=== PATIENT | male | born 1965 | race Caucasian/White ===

== ENCOUNTER 2022-11-23 07:44 | Inpatient (IN) | payer MEDICARE, MEDICAID, SELFPAY ==
[2022-11-23] VITALS (7 sets, daily range): BP systolic 151–161; BP diastolic 80–91; PULSE 60–61; RESP 18–20; TEMP 36.4–36.8; O2SAT 91–99; BMI 40.9
--- NOTE | ~2022-11-23 | US_ITS ---
EXAMINATION: US venous doppler [facility] DATE: 11/24/2022 13:48 INDICATION: Left lower limb edema. TECHNIQUE: Grayscale ultrasound images without and with compression and Doppler ultrasound images of the left lower extremity veins were obtained. COMPARISON: None. FINDINGS: The visualized portions of left common femoral vein, profunda (deep) femoral vein, femoral vein, popl iteal vein, peroneal veins, posterior tibial veins, and greater saphenous vein outflow are patent. Zepeda bcutaneous edema is noted. IMPRESSION: 1. No deep venous thrombosis. Reviewed, dictated and finalized at location A.
--- NOTE | ~2022-11-23 | CT_ITS ---
EXAMINATION: CT brain wo con DATE: 11/23/2022 18:40 INDICATION: confusion . TECHNIQUE: Computed tomography (CT) of the head was performed without intravenous contrast. The mA wa s adjusted according to patient size. Iterative reconstruction technique was employed. The dose-lengt h product was 681.00 mGy-cm. COMPARISON: None. FINDINGS: No acute intracranial hemorrhage or extra-axial fluid collection. No hydrocephalus, mass, or herniation. No acute ischemic infarct. Unremarkable dural venous sinus attenuation. No acute osseous abnormality. The aerated spaces are clear. Mild atrophy and chronic white matter change. Mild atherosclerotic intracranial calcification. IMPRESSION: No acute intracranial process. Reviewed, dictated and finalized at location K.
--- NOTE | ~2022-11-23 | US_ITS ---
EXAMINATION: US arterial ankle brachial ind DATE: 11/24/2022 13:48 INDICATION: Left calf ulcer. TECHNIQUE: Segmental pressures and plethysmographic and Doppler waveforms of the brachial and lower e xtremity arteries were obtained. COMPARISON: None. FINDINGS: Right and left brachial artery pressures of 136 mm Hg and 126 mm Hg, respectively, are concordant (no rmal difference <= 30 mmHg). There is a right below-knee amputation. The left ankle-brachial index (PAUL) could not be measured due to inability to cuff occlude the arteri es. (normal >= 0.9-1.0). The left great toe-brachial index (TBI) is 0.86 (normal >= 0.65). Arterial D oppler waveforms are biphasic at the ankle. IMPRESSION: 1. Normal left TBI and nondiagnostic left PAUL. No significant arterial occlusive disease. 2. Right below-knee amputation. Reviewed, dictated and finalized at location A. IMPRESSION: 1. Normal left TBI and nondiagnostic left PAUL. No significant arterial occlusiv e disease. 2. Right below-knee amputation.
--- NOTE | 2022-11-23 08:01 | ED.WOUNDLAC ---
HPI - Wound/Laceration General Chief Complaint: Wound/Laceration Stated Complaint: heel wound Time Seen by Provider: 11/23/22 07:48 History of Present Illness HPI narrative: Pt presents with a wound to his left leg and surrounding redness and bleeding from wound. Pt says the wounds have been present for two days and he has been on oral antibiotics but it is getting worse. Pt is coming [place]. Pt has history of DM and cellulitis. Pt has right BKA. Related Data Home Medications Medication Instructions Recorded Confirmed Lactobacillus acidophilus 2,000 mmu cells PO BID 11/22/22 (Acidophilus capsule) Saccharomyces boulardii 250 mg 250 mg PO DAILY 11/22/22 capsule (Florastor) amitriptyline 50 mg tablet 50 mg PO QHS 11/22/22 apixaban 5 mg tablet (Eliquis) 5 mg PO BID 11/22/22 aspirin 81 mg tablet,delayed 81 mg PO DAILY 11/22/22 release (Adult Low Dose Aspirin) atorvastatin 40 mg tablet (Lipitor) 40 mg PO QHS 11/22/22 benzonatate 100 mg capsule 100 mg PO TID PRN 11/22/22 buspirone 15 mg tablet 15 mg PO TID 11/22/22 clopidogrel 75 mg tablet (Plavix) 75 mg PO DAILY 11/22/22 doxycycline hyclate 100 mg capsule 100 mg PO BID 11/22/22 doxycycline hyclate 100 mg capsule 100 mg PO BID 11/22/22 dulaglutide 0.75 mg/0.5 mL 0.75 mg subcut WEEKLY 11/22/22 subcutaneous pen injector (Trulicity) famotidine 20 mg tablet 20 mg PO Q12H 11/22/22 ferrous sulfate 325 mg (65 mg 325 mg PO BID 11/22/22 iron) tablet,delayed release fluticasone propionate 110 1 puff inhalation Q12H 11/22/22 mcg/actuation HFA aerosol inhaler furosemide 40 mg tablet 40 mg PO QAM 11/22/22 gabapentin 100 mg capsule 100 mg PO Q8H 11/22/22 guaifenesin 100 mg/5 mL oral liquid 200 mg PO Q6H PRN 11/22/22 hydralazine 25 mg tablet 25 mg PO Q8H 11/22/22 insulin glargine 100 unit/mL (3 23 unit subcut QPM 11/22/22 mL) subcutaneous pen insulin lispro 100 unit/mL 10 unit subcut .before meals 11/22/22 subcutaneous solution (Admelog U-100 Insulin lispro) ipratropium 0.5 mg-albuterol 3 mg 3 ml inhalation Q6H PRN 11/22/22 (2.5 mg base)/3 mL nebulization soln isosorbide dinitrate 30 mg tablet 30 mg PO .am 11/22/22 levothyroxine 75 mcg capsule 75 mcg PO DAILY 11/22/22 losartan 50 mg tablet 50 mg PO DAILY 11/22/22 metoclopramide HCl 5 mg tablet 5 mg PO DAILY 11/22/22 metolazone 5 mg tablet 5 mg PO DAILY 11/22/22 metoprolol tartrate 50 mg tablet 50 mg PO BID 11/22/22 pyridoxine (vitamin B6) 50 mg 25 mg PO DAILY 11/22/22 tablet sennosides 8.6 mg-docusate sodium 1 tab-cap PO BID PRN 11/22/22 50 mg capsule (Senna Plus) tiotropium bromide 18 mcg capsule 1 cap inhalation DAILY 11/22/22 with inhalation device (Spiriva with HandiHaler) tramadol 50 mg tablet 50 mg PO Q6H PRN 11/22/22 trazodone 100 mg tablet 100 mg PO QHS PRN 11/22/22 umeclidinium 62.5 mcg-vilanterol 1 inh inhalation DAILY 11/22/22 25 mcg/actuation powdr for inhalation (Anoro Ellipta) Allergies Allergy/AdvReac Type Severity Reaction Status Date / Time No Known Allergies Allergy Unverified 11/22/22 13:49 Review of Systems Review of Systems: All systems reviewed & are unremarkable except as noted in HPI and below PMFSH Past Medical History Medical History (Updated 11/23/22 @ 09:05 by Leonel Obregon III, DO) Anxiety CAD (coronary artery disease) COPD (chronic obstructive pulmonary disease) CVA (cerebral vascular accident) Depression Diabetes Diastolic heart failure GERD (gastroesophageal reflux disease) Hyperlipidemia Hypertension Hypothyroidism PAF (paroxysmal atrial fibrillation) Peripheral neuropathy PVD (peripheral vascular disease) Spinal stenosis Surgical History Surgical History (Updated 11/22/22 @ 14:08 by Kelin Caldwell MD) History of hernia repair Hx of CABG Hx of right BKA Family History Family History Mother Diabetes mellitus Hypertension Heart
[2022-11-23 08:36] LABS: Basophils Percent Auto 0.7 % (0.2-1.2); Eosinophils Absolute Auto 0.1 K/mm3 (0-0.3); Hematocrit 26.8 % (42.0-52.0); Immature Granulocyte Absolute 0.01 K/mm3 (0.00-0.031); Immature Granulocyte Percent A 0.3 % (0-0.5); Lymphocytes Absolute Auto 0.29 K/mm3 (0.9-3.2); Lymphocytes Percent Auto 9.7 % (18.3-44.2); Mean Corpuscular HGB Conc 29.9 g/dl (32-36); Mean Corpuscular Hemoglobin 25.4 pg (26-34); Mean Corpuscular Volume 85.1 fl (80-100); Mean Platelet Volume 11.6 fl (7.4-10.4); Monocytes Absolute Auto 0.3 K/mm3 (0.1-0.6); Neutrophils Absolute Auto 2.3 K/mm3 (1.3-6.7); Neutrophils Percent Auto 76.3 % (45.5-73.1); Platelet Count Result 181 k/mm3 (150-375); Red Blood Count 3.15 M/mm3 (4.6-6.20); Red Cell Distribution Width 18.1 % (11.5-14.5)
[2022-11-23 08:47] LABS: INR 1.7; Lactic Acid Reflex 0.7 mmol/L (0.7-2.0); Prothrombin Time 19.4 Seconds (11.1-14.7)
[2022-11-23 08:48] LABS: Partial Thromboplastin Time 41.1 SECONDS (22.3-36.8)
[2022-11-23 08:51] LABS: Alanine Aminotransferase 22 U/L (6-50); Albumin Level 3.9 g/dL (3.5-5.1); Alkaline Phosphatase 250 U/L (38-126); Anion Gap 6 mmol/L (8-16); Aspartate Amino Transferase 41 U/L (17-59); Blood Urea Nitrogen 77 mg/dL (9-20); CRP 3.7 mg/dL (<1.0); Carbon Dioxide 25 mmol/L (22-30); Chloride 106 mmol/L (98-107); Estimated CRCL calculation 40 ml/min; Estimated Glomerular Filt Rate 27; Glucose 138 mg/dL (65-110); Potassium 5.8 mmol/L (3.4-5.0); Sodium 137 mmol/L (137-145)
[2022-11-23] MEDS: CEFEPIME 2 GM/NS 50 ML 2 GM/50 ML BAG IVPB (08:52)
[2022-11-23 08:59] LABS: Hypochromasia 1+ (NORMAL); Platelet Estimate Adequate (Adequate)
[2022-11-23 09:00] LABS: Ovalocytes 1+ (NORMAL); Schistocytes None Seen (NORMAL)
[2022-11-23 09:33] LABS: Erythrocyte Sedimentation Rate 79 mm/hr (0-20)
--- NOTE | 2022-11-23 11:30 | ADMGEN ---
This patient, Wilfredo Bose, was admitted to Medical Room 254-01. Patient/family oriented to hospital policies and general routines including ID bracelet, bed and alarms, visiting hours, pain management, procedures, bathroom and other care routines, personal items, smoking policy, room service/diet, and visiting hours. Information on how to activate the Rapid Response Team has been discussed. Patient/Family are encouraged to report perceived risks to care and to ask questions if they do not understand what they are told or what they should do.
[2022-11-23 12:05] LABS: Glucose Point of Care 149 mg/dl (65-105)
--- NOTE | 2022-11-23 12:35 | PM.IMHP ---
H&P: HPI History of Present Illness Date/Time: 11/23/22 12:35 Chief Complaint: Left leg wound. Narrative: This is a 57-year-old male with insulin-dependent diabetes, coronary artery disease, paroxysmal atrial fibrillation, chronic kidney disease, hypertension, COPD, and other comorbidities who presented to the emergency department via EMS from [facility] for evaluation of the left leg wound. Patient provides the following history. He endorses marked swelling in the left leg and reports having blisters which popped and left ulcerated areas. A couple of days ago he was started on 2 different antibiotics, he does not know which medications he was started on, and is my understanding that the redness has gotten worse and today staff noticed some bleeding from 1 of the sites and he was brought in for evaluation. Also of note the staff members at the alf that the patient seemed to be a bit confused today. He was afebrile on arrival but endorses subjective fever and chills which is unusual for him. He is otherwise feeling okay but does complain of tight discomfort in the left leg due to the swelling. The ulcerated areas are not particularly painful as he has peripheral neuropathy. Regarding the confusion, he does feel perhaps a bit disoriented, for instance he thought he was in a Chapel at the time that we were talking when in fact we were in his room in the hospital. He is otherwise alert to name, age, date of , time, president, etc.. He denies cold and flu symptoms, chest pain, shortness a breath, cough, nausea, vomiting, diarrhea, and dysuria. No vertigo, acute auditory or visual changes, facial droop, difficulties with speaking and swallowing, and focal weakness. Review of Systems Review of Systems: Twelve systems were reviewed and are negative except for as per HPI. [facility] Past Medical History Medical History Anxiety Cerebrovascular accident Chronic anemia Chronic anticoagulation Chronic kidney disease, stage IV (severe) Chronic obstructive pulmonary disease Chronic respiratory failure with hypoxia, on home oxygen therapy Coronary artery disease Depression Diastolic heart failure Gastroesophageal reflux disease Hyperlipidemia Hypertension Hypothyroidism Insulin dependent type 2 diabetes mellitus Paroxysmal atrial fibrillation Peripheral neuropathy Peripheral vascular disease Spinal stenosis Surgical History Surgical History (Updated 11/23/22 @ 13:41 by Lindsay Orlando PA-C) History of cardiac catheterization History of four vessel coronary artery bypass graft History of hernia repair History of right below knee amputation Family History Family History Mother Diabetes mellitus Hypertension Heart disease Father Crohn disease Cancer Social History Social History (Updated 11/23/22 @ 13:40 by Lindsay Orlando PA-C) Social History: Surrogate medical decision maker: Wilfredo Bose Sr. (father). Code status: Do not resuscitate. Smoking packs per day: 1 Smoking cigarettes per day: 20.0 Years smoked: 4 Smoking pack-years: 4.00 Smoking status: Former smoker Tobacco type: cigarettes Smoking end date: 08/21/83 Alcohol intake: never Substance use: current Substance use type: marijuana Last use: 09/25/2022 Lack of Transportation: No Lack of Food: Never True Current Housing: I Have Housing Concerned About Future Housing: No Difficulty Paying Gas/Electric Bills: No Difficulty Paying for Meds: No Currently Unemployed: No Education: High School Diploma/GED Difficulty w/ Childcare or Family Care: No Living arrangements: assisted living Additional living arrangements comments: [facility]. Spiritual care concerns: No Meds Home Medications and Allergies Home Medications Medication Instructions Recorded Confirm
[2022-11-23] MEDS: metroNIDAZOLE 500 MG/ISO 100ML 500 MG/100 ML BAG 100 MG IVPB (16:07)
[2022-11-23] MEDS: BETAMETHASONE/CLOTRIMAZOLE CR 15 GM TUBE 1 APPLIC TOPICAL (16:08)
[2022-11-23 16:48] LABS: Alveolar/Arterial O2 Gradient 54.9 mmHg; Base Excess ABG -0.8 mEq/l (+/-2.0); Carboxyhemoglobin 0.1 % THb (0-2.0); Fractional Inspired Oxygen 21 %; HCO3 ABG 24.4 mEq/l (22.0-26.0); Methemoglobin ABG 0.4 %THb (0-1.5); Oxygen Content ABG 9.4 %vol (16.0-22.0); PCO2 ABG 42.6 mmHg (35.0-45.0); PO2 FiO2 Ratio Arterial Blood 2.09 %; Reduced Hemoglobin 23.3 %THb (0-5.0); Total Hemoglobin 8.7 g/dL (12.0-18.0); pH ABG 7.375 (7.350-7.450)
[2022-11-23 16:50] LABS: Oxyhemoglobin 76.2 % THb (90.0-100.0)
[2022-11-23 16:52] LABS: Oxygen Saturation ABG 78.5 % (95.0-100.0); PO2 ABG 43.8 mmHg (80.0-100.0); Site Drawn RIGHT RADIAL
[2022-11-23 16:53] LABS: Device ROOM AIR; Modified Allen's Test Pass
[2022-11-23 17:06] LABS: Glucose Point of Care 188 mg/dl (65-105)
[2022-11-23 17:22] LABS: Immature Reticulocyte Fraction 19.3 % (3.0-15.9); Reticulocyte Hemoglobin Conten 22.4 pg (28.2-35.7); Reticulocyte Percent 1.64 % (0.7-4.3); Reticulocytes Absolute 0.05 B/L (32.2-175.7)
[2022-11-23 17:29] LABS: Ammonia 15 umol/L (9-30)
[2022-11-23 17:30] LABS: Anion Gap 5 mmol/L (8-16); Blood Urea Nitrogen 71 mg/dL (9-20); Calcium 8.7 mg/dL (8.4-10.2); Carbon Dioxide 27 mmol/L (22-30); Chloride 106 mmol/L (98-107); Estimated CRCL calculation 42 ml/min; Estimated Glomerular Filt Rate 28; Glucose 162 mg/dL (65-110); Magnesium 2.7 mg/dL (1.6-2.3); Potassium 5.2 mmol/L (3.4-5.0); Sodium 138 mmol/L (137-145)
[2022-11-23 18:26] LABS: Iron 22 ug/dL (49-181)
[2022-11-23 18:35] LABS: Percent Iron Saturation 8 % (20-50)
[2022-11-23 18:38] LABS: Folic Acid 8.5 ng/mL (2.76->20)
[2022-11-23 20:35] LABS: Glucose Point of Care 193 mg/dl (65-105)
[2022-11-23] MEDS: FLUTICASONE PROP 110 MCG INHALER 12 GM (*SP) 1 PUFF INHALATION (21:30)
[2022-11-23] MEDS: traZODone HCL 50 MG TABLET 100 MG PO (22:01)
[2022-11-23] MEDS: traMADol HCL (*CRX) 50 MG TABLET PO (22:01)
[2022-11-23] MEDS: FAMOTIDINE 20 MG TABLET PO (22:01)
[2022-11-23] MEDS: AMITRIPTYLINE HCL 25 MG TABLET 50 MG PO (22:01)
[2022-11-23] MEDS: ATORVASTATIN 40 MG TABLET PO (22:01)
[2022-11-23] MEDS: hydrALAZINE HCL 25 MG TABLET 75 MG PO (22:01)
[2022-11-23] MEDS: GABAPENTIN 100 MG CAPSULE PO (22:01)
[2022-11-24] VITALS (8 sets, daily range): BP systolic 126–151; BP diastolic 65–68; PULSE 58–80; RESP 18–20; TEMP 36.4–36.7; O2SAT 92–97
--- NOTE | 2022-11-24 00:10 | PC.NURSE ---
Unable to obtain IV access, multiple attempts by this nurse, charge nurse, ICU charge nurse, and bathhouse attendant were unsuccessful. Dr Downs notified and order received for placement of PICC/Midline in the morning.
[2022-11-24 05:26] LABS: Hematocrit 25.5 % (42.0-52.0); Hemoglobin 7.5 g/dL (14.0-18.0); Mean Corpuscular HGB Conc 29.4 g/dl (32-36); Mean Corpuscular Hemoglobin 25.3 pg (26-34); Mean Corpuscular Volume 85.9 fl (80-100); Mean Platelet Volume 9.7 fl (7.4-10.4); Platelet Count Result 157 k/mm3 (150-375); Red Blood Count 2.97 M/mm3 (4.6-6.20); White Blood Count 3.3 K/mm3 (4.5-10.0)
[2022-11-24 05:41] LABS: Anion Gap 3 mmol/L (8-16); Blood Urea Nitrogen 68 mg/dL (9-20); Calcium 8.8 mg/dL (8.4-10.2); Carbon Dioxide 27 mmol/L (22-30); Chloride 107 mmol/L (98-107); Estimated CRCL calculation 48 ml/min; Estimated Glomerular Filt Rate 33; Glucose 139 mg/dL (65-110); Magnesium 2.6 mg/dL (1.6-2.3); Potassium 5.1 mmol/L (3.4-5.0); Sodium 137 mmol/L (137-145)
[2022-11-24] MEDS: GABAPENTIN 100 MG CAPSULE PO ×3 (06:14→21:02)
[2022-11-24] MEDS: LEVOTHYROXINE SODIUM 75 MCG TABLET PO (06:14)
[2022-11-24] MEDS: hydrALAZINE HCL 25 MG TABLET 75 MG PO ×3 (06:14→21:02)
[2022-11-24] MEDS: METOCLOPRAMIDE HCL 5 MG TABLET PO ×3 (06:14→16:55)
[2022-11-24 06:16] LABS: Hemoglobin A1C 6.9 % (<5.7)
[2022-11-24] MEDS: metroNIDAZOLE 500 MG/ISO 100ML 500 MG/100 ML BAG 100 MG IVPB ×3 (06:52→21:46)
[2022-11-24 08:31] LABS: Glucose Point of Care 148 mg/dl (65-105)
[2022-11-24 08:38] LABS: Free T4 Free Thyroxine Reflex 1.22 ng/dL (0.78-2.19)
[2022-11-24] MEDS: INSULIN ASPART (*BKC) 100 UNITS/ML 10 UNITS SUB-Q ×2 (08:55→17:33)
[2022-11-24] MEDS: PYRIDOXINE HCL 50 MG TABLET PO (09:01)
[2022-11-24] MEDS: ACIDOPHILUS/BULGARICUS CHEWABLE TABLET 2 TABLET PO ×2 (09:02→16:55)
[2022-11-24] MEDS: APIXABAN 5 MG TABLET PO ×2 (09:02→20:59)
[2022-11-24] MEDS: busPIRone HCL 5 MG TABLET 15 MG PO ×3 (09:02→16:56)
[2022-11-24] MEDS: ISOSORBIDE MONONITRATE 30 MG TAB.ER.24H PO (09:03)
[2022-11-24] MEDS: LOSARTAN POTASSIUM 50 MG TABLET PO (09:04)
[2022-11-24] MEDS: METOPROLOL TARTRATE 50 MG TAB PO ×2 (09:04→20:59)
[2022-11-24] MEDS: ASPIRIN 81 MG ENTERIC TABLET PO (09:05)
[2022-11-24] MEDS: FUROSEMIDE 40 MG TABLET PO (09:05)
[2022-11-24] MEDS: FERROUS SULFATE 324 MG TABLET PO (09:05)
[2022-11-24] MEDS: SENNA/DOCUSATE SODIUM TABLET 1 TAB PO ×2 (09:05→16:55)
[2022-11-24] MEDS: FAMOTIDINE 20 MG TABLET PO ×2 (09:05→21:00)
[2022-11-24] MEDS: metOLazone 5 MG TABLET PO (09:06)
[2022-11-24] MEDS: SACCHAROMYCES BOULARDII 250 MG CAPSULE PO (09:06)
[2022-11-24] MEDS: CLOPIDOGREL BISULFATE 75 MG TABLET PO (09:06)
[2022-11-24] MEDS: BETAMETHASONE/CLOTRIMAZOLE CR 15 GM TUBE 1 APPLIC TOPICAL (09:08)
[2022-11-24] MEDS: traMADol HCL (*CRX) 50 MG TABLET PO ×3 (09:20→23:23)
[2022-11-24] MEDS: FLUTICASONE PROP 110 MCG INHALER 12 GM (*SP) 1 PUFF INHALATION ×2 (09:25→19:58)
[2022-11-24] MEDS: UMECLIDINIUM/VILANTEROL 62.5-25 MCG ELLIPTA 1 PUFF INHALATION (09:26)
[2022-11-24 10:00] LABS: Total Triiodothyronine (T3) 0.64 NG/ML (0.97-1.69)
--- NOTE | 2022-11-24 11:23 | PM.IMPN ---
Progress Note: A&P Assessment and Plan (1) Left leg cellulitis: Code(s): L03.116 - Cellulitis of left lower limb Status: Acute Assessment and Plan: Evidence of yeast on admission exam. He was started on doxycycline on 11/22/22 for cellulitis per nursing facility notes. Continue broad-spectrum IV antibiotics, cefepime, metronidazole, vancomycin. De-escalate when appropriate. ESR elevated 79. WBC 3.3. Check CRP and procalcitonin. Wound RN consulted and appreciate recommendations. Continue local wound care for ulcerations. Elevated LLE on 2 pillows for edema. Check PAUL and venous doppler LLE No drainage available for culture at this time. Blood cultures pending. Keep blood glucose levels under control, <200 mg/dL. A1c 6.9% (2) Hyperkalemia: Code(s): E87.5 - Hyperkalemia Status: Acute Assessment and Plan: K 5.8 on admission. Repeat potassium level improved. Patient does have CKD and is on losartan. Trend potassium level. Monitor potassium. K 5.1 today 11/24/22 Continue losartan for now and hold/treat if significantly elevated. (3) Diastolic heart failure: Qualifiers: Heart failure chronicity: chronic Qualified Code(s): I50.32 - Chronic diastolic (congestive) heart failure Code(s): I50.30 - Unspecified diastolic (congestive) heart failure Status: Chronic Assessment and Plan: Chronic. Does not appear in acute exacerbation. +edema LLE but may be secondary to cellulitis versus CHF. Continue furosemide and metolazone. Elevate LLE. Right BKA (4) Insulin dependent type 2 diabetes mellitus: Code(s): E11.9 - Type 2 diabetes mellitus without complications; Z79.4 - USP (current) use of insulin Status: Chronic Assessment and Plan: Continue basal-bolus insulin at home dose. Lantus 23 units daily. Aspart 10 units with meals plus sliding scale insulin Accu-Cheks, and hypoglycemic protocol. hemoglobin A1c 6.9% (5) Chronic kidney disease, stage IV (severe): Code(s): N18.4 - Chronic kidney disease, stage 4 (severe) Status: Chronic Assessment and Plan: Sees Dr. Caldwell outpatient; recent labs note a creatinine of 2.0 for on 11/08/2022 and 2.52 on 11/15/2022. BUN 68, creatinine 2.1 today 11/24/22 appears baseline. Monitor I/Os and renal function on antibiotic therapy. (6) Chronic anemia: Code(s): D64.9 - Anemia, unspecified Status: Chronic Assessment and Plan: Unsure of baseline; he has not been at this facility before. Obtain prior records from [facility]. Continue ferrous sulfate 325 mg PO daily and add vitamin C 500 mg daily. Serum iron and saturation low, ferritin within normal limits. May also be secondary to CKD. Patient appears to be taking aspirin 81 mg daily, plavix 75 mg daily and Eliquis. Hold Plavix. Clarify medications and check FOBT. (7) Paroxysmal atrial fibrillation: Code(s): I48.0 - Paroxysmal atrial fibrillation Status: Chronic Assessment and Plan: Currently sounds to be in a sinus rhythm. Continue metoprolol and Eliquis. (8) Chronic anticoagulation: Code(s): Z79.01 - termite renewal inspector (current) use of anticoagulants Status: Chronic Assessment and Plan: Continue Eliquis for stroke prophylaxis. (9) Hypertension: Code(s): I10 - Essential (primary) hypertension Status: Chronic Assessment and Plan: Blood pressures were reviewed. Continue metoprolol, losartan, furosemide, and isosorbide at home doses (10) Peripheral vascular disease: Code(s): I73.9 - Peripheral vascular disease, unspecified Status: Chronic Assessment and Plan: No evidence of acute limb ischemia or c/o claudication. PAUL LLE pending. Continue aspirin and Eliquis. Hold plavix due to anemia until baseline levels can be established. (11) Chronic obstructive pulmonary disease: Code(s): J44.9 - Chronic obstructive pulmonary d
[2022-11-24 12:12] LABS: Glucose Point of Care 98 mg/dl (65-105)
--- NOTE | 2022-11-24 13:23 | PC.NURSE ---
On 11/24/22, the student, [Tana Mtz], provided care and completed [facility] documentation on this patient. I have reviewed the student's documentation and agree with the findings.
[2022-11-24 16:43] LABS: Procalcitonin 0.1 ng/mL
[2022-11-24 17:14] LABS: Glucose Point of Care 138 mg/dl (65-105)
[2022-11-24] MEDS: INSULIN GLARGINE (*BKC) 100 UNITS/ML 23 UNITS SUB-Q (17:33)
[2022-11-24 20:18] LABS: Glucose Point of Care 97 mg/dl (65-105)
[2022-11-24] MEDS: ATORVASTATIN 40 MG TABLET PO (20:58)
[2022-11-24] MEDS: FLUTICASONE PROPIONATE 0.05% NA SPR 16 GM BTL (*BKC) 1 SPRAY NASAL (20:58)
[2022-11-24] MEDS: traZODone HCL 50 MG TABLET 100 MG PO (20:59)
[2022-11-24] MEDS: AMITRIPTYLINE HCL 25 MG TABLET 50 MG PO (20:59)
[2022-11-25] VITALS (8 sets, daily range): BP systolic 128–143; BP diastolic 60–71; PULSE 58–68; RESP 18–20; TEMP 36.3–36.5; O2SAT 94–98
[2022-11-25 06:00] LABS: Basophils Percent Auto 0.7 % (0.2-1.2); Eosinophils Absolute Auto 0.1 K/mm3 (0-0.3); Eosinophils Percent Auto 2.8 % (0-4.4); Hematocrit 24.9 % (42.0-52.0); Hemoglobin 7.3 g/dL (14.0-18.0); Immature Granulocyte Absolute 0.01 K/mm3 (0.00-0.031); Immature Granulocyte Percent A 0.4 % (0-0.5); Lymphocytes Absolute Auto 0.39 K/mm3 (0.9-3.2); Lymphocytes Percent Auto 13.7 % (18.3-44.2); Mean Corpuscular HGB Conc 29.3 g/dl (32-36); Mean Corpuscular Hemoglobin 24.9 pg (26-34); Mean Platelet Volume 10.2 fl (7.4-10.4); Monocytes Absolute Auto 0.3 K/mm3 (0.1-0.6); Monocytes Percent Auto 10.9 % (2.6-8.5); Neutrophils Percent Auto 71.5 % (45.5-73.1); Platelet Count Result 169 k/mm3 (150-375); Red Blood Count 2.93 M/mm3 (4.6-6.20); White Blood Count 2.8 K/mm3 (4.5-10.0)
[2022-11-25] MEDS: GABAPENTIN 100 MG CAPSULE PO ×3 (06:05→22:57)
[2022-11-25] MEDS: metroNIDAZOLE 500 MG/ISO 100ML 500 MG/100 ML BAG 100 MG IVPB (06:05)
[2022-11-25] MEDS: LEVOTHYROXINE SODIUM 100 MCG TABLET PO (06:05)
[2022-11-25] MEDS: METOCLOPRAMIDE HCL 5 MG TABLET PO ×3 (06:05→16:22)
[2022-11-25] MEDS: hydrALAZINE HCL 25 MG TABLET 75 MG PO ×3 (06:07→22:57)
[2022-11-25 06:10] LABS: Alanine Aminotransferase 17 U/L (6-50); Albumin Level 3.4 g/dL (3.5-5.1); Alkaline Phosphatase 221 U/L (38-126); Anion Gap 6 mmol/L (8-16); Aspartate Amino Transferase 17 U/L (17-59); Bilirubin,Total 0.7 mg/dL (0.2-1.3); Blood Urea Nitrogen 58 mg/dL (9-20); CRP 2.2 mg/dL (<1.0); Calcium 8.5 mg/dL (8.4-10.2); Carbon Dioxide 27 mmol/L (22-30); Chloride 104 mmol/L (98-107); Estimated CRCL calculation 46 ml/min; Estimated Glomerular Filt Rate 31; Glucose 70 mg/dL (65-110); Potassium 4.9 mmol/L (3.4-5.0); Sodium 137 mmol/L (137-145)
[2022-11-25] MEDS: traMADol HCL (*CRX) 50 MG TABLET PO (06:12)
[2022-11-25 06:27] LABS: Anisocytosis 2+ (NORMAL); Hypochromasia 2+ (NORMAL); Ovalocytes 1+ (NORMAL); Platelet Estimate Adequate (Adequate); Schistocytes Rare (NORMAL)
[2022-11-25] MEDS: FLUTICASONE PROP 110 MCG INHALER 12 GM (*SP) 1 PUFF INHALATION (08:26)
[2022-11-25] MEDS: UMECLIDINIUM/VILANTEROL 62.5-25 MCG ELLIPTA 1 PUFF INHALATION (08:26)
[2022-11-25 08:34] LABS: Glucose Point of Care 68 mg/dl (65-105)
[2022-11-25] MEDS: BETAMETHASONE/CLOTRIMAZOLE CR 15 GM TUBE 1 APPLIC TOPICAL (08:46)
[2022-11-25] MEDS: FERROUS SULFATE 324 MG TABLET PO (08:46)
[2022-11-25] MEDS: busPIRone HCL 5 MG TABLET 15 MG PO ×3 (09:14→16:20)
[2022-11-25] MEDS: FLUTICASONE PROPIONATE 0.05% NA SPR 16 GM BTL (*BKC) 1 SPRAY NASAL ×2 (09:15→22:53)
[2022-11-25] MEDS: SENNA/DOCUSATE SODIUM TABLET 1 TAB PO ×2 (09:17→16:20)
[2022-11-25] MEDS: FAMOTIDINE 20 MG TABLET PO ×2 (09:17→22:55)
[2022-11-25] MEDS: PYRIDOXINE HCL 50 MG TABLET PO (09:18)
[2022-11-25] MEDS: APIXABAN 5 MG TABLET PO ×2 (09:18→22:52)
[2022-11-25] MEDS: ACIDOPHILUS/BULGARICUS CHEWABLE TABLET 2 TABLET PO ×2 (09:18→16:20)
[2022-11-25] MEDS: ISOSORBIDE MONONITRATE 30 MG TAB.ER.24H PO (09:18)
[2022-11-25] MEDS: ASCORBIC ACID 500 MG TABLET PO (09:18)
[2022-11-25] MEDS: ASPIRIN 81 MG ENTERIC TABLET PO (09:18)
[2022-11-25] MEDS: METOPROLOL TARTRATE 50 MG TAB PO ×2 (09:19→22:56)
[2022-11-25] MEDS: metOLazone 5 MG TABLET PO (09:21)
[2022-11-25] MEDS: SACCHAROMYCES BOULARDII 250 MG CAPSULE PO (09:21)
[2022-11-25] MEDS: LOSARTAN POTASSIUM 50 MG TABLET PO (09:21)
[2022-11-25] MEDS: FUROSEMIDE 40 MG TABLET PO (10:23)
[2022-11-25 12:08] LABS: Glucose Point of Care 106 mg/dl (65-105)
--- NOTE | 2022-11-25 14:51 | PM.IMPN ---
Progress Note: A&P Assessment and Plan (1) Left leg cellulitis: Code(s): L03.116 - Cellulitis of left lower limb Status: Acute Assessment and Plan: Evidence of yeast on exam. Appears he was started on doxycycline a few days prior to admission, but appearance worsened per patient. Continue IV cefepime, metronidazole, vancomycin, started 11/23. No available wound culture. 11/23 blood cultures negative to date Venous doppler LLE and PAUL negative (2) Hyperkalemia: Code(s): E87.5 - Hyperkalemia Status: Resolved Assessment and Plan: Repeat potassium level has improved. Continue losartan for now and monitor. Improved. (3) Diastolic heart failure: Qualifiers: Heart failure chronicity: chronic Qualified Code(s): I50.32 - Chronic diastolic (congestive) heart failure Code(s): I50.30 - Unspecified diastolic (congestive) heart failure Status: Chronic Assessment and Plan: Chronic, does not appear to be in acute exacerbation. Improving left leg edema with antibiotics. Continue furosemide and metolazone. elevate LLE on pillows. (4) Insulin dependent type 2 diabetes mellitus: Code(s): E11.9 - Type 2 diabetes mellitus without complications; Z79.4 - terminal carman (current) use of insulin Status: Chronic Assessment and Plan: Continue basal insulin. Initiate sliding scale insulin, Accu-Cheks, and hypoglycemic protocol. hemoglobin A1c 6.9%. Glucose 68 this morning 11/25. He reports feeling shaky. Decrease lantus to 20 units daily. Trulicity unavailable on formulary and cannot be brought from home. Resume at discharge. (5) Chronic kidney disease, stage IV (severe): Code(s): N18.4 - Chronic kidney disease, stage 4 (severe) Status: Chronic Assessment and Plan: Sees Dr. Caldwell; recent labs note a creatinine of 2.0 for on 11/08/2022 and 2.52 on 11/15/2022. Stable. Monitor renal function on current therapy. (6) Chronic anemia: Code(s): D64.9 - Anemia, unspecified Status: Chronic Assessment and Plan: Medical records from [facility] show Hgb 7-8.4 since April 2022. Continue iron supplement and vitamin C. B12 and folic acid within normal limits. Hemoccult stool x1. Patient appears to have been taking Eliquis, aspirin and plavix concurrently since at least April. Last cardiac cath 05/2022 without intervention and notable patent grafts. Will stop plavix and continue Eliquis and aspirin 81 mg. Monitor for acute bleeding. (7) Paroxysmal atrial fibrillation: Code(s): I48.0 - Paroxysmal atrial fibrillation Status: Chronic Assessment and Plan: HR regular and appears to be in a sinus rhythm. Continue metoprolol and Eliquis. (8) Chronic anticoagulation: Code(s): Z79.01 - halfway (current) use of anticoagulants Status: Chronic Assessment and Plan: Continue apixaban for stroke prophylaxis for afib. (9) Hypertension: Qualifiers: Hypertension type: primary hypertension Qualified Code(s): I10 - Essential (primary) hypertension Code(s): I10 - Essential (primary) hypertension Status: Chronic Assessment and Plan: Blood pressures stable. Continue furosemide, hydralazine, isosorbide dinitrate, losartan and metoprolol at home doses as BP allows. (10) Peripheral vascular disease: Code(s): I73.9 - Peripheral vascular disease, unspecified Status: Chronic Assessment and Plan: No evidence of acute limb ischemia. Continue aspirin. Patient is on Eliquis for paroxysmal afib (11) Chronic obstructive pulmonary disease: Code(s): J44.9 - Chronic obstructive pulmonary disease, unspecified Status: Chronic Assessment and Plan: Not in acute exacerbation. Continue Anoro and flovent Plan CODE STATUS: DNR Discharge disposition: Return to SNF Antibiotic: day 3 Time Spent With Patient Time with
[2022-11-25 17:17] LABS: Glucose Point of Care 138 mg/dl (65-105)
[2022-11-25] MEDS: INSULIN ASPART (*BKC) 100 UNITS/ML 10 UNITS SUB-Q (17:20)
[2022-11-25] MEDS: INSULIN GLARGINE (*BKC) 100 UNITS/ML 20 UNITS SUB-Q (17:21)
[2022-11-25 19:52] LABS: Glucose Point of Care 77 mg/dl (65-105)
[2022-11-25] MEDS: AMITRIPTYLINE HCL 25 MG TABLET 50 MG PO (22:52)
[2022-11-25] MEDS: ATORVASTATIN 40 MG TABLET PO (22:54)
[2022-11-25] MEDS: traZODone HCL 50 MG TABLET 100 MG PO (22:56)
[2022-11-26] VITALS (7 sets, daily range): BP systolic 130–173; BP diastolic 64–68; PULSE 58–68; RESP 16–20; TEMP 36.6–36.8; O2SAT 94–96
[2022-11-26] MEDS: traMADol HCL (*CRX) 50 MG TABLET PO ×4 (00:56→21:32)
[2022-11-26] MEDS: hydrALAZINE HCL 25 MG TABLET 75 MG PO ×3 (05:22→20:44)
[2022-11-26] MEDS: METOCLOPRAMIDE HCL 5 MG TABLET PO ×3 (05:22→18:03)
[2022-11-26] MEDS: LEVOTHYROXINE SODIUM 100 MCG TABLET PO (05:22)
[2022-11-26] MEDS: GABAPENTIN 100 MG CAPSULE PO ×3 (05:23→20:45)
[2022-11-26 06:02] LABS: Basophils Percent Auto 0.7 % (0.2-1.2); Eosinophils Absolute Auto 0.1 K/mm3 (0-0.3); Eosinophils Percent Auto 4.2 % (0-4.4); Hematocrit 25.5 % (42.0-52.0); Hemoglobin 7.3 g/dL (14.0-18.0); Immature Granulocyte Absolute 0.01 K/mm3 (0.00-0.031); Immature Granulocyte Percent A 0.3 % (0-0.5); Lymphocytes Absolute Auto 0.36 K/mm3 (0.9-3.2); Lymphocytes Percent Auto 12.5 % (18.3-44.2); Mean Corpuscular HGB Conc 28.6 g/dl (32-36); Mean Corpuscular Hemoglobin 24.3 pg (26-34); Mean Platelet Volume 9.8 fl (7.4-10.4); Monocytes Absolute Auto 0.3 K/mm3 (0.1-0.6); Monocytes Percent Auto 9.4 % (2.6-8.5); Neutrophils Absolute Auto 2.1 K/mm3 (1.3-6.7); Neutrophils Percent Auto 72.9 % (45.5-73.1); Platelet Count Result 170 k/mm3 (150-375); Red Cell Distribution Width 17.9 % (11.5-14.5); White Blood Count 2.9 K/mm3 (4.5-10.0)
[2022-11-26 06:19] LABS: Alanine Aminotransferase 16 U/L (6-50); Albumin Level 3.6 g/dL (3.5-5.1); Alkaline Phosphatase 220 U/L (38-126); Anion Gap 6 mmol/L (8-16); Aspartate Amino Transferase 19 U/L (17-59); Bilirubin,Total 0.7 mg/dL (0.2-1.3); Blood Urea Nitrogen 57 mg/dL (9-20); Calcium 8.9 mg/dL (8.4-10.2); Carbon Dioxide 29 mmol/L (22-30); Chloride 104 mmol/L (98-107); Estimated CRCL calculation 48 ml/min; Estimated Glomerular Filt Rate 33; Glucose 82 mg/dL (65-110); Potassium 4.8 mmol/L (3.4-5.0); Sodium 139 mmol/L (137-145)
[2022-11-26 06:32] LABS: Hypochromasia 2+ (NORMAL); Platelet Estimate Adequate (Adequate)
[2022-11-26 06:33] LABS: Anisocytosis 1+ (NORMAL); Ovalocytes 1+ (NORMAL); Schistocytes None Seen (NORMAL)
[2022-11-26 08:32] LABS: Glucose Point of Care 78 mg/dl (65-105)
[2022-11-26] MEDS: UMECLIDINIUM/VILANTEROL 62.5-25 MCG ELLIPTA 1 PUFF INHALATION (08:54)
[2022-11-26] MEDS: FLUTICASONE PROP 110 MCG INHALER 12 GM (*SP) 1 PUFF INHALATION ×2 (08:56→20:17)
[2022-11-26] MEDS: FERROUS SULFATE 324 MG TABLET PO (09:50)
[2022-11-26] MEDS: ASCORBIC ACID 500 MG TABLET PO (09:51)
[2022-11-26] MEDS: APIXABAN 5 MG TABLET PO ×2 (09:51→20:43)
[2022-11-26] MEDS: BETAMETHASONE/CLOTRIMAZOLE CR 15 GM TUBE 1 APPLIC TOPICAL (09:51)
[2022-11-26] MEDS: ACIDOPHILUS/BULGARICUS CHEWABLE TABLET 2 TABLET PO ×2 (09:51→18:03)
[2022-11-26] MEDS: ASPIRIN 81 MG ENTERIC TABLET PO (09:51)
[2022-11-26] MEDS: busPIRone HCL 5 MG TABLET 15 MG PO ×3 (09:51→18:03)
[2022-11-26] MEDS: FLUTICASONE PROPIONATE 0.05% NA SPR 16 GM BTL (*BKC) 1 SPRAY NASAL ×2 (09:52→20:47)
[2022-11-26] MEDS: SACCHAROMYCES BOULARDII 250 MG CAPSULE PO (09:52)
[2022-11-26] MEDS: SENNA/DOCUSATE SODIUM TABLET 1 TAB PO ×2 (09:52→18:03)
[2022-11-26] MEDS: metOLazone 5 MG TABLET PO (09:52)
[2022-11-26] MEDS: PYRIDOXINE HCL 50 MG TABLET PO (09:52)
[2022-11-26] MEDS: LOSARTAN POTASSIUM 50 MG TABLET PO (09:52)
[2022-11-26] MEDS: ISOSORBIDE MONONITRATE 30 MG TAB.ER.24H PO (09:52)
[2022-11-26] MEDS: FUROSEMIDE 40 MG TABLET PO (09:52)
[2022-11-26] MEDS: FAMOTIDINE 20 MG TABLET PO ×2 (09:52→20:45)
[2022-11-26] MEDS: METOPROLOL TARTRATE 50 MG TAB PO ×2 (10:00→20:43)
[2022-11-26 12:00] LABS: Glucose Point of Care 100 mg/dl (65-105)
--- NOTE | 2022-11-26 12:31 | PM.IMPN ---
Progress Note: A&P Assessment and Plan (1) Left leg cellulitis: Code(s): L03.116 - Cellulitis of left lower limb Status: Acute Assessment and Plan: Evidence of yeast on exam. Appears he was started on doxycycline a few days prior to admission, but appearance worsened per patient. Treated with IV cefepime, metronidazole, vancomycin, started 11/23- 11/26. Transition to oral Doxycycline 100 mg PO BID for MRSA coverage (patient has CKD4 and unable to take Bactrim DS, Linezolid contraindicated due to TCA use, and would avoid clindamycin given risk for Cdiff) and add amoxicillin 500 mg PO Q8 hours x 7 days (total 10-day course). Add osvaldo wraps/kaity hose for edema control. No available wound culture. continue wound care. 11/23 blood cultures negative to date Venous doppler LLE and PAUL negative (2) Hyperkalemia: Code(s): E87.5 - Hyperkalemia Status: Resolved Assessment and Plan: Repeat potassium level has improved. Continue losartan for now and monitor. Improved. (3) Diastolic heart failure: Qualifiers: Heart failure chronicity: chronic Qualified Code(s): I50.32 - Chronic diastolic (congestive) heart failure Code(s): I50.30 - Unspecified diastolic (congestive) heart failure Status: Chronic Assessment and Plan: Chronic, does not appear to be in acute exacerbation. Improving left leg edema with antibiotics. Continue furosemide and metolazone. elevate LLE on pillows. (4) Insulin dependent type 2 diabetes mellitus: Code(s): E11.9 - Type 2 diabetes mellitus without complications; Z79.4 - penciller (current) use of insulin Status: Chronic Assessment and Plan: Continue basal insulin. Initiate sliding scale insulin, Accu-Cheks, and hypoglycemic protocol. hemoglobin A1c 6.9%. Glucose 68 this morning 11/25. He reports feeling shaky. Decrease lantus to 20 units daily. Trulicity unavailable on formulary and cannot be brought from home. Resume at discharge. Glucose 78-133. Stop aspart 10 units with meals and cover with sliding scale while inpatient. (5) Chronic kidney disease, stage IV (severe): Code(s): N18.4 - Chronic kidney disease, stage 4 (severe) Status: Chronic Assessment and Plan: Sees Dr. Caldwell; recent labs note a creatinine of 2.0 for on 11/08/2022 and 2.52 on 11/15/2022. Stable. Monitor renal function on current therapy. (6) Chronic anemia: Code(s): D64.9 - Anemia, unspecified Status: Chronic Assessment and Plan: Medical records from [facility] show Hgb 7-8.4 since April 2022. Continue iron supplement and vitamin C. B12 and folic acid within normal limits. Hemoccult stool x1, which is pending Patient appears to have been taking Eliquis, aspirin and plavix concurrently since at least April. Last cardiac cath 05/2022 without intervention and notable patent grafts. Stopped plavix. continued Eliquis and aspirin 81 mg. Monitor for acute bleeding. (7) Paroxysmal atrial fibrillation: Code(s): I48.0 - Paroxysmal atrial fibrillation Status: Chronic Assessment and Plan: HR regular and appears to be in a sinus rhythm. Continue metoprolol and Eliquis. (8) Chronic anticoagulation: Code(s): Z79.01 - penciller (current) use of anticoagulants Status: Chronic Assessment and Plan: Continue apixaban for stroke prophylaxis for afib. (9) Hypertension: Qualifiers: Hypertension type: primary hypertension Qualified Code(s): I10 - Essential (primary) hypertension Code(s): I10 - Essential (primary) hypertension Status: Chronic Assessment and Plan: Blood pressures stable. Continue furosemide, hydralazine, isosorbide dinitrate, losartan and metoprolol at home doses as BP allows. (10) Peripheral vascular disease: Code(s): I73.9 - Peripheral vascular disease, unspecified Status: Chronic Assessment and Plan
[2022-11-26] MEDS: AMOXICILLIN 500 MG CAPSULE PO ×2 (13:09→20:43)
[2022-11-26 17:11] LABS: Glucose Point of Care 111 mg/dl (65-105)
[2022-11-26] MEDS: INSULIN GLARGINE (*BKC) 100 UNITS/ML 10 UNITS SUB-Q (18:50)
[2022-11-26] MEDS: DOXYCYCLINE HYCLATE 100 MG TABLET PO (20:43)
[2022-11-26] MEDS: AMITRIPTYLINE HCL 25 MG TABLET 50 MG PO (20:47)
[2022-11-26] MEDS: traZODone HCL 50 MG TABLET 100 MG PO (20:48)
[2022-11-26] MEDS: ATORVASTATIN 40 MG TABLET PO (20:49)
[2022-11-26] MEDS: BENZONATATE 100 MG CAPSULE PO (21:33)
[2022-11-26 22:01] LABS: Glucose Point of Care 128 mg/dl (65-105)
[2022-11-27] VITALS (10 sets, daily range): BP systolic 124–166; BP diastolic 57–76; PULSE 58–68; RESP 18–20; TEMP 36.2–36.5; O2SAT 93–100
[2022-11-27] MEDS: hydrALAZINE HCL 25 MG TABLET 75 MG PO ×3 (05:41→22:08)
[2022-11-27] MEDS: LEVOTHYROXINE SODIUM 100 MCG TABLET PO (05:41)
[2022-11-27] MEDS: GABAPENTIN 100 MG CAPSULE PO ×3 (05:41→22:09)
[2022-11-27] MEDS: METOCLOPRAMIDE HCL 5 MG TABLET PO ×2 (05:41→17:13)
[2022-11-27] MEDS: SALINE 0.65% NAS SOLN 44 ML BTL 1 SPRAY NASAL (05:42)
[2022-11-27] MEDS: traMADol HCL (*CRX) 50 MG TABLET PO ×2 (05:47→18:04)
[2022-11-27] MEDS: AMOXICILLIN 500 MG CAPSULE PO ×3 (06:13→22:08)
[2022-11-27 06:41] LABS: Basophils Percent Auto 0.9 % (0.2-1.2); Eosinophils Absolute Auto 0.1 K/mm3 (0-0.3); Eosinophils Percent Auto 3.5 % (0-4.4); Hematocrit 26.2 % (42.0-52.0); Hemoglobin 7.6 g/dL (14.0-18.0); Lymphocytes Absolute Auto 0.38 K/mm3 (0.9-3.2); Lymphocytes Percent Auto 11.9 % (18.3-44.2); Mean Corpuscular Hemoglobin 24.6 pg (26-34); Mean Corpuscular Volume 84.8 fl (80-100); Mean Platelet Volume 9.9 fl (7.4-10.4); Monocytes Absolute Auto 0.3 K/mm3 (0.1-0.6); Monocytes Percent Auto 9.1 % (2.6-8.5); Neutrophils Absolute Auto 2.4 K/mm3 (1.3-6.7); Neutrophils Percent Auto 74.6 % (45.5-73.1); Platelet Count Result 186 k/mm3 (150-375); Red Blood Count 3.09 M/mm3 (4.6-6.20); Red Cell Distribution Width 17.8 % (11.5-14.5); White Blood Count 3.2 K/mm3 (4.5-10.0)
[2022-11-27 06:50] LABS: Albumin Level 3.5 g/dL (3.5-5.1); Anion Gap 6 mmol/L (8-16); Blood Urea Nitrogen 54 mg/dL (9-20); CRP 1.9 mg/dL (<1.0); Calcium 8.9 mg/dL (8.4-10.2); Carbon Dioxide 30 mmol/L (22-30); Chloride 102 mmol/L (98-107); Estimated CRCL calculation 48 ml/min; Estimated Glomerular Filt Rate 33; Glucose 107 mg/dL (65-110); Magnesium 2.1 mg/dL (1.6-2.3); Phosphorus 4.2 mg/dL (2.5-4.5); Potassium 4.5 mmol/L (3.4-5.0); Sodium 138 mmol/L (137-145)
[2022-11-27 07:33] LABS: Acanthocytes 1+ (NORMAL); Hypochromasia 1+ (NORMAL); Ovalocytes 1+ (NORMAL); Platelet Estimate Adequate (Adequate); Schistocytes None Seen (NORMAL)
[2022-11-27 08:09] LABS: Glucose Point of Care 106 mg/dl (65-105)
[2022-11-27] MEDS: UMECLIDINIUM/VILANTEROL 62.5-25 MCG ELLIPTA 1 PUFF INHALATION (08:31)
[2022-11-27] MEDS: FLUTICASONE PROP 110 MCG INHALER 12 GM (*SP) 1 PUFF INHALATION ×2 (08:32→20:26)
[2022-11-27] MEDS: FERROUS SULFATE 324 MG TABLET PO (10:22)
[2022-11-27] MEDS: ASPIRIN 81 MG ENTERIC TABLET PO (10:22)
[2022-11-27] MEDS: busPIRone HCL 5 MG TABLET 15 MG PO ×3 (10:22→17:13)
[2022-11-27] MEDS: FLUTICASONE PROPIONATE 0.05% NA SPR 16 GM BTL (*BKC) 1 SPRAY NASAL ×2 (10:22→20:47)
[2022-11-27] MEDS: APIXABAN 5 MG TABLET PO ×2 (10:22→20:46)
[2022-11-27] MEDS: ACIDOPHILUS/BULGARICUS CHEWABLE TABLET 2 TABLET PO ×2 (10:22→17:13)
[2022-11-27] MEDS: FUROSEMIDE 40 MG TABLET PO (10:22)
[2022-11-27] MEDS: ASCORBIC ACID 500 MG TABLET PO (10:22)
[2022-11-27] MEDS: SENNA/DOCUSATE SODIUM TABLET 1 TAB PO ×2 (10:22→17:13)
[2022-11-27] MEDS: ISOSORBIDE MONONITRATE 30 MG TAB.ER.24H PO (10:23)
[2022-11-27] MEDS: DOXYCYCLINE HYCLATE 100 MG TABLET PO ×2 (10:23→20:46)
[2022-11-27] MEDS: METOPROLOL TARTRATE 50 MG TAB PO ×2 (10:23→20:46)
[2022-11-27] MEDS: SACCHAROMYCES BOULARDII 250 MG CAPSULE PO (10:23)
[2022-11-27] MEDS: BETAMETHASONE/CLOTRIMAZOLE CR 15 GM TUBE 1 APPLIC TOPICAL (10:23)
[2022-11-27] MEDS: metOLazone 5 MG TABLET PO (10:23)
[2022-11-27] MEDS: LOSARTAN POTASSIUM 50 MG TABLET PO (10:23)
[2022-11-27] MEDS: PYRIDOXINE HCL 50 MG TABLET PO (10:23)
[2022-11-27] MEDS: FAMOTIDINE 20 MG TABLET PO ×2 (10:24→20:46)
[2022-11-27 11:49] LABS: Glucose Point of Care 128 mg/dl (65-105)
[2022-11-27 14:49] LABS: IFOB Positive Control Positive; Immunochemical Fecal Occult Bl Positive (N)
--- NOTE | 2022-11-27 14:58 | PM.IMPN ---
Progress Note: A&P Assessment and Plan (1) Left leg cellulitis: Code(s): L03.116 - Cellulitis of left lower limb Status: Acute Assessment and Plan: Evidence of yeast on exam. Appears he was started on doxycycline a few days prior to admission, but appearance worsened per patient. Treated with IV cefepime, metronidazole, vancomycin, started 11/23- 11/26. Transition to oral Doxycycline 100 mg PO BID for MRSA coverage (patient has CKD4 and unable to take Bactrim DS, Linezolid contraindicated due to TCA use, and would avoid clindamycin given risk for Cdiff) and add amoxicillin 500 mg PO Q8 hours x 7 days (day 2 of 7). Add osvaldo wraps/kaity hose for edema control. No available wound culture. continue wound care. 11/23 blood cultures negative to date Venous doppler LLE and PAUL negative (2) Hyperkalemia: Code(s): E87.5 - Hyperkalemia Status: Resolved Assessment and Plan: Repeat potassium level has improved. Continue losartan for now and monitor. Improved. (3) Diastolic heart failure: Qualifiers: Heart failure chronicity: chronic Qualified Code(s): I50.32 - Chronic diastolic (congestive) heart failure Code(s): I50.30 - Unspecified diastolic (congestive) heart failure Status: Chronic Assessment and Plan: Chronic, does not appear to be in acute exacerbation. Improving left leg edema with antibiotics. Continue furosemide and metolazone. elevate LLE on pillows. (4) Insulin dependent type 2 diabetes mellitus: Code(s): E11.9 - Type 2 diabetes mellitus without complications; Z79.4 - intermodal truck driver (current) use of insulin Status: Chronic Assessment and Plan: Continue basal insulin. Initiate sliding scale insulin, Accu-Cheks, and hypoglycemic protocol. hemoglobin A1c 6.9%. Glucose 68 this morning 11/25. He reports feeling shaky. Decrease lantus to 20 units daily. Trulicity unavailable on formulary and cannot be brought from home. Resume at discharge. Glucose 78-133. Stopped aspart 10 units with meals and cover with sliding scale while inpatient. (5) Chronic kidney disease, stage IV (severe): Code(s): N18.4 - Chronic kidney disease, stage 4 (severe) Status: Chronic Assessment and Plan: Sees Dr. Caldwell; recent labs note a creatinine of 2.0 for on 11/08/2022 and 2.52 on 11/15/2022. Stable. Renal function at baseline (6) Chronic anemia: Code(s): D64.9 - Anemia, unspecified Status: Chronic Assessment and Plan: Medical records from [facility] show Hgb 7-8.4 since April 2022. Continue iron supplement and vitamin C. B12 and folic acid within normal limits. Hemoccult stool positive, however, patient reports constipation, straining and recent enema. Repeat FOBT x1. Hgb stable 7.6 Patient appears to have been taking Eliquis, aspirin and plavix concurrently since at least April. Last cardiac cath 05/2022 without intervention and notable patent grafts. Stopped plavix. continued Eliquis and aspirin 81 mg. Monitor for acute bleeding. (7) Paroxysmal atrial fibrillation: Code(s): I48.0 - Paroxysmal atrial fibrillation Status: Chronic Assessment and Plan: HR regular and appears to be in a sinus rhythm. Continue metoprolol and Eliquis. (8) Chronic anticoagulation: Code(s): Z79.01 - intermodal truck driver (current) use of anticoagulants Status: Chronic Assessment and Plan: Continue apixaban for stroke prophylaxis for afib. (9) Hypertension: Qualifiers: Hypertension type: primary hypertension Qualified Code(s): I10 - Essential (primary) hypertension Code(s): I10 - Essential (primary) hypertension Status: Chronic Assessment and Plan: Blood pressures stable. Continue furosemide, hydralazine, isosorbide dinitrate, losartan and metoprolol at home doses as BP allows. (10) Peripheral vascular disease: Code(s): I73.9 - Peripheral vascular d
[2022-11-27 16:44] LABS: Glucose Point of Care 133 mg/dl (65-105)
[2022-11-27] MEDS: INSULIN GLARGINE (*BKC) 100 UNITS/ML 10 UNITS SUB-Q (17:13)
[2022-11-27] MEDS: ATORVASTATIN 40 MG TABLET PO (20:46)
[2022-11-27] MEDS: AMITRIPTYLINE HCL 25 MG TABLET 50 MG PO (20:46)
[2022-11-27] MEDS: traZODone HCL 50 MG TABLET 100 MG PO (20:46)
[2022-11-27 21:19] LABS: Glucose Point of Care 139 mg/dl (65-105)
[2022-11-28] VITALS (7 sets, daily range): BP systolic 131–148; BP diastolic 67–75; PULSE 58–85; RESP 14–18; TEMP 36.3–36.6; O2SAT 95–97
[2022-11-28] MEDS: traMADol HCL (*CRX) 50 MG TABLET PO ×3 (01:34→21:09)
[2022-11-28] MEDS: AMOXICILLIN 500 MG CAPSULE PO ×3 (06:20→20:59)
[2022-11-28] MEDS: LEVOTHYROXINE SODIUM 100 MCG TABLET PO (06:20)
[2022-11-28] MEDS: METOCLOPRAMIDE HCL 5 MG TABLET PO ×3 (06:20→16:55)
[2022-11-28] MEDS: hydrALAZINE HCL 25 MG TABLET 75 MG PO ×3 (06:20→20:59)
[2022-11-28] MEDS: GABAPENTIN 100 MG CAPSULE PO ×3 (06:20→20:59)
[2022-11-28 06:54] LABS: Hematocrit 25.5 % (42.0-52.0); Hemoglobin 7.6 g/dL (14.0-18.0); Mean Corpuscular HGB Conc 29.8 g/dl (32-36); Mean Corpuscular Hemoglobin 25.3 pg (26-34); Mean Platelet Volume 9.9 fl (7.4-10.4); Platelet Count Result 188 k/mm3 (150-375); Red Cell Distribution Width 17.8 % (11.5-14.5); White Blood Count 3.1 K/mm3 (4.5-10.0)
[2022-11-28] MEDS: FERROUS SULFATE 324 MG TABLET PO (08:24)
[2022-11-28] MEDS: APIXABAN 5 MG TABLET PO ×2 (08:25→20:59)
[2022-11-28] MEDS: busPIRone HCL 5 MG TABLET 15 MG PO ×3 (08:25→16:56)
[2022-11-28] MEDS: ASPIRIN 81 MG ENTERIC TABLET PO (08:25)
[2022-11-28] MEDS: ASCORBIC ACID 500 MG TABLET PO (08:25)
[2022-11-28] MEDS: ACIDOPHILUS/BULGARICUS CHEWABLE TABLET 2 TABLET PO ×2 (08:25→16:56)
[2022-11-28] MEDS: ISOSORBIDE MONONITRATE 30 MG TAB.ER.24H PO (08:26)
[2022-11-28] MEDS: FUROSEMIDE 40 MG TABLET PO (08:26)
[2022-11-28] MEDS: SENNA/DOCUSATE SODIUM TABLET 1 TAB PO ×2 (08:26→16:56)
[2022-11-28] MEDS: DOXYCYCLINE HYCLATE 100 MG TABLET PO ×2 (08:26→21:00)
[2022-11-28] MEDS: LOSARTAN POTASSIUM 50 MG TABLET PO (08:26)
[2022-11-28] MEDS: FAMOTIDINE 20 MG TABLET PO ×2 (08:26→20:59)
[2022-11-28] MEDS: PYRIDOXINE HCL 50 MG TABLET PO (08:27)
[2022-11-28] MEDS: METOPROLOL TARTRATE 50 MG TAB PO ×2 (08:27→20:59)
[2022-11-28] MEDS: metOLazone 5 MG TABLET PO (08:27)
[2022-11-28] MEDS: SACCHAROMYCES BOULARDII 250 MG CAPSULE PO (08:28)
[2022-11-28 08:32] LABS: Glucose Point of Care 111 mg/dl (65-105)
[2022-11-28] MEDS: UMECLIDINIUM/VILANTEROL 62.5-25 MCG ELLIPTA 1 PUFF INHALATION (08:57)
[2022-11-28] MEDS: FLUTICASONE PROP 110 MCG INHALER 12 GM (*SP) 1 PUFF INHALATION ×2 (09:42→21:27)
[2022-11-28] MEDS: BETAMETHASONE/CLOTRIMAZOLE CR 15 GM TUBE 1 APPLIC TOPICAL (11:37)
[2022-11-28 11:40] LABS: Glucose Point of Care 141 mg/dl (65-105)
--- NOTE | 2022-11-28 12:35 | P.PNIM_ITS ---
Progress Note: A&P Assessment and Plan (1) Left leg cellulitis: Code(s): L03.116 - Cellulitis of left lower limb Status: Acute Assessment and Plan: Evidence of yeast on exam. Appears he was started on doxycycline a few days prior to admission, but appearance worsened per patient. * Treated with IV cefepime, metronidazole, vancomycin, started 11/23- 11/26. * Transition to oral Doxycycline 100 mg PO BID for MRSA coverage (patient has CKD4 and unable to take Bactrim DS, Linezolid contraindicated due to TCA use, and would avoid clindamycin given risk for C. diff) and add amoxicillin 500 mg PO Q8 hours x 7 days (day 2 of 7). * Add osvaldo wraps/kaity hose for edema control. * No available wound culture. * continue wound care. * 11/23 blood cultures negative to date * Venous doppler LLE and PAUL negative (2) Hyperkalemia: Code(s): E87.5 - Hyperkalemia Status: Resolved Assessment and Plan: Repeat potassium level has improved. Continue losartan for now and monitor. Improved. (3) Diastolic heart failure: Qualifiers: Heart failure chronicity: chronic Qualified Code(s): I50.32 - Chronic diastolic (congestive) heart failure Code(s): I50.30 - Unspecified diastolic (congestive) heart failure Status: Chronic Assessment and Plan: Chronic, does not appear to be in acute exacerbation. * Improving left leg edema with antibiotics. * Continue furosemide and metolazone. * Elevate LLE on pillows. (4) Insulin dependent type 2 diabetes mellitus: Code(s): E11.9 - Type 2 diabetes mellitus without complications; Z79.4 - superintendent terminal (current) use of insulin Status: Chronic Assessment and Plan: Continue basal insulin. Initiate sliding scale insulin, Accu-Cheks, and hypoglycemic protocol. * Hemoglobin A1c 6.9%. * Glucose 68 this morning 11/25. He reports feeling shaky. Decrease lantus to 20 units daily. * Trulicity unavailable on formulary and cannot be brought from home. Resume at discharge. * Glucose 78-133. Stopped aspart 10 units with meals and cover with sliding scale while inpatient. (5) Chronic kidney disease, stage IV (severe): Code(s): N18.4 - Chronic kidney disease, stage 4 (severe) Status: Chronic Assessment and Plan: Sees Dr. Caldwell; recent labs note a creatinine of 2.0 for on 11/08/2022 and 2.52 on 11/15/2022. Stable. Renal function at baseline (6) Chronic anemia: Code(s): D64.9 - Anemia, unspecified Status: Chronic Assessment and Plan: Medical records from [facility] show Hgb 7-8.4 since April 2022. * Continue iron supplement and vitamin C. * B12 and folic acid within normal limits. * Hemoccult stool positive, however, patient reports constipation, straining and recent enema. * Repeat FOBT x1. Hgb stable 7.6 * Patient appears to have been taking Eliquis, aspirin and plavix concurrently since at least April. Last cardiac cath 05/2022 without intervention and notable patent grafts. Stopped plavix. continued Eliquis and aspirin 81 mg. Monitor for acute bleeding. (7) Paroxysmal atrial fibrillation: Code(s): I48.0 - Paroxysmal atrial fibrillation Status: Chronic Assessment and Plan: HR regular and appears to be in a sinus rhythm. Continue metoprolol and Eliquis. (8) Chronic anticoagulation: Code(s): Z79.01 - superintendent terminal (
--- NOTE | 2022-11-28 12:35 | PM.IMPN ---
Progress Note: A&P Assessment and Plan (1) Left leg cellulitis: Code(s): L03.116 - Cellulitis of left lower limb Status: Acute Assessment and Plan: Evidence of yeast on exam. Appears he was started on doxycycline a few days prior to admission, but appearance worsened per patient. Treated with IV cefepime, metronidazole, vancomycin, started 11/23- 11/26. Transition to oral Doxycycline 100 mg PO BID for MRSA coverage (patient has CKD4 and unable to take Bactrim DS, Linezolid contraindicated due to TCA use, and would avoid clindamycin given risk for C. diff) and add amoxicillin 500 mg PO Q8 hours x 7 days (day 2 of 7). Add osvaldo wraps/kaity hose for edema control. No available wound culture. continue wound care. 11/23 blood cultures negative to date Venous doppler LLE and PAUL negative (2) Hyperkalemia: Code(s): E87.5 - Hyperkalemia Status: Resolved Assessment and Plan: Repeat potassium level has improved. Continue losartan for now and monitor. Improved. (3) Diastolic heart failure: Qualifiers: Heart failure chronicity: chronic Qualified Code(s): I50.32 - Chronic diastolic (congestive) heart failure Code(s): I50.30 - Unspecified diastolic (congestive) heart failure Status: Chronic Assessment and Plan: Chronic, does not appear to be in acute exacerbation. Improving left leg edema with antibiotics. Continue furosemide and metolazone. Elevate LLE on pillows. (4) Insulin dependent type 2 diabetes mellitus: Code(s): E11.9 - Type 2 diabetes mellitus without complications; Z79.4 - nursing home (current) use of insulin Status: Chronic Assessment and Plan: Continue basal insulin. Initiate sliding scale insulin, Accu-Cheks, and hypoglycemic protocol. Hemoglobin A1c 6.9%. Glucose 68 this morning 11/25. He reports feeling shaky. Decrease lantus to 20 units daily. Trulicity unavailable on formulary and cannot be brought from home. Resume at discharge. Glucose 78-133. Stopped aspart 10 units with meals and cover with sliding scale while inpatient. (5) Chronic kidney disease, stage IV (severe): Code(s): N18.4 - Chronic kidney disease, stage 4 (severe) Status: Chronic Assessment and Plan: Sees Dr. Caldwell; recent labs note a creatinine of 2.0 for on 11/08/2022 and 2.52 on 11/15/2022. Stable. Renal function at baseline (6) Chronic anemia: Code(s): D64.9 - Anemia, unspecified Status: Chronic Assessment and Plan: Medical records from [facility] show Hgb 7-8.4 since April 2022. Continue iron supplement and vitamin C. B12 and folic acid within normal limits. Hemoccult stool positive, however, patient reports constipation, straining and recent enema. Repeat FOBT x1. Hgb stable 7.6 Patient appears to have been taking Eliquis, aspirin and plavix concurrently since at least April. Last cardiac cath 05/2022 without intervention and notable patent grafts. Stopped plavix. continued Eliquis and aspirin 81 mg. Monitor for acute bleeding. (7) Paroxysmal atrial fibrillation: Code(s): I48.0 - Paroxysmal atrial fibrillation Status: Chronic Assessment and Plan: HR regular and appears to be in a sinus rhythm. Continue metoprolol and Eliquis. 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 (9) Hypertension: Qualifiers: Hypertension type: primary hypertension Qualified Code(s): I10 - Essential (primary) hypertension Code(s): I10 - Essential (primary) hypertension Status: Chronic Assessment and Plan: Blood pressures stable. Continue furosemide, hydralazine, isosorbide dinitrate, losartan and metoprolol at home doses as BP al
--- NOTE | 2022-11-28 16:45 | PC.NURSE ---
Pt c/o swelling to penis and testicles stating he cannot use the urinal because it does not fit . RN assessed pt, noted significant swelling to genital area. Pt reports this happens each time he takes Lasix, pt [facility] him it is because the fluid runs down and collects there. Pt is still urinating as normal. Called [facility] and received orders to hold Lasix and elevate scrotum.
[2022-11-28 17:04] LABS: Glucose Point of Care 137 mg/dl (65-105)
[2022-11-28 20:43] LABS: Glucose Point of Care 174 mg/dl (65-105)
[2022-11-28] MEDS: traZODone HCL 50 MG TABLET 100 MG PO (20:58)
[2022-11-28] MEDS: AMITRIPTYLINE HCL 25 MG TABLET 50 MG PO (20:59)
[2022-11-28] MEDS: ATORVASTATIN 40 MG TABLET PO (20:59)
[2022-11-28] MEDS: INSULIN GLARGINE (*BKC) 100 UNITS/ML 10 UNITS SUB-Q (21:10)
[2022-11-29] MEDS: AMOXICILLIN 500 MG CAPSULE PO ×2 (04:55→13:14)
[2022-11-29] MEDS: GABAPENTIN 100 MG CAPSULE PO ×2 (04:55→13:14)
[2022-11-29 04:56] VITALS: BP 143/76; PULSE 55; RESP 16; TEMP 36.6; O2SAT 96
[2022-11-29] MEDS: hydrALAZINE HCL 25 MG TABLET 75 MG PO ×2 (04:56→13:14)
[2022-11-29] MEDS: LEVOTHYROXINE SODIUM 100 MCG TABLET PO (04:56)
[2022-11-29] MEDS: METOCLOPRAMIDE HCL 5 MG TABLET PO ×3 (04:56→16:47)
[2022-11-29 06:02] LABS: Eosinophils Absolute Auto 0.1 K/mm3 (0-0.3); Hemoglobin 7.1 g/dL (14.0-18.0); Immature Granulocyte Absolute 0.01 K/mm3 (0.00-0.031); Immature Granulocyte Percent A 0.3 % (0-0.5); Lymphocytes Absolute Auto 0.33 K/mm3 (0.9-3.2); Lymphocytes Percent Auto 10.9 % (18.3-44.2); Mean Corpuscular HGB Conc 29.6 g/dl (32-36); Mean Corpuscular Hemoglobin 24.6 pg (26-34); Mean Platelet Volume 9.6 fl (7.4-10.4); Monocytes Absolute Auto 0.4 K/mm3 (0.1-0.6); Monocytes Percent Auto 11.5 % (2.6-8.5); Neutrophils Absolute Auto 2.2 K/mm3 (1.3-6.7); Neutrophils Percent Auto 73.3 % (45.5-73.1); Platelet Count Result 163 k/mm3 (150-375); Red Blood Count 2.89 M/mm3 (4.6-6.20); Red Cell Distribution Width 17.5 % (11.5-14.5)
[2022-11-29 06:14] LABS: Alanine Aminotransferase 15 U/L (6-50); Albumin Level 3.3 g/dL (3.5-5.1); Alkaline Phosphatase 178 U/L (38-126); Anion Gap 3 mmol/L (8-16); Aspartate Amino Transferase 22 U/L (17-59); Bilirubin,Total 0.7 mg/dL (0.2-1.3); Blood Urea Nitrogen 47 mg/dL (9-20); Calcium 8.6 mg/dL (8.4-10.2); Carbon Dioxide 33 mmol/L (22-30); Chloride 102 mmol/L (98-107); Estimated CRCL calculation 46 ml/min; Estimated Glomerular Filt Rate 33; Glucose 132 mg/dL (65-110); Potassium 4.3 mmol/L (3.4-5.0); Sodium 138 mmol/L (137-145)
[2022-11-29 06:34] LABS: Helmet Cells 1+ (NORMAL); Hypochromasia 2+ (NORMAL); Ovalocytes 2+ (NORMAL); Platelet Estimate Adequate (Adequate); Poikilocytosis 1+ (NORMAL); Tear Drop Cells 1+ (NORMAL)
[2022-11-29 06:35] LABS: Acanthocytes 1+ (NORMAL); Schistocytes None Seen (NORMAL)
--- NOTE | 2022-11-29 07:39 | P.CDI_ITS ---
CDI Query Clarification Request Cellulitis is not related to diabetes <Shivani Pham, CASE ADVOCATE - Last Filed: 12/03/22 18:55> Clarified Diagnosis Clarified Diagnosis: Please clarify if there is a cause and effect relationship between cellulitis and Diabetes Mellitus. * Cellulitis is related to Diabetes Mellitus. * Cellulitis is not related to Diabetes Mellitus * Unknown if cellulitis is related to Diabetes Mellitus. <Sarah Eastman RN - Last Filed: 11/29/22 07:43>
--- NOTE | 2022-11-29 07:39 | WPDCDIQUERY2 ---
CDI Query Clarification Request Cellulitis is not related to diabetes <Shivani Pham, SECRETARY BOOK KEEPER - Last Filed: 12/03/22 18:55> Clarified Diagnosis Clarified Diagnosis: Please clarify if there is a cause and effect relationship between cellulitis and Diabetes Mellitus. Cellulitis is related to Diabetes Mellitus. Cellulitis is not related to Diabetes Mellitus Unknown if cellulitis is related to Diabetes Mellitus. <Sarah Eastman RN - Last Filed: 11/29/22 07:43>
[2022-11-29] MEDS: FLUTICASONE PROP 110 MCG INHALER 12 GM (*SP) 1 PUFF INHALATION (08:14)
[2022-11-29] MEDS: UMECLIDINIUM/VILANTEROL 62.5-25 MCG ELLIPTA 1 PUFF INHALATION (08:14)
[2022-11-29 08:16] VITALS: O2SAT 93
[2022-11-29 08:20] LABS: Glucose Point of Care 134 mg/dl (65-105)
[2022-11-29] MEDS: ACIDOPHILUS/BULGARICUS CHEWABLE TABLET 2 TABLET PO ×2 (08:59→16:46)
[2022-11-29] MEDS: FERROUS SULFATE 324 MG TABLET PO (08:59)
[2022-11-29] MEDS: APIXABAN 5 MG TABLET PO (09:00)
[2022-11-29] MEDS: ASCORBIC ACID 500 MG TABLET PO (09:00)
[2022-11-29] MEDS: ASPIRIN 81 MG ENTERIC TABLET PO (09:00)
[2022-11-29] MEDS: busPIRone HCL 5 MG TABLET 15 MG PO ×3 (09:01→16:46)
[2022-11-29] MEDS: SENNA/DOCUSATE SODIUM TABLET 1 TAB PO ×2 (09:02→16:47)
[2022-11-29] MEDS: ISOSORBIDE MONONITRATE 30 MG TAB.ER.24H PO (09:03)
[2022-11-29] MEDS: DOXYCYCLINE HYCLATE 100 MG TABLET PO (09:03)
[2022-11-29] MEDS: FAMOTIDINE 20 MG TABLET PO (09:03)
[2022-11-29] MEDS: FLUTICASONE PROPIONATE 0.05% NA SPR 16 GM BTL (*BKC) 1 SPRAY NASAL (09:04)
[2022-11-29] MEDS: LOSARTAN POTASSIUM 50 MG TABLET PO (09:04)
[2022-11-29] MEDS: metOLazone 5 MG TABLET PO (09:05)
[2022-11-29] MEDS: PYRIDOXINE HCL 50 MG TABLET PO (09:06)
[2022-11-29] MEDS: traMADol HCL (*CRX) 50 MG TABLET PO ×2 (09:06→16:45)
[2022-11-29] MEDS: SACCHAROMYCES BOULARDII 250 MG CAPSULE PO (09:06)
[2022-11-29 09:08] VITALS: PULSE 66
[2022-11-29] MEDS: METOPROLOL TARTRATE 50 MG TAB PO (09:08)
[2022-11-29 11:52] LABS: Glucose Point of Care 158 mg/dl (65-105)
[2022-11-29] MEDS: BETAMETHASONE/CLOTRIMAZOLE CR 15 GM TUBE 1 APPLIC TOPICAL (12:08)
--- NOTE | 2022-11-29 12:12 | PM.DS ---
DS: Admitting Diagnosis Discharge Date 11/29/2022 Admitting Diagnosis Cellulitis of left lower limb Hyperkalemia Chronic, combined systolic and diastolic CHF not in acute exacerbation Insulin dependent type 2 diabetes mellitus Chronic kidney disease, stage IV (severe) Chronic anemia Paroxysmal atrial fibrillation on chronic anticoagulation? Essential (primary) hypertension Peripheral vascular disease Chronic obstructive pulmonary disease, not in acute exacerbation DS: Discharge Diagnosis Discharge Diagnosis (1) Left leg cellulitis: Code(s): L03.116 - Cellulitis of left lower limb Status: Acute Assessment and Plan: Evidence of yeast on exam. Appears he was started on doxycycline a few days prior to admission, but appearance worsened per patient. Treated with IV cefepime, metronidazole, vancomycin, started 11/23- 11/26. 11/27 Transitioned to oral Doxycycline 100 mg PO BID for MRSA coverage (patient has CKD4 and unable to take Bactrim DS, Linezolid contraindicated due to TCA use, and would avoid clindamycin given risk for C. diff) and add amoxicillin 500 mg PO Q8 hours x 7 days. Apply osvaldo wraps/kaity hose for edema control. No available wound culture. continue wound care. 11/23 blood cultures negative to date Venous doppler LLE and PAUL negative (2) Hyperkalemia: Code(s): E87.5 - Hyperkalemia Status: Resolved Assessment and Plan: K 5.8 on admission. H/O CKD stage 4 on losartan. Repeat potassium level has improved. Continue losartan for now and monitor. K 4.3 at discharge. (3) Insulin dependent type 2 diabetes mellitus: Code(s): E11.9 - Type 2 diabetes mellitus without complications; Z79.4 - nursing home (current) use of insulin Status: Chronic Assessment and Plan: Continue basal insulin. Initiate sliding scale insulin, Accu-Cheks, and hypoglycemic protocol. Hemoglobin A1c 6.9%. Glucose 68 morning of 11/25. He reports feeling shaky. Glucose remained low to mid 100s. Decreased lantus 10 units daily. Trulicity unavailable on formulary and cannot be brought from home. Resume at discharge. Glucose 78-133. Stopped aspart 10 units with meals and covered with sliding scale. PCP to continue adjusting based on diet changes and glucose levels upon discharge. (4) Chronic kidney disease, stage IV (severe): Code(s): N18.4 - Chronic kidney disease, stage 4 (severe) Status: Chronic Assessment and Plan: Sees Dr. Caldwell; recent labs note a creatinine of 2.0 for on 11/08/2022 and 2.52 on 11/15/2022. Stable. Renal function at baseline (5) Chronic anemia: Code(s): D64.9 - Anemia, unspecified Status: Chronic Assessment and Plan: Medical records from [facility] show Hgb 7-8.4 since April 2022. Continue iron supplement and vitamin C. B12 and folic acid within normal limits. Hemoccult stool positive, however, patient reports constipation, straining and recent enema. Hgb stable 7.6 Patient appears to have been taking Eliquis, aspirin and plavix concurrently since at least April. Last cardiac cath 05/2022 without intervention and notable patent grafts. Stopped plavix. continued Eliquis and aspirin 81 mg. Monitor for acute bleeding. (6) Paroxysmal atrial fibrillation: Code(s): I48.0 - Paroxysmal atrial fibrillation Status: Chronic Assessment and Plan: HR regular and appears to be in a sinus rhythm. Continue metoprolol and Eliquis. (7) Chronic anticoagulation: Code(s): Z79.01 - nursing home (current) use of anticoagulants Status: Chronic Assessment and Plan: Continue apixaban for stroke prophylaxis for afib. (8) Hypertension: Qualifiers: Hypertension type: primary hypertension Qualified Code(s): I10 - Essential (primary) hypertension Code(s): I10 - Essential (primary) hypertension Status: Chronic Assessment and Plan: Blood pressures stable.
[2022-11-29 14:00] VITALS: BP 147/73; PULSE 55; RESP 16; TEMP 36.5; O2SAT 97
[2022-11-29 14:51] LABS: EDCOVIDSCREEN Negative (Negative)
[2022-11-29 16:50] LABS: Glucose Point of Care 145 mg/dl (65-105)
[2022-11-29] MEDS: INSULIN GLARGINE (*BKC) 100 UNITS/ML 10 UNITS SUB-Q (18:19)
--- NOTE | 2022-11-29 18:42 | PC.NURSE ---
On 11/29/22, the License pending RN Teresa, provided care and completed [employer] documentation on this patient. I have reviewed Teresa's laboratory coordinator and agree with the findings.
== END 2022-11-29 19:45 | DRG 603 ==
LOC: ANHED 09:05 → ANH2MED 09:37
PROVIDERS: Internal Medicine Critical Care Medicine; Physician Assistant; Admitting Provider Chiropractor; Emergency Provider Emergency Medicine; PCP Internal Medicine; Visit Provider Nurse Practitioner Family
DX: L03.116 Cellulitis of left lower limb (principal); I13.0 Hypertensive heart and chronic kidney disease with heart failure and stage 1 through stage 4 chronic kidney disease, or unspecified chronic kidney disease; I50.42 Chronic combined systolic (congestive) and diastolic (congestive) heart failure; N18.4 Chronic kidney disease, stage 4 (severe); J96.10 Chronic respiratory failure, unspecified whether with hypoxia or hypercapnia; L97.828 Non-pressure chronic ulcer of other part of left lower leg with other specified severity; I48.0 Paroxysmal atrial fibrillation; I25.10 Atherosclerotic heart disease of native coronary artery without angina pectoris; J44.9 Chronic obstructive pulmonary disease, unspecified; E87.5 Hyperkalemia; E11.22 Type 2 diabetes mellitus with diabetic chronic kidney disease; E11.42 Type 2 diabetes mellitus with diabetic polyneuropathy; E11.51 Type 2 diabetes mellitus with diabetic peripheral angiopathy without gangrene; E03.9 Hypothyroidism, unspecified; E78.5 Hyperlipidemia, unspecified; D64.9 Anemia, unspecified; M48.00 Spinal stenosis, site unspecified; K21.9 Gastro-esophageal reflux disease without esophagitis; K59.00 Constipation, unspecified; B37.2 Candidiasis of skin and nail; F41.9 Anxiety disorder, unspecified; F32.A Depression, unspecified; Z20.822 Contact with and (suspected) exposure to COVID-19; Z66 Do not resuscitate; Z95.1 Presence of aortocoronary bypass graft; Z79.4 Long term (current) use of insulin; Z79.82 Long term (current) use of aspirin; Z79.01 Long term (current) use of anticoagulants; Z89.511 Acquired absence of right leg below knee; Z86.73 Personal history of transient ischemic attack (TIA), and cerebral infarction without residual deficits; Z87.891 Personal history of nicotine dependence; Z99.81 Dependence on supplemental oxygen
CPT/HCPCS: 36415; 36600; 70450; 80048; 80053; 80069; 82140; 82274; 82375; 82607; 82728; 82746; 82805; 82948; 83036; 83050; 83540; 83550; 83605; 83735; 84145; 84439; 84443; 84480; 85025; 85027; 85046; 85610; 85652; 85730; 86140; 87040; 87426; 93922; 93971; 94640; 96365; 96366; 96367; 97110; 97161; 97165; 97530; 99285; A9270; C9803; G0378; J0692; J1815; J3370

== ENCOUNTER 2022-12-15 04:52 | Inpatient (IN) | payer MEDICARE, MEDICAID, SELFPAY ==
[2022-12-15] VITALS (17 sets, daily range): BP systolic 146–185; BP diastolic 65–98; PULSE 59–86; RESP 16–27; TEMP 36.3–37.1; O2SAT 91–100; BMI 38.8
--- NOTE | 2022-12-15 | ECHO_ITS ---
Patient Info Name: Wilfredo Bose Age: 57 years : 1965 Gender: Male Ht: 70 in Wt: 300 lbs BSA: 2.66 m2 HR: 67 bpm BP: 152 / 98 mmHg Technical Quality: Good Exam Date: 12/15/2022 2:24 PM Exam Location: [facility] Patient Status: Inpatient Admit Date: 12/15/2022 Staff Ordering Physician: Leonora Robin MD Head Esthetician: Maria R Zuniga RDCS Attending Provider: Levy Downs MD Exam Type: CA echo dop color flow w con Study Info Indications - pulmonary edema Complete two-dimensional, color flow and Doppler transthoracic echocardiogram is performed with contrast to opacify the left ventricle and to improve the deliniation of the left ventricle endocardial borders. Contrast/Agitated Saline Contrast/Ag. Saline: Definity Amount: 2.00 ml Administered By: Maria R Zuniga RDCS Existing IV Access: Yes IV Access Condition: patent with no signs of infiltration Summary 1. Left ventricular chamber dimension is normal. 2. Left ventricular systolic function is normal, estimated at 50-55%. 3. There is mildly increased left ventricular wall thickness. 4. Right ventricular chamber dimension is mildly enlarged. 5. Right ventricular systolic function is reduced. 6. Left atrial chamber dimension is mildly enlarged. 7. Right atrial chamber dimension is mildly enlarged. 8. There is mild tricuspid valve regurgitation. 9. Dilated inferior vena cava with <50% collapse upon inspiration consistent with elevated right atrial pressure, 15 mmHg. Left Ventricle Left ventricular chamber dimension is normal. Left ventricular systolic function is normal, estimated at 50-55%. There is mildly increased left ventricular wall thickness. Right Ventricle Right ventricular chamber dimension is mildly enlarged. Right ventricular systolic function is reduced. Left Atria Left atrial chamber dimension is mildly enlarged. Right Atria Right atrial chamber dimension is mildly enlarged. Atrial Septum Intact interatrial septum visualized by color flow imaging. Aortic Valve The aortic valve is probable trileaflet. There is no aortic valve stenosis. There is no aortic valve regurgitation. Pulmonic Valve The pulmonic valve is not well visualized. Mitral Valve There is trace mitral valve regurgitation. Tricuspid Valve There is mild tricuspid valve regurgitation. Pericardium/Pleural There is no pericardial effusion. Inferior Vena Cava Dilated inferior vena cava with <50% collapse upon inspiration consistent with elevated right atrial pressure, 15 mmHg. Aorta The aortic root size at the sinus of Valsalva is normal. Left Ventricular Outflow Tract Name Value Normal LVOT 2D LVOT Diameter 2.00 cm LVOT Doppler LVOT Peak Gradient 6 mmHg LVOT Mean Gradient 2 mmHg LVOT VTI 22.24 cm LVOT VTI/AV VTI Ratio 0.87 LVOT Stroke Volume 69.86 ml LVOT CO 4.57 l/min LVOT CI 1.72 L/min/m2 Pulmonic Valve Name
--- NOTE | ~2022-12-15 | XR_ITS ---
EXAMINATION: XR_[id number]_CR DATE: 01/05/2023 15:47 INDICATION: Right pleural effusion status post thoracentesis. TECHNIQUE: A single frontal view of the chest was obtained on 2 radiographs. COMPARISON: Chest single view 01/04/2023, chest CT 12/19/2022 FINDINGS: There is a small loculated right pleural effusion. There are airspace opacities in right mi d and lower lung zones. No pneumothorax. Cardiomegaly is noted. Median sternotomy wires and mediastin al surgical clips are seen, likely from prior coronary artery bypass grafting. A right internal jugul ar central venous catheter is seen with tip in the right atrium. There is electronic implant in left anterior chest wall. IMPRESSION: 1. Small loculated right pleural effusion with improvement status post thoracentesis. 2. Airspace opacities in right mid and lower lung zones, consistent with atelectasis versus pneumonia . 3. Cardiomegaly. Reviewed, dictated and finalized at location A. IMPRESSION: 1. Small loculated right pleural effusion with improvement status post thoracen tesis. 2. Airspace opacities in right mid and lower lung zones, consistent with atelec tasis versus pneumonia. 3. Cardiomegaly.
--- NOTE | ~2022-12-15 | XR_ITS ---
EXAMINATION: XR chest 1V portable DATE: 01/16/2023 13:20 INDICATION: Right pleural effusion. Hypoxia. TECHNIQUE: A single frontal view of the chest was obtained. COMPARISON: Chest single view 01/13/2023, CT abdomen and pelvis 01/13/2023 FINDINGS: Patient is rotated to his left. There are airspace opacities in all right lung zones with a perihilar and basilar predominance. There is a diffuse interstitial pattern in left lung. There is a moderate-sized right pleural effusion. No pneumothorax. Cardiomegaly is noted. A right internal jugu lar central venous catheter is seen with tip in the superior vena cava. Median sternotomy wires are n oted. There is an electronic implant in left anterior chest wall. IMPRESSION: 1. Moderate-sized right pleural effusion with improvement from 01/13/2023. 2. Diffuse lung disease, consistent with pulmonary edema and right-sided atelectasis versus pneumonia . 3. Cardiomegaly. Reviewed, dictated and finalized at location A. IMPRESSION: 1. Moderate-sized right pleural effusion with improvement from 01/13/2023. 2. Diffuse lung disease, consistent with pulmonary edema and right-sided atelec tasis versus pneumonia. 3. Cardiomegaly.
--- NOTE | ~2022-12-15 | XR_ITS ---
EXAM: XR foot LT min 3V DATE: 01/11/2023 18:39 HISTORY: injury UNSPECIFIED . COMPARISON: None available. FINDINGS: Normal mineralization. No fracture or dislocation. No lytic or blastic lesion. Mild degene rative changes at the first MTP joint, tibiotalar joint, and midfoot. Diffuse vascular calcification. Plantar enthesopathy. No erosion or periosteal change. Soft tissues within normal limits. IMPRESSION: No acute osseous finding in the left foot. Reviewed, dictated and finalized at location K.
--- NOTE | ~2022-12-15 | XR_ITS ---
Portable chest x-ray Comparison: 01/03/2023 Clinical History: Shortness of breath Findings: Right-sided central venous line is unchanged. Small to moderate right pleural effusion is present. There is mild pulmonary edema pattern, right lung worse than left. Cardiomediastinal silhou ette is stable, with monitoring device. Bones and soft tissues are unremarkable. Impression: [id number] right pleural effusion with mild pulmonary edema pattern, especially worse in the r ight lung. Stable cardiac monitoring device and support line. Reviewed, dictated and finalized at location . Impression: Bhjaq-ld-tzibezms right pleural effusion with mild pulmonary edema pattern, barbi ecially worse in the right lung. Stable cardiac monitoring device and support line.
--- NOTE | ~2022-12-15 | XR_ITS ---
EXAMINATION: XR chest 1V portable INDICATION: Shortness of breath TECHNIQUE: Portable AP chest at 0824 hours COMPARISON: 01/05/2023 FINDINGS: A large bore right internal jugular catheter ends with its tip in the right atrium. There a re increasing opacities of the right lung base. Cardiomegaly is noted. There is a small right pleural effusion. No pneumothorax is identified. Median sternotomy wires are consistent with prior cardiac s urgery. IMPRESSION: 1. Increasing opacities of the right lung base, consistent with atelectasis and/or pneumonia and/or p leural effusion. 2. Cardiomegaly. Reviewed, dictated and finalized at location A. IMPRESSION: 1. Increasing opacities of the right lung base, consistent with atelectasis and /or pneumonia and/or pleural effusion. 2. Cardiomegaly.
--- NOTE | ~2022-12-15 | XR_ITS ---
EXAMINATION: XR chest port-a-cath/central DATE: 12/30/2022 16:18 INDICATION: Dialysis catheter placement. TECHNIQUE: A single frontal view of the chest was obtained. COMPARISON: Chest single view at 6:42 AM, chest CT 12/19/2022 FINDINGS: There are airspace opacities in the right lung with a mid and lower lung zone predominance. There are mild airspace opacities in left mid and lower lung zones. There is a small right pleural e ffusion. No pneumothorax. Cardiomegaly is noted. Median sternotomy wires are noted. A right internal jugular central venous catheter is seen with tip at the inferior cavoatrial junction. An electronic i mplant overlies left chest wall. IMPRESSION: 1. Central line tip at inferior cavoatrial junction. 2. Worsened diffuse lung disease, right worse than left, consistent with pneumonia versus pulmonary e aria. 3. Stable small right pleural effusion. 4. Cardiomegaly. Reviewed, dictated and finalized at location E. IMPRESSION: 1. Central line tip at inferior cavoatrial junction. 2. Worsened diffuse lung disease, right worse than left, consistent with pneumo ariela versus pulmonary edema. 3. Stable small right pleural effusion. 4. Cardiomegaly.
--- NOTE | ~2022-12-15 | XR_ITS ---
EXAMINATION: XR chest 1V portable INDICATION: Possible pleural effusion TECHNIQUE: Portable AP chest at 0534 hours COMPARISON: 01/08/2023 FINDINGS: There has been interval development of a moderate-sized right pleural effusion. Associated airspace opacities of the right lung likely reflect passive atelectasis. Cardiomegaly is noted. There is no pneumothorax. Median sternotomy wires are consistent with prior cardiac surgery. IMPRESSION: 1. Moderate size right pleural effusion. Reviewed, dictated and finalized at location A.
--- NOTE | ~2022-12-15 | US_ITS ---
EXAMINATION: US retroperitoneal comp DATE: 12/15/2022 09:57 INDICATION: Acute kidney injury TECHNIQUE: Multiple grayscale and Doppler ultrasound images of the kidneys were obtained. COMPARISON: None. FINDINGS: The right kidney measures 12.3 x 5.4 x 5.5 cm. The left kidney measures 11.4 x 6.2 x 4.6 cm . The kidneys demonstrate normal parenchymal echogenicity. There is a small volume of ascites. There is no hydronephrosis. The bladder is decompressed by Limon catheter. IMPRESSION: 1. Normal kidneys without hydronephrosis. 2. Small volume of ascites noted. Reviewed, dictated and finalized at location L.
--- NOTE | ~2022-12-15 | XR_ITS ---
XR chest port-a-cath/central 01/13/2023 11:45 Indication: Internal jugular dialysis catheter placement Procedure: AP portable chest Comparison: Comparison to multiple prior studies sequentially, with oldest reviewed study dated 01/03. Findings: Status post median sternotomy for CABG. Right IJ central venous catheter tip in the SVC. Di ffuse bilateral airspace disease which may represent pneumonia or edema. Large right pleural effusion . No pneumothorax. Impression: 1: Extensive bilateral airspace disease which may represent pneumonia or edema. 2: Large right pleural effusion. Reviewed, dictated and finalized at location B. Impression: 1: Extensive bilateral airspace disease which may represent pneumonia or edema. 2: Large right pleural effusion.
--- NOTE | ~2022-12-15 | XR_ITS ---
EXAMINATION: XR abdomen/kub 1V DATE: 01/13/2023 18:55 INDICATION: Acute kidney injury. TECHNIQUE: A supine view of the abdomen on 2 radiographs was obtained. COMPARISON: CT abdomen and pelvis 01/13/2023 FINDINGS: There are no dilated loops of bowel. There is a large volume of stool in the colon. There i s no urolithiasis. There is a moderate-sized right pleural effusion. An electronic device overlies le ft chest. Median sternotomy wires are noted. IMPRESSION: 1. No urolithiasis. 2. Moderate-sized right pleural effusion. Reviewed, dictated and finalized at location E.
--- NOTE | ~2022-12-15 | XR_ITS ---
Portable chest x-ray Comparison: 12/28/2022 Clinical History: Hypoxia, CHF Findings: Moderate CHF pattern is unchanged. Small right pleural effusion present. Stable cardiac de vice. Cardiomediastinal silhouette is stable. Bones and soft tissues are unremarkable. Impression: Moderate presumed CHF with probable small right pleural effusion. Reviewed, dictated and finalized at [facility]. Impression: Moderate presumed CHF with probable small right pleural effusion.
--- NOTE | ~2022-12-15 | XR_ITS ---
EXAMINATION: XR fl guide central line place DATE: 12/30/2022 15:50 INDICATION: Dialysis catheter placement. TECHNIQUE: 4 intraoperative spot fluoroscopic views of the chest were obtained. I was not present. Fl uoroscopy exposure time was 10 seconds. COMPARISON: None. FINDINGS: There is a right internal jugular central venous catheter with tip not well visualized. Reynaldo rnotomy wires are noted. IMPRESSION: 1. Right internal jugular central venous catheter with tip not well visualized. Reviewed, dictated and finalized at location E.
--- NOTE | ~2022-12-15 | XR_ITS ---
EXAMINATION: XR_CXR1VTHORA_CR DATE: 12/21/2022 11:51 INDICATION: Right pleural effusion status post thoracentesis. TECHNIQUE: A single frontal view of the chest was obtained. COMPARISON: Chest CT 12/19/2022, chest single view 12/18/2022 FINDINGS: There is a small right pleural effusion. There are airspace opacities in right mid and lowe r lung zones. There is a diffuse interstitial pattern, consistent with pulmonary edema. No pneumothor ax. Cardiomegaly is noted. Median sternotomy wires and mediastinal surgical clips are seen, likely fr om prior coronary artery bypass grafting. There is an electronic implant in left anterior chest wall. IMPRESSION: 1. Mild pulmonary edema. 2. Small right pleural effusion with interval improvement. 3. Persistent airspace opacities in right mid and lower lung zones, consistent with atelectasis or le ss likely pneumonia. 4. Cardiomegaly. Reviewed, dictated and finalized at location A. IMPRESSION: 1. Mild pulmonary edema. 2. Small right pleural effusion with interval improvement. 3. Persistent airspace opacities in right mid and lower lung zones, consistent with atelectasis or less likely pneumonia. 4. Cardiomegaly.
--- NOTE | ~2022-12-15 | XR_ITS ---
Portable chest x-ray Comparison: None Clinical History: CHF Findings: Ygdig-qr-oiaszvnp right pleural effusion present. There is mild to moderate pulmonary demario a pattern. Cardiomediastinal silhouette is prominent, with cardiac monitoring device. Bones and soft tissues are unremarkable. Impression: Ykit-je-wewrhxyy pulmonary edema pattern with small to moderate right pleural effusion. Cardiomegaly, with cardiac monitoring device. Reviewed, dictated and finalized at location M. Impression: Nqpn-yi-crskfiwe pulmonary edema pattern with small to moderate right pleural e ffusion. Cardiomegaly, with cardiac monitoring device.
--- NOTE | ~2022-12-15 | XR_ITS ---
Portable chest x-ray Comparison: 12/27/2022 Clinical History: Pulmonary edema Findings: Moderate bibasilar pulmonary edema pattern is unchanged. Cardiomediastinal silhouette is stable, with monitoring device. Bones and soft tissues are unremarkable. Impression: Stable pulmonary edema pattern. Stable cardiac monitoring device. Reviewed, dictated and finalized at [facility]. Impression: Stable pulmonary edema pattern. Stable cardiac monitoring device.
--- NOTE | ~2022-12-15 | XR_ITS ---
Portable chest x-ray Comparison: 12/26/2022 Clinical History: Tachycardia, dyspnea Findings: Moderate pulmonary edema pattern is present. Questionable small right pleural effusion. C ardiomediastinal silhouette is stable, with cardiac monitoring device. Bones and soft tissues are unr emarkable. Impression: Moderate pulmonary edema pattern with possible small right pleural effusion. Stable cardiomegaly with cardiac monitoring device. Reviewed, dictated and finalized at location . Impression: Moderate pulmonary edema pattern with possible small right pleural effusion. Stable cardiomegaly with cardiac monitoring device.
--- NOTE | ~2022-12-15 | XR_ITS ---
EXAMINATION: XR chest 1V portable DATE: 12/24/2022 11:56 INDICATION: Shortness of breath. TECHNIQUE: A single frontal view of the chest was obtained. COMPARISON: Chest single view 12/23/2022, chest CT 12/19/2022 FINDINGS: There is a small right pleural effusion. There are interstitial and airspace opacities in t he mid and lower lung zones. No pneumothorax. Cardiomegaly is noted. Median sternotomy wires and medi astinal surgical clips are seen, likely from prior coronary artery bypass grafting. There is an elect ronic implant in left anterior chest wall. IMPRESSION: 1. Airspace and interstitial opacities in the mid and lower lung zones consistent with pulmonary demario a or less likely pneumonia. 2. Small right pleural effusion. 3. Cardiomegaly. Reviewed, dictated and finalized at location A. IMPRESSION: 1. Airspace and interstitial opacities in the mid and lower lung zones consiste nt with pulmonary edema or less likely pneumonia. 2. Small right pleural effusion. 3. Cardiomegaly.
--- NOTE | ~2022-12-15 | CT_ITS ---
EXAMINATION:CT chest high resolution wo mt DATE: 12/19/2022 12:05 INDICATION: Hypoxia. Congestive heart failure. TECHNIQUE: Computed tomography (CT) of the chest was performed without intravenous contrast. Automate d exposure control and iterative reconstruction technique were employed. The dose-length product (DLP ) was 1088.41 mGy-cm. COMPARISON: Chest single view 12/18/2022 FINDINGS: There are moderate-sized right and small left pleural effusions. Calcified left hilar and m ediastinal lymph nodes are consistent with old granulomatous disease. There is septal thickening in t he lungs, consistent with pulmonary edema. There are airspace opacities in the lungs with a right pos terior predominance, likely atelectasis. Cardiomegaly is noted. There are coronary artery calcificati ons. There are changes of coronary artery bypass grafting. No pericardial effusion. Calcifications in the spleen are consistent with old granulomatous disease. There is a subcutaneous electronic implant in left anterior chest wall. There is mild bilateral gynecomastia. There is mild mediastinal lymphad enopathy, likely reactive. There is severe cervical spondylosis and mild thoracic spondylosis. There is mild chronic anterior wedging of multiple vertebral bodies. IMPRESSION: 1. Mild pulmonary edema. 2. Moderate-sized right and small left pleural effusions. 3. Cardiomegaly. Reviewed, dictated and finalized at location A.
--- NOTE | ~2022-12-15 | XR_ITS ---
EXAMINATION: XR chest 1V portable DATE: 12/26/2022 05:59 INDICATION: Shortness of breath. TECHNIQUE: A single frontal view of the chest was obtained. COMPARISON: Chest single view 12/24/2022 FINDINGS: There is a small right pleural effusion. There are airspace opacities in the mid and lower lung zones. No pneumothorax. Cardiomegaly is noted. Median sternotomy wires are noted. There is an el ectronic implant in left anterior chest wall. IMPRESSION: 1. Small right pleural effusion. 2. Airspace opacities in the mid and lower lung zones with improvement on the left, consistent with p ulmonary edema and atelectasis. Pneumonia cannot be excluded. 3. Cardiomegaly. Reviewed, dictated and finalized at location A. IMPRESSION: 1. Small right pleural effusion. 2. Airspace opacities in the mid and lower lung zones with improvement on the l eft, consistent with pulmonary edema and atelectasis. Pneumonia cannot be exclu ded. 3. Cardiomegaly.
--- NOTE | ~2022-12-15 | XR_ITS ---
XR chest 1V portable 01/03/2023 08:03 Indication: Shortness of breath and hypoxia. Procedure: AP portable chest Comparison: Comparison to multiple prior studies sequentially, with oldest reviewed study dated 04/2023. Findings: Status post median sternotomy for CABG. Mild cardiomegaly. There is diffuse bilateral airsp osvaldo disease unchanged. Small right pleural effusion. No pneumothorax. Right IJ central venous cathete r tip in the right atrium. Impression: 1: Persistent diffuse bilateral airspace disease which may represent edema or pneumonia. 2: Small right pleural effusion. Reviewed, dictated and finalized at location L. Impression: 1: Persistent diffuse bilateral airspace disease which may represent edema or p neumonia. 2: Small right pleural effusion.
--- NOTE | ~2022-12-15 | XR_ITS ---
EXAMINATION: XR chest 1V portable INDICATION: Hypoxia TECHNIQUE: Portable AP chest at 1132 hours COMPARISON: 12/15/2022 FINDINGS: Cardiomegaly is noted. There is a mild diffuse interstitial pattern with slight improvement . A small right pleural effusion is present which is decreased in size. Median sternotomy wires and m ediastinal surgical clips are seen, likely from prior coronary artery bypass grafting. IMPRESSION: 1. Cardiomegaly with improving pulmonary edema. 2. Small right pleural effusion with decrease in size. Reviewed, dictated and finalized at location F.
--- NOTE | ~2022-12-15 | US_ITS ---
EXAMINATION: US thoracentesis DATE: 01/05/2023 15:55 INDICATION: pleural effusion TECHNIQUE: The procedure and its risks, benefits, and alternatives were discussed with the patient an d his father. Potential risks discussed included bleeding, infection, and pneumothorax. The patient a nd his father understood the risks and agreed to proceed. The skin was prepped and draped in sterile fashion. 1% lidocaine was used for local anesthesia. Under ultrasound guidance, a 5 Fr catheter with trochar was advanced into the right pleural effusion. Fluid was aspirated. The catheter was removed, and a dressing was applied. There were no immediate complications. FINDINGS: Ultrasound images demonstrate a right pleural effusion and the catheter within the fluid. IMPRESSION: 1. Successful ultrasound-guided thoracentesis yielding 1000 mL of red, opaque fluid. Reviewed, dictated and finalized at location A.
--- NOTE | ~2022-12-15 | XR_ITS ---
EXAMINATION: XR chest 1V portable DATE: 12/23/2022 13:57 INDICATION: Shortness of breath TECHNIQUE: frontal view of the chest was obtained. COMPARISON: Chest radiograph dated 12/22/2022 FINDINGS: Interval improvement in bilateral airspace opacities, now predominantly perihilar. Likely small right pleural effusion. No pneumothorax or left-sided pleural effusion. Cardiomegaly. Median sternotomy wi res and mediastinal surgical clips are seen, likely from prior coronary artery bypass grafting. Left pectoral implantable property assessment monitor. IMPRESSION: 1. Decrease in now perihilar predominant bilateral airspace opacities consistent with improving pulmo nary edema versus less likely pneumonia. 2. Likely small right pleural effusion. 3. Cardiomegaly. Reviewed, dictated and finalized at location B. IMPRESSION: 1. Decrease in now perihilar predominant bilateral airspace opacities consisten t with improving pulmonary edema versus less likely pneumonia. 2. Likely small right pleural effusion. 3. Cardiomegaly.
--- NOTE | ~2022-12-15 | US_ITS ---
EXAMINATION: US thoracentesis DATE: 12/21/2022 12:01 INDICATION: pleural effusion TECHNIQUE: The procedure and its risks, benefits, and alternatives were discussed with the patient's father. Potential risks discussed included bleeding, infection, and pneumothorax. The patient's fathe r understood the risks and agreed to proceed. The skin was prepped and draped in sterile fashion. 1% lidocaine was used for local anesthesia. Under ultrasound guidance, a 5 Fr catheter with trochar was advanced into the right pleural effusion. Fluid was aspirated. The catheter was removed, and a dressi ng was applied. There were no immediate complications. FINDINGS: Ultrasound images demonstrate a right pleural effusion and the catheter within the fluid. IMPRESSION: 1. Successful ultrasound-guided thoracentesis yielding 1000 mL of clear, yellow fluid. Reviewed, dictated and finalized at location A. IMPRESSION: 1. Successful ultrasound-guided thoracentesis yielding 1000 mL of clear, yello w fluid.
--- NOTE | ~2022-12-15 | CT_ITS ---
EXAMINATION: CT abdomen pelvis wo con DATE: 01/13/2023 18:50 INDICATION: Acute kidney injury. TECHNIQUE: Computed tomography (CT) of the abdomen and pelvis was performed without intravenous contr ast. Automated exposure control and iterative reconstruction technique were employed. The dose-length product was 1373.31 mGy-cm. COMPARISON: Chest CT 12/19/2022 FINDINGS: The visualized portions of the lung bases demonstrate moderate-sized right and trace left p leural effusions. There is atelectasis bilaterally with a dependent predominance. A calcified paraeso phageal lymph node is consistent with old granulomatous disease. Cardiomegaly is noted. No pericardia l effusion. Median sternotomy wires are noted. The liver is normal. The gallbladder is absent. Calcif ications in the spleen are consistent with old granulomatous disease. The pancreas, adrenal glands, a nd kidneys are normal. There is no urolithiasis. Widespread arterial calcifications are noted. The bl adder is decompressed by a Lim[place] catheter. There is prominent fat in right inguinal canal that may be a hernia. There is a left inguinal hernia containing fat and ascites. There is diverticulosis of the colon without evidence of diverticulitis. There is a large volume of stool in the colon. There are n o dilated loops of bowel. The appendix is normal. There is a small volume of perihepatic ascites. The re are no pathologically enlarged lymph nodes. There are old healed anterior right rib fractures. The re is mild thoracic spondylosis and moderate lumbar spondylosis. There is mild chronic anterior wedgi ng of T11 vertebral body. IMPRESSION: 1. Moderate-sized right pleural effusion. 2. Small volume of ascites. 3. Normal kidney sizes. No hydronephrosis. Reviewed, dictated and finalized at location E.
--- NOTE | ~2022-12-15 | XR_ITS ---
Portable chest x-ray Comparison: 12/21/2022 Clinical History: Right effusion Findings: Small right pleural effusion is present. Moderate pulmonary edema pattern present. Cardio mediastinal silhouette is stable, with wireless monitoring device. Bones and soft tissues are unremar kable. Impression: Moderate pulmonary edema pattern and small right pleural effusion. Stable cardiac device. Reviewed, dictated and finalized at [facility]. Impression: Moderate pulmonary edema pattern and small right pleural effusion. Stable cardiac device.
--- NOTE | 2022-12-15 05:14 | ECG_ITS ---
Measurements Intervals [place] Rate: 66 P: 15 SD: 167 QRS: -9 QRSD: 92 T: -7 QT: 418 QTc: 440 Interpretive Statements SINUS RHYTHM LOW QRS VOLTAGE IN EXTREMITY LEADS [QRS DEFLECTION < 0.5 mV IN LIMB LEADS] NONSPECIFIC ST AND T-WAVE ABNORMALITY ABNORMAL ECG NO PREVIOUS ECG AVAILABLE FOR COMPARISON Electronically Signed On 12-15-2022 8:59:35 CDT by Dandy Zimmer M.D.
[2022-12-15 05:27] LABS: Basophils Absolute Auto 0.1 K/mm3 (0.0-0.1); Eosinophils Absolute Auto 0.1 K/mm3 (0-0.3); Eosinophils Percent Auto 1.4 % (0-4.4); Hematocrit 28.5 % (42.0-52.0); Hemoglobin 8.3 g/dL (14.0-18.0); Immature Granulocyte Absolute 0.02 K/mm3 (0.00-0.031); Immature Granulocyte Percent A 0.4 % (0-0.5); Lymphocytes Absolute Auto 0.34 K/mm3 (0.9-3.2); Lymphocytes Percent Auto 6.7 % (18.3-44.2); Mean Corpuscular HGB Conc 29.1 g/dl (32-36); Mean Corpuscular Hemoglobin 24.6 pg (26-34); Mean Corpuscular Volume 84.6 fl (80-100); Mean Platelet Volume 10.4 fl (7.4-10.4); Monocytes Absolute Auto 0.4 K/mm3 (0.1-0.6); Monocytes Percent Auto 8.5 % (2.6-8.5); Neutrophils Absolute Auto 4.2 K/mm3 (1.3-6.7); Platelet Count Result 172 k/mm3 (150-375); Red Blood Count 3.37 M/mm3 (4.6-6.20); Red Cell Distribution Width 18.2 % (11.5-14.5); White Blood Count 5.1 K/mm3 (4.5-10.0)
--- NOTE | 2022-12-15 05:31 | ED.GENADULT ---
HPI - General Adult General Chief complaint: Urogenital-Male Stated complaint: SWOLLEN GENITALIA Time Seen by Provider: 12/15/22 04:55 History of Present Illness HPI narrative: This is a 57-year-old male with a history of CHF presenting ED with swollen genitalia. Patient notes that over the last 3 months he is becoming more and more edematous. Now he has noticed that he has had swelling of his testicles and foreskin. It is painful. He also notes that he has 3-4 word dyspnea. patient denies fever, chills, chest pain, abdominal pain. He does not have urinary symptoms. Related Data Home Medications Medication Instructions Recorded Confirmed Lactobacillus acidophilus 2,000 mmu cells PO BID 11/22/22 11/23/22 (Acidophilus capsule) Saccharomyces boulardii 250 mg 250 mg PO DAILY 11/22/22 11/23/22 capsule (Florastor) amitriptyline 50 mg tablet 50 mg PO QHS 11/22/22 11/23/22 apixaban 5 mg tablet (Eliquis) 5 mg PO BID 11/22/22 11/23/22 aspirin 81 mg tablet,delayed 81 mg PO DAILY 11/22/22 11/23/22 release (Adult Low Dose Aspirin) atorvastatin 40 mg tablet (Lipitor) 40 mg PO QHS 11/22/22 11/23/22 benzonatate 100 mg capsule 100 mg PO TID PRN Cough 11/22/22 11/23/22 buspirone 15 mg tablet 15 mg PO TID 11/22/22 11/23/22 famotidine 20 mg tablet 20 mg PO Q12H 11/22/22 11/23/22 ferrous sulfate 325 mg (65 mg 325 mg PO BID 11/22/22 11/23/22 iron) tablet,delayed release fluticasone propionate 110 1 puff inhalation Q12H 11/22/22 11/23/22 mcg/actuation HFA aerosol inhaler furosemide 40 mg tablet 40 mg PO QAM 11/22/22 11/23/22 gabapentin 100 mg capsule 100 mg PO Q8H 11/22/22 11/23/22 guaifenesin 100 mg/5 mL oral liquid 200 mg PO Q6H PRN Cough 11/22/22 11/23/22 hydralazine 25 mg tablet 75 mg PO Q8H 11/22/22 11/23/22 ipratropium 0.5 mg-albuterol 3 mg 3 ml inhalation Q6H PRN Shortness 11/22/22 11/23/22 (2.5 mg base)/3 mL nebulization Of Breath soln isosorbide dinitrate 30 mg tablet 30 mg PO DAILY 11/22/22 11/23/22 losartan 50 mg tablet 50 mg PO DAILY 11/22/22 11/23/22 metoclopramide HCl 5 mg tablet 5 mg PO AC 11/22/22 11/23/22 metolazone 5 mg tablet 5 mg PO DAILY 11/22/22 11/23/22 metoprolol tartrate 50 mg tablet 50 mg PO BID 11/22/22 11/23/22 pyridoxine (vitamin B6) 50 mg 50 mg PO DAILY 11/22/22 11/23/22 tablet sennosides 8.6 mg-docusate sodium 1 tab-cap PO BID 11/22/22 11/23/22 50 mg capsule (Senna Plus) tiotropium bromide 18 mcg capsule 1 cap inhalation DAILY 11/22/22 11/23/22 with inhalation device (Spiriva with HandiHaler) trazodone 100 mg tablet 100 mg PO QHS 11/22/22 11/23/22 umeclidinium 62.5 mcg-vilanterol 1 inh inhalation DAILY 11/22/22 11/23/22 25 mcg/actuation powdr for inhalation (Anoro Ellipta) dulaglutide 0.75 mg/0.5 mL 0.75 mg subcut WEEKLY 11/23/22 11/23/22 subcutaneous pen injector (Trulicity) Allergies Allergy/AdvReac Type Severity Reaction Status Date / Time No Known Allergies Allergy Unverified 11/22/22 13:49 [facility] Past Medical History Medical History Anxiety Cerebrovascular accident Chronic anemia Chronic anticoagulation Chronic kidney disease, stage IV (severe) Chronic obstructive pulmonary disease Chronic respiratory failure with hypoxia, on home oxygen therapy Combined systolic and diastolic congestive heart failure Coronary artery disease Depression Gastroesophageal reflux disease Hyperlipidemia Hypertension Hypothyroidism Insulin dependent type 2 diabetes mellitus Paroxysmal atrial fibrillation Peripheral neuropathy Peripheral vascular disease Spinal stenosis Surgical History Surgical History History of cardiac catheterization History of four vessel coronary artery bypass graft History of hernia repair History of right below knee amputation Family History Family History Mother Diabetes mellitus Hyperte
[2022-12-15 05:35] LABS: INR 1.8; Prothrombin Time 19.8 Seconds (11.1-14.7)
[2022-12-15] MEDS: FUROSEMIDE INJ 100 MG/10 ML VIAL 80 MG IV PUSH (05:35)
[2022-12-15 05:37] LABS: Alanine Aminotransferase 23 U/L (6-50); Alkaline Phosphatase 289 U/L (38-126); Anion Gap 7 mmol/L (8-16); Aspartate Amino Transferase 25 U/L (17-59); Bilirubin,Total 0.9 mg/dL (0.2-1.3); Blood Urea Nitrogen 88 mg/dL (9-20); Calcium 8.9 mg/dL (8.4-10.2); Carbon Dioxide 27 mmol/L (22-30); Chloride 109 mmol/L (98-107); Estimated CRCL calculation 40 ml/min; Estimated Glomerular Filt Rate 26; Glucose 128 mg/dL (65-110); Lipase 34 U/L (23-300); Partial Thromboplastin Time 39.1 SECONDS (22.3-36.8); Potassium 5.1 mmol/L (3.4-5.0); Sodium 143 mmol/L (137-145)
[2022-12-15 05:54] LABS: NT Pro B Type Natriuretic Pept 12900 pg/mL (19.9-100); Troponin I 0.036 ng/mL (0.000-0.034)
[2022-12-15 05:57] LABS: Anisocytosis 1+ (NORMAL); Ovalocytes 1+ (NORMAL); Platelet Estimate Adequate (Adequate); Schistocytes Rare (NORMAL)
--- NOTE | 2022-12-15 06:01 | PC.NURSE ---
Scrotum elevated using washcloths and pillow case
[2022-12-15 06:15] LABS: Appearance Urine Clear (Clear); Bacteria Urine None Seen /hpf; Bilirubin Urine Negative (Negative); Blood Urine Negative (Negative); Color Urine Yellow (Yellow); Glucose Urine UA Negative (Negative); Ketones Urine Negative (Negative); Leukocyte Esterase Ur Negative LEU/UL (Negative); Nitrate Urine Negative (Negative); Non Pathogenic Casts 0-2; Protein Urine 2+ mg/dL (Negative); RBC Urine 0-2 /hpf (0-2); Specific Grav Ur 1.014 (1.001-1.035); Squamous Epithelial Cell Urine None seen /hpf (Few); Urobilinogen Urine 0.2 mg/dL (<2.0); WBC Urine 0-5 /hpf
[2022-12-15 06:23] LABS: Add Urine Microscopic? YES
[2022-12-15] MEDS: INSULIN HUMAN REGULAR (*BKC) 100 UNITS/ML 10 UNITS IV PUSH (06:25)
--- NOTE | 2022-12-15 06:26 | PC.NURSE ---
glucose was 128 at 0625
[2022-12-15 06:27] LABS: Glucose Point of Care 128 mg/dl (65-105)
[2022-12-15] MEDS: SODIUM ZIRCONIUM CYCLOSILICATE 10 GM POWD.PACK PO (06:27)
[2022-12-15] MEDS: DEXTROSE 50% 25 GM/50 ML SYRINGE IV PUSH (06:27)
[2022-12-15] MEDS: HYDROcodone/acetaminophen (*CRX) 5-325 MG TABLET 1 TAB PO (06:40)
--- NOTE | 2022-12-15 07:01 | PC.NURSE ---
Attempted to call report to IMU. Receiving RN unable to take report at this time.
--- NOTE | 2022-12-15 08:10 | ADMGEN ---
This patient, Wilfredo Bose, was admitted to IMU Room 210-01. Patient/family oriented to hospital policies and general routines including ID bracelet, bed and alarms, visiting hours, pain management, procedures, bathroom and other care routines, personal items, smoking policy, room service/diet, and visiting hours. Information on how to activate the Rapid Response Team has been discussed. Patient/Family are encouraged to report perceived risks to care and to ask questions if they do not understand what they are told or what they should do.
[2022-12-15 08:28] LABS: Glucose Point of Care 99 mg/dl (65-105)
[2022-12-15] MEDS: FUROSEMIDE INJ 40 MG/4 ML VIAL IV PUSH ×2 (08:50→17:53)
[2022-12-15 09:00] LABS: Troponin I 0.042 ng/mL (0.000-0.034)
--- NOTE | 2022-12-15 10:45 | PM.CNCAR ---
Assessment and Plan Assessment and plan (1) CHF (congestive heart failure): Code(s): I50.9 - Heart failure, unspecified Status: Acute Assessment and Plan: Combined acute on chronic systolic and diastolic heart failure. 2D echocardiogram Doppler is ordered Continue IV furosemide 40 mg IV q.12 hours. I's and O's, daily weights. Low-salt diet. Consider transition to Entresto if cost effective. In the meantime continue metoprolol, losartan, isosorbide, hydralazine (2) Acute renal failure superimposed on chronic kidney disease: Code(s): N17.9 - Acute kidney failure, unspecified; N18.9 - Chronic kidney disease, unspecified Status: Acute Assessment and Plan: Will follow renal function (3) Hypertension associated with diabetes: Code(s): E11.59 - Type 2 diabetes mellitus with other circulatory complications; I15.2 - Hypertension secondary to endocrine disorders Status: Acute Assessment and Plan: Above goal (4) Paroxysmal atrial fibrillation: Code(s): I48.0 - Paroxysmal atrial fibrillation Status: Chronic Assessment and Plan: On anticoagulation (5) Chronic anticoagulation: Code(s): Z79.01 - MCFP (current) use of anticoagulants Status: Chronic Assessment and Plan: Continue Eliquis (6) Combined systolic and diastolic congestive heart failure: Code(s): I50.40 - Unspecified combined systolic (congestive) and diastolic (congestive) heart failure Status: Chronic Assessment and Plan: As detailed above (7) Coronary artery disease: Code(s): I25.10 - Atherosclerotic heart disease of [place] coronary artery without angina pectoris Status: Acute Assessment and Plan: Elevated troponins are noted these are not related to acute plaque rupture. History of Present Illness History of Present Illness Consult date/time: 12/15/22 10:45 Requesting physician: Leonora Robin MD Consult reason: congestive heart failure Reason For Visit: CHF Narrative: Reason for consultation: CHF Requesting provider: Dr. Robin Date of service 12/15/2022 History patient is a 57-year-old male who has a history of coronary disease. Details are not known. He follows with [facility]. He has had progressive lower extremity and scrotal edema as well as worsening shortness of breath over the past several months. Symptoms worsened to the point that his testicles and foreskin were swollen and painful and decided to come to the hospital for further evaluation. He was started on IV diuretics and was found to be in volume overload and is already feeling a little bit better with less swelling and less shortness of breath. He does describe some orthopnea. No chest pain. No syncope, presyncope, paroxysmal nocturnal dyspnea. Does have occasional palpitations. He was recently admitted to this hospital for treatment of cellulitis Review of Systems Review of Systems: All systems reviewed & are unremarkable except as noted in HPI and below Constitutional: Constitutional: Denies body ache(s) Eyes: Eyes: Denies blurry vision ENT: Reports Normal hearing present Cardiovascular: Cardiovascular: Denies chest pain, Denies diaphoresis and Reports leg edema Respiratory: Respiratory: Reports dyspnea Gastrointestinal: Gastrointestinal: Denies abdominal pain Genitourinary: Genitourinary: Denies hematuria and Denies dysuria Musculoskeletal: Musculoskeletal: Denies back pain and Denies myalgias Integumentary/Breasts: Skin/Breast: Denies dry skin Neurologic: Denies Abnormal speech present Psychiatric: Psychiatric: Denies behavioral changes Endocrine: Endocrine: Denies excessive sweating Hematologic/Lymphatic: Hematologic/Lymphatic: Denies easy bleeding Allergic/Immunologic: Allergic/Immunologic: Denies GI upset with certain foods PMFSH Past Medical History Medical History (Updated 12/15/22 @ 10:50 by Andreia Peralta
--- NOTE | 2022-12-15 11:21 | PM.IMHP ---
H&P: HPI History of Present Illness Date/Time: 12/15/22 11:21 Chief Complaint: SOB Worsening Scrotal Swelling Narrative: ?57-year-old male with insulin-dependent diabetes, coronary artery disease, paroxysmal atrial fibrillation, chronic kidney disease, hypertension, COPD, recently discharged after being treated for left leg cellulitis presented with worsening SOB/leg swelling and scrotal swelling. His scrotal swelling has been to a point where he has pain in scrotal area. He denies medication non compliance. He follows up with [facility]. No records available yet.Shahbaz fever, chills, chest pain. Has elevated troponin but no chest pain. Was mildly hyperkalemic in ER. Review of Systems Review of Systems: All systems reviewed & are unremarkable except as noted in HPI and below PMFSH Past Medical History Medical History Acute renal failure superimposed on chronic kidney disease Anxiety Cerebrovascular accident Chronic anemia Chronic anticoagulation Chronic kidney disease, stage IV (severe) Chronic obstructive pulmonary disease Chronic respiratory failure with hypoxia, on home oxygen therapy Combined systolic and diastolic congestive heart failure Coronary artery disease Depression Gastroesophageal reflux disease Hyperlipidemia Hypertension Hypothyroidism Insulin dependent type 2 diabetes mellitus Paroxysmal atrial fibrillation Peripheral neuropathy Peripheral vascular disease Spinal stenosis Surgical History Surgical History History of cardiac catheterization History of four vessel coronary artery bypass graft History of hernia repair History of right below knee amputation Family History Family History Mother Diabetes mellitus Hypertension Heart disease Father Crohn disease Cancer Social History Social History Social History: Surrogate medical decision maker: Wilfredo Bose Sr. (father). Code status: Do not resuscitate. Smoking packs per day: 1 Smoking cigarettes per day: 20.0 Years smoked: 4 Smoking pack-years: 4.00 Smoking status: Former smoker Alcohol intake: never Substance use: current Substance use type: marijuana Last use: 09/25/2022 Lack of Transportation: No Lack of Food: Never True Current Housing: I Have Housing Concerned About Future Housing: No Difficulty Paying Gas/Electric Bills: No Difficulty Paying for Meds: No Currently Unemployed: No Education: High School Diploma/GED Difficulty w/ Childcare or Family Care: No Living arrangements: assisted living Additional living arrangements comments: [facility]. Spiritual care concerns: No Meds Home Medications and Allergies Home Medications Medication Instructions Recorded Confirmed Type Saccharomyces boulardii 250 mg 250 mg PO DAILY 11/22/22 12/15/22 History capsule (Florastor) amitriptyline 50 mg tablet 50 mg PO QHS 11/22/22 12/15/22 History apixaban 5 mg tablet (Eliquis) 5 mg PO BID 11/22/22 12/15/22 History aspirin 81 mg tablet,delayed 81 mg PO DAILY 11/22/22 12/15/22 History release (Adult Low Dose Aspirin) atorvastatin 40 mg tablet (Lipitor) 40 mg PO QHS 11/22/22 12/15/22 History benzonatate 100 mg capsule 100 mg PO TID PRN Cough 11/22/22 12/15/22 History buspirone 15 mg tablet 15 mg PO TID 11/22/22 12/15/22 History famotidine 20 mg tablet 20 mg PO Q12H 11/22/22 12/15/22 History ferrous sulfate 325 mg (65 mg 325 mg PO BID 11/22/22 12/15/22 History iron) tablet,delayed release fluticasone propionate 110 1 puff inhalation Q12H 11/22/22 12/15/22 History mcg/actuation HFA aerosol inhaler furosemide 40 mg tablet 40 mg PO QAM 11/22/22 12/15/22 History gabapentin 100 mg capsule 100 mg PO Q8H 11/22/22 12/15/22 History guaifenesin 100 mg/5 mL oral l
[2022-12-15 12:14] LABS: Glucose Point of Care 169 mg/dl (65-105)
[2022-12-15] MEDS: METOCLOPRAMIDE HCL 5 MG TABLET PO ×2 (13:15→17:55)
[2022-12-15] MEDS: GABAPENTIN 100 MG CAPSULE PO ×2 (13:15→21:05)
[2022-12-15] MEDS: busPIRone HCL 10 MG TABLET PO ×2 (13:16→17:54)
[2022-12-15] MEDS: hydrALAZINE HCL 25 MG TABLET 75 MG PO ×2 (13:16→21:04)
[2022-12-15] MEDS: traMADol HCL (*CRX) 50 MG TABLET PO (13:17)
[2022-12-15] MEDS: FERROUS SULFATE 324 MG TABLET PO ×2 (13:18→17:54)
[2022-12-15] MEDS: busPIRone HCL 5 MG TABLET PO ×2 (13:18→17:54)
[2022-12-15] MEDS: BENZONATATE 100 MG CAPSULE PO (13:21)
[2022-12-15] MEDS: ALBUTEROL SULFATE NEB 2.5 MG/3 ML INH INHALATION (13:35)
[2022-12-15] MEDS: TOLNAFTATE 1% POWDER 45 GM BTL 1 APPLIC TOPICAL ×2 (14:06→21:10)
[2022-12-15] MEDS: PERFLUTREN LIPID MICROSPHERES 1.5 ML VIAL DILUTED TO 10 ML TOTAL VOLUME IV PUSH (14:48)
[2022-12-15 16:07] LABS: Anion Gap 8 mmol/L (8-16); Blood Urea Nitrogen 86 mg/dL (9-20); Calcium 9.1 mg/dL (8.4-10.2); Carbon Dioxide 28 mmol/L (22-30); Chloride 106 mmol/L (98-107); Estimated CRCL calculation 39 ml/min; Estimated Glomerular Filt Rate 27; Glucose 165 mg/dL (65-110); Potassium 4.7 mmol/L (3.4-5.0); Sodium 142 mmol/L (137-145)
[2022-12-15 16:48] LABS: Glucose Point of Care 167 mg/dl (65-105)
[2022-12-15] MEDS: FLUTICASONE PROP 110 MCG INHALER 12 GM (*SP) 1 PUFF INHALATION (20:28)
[2022-12-15 20:54] LABS: Glucose Point of Care 212 mg/dl (65-105)
[2022-12-15] MEDS: traZODone HCL 50 MG TABLET 100 MG PO (21:05)
[2022-12-15] MEDS: AMITRIPTYLINE HCL 25 MG TABLET 50 MG PO (21:06)
[2022-12-15] MEDS: ATORVASTATIN 40 MG TABLET PO (21:07)
[2022-12-15] MEDS: FAMOTIDINE 20 MG TABLET PO (21:07)
[2022-12-15] MEDS: APIXABAN 5 MG TABLET PO (21:07)
[2022-12-15] MEDS: INSULIN GLARGINE (*BKC) 100 UNITS/ML 10 UNITS SUB-Q (21:08)
[2022-12-15] MEDS: FLUTICASONE PROPIONATE 0.05% NA SPR 16 GM BTL (*BKC) 1 SPRAY NASAL (21:08)
[2022-12-16] VITALS (16 sets, daily range): BP systolic 140–195; BP diastolic 65–88; PULSE 64–86; RESP 16–24; TEMP 36.2–36.7; O2SAT 90–100
--- NOTE | 2022-12-16 03:13 | PC.NURSE ---
patient is confused and orient x1. patient is stripping naked and keeps repeatedly removing his tele and telling me that he is going to walk out. [facility] living.
[2022-12-16 04:58] LABS: Basophils Absolute Auto 0.1 K/mm3 (0.0-0.1); Basophils Percent Auto 0.9 % (0.2-1.2); Eosinophils Absolute Auto 0.1 K/mm3 (0-0.3); Eosinophils Percent Auto 1.3 % (0-4.4); Hematocrit 26.2 % (42.0-52.0); Hemoglobin 7.6 g/dL (14.0-18.0); Immature Granulocyte Absolute 0.01 K/mm3 (0.00-0.031); Immature Granulocyte Percent A 0.2 % (0-0.5); Lymphocytes Absolute Auto 0.39 K/mm3 (0.9-3.2); Mean Corpuscular Hemoglobin 24.4 pg (26-34); Mean Corpuscular Volume 84.2 fl (80-100); Mean Platelet Volume 10.4 fl (7.4-10.4); Monocytes Absolute Auto 0.5 K/mm3 (0.1-0.6); Monocytes Percent Auto 9.4 % (2.6-8.5); Neutrophils Absolute Auto 4.5 K/mm3 (1.3-6.7); Neutrophils Percent Auto 81.2 % (45.5-73.1); Platelet Count Result 173 k/mm3 (150-375); Red Blood Count 3.11 M/mm3 (4.6-6.20); Red Cell Distribution Width 18.1 % (11.5-14.5); White Blood Count 5.5 K/mm3 (4.5-10.0)
[2022-12-16 05:19] LABS: Anion Gap 6 mmol/L (8-16); Blood Urea Nitrogen 81 mg/dL (9-20); Calcium 8.9 mg/dL (8.4-10.2); Carbon Dioxide 31 mmol/L (22-30); Chloride 105 mmol/L (98-107); Estimated CRCL calculation 42 ml/min; Estimated Glomerular Filt Rate 29; Glucose 126 mg/dL (65-110); Magnesium 2.6 mg/dL (1.6-2.3); Potassium 4.2 mmol/L (3.4-5.0); Sodium 142 mmol/L (137-145)
[2022-12-16] MEDS: LEVOTHYROXINE SODIUM 100 MCG TABLET PO (05:39)
[2022-12-16] MEDS: GABAPENTIN 100 MG CAPSULE PO ×3 (05:39→20:59)
[2022-12-16] MEDS: METOCLOPRAMIDE HCL 5 MG TABLET PO ×3 (05:39→16:23)
[2022-12-16] MEDS: hydrALAZINE HCL 25 MG TABLET 75 MG PO ×3 (05:39→20:59)
[2022-12-16 06:11] LABS: Anisocytosis 1+ (NORMAL); Hypochromasia 1+ (NORMAL); Platelet Estimate Adequate (Adequate)
[2022-12-16 06:12] LABS: Ovalocytes 1+ (NORMAL); Schistocytes None Seen (NORMAL)
[2022-12-16 07:52] LABS: Glucose Point of Care 139 mg/dl (65-105)
[2022-12-16] MEDS: FLUTICASONE PROP 110 MCG INHALER 12 GM (*SP) 1 PUFF INHALATION ×2 (08:43→21:49)
[2022-12-16] MEDS: UMECLIDINIUM/VILANTEROL 62.5-25 MCG ELLIPTA 1 PUFF INHALATION (08:43)
[2022-12-16] MEDS: busPIRone HCL 10 MG TABLET PO ×3 (09:16→16:24)
[2022-12-16] MEDS: FLUTICASONE PROPIONATE 0.05% NA SPR 16 GM BTL (*BKC) 1 SPRAY NASAL ×2 (09:16→20:59)
[2022-12-16] MEDS: ISOSORBIDE MONONITRATE 30 MG TAB.ER.24H PO (09:17)
[2022-12-16] MEDS: CLOPIDOGREL BISULFATE 75 MG TABLET PO (09:17)
[2022-12-16] MEDS: FAMOTIDINE 20 MG TABLET PO ×2 (09:17→20:59)
[2022-12-16] MEDS: busPIRone HCL 5 MG TABLET PO ×3 (09:17→16:22)
[2022-12-16] MEDS: FUROSEMIDE INJ 40 MG/4 ML VIAL IV PUSH ×2 (09:18→16:22)
[2022-12-16] MEDS: APIXABAN 5 MG TABLET PO ×2 (09:18→20:59)
[2022-12-16] MEDS: PYRIDOXINE HCL 50 MG TABLET PO (09:18)
[2022-12-16] MEDS: ASCORBIC ACID 500 MG TABLET PO (09:18)
[2022-12-16] MEDS: ASPIRIN 81 MG ENTERIC TABLET PO (09:19)
[2022-12-16] MEDS: TOLNAFTATE 1% POWDER 45 GM BTL 1 APPLIC TOPICAL ×2 (09:19→20:58)
[2022-12-16] MEDS: FERROUS SULFATE 324 MG TABLET PO ×2 (11:14→16:24)
--- NOTE | 2022-12-16 11:23 | PM.CNPUL ---
Assessment and Plan Assessment and plan (1) CHF (congestive heart failure): Code(s): I50.9 - Heart failure, unspecified Status: Acute (2) Pleural effusion: Code(s): J90 - Pleural effusion, not elsewhere classified Status: Acute (3) Chronic anemia: Code(s): D64.9 - Anemia, unspecified Status: Chronic (4) Chronic respiratory failure with hypoxia, on home oxygen therapy: Code(s): J96.11 - Chronic respiratory failure with hypoxia; Z99.81 - Dependence on supplemental oxygen Status: Acute Assessment and Plan: This 57-year-old man has had history of respiratory failure supplemental oxygen at home, on treatment for possible COPD, is currently hospitalized with scrotal edema left lower extremity edema, small ascites on abdominal ultrasound, left pleural effusion and pulmonary congestion likely related to congestive heart failure. Patient has symptoms of daytime somnolence which are probably related to sleep disordered breathing. In fact his RN noticed oxyhemoglobin desaturation with some respiratory pauses while the patient was receiving supplemental oxygen. Plan: agree with treatment for congestive heart failure. His right pleural effusion is most likely related to congestive heart failures as he has no other symptoms to suggest lower respiratory tract infection. He has been on chronic anticoagulation which makes pulmonary embolism unlikely. will continue with supplemental oxygen and also genetic BiPAP support using 12/6 cm water pressure at night and prn, with close monitoring of oxyhemoglobin saturation. Will repeat blood gases today and consider ApneaLink prior to DC home. (5) Chronic kidney disease, stage IV (severe): Code(s): N18.4 - Chronic kidney disease, stage 4 (severe) Status: Chronic (6) Paroxysmal atrial fibrillation: Code(s): I48.0 - Paroxysmal atrial fibrillation Status: Chronic (7) Chronic obstructive pulmonary disease: Code(s): J44.9 - Chronic obstructive pulmonary disease, unspecified Status: Chronic (8) Coronary artery disease: Code(s): I25.10 - Atherosclerotic heart disease of [place] coronary artery without angina pectoris Status: Acute (9) Diabetes mellitus with chronic kidney disease: Code(s): E11.22 - Type 2 diabetes mellitus with diabetic chronic kidney disease Status: Acute History of Present Illness History of Present Illness Consult date: 12/16/22 Chief complaint: CHF Narrative: This 57-year-old man presented with scrotal edema and also leg edema. The patient has multiple medical problems including coronary artery disease status post coronary artery bypass grafting, insulin-dependent diabetes mellitus, paroxysmal atrial fibrillation, chronic kidney disease, anemia, hypertension, COPD. I was asked to see the patient for possible sleep disordered breathing. The patient was hospitalized 3 weeks ago with left leg edema/cellulitis. He presented with increasing shortness of breath scrotal edema and hypoxemia. Patient underwent workup with chest x-ray and was evaluated by Cardiology Services. Chest x-ray showed pulmonary congestion and pleural effusion on left. No previous x-rays available for comparison purposes. Echocardiogram showed diastolic and systolic left ventricular dysfunction and has been on diuretic. Upon questioning the patient admitted having chronic shortness of breath with activities. patient resides at a local [place] [facility]. He has got history of COPD although he smoked for only 4 years. He has been on maintenance bronchodilators as well as short-acting bronchodilators. Regarding possible sleep disordered breathing the patient stated that he sleeps poorly at night. When he wakes up in the morning he feels tired and, usually takes naps during the day. According to his nurse he desaturated while on supplemental oxygen and also had some respiratory pauses while asleep. Patient ne
--- NOTE | 2022-12-16 11:28 | PM.PNCARD ---
Progress Note: A&P Assessment and Plan (1) CHF (congestive heart failure): Code(s): I50.9 - Heart failure, unspecified Status: Acute Assessment and Plan: Presents with dyspnea on exertion, abdominal distention and scrotal edema. He has RV dysfunction and diastolic heart failure. Echo obtained yesterday showing normal LVSF, EF 50-55%, mild TR, no other significant valve pathology. Continue IV furosemide 40 mg IV q.12 hours. Accurate intake and output Daily weights Low Na diet CHF counseling - tar pot man c/s placed Consider transition to Entresto if cost effective. In the meantime continue metoprolol, losartan, isosorbide, hydralazine. (2) Acute renal failure superimposed on chronic kidney disease: Code(s): N17.9 - Acute kidney failure, unspecified; N18.9 - Chronic kidney disease, unspecified Status: Acute Assessment and Plan: Will follow renal function (3) Hypertension associated with diabetes: Code(s): E11.59 - Type 2 diabetes mellitus with other circulatory complications; I15.2 - Hypertension secondary to endocrine disorders Status: Acute Assessment and Plan: Above goal (4) Paroxysmal atrial fibrillation: Code(s): I48.0 - Paroxysmal atrial fibrillation Status: Chronic Assessment and Plan: On anticoagulation (5) Chronic anticoagulation: Code(s): Z79.01 - manager terminal (current) use of anticoagulants Status: Chronic Assessment and Plan: Continue Eliquis (6) Combined systolic and diastolic congestive heart failure: Code(s): I50.40 - Unspecified combined systolic (congestive) and diastolic (congestive) heart failure Status: Chronic Assessment and Plan: As detailed above (7) Coronary artery disease: Code(s): I25.10 - Atherosclerotic heart disease of [place] coronary artery without angina pectoris Status: Acute Assessment and Plan: Elevated troponins are noted these are not related to acute plaque rupture. Subjective Date/time seen: 12/16/22 11:28 Cardiology follow up for CHF Interval history: Continues to complain of shortness of breath today. Does not think his breathing has improved any since yesterday. Has shortness of breath with minimal exertion. No chest pain, palpitations. Review of Systems Review of Systems: All systems reviewed & are unremarkable except as noted in HPI and below Constitutional: Constitutional: Denies body ache(s) and Denies excessive sweating Eyes: Eyes: Denies blurry vision ENT: Reports Normal hearing present Cardiovascular: Cardiovascular: Denies chest pain, Denies diaphoresis, Reports leg edema and Reports dyspnea Respiratory: Respiratory: Reports dyspnea Gastrointestinal: Gastrointestinal: Denies abdominal pain Genitourinary: Genitourinary: Denies hematuria and Denies dysuria Musculoskeletal: Musculoskeletal: Denies back pain and Denies myalgias Integumentary/Breasts: Skin/Breast: Denies dry skin Neurologic: Reports Normal hearing present, Denies Abnormal speech present and Denies behavioral changes Psychiatric: Psychiatric: Denies behavioral changes Endocrine: Endocrine: Denies excessive sweating Hematologic/Lymphatic: Hematologic/Lymphatic: Denies easy bleeding Allergic/Immunologic: Allergic/Immunologic: Denies GI upset with certain foods Exam Narrative: Awake alert oriented appears stated age Const: General: comfortable and no acute distress HENMT: Face/Nose/Sinus: Normal nares present Mouth: Yes moist mucous membranes Eyes: Sclera: sclerae normal EOM: EOMs intact bilaterally Neck: Neck: supple Carotids: no bruits Chest: Other: No reproducible chest wall pain to palpation Resp: Effort & Inspection: normal respiratory effort Auscultation: not clear to auscultation bilaterally and rales Cardio: Rate: regular rate Rhythm: regular rhythm Heart sounds: Murmur heart sound present GI: Inspection: non-di
[2022-12-16 11:43] LABS: Alveolar/Arterial O2 Gradient 47.7 mmHg; Base Excess ABG 3.9 mEq/l (+/-2.0); Fractional Inspired Oxygen 21 %; HCO3 ABG 28.7 mEq/l (22.0-26.0); Oxygen Content ABG 10.5 %vol (16.0-22.0); PCO2 ABG 44.3 mmHg (35.0-45.0); PO2 FiO2 Ratio Arterial Blood 2.33 %; pH ABG 7.429 (7.350-7.450)
[2022-12-16 11:46] LABS: Device ROOM AIR; Modified Allen's Test Pass; Oxygen Saturation ABG 85.5 % (95.0-100.0); Oxyhemoglobin 82.8 % THb (90.0-100.0); Site Drawn RIGHT RADIAL
[2022-12-16 12:27] LABS: Glucose Point of Care 192 mg/dl (65-105)
--- NOTE | 2022-12-16 12:45 | PM.IMPN ---
Progress Note: A&P Assessment and Plan (1) Acute renal failure superimposed on chronic kidney disease: Code(s): N17.9 - Acute kidney failure, unspecified; N18.9 - Chronic kidney disease, unspecified Status: Acute (2) HTN (hypertension): Code(s): I10 - Essential (primary) hypertension Status: Acute (3) CHF (congestive heart failure): Code(s): I50.9 - Heart failure, unspecified Status: Acute (4) Chronic anticoagulation: Code(s): Z79.01 - termite renewal inspector (current) use of anticoagulants Status: Chronic Plan 57-year-old male with insulin-dependent diabetes, coronary artery disease, paroxysmal atrial fibrillation, chronic kidney disease, hypertension, COPD presented with worsening scrotal swelling along with Worsening SOB. 1)Acute on Chronic Combined Systolic/Diastolic HF+Paroxysmal Afibb: Admit to tele O2 support Elevated troponin but plateaued, amandaley with HF Start on BID IV lasix Strict I/O Has rios Daily weight if possible Appreciate Cardiology help Obtain echo likely plan to transition to Entresto if cost effective as per cardiology will continue metoprolol, isosorbide, hydralazine Will hold losartan for now c/w ASA, statin On eliquis for Afibb 2)JOSE M on CKD+Hyperkalemia: Recieved insulin and kayexalate in ER Repeat BMP in afternoon c/w lasix Renal USG unremarkable Avoid neprotoxins Holding metalazone for now 3)Diabetes Mellitus: BG check TID AC and HS c/w lantus+low dose SS Adjust insulin as needed Hold trulicity 4)DVT ppx: On Eliquis 5)Code:DNR 6)Dispo:Admit to IMU 10/18/2022 Patient is feeling slightly better today. Plan is to continue current treatment and monitor labs closely. Subjective Date/time seen: 12/16/22 12:45 Patient was seen during the rounds today. Mild sob, no chest pain. No abdominal pain, no nausea or vomiting Mood stable. Review of Systems Review of Systems: All systems reviewed & are unremarkable except as noted in HPI and below Exam Const: General: no acute distress Other: on NC HENMT: Mouth: Yes moist mucous membranes Eyes: Sclera: sclerae normal Neck: Neck: supple Resp: Other: B/L diffuse coarse breath sounds with crackles Cardio: Rate: regular rate Rhythm: regular rhythm GI: Inspection: distended Auscultation: normal bowel sounds Other: non tender Urinary Catheter: Urinary Catheter: patent and draining Neuro: Speech: normal speech Extrem: Other: B/L leg swelling/edema Scrotal edema+ Psych: Mental Status: mental status grossly normal Objective Data Vital Signs Vital Signs: Vital Signs - 24 hr 12/15/22 13:37 12/15/22 13:37 12/15/22 13:49 Temperature Pulse Rate 68 86 69 Respiratory Rate 21 H 21 H 20 Blood Pressure Pulse Oximetry 93 Oxygen Delivery Nasal Cannula Oxygen Flow Rate 2 Fraction of Inspired Oxygen 12/15/22 14:00 12/15/22 16:00 12/15/22 16:00 Temperature 36.7 C Pulse Rate 72 66 71 Respiratory Rate 24 H Blood Pressure 157/76 H Pulse Oximetry 95 Oxygen Delivery Oxygen Flow Rate Fraction of Inspired Oxygen 12/15/22 16:00 12/15/22 18:00 12/15/22 20:00 Temperature 36.7 C Pulse Rate 66 70 72 Respiratory Rate 20 20 Blood Pressure 174/81 H Pulse Oximetry 95 99 Oxygen Delivery Nasal Cannula Oxygen Flow Rate 2 Fraction of Inspired Oxygen 12/15/22 20:00 12/15/22 20:00 12/15/22 22:00 Temperature Pulse Rate 71 71 68 Respiratory Rate 20 Blood Pressure Pulse Oximetry 99 Oxygen Delivery Room Air Oxygen Flow Rate Fraction of Inspired Oxygen 12/15/22 23:22 12/16/22 00:00 12/16/22 00:00 Temperature 37.1 C Pulse Rate 67 72 72 Respiratory Rate 16 16 Blood Pressure 146/65 H Pulse Oximetry 100 100 Oxygen Delivery Room Air Oxygen Flow Rate Fraction of Inspired Oxygen 12/16/22 02:00 12/16/22 04:00 12/16/22 04:00 Temperature 36.2 C L Pulse Rate 6
--- NOTE | 2022-12-16 13:47 | PCRCNOTE ---
BIPAP placed in pt's room per MD's order. Settings of 12/8, R 12 and 36% Fi02 entered and unit placed in standby for use [facility].
[2022-12-16] MEDS: INSULIN ASPART (*BKC) 100 UNITS/ML SUB-Q (16:18)
[2022-12-16 16:19] LABS: Glucose Point of Care 203 mg/dl (65-105)
[2022-12-16] MEDS: traMADol HCL (*CRX) 50 MG TABLET PO (17:21)
[2022-12-16 20:16] LABS: Glucose Point of Care 163 mg/dl (65-105)
[2022-12-16] MEDS: AMITRIPTYLINE HCL 25 MG TABLET 50 MG PO (20:58)
[2022-12-16] MEDS: INSULIN GLARGINE (*BKC) 100 UNITS/ML 10 UNITS SUB-Q (20:58)
[2022-12-16] MEDS: ATORVASTATIN 40 MG TABLET PO (20:59)
[2022-12-16] MEDS: traZODone HCL 50 MG TABLET 100 MG PO (20:59)
[2022-12-17] VITALS (24 sets, daily range): BP systolic 152–186; BP diastolic 71–92; PULSE 66–130; RESP 16–29; TEMP 36–37.3; O2SAT 92–100
[2022-12-17] MEDS: METOCLOPRAMIDE HCL 5 MG TABLET PO ×3 (06:08→17:04)
[2022-12-17] MEDS: hydrALAZINE HCL 25 MG TABLET 75 MG PO (06:08)
[2022-12-17] MEDS: LEVOTHYROXINE SODIUM 100 MCG TABLET PO (06:08)
[2022-12-17] MEDS: GABAPENTIN 100 MG CAPSULE PO ×3 (06:08→21:02)
[2022-12-17] MEDS: traMADol HCL (*CRX) 50 MG TABLET PO ×3 (06:17→22:40)
[2022-12-17 07:55] LABS: Glucose Point of Care 135 mg/dl (65-105)
[2022-12-17] MEDS: FLUTICASONE PROP 110 MCG INHALER 12 GM (*SP) 1 PUFF INHALATION ×2 (09:04→20:15)
[2022-12-17] MEDS: UMECLIDINIUM/VILANTEROL 62.5-25 MCG ELLIPTA 1 PUFF INHALATION (09:04)
--- NOTE | 2022-12-17 09:45 | PM.PNPUL ---
Progress Note: A&P Assessment and Plan (1) Chronic respiratory failure with hypoxia, on home oxygen therapy: Code(s): J96.11 - Chronic respiratory failure with hypoxia; Z99.81 - Dependence on supplemental oxygen Status: Acute Assessment and Plan: This 57-year-old man has had history of respiratory failure supplemental oxygen at home,? on treatment for possible COPD,? is currently hospitalized with? scrotal edema left lower extremity edema,? small ascites on abdominal ultrasound, left pleural effusion and pulmonary congestion likely related to congestive heart failure. Patient? has symptoms of daytime somnolence which are probably related to sleep disordered breathing.? In fact his? RN noticed oxyhemoglobin desaturation with some respiratory pauses while the patient was receiving supplemental oxygen. patient slept well last night while on generic BIPAP 12/8. has no new respiratory symptoms this a.m. and physical exam is unchanged. Plan: will continue with supplemental oxygen and also BiPAP support using 12/8? cm water pressure at night and prn, with close monitoring of? oxyhemoglobin saturation.? Will consider ApneaLink prior to DC home (2) Combined systolic and diastolic congestive heart failure: Code(s): I50.40 - Unspecified combined systolic (congestive) and diastolic (congestive) heart failure Status: Chronic (3) Pleural effusion: Code(s): J90 - Pleural effusion, not elsewhere classified Status: Acute (4) Chronic obstructive pulmonary disease: Code(s): J44.9 - Chronic obstructive pulmonary disease, unspecified Status: Chronic (5) Chronic kidney disease, stage IV (severe): Code(s): N18.4 - Chronic kidney disease, stage 4 (severe) Status: Chronic (6) CHF (congestive heart failure): Code(s): I50.9 - Heart failure, unspecified Status: Acute Subjective Date/time seen: 12/17/22 09:45 slept well on generic BiPAP 12/8, 35 % for obstructive sleep apnea/ pulmonary edema. Looks more awake this a.m. has no new respiratory symptoms currently on just oxygen via nasal cannula Review of Systems Review of Systems: All systems reviewed & are unremarkable except as noted in HPI and below ( HPI and below) Exam Narrative: GENERAL APPEARANCE: Well developed, well nourished, alert and cooperative, and appears to be in mild respiratory distress while on supplemental oxygen via nasal cannula SKIN: Inspection of the skin reveals superficial ulceration in right lateral neck. HEENT: Sclerae anicteric and conjunctivae pink and moist. Extraocular movements were intact and pupils were equal. Dry oral mucosa NECK: Supple. There was no thyroid enlargement, and no tenderness, or masses were felt. CHEST: Normal AP diameter and normal contour without any kyphoscoliosis. LUNGS: Auscultation of the lungs revealed decreased breath sounds at right base posteriorly and crackles at bases bilaterally, no wheezing CARDIAC: There was a regular rate and rhythm without any murmurs, gallops, rubs. ABDOMEN: Soft and nontender with normal bowel sounds. There was no organomegaly. LYMPH NODES: No lymphadenopathy was appreciated in the neck. EXTREMITIES: No cyanosis, clubbing; BKA on the right, trace pedal edema left lower extremity NEUROLOGIC: Alert and oriented x 3. Normal affect. Objective Data Vital Signs Vital Signs: Vital Signs - 24 hr 12/16/22 10:00 12/16/22 12:00 12/16/22 12:00 Temperature 36.2 C L Pulse Rate 70 75 76 Respiratory Rate 20 Blood Pressure 163/88 H Pulse Oximetry 97 Oxygen Delivery Oxygen Flow Rate Fraction of Inspired Oxygen 12/16/22 12:00 12/16/22 13:48 12/16/22 13:50 Temperature Pulse Rate Respiratory Rate Blood Pressure Pulse Oximetry 92 98 Oxygen Delivery Nasal Cannula BiPAP Nasal Cannula Oxygen Flow Rate 4 4 Fraction of Inspired Oxygen 12/16/22 14:00 12/16/22 16:00 12/16/22 16:00 Temperature 36.3 C L
[2022-12-17] MEDS: ISOSORBIDE MONONITRATE 30 MG TAB.ER.24H PO (09:56)
[2022-12-17] MEDS: busPIRone HCL 5 MG TABLET PO ×3 (09:57→17:05)
[2022-12-17] MEDS: FAMOTIDINE 20 MG TABLET PO ×2 (09:57→21:02)
[2022-12-17] MEDS: busPIRone HCL 10 MG TABLET PO ×3 (09:57→17:04)
[2022-12-17] MEDS: CLOPIDOGREL BISULFATE 75 MG TABLET PO (09:57)
[2022-12-17] MEDS: PYRIDOXINE HCL 50 MG TABLET PO (09:57)
[2022-12-17] MEDS: FLUTICASONE PROPIONATE 0.05% NA SPR 16 GM BTL (*BKC) 1 SPRAY NASAL ×2 (09:57→21:03)
[2022-12-17] MEDS: APIXABAN 5 MG TABLET PO ×2 (09:57→21:03)
[2022-12-17] MEDS: ASCORBIC ACID 500 MG TABLET PO (09:57)
[2022-12-17] MEDS: FUROSEMIDE INJ 40 MG/4 ML VIAL IV PUSH ×2 (09:57→17:05)
[2022-12-17] MEDS: TOLNAFTATE 1% POWDER 45 GM BTL 1 APPLIC TOPICAL (09:58)
--- NOTE | 2022-12-17 10:42 | PM.PNCARD ---
Progress Note: A&P Assessment and Plan (1) CHF (congestive heart failure): Code(s): I50.9 - Heart failure, unspecified Status: Acute Assessment and Plan: Presents with dyspnea on exertion, abdominal distention and scrotal edema. He has RV dysfunction and diastolic heart failure. Echo with normal LVSF, EF 50-55%, mild TR, no other significant valve pathology. Continue IV furosemide 40 mg IV q.12 hours. Diuresing well on diuretic regimen. Accurate intake and output Daily weights Low Na diet CHF counseling - pallet assembler c/s placed Consider transition to Entresto if cost effective. In the meantime continue metoprolol, losartan, isosorbide, hydralazine. Check renal function panel today. (2) Acute renal failure superimposed on chronic kidney disease: Code(s): N17.9 - Acute kidney failure, unspecified; N18.9 - Chronic kidney disease, unspecified Status: Acute Assessment and Plan: Will follow renal function (3) Hypertension associated with diabetes: Code(s): E11.59 - Type 2 diabetes mellitus with other circulatory complications; I15.2 - Hypertension secondary to endocrine disorders Status: Acute Assessment and Plan: Above goal. Increase dose of Hydralazine given uncontrolled blood pressure readings. (4) Paroxysmal atrial fibrillation: Code(s): I48.0 - Paroxysmal atrial fibrillation Status: Chronic Assessment and Plan: On anticoagulation (5) Chronic anticoagulation: Code(s): Z79.01 - correction (current) use of anticoagulants Status: Chronic Assessment and Plan: Continue Eliquis (6) Combined systolic and diastolic congestive heart failure: Code(s): I50.40 - Unspecified combined systolic (congestive) and diastolic (congestive) heart failure Status: Chronic Assessment and Plan: As detailed above (7) Coronary artery disease: Code(s): I25.10 - Atherosclerotic heart disease of [place] coronary artery without angina pectoris Status: Acute Assessment and Plan: Elevated troponins are noted these are not related to acute plaque rupture. Subjective Date/time seen: 12/17/22 10:42 Interval history: Reason for visit: Decompensated heart failure Feeling better. No new complaints this morning. Review of Systems Review of Systems: 8 point ROS obtained. Negative, unless stated in HPI. Exam Narrative: Awake alert oriented appears stated age Const: General: comfortable and no acute distress HENMT: Face/Nose/Sinus: Normal nares present Mouth: Yes moist mucous membranes Eyes: General: appearance normal, both eyes and all related structures Sclera: sclerae normal Neck: Neck: supple Carotids: bruit Chest: Other: No reproducible chest wall pain to palpation Resp: Effort & Inspection: normal respiratory effort Auscultation: diminished lung sounds Cardio: Rate: regular rate Rhythm: regular rhythm Heart sounds: Murmur heart sound present GI: Inspection: non-distended Urinary Catheter: Urinary Catheter: patent and draining and urine clear Skin: General skin exam: normal color Neuro: Cranial nerves: Yes Normal hearing present Speech: normal speech Extrem: Other: Right AKA Psych: Mental Status: mental status grossly normal Affect: normal affect Objective Data Vital Signs Vital Signs: Vital Signs - 24 hr 12/16/22 12:00 12/16/22 12:00 12/16/22 12:00 Temperature 36.2 C L Pulse Rate 75 76 Respiratory Rate 20 Blood Pressure 163/88 H Pulse Oximetry 97 92 Oxygen Delivery Nasal Cannula Oxygen Flow Rate 4 Fraction of Inspired Oxygen 12/16/22 13:48 12/16/22 13:50 12/16/22 14:00 Temperature Pulse Rate 79 Respiratory Rate Blood Pressure Pulse Oximetry 98 Oxygen Delivery BiPAP Nasal Cannula Oxygen Flow Rate 4 Fraction of Inspired Oxygen 12/16/22 16:00 12/16/22 16:00 12/16/22 16:00 Temperature 36.3 C L
--- NOTE | 2022-12-17 11:01 | PM.IMPN ---
Progress Note: A&P Assessment and Plan (1) CHF (congestive heart failure): Code(s): I50.9 - Heart failure, unspecified Status: Acute Assessment and Plan: Continue diuresis (2) Acute renal failure superimposed on chronic kidney disease: Code(s): N17.9 - Acute kidney failure, unspecified; N18.9 - Chronic kidney disease, unspecified Status: Acute Assessment and Plan: Creatinine improving (3) HTN (hypertension): Code(s): I10 - Essential (primary) hypertension Status: Acute Assessment and Plan: Blood pressures reviewed and control adequate (4) Chronic anticoagulation: Code(s): Z79.01 - senior care (current) use of anticoagulants Status: Chronic Assessment and Plan: Continue (5) Anemia, chronic disease: Code(s): D63.8 - Anemia in other chronic diseases classified elsewhere Status: Acute Assessment and Plan: Stable, follow-up (6) Diabetes: Code(s): E11.9 - Type 2 diabetes mellitus without complications Status: Acute Assessment and Plan: Blood sugars reviewed and adequately (7) Paroxysmal atrial fibrillation: Code(s): I48.0 - Paroxysmal atrial fibrillation Status: Chronic Assessment and Plan: Sinus rhythm and anticoagulated 12/17 transferred to medical floor (8) Coronary artery disease: Code(s): I25.10 - Atherosclerotic heart disease of [place] coronary artery without angina pectoris Status: Acute Subjective Date/time seen: 12/17/22 11:01 Interval history: Slept well last night. Doing well with his CPAP at 12/8 with 35% FiO2. Tolerating diet. Denied chest pain. Denied shortness of breath at rest. No swelling. No GI or complaints. No abnormal bleeding. Review of Systems Review of Systems: All systems reviewed & are unremarkable except as noted in HPI and below Exam Narrative: General alert and in no acute distress Neck without JVD Chest with coarse breath sounds Heart rate regular with no audible murmur Extremities no left foot edema, right with BKA and nonpitting edema of stump Abdomen protuberant but soft nontender with good bowel sounds no palpable masses Musculoskeletal right BKA as noted Neurologic cranial nerves symmetric to visual inspection Objective Data Vital Signs Vital Signs: Vital Signs - 24 hr 12/16/22 12:00 12/16/22 12:00 12/16/22 12:00 Temperature 97.1 F L Pulse Rate 75 76 Respiratory Rate 20 Blood Pressure 163/88 H Pulse Oximetry 97 92 Oxygen Delivery Nasal Cannula Oxygen Flow Rate 4 Fraction of Inspired Oxygen 12/16/22 13:48 12/16/22 13:50 12/16/22 14:00 Temperature Pulse Rate 79 Respiratory Rate Blood Pressure Pulse Oximetry 98 Oxygen Delivery BiPAP Nasal Cannula Oxygen Flow Rate 4 Fraction of Inspired Oxygen 12/16/22 16:00 12/16/22 16:00 12/16/22 16:00 Temperature 97.3 F L Pulse Rate 70 73 Respiratory Rate 24 H Blood Pressure 175/76 H Pulse Oximetry 90 97 Oxygen Delivery Nasal Cannula Oxygen Flow Rate 4 Fraction of Inspired Oxygen 12/16/22 18:00 12/16/22 20:00 12/16/22 20:00 Temperature 98.1 F Pulse Rate 73 82 Respiratory Rate 18 Blood Pressure 195/77 H Pulse Oximetry 98 98 Oxygen Delivery Nasal Cannula Oxygen Flow Rate 4 Fraction of Inspired Oxygen 12/16/22 21:45 12/16/22 21:55 12/16/22 20:00 Temperature Pulse Rate 86 76 Respiratory Rate 22 H Blood Pressure Pulse Oximetry 98 99 Oxygen Delivery Nasal Cannula BiPAP Oxygen Flow Rate 4 Fraction of Inspired Oxygen 12/16/22 22:00 12/17/22 00:00 12/17/22 00:00 Temperature 97.5 F L Pulse Rate 79 71 Respiratory Rate 18 Blood Pressure 166/89 H Pulse Oximetry 100 100 Oxygen Delivery BiPAP Oxygen Flow Rate Fraction of Inspired Oxygen 35 12/17/22 00:00 12/17/22 01:57 12/17/22 03:00 Temperature Pulse Rate 72 66 75 Respiratory Rate
[2022-12-17] MEDS: ASPIRIN 81 MG ENTERIC TABLET PO (11:23)
[2022-12-17 11:24] LABS: Glucose Point of Care 197 mg/dl (65-105)
[2022-12-17] MEDS: FERROUS SULFATE 324 MG TABLET PO ×2 (11:24→17:04)
[2022-12-17] MEDS: hydrALAZINE HCL 50 MG TABLET 100 MG PO ×2 (14:13→21:02)
[2022-12-17 16:27] LABS: Glucose Point of Care 194 mg/dl (65-105)
[2022-12-17 19:12] LABS: Hematocrit 26.6 % (42.0-52.0); Hemoglobin 7.9 g/dL (14.0-18.0); Mean Corpuscular HGB Conc 29.7 g/dl (32-36); Mean Corpuscular Hemoglobin 24.6 pg (26-34); Mean Corpuscular Volume 82.9 fl (80-100); Mean Platelet Volume 10.1 fl (7.4-10.4); Platelet Count Result 176 k/mm3 (150-375); Red Blood Count 3.21 M/mm3 (4.6-6.20); Red Cell Distribution Width 17.8 % (11.5-14.5); White Blood Count 7.7 K/mm3 (4.5-10.0)
[2022-12-17 19:34] LABS: Alanine Aminotransferase 17 U/L (6-50); Albumin Level 3.5 g/dL (3.5-5.1); Alkaline Phosphatase 201 U/L (38-126); Anion Gap 4 mmol/L (8-16); Aspartate Amino Transferase 20 U/L (17-59); Bilirubin,Total 1.2 mg/dL (0.2-1.3); Blood Urea Nitrogen 62 mg/dL (9-20); Carbon Dioxide 35 mmol/L (22-30); Carbon Dioxide 36 mmol/L (22-30); Chloride 100 mmol/L (98-107); Chloride 99 mmol/L (98-107); Estimated CRCL calculation 49 ml/min; Estimated Glomerular Filt Rate 37; Glucose 176 mg/dL (65-110); Glucose 177 mg/dL (65-110); Phosphorus 4.2 mg/dL (2.5-4.5); Potassium 4.2 mmol/L (3.4-5.0); Sodium 138 mmol/L (137-145); Sodium 140 mmol/L (137-145)
--- NOTE | 2022-12-17 19:35 | ECG_ITS ---
Measurements Intervals [place] Rate: 130 P: FL: 0 QRS: 18 QRSD: 101 T: 262 QT: 315 QTc: 464 Interpretive Statements ATRIAL FLUTTER/TACHYCARDIA WITH RAPID VENTRICULAR RESPONSE INDETERMINATE AXIS PATTERN CONSISTENT WITH PULMONARY DISEASE NONSPECIFIC ST AND T WAVE ABNORMALITY COMPARED TO ECG 12/15/2022 05:27:28 ATRIAL FLUTTER NOW PRESENT Electronically Signed On 12-18-2022 13:40:29 CDT by Gilberto Urena M.D.
[2022-12-17 20:28] LABS: Glucose Point of Care 195 mg/dl (65-105)
[2022-12-17] MEDS: INSULIN GLARGINE (*BKC) 100 UNITS/ML 10 UNITS SUB-Q (21:00)
[2022-12-17] MEDS: METOPROLOL TARTRATE 50 MG TAB PO (21:01)
[2022-12-17] MEDS: AMITRIPTYLINE HCL 25 MG TABLET 50 MG PO (21:02)
[2022-12-17] MEDS: traZODone HCL 50 MG TABLET 100 MG PO (21:02)
[2022-12-17] MEDS: ATORVASTATIN 40 MG TABLET PO (21:02)
[2022-12-17] MEDS: METOPROLOL TARTRATE INJ 5 MG/5 ML VIAL IV PUSH ×2 (21:03→22:40)
[2022-12-18] VITALS (24 sets, daily range): BP systolic 131–169; BP diastolic 72–99; PULSE 80–123; RESP 20–28; TEMP 36.4–37; O2SAT 93–100
[2022-12-18] MEDS: GABAPENTIN 100 MG CAPSULE PO ×3 (06:13→22:47)
[2022-12-18] MEDS: METOCLOPRAMIDE HCL 5 MG TABLET PO ×3 (06:13→16:14)
[2022-12-18] MEDS: LEVOTHYROXINE SODIUM 100 MCG TABLET PO (06:13)
[2022-12-18] MEDS: hydrALAZINE HCL 50 MG TABLET 100 MG PO ×3 (06:13→22:47)
[2022-12-18] MEDS: traMADol HCL (*CRX) 50 MG TABLET PO ×3 (06:40→20:36)
[2022-12-18 07:54] LABS: Hematocrit 26.3 % (42.0-52.0); Hemoglobin 7.7 g/dL (14.0-18.0); Mean Corpuscular HGB Conc 29.3 g/dl (32-36); Mean Corpuscular Hemoglobin 24.7 pg (26-34); Mean Corpuscular Volume 84.3 fl (80-100); Mean Platelet Volume 10.5 fl (7.4-10.4); Platelet Count Result 164 k/mm3 (150-375); Red Blood Count 3.12 M/mm3 (4.6-6.20); Red Cell Distribution Width 17.7 % (11.5-14.5); White Blood Count 7.7 K/mm3 (4.5-10.0)
[2022-12-18 07:59] LABS: Glucose Point of Care 115 mg/dl (65-105)
[2022-12-18 08:10] LABS: Albumin Level 3.4 g/dL (3.5-5.1); Anion Gap 5 mmol/L (8-16); Blood Urea Nitrogen 60 mg/dL (9-20); Calcium 8.6 mg/dL (8.4-10.2); Carbon Dioxide 34 mmol/L (22-30); Chloride 100 mmol/L (98-107); Estimated CRCL calculation 47 ml/min; Estimated Glomerular Filt Rate 35; Glucose 101 mg/dL (65-110); Phosphorus 4.3 mg/dL (2.5-4.5); Potassium 4.1 mmol/L (3.4-5.0); Sodium 139 mmol/L (137-145)
[2022-12-18] MEDS: UMECLIDINIUM/VILANTEROL 62.5-25 MCG ELLIPTA 1 PUFF INHALATION (08:14)
[2022-12-18] MEDS: FLUTICASONE PROP 110 MCG INHALER 12 GM (*SP) 1 PUFF INHALATION (08:14)
[2022-12-18] MEDS: METOPROLOL TARTRATE 50 MG TAB PO ×2 (10:05→20:35)
[2022-12-18] MEDS: busPIRone HCL 10 MG TABLET PO ×3 (10:05→16:14)
[2022-12-18] MEDS: CLOPIDOGREL BISULFATE 75 MG TABLET PO (10:05)
[2022-12-18] MEDS: ASCORBIC ACID 500 MG TABLET PO (10:05)
[2022-12-18] MEDS: FLUTICASONE PROPIONATE 0.05% NA SPR 16 GM BTL (*BKC) 1 SPRAY NASAL ×2 (10:05→20:36)
[2022-12-18] MEDS: ISOSORBIDE MONONITRATE 30 MG TAB.ER.24H PO (10:06)
[2022-12-18] MEDS: FAMOTIDINE 20 MG TABLET PO ×2 (10:07→20:35)
[2022-12-18] MEDS: PYRIDOXINE HCL 50 MG TABLET PO (10:08)
[2022-12-18] MEDS: APIXABAN 5 MG TABLET PO ×2 (10:08→20:36)
[2022-12-18] MEDS: busPIRone HCL 5 MG TABLET PO ×3 (10:09→16:13)
[2022-12-18] MEDS: FUROSEMIDE INJ 40 MG/4 ML VIAL IV PUSH (10:09)
[2022-12-18] MEDS: TOLNAFTATE 1% POWDER 45 GM BTL 1 APPLIC TOPICAL ×2 (10:09→20:36)
[2022-12-18] MEDS: ASPIRIN 81 MG ENTERIC TABLET PO (10:10)
--- NOTE | 2022-12-18 10:39 | PM.PNPUL ---
Progress Note: A&P Assessment and Plan (1) Chronic respiratory failure with hypoxia, on home oxygen therapy: Code(s): J96.11 - Chronic respiratory failure with hypoxia; Z99.81 - Dependence on supplemental oxygen Status: Acute Assessment and Plan: This 57-year-old man has had history of respiratory failure supplemental oxygen at home,? on treatment for possible COPD,? is currently hospitalized with? scrotal edema left lower extremity edema,? small ascites on abdominal ultrasound, left pleural effusion and pulmonary congestion likely related to congestive heart failure. Patient? has symptoms of daytime somnolence which are probably related to sleep disordered breathing.? In fact his? RN noticed oxyhemoglobin desaturation with some respiratory pauses while the patient was receiving supplemental oxygen. patient slept well last night while on generic BIPAP 12/8. has no new respiratory symptoms this a.m. and physical exam is unchanged. Plan: will continue with supplemental oxygen and also BiPAP support using 12/8? cm water pressure at night and prn, with close monitoring of? oxyhemoglobin saturation.? Will consider [facility] prior to DC home and also chest x-ray regarding right pleural effusion. Have ordered MRSA screening. (2) Combined systolic and diastolic congestive heart failure: Code(s): I50.40 - Unspecified combined systolic (congestive) and diastolic (congestive) heart failure Status: Chronic (3) Pleural effusion: Code(s): J90 - Pleural effusion, not elsewhere classified Status: Acute (4) Chronic obstructive pulmonary disease: Code(s): J44.9 - Chronic obstructive pulmonary disease, unspecified Status: Chronic (5) Chronic kidney disease, stage IV (severe): Code(s): N18.4 - Chronic kidney disease, stage 4 (severe) Status: Chronic (6) CHF (congestive heart failure): Code(s): I50.9 - Heart failure, unspecified Status: Acute Subjective Date/time seen: 12/18/22 10:39 patient has no new respiratory symptoms. Slept well on BiPAP last night. Remaining on supplemental oxygen via nasal cannula. Diuresing well on IV Lasix. Has not been out of bed yet. Review of Systems Review of Systems: All systems reviewed & are unremarkable except as noted in HPI and below ( HPI and below) Exam Narrative: GENERAL APPEARANCE: Well developed, well nourished, alert and cooperative, and appears to be in mild respiratory distress while on supplemental oxygen via nasal cannula SKIN: Inspection of the skin reveals superficial ulceration in right lateral neck. HEENT: Sclerae anicteric and conjunctivae pink and moist. Extraocular movements were intact and pupils were equal. Dry oral mucosa NECK: Supple. There was no thyroid enlargement, and no tenderness, or masses were felt. CHEST: Normal AP diameter and normal contour without any kyphoscoliosis. LUNGS: Auscultation of the lungs revealed decreased breath sounds at right base posteriorly and crackles at bases bilaterally, no wheezing CARDIAC: There was a regular rate and rhythm without any murmurs, gallops, rubs. ABDOMEN: Soft and nontender with normal bowel sounds. There was no organomegaly. LYMPH NODES: No lymphadenopathy was appreciated in the neck. EXTREMITIES: No cyanosis, clubbing; BKA on the right, trace pedal edema left lower extremity NEUROLOGIC: Alert and oriented x 3. Normal affect. Objective Data Vital Signs Vital Signs: Vital Signs - 24 hr 12/17/22 12:00 12/17/22 12:00 12/17/22 12:52 Temperature 36.6 C Pulse Rate 86 89 Respiratory Rate 21 H Blood Pressure 179/71 H Pulse Oximetry 96 92 Oxygen Delivery Nasal Cannula Oxygen Flow Rate 4 Fraction of Inspired Oxygen 12/17/22 14:00 12/17/22 16:00 12/17/22 16:38 Temperature 36.7 C Pulse Rate 81 126 H Respiratory Rate 22 H Blood Pressure 173/87 H Pulse Oximetry 97 94 Oxygen Delivery Nasal Cannula Oxygen Flow Rate 4
--- NOTE | 2022-12-18 11:16 | PM.PNCARD ---
Progress Note: A&P Assessment and Plan (1) CHF (congestive heart failure): Code(s): I50.9 - Heart failure, unspecified Status: Acute Assessment and Plan: Presented with dyspnea on exertion, abdominal distention and scrotal edema. He has RV dysfunction and diastolic heart failure. Echo with normal LVSF, EF 50-55%, mild TR, no other significant valve pathology. Diuresis started with Lasix 40mg IV BID. Accurate intake and output Daily weights Low Na diet CHF counseling - bar assistant c/s placed Consider transition to Entresto if cost effective. In the meantime continue metoprolol, losartan, isosorbide, hydralazine. 12/18: Has been diuresing 5-6 liters daily on Lasix 40mg IV BID. SCr increased from 1.9 to 2.0. To avoid overdiuresis, will back down on the lasix to 40mg IV QD. Unable to wean patient off of oxygen (not on home oxygen). Obtain CXR today. (2) Acute renal failure superimposed on chronic kidney disease: Code(s): N17.9 - Acute kidney failure, unspecified; N18.9 - Chronic kidney disease, unspecified Status: Acute Assessment and Plan: Will follow renal function (3) Hypertension associated with diabetes: Code(s): E11.59 - Type 2 diabetes mellitus with other circulatory complications; I15.2 - Hypertension secondary to endocrine disorders Status: Acute Assessment and Plan: Above goal. Increased dose of Hydralazine given uncontrolled blood pressure readings. Now better. (4) Paroxysmal atrial fibrillation: Code(s): I48.0 - Paroxysmal atrial fibrillation Status: Chronic Assessment and Plan: On anticoagulation. Continue beta alexandra for rate control. (5) Chronic anticoagulation: Code(s): Z79.01 - terminal clerk (current) use of anticoagulants Status: Chronic Assessment and Plan: Continue Eliquis (6) Combined systolic and diastolic congestive heart failure: Code(s): I50.40 - Unspecified combined systolic (congestive) and diastolic (congestive) heart failure Status: Chronic Assessment and Plan: As detailed above (7) Coronary artery disease: Code(s): I25.10 - Atherosclerotic heart disease of [place] coronary artery without angina pectoris Status: Acute Assessment and Plan: Elevated troponins are noted these are not related to acute plaque rupture. Subjective Date/time seen: 12/18/22 11:16 Interval history: Reason for visit: Decompensated heart failure HPI: Patient is a 57-year-old male who has a history of coronary disease.? Details are not known.? He follows with [facility].? He has had progressive lower extremity and scrotal edema as well as worsening shortness of breath over the past several months.? Symptoms worsened to the point that his testicles and foreskin were swollen and painful and decided to come to the hospital for further evaluation.? He was started on IV diuretics and was found to be in volume overload and is already feeling a little bit better with less swelling and less shortness of breath.? He does describe some orthopnea.? No chest pain.? No syncope, presyncope, paroxysmal nocturnal dyspnea.? Does have occasional palpitations.? He was recently admitted to this hospital for treatment of cellulitis. Date of service 12/16: Continues to complain of shortness of breath today.? Does not think his breathing has improved any since yesterday.? Has shortness of breath with minimal exertion.? No chest pain, palpitations. Date of service 12/17: Feeling better. No new complaints this morning. Date of service 12/18: Diuresing well. No shortness of breath. Lower extremity edema significantly improved. Per discussion with RN, cannot wean off oxygen. Patient was not on home oxygen. Desats quickly without supplemental oxygen. Review of Systems Review of Systems: 8 point ROS obtained. Negative, unless stated in HPI. Exam Narrative: Awake alert oriented appears stated age Const: G
[2022-12-18 11:50] LABS: Glucose Point of Care 199 mg/dl (65-105)
[2022-12-18] MEDS: polyethylene glycoL 3350 17 GM POWD.PACK PO (12:47)
[2022-12-18] MEDS: FERROUS SULFATE 324 MG TABLET PO ×2 (12:47→16:14)
--- NOTE | 2022-12-18 14:26 | PM.IMPN ---
Progress Note: A&P Assessment and Plan (1) CHF (congestive heart failure): Code(s): I50.9 - Heart failure, unspecified Status: Acute Assessment and Plan: Continue diuresis (2) Acute renal failure superimposed on chronic kidney disease: Code(s): N17.9 - Acute kidney failure, unspecified; N18.9 - Chronic kidney disease, unspecified Status: Acute Assessment and Plan: Creatinine 12/18 2.0, 12/17 1.9 (3) HTN (hypertension): Code(s): I10 - Essential (primary) hypertension Status: Acute Assessment and Plan: Blood pressures improving with diuresis (4) Chronic anticoagulation: Code(s): Z79.01 - termite renewal inspector (current) use of anticoagulants Status: Chronic Assessment and Plan: Continue (5) Anemia, chronic disease: Code(s): D63.8 - Anemia in other chronic diseases classified elsewhere Status: Acute Assessment and Plan: Stable, follow-up (6) Diabetes: Code(s): E11.9 - Type 2 diabetes mellitus without complications Status: Acute Assessment and Plan: Blood sugars reviewed and adequately controlled (7) Paroxysmal atrial fibrillation: Code(s): I48.0 - Paroxysmal atrial fibrillation Status: Chronic Assessment and Plan: Sinus rhythm and anticoagulated 12/17 transferred to medical floor (8) Coronary artery disease: Code(s): I25.10 - Atherosclerotic heart disease of [place] coronary artery without angina pectoris Status: Acute (9) Conjunctivitis unspecified: Code(s): H10.9 - Unspecified conjunctivitis Status: Acute Assessment and Plan: [place] ophthalmic Subjective Date/time seen: 12/18/22 14:26 Interval history: Mild drainage both eyes, thick and green. Mild irritation. Floater. No other visual change. Doing well with his CPAP at 12/8 with 35% FiO2. Tolerating diet. Denied chest pain. Denied shortness of breath at rest. No swelling. No GI or complaints. No abnormal bleeding. Review of Systems Review of Systems: All systems reviewed & are unremarkable except as noted in HPI and below Exam Narrative: General alert and in no acute distress ENT: moderate amount of puruent discharge OS, mild OD, mild palpebral erythema Neck without JVD Chest with coarse breath sounds Heart rate regular with no audible murmur Extremities no left foot edema, right with BKA and nonpitting edema of stump Abdomen protuberant but soft nontender with good bowel sounds no palpable masses Musculoskeletal right BKA as noted Neurologic cranial nerves symmetric to visual inspection Objective Data Vital Signs Vital Signs: Vital Signs - 24 hr 12/17/22 16:00 12/17/22 16:38 12/17/22 16:00 Temperature 98.0 F Pulse Rate 126 H 127 H Respiratory Rate 22 H Blood Pressure 173/87 H Pulse Oximetry 97 94 Oxygen Delivery Nasal Cannula Oxygen Flow Rate 4 Fraction of Inspired Oxygen 12/17/22 18:00 12/17/22 18:53 12/17/22 20:00 Temperature 98.2 F Pulse Rate 128 H 129 H Respiratory Rate 20 Blood Pressure 152/88 H 177/92 H Pulse Oximetry 95 Oxygen Delivery Oxygen Flow Rate Fraction of Inspired Oxygen 12/17/22 21:01 12/17/22 21:03 12/17/22 22:40 Temperature Pulse Rate 130 H 130 H 117 H Respiratory Rate Blood Pressure Pulse Oximetry Oxygen Delivery Oxygen Flow Rate Fraction of Inspired Oxygen 12/17/22 23:04 12/17/22 20:00 12/18/22 00:00 Temperature 99.1 F Pulse Rate 113 H Respiratory Rate 27 H Blood Pressure 158/89 H Pulse Oximetry 97 97 99 Oxygen Delivery Nasal Cannula BiPAP Oxygen Flow Rate 4 Fraction of Inspired Oxygen 35 12/17/22 20:15 12/18/22 03:57 12/17/22 20:00 Temperature 98.3 F Pulse Rate 78 91 129 H Respiratory Rate 16 24 H Blood Pressure 139/73 Pulse Oximetry 98 Oxygen Delivery Oxygen Flow Rate Fraction of Inspired Oxygen 12/17/22 22:00 12/18/22 0
[2022-12-18] MEDS: POLYMYXIN/TRIMETHOPRIM OPHTH 10 ML DROPS 1 DROP EACH EYE ×2 (16:12→20:36)
[2022-12-18 16:48] LABS: Glucose Point of Care 164 mg/dl (65-105)
[2022-12-18 20:19] LABS: Glucose Point of Care 222 mg/dl (65-105)
[2022-12-18] MEDS: traZODone HCL 50 MG TABLET 100 MG PO (20:35)
[2022-12-18] MEDS: ATORVASTATIN 40 MG TABLET PO (20:36)
[2022-12-18] MEDS: AMITRIPTYLINE HCL 25 MG TABLET 50 MG PO (20:36)
[2022-12-18] MEDS: INSULIN GLARGINE (*BKC) 100 UNITS/ML 10 UNITS SUB-Q (20:36)
[2022-12-19] VITALS (22 sets, daily range): BP systolic 130–144; BP diastolic 64–89; PULSE 83–110; RESP 20–28; TEMP 36.3–37; O2SAT 92–99
[2022-12-19] MEDS: hydrALAZINE HCL 50 MG TABLET 100 MG PO ×3 (06:43→21:09)
[2022-12-19] MEDS: LEVOTHYROXINE SODIUM 100 MCG TABLET PO (06:43)
[2022-12-19] MEDS: GABAPENTIN 100 MG CAPSULE PO ×3 (06:43→21:09)
[2022-12-19] MEDS: traMADol HCL (*CRX) 50 MG TABLET PO ×3 (06:44→20:52)
[2022-12-19] MEDS: METOCLOPRAMIDE HCL 5 MG TABLET PO ×3 (06:45→17:02)
[2022-12-19 07:02] LABS: Hematocrit 26.2 % (42.0-52.0); Hemoglobin 7.5 g/dL (14.0-18.0); Mean Corpuscular HGB Conc 28.6 g/dl (32-36); Mean Corpuscular Hemoglobin 24.3 pg (26-34); Mean Corpuscular Volume 84.8 fl (80-100); Mean Platelet Volume 10.7 fl (7.4-10.4); Platelet Count Result 147 k/mm3 (150-375); Red Blood Count 3.09 M/mm3 (4.6-6.20); Red Cell Distribution Width 17.5 % (11.5-14.5); White Blood Count 8.4 K/mm3 (4.5-10.0)
[2022-12-19 07:11] LABS: Albumin Level 3.5 g/dL (3.5-5.1); Anion Gap 5 mmol/L (8-16); Blood Urea Nitrogen 65 mg/dL (9-20); Calcium 8.6 mg/dL (8.4-10.2); Carbon Dioxide 36 mmol/L (22-30); Chloride 98 mmol/L (98-107); Estimated CRCL calculation 39 ml/min; Estimated Glomerular Filt Rate 28; Glucose 134 mg/dL (65-110); Phosphorus 4.2 mg/dL (2.5-4.5); Potassium 4.3 mmol/L (3.4-5.0); Sodium 139 mmol/L (137-145)
[2022-12-19] MEDS: FLUTICASONE PROP 110 MCG INHALER 12 GM (*SP) 1 PUFF INHALATION (07:30)
[2022-12-19] MEDS: UMECLIDINIUM/VILANTEROL 62.5-25 MCG ELLIPTA 1 PUFF INHALATION (07:30)
[2022-12-19 08:14] LABS: Glucose Point of Care 160 mg/dl (65-105)
[2022-12-19 08:29] LABS: NT Pro B Type Natriuretic Pept 20400 pg/mL (19.9-100)
--- NOTE | 2022-12-19 09:05 | PM.PNCARD ---
Progress Note: A&P Assessment and Plan (1) CHF (congestive heart failure): Code(s): I50.9 - Heart failure, unspecified <JACQUES Arcos - Last Filed: 12/19/22 10:34> Status: Acute <JACQUES Arcos - Last Filed: 12/19/22 10:34> Assessment and Plan: Presented with dyspnea on exertion, abdominal distention and scrotal edema. He has RV dysfunction and diastolic heart failure. Echo with normal LVSF, EF 50-55%, mild TR, no other significant valve pathology. Diuresis started with Lasix 40mg IV BID. Accurate intake and output Daily weights Low Na diet CHF counseling - lemon picker c/s placed Consider transition to Entresto if cost effective. In the meantime continue metoprolol, losartan, isosorbide, hydralazine. SCr 2.4 today (2.0). Will shift furosemide to p.o. today to avoid worsening renal function. Continue daily BMP PT/OT <JACQUES Arcos - Last Filed: 12/19/22 10:34> (2) Acute renal failure superimposed on chronic kidney disease: Code(s): N17.9 - Acute kidney failure, unspecified; N18.9 - Chronic kidney disease, unspecified <JACQUES Arcos - Last Filed: 12/19/22 10:34> Status: Acute <JACQUES Arcos - Last Filed: 12/19/22 10:34> Assessment and Plan: Will follow renal function <JACQUES Arcos - Last Filed: 12/19/22 10:34> (3) Hypertension associated with diabetes: Code(s): E11.59 - Type 2 diabetes mellitus with other circulatory complications; I15.2 - Hypertension secondary to endocrine disorders <JACQUES Arcos - Last Filed: 12/19/22 10:34> Status: Acute <JACQUES Arcos - Last Filed: 12/19/22 10:34> Assessment and Plan: Above goal. Increased dose of Hydralazine given uncontrolled blood pressure readings. Now better. <JACQUES Arcos - Last Filed: 12/19/22 10:34> (4) Paroxysmal atrial fibrillation: Code(s): I48.0 - Paroxysmal atrial fibrillation <JACQUES Arcos - Last Filed: 12/19/22 10:34> Status: Chronic <JACQUES Arcos - Last Filed: 12/19/22 10:34> Assessment and Plan: On anticoagulation. Continue beta alexandra for rate control. <JACQUES Arcos - Last Filed: 12/19/22 10:34> (5) Chronic anticoagulation: Code(s): Z79.01 - assisted (current) use of anticoagulants <JACQUES Arcos - Last Filed: 12/19/22 10:34> Status: Chronic <JACQUES Arcos - Last Filed: 12/19/22 10:34> Assessment and Plan: Continue Eliquis <JACQUES Arcos - Last Filed: 12/19/22 10:34> (6) Combined systolic and diastolic congestive heart failure: Code(s): I50.40 - Unspecified combined systolic (congestive) and diastolic (congestive) heart failure <JACQUES Arcos - Last Filed: 12/19/22 10:34> Status: Chronic <JACQUES Arcos - Last Filed: 12/19/22 10:34> Assessment and Plan: As detailed above <JACQUES Arcos - Last Filed: 12/19/22 10:34> (7) Coronary artery disease: Code(s): I25.10 - Atherosclerotic heart disease of [place] coronary artery without angina pectoris <JACQUES Arcos - Last Filed: 12/19/22 10:34> Status: Acute <JACQUES Arcos - Last Filed: 12/19/22 10:34> Assessment and Plan: Elevated troponins are noted these are not related to acute plaque rupture. <JACQUES Arcos - Last Filed: 12/19/22 10:34> Assessment and Plan: Attending addendum: I agree with the above documentation and plan of care as outlined. <Jeff Davis MD - Last Filed: 12/19/22 15:15> Subjective Date/time seen: 12/19/22 09:05 <JACQUES Arcos - Last Filed: 12/19/22 10:34> Interval history: Reason for visit: Decompensated heart failure HPI: Patient is a 57-year-old male who has a history of coronary disease.? Details are not known.? He follows with [facility].? He has had progressive lower e
[2022-12-19] MEDS: polyethylene glycoL 3350 17 GM POWD.PACK PO (09:24)
[2022-12-19] MEDS: busPIRone HCL 5 MG TABLET PO ×3 (09:24→17:02)
[2022-12-19] MEDS: METOPROLOL TARTRATE 50 MG TAB PO ×2 (09:25→20:45)
[2022-12-19] MEDS: ASCORBIC ACID 500 MG TABLET PO (09:25)
[2022-12-19] MEDS: busPIRone HCL 10 MG TABLET PO ×3 (09:25→17:02)
[2022-12-19] MEDS: FAMOTIDINE 20 MG TABLET PO ×2 (09:25→20:45)
[2022-12-19] MEDS: CLOPIDOGREL BISULFATE 75 MG TABLET PO (09:26)
[2022-12-19] MEDS: PYRIDOXINE HCL 50 MG TABLET PO (09:26)
[2022-12-19] MEDS: APIXABAN 5 MG TABLET PO (09:26)
[2022-12-19] MEDS: ISOSORBIDE MONONITRATE 30 MG TAB.ER.24H PO (09:26)
[2022-12-19] MEDS: POLYMYXIN/TRIMETHOPRIM OPHTH 10 ML DROPS 1 DROP EACH EYE ×4 (09:26→20:45)
[2022-12-19] MEDS: FLUTICASONE PROPIONATE 0.05% NA SPR 16 GM BTL (*BKC) 1 SPRAY NASAL ×2 (09:27→20:45)
[2022-12-19] MEDS: TOLNAFTATE 1% POWDER 45 GM BTL 1 APPLIC TOPICAL ×2 (09:28→20:46)
[2022-12-19] MEDS: ASPIRIN 81 MG ENTERIC TABLET PO (09:56)
--- NOTE | 2022-12-19 10:04 | PM.PNPUL ---
Progress Note: A&P Assessment and Plan (1) CHF (congestive heart failure): Code(s): I50.9 - Heart failure, unspecified Status: Acute Assessment and Plan: Patient with history of CAD s/p CABG, Afib on eliquis, is currently hospitalized with? scrotal edema left lower extremity edema,? small ascites on abdominal ultrasound, left pleural effusion and pulmonary congestion likely related to congestive heart failure.? Echocardiogram 427 with normal LV systolic function, EF 50-55%, no significant valvular abnormality, mildly enlarged right ventricle with decreased systolic function, mildly enlarged left atrium and right atrium, RVSP 42. Patient has been aggressively diuresed per Cardiology and hospitalist team. Scrotal edema has improved. Pedal edema has improved. BNP is elevated and his creatinine today is 2.4 on Lasix 40 IV q.day, Plavix 75 a day, apixaban 5 q.12, statin, Imdur 30 q.day, hydralazine 100 Q 8 metoprolol 50 q.12 per Cardiology. Fluid overload is contributing to hypoxemia and hypoxemia appears to improve be improving now that he has been aggressively diuresed. (2) Chronic obstructive pulmonary disease: Code(s): J44.9 - Chronic obstructive pulmonary disease, unspecified Status: Chronic Assessment and Plan: Patient carries a diagnosis of COPD. He has minimal tobacco use and told me he never smokes although smoking for 4 years is documented in the chart. he was exposed to secondhand smoke from both of his parents and from living partners until 5 years ago. He also has a history of smoking 1 marijuana cigarette a day from age [age] and smoking cocaine daily from age [age]. I have no PFTs. Patient presented with a white blood cell count of 5.1 with 1.4% eosinophils=71/uL. 12/19/22: the patient may have COPD and will need outpatient PFTs to help confirm this diagnosis. Plan:I will order CT of the chest without contrast to assess for bullous emphysema and or substance abuse related interstitial lung disease. The patient has been maintained at home on Anoro Ellipta and is currently on Anoro Ellipta and Flovent 110 1 puff b.i.d.. I will discontinue the Flovent today. (3) Respiratory failure with hypoxia: Code(s): J96.91 - Respiratory failure, unspecified with hypoxia Status: Acute Assessment and Plan: The patient tells me he has not been on oxygen at home although the chart indicates otherwise. Patient?presented with fluid overload and also has symptoms of daytime somnolence which are probably related to sleep disordered breathing.? In fact his?RN noticed oxyhemoglobin desaturation with some respiratory pauses while the patient was receiving supplemental oxygen. The patient has no evidence of hypercarbic respiratory failure with a blood gas on 12/16/2022 of 7.43/44/49 on room air and previous blood gas on 11/23/2022 of 7.38/43/44 on room air. 12/19 Etiology of hypoxic respiratory failure includes fluid overload, possible COPD, possible interstitial lung disease from prior substance use, obesity with atelectasis, and sleep-related breathing disorder. When I entered the room today the patient was on 4 L nasal cannula saturation 95%. I decreased him to 2 L nasal cannula saturations were 91%. Plan: Agree with aggressive diuresis as tolerated by his cardiac and renal systems per [facility] [employer] and hospitalist teams. Patient has no wheezing and I do not feel COPD exacerbation or pneumonia are contributing to hypoxemic respiratory failure. given the high likelihood of a sleep-related breathing disorder patient was empirically started on BiPAP rate of 12 and pressures 12/8 while he was in the hospital. As mentioned above CT scan of the chest today. Patient will need an outpatient sleep study prior to initiation of outpatient CPAP or BiPAP. Will obtain an overnight oximetry on 4 L nasal cannula to assess his oxygen needs on discharge without positive airway pressure. Will follow with [facility]
--- NOTE | 2022-12-19 11:51 | PM.IMPN ---
Progress Note: A&P Assessment and Plan (1) CHF (congestive heart failure): Code(s): I50.9 - Heart failure, unspecified Status: Acute Assessment and Plan: Continue diuresis. Creatinine worsening so Lasix was to p.o. by Cardiology. Monitor BMP (2) Respiratory failure with hypoxia: Code(s): J96.91 - Respiratory failure, unspecified with hypoxia Status: Acute Assessment and Plan: Appreciate pulmonary input. CT chest without contrast ordered to assess for bullous emphysema and or substance abuse related interstitial lung disease. Patient will likely need outpatient sleep study as well as pulmonary function tests (3) Acute renal failure superimposed on chronic kidney disease: Code(s): N17.9 - Acute kidney failure, unspecified; N18.9 - Chronic kidney disease, unspecified Status: Acute Assessment and Plan: Creatinine worsening. Lasix switched to p.o.. Monitor BMP (4) HTN (hypertension): Code(s): I10 - Essential (primary) hypertension Status: Acute Assessment and Plan: Blood pressures improving with diuresis (5) Chronic anticoagulation: Code(s): Z79.01 - [employer] (current) use of anticoagulants Status: Chronic Assessment and Plan: Continue (6) Anemia, chronic disease: Code(s): D63.8 - Anemia in other chronic diseases classified elsewhere Status: Acute Assessment and Plan: Stable, follow-up (7) Diabetes: Code(s): E11.9 - Type 2 diabetes mellitus without complications Status: Acute Assessment and Plan: Blood sugars reviewed and adequately controlled (8) Paroxysmal atrial fibrillation: Code(s): I48.0 - Paroxysmal atrial fibrillation Status: Chronic Assessment and Plan: Sinus rhythm and anticoagulated 12/17 transferred to medical floor (9) Coronary artery disease: Code(s): I25.10 - Atherosclerotic heart disease of [place] coronary artery without angina pectoris Status: Acute Subjective Date/time seen: 12/19/22 11:51 Interval history: Breathing better Review of Systems Review of Systems: All systems reviewed & are unremarkable except as noted in HPI and below Exam Narrative: General alert and in no acute distress ENT: moderate amount of puruent discharge OS, mild OD, mild palpebral erythema Neck without JVD Chest with coarse breath sounds Heart rate regular with no audible murmur Extremities no left foot edema, right with BKA and nonpitting edema of stump Abdomen protuberant but soft nontender with good bowel sounds no palpable masses Musculoskeletal right BKA as noted Neurologic cranial nerves symmetric to visual inspection Objective Data Vital Signs Vital Signs: Vital Signs - 24 hr 12/18/22 12:00 12/18/22 12:17 12/18/22 17:01 Temperature 97.5 F L 98.1 F Pulse Rate 85 100 Respiratory Rate 24 H 24 H Blood Pressure 141/90 H 148/99 H Pulse Oximetry 96 100 93 Oxygen Delivery Nasal Cannula Oxygen Flow Rate 4 Fraction of Inspired Oxygen 12/18/22 12:00 12/18/22 14:00 12/18/22 16:00 Temperature Pulse Rate 90 93 95 Respiratory Rate Blood Pressure Pulse Oximetry Oxygen Delivery Oxygen Flow Rate Fraction of Inspired Oxygen 12/18/22 16:00 12/18/22 20:35 12/18/22 20:00 Temperature 98.6 F Pulse Rate 110 H 104 H Respiratory Rate 24 H Blood Pressure 169/82 H Pulse Oximetry 96 96 Oxygen Delivery Nasal Cannula Oxygen Flow Rate 4 Fraction of Inspired Oxygen 12/18/22 21:07 12/18/22 21:08 12/18/22 22:37 Temperature Pulse Rate 99 99 98 Respiratory Rate 21 H 21 H 20 Blood Pressure Pulse Oximetry 97 97 99 Oxygen Delivery BiPAP BiPAP BiPAP Oxygen Flow Rate Fraction of Inspired Oxygen 35 12/18/22 23:01 12/18/22 20:00 12/18/22 20:00 Temperature 97.9 F Pulse Rate 102 H 103 H Respiratory Rate 20 Blood Pressure 155/84 H Pulse Oximetry 100 95 Oxygen De
[2022-12-19 13:26] LABS: Glucose Point of Care 150 mg/dl (65-105)
[2022-12-19] MEDS: FERROUS SULFATE 324 MG TABLET PO ×2 (13:42→17:03)
[2022-12-19] MEDS: FUROSEMIDE 40 MG TABLET PO (17:02)
[2022-12-19 17:35] LABS: Glucose Point of Care 158 mg/dl (65-105)
[2022-12-19 20:06] LABS: Glucose Point of Care 145 mg/dl (65-105)
[2022-12-19] MEDS: ATORVASTATIN 40 MG TABLET PO (20:44)
[2022-12-19] MEDS: AMITRIPTYLINE HCL 25 MG TABLET 50 MG PO (20:44)
[2022-12-19] MEDS: traZODone HCL 50 MG TABLET 100 MG PO (20:45)
[2022-12-19] MEDS: INSULIN GLARGINE (*BKC) 100 UNITS/ML 10 UNITS SUB-Q (20:51)
[2022-12-20] VITALS (22 sets, daily range): BP systolic 124–146; BP diastolic 61–90; PULSE 78–115; RESP 18–25; TEMP 36.4–37.1; O2SAT 90–100
[2022-12-20 05:10] LABS: Anion Gap 7 mmol/L (8-16); Blood Urea Nitrogen 75 mg/dL (9-20); Calcium 8.4 mg/dL (8.4-10.2); Carbon Dioxide 32 mmol/L (22-30); Chloride 98 mmol/L (98-107); Estimated CRCL calculation 38 ml/min; Estimated Glomerular Filt Rate 27; Glucose 118 mg/dL (65-110); INR 1.5; Lactate Dehydrogenase 196 U/L (120-246); Partial Thromboplastin Time 36.3 SECONDS (22.3-36.8); Potassium 4.4 mmol/L (3.4-5.0); Prothrombin Time 19.5 Seconds (11.1-14.7); Sodium 137 mmol/L (137-145)
[2022-12-20] MEDS: METOCLOPRAMIDE HCL 5 MG TABLET PO ×3 (06:35→17:42)
[2022-12-20] MEDS: hydrALAZINE HCL 50 MG TABLET 100 MG PO ×3 (06:35→21:20)
[2022-12-20] MEDS: GABAPENTIN 100 MG CAPSULE PO ×3 (06:35→21:22)
[2022-12-20] MEDS: LEVOTHYROXINE SODIUM 100 MCG TABLET PO (06:35)
[2022-12-20 07:39] LABS: Glucose Point of Care 129 mg/dl (65-105)
[2022-12-20] MEDS: UMECLIDINIUM/VILANTEROL 62.5-25 MCG ELLIPTA 1 PUFF INHALATION (08:45)
[2022-12-20] MEDS: busPIRone HCL 5 MG TABLET PO ×3 (08:48→17:42)
[2022-12-20] MEDS: FAMOTIDINE 20 MG TABLET PO ×2 (08:48→21:22)
[2022-12-20] MEDS: busPIRone HCL 10 MG TABLET PO ×3 (08:48→17:42)
[2022-12-20] MEDS: FLUTICASONE PROPIONATE 0.05% NA SPR 16 GM BTL (*BKC) 1 SPRAY NASAL ×2 (08:49→21:24)
[2022-12-20] MEDS: POLYMYXIN/TRIMETHOPRIM OPHTH 10 ML DROPS 1 DROP EACH EYE ×4 (08:49→21:19)
[2022-12-20] MEDS: TOLNAFTATE 1% POWDER 45 GM BTL 1 APPLIC TOPICAL ×2 (08:49→21:19)
[2022-12-20] MEDS: FUROSEMIDE 40 MG TABLET PO (08:50)
[2022-12-20] MEDS: polyethylene glycoL 3350 17 GM POWD.PACK PO (08:50)
[2022-12-20] MEDS: ISOSORBIDE MONONITRATE 30 MG TAB.ER.24H PO (08:51)
[2022-12-20] MEDS: ASCORBIC ACID 500 MG TABLET PO (08:51)
[2022-12-20] MEDS: PYRIDOXINE HCL 50 MG TABLET PO (08:53)
--- NOTE | 2022-12-20 09:02 | PM.PNPUL ---
Progress Note: A&P Assessment and Plan (1) CHF (congestive heart failure): Code(s): I50.9 - Heart failure, unspecified Status: Acute Assessment and Plan: Patient with history of CAD s/p CABG, Afib on eliquis, is currently hospitalized with? scrotal edema left lower extremity edema,? small ascites on abdominal ultrasound, left pleural effusion and pulmonary congestion likely related to congestive heart failure.? Echocardiogram 427 with normal LV systolic function, EF 50-55%, no significant valvular abnormality, mildly enlarged right ventricle with decreased systolic function, mildly enlarged left atrium and right atrium, RVSP 42. 5/ Patient has been aggressively diuresed per Cardiology and hospitalist team. Scrotal edema has improved. Pedal edema has improved. BNP is elevated and his creatinine today is 2.4 on Lasix 40 IV q.day, Plavix 75 a day, apixaban 5 q.12, statin, Imdur 30 q.day, hydralazine 100 Q 8 metoprolol 50 q.12 per Cardiology. Fluid overload is contributing to hypoxemia and hypoxemia appears to improve be improving now that he has been aggressively diuresed. CT of the chest yesterday with mild pulmonary edema, moderate right and small left pleural effusion. Thoracentesis of the right has been ordered. I have held Eliquis and Plavix so that this procedure can be performed. 12/20 The patient tells me he wore his machine last night and is breathing better than when he arrived but still has some shortness of breath. He has not been out of bed. creatinine 2.5 on Lasix 40 p.o. b.i.d.. Patient being diuresed per Cardiology and hospitalist teams. CT of the chest yesterday with mild pulmonary edema, moderate right and small left pleural effusion. Thoracentesis of the right has been ordered. I have held Eliquis and Plavix so that this procedure can be performed, will need cardiology input regarding bridging if needed. (2) Chronic obstructive pulmonary disease: Code(s): J44.9 - Chronic obstructive pulmonary disease, unspecified Status: Chronic Assessment and Plan: Patient carries a diagnosis of COPD. He has minimal tobacco use and told me he never smokes although smoking for 4 years is documented in the chart. he was exposed to secondhand smoke from both of his parents and from living partners until 5 years ago. He also has a history of smoking 1 marijuana cigarette a day from age [age] and smoking cocaine daily from age [age]. I have no PFTs. Patient presented with a white blood cell count of 5.1 with 1.4% eosinophils=71/uL. 12/19/22: the patient may have COPD and will need outpatient PFTs to help confirm this diagnosis. Plan:I will order CT of the chest without contrast to assess for bullous emphysema and or substance abuse related interstitial lung disease. The patient has been maintained at home on Anoro Ellipta and is currently on Anoro Ellipta and Flovent 110 1 puff b.i.d.. I will discontinue the Flovent today. 12/20 patient has no wheezing on Anoro Ellipta 62.5-25 at 1 puff q.day. Will continue. (3) Respiratory failure with hypoxia: Code(s): J96.91 - Respiratory failure, unspecified with hypoxia Status: Acute Assessment and Plan: The patient tells me he has not been on oxygen at home although the chart indicates otherwise. Patient?presented with fluid overload and also has symptoms of daytime somnolence which are probably related to sleep disordered breathing.? In fact his?RN noticed oxyhemoglobin desaturation with some respiratory pauses while the patient was receiving supplemental oxygen. The patient has no evidence of hypercarbic respiratory failure with a blood gas on 12/16/2022 of 7.43/44/49 on room air and previous blood gas on 11/23/2022 of 7.38/43/44 on room air. 12/19 Etiology of hypoxic respiratory failure includes fluid overload, possible COPD, possible interstitial lung disease from prior substance use, obesity with atelectasis, and sleep-relate
--- NOTE | 2022-12-20 11:19 | PM.IMPN ---
Progress Note: A&P Assessment and Plan (1) CHF (congestive heart failure): Code(s): I50.9 - Heart failure, unspecified Status: Acute Assessment and Plan: Continue diuresis. Creatinine worsening so Lasix was to p.o. by Cardiology. Monitor BMP (2) Respiratory failure with hypoxia: Code(s): J96.91 - Respiratory failure, unspecified with hypoxia Status: Acute Assessment and Plan: Appreciate pulmonary input. CT chest without contrast shows bilateral pleural effusion. Thoracentesis ordered per Pulmonary. Hold Eliquis and Plavix for thoracentesis Patient will likely need outpatient sleep study as well as pulmonary function tests (3) Acute renal failure superimposed on chronic kidney disease: Code(s): N17.9 - Acute kidney failure, unspecified; N18.9 - Chronic kidney disease, unspecified Status: Acute Assessment and Plan: Creatinine worsening. Lasix switched to p.o.. Monitor BMP (4) HTN (hypertension): Code(s): I10 - Essential (primary) hypertension Status: Acute Assessment and Plan: Blood pressures improving with diuresis (5) Chronic anticoagulation: Code(s): Z79.01 - care home (current) use of anticoagulants Status: Chronic Assessment and Plan: Continue (6) Anemia, chronic disease: Code(s): D63.8 - Anemia in other chronic diseases classified elsewhere Status: Acute Assessment and Plan: Stable, follow-up (7) Diabetes: Code(s): E11.9 - Type 2 diabetes mellitus without complications Status: Acute Assessment and Plan: Blood sugars reviewed and adequately controlled (8) Paroxysmal atrial fibrillation: Code(s): I48.0 - Paroxysmal atrial fibrillation Status: Chronic Assessment and Plan: Sinus rhythm and anticoagulated 12/17 transferred to medical floor (9) Coronary artery disease: Code(s): I25.10 - Atherosclerotic heart disease of [place] coronary artery without angina pectoris Status: Acute Subjective Date/time seen: 12/20/22 11:19 Interval history: Stable. Review of Systems Review of Systems: All systems reviewed & are unremarkable except as noted in HPI and below Exam Narrative: General alert and in no acute distress ENT: moderate amount of puruent discharge OS, mild OD, mild palpebral erythema Neck without JVD Chest with coarse breath sounds Heart rate regular with no audible murmur Extremities no left foot edema, right with BKA and nonpitting edema of stump Abdomen protuberant but soft nontender with good bowel sounds no palpable masses Musculoskeletal right BKA as noted Neurologic cranial nerves symmetric to visual inspection Objective Data Vital Signs Vital Signs: Vital Signs - 24 hr 12/19/22 12:00 12/19/22 12:39 12/19/22 13:46 Temperature 97.6 F Pulse Rate 96 96 Respiratory Rate 28 H Blood Pressure 133/78 Pulse Oximetry 94 Oxygen Delivery Nasal Cannula Oxygen Flow Rate 2 Fraction of Inspired Oxygen 12/19/22 16:39 12/19/22 12:00 12/19/22 16:00 Temperature 98.6 F Pulse Rate 95 Respiratory Rate 20 Blood Pressure 144/81 H Pulse Oximetry 95 94 95 Oxygen Delivery Nasal Cannula Nasal Cannula Oxygen Flow Rate 2 2 Fraction of Inspired Oxygen 12/19/22 14:00 12/19/22 16:00 12/19/22 18:00 Temperature Pulse Rate 95 87 96 Respiratory Rate Blood Pressure Pulse Oximetry Oxygen Delivery Oxygen Flow Rate Fraction of Inspired Oxygen 12/19/22 20:00 12/19/22 20:45 12/19/22 21:30 Temperature 97.3 F L Pulse Rate 96 96 95 Respiratory Rate 24 H 28 H Blood Pressure 142/68 H Pulse Oximetry 94 97 Oxygen Delivery BiPAP Oxygen Flow Rate Fraction of Inspired Oxygen 12/19/22 21:20 12/19/22 23:14 12/19/22 20:00 Temperature 97.7 F Pulse Rate 83 Respiratory Rate 24 H Blood Pressure 137/89 Pulse Oximetry 96 99 94 Oxygen Delivery Nasal Cannula
[2022-12-20] MEDS: FERROUS SULFATE 324 MG TABLET PO ×2 (12:19→17:43)
[2022-12-20 12:35] LABS: Glucose Point of Care 112 mg/dl (65-105)
[2022-12-20] MEDS: METOPROLOL TARTRATE 50 MG TAB PO ×2 (13:24→21:23)
--- NOTE | 2022-12-20 13:37 | PM.PNCARD ---
Progress Note: A&P Assessment and Plan (1) CHF (congestive heart failure): Code(s): I50.9 - Heart failure, unspecified Status: Acute Assessment and Plan: Presented with dyspnea on exertion, abdominal distention and scrotal edema. He has RV dysfunction and diastolic heart failure. Echo with normal LVSF, EF 50-55%, mild TR, no other significant valve pathology. Diuresis started with Lasix 40mg IV BID. Accurate intake and output Daily weights Low Na diet CHF counseling - spindle sander c/s placed Consider transition to Entresto if cost effective. In the meantime continue metoprolol, losartan, isosorbide, hydralazine. BUN/SCr 75/2.5 today (65/2.4). He was switched to p.o. furosemide yesterday. Hold lasix. C/s nephrology. PT/OT (2) Acute renal failure superimposed on chronic kidney disease: Code(s): N17.9 - Acute kidney failure, unspecified; N18.9 - Chronic kidney disease, unspecified Status: Acute Assessment and Plan: Worsening renal function, likely from diuresis. Will c/s nephrology. (3) Hypertension associated with diabetes: Code(s): E11.59 - Type 2 diabetes mellitus with other circulatory complications; I15.2 - Hypertension secondary to endocrine disorders Status: Acute Assessment and Plan: Above goal. Increased dose of Hydralazine given uncontrolled blood pressure readings. Now better. (4) Paroxysmal atrial fibrillation: Code(s): I48.0 - Paroxysmal atrial fibrillation Status: Chronic Assessment and Plan: On anticoagulation. Continue beta alexandra for rate control. (5) Chronic anticoagulation: Code(s): Z79.01 - skilled nursing (current) use of anticoagulants Status: Chronic Assessment and Plan: Continue Eliquis (6) Combined systolic and diastolic congestive heart failure: Code(s): I50.40 - Unspecified combined systolic (congestive) and diastolic (congestive) heart failure Status: Chronic Assessment and Plan: As detailed above (7) Coronary artery disease: Code(s): I25.10 - Atherosclerotic heart disease of [place] coronary artery without angina pectoris Status: Acute Assessment and Plan: Elevated troponins are noted these are not related to acute plaque rupture. Subjective Date/time seen: 12/20/22 13:37 Cardiology follow up for CHF Interval history: Reason for visit: Decompensated heart failure HPI: Patient is a 57-year-old male who has a history of coronary disease.? Details are not known.? He follows with [facility]? He has had progressive lower extremity and scrotal edema as well as worsening shortness of breath over the past several months.? Symptoms worsened to the point that his testicles and foreskin were swollen and painful and decided to come to the hospital for further evaluation.? He was started on IV diuretics and was found to be in volume overload and is already feeling a little bit better with less swelling and less shortness of breath.? He does describe some orthopnea.? No chest pain.? No syncope, presyncope, paroxysmal nocturnal dyspnea.? Does have occasional palpitations.? He was recently admitted to this hospital for treatment of cellulitis. Date of service 12/16: Continues to complain of shortness of breath today.? Does not think his breathing has improved any since yesterday.? Has shortness of breath with minimal exertion.? No chest pain, palpitations. Date of service 12/17: Feeling better. No new complaints this morning. Date of service 12/18: Diuresing well. No shortness of breath. Lower extremity edema significantly improved. Per discussion with RN, cannot wean off oxygen. Patient was not on home oxygen. Desats quickly without supplemental oxygen. Date of service 12/19/2022: Complaining of pain in his neck, back, and buttocks from lying in bed for several days. He continues to become short of breath with minimal activity such as moving around in bed. Unable to wean O2.
--- NOTE | 2022-12-20 14:47 | PM.CNNEP ---
Assessment and Plan Assessment and plan (1) Chronic kidney disease, stage IV (severe): Code(s): N18.4 - Chronic kidney disease, stage 4 (severe) Status: Chronic Assessment and Plan: creatinine has been fluctuating ~ 2.0 - 2.5mg/dl since earlier this year seen by myself as a new patient in early November 2022 suspected etiology of CKD due to hypertension, diabetes, and vascular disease however, his CHF and need for diuresis as well as suspected TIERRA likely playing a role renal ultrasound noted proceed to serological/urine testing (that was ordered on office visit) for further evaluation follow repeat labs and UOP (2) CHF (congestive heart failure): Qualifiers: Heart failure chronicity: acute Heart failure type: diastolic Qualified Code(s): I50.31 - Acute diastolic (congestive) heart failure Code(s): I50.9 - Heart failure, unspecified Status: Acute Assessment and Plan: acute exacerbation appears to be right sided heart failure + diastolic dysfunction Echo results noted -- normal LVSF, EF 50-55%, mild TR, no other significant valve pathology presented with dyspnea on exertion, abdominal distention and scrotal edema reasonable diuresis since admission but limited now by renal dysfunction follow I/Os, daily weights, and respiratory status noted plans for right thoracentesis Cardiology following (3) Respiratory failure with hypoxia: Code(s): J96.91 - Respiratory failure, unspecified with hypoxia Status: Acute Assessment and Plan: multifactorial: possible COPD suspected TIERRA/OHS fluid/volume overload CHF anemia Pulmonary following with recommendations noted follow respiratory status (4) Hypertension: Qualifiers: Hypertension type: primary hypertension Qualified Code(s): I10 - Essential (primary) hypertension Code(s): I10 - Essential (primary) hypertension Status: Chronic Assessment and Plan: reasonable control at this time follow trend of hemodynamics (5) Anemia: Code(s): D64.9 - Anemia, unspecified Status: Chronic Assessment and Plan: partly due to CKD but worsened by acute illness consider empiric EDUARDO during this hospitalization follow trend of H/H (6) Diabetes mellitus with chronic kidney disease: Code(s): E11.22 - Type 2 diabetes mellitus with diabetic chronic kidney disease Status: Chronic Assessment and Plan: follow accuchecks glycemic control per hospitalists I will continue to follow the patient with you while he remains hospitalized and make further recommendations during his hospital course. Thank you for allowing me to participate in the care of this patient. History of Present Illness Reason for Consult Consult date: 12/20/22 Reason for consult: chronic renal failure Chief Complaint Chief complaint: CHF History of Present Illness Narrative: The patient is a 57-year-old male with a past medical history as outlined below who presented to [facility] Emergency room for complaints of worsening shortness of breath in association with swelling/edema in his genital area. The patient was just recently hospitalized here at [facility] earlier in November of 2022 with left lower extremity cellulitis. He did have significant lower extremity edema particularly as left lower extremity but this was felt to be more related to the infection rather than fluid overload. He was continued on his home diuretics with relative stability in his overall volume status. He was eventually discharged home on oral antibiotic therapy. For last 3 or 4 days if not longer, he has noted increasing shortness of breath to the point where it is difficult for him to talk or even complete sentences in association with worsening edema in his scrotal area, specifically, his testicles and eventually his foreskin. As eventually this shortness of breath as
--- NOTE | 2022-12-20 14:47 | P.CONNP_ITS ---
Assessment and Plan Assessment and plan (1) Chronic kidney disease, stage IV (severe): Code(s): N18.4 - Chronic kidney disease, stage 4 (severe) Status: Chronic Assessment and Plan: * creatinine has been fluctuating ~ 2.0 - 2.5mg/dl since earlier this year * seen by myself as a new patient in early November 2022 * suspected etiology of CKD due to hypertension, diabetes, and vascular disease * however, his CHF and need for diuresis as well as suspected TIERRA likely playing a role * renal ultrasound noted * proceed to serological/urine testing (that was ordered on office visit) for further evaluation * follow repeat labs and UOP (2) CHF (congestive heart failure): Qualifiers: Heart failure chronicity: acute Heart failure type: diastolic Qualified Code(s): I50.31 - Acute diastolic (congestive) heart failure Code(s): I50.9 - Heart failure, unspecified Status: Acute Assessment and Plan: * acute exacerbation * appears to be right sided heart failure + diastolic dysfunction * Echo results noted -- normal LVSF, EF 50-55%, mild TR, no other significant valve pathology * presented with dyspnea on exertion, abdominal distention and scrotal edema * reasonable diuresis since admission but limited now by renal dysfunction * follow I/Os, daily weights, and respiratory status * noted plans for right thoracentesis * Cardiology following (3) Respiratory failure with hypoxia: Code(s): J96.91 - Respiratory failure, unspecified with hypoxia Status: Acute Assessment and Plan: * multifactorial: * possible COPD * suspected TIERRA/OHS * fluid/volume overload * CHF * anemia * Pulmonary following with recommendations noted * follow respiratory status (4) Hypertension: Qualifiers: Hypertension type: primary hypertension Qualified Code(s): I10 - Essential (primary) hypertension Code(s): I10 - Essential (primary) hypertension Status: Chronic Assessment and Plan: * reasonable control at this time * follow trend of hemodynamics (5) Anemia: Code(s): D64.9 - Anemia, unspecified Status: Chronic Assessment and Plan: * partly due to CKD but worsened by acute illness * consider empiric EDUARDO during this hospitalization * follow trend of H/H (6) Diabetes mellitus with chronic kidney disease: Code(s): E11.22 - Type 2 diabetes mellitus with diabetic chronic kidney disease Status: Chronic Assessment and Plan: * follow accuchecks * glycemic control per hospitalists I will continue to follow the patient with you while he remains hospitalized and make further recommendations during his hospital course. Thank you for allowing me to participate in the care of this patient. History of Present Illness Reason for Consult Consult date: 12/20/22 Reason for consult: chronic renal failure Chief Complaint Chief complaint: CHF History of Present Illness Narrative: The patient is a 57-year-old male with a past medical history as outlined below who presented to [facility] Emergency room for complaints of worsening shortness of breath in association with swelling/edema in his genital area. The patient was just recently hospitalized here at [facility] earlier in November of 2022 with left lower extremity cellulitis. He did have significant lower extremity edema particularly as left lower extremity but this was felt to be more related to the infection rather than fluid overload. He was continued o n h
[2022-12-20 16:45] LABS: Glucose Point of Care 167 mg/dl (65-105)
[2022-12-20] MEDS: SODIUM CHLORIDE 0.9% IV 500 ML 50 ML IV CONT (17:41)
--- NOTE | 2022-12-20 18:31 | PC.NURSE ---
Dr Zabala made aware of increased confusion today pt has been hallucinating today, pt has been axox1-2 gave order to start fluids NS 500 cc at 50 ml/hr and repeat BMP on 12/21, and to hold dose of Lasix in am due BUN 75, creat 2.5 Nephrology saw pt this evening.
[2022-12-20 19:57] LABS: Glucose Point of Care 139 mg/dl (65-105)
[2022-12-20] MEDS: traMADol HCL (*CRX) 50 MG TABLET PO (21:20)
[2022-12-20] MEDS: ATORVASTATIN 40 MG TABLET PO (21:21)
[2022-12-20] MEDS: AMITRIPTYLINE HCL 25 MG TABLET 50 MG PO (21:21)
[2022-12-20] MEDS: traZODone HCL 50 MG TABLET 100 MG PO (21:22)
[2022-12-20] MEDS: INSULIN GLARGINE (*BKC) 100 UNITS/ML 10 UNITS SUB-Q (21:24)
[2022-12-20] MEDS: QUEtiapine FUMARATE 12.5 MG TABLET PO (21:24)
[2022-12-21] VITALS (18 sets, daily range): BP systolic 129–166; BP diastolic 34–84; PULSE 80–110; RESP 18–32; TEMP 36.5–37.3; O2SAT 8–99
[2022-12-21 04:23] LABS: Creatinine Urine 102.5 mg/dL; Total Protein Urine Random 119 mg/dL; Ur Ttl Prot Creatinine Ratio 1.16 mg/mg (0-0.20); Urea Random Urine 604 MG/DL
[2022-12-21 04:25] LABS: Sodium Urine Random 15 meq/L
[2022-12-21 05:14] LABS: Eosinophil Urine None Seen % (None Seen); Urine Eos QC 2nd Tech Confirmed
[2022-12-21 05:22] LABS: Anion Gap 5 mmol/L (8-16); Blood Urea Nitrogen 78 mg/dL (9-20); Calcium 8.5 mg/dL (8.4-10.2); Carbon Dioxide 33 mmol/L (22-30); Chloride 100 mmol/L (98-107); Creatine Kinase 99 U/L (55-170); Estimated CRCL calculation 32 ml/min; Estimated Glomerular Filt Rate 23; Glucose 85 mg/dL (65-110); Potassium 3.9 mmol/L (3.4-5.0); Sodium 138 mmol/L (137-145)
[2022-12-21] MEDS: GABAPENTIN 100 MG CAPSULE PO ×3 (05:38→21:31)
[2022-12-21] MEDS: hydrALAZINE HCL 50 MG TABLET 100 MG PO ×3 (05:38→21:30)
[2022-12-21] MEDS: LEVOTHYROXINE SODIUM 100 MCG TABLET PO (05:39)
[2022-12-21 06:00] LABS: Complement C3 113 mg/dL (88-165)
[2022-12-21] MEDS: UMECLIDINIUM/VILANTEROL 62.5-25 MCG ELLIPTA 1 PUFF INHALATION (07:20)
[2022-12-21 08:03] LABS: Glucose Point of Care 84 mg/dl (65-105)
--- NOTE | 2022-12-21 08:06 | PM.PNPUL ---
Progress Note: A&P Assessment and Plan (1) CHF (congestive heart failure): Code(s): I50.9 - Heart failure, unspecified Status: Acute Assessment and Plan: Patient with history of CAD s/p CABG, Afib on eliquis, is currently hospitalized with? scrotal edema left lower extremity edema,? small ascites on abdominal ultrasound, left pleural effusion and pulmonary congestion likely related to congestive heart failure.? Echocardiogram 427 with normal LV systolic function, EF 50-55%, no significant valvular abnormality, mildly enlarged right ventricle with decreased systolic function, mildly enlarged left atrium and right atrium, RVSP 42. 5 Patient has been aggressively diuresed per Cardiology and hospitalist team. Scrotal edema has improved. Pedal edema has improved. BNP is elevated and his creatinine today is 2.4 on Lasix 40 IV q.day, Plavix 75 a day, apixaban 5 q.12, statin, Imdur 30 q.day, hydralazine 100 Q 8 metoprolol 50 q.12 per Cardiology. Fluid overload is contributing to hypoxemia and hypoxemia appears to improve be improving now that he has been aggressively diuresed. CT of the chest yesterday with mild pulmonary edema, moderate right and small left pleural effusion. Thoracentesis of the right has been ordered. I have held Eliquis and Plavix so that this procedure can be performed. 12/20 The patient tells me he wore his machine last night and is breathing better than when he arrived but still has some shortness of breath. He has not been out of bed. creatinine 2.5 on Lasix 40 p.o. b.i.d.. Patient being diuresed per Cardiology and hospitalist teams. CT of the chest yesterday with mild pulmonary edema, moderate right and small left pleural effusion. Thoracentesis of the right has been ordered. I have held Eliquis and Plavix so that this procedure can be performed, will need cardiology input regarding bridging if needed. Unable to perform right thoracentesis as POA could not be reached for consent. 12/21 patient states he is breathing normally. BUN 78, creatinine 2.9. weight is 112.8 kg ) admission weight 122.8. Cumulative diuresis since admission is 14.6 L. Lasix on hold. Nephrology consulted. (2) Chronic obstructive pulmonary disease: Code(s): J44.9 - Chronic obstructive pulmonary disease, unspecified Status: Chronic Assessment and Plan: Patient carries a diagnosis of COPD. He has minimal tobacco use and told me he never smokes although smoking for 4 years is documented in the chart. he was exposed to secondhand smoke from both of his parents and from living partners until 5 years ago. He also has a history of smoking 1 marijuana cigarette a day from age [age] and smoking cocaine daily from age [age]. I have no PFTs. Patient presented with a white blood cell count of 5.1 with 1.4% eosinophils=71/uL. 12/19/22: the patient may have COPD and will need outpatient PFTs to help confirm this diagnosis. Plan:I will order CT of the chest without contrast to assess for bullous emphysema and or substance abuse related interstitial lung disease. The patient has been maintained at home on Anoro Ellipta and is currently on Anoro Ellipta and Flovent 110 1 puff b.i.d.. I will discontinue the Flovent today. 12/20 patient has no wheezing on Anoro Ellipta 62.5-25 at 1 puff q.day. Will continue. 12/21 No wheezes on Anoro, continue (3) Respiratory failure with hypoxia: Code(s): J96.91 - Respiratory failure, unspecified with hypoxia Status: Acute Assessment and Plan: The patient tells me he has not been on oxygen at home although the chart indicates otherwise. Patient?presented with fluid overload and also has symptoms of daytime somnolence which are probably related to sleep disordered breathing.? In fact his?RN noticed oxyhemoglobin desaturation with some respiratory pauses while the patient was receiving supplemental oxygen. The patient has no evidence of hypercarbic respirat
[2022-12-21] MEDS: TOLNAFTATE 1% POWDER 45 GM BTL 1 APPLIC TOPICAL ×2 (10:07→21:33)
[2022-12-21] MEDS: PYRIDOXINE HCL 50 MG TABLET PO (10:08)
[2022-12-21] MEDS: METOPROLOL TARTRATE 50 MG TAB PO ×2 (10:08→21:31)
[2022-12-21] MEDS: POLYMYXIN/TRIMETHOPRIM OPHTH 10 ML DROPS 1 DROP EACH EYE ×4 (10:09→21:32)
[2022-12-21] MEDS: FAMOTIDINE 20 MG TABLET PO ×2 (10:09→21:31)
[2022-12-21] MEDS: ASCORBIC ACID 500 MG TABLET PO (10:09)
[2022-12-21] MEDS: busPIRone HCL 5 MG TABLET PO ×3 (10:11→17:17)
[2022-12-21] MEDS: busPIRone HCL 10 MG TABLET PO ×3 (10:11→17:17)
[2022-12-21] MEDS: ISOSORBIDE MONONITRATE 30 MG TAB.ER.24H PO (10:11)
[2022-12-21] MEDS: ASPIRIN 81 MG ENTERIC TABLET PO (10:20)
--- NOTE | 2022-12-21 11:49 | ECG_ITS ---
Measurements Intervals [place] Rate: 94 P: AK: 0 QRS: 24 QRSD: 105 T: 0 QT: 376 QTc: 472 Interpretive Statements ATRIAL FLUTTER WITH NORMAL VENTRICULAR RESPONSE DELAYED PRECORDIAL R/S TRANSITION BORDERLINE ST-T WAVE ABNORMALITY- HIGH LATERAL LEADS ABNORMAL ECG COMPARED TO ECG 12/17/2022 20:30:57 NO SIGNIFICANT CHANGES Electronically Signed On 12-21-2022 13:40:42 CDT by Asif Prabhakar D.O.
[2022-12-21 12:04] LABS: Glucose Point of Care 68 mg/dl (65-105)
[2022-12-21 12:13] LABS: pH Pleural Fluid > 7.500 (7.210-7.500)
--- NOTE | 2022-12-21 12:33 | P.PNNP_ITS ---
Progress Note: A&P Assessment and Plan (1) Chronic kidney disease, stage IV (severe): Code(s): N18.4 - Chronic kidney disease, stage 4 (severe) Status: Chronic Assessment and Plan: * creatinine has been fluctuating ~ 2.0 - 2.5mg/dl since earlier this year * seen by me as a new patient in early November 2022 * suspected etiology of CKD due to hypertension, diabetes, and vascular disease * however, his CHF and need for diuresis as well as suspected TIERRA likely playing a role * evaluation noted: * renal ultrasound normal * urine electrolytes look prerena (inspite of clear evidence of volume overload) * urine eosinophils negative * serological testing pending * follow repeat labs and UOP (2) CHF (congestive heart failure): Qualifiers: Heart failure chronicity: acute Heart failure type: diastolic Qualified Code(s): I50.31 - Acute diastolic (congestive) heart failure Code(s): I50.9 - Heart failure, unspecified Status: Acute Assessment and Plan: * acute exacerbation * appears to be right sided heart failure + diastolic dysfunction * Echo results noted -- normal LVSF, EF 50-55%, mild TR, no other significant valve pathology * presented with dyspnea on exertion, abdominal distention and scrotal edema * reasonable diuresis since admission but limited now by renal dysfunction (diuretics on hold) * follow I/Os, daily weights, and respiratory status * s/p right thoracentesis (on 12/21/22) * suspect will eventually to restart diuretics * Cardiology following (3) Respiratory failure with hypoxia: Code(s): J96.91 - Respiratory failure, unspecified with hypoxia Status: Acute Assessment and Plan: * multifactorial: * possible COPD * suspected TIERRA/OHS * fluid/volume overload * CHF * anemia * Pulmonary following with recommendations noted * follow respiratory status (4) Hypertension: Qualifiers: Hypertension type: primary hypertension Qualified Code(s): I10 - Essential (primary) hypertension Code(s): I10 - Essential (primary) hypertension Status: Chronic Assessment and Plan: * reasonable control at this time * follow trend of hemodynamics (5) Anemia: Code(s): D64.9 - Anemia, unspecified Status: Chronic Assessment and Plan: * partly due to CKD but worsened by acute illness * consider empiric EDUARDO during this hospitalization * on oral iron * follow trend of H/H (6) Diabetes mellitus with chronic kidney disease: Code(s): E11.22 - Type 2 diabetes mellitus with diabetic chronic kidney disease Status: Chronic Assessment and Plan: * follow accuchecks * glycemic control per hospitalists Will continue to follow. Subjective Date/time seen: 12/21/22 12:33 Interval history: Follow-up for chronic kidney disease and fluctuating creatinine. Breathing seems to be doing a bit better at the time of my visit; unfortunately, renal function/creatinine is worse prompting decision to hold diuretics at this time; patient reports scrotal/penile edema is better but still present; s/p tho racentesis earlier today and tolerated this intervention well; no other acute issues/events overnight or earlier this morning. Exam Narrative: General: middle aged male in NAD Heart: normal S1 and S2; no rub Lungs: coarse with bibasilar crackles Abdomen: soft, nontender, nondistended, positive bowel sounds Extremities: no cyanosis or clubbing; s
--- NOTE | 2022-12-21 12:33 | PM.PNNEP ---
Progress Note: A&P Assessment and Plan (1) Chronic kidney disease, stage IV (severe): Code(s): N18.4 - Chronic kidney disease, stage 4 (severe) Status: Chronic Assessment and Plan: creatinine has been fluctuating ~ 2.0 - 2.5mg/dl since earlier this year seen by me as a new patient in early November 2022 suspected etiology of CKD due to hypertension, diabetes, and vascular disease however, his CHF and need for diuresis as well as suspected TIERRA likely playing a role evaluation noted: renal ultrasound normal urine electrolytes look prerena (inspite of clear evidence of volume overload) urine eosinophils negative serological testing pending follow repeat labs and UOP (2) CHF (congestive heart failure): Qualifiers: Heart failure chronicity: acute Heart failure type: diastolic Qualified Code(s): I50.31 - Acute diastolic (congestive) heart failure Code(s): I50.9 - Heart failure, unspecified Status: Acute Assessment and Plan: acute exacerbation appears to be right sided heart failure + diastolic dysfunction Echo results noted -- normal LVSF, EF 50-55%, mild TR, no other significant valve pathology presented with dyspnea on exertion, abdominal distention and scrotal edema reasonable diuresis since admission but limited now by renal dysfunction (diuretics on hold) follow I/Os, daily weights, and respiratory status s/p right thoracentesis (on 12/21/22) suspect will eventually to restart diuretics Cardiology following (3) Respiratory failure with hypoxia: Code(s): J96.91 - Respiratory failure, unspecified with hypoxia Status: Acute Assessment and Plan: multifactorial: possible COPD suspected TIERRA/OHS fluid/volume overload CHF anemia Pulmonary following with recommendations noted follow respiratory status (4) Hypertension: Qualifiers: Hypertension type: primary hypertension Qualified Code(s): I10 - Essential (primary) hypertension Code(s): I10 - Essential (primary) hypertension Status: Chronic Assessment and Plan: reasonable control at this time follow trend of hemodynamics (5) Anemia: Code(s): D64.9 - Anemia, unspecified Status: Chronic Assessment and Plan: partly due to CKD but worsened by acute illness consider empiric EDUARDO during this hospitalization on oral iron follow trend of H/H (6) Diabetes mellitus with chronic kidney disease: Code(s): E11.22 - Type 2 diabetes mellitus with diabetic chronic kidney disease Status: Chronic Assessment and Plan: follow accuchecks glycemic control per hospitalists Will continue to follow. Subjective Date/time seen: 12/21/22 12:33 Interval history: Follow-up for chronic kidney disease and fluctuating creatinine. Breathing seems to be doing a bit better at the time of my visit; unfortunately, renal function/creatinine is worse prompting decision to hold diuretics at this time; patient reports scrotal/penile edema is better but still present; s/p thoracentesis earlier today and tolerated this intervention well; no other acute issues/events overnight or earlier this morning. Exam Narrative: General: middle aged male in NAD Heart: normal S1 and S2; no rub Lungs: coarse with bibasilar crackles Abdomen: soft, nontender, nondistended, positive bowel sounds Extremities: no cyanosis or clubbing; s/p right BKA Skin: warm and dry Objective Data Vital Signs Vital Signs: Vital Signs Temp Pulse Resp BP Pulse Ox O2 Del Method O2 Flow Rate 12/21/22 12:00 99.2 F 90 24 H 138/68 93 12/21/22 11:59 166/34 H 98 12/21/22 11:59 97 8 L 12/21/22 11:59 96 129/84 96 12/21/22 10:00 84 12/21/22 08:00 108 H 12/21/22 10:08 99 12/21/22 08:00 98.7 F 110 H 32 H 143/79 H 86 L 12/21/22 07:20 97 18 12/21/22 07:20 97 18
[2022-12-21 13:45] LABS: Appearance Pleural Fluid Hazy (Clear); Color Pleural Fluid Yellow (Colorless); Pleural fluid source Pleural fluid
[2022-12-21 13:46] LABS: Lymphocytes Pleural Fluid 9 %; Macrophages Pleural Fluid 7 %; Monocytes Pleural Fluid 18 %; Neutrophils Pleural Fluid 53 % (0-25)
[2022-12-21 13:47] LABS: Mesothelial Cells Pleural Flui 13 %
[2022-12-21] MEDS: FERROUS SULFATE 324 MG TABLET PO ×2 (13:59→17:16)
[2022-12-21 15:09] LABS: Glucose Point of Care 128 mg/dl (65-105)
--- NOTE | 2022-12-21 15:18 | PM.IMPN ---
Progress Note: A&P Assessment and Plan (1) CHF (congestive heart failure): Code(s): I50.9 - Heart failure, unspecified Status: Acute Assessment and Plan: Continue diuresis. Creatinine worsening so Lasix was to p.o. by Cardiology. Monitor BMP (2) Respiratory failure with hypoxia: Code(s): J96.91 - Respiratory failure, unspecified with hypoxia Status: Acute Assessment and Plan: Appreciate pulmonary input. CT chest without contrast shows bilateral pleural effusion. Thoracentesis ordered per Pulmonary. Hold Eliquis and Plavix for thoracentesis today Patient will likely need outpatient sleep study as well as pulmonary function tests pt is on oxygen and BIPAP at night (3) Acute renal failure superimposed on chronic kidney disease: Code(s): N17.9 - Acute kidney failure, unspecified; N18.9 - Chronic kidney disease, unspecified Status: Acute Assessment and Plan: Creatinine worsening. Lasix switched to p.o.. Monitor BMP (4) HTN (hypertension): Code(s): I10 - Essential (primary) hypertension Status: Acute Assessment and Plan: Blood pressures improving with diuresis (5) Chronic anticoagulation: Code(s): Z79.01 - intermediate (current) use of anticoagulants Status: Chronic Assessment and Plan: Continue (6) Anemia, chronic disease: Code(s): D63.8 - Anemia in other chronic diseases classified elsewhere Status: Acute Assessment and Plan: Stable, follow-up (7) Diabetes: Code(s): E11.9 - Type 2 diabetes mellitus without complications Status: Acute Assessment and Plan: Blood sugars reviewed and adequately controlled (8) Paroxysmal atrial fibrillation: Code(s): I48.0 - Paroxysmal atrial fibrillation Status: Chronic Assessment and Plan: Sinus rhythm and anticoagulated 12/17 transferred to medical floor (9) Coronary artery disease: Code(s): I25.10 - Atherosclerotic heart disease of [place] coronary artery without angina pectoris Status: Acute Subjective Date/time seen: 12/21/22 15:18 Interval history: 57-year-old male with insulin-dependent diabetes, coronary artery disease, paroxysmal atrial fibrillation, chronic kidney disease, hypertension, COPD, recently discharged after being treated for left leg cellulitis presented with worsening SOB/leg swelling and scrotal swelling. His scrotal swelling has been to a point where he has pain in scrotal area. He denies medication non compliance. He follows up with [facility]. Pt admitted for acute respiratory failure secondary to chf excerbation ct chest showed CT of the chest yesterday with mild pulmonary edema, moderate right and small left pleural effusion.?pt would benefit from thoracentesis completed today Review of Systems Review of Systems: Ongoing sob needing oxygen and bipap Exam Narrative: General alert tired on oxygen Chest with coarse breath sounds H/O of CABG Heart rate regular with no audible murmur Extremities no left foot edema, right with BKA and nonpitting edema of stump Abdomen protuberant but soft nontender with good bowel sounds no palpable masses Musculoskeletal right BKA as noted Objective Data Vital Signs Vital Signs: Vital Signs - 24 hr 12/20/22 16:00 12/20/22 16:00 12/20/22 16:00 Temperature 37.0 C Pulse Rate 99 97 Respiratory Rate 18 Blood Pressure 146/61 H Pulse Oximetry 95 97 Oxygen Delivery Nasal Cannula Oxygen Flow Rate 3 Fraction of Inspired Oxygen 12/20/22 18:00 12/20/22 19:59 12/20/22 21:23 Temperature 36.7 C Pulse Rate 104 H 101 H 98 Respiratory Rate 20 Blood Pressure 127/71 Pulse Oximetry 96 Oxygen Delivery Oxygen Flow Rate Fraction of Inspired Oxygen 12/20/22 20:00 12/20/22 20:00 12/20/22 22:00 Temperature Pulse Rate 98 98 89 Respiratory Rate 20 Blood Pressure Pulse Oximetry 9
--- NOTE | 2022-12-21 15:26 | PM.PNCARD ---
Progress Note: A&P Assessment and Plan (1) CHF (congestive heart failure): Qualifiers: Heart failure type: diastolic Heart failure chronicity: acute Qualified Code(s): I50.31 - Acute diastolic (congestive) heart failure Code(s): I50.9 - Heart failure, unspecified Status: Acute Assessment and Plan: Acute heart failure with preserved ejection fraction and right-sided heart failure. Presented with dyspnea on exertion, abdominal distention and scrotal edema. He has RV dysfunction and diastolic heart failure. Echo with normal LVSF, EF 50-55%, mild TR, no other significant valve pathology. Diuresed very well with IV Lasix now on hold due to JOSE M. Accurate intake and output Daily weights Low Na diet CHF counseling - manager media relations c/s placed Renal function worsening. Lasix on hold. Nearly 15.4 L negative to date. Status post left thoracentesis 1 L fluid removal. (2) Acute renal failure superimposed on chronic kidney disease: Code(s): N17.9 - Acute kidney failure, unspecified; N18.9 - Chronic kidney disease, unspecified Status: Acute Assessment and Plan: Worsening renal function, likely from diuresis. Creatinine 2.9 today appreciate neurology consultation new recommendations. Avoid nephrotoxic agents at this time. (3) Hypertension associated with diabetes: Code(s): E11.59 - Type 2 diabetes mellitus with other circulatory complications; I15.2 - Hypertension secondary to endocrine disorders Status: Acute Assessment and Plan: BP remains elevated at times stable otherwise. Continue hydralazine 100 mg q.8 hours, metoprolol tartrate 50 mg twice daily (4) Paroxysmal atrial fibrillation: Code(s): I48.0 - Paroxysmal atrial fibrillation Status: Chronic Assessment and Plan: Patient currently in atrial flutter with variable AV block. Continue stroke risk reduction with eliquis 5 mg twice daily. Monitor for bleeding. Follow H&H. Metoprolol tartrate 50 mg twice daily for heart rate control. (5) Chronic anticoagulation: Code(s): Z79.01 - senior living (current) use of anticoagulants Status: Chronic Assessment and Plan: Continue Eliquis 5 mg twice daily. (6) Coronary artery disease: Code(s): I25.10 - Atherosclerotic heart disease of [place] coronary artery without angina pectoris Status: Acute Assessment and Plan: Elevated troponins are noted these are not related to acute plaque rupture infarction in setting of acute on chronic kidney failure and CHF. Subjective Date/time seen: Date of service: 12/21/22 15:26 Interval history: Reason for visit: Decompensated heart failure, atrial flutter HPI: Patient is a 57-year-old male who has a history of coronary disease.? Details are not known.? He follows with [facility].? He has had progressive lower extremity and scrotal edema as well as worsening shortness of breath over the past several months.? Symptoms worsened to the point that his testicles and foreskin were swollen and painful and decided to come to the hospital for further evaluation.? He was started on IV diuretics and was found to be in volume overload and is already feeling a little bit better with less swelling and less shortness of breath.? He does describe some orthopnea.? No chest pain.? No syncope, presyncope, paroxysmal nocturnal dyspnea.? Does have occasional palpitations.? He was recently admitted to this hospital for treatment of cellulitis. Date of service 12/16: Continues to complain of shortness of breath today.? Does not think his breathing has improved any since yesterday.? Has shortness of breath with minimal exertion.? No chest pain, palpitations. Date of service 12/17: Feeling better. No new complaints this morning. Date of service 12/18: Diuresing well. No shortness of breath. Lower extremity edema significantly improved. Per discussion with RN, cannot wean off oxygen. Patient was not on home oxygen. D
[2022-12-21 16:51] LABS: Glucose Point of Care 172 mg/dl (65-105)
[2022-12-21] MEDS: traMADol HCL (*CRX) 50 MG TABLET PO (17:29)
[2022-12-21 19:51] LABS: Glucose Point of Care 129 mg/dl (65-105)
[2022-12-21] MEDS: traZODone HCL 50 MG TABLET 100 MG PO (21:30)
[2022-12-21] MEDS: AMITRIPTYLINE HCL 25 MG TABLET 50 MG PO (21:31)
[2022-12-21] MEDS: ATORVASTATIN 40 MG TABLET PO (21:32)
[2022-12-21] MEDS: FLUTICASONE PROPIONATE 0.05% NA SPR 16 GM BTL (*BKC) 1 SPRAY NASAL (21:32)
[2022-12-21] MEDS: QUEtiapine FUMARATE 12.5 MG TABLET PO (21:32)
[2022-12-21] MEDS: INSULIN GLARGINE (*BKC) 100 UNITS/ML 10 UNITS SUB-Q (21:33)
[2022-12-22] VITALS (20 sets, daily range): BP systolic 119–148; BP diastolic 64–90; PULSE 42–111; RESP 20–28; TEMP 36.4–37; O2SAT 90–100
[2022-12-22] MEDS: GABAPENTIN 100 MG CAPSULE PO ×3 (06:17→21:13)
[2022-12-22] MEDS: LEVOTHYROXINE SODIUM 100 MCG TABLET PO (06:17)
[2022-12-22] MEDS: hydrALAZINE HCL 50 MG TABLET 100 MG PO ×3 (06:17→21:13)
[2022-12-22] MEDS: POLYMYXIN/TRIMETHOPRIM OPHTH 10 ML DROPS 1 DROP EACH EYE ×5 (06:17→21:12)
[2022-12-22 08:05] LABS: Glucose Point of Care 95 mg/dl (65-105)
[2022-12-22] MEDS: UMECLIDINIUM/VILANTEROL 62.5-25 MCG ELLIPTA 1 PUFF INHALATION (08:22)
--- NOTE | 2022-12-22 08:53 | PM.PNPUL ---
Progress Note: A&P Assessment and Plan (1) CHF (congestive heart failure): Qualifiers: Heart failure chronicity: acute Heart failure type: diastolic Qualified Code(s): I50.31 - Acute diastolic (congestive) heart failure Code(s): I50.9 - Heart failure, unspecified Status: Acute Assessment and Plan: Patient with history of CAD s/p CABG, Afib on eliquis, is currently hospitalized with? scrotal edema left lower extremity edema,? small ascites on abdominal ultrasound, left pleural effusion and pulmonary congestion likely related to congestive heart failure.? Echocardiogram 427 with normal LV systolic function, EF 50-55%, no significant valvular abnormality, mildly enlarged right ventricle with decreased systolic function, mildly enlarged left atrium and right atrium, RVSP 42. 5 Patient has been aggressively diuresed per Cardiology and hospitalist team. Scrotal edema has improved. Pedal edema has improved. BNP is elevated and his creatinine today is 2.4 on Lasix 40 IV q.day, Plavix 75 a day, apixaban 5 q.12, statin, Imdur 30 q.day, hydralazine 100 Q 8 metoprolol 50 q.12 per Cardiology. Fluid overload is contributing to hypoxemia and hypoxemia appears to improve be improving now that he has been aggressively diuresed. CT of the chest yesterday with mild pulmonary edema, moderate right and small left pleural effusion. Thoracentesis of the right has been ordered. I have held Eliquis and Plavix so that this procedure can be performed. 12/20 The patient tells me he wore his machine last night and is breathing better than when he arrived but still has some shortness of breath. He has not been out of bed. creatinine 2.5 on Lasix 40 p.o. b.i.d.. Patient being diuresed per Cardiology and hospitalist teams. CT of the chest yesterday with mild pulmonary edema, moderate right and small left pleural effusion. Thoracentesis of the right has been ordered. I have held Eliquis and Plavix so that this procedure can be performed, will need cardiology input regarding bridging if needed. Unable to perform right thoracentesis as POA could not be reached for consent. 12/21 patient states he is breathing normally. BUN 78, creatinine 2.9. weight is 112.8 kg ) admission weight 122.8. Cumulative diuresis since admission is 14.6 L. Lasix on hold. Nephrology consulted. 12/22 Lasix on hold, weight 112.2 kilos, cumulative diuresis since admission -16 L (2) Chronic obstructive pulmonary disease: Code(s): J44.9 - Chronic obstructive pulmonary disease, unspecified Status: Chronic Assessment and Plan: Patient carries a diagnosis of COPD. He has minimal tobacco use and told me he never smokes although smoking for 4 years is documented in the chart. he was exposed to secondhand smoke from both of his parents and from living partners until 5 years ago. He also has a history of smoking 1 marijuana cigarette a day from age [age] and smoking cocaine daily from age [age]. I have no PFTs. Patient presented with a white blood cell count of 5.1 with 1.4% eosinophils=71/uL. 12/19/22: the patient may have COPD and will need outpatient PFTs to help confirm this diagnosis. Plan:I will order CT of the chest without contrast to assess for bullous emphysema and or substance abuse related interstitial lung disease. The patient has been maintained at home on Anoro Ellipta and is currently on Anoro Ellipta and Flovent 110 1 puff b.i.d.. I will discontinue the Flovent today. 12/20 patient has no wheezing on Anoro Ellipta 62.5-25 at 1 puff q.day. Will continue. 12/21 No wheezes on Anoro, continue 12/22 No wheezes, continue anoro (3) Respiratory failure with hypoxia: Code(s): J96.91 - Respiratory failure, unspecified with hypoxia Status: Acute Assessment and Plan: The patient tells me he has not been on oxygen at home although the chart indicates otherwise. Patient?presented with fluid overload and also rouse
[2022-12-22] MEDS: traMADol HCL (*CRX) 50 MG TABLET PO ×2 (09:11→18:15)
[2022-12-22] MEDS: TOLNAFTATE 1% POWDER 45 GM BTL 1 APPLIC TOPICAL ×2 (09:12→21:14)
[2022-12-22] MEDS: ASCORBIC ACID 500 MG TABLET PO (09:12)
[2022-12-22] MEDS: ISOSORBIDE MONONITRATE 30 MG TAB.ER.24H PO (09:12)
[2022-12-22] MEDS: busPIRone HCL 10 MG TABLET PO ×3 (09:13→18:18)
[2022-12-22] MEDS: busPIRone HCL 5 MG TABLET PO ×3 (09:13→18:17)
[2022-12-22] MEDS: METOPROLOL TARTRATE 50 MG TAB PO ×2 (09:14→21:12)
[2022-12-22] MEDS: FLUTICASONE PROPIONATE 0.05% NA SPR 16 GM BTL (*BKC) 1 SPRAY NASAL ×2 (09:14→21:12)
[2022-12-22] MEDS: polyethylene glycoL 3350 17 GM POWD.PACK PO (09:14)
[2022-12-22] MEDS: APIXABAN 5 MG TABLET PO ×2 (09:15→21:13)
[2022-12-22] MEDS: PYRIDOXINE HCL 50 MG TABLET PO (09:15)
[2022-12-22] MEDS: ASPIRIN 81 MG ENTERIC TABLET PO (09:21)
[2022-12-22 11:53] LABS: Glucose Point of Care 175 mg/dl (65-105)
--- NOTE | 2022-12-22 11:56 | PM.PNCARD ---
Progress Note: A&P Assessment and Plan (1) CHF (congestive heart failure): Qualifiers: Heart failure chronicity: acute Heart failure type: diastolic Qualified Code(s): I50.31 - Acute diastolic (congestive) heart failure Code(s): I50.9 - Heart failure, unspecified Status: Acute Assessment and Plan: Acute heart failure with preserved ejection fraction and right-sided heart failure. Presented with dyspnea on exertion, abdominal distention and scrotal edema. He has RV dysfunction and diastolic heart failure. Echo with normal LVSF, EF 50-55%, mild TR, no other significant valve pathology. Diuresed very well with IV Lasix but diuretics remain on hold due to JOSE M. Accurate intake and output, daily weights Low Na diet Renal function worsening. Lasix on hold. Nearly 15.8 L negative to date. Status post right thoracentesis 1 L fluid removal 12/21/22. PT OT While patient is improving he still appears mildly volume overloaded. Wean O2 as tolerated. (2) Acute renal failure superimposed on chronic kidney disease: Code(s): N17.9 - Acute kidney failure, unspecified; N18.9 - Chronic kidney disease, unspecified Status: Acute Assessment and Plan: Worsening renal function, from diuresis. BMP pending. Monitor renal function daily for now until trend established. Avoid nephrotoxic agents at this time. Diuresis remains on hold. A monitor volume status. (3) Hypertension associated with diabetes: Code(s): E11.59 - Type 2 diabetes mellitus with other circulatory complications; I15.2 - Hypertension secondary to endocrine disorders Status: Acute Assessment and Plan: BP reasonably controlled. Continue hydralazine 100 mg q.8 hours, metoprolol tartrate 50 mg twice daily (4) Paroxysmal atrial fibrillation: Code(s): I48.0 - Paroxysmal atrial fibrillation Status: Chronic Assessment and Plan: Patient currently in atrial flutter with variable AV block. Continue stroke risk reduction with eliquis 5 mg twice daily. Monitor for bleeding. Follow H&H. Metoprolol tartrate 50 mg twice daily for heart rate control. -continue telemetry. (5) Chronic anticoagulation: Code(s): Z79.01 - half-way (current) use of anticoagulants Status: Chronic Assessment and Plan: Continue Eliquis 5 mg twice daily. (6) Coronary artery disease: Code(s): I25.10 - Atherosclerotic heart disease of [place] coronary artery without angina pectoris Status: Acute Assessment and Plan: Elevated troponins are not related to acute plaque rupture infarction in setting of acute on chronic kidney failure and CHF, consistent with a type 2 infarction. Continue aspirin, atorvastatin 40 bedtime, metoprolol. Subjective Date/time seen: Date of service: 12/22/22 11:56 Interval history: Reason for visit: Decompensated heart failure, atrial flutter HPI: Patient is a 57-year-old male who has a history of coronary disease.? Details are not known.? He follows with [facility].? He has had progressive lower extremity and scrotal edema as well as worsening shortness of breath over the past several months.? Symptoms worsened to the point that his testicles and foreskin were swollen and painful and decided to come to the hospital for further evaluation.? He was started on IV diuretics and was found to be in volume overload and is already feeling a little bit better with less swelling and less shortness of breath.? He does describe some orthopnea.? No chest pain.? No syncope, presyncope, paroxysmal nocturnal dyspnea.? Does have occasional palpitations.? He was recently admitted to this hospital for treatment of cellulitis. 12/16: Continues to complain of shortness of breath today.? Does not think his breathing has improved any since yesterday.? Has shortness of breath with minimal exertion.? No chest pain, palpitations. 12/17: Feeling better. No new complaints this morning. e
[2022-12-22 12:23] LABS: Basophils Percent Auto 0.4 % (0.2-1.2); Eosinophils Absolute Auto 0.1 K/mm3 (0-0.3); Hemoglobin 7.2 g/dL (14.0-18.0); Immature Granulocyte Absolute 0.02 K/mm3 (0.00-0.031); Immature Granulocyte Percent A 0.3 % (0-0.5); Lymphocytes Absolute Auto 0.32 K/mm3 (0.9-3.2); Lymphocytes Percent Auto 4.5 % (18.3-44.2); Mean Corpuscular Hemoglobin 24.7 pg (26-34); Mean Corpuscular Volume 82.2 fl (80-100); Mean Platelet Volume 10.1 fl (7.4-10.4); Monocytes Absolute Auto 0.5 K/mm3 (0.1-0.6); Neutrophils Absolute Auto 6.2 K/mm3 (1.3-6.7); Neutrophils Percent Auto 86.8 % (45.5-73.1); Platelet Count Result 172 k/mm3 (150-375); Red Blood Count 2.92 M/mm3 (4.6-6.20); Red Cell Distribution Width 17.4 % (11.5-14.5); White Blood Count 7.2 K/mm3 (4.5-10.0)
[2022-12-22 12:36] LABS: Alanine Aminotransferase 15 U/L (6-50); Albumin Level 3.4 g/dL (3.5-5.1); Alkaline Phosphatase 212 U/L (38-126); Anion Gap 4 mmol/L (8-16); Aspartate Amino Transferase 23 U/L (17-59); Bilirubin,Total 0.8 mg/dL (0.2-1.3); Blood Urea Nitrogen 80 mg/dL (9-20); Calcium 8.3 mg/dL (8.4-10.2); Carbon Dioxide 35 mmol/L (22-30); Chloride 98 mmol/L (98-107); Estimated CRCL calculation 35 ml/min; Estimated Glomerular Filt Rate 24; Glucose 159 mg/dL (65-110); Magnesium 2.4 mg/dL (1.6-2.3); Potassium 4.1 mmol/L (3.4-5.0); Sodium 137 mmol/L (137-145)
--- NOTE | 2022-12-22 13:15 | P.PNNP_ITS ---
Progress Note: A&P Assessment and Plan (1) Chronic kidney disease, stage IV (severe): Code(s): N18.4 - Chronic kidney disease, stage 4 (severe) Status: Chronic Assessment and Plan: * creatinine has been fluctuating ~ 2.0 - 2.5mg/dl since earlier this year * seen by me as a new patient in early November 2022 * suspected etiology of CKD due to hypertension, diabetes, and vascular disease * however, his CHF and need for diuresis as well as suspected TIERRA likely playing a role * evaluation noted: * renal ultrasound normal * urine electrolytes look prerena (inspite of clear evidence of volume overload) * urine eosinophils negative * serological testing pending * follow repeat labs and UOP (2) CHF (congestive heart failure): Qualifiers: Heart failure chronicity: acute Heart failure type: diastolic Qualified Code(s): I50.31 - Acute diastolic (congestive) heart failure Code(s): I50.9 - Heart failure, unspecified Status: Acute Assessment and Plan: * acute exacerbation * appears to be right sided heart failure + diastolic dysfunction * Echo results noted -- normal LVSF, EF 50-55%, mild TR, no other significant valve pathology * presented with dyspnea on exertion, abdominal distention and scrotal edema * reasonable diuresis since admission but limited now by renal dysfunction (diuretics on hold) * follow I/Os, daily weights, and respiratory status * s/p right thoracentesis (on 12/21/22) * suspect will eventually to restart diuretics * Cardiology following (3) Respiratory failure with hypoxia: Code(s): J96.91 - Respiratory failure, unspecified with hypoxia Status: Acute Assessment and Plan: * multifactorial: * possible COPD * suspected TIERRA/OHS * fluid/volume overload * CHF * anemia * Pulmonary following with recommendations noted * follow respiratory status (4) Hypertension: Qualifiers: Hypertension type: primary hypertension Qualified Code(s): I10 - Essential (primary) hypertension Code(s): I10 - Essential (primary) hypertension Status: Chronic Assessment and Plan: * reasonable control at this time * follow trend of hemodynamics (5) Anemia: Code(s): D64.9 - Anemia, unspecified Status: Chronic Assessment and Plan: * partly due to CKD but worsened by acute illness * consider empiric EDUARDO during this hospitalization * on oral iron * follow trend of H/H (6) Diabetes mellitus with chronic kidney disease: Code(s): E11.22 - Type 2 diabetes mellitus with diabetic chronic kidney disease Status: Chronic Assessment and Plan: * follow accuchecks * glycemic control per hospitalists Will continue to follow. Subjective Date/time seen: 12/22/22 13:15 Interval history: Follow-up for chronic kidney disease and fluctuating creatinine. Respiratory status seems relatively stable at this time; remains off diuretics with improvement in renal function; swelling/edema appears better as well; no issues/events overnight. Exam Narrative: General: middle aged male in NAD Heart: normal S1 and S2; no rub Lungs: coarse with a few bibasilar crackles Abdomen: soft, nontender, nondistended, positive bowel sounds Extremities: no cyanosis or clubbing; s/p right BKA Skin: warm and intact Objective Data Vital Signs Vital Signs:
--- NOTE | 2022-12-22 13:15 | PM.PNNEP ---
Progress Note: A&P Assessment and Plan (1) Chronic kidney disease, stage IV (severe): Code(s): N18.4 - Chronic kidney disease, stage 4 (severe) Status: Chronic Assessment and Plan: creatinine has been fluctuating ~ 2.0 - 2.5mg/dl since earlier this year seen by me as a new patient in early November 2022 suspected etiology of CKD due to hypertension, diabetes, and vascular disease however, his CHF and need for diuresis as well as suspected TIERRA likely playing a role evaluation noted: renal ultrasound normal urine electrolytes look prerena (inspite of clear evidence of volume overload) urine eosinophils negative serological testing pending follow repeat labs and UOP (2) CHF (congestive heart failure): Qualifiers: Heart failure chronicity: acute Heart failure type: diastolic Qualified Code(s): I50.31 - Acute diastolic (congestive) heart failure Code(s): I50.9 - Heart failure, unspecified Status: Acute Assessment and Plan: acute exacerbation appears to be right sided heart failure + diastolic dysfunction Echo results noted -- normal LVSF, EF 50-55%, mild TR, no other significant valve pathology presented with dyspnea on exertion, abdominal distention and scrotal edema reasonable diuresis since admission but limited now by renal dysfunction (diuretics on hold) follow I/Os, daily weights, and respiratory status s/p right thoracentesis (on 12/21/22) suspect will eventually to restart diuretics Cardiology following (3) Respiratory failure with hypoxia: Code(s): J96.91 - Respiratory failure, unspecified with hypoxia Status: Acute Assessment and Plan: multifactorial: possible COPD suspected TIERRA/OHS fluid/volume overload CHF anemia Pulmonary following with recommendations noted follow respiratory status (4) Hypertension: Qualifiers: Hypertension type: primary hypertension Qualified Code(s): I10 - Essential (primary) hypertension Code(s): I10 - Essential (primary) hypertension Status: Chronic Assessment and Plan: reasonable control at this time follow trend of hemodynamics (5) Anemia: Code(s): D64.9 - Anemia, unspecified Status: Chronic Assessment and Plan: partly due to CKD but worsened by acute illness consider empiric EDUARDO during this hospitalization on oral iron follow trend of H/H (6) Diabetes mellitus with chronic kidney disease: Code(s): E11.22 - Type 2 diabetes mellitus with diabetic chronic kidney disease Status: Chronic Assessment and Plan: follow accuchecks glycemic control per hospitalists Will continue to follow. Subjective Date/time seen: 12/22/22 13:15 Interval history: Follow-up for chronic kidney disease and fluctuating creatinine. Respiratory status seems relatively stable at this time; remains off diuretics with improvement in renal function; swelling/edema appears better as well; no issues/events overnight. Exam Narrative: General: middle aged male in NAD Heart: normal S1 and S2; no rub Lungs: coarse with a few bibasilar crackles Abdomen: soft, nontender, nondistended, positive bowel sounds Extremities: no cyanosis or clubbing; s/p right BKA Skin: warm and intact Objective Data Vital Signs Vital Signs: Vital Signs Temp Pulse Resp BP Pulse Ox O2 Del Method O2 Flow Rate 12/22/22 11:54 98.0 F 80 20 120/90 93 12/22/22 09:14 95 12/22/22 08:00 97.7 F 42 L 24 H 123/70 93 12/22/22 08:20 94 96 Nasal Cannula 2 12/22/22 06:00 89 12/22/22 05:10 94 Nasal Cannula 2 12/22/22 04:00 95 20 100 Nasal Cannula 2 12/22/22 04:00 95 12/22/22 04:00 97.8 F 111 H 20 122/72 100 12/22/22 02:00 94 12/22/22 00:00 91 20 97 Nasal Cannula 2 12/22/22 00:00 96 12/22/22 00:00 98.0 F 91 20 119/64 95 12/21/22
[2022-12-22] MEDS: FERROUS SULFATE 324 MG TABLET PO ×2 (13:20→18:17)
[2022-12-22] MEDS: FAMOTIDINE 20 MG TABLET PO ×2 (13:21→21:13)
--- NOTE | 2022-12-22 13:35 | PCNWS ---
Weekly nutritional screen. Patient is tolerating current diet with adequate intake. No weight loss reported. No nutritional needs at this time.
[2022-12-22 14:40] LABS: Hypochromasia 1+ (NORMAL); Ovalocytes 1+ (NORMAL); Platelet Estimate Adequate (Adequate)
[2022-12-22 14:41] LABS: Anisocytosis 1+ (NORMAL); Schistocytes 1+ (NORMAL)
--- NOTE | 2022-12-22 15:33 | PM.IMPN ---
Progress Note: A&P Assessment and Plan (1) CHF (congestive heart failure): Qualifiers: Heart failure chronicity: acute Heart failure type: diastolic Qualified Code(s): I50.31 - Acute diastolic (congestive) heart failure Code(s): I50.9 - Heart failure, unspecified Status: Acute Assessment and Plan: Continue diuresis. Creatinine worsening but now stable continue gentle diuresis. So Lasix was to p.o. by Cardiology. Monitor BMP (2) Respiratory failure with hypoxia: Code(s): J96.91 - Respiratory failure, unspecified with hypoxia Status: Acute Assessment and Plan: Appreciate pulmonary input. CT chest without contrast shows bilateral pleural effusion. Thoracentesis ordered per Pulmonary. Hold Eliquis and Plavix for thoracentesis Patient will likely need outpatient sleep study as well as pulmonary function tests pt is on oxygen and BIPAP at night (3) Acute renal failure superimposed on chronic kidney disease: Code(s): N17.9 - Acute kidney failure, unspecified; N18.9 - Chronic kidney disease, unspecified Status: Acute Assessment and Plan: Creatinine worsening. Lasix switched to p.o.. Monitor BMP (4) HTN (hypertension): Code(s): I10 - Essential (primary) hypertension Status: Acute Assessment and Plan: Blood pressures improving with diuresis (5) Chronic anticoagulation: Code(s): Z79.01 - FPC (current) use of anticoagulants Status: Chronic Assessment and Plan: Continue (6) Anemia, chronic disease: Code(s): D63.8 - Anemia in other chronic diseases classified elsewhere Status: Acute Assessment and Plan: Stable, follow-up (7) Diabetes: Code(s): E11.9 - Type 2 diabetes mellitus without complications Status: Acute Assessment and Plan: Blood sugars reviewed and adequately controlled (8) Paroxysmal atrial fibrillation: Code(s): I48.0 - Paroxysmal atrial fibrillation Status: Chronic Assessment and Plan: Sinus rhythm and anticoagulated 12/17 transferred to medical floor (9) Coronary artery disease: Code(s): I25.10 - Atherosclerotic heart disease of [place] coronary artery without angina pectoris Status: Acute Subjective Date/time seen: 12/22/22 15:33 Interval history: 57-year-old male with insulin-dependent diabetes, coronary artery disease, chronic kidney disease, hypertension, COPD, recently discharged after being treated for left leg cellulitis presented with worsening SOB/leg swelling and scrotal swelling. His scrotal swelling has been to a point where he has pain in scrotal area. He denies medication non compliance. He follows up with Ent Surgeon at [facility]. Pt admitted for acute respiratory failure secondary to chf excerbation ct chest showed CT of the chest yesterday with mild pulmonary edema, moderate right and small left pleural effusion. Status post thoracentesis 12/21/2022 12/22/2022: Feeling better today. Swelling has improved. Breathing is improved. Discussed with newspaper clipper. Review of Systems Review of Systems: All systems reviewed & are unremarkable except as noted in HPI and below Exam Narrative: General alert tired on oxygen Chest with coarse breath sounds H/O of CABG Heart rate regular with no audible murmur Extremities no left foot edema, right with BKA and nonpitting edema of stump Abdomen protuberant but soft nontender with good bowel sounds no palpable masses Musculoskeletal right BKA as noted Objective Data Vital Signs Vital Signs: Vital Signs - 24 hr 12/21/22 16:00 12/21/22 16:00 12/21/22 16:00 Temperature 98.9 F Pulse Rate 94 96 Respiratory Rate 24 H Blood Pressure 134/77 Pulse Oximetry 93 93 Oxygen Delivery Nasal Cannula Oxygen Flow Rate 2 Fraction of Inspired Oxygen 12/21/22 18:00 12/21/22 19:52 12/21/22 21:31 Temperature 98.1 F Pulse Rate 100 100 9
[2022-12-22 16:38] LABS: Glucose Point of Care 175 mg/dl (65-105)
[2022-12-22 19:58] LABS: Glucose Point of Care 188 mg/dl (65-105)
[2022-12-22] MEDS: AMITRIPTYLINE HCL 25 MG TABLET 50 MG PO (21:12)
[2022-12-22] MEDS: QUEtiapine FUMARATE 12.5 MG TABLET PO (21:13)
[2022-12-22] MEDS: ATORVASTATIN 40 MG TABLET PO (21:13)
[2022-12-22] MEDS: traZODone HCL 50 MG TABLET 100 MG PO (21:13)
[2022-12-22] MEDS: INSULIN GLARGINE (*BKC) 100 UNITS/ML 10 UNITS SUB-Q (21:14)
[2022-12-23] VITALS (10 sets, daily range): BP systolic 130–158; BP diastolic 72–98; PULSE 83–124; RESP 18–22; TEMP 35.8–36.6; O2SAT 90–99
[2022-12-23] MEDS: LEVOTHYROXINE SODIUM 100 MCG TABLET PO (05:51)
[2022-12-23] MEDS: hydrALAZINE HCL 50 MG TABLET 100 MG PO ×3 (05:51→21:33)
[2022-12-23] MEDS: GABAPENTIN 100 MG CAPSULE PO ×3 (05:51→21:33)
[2022-12-23] MEDS: POLYMYXIN/TRIMETHOPRIM OPHTH 10 ML DROPS 1 DROP EACH EYE ×4 (05:52→21:33)
[2022-12-23] MEDS: traMADol HCL (*CRX) 50 MG TABLET PO ×2 (05:52→14:09)
--- NOTE | 2022-12-23 06:00 | PCRCNOTE ---
Apnea Link. I entered the pt room at 0530 to remove his apnea link and the apnea had been removed by the pt at 0430 per his nurse.
[2022-12-23 06:52] LABS: Basophils Percent Auto 0.5 % (0.2-1.2); Eosinophils Absolute Auto 0.1 K/mm3 (0-0.3); Eosinophils Percent Auto 0.8 % (0-4.4); Hematocrit 26.1 % (42.0-52.0); Hemoglobin 7.2 g/dL (14.0-18.0); Immature Granulocyte Absolute 0.03 K/mm3 (0.00-0.031); Immature Granulocyte Percent A 0.4 % (0-0.5); Lymphocytes Absolute Auto 0.27 K/mm3 (0.9-3.2); Lymphocytes Percent Auto 3.4 % (18.3-44.2); Mean Corpuscular HGB Conc 27.6 g/dl (32-36); Mean Corpuscular Hemoglobin 24.6 pg (26-34); Mean Corpuscular Volume 89.1 fl (80-100); Mean Platelet Volume 10.8 fl (7.4-10.4); Monocytes Absolute Auto 0.6 K/mm3 (0.1-0.6); Monocytes Percent Auto 7.7 % (2.6-8.5); Neutrophils Percent Auto 87.2 % (45.5-73.1); Platelet Count Result 173 k/mm3 (150-375); Red Blood Count 2.93 M/mm3 (4.6-6.20); Red Cell Distribution Width 17.7 % (11.5-14.5)
[2022-12-23 07:31] LABS: Alanine Aminotransferase 15 U/L (6-50); Albumin Level 3.4 g/dL (3.5-5.1); Alkaline Phosphatase 218 U/L (38-126); Anion Gap 9 mmol/L (8-16); Aspartate Amino Transferase 25 U/L (17-59); Bilirubin,Total 0.8 mg/dL (0.2-1.3); Blood Urea Nitrogen 79 mg/dL (9-20); Calcium 8.2 mg/dL (8.4-10.2); Carbon Dioxide 29 mmol/L (22-30); Chloride 99 mmol/L (98-107); Estimated CRCL calculation 36 ml/min; Estimated Glomerular Filt Rate 26; Glucose 119 mg/dL (65-110); Magnesium 2.5 mg/dL (1.6-2.3); Potassium 4.3 mmol/L (3.4-5.0); Sodium 137 mmol/L (137-145)
[2022-12-23 08:12] LABS: Anisocytosis 1+ (NORMAL); Hypochromasia 1+ (NORMAL); Ovalocytes 2+ (NORMAL); Platelet Estimate Adequate (Adequate); Schistocytes None Seen (NORMAL)
[2022-12-23 08:35] LABS: Glucose Point of Care 130 mg/dl (65-105)
[2022-12-23] MEDS: APIXABAN 5 MG TABLET PO ×2 (09:02→21:35)
[2022-12-23] MEDS: ASCORBIC ACID 500 MG TABLET PO (09:02)
[2022-12-23] MEDS: PYRIDOXINE HCL 50 MG TABLET PO (09:03)
[2022-12-23] MEDS: ISOSORBIDE MONONITRATE 30 MG TAB.ER.24H PO (09:03)
[2022-12-23] MEDS: busPIRone HCL 10 MG TABLET PO ×3 (09:03→17:17)
[2022-12-23] MEDS: polyethylene glycoL 3350 17 GM POWD.PACK PO (09:04)
[2022-12-23] MEDS: FLUTICASONE PROPIONATE 0.05% NA SPR 16 GM BTL (*BKC) 1 SPRAY NASAL (09:05)
[2022-12-23] MEDS: FAMOTIDINE 20 MG TABLET PO ×2 (09:06→21:34)
[2022-12-23] MEDS: METOPROLOL TARTRATE 50 MG TAB PO ×2 (09:06→21:34)
[2022-12-23] MEDS: TOLNAFTATE 1% POWDER 45 GM BTL 1 APPLIC TOPICAL ×2 (09:07→21:34)
[2022-12-23] MEDS: busPIRone HCL 5 MG TABLET PO ×3 (09:08→17:17)
[2022-12-23] MEDS: ASPIRIN 81 MG ENTERIC TABLET PO (09:08)
[2022-12-23] MEDS: UMECLIDINIUM/VILANTEROL 62.5-25 MCG ELLIPTA 1 PUFF INHALATION (09:28)
--- NOTE | 2022-12-23 09:54 | PM.PNPUL ---
Progress Note: A&P Assessment and Plan (1) Respiratory failure with hypoxia: Code(s): J96.91 - Respiratory failure, unspecified with hypoxia Status: Acute Assessment and Plan: The patient tells me he has not been on oxygen at home although the chart indicates otherwise. Patient?presented with fluid overload and also has symptoms of daytime somnolence which are probably related to sleep disordered breathing.? In fact his?RN noticed oxyhemoglobin desaturation with some respiratory pauses while the patient was receiving supplemental oxygen. The patient has no evidence of hypercarbic respiratory failure with a blood gas on 12/16/2022 of 7.43/44/49 on room air and previous blood gas on 11/23/2022 of 7.38/43/44 on room air. 12/19 Etiology of hypoxic respiratory failure includes fluid overload, possible COPD, possible interstitial lung disease from prior substance use, obesity with atelectasis, and sleep-related breathing disorder. When I entered the room today the patient was on 4 L nasal cannula saturation 95%. I decreased him to 2 L nasal cannula saturations were 91%. Plan: Agree with aggressive diuresis as tolerated by his cardiac and renal systems per card scraper and hospitalist teams. Patient has no wheezing and I do not feel COPD exacerbation or pneumonia are contributing to hypoxemic respiratory failure. given the high likelihood of a sleep-related breathing disorder patient was empirically started on BiPAP rate of 12 and pressures 12/8 while he was in the hospital. As mentioned above, CT scan of the chest today. Patient will need an outpatient sleep study prior to initiation of outpatient CPAP or BiPAP. Will obtain an overnight oximetry on 4 L nasal cannula to assess his oxygen needs on discharge without positive airway pressure. High-resolution CT scan of the chest demonstrated mild pulmonary edema, moderate sized right and small left pleural effusions, cardiomegaly, there was no bullous emphysema or evidence of interstitial lung disease. Eliquis and Plavix were held for eventual thoracentesis. 12/20 moderate sized right pleural effusion with compressive atelectasis likely contributing to his hypoxemia. Unable to perform right thoracentesis as POA could not be reached for consent. 12/21 patient wore BiPAP 12/8 last night without issues. When I walked into the room the patient's oxygen was on his forehead and his saturations were 85-90. Patient placed on 2 L. awaiting thoracentesis. Patient wore 2 L nasal cannula overnight and said he slept well. States his breathing is good. Currently saturations on 2 L are 97%. Patient had overnight oximetry on 2 L nasal cannula. Average saturation 94%. Low saturation 80%. Time with saturation less than or equal to 88% was 27 minutes or 8% of the monitored time. Oxygen desaturation index is 73.1. Patient had a chest x-ray that demonstrates a small right pleural effusion with congestion. Right thoracentesis performed with 100 mL of clear yellow fluid removed. PH 7.50, g stain few white blood cells no organism seen. Cell differential neutrophils 53, lymphocytes 9, monocytes 18, macrophages 8, mesothelial cells 13, Cytology negative. 12/22 Patient wore 2 L nasal cannula overnight and said he slept well. States his breathing is good. Currently saturations on 2 L are 97%. Patient had overnight oximetry on 2 L nasal cannula. Average saturation 94%. Low saturation 80%. Time with saturation less than or equal to 88% was 27 minutes or 8% of the monitored time. Oxygen desaturation index is 73.1. Patient had a chest x-ray that demonstrates a small right pleural effusion with congestion. Lasix on hold, weight 112.2 kilos, cumulative diuresis since admission -16 L. Plan: I will repeat overnight oximetry on 4 L. I suspect patient has sleep-related breathing disorder and will need an outpatient sleep study. Regarding his fluid overload and pulmonary edema his acute kidney injury is limiting
[2022-12-23 11:44] LABS: Glucose Point of Care 187 mg/dl (65-105)
--- NOTE | 2022-12-23 12:51 | P.PNNP_ITS ---
Progress Note: A&P Assessment and Plan (1) Chronic kidney disease, stage IV (severe): Code(s): N18.4 - Chronic kidney disease, stage 4 (severe) Status: Chronic Assessment and Plan: * creatinine has been fluctuating ~ 2.0 - 2.5mg/dl since earlier this year * seen by me as a new patient in early November 2022 * suspected etiology of CKD due to hypertension, diabetes, and vascular disease * however, his CHF and need for diuresis as well as suspected TIERRA likely playing a role * evaluation noted: * renal ultrasound normal * urine electrolytes look prerena (inspite of clear evidence of volume overload) * urine eosinophils negative * serological testing pending * may have to accept a higher creatinine due to necessity of diuretics to maintain his volume status * follow repeat labs and UOP (2) CHF (congestive heart failure): Qualifiers: Heart failure chronicity: acute Heart failure type: diastolic Qualified Code(s): I50.31 - Acute diastolic (congestive) heart failure Code(s): I50.9 - Heart failure, unspecified Status: Acute Assessment and Plan: * acute exacerbation * appears to be right sided heart failure + diastolic dysfunction * Echo results noted -- normal LVSF, EF 50-55%, mild TR, no other significant valve pathology * presented with dyspnea on exertion, abdominal distention and scrotal edema * reasonable diuresis since admission but limited now by renal dysfunction (diuretics on hold) * follow I/Os, daily weights, and respiratory status * s/p right thoracentesis (on 12/21/22) * suspect will eventually to restart diuretics * Cardiology following (3) Respiratory failure with hypoxia: Code(s): J96.91 - Respiratory failure, unspecified with hypoxia Status: Acute Assessment and Plan: * multifactorial: * possible COPD * suspected TIERAR/OHS * fluid/volume overload * CHF * anemia * Pulmonary following with recommendations noted * follow respiratory status (4) Hypertension: Qualifiers: Hypertension type: primary hypertension Qualified Code(s): I10 - Essential (primary) hypertension Code(s): I10 - Essential (primary) hypertension Status: Chronic Assessment and Plan: * reasonable control at this time * follow trend of hemodynamics (5) Anemia: Code(s): D64.9 - Anemia, unspecified Status: Chronic Assessment and Plan: * partly due to CKD but worsened by acute illness * consider empiric EDUARDO during this hospitalization * on oral iron * follow trend of H/H (6) Diabetes mellitus with chronic kidney disease: Code(s): E11.22 - Type 2 diabetes mellitus with diabetic chronic kidney disease Status: Chronic Assessment and Plan: * follow accuchecks * glycemic control per hospitalists Will continue to follow. Subjective Date/time seen: 12/23/22 12:51 Interval history: Follow-up for chronic kidney disease and fluctuating creatinine. Renal function continues to improve likely due to holding diuretic therapy; swelling/edema stable and better in comparison to admission; states breathing is okay but seems a little short of breath. Exam Narrative: General: middle aged male in NAD Heart: normal S1 and S2; no rub Lungs: coarse with a few bibasilar crackles Abdomen: soft, nontender, nondistended, positive bowel sounds Extremities: no cyanosis or clubbing; s/p right BKA Skin: no rash
--- NOTE | 2022-12-23 12:51 | PM.PNNEP ---
Progress Note: A&P Assessment and Plan (1) Chronic kidney disease, stage IV (severe): Code(s): N18.4 - Chronic kidney disease, stage 4 (severe) Status: Chronic Assessment and Plan: creatinine has been fluctuating ~ 2.0 - 2.5mg/dl since earlier this year seen by me as a new patient in early November 2022 suspected etiology of CKD due to hypertension, diabetes, and vascular disease however, his CHF and need for diuresis as well as suspected TIERRA likely playing a role evaluation noted: renal ultrasound normal urine electrolytes look prerena (inspite of clear evidence of volume overload) urine eosinophils negative serological testing pending may have to accept a higher creatinine due to necessity of diuretics to maintain his volume status follow repeat labs and UOP (2) CHF (congestive heart failure): Qualifiers: Heart failure chronicity: acute Heart failure type: diastolic Qualified Code(s): I50.31 - Acute diastolic (congestive) heart failure Code(s): I50.9 - Heart failure, unspecified Status: Acute Assessment and Plan: acute exacerbation appears to be right sided heart failure + diastolic dysfunction Echo results noted -- normal LVSF, EF 50-55%, mild TR, no other significant valve pathology presented with dyspnea on exertion, abdominal distention and scrotal edema reasonable diuresis since admission but limited now by renal dysfunction (diuretics on hold) follow I/Os, daily weights, and respiratory status s/p right thoracentesis (on 12/21/22) suspect will eventually to restart diuretics Cardiology following (3) Respiratory failure with hypoxia: Code(s): J96.91 - Respiratory failure, unspecified with hypoxia Status: Acute Assessment and Plan: multifactorial: possible COPD suspected TIERRA/OHS fluid/volume overload CHF anemia Pulmonary following with recommendations noted follow respiratory status (4) Hypertension: Qualifiers: Hypertension type: primary hypertension Qualified Code(s): I10 - Essential (primary) hypertension Code(s): I10 - Essential (primary) hypertension Status: Chronic Assessment and Plan: reasonable control at this time follow trend of hemodynamics (5) Anemia: Code(s): D64.9 - Anemia, unspecified Status: Chronic Assessment and Plan: partly due to CKD but worsened by acute illness consider empiric EDUARDO during this hospitalization on oral iron follow trend of H/H (6) Diabetes mellitus with chronic kidney disease: Code(s): E11.22 - Type 2 diabetes mellitus with diabetic chronic kidney disease Status: Chronic Assessment and Plan: follow accuchecks glycemic control per hospitalists Will continue to follow. Subjective Date/time seen: 12/23/22 12:51 Interval history: Follow-up for chronic kidney disease and fluctuating creatinine. Renal function continues to improve likely due to holding diuretic therapy; swelling/edema stable and better in comparison to admission; states breathing is okay but seems a little short of breath. Exam Narrative: General: middle aged male in NAD Heart: normal S1 and S2; no rub Lungs: coarse with a few bibasilar crackles Abdomen: soft, nontender, nondistended, positive bowel sounds Extremities: no cyanosis or clubbing; s/p right BKA Skin: no rash Objective Data Vital Signs Vital Signs: Vital Signs Temp Pulse Resp BP Pulse Ox O2 Del Method O2 Flow Rate 12/23/22 11:00 98 Nasal Cannula 2 12/23/22 10:34 96.4 F L 87 18 132/98 H 98 12/23/22 09:29 95 Nasal Cannula 2 12/23/22 08:00 97.8 F 124 H 18 145/87 H 98 12/23/22 04:00 100 12/23/22 04:00 97.6 F 93 22 H 139/81 98 12/23/22 01:36 95 Nasal Cannula 4 12/22/22 23:52 94 20 100 Nasal Cannula 4 12/22/22 23:51 94 12/22/22 23:26 98.6 F 102
--- NOTE | 2022-12-23 13:38 | PM.IMPN ---
Progress Note: A&P Assessment and Plan (1) CHF (congestive heart failure): Qualifiers: Heart failure chronicity: acute Heart failure type: diastolic Qualified Code(s): I50.31 - Acute diastolic (congestive) heart failure Code(s): I50.9 - Heart failure, unspecified Status: Acute Assessment and Plan: Continue diuresis. Creatinine worsening but now stable continue gentle diuresis. So Lasix was to p.o. by Cardiology. Monitor BMP Lasix currently on hold due to worsening renal function. Potentially restart today if okay with Nephrology recheck chest x-ray today renal function stable (2) Respiratory failure with hypoxia: Code(s): J96.91 - Respiratory failure, unspecified with hypoxia Status: Acute Assessment and Plan: Appreciate pulmonary input. CT chest without contrast shows bilateral pleural effusion. Thoracentesis ordered per Pulmonary. Hold Eliquis and Plavix for thoracentesis Patient will likely need outpatient sleep study as well as pulmonary function tests pt is on oxygen and BIPAP at night currently Discussed with Pulmonary he will need sleep study as an outpatient prior to evaluation for (3) Acute renal failure superimposed on chronic kidney disease: Code(s): N17.9 - Acute kidney failure, unspecified; N18.9 - Chronic kidney disease, unspecified Status: Acute Assessment and Plan: Creatinine worsening. Lasix switched to p.o. which is currently on hold. Monitor BMP (4) HTN (hypertension): Code(s): I10 - Essential (primary) hypertension Status: Acute Assessment and Plan: Blood pressures improving with diuresis (5) Chronic anticoagulation: Code(s): Z79.01 - long term care phlebotomist (current) use of anticoagulants Status: Chronic Assessment and Plan: Continue (6) Anemia, chronic disease: Code(s): D63.8 - Anemia in other chronic diseases classified elsewhere Status: Acute Assessment and Plan: Stable, follow-up (7) Diabetes: Code(s): E11.9 - Type 2 diabetes mellitus without complications Status: Acute Assessment and Plan: Blood sugars reviewed and adequately controlled (8) Paroxysmal atrial fibrillation: Code(s): I48.0 - Paroxysmal atrial fibrillation Status: Chronic Assessment and Plan: Sinus rhythm and anticoagulated 12/17 transferred to medical floor (9) Coronary artery disease: Code(s): I25.10 - Atherosclerotic heart disease of [place] coronary artery without angina pectoris Status: Acute Subjective Date/time seen: 12/23/22 13:38 Interval history: 57-year-old male with insulin-dependent diabetes, coronary artery disease, chronic kidney disease, hypertension, COPD, recently discharged after being treated for left leg cellulitis presented with worsening SOB/leg swelling and scrotal swelling. His scrotal swelling has been to a point where he has pain in scrotal area. He denies medication non compliance. He follows up with [facility] at [facility]. Pt admitted for acute respiratory failure secondary to chf excerbation ct chest showed CT of the chest yesterday with mild pulmonary edema, moderate right and small left pleural effusion. Status post thoracentesis 12/21/2022 12/22/2022: Feeling better today. Swelling has improved. Breathing is improved. Discussed with builder's labourer. 12/23/2022 no overnight events. Still feels short of breath on exertion. Oxygen requirement has lowered. No leg swelling. Discussed with Pulmonary. Review of Systems Review of Systems: All systems reviewed & are unremarkable except as noted in HPI and below Exam Narrative: General alert tired on oxygen Chest with coarse breath sounds H/O of CABG Heart rate regular with no audible murmur Extremities no left foot edema, right with BKA and nonpitting edema of stump Abdomen protuberant but soft nontender with good bowel sounds no palpable masses Musculoskelet
[2022-12-23] MEDS: FERROUS SULFATE 324 MG TABLET PO ×2 (14:09→17:17)
[2022-12-23] MEDS: EPOETIN ALFA-EPBX 20,000 UNITS/ML VIAL 20000 UNITS SUB-Q (15:26)
[2022-12-23 17:06] LABS: Glucose Point of Care 226 mg/dl (65-105)
[2022-12-23] MEDS: INSULIN ASPART (*BKC) 100 UNITS/ML SUB-Q (17:16)
[2022-12-23 21:30] LABS: Glucose Point of Care 140 mg/dl (65-105)
[2022-12-23] MEDS: traZODone HCL 50 MG TABLET 100 MG PO (21:33)
[2022-12-23] MEDS: QUEtiapine FUMARATE 12.5 MG TABLET PO (21:33)
[2022-12-23] MEDS: ATORVASTATIN 40 MG TABLET PO (21:34)
[2022-12-23] MEDS: INSULIN GLARGINE (*BKC) 100 UNITS/ML 10 UNITS SUB-Q (21:35)
[2022-12-23] MEDS: AMITRIPTYLINE HCL 25 MG TABLET 50 MG PO (21:35)
[2022-12-24] VITALS (14 sets, daily range): BP systolic 116–150; BP diastolic 77–106; PULSE 81–124; RESP 18–23; TEMP 36.2–37.6; O2SAT 98–100
--- NOTE | 2022-12-24 00:01 | PC.NURSE ---
send communication order to pharmacy for flonase, not on floor, med missing
[2022-12-24] MEDS: POLYMYXIN/TRIMETHOPRIM OPHTH 10 ML DROPS 1 DROP EACH EYE ×5 (04:42→20:02)
[2022-12-24] MEDS: hydrALAZINE HCL 50 MG TABLET 100 MG PO ×3 (05:27→22:08)
[2022-12-24] MEDS: LEVOTHYROXINE SODIUM 100 MCG TABLET PO (05:27)
[2022-12-24] MEDS: GABAPENTIN 100 MG CAPSULE PO ×3 (05:27→22:08)
[2022-12-24 06:34] LABS: Basophils Percent Auto 0.3 % (0.2-1.2); Eosinophils Absolute Auto 0.1 K/mm3 (0-0.3); Eosinophils Percent Auto 0.6 % (0-4.4); Hematocrit 24.3 % (42.0-52.0); Immature Granulocyte Absolute 0.05 K/mm3 (0.00-0.031); Immature Granulocyte Percent A 0.6 % (0-0.5); Lymphocytes Absolute Auto 0.33 K/mm3 (0.9-3.2); Lymphocytes Percent Auto 3.7 % (18.3-44.2); Mean Corpuscular HGB Conc 28.8 g/dl (32-36); Mean Corpuscular Hemoglobin 23.7 pg (26-34); Mean Corpuscular Volume 82.4 fl (80-100); Mean Platelet Volume 10.6 fl (7.4-10.4); Monocytes Absolute Auto 0.6 K/mm3 (0.1-0.6); Monocytes Percent Auto 6.7 % (2.6-8.5); Neutrophils Absolute Auto 7.8 K/mm3 (1.3-6.7); Neutrophils Percent Auto 88.1 % (45.5-73.1); Platelet Count Result 206 k/mm3 (150-375); Red Blood Count 2.95 M/mm3 (4.6-6.20); Red Cell Distribution Width 17.2 % (11.5-14.5); White Blood Count 8.9 K/mm3 (4.5-10.0)
[2022-12-24 06:39] LABS: Alanine Aminotransferase 15 U/L (6-50); Albumin Level 3.5 g/dL (3.5-5.1); Alkaline Phosphatase 211 U/L (38-126); Anion Gap 7 mmol/L (8-16); Aspartate Amino Transferase 21 U/L (17-59); Bilirubin,Total 0.8 mg/dL (0.2-1.3); Blood Urea Nitrogen 76 mg/dL (9-20); Calcium 8.2 mg/dL (8.4-10.2); Carbon Dioxide 33 mmol/L (22-30); Chloride 98 mmol/L (98-107); Estimated CRCL calculation 36 ml/min; Estimated Glomerular Filt Rate 26; Glucose 122 mg/dL (65-110); Magnesium 2.5 mg/dL (1.6-2.3); Potassium 3.9 mmol/L (3.4-5.0); Sodium 138 mmol/L (137-145)
[2022-12-24 07:30] LABS: Anisocytosis 1+ (NORMAL); Ovalocytes 1+ (NORMAL); Platelet Estimate Adequate (Adequate); Schistocytes None Seen (NORMAL)
[2022-12-24 07:31] LABS: Hypochromasia 2+ (NORMAL)
[2022-12-24 07:47] LABS: Glucose Point of Care 120 mg/dl (65-105)
[2022-12-24] MEDS: polyethylene glycoL 3350 17 GM POWD.PACK PO (08:44)
[2022-12-24] MEDS: PYRIDOXINE HCL 50 MG TABLET PO (08:44)
[2022-12-24] MEDS: FAMOTIDINE 20 MG TABLET PO ×2 (08:44→20:02)
[2022-12-24] MEDS: ASCORBIC ACID 500 MG TABLET PO (08:44)
[2022-12-24] MEDS: METOPROLOL TARTRATE 50 MG TAB PO ×2 (08:45→20:02)
[2022-12-24] MEDS: busPIRone HCL 10 MG TABLET PO ×3 (08:45→16:54)
[2022-12-24] MEDS: ISOSORBIDE MONONITRATE 30 MG TAB.ER.24H PO (08:45)
[2022-12-24] MEDS: busPIRone HCL 5 MG TABLET PO ×3 (08:45→16:54)
[2022-12-24] MEDS: ASPIRIN 81 MG ENTERIC TABLET PO (08:45)
[2022-12-24] MEDS: TOLNAFTATE 1% POWDER 45 GM BTL 1 APPLIC TOPICAL ×2 (08:46→20:03)
[2022-12-24] MEDS: FLUTICASONE PROPIONATE 0.05% NA SPR 16 GM BTL (*BKC) 1 SPRAY NASAL ×2 (08:48→20:03)
[2022-12-24] MEDS: EPOETIN ALFA-EPBX 10,000 UNITS/ML VIAL 10000 UNITS SUB-Q (08:48)
--- NOTE | 2022-12-24 10:51 | PCPTNOTE ---
Attempted physical therapy treatment this date; pt refused at this time. Pt is difficult to understand, however pt did indicate he was in pain, and RN was notified.
[2022-12-24 11:45] LABS: Glucose Point of Care 120 mg/dl (65-105)
[2022-12-24] MEDS: FERROUS SULFATE 324 MG TABLET PO ×2 (11:53→16:54)
[2022-12-24] MEDS: FUROSEMIDE INJ 40 MG/4 ML VIAL IV PUSH ×2 (11:54→16:54)
[2022-12-24 12:06] LABS: Alveolar/Arterial O2 Gradient 53.3 mmHg; Base Excess ABG 6.3 mEq/l (+/-2.0); Fractional Inspired Oxygen 28 %; HCO3 ABG 31.3 mEq/l (22.0-26.0); Oxygen Content ABG 10.9 %vol (16.0-22.0); Oxyhemoglobin 95.4 % THb (90.0-100.0); PCO2 ABG 48.1 mmHg (35.0-45.0); PO2 ABG 89.6 mmHg (80.0-100.0); pH ABG 7.431 (7.350-7.450)
[2022-12-24 12:11] LABS: Device NASAL CANNULA; Modified Allen's Test Pass; Site Drawn LEFT RADIAL
--- NOTE | 2022-12-24 12:54 | PM.PNNEP ---
Progress Note: A&P Assessment and Plan (1) Chronic kidney disease, stage IV (severe): Code(s): N18.4 - Chronic kidney disease, stage 4 (severe) Status: Chronic Assessment and Plan: creatinine has been fluctuating ~ 2.0 - 2.5mg/dl since earlier this year seen by me as a new patient in early November 2022 suspected etiology of CKD due to hypertension, diabetes, and vascular disease however, his CHF and need for diuresis as well as suspected TIERRA likely playing a role evaluation noted: renal ultrasound normal urine electrolytes look prerena (inspite of clear evidence of volume overload) urine eosinophils negative serological testing pending may have to accept a higher creatinine due to necessity of diuretics to maintain his volume status follow repeat labs and UOP (2) CHF (congestive heart failure): Qualifiers: Heart failure chronicity: acute Heart failure type: diastolic Qualified Code(s): I50.31 - Acute diastolic (congestive) heart failure Code(s): I50.9 - Heart failure, unspecified Status: Acute Assessment and Plan: acute exacerbation appears to be right sided heart failure + diastolic dysfunction Echo results noted -- normal LVSF, EF 50-55%, mild TR, no other significant valve pathology presented with dyspnea on exertion, abdominal distention and scrotal edema reasonable diuresis since admission but limited now by renal dysfunction (diuretics on hold) follow I/Os, daily weights, and respiratory status s/p right thoracentesis (on 12/21/22) suspect will need to restart diuretics Cardiology following (3) Respiratory failure with hypoxia: Code(s): J96.91 - Respiratory failure, unspecified with hypoxia Status: Acute Assessment and Plan: multifactorial: possible COPD suspected TIERRA/OHS fluid/volume overload CHF anemia Pulmonary following with recommendations noted follow respiratory status (4) Hypertension: Qualifiers: Hypertension type: primary hypertension Qualified Code(s): I10 - Essential (primary) hypertension Code(s): I10 - Essential (primary) hypertension Status: Chronic Assessment and Plan: reasonable control at this time follow trend of hemodynamics (5) Anemia: Code(s): D64.9 - Anemia, unspecified Status: Chronic Assessment and Plan: partly due to CKD but worsened by acute illness on oral iron on Epogen follow trend of H/H (6) Diabetes mellitus with chronic kidney disease: Code(s): E11.22 - Type 2 diabetes mellitus with diabetic chronic kidney disease Status: Chronic Assessment and Plan: follow accuchecks glycemic control per hospitalists Will continue to follow. Subjective Date/time seen: 12/24/22 12:54 Interval history: Follow-up for chronic kidney disease and fluctuating creatinine. Although denies any complaints, he seems a bit more short of breath at the time of my visit; appears to have some element of conversational dyspnea; renal function better with holding diuretics; no acute distress noted. Exam Narrative: General: middle aged male in NAD Heart: normal S1 and S2; no rub Lungs: coarse with a few bibasilar crackles Abdomen: soft, nontender, nondistended, positive bowel sounds Extremities: no cyanosis or clubbing; s/p right BKA Skin: no nodules Objective Data Vital Signs Vital Signs: Vital Signs 12/23/22 08:00 12/23/22 09:29 12/23/22 10:34 Temperature 97.8 F 96.4 F L Pulse Rate 124 H 87 Respiratory Rate 18 18 Blood Pressure 145/87 H 132/98 H Pulse Oximetry 98 95 98 Oxygen Delivery Nasal Cannula Oxygen Flow Rate 2 Fraction of Inspired Oxygen 12/23/22 11:00 12/23/22 12:00 12/23/22 16:00 Temperature Pulse Rate 88 91 Respiratory Rate Blood Pressure Pulse Oximetry 98 Oxygen Delivery Nasal Cannula Oxygen Flow Rate 2 Fraction of Inspir
--- NOTE | 2022-12-24 12:54 | P.PNNP_ITS ---
Progress Note: A&P Assessment and Plan (1) Chronic kidney disease, stage IV (severe): Code(s): N18.4 - Chronic kidney disease, stage 4 (severe) Status: Chronic Assessment and Plan: * creatinine has been fluctuating ~ 2.0 - 2.5mg/dl since earlier this year * seen by me as a new patient in early November 2022 * suspected etiology of CKD due to hypertension, diabetes, and vascular disease * however, his CHF and need for diuresis as well as suspected TIERRA likely playing a role * evaluation noted: * renal ultrasound normal * urine electrolytes look prerena (inspite of clear evidence of volume overload) * urine eosinophils negative * serological testing pending * may have to accept a higher creatinine due to necessity of diuretics to maintain his volume status * follow repeat labs and UOP (2) CHF (congestive heart failure): Qualifiers: Heart failure chronicity: acute Heart failure type: diastolic Qualified Code(s): I50.31 - Acute diastolic (congestive) heart failure Code(s): I50.9 - Heart failure, unspecified Status: Acute Assessment and Plan: * acute exacerbation * appears to be right sided heart failure + diastolic dysfunction * Echo results noted -- normal LVSF, EF 50-55%, mild TR, no other significant valve pathology * presented with dyspnea on exertion, abdominal distention and scrotal edema * reasonable diuresis since admission but limited now by renal dysfunction (diuretics on hold) * follow I/Os, daily weights, and respiratory status * s/p right thoracentesis (on 12/21/22) * suspect will need to restart diuretics * Cardiology following (3) Respiratory failure with hypoxia: Code(s): J96.91 - Respiratory failure, unspecified with hypoxia Status: Acute Assessment and Plan: * multifactorial: * possible COPD * suspected TIERRA/OHS * fluid/volume overload * CHF * anemia * Pulmonary following with recommendations noted * follow respiratory status (4) Hypertension: Qualifiers: Hypertension type: primary hypertension Qualified Code(s): I10 - Essential (primary) hypertension Code(s): I10 - Essential (primary) hypertension Status: Chronic Assessment and Plan: * reasonable control at this time * follow trend of hemodynamics (5) Anemia: Code(s): D64.9 - Anemia, unspecified Status: Chronic Assessment and Plan: * partly due to CKD but worsened by acute illness * on oral iron * on Epogen * follow trend of H/H (6) Diabetes mellitus with chronic kidney disease: Code(s): E11.22 - Type 2 diabetes mellitus with diabetic chronic kidney disease Status: Chronic Assessment and Plan: * follow accuchecks * glycemic control per hospitalists Will continue to follow. Subjective Date/time seen: 12/24/22 12:54 Interval history: Follow-up for chronic kidney disease and fluctuating creatinine. Although denies any complaints, he seems a bit more short of breath at the time of my visit; appears to have some element of conversational dyspnea; renal function better with holding diuretics; no acute distress noted. Exam Narrative: General: middle aged male in NAD Heart: normal S1 and S2; no rub Lungs: coarse with a few bibasilar crackles Abdomen: soft, nontender, nondistended, positive bowel sounds Extremities: no cyanosis or clubbing; s/p right BKA Skin: no nodules Objective Da
--- NOTE | 2022-12-24 14:00 | PM.IMPN ---
Progress Note: A&P Assessment and Plan (1) CHF (congestive heart failure): Qualifiers: Heart failure chronicity: acute Heart failure type: diastolic Qualified Code(s): I50.31 - Acute diastolic (congestive) heart failure Code(s): I50.9 - Heart failure, unspecified Status: Acute Assessment and Plan: Continue diuresis. Creatinine worsening but now stable continue gentle diuresis. So Lasix was to p.o. by Cardiology. Monitor BMP Lasix currently on hold due to worsening renal function. Recheck chest x-ray with congestive changes renal function stable ABG today Will give IV Lasix x1 and start 40 mg IV b.i.d. (2) Respiratory failure with hypoxia: Code(s): J96.91 - Respiratory failure, unspecified with hypoxia Status: Acute Assessment and Plan: Appreciate pulmonary input. CT chest without contrast shows bilateral pleural effusion. Thoracentesis ordered per Pulmonary. Hold Eliquis and Plavix for thoracentesis Patient will likely need outpatient sleep study as well as pulmonary function tests pt is on oxygen and BIPAP at night currently Discussed with Pulmonary he will need sleep study as an outpatient prior to evaluation for (3) Acute renal failure superimposed on chronic kidney disease: Code(s): N17.9 - Acute kidney failure, unspecified; N18.9 - Chronic kidney disease, unspecified Status: Acute Assessment and Plan: Creatinine worsening. Lasix switched to p.o. which is currently on hold. Monitor BMP restart Lasix (4) HTN (hypertension): Code(s): I10 - Essential (primary) hypertension Status: Acute Assessment and Plan: Blood pressures improving with diuresis (5) Chronic anticoagulation: Code(s): Z79.01 - [facility] (current) use of anticoagulants Status: Chronic Assessment and Plan: Continue (6) Anemia, chronic disease: Code(s): D63.8 - Anemia in other chronic diseases classified elsewhere Status: Acute Assessment and Plan: Stable, follow-up Mild hematuria reported likely traumatic H&H 7.0 will repeat again in the evening if he needs any transfusion however could be dilutional with fluid overload (7) Diabetes: Code(s): E11.9 - Type 2 diabetes mellitus without complications Status: Acute Assessment and Plan: Blood sugars reviewed and adequately controlled (8) Paroxysmal atrial fibrillation: Code(s): I48.0 - Paroxysmal atrial fibrillation Status: Chronic Assessment and Plan: Sinus rhythm and anticoagulated 12/17 transferred to medical floor (9) Coronary artery disease: Code(s): I25.10 - Atherosclerotic heart disease of [place] coronary artery without angina pectoris Status: Acute Subjective Date/time seen: 12/24/22 14:00 Interval history: 57-year-old male with insulin-dependent diabetes, coronary artery disease, chronic kidney disease, hypertension, COPD, recently discharged after being treated for left leg cellulitis presented with worsening SOB/leg swelling and scrotal swelling. His scrotal swelling has been to a point where he has pain in scrotal area. He denies medication non compliance. He follows up with [facility] at [facility]. Pt admitted for acute respiratory failure secondary to chf excerbation ct chest showed CT of the chest yesterday with mild pulmonary edema, moderate right and small left pleural effusion. Status post thoracentesis 12/21/2022 12/22/2022: Feeling better today. Swelling has improved. Breathing is improved. Discussed with back office medical assistant. 12/23/2022 no overnight events. Still feels short of breath on exertion. Oxygen requirement has lowered. No leg swelling. Discussed with Pulmonary. 12/24/2022: Reports some headache. States he is feeling okay. He is visibly short of breath. Denies any chest pain. Discussed with Nephrology. He has not been using his BiPAP at night Review of Systems Review of Systems
[2022-12-24 15:42] LABS: Hematocrit 25.6 % (42.0-52.0); Hemoglobin 7.6 g/dL (14.0-18.0)
[2022-12-24 16:49] LABS: Glucose Point of Care 115 mg/dl (65-105)
[2022-12-24 19:16] LABS: Glucose Pleural Fluid 91 mg/dL; LDH Pleural Fluid 83 U/L; Total Protein Pleural Fluid <3.0 g/dL
[2022-12-24] MEDS: ATORVASTATIN 40 MG TABLET PO (20:01)
[2022-12-24] MEDS: traMADol HCL (*CRX) 50 MG TABLET PO (20:01)
[2022-12-24] MEDS: traZODone HCL 50 MG TABLET 100 MG PO (20:02)
[2022-12-24] MEDS: APIXABAN 5 MG TABLET PO (20:02)
[2022-12-24] MEDS: QUEtiapine FUMARATE 12.5 MG TABLET PO (20:02)
[2022-12-24] MEDS: AMITRIPTYLINE HCL 25 MG TABLET 50 MG PO (20:03)
[2022-12-24] MEDS: INSULIN GLARGINE (*BKC) 100 UNITS/ML 10 UNITS SUB-Q (20:03)
[2022-12-24 20:12] LABS: Glucose Point of Care 147 mg/dl (65-105)
--- NOTE | 2022-12-24 20:36 | PC.NURSE ---
pt broke other rios tubing replaced with new rios catheter
[2022-12-25] VITALS (18 sets, daily range): BP systolic 134–151; BP diastolic 53–85; PULSE 62–122; RESP 14–27; TEMP 36.5–37.2; O2SAT 92–96
[2022-12-25] MEDS: LEVOTHYROXINE SODIUM 100 MCG TABLET PO (05:02)
[2022-12-25] MEDS: POLYMYXIN/TRIMETHOPRIM OPHTH 10 ML DROPS 1 DROP EACH EYE ×5 (05:02→20:09)
[2022-12-25] MEDS: hydrALAZINE HCL 50 MG TABLET 100 MG PO ×3 (05:02→20:05)
[2022-12-25] MEDS: traMADol HCL (*CRX) 50 MG TABLET PO ×2 (05:02→20:03)
[2022-12-25] MEDS: GABAPENTIN 100 MG CAPSULE PO ×3 (05:02→20:07)
[2022-12-25 06:30] LABS: Basophils Absolute Auto 0.1 K/mm3 (0.0-0.1); Basophils Percent Auto 0.6 % (0.2-1.2); Eosinophils Absolute Auto 0.1 K/mm3 (0-0.3); Eosinophils Percent Auto 1.3 % (0-4.4); Hematocrit 24.3 % (42.0-52.0); Hemoglobin 7.1 g/dL (14.0-18.0); Immature Granulocyte Absolute 0.07 K/mm3 (0.00-0.031); Immature Granulocyte Percent A 0.9 % (0-0.5); Lymphocytes Absolute Auto 0.43 K/mm3 (0.9-3.2); Lymphocytes Percent Auto 5.4 % (18.3-44.2); Mean Corpuscular HGB Conc 29.2 g/dl (32-36); Mean Corpuscular Volume 82.1 fl (80-100); Mean Platelet Volume 10.1 fl (7.4-10.4); Monocytes Absolute Auto 0.6 K/mm3 (0.1-0.6); Neutrophils Absolute Auto 6.7 K/mm3 (1.3-6.7); Neutrophils Percent Auto 83.8 % (45.5-73.1); Platelet Count Result 210 k/mm3 (150-375); Red Blood Count 2.96 M/mm3 (4.6-6.20); Red Cell Distribution Width 17.2 % (11.5-14.5)
[2022-12-25 06:50] LABS: Alanine Aminotransferase 15 U/L (6-50); Albumin Level 3.3 g/dL (3.5-5.1); Alkaline Phosphatase 211 U/L (38-126); Anion Gap 7 mmol/L (8-16); Aspartate Amino Transferase 20 U/L (17-59); Bilirubin,Total 0.8 mg/dL (0.2-1.3); Blood Urea Nitrogen 74 mg/dL (9-20); Calcium 8.1 mg/dL (8.4-10.2); Carbon Dioxide 31 mmol/L (22-30); Chloride 100 mmol/L (98-107); Estimated CRCL calculation 36 ml/min; Estimated Glomerular Filt Rate 26; Glucose 117 mg/dL (65-110); Magnesium 2.6 mg/dL (1.6-2.3); Potassium 3.7 mmol/L (3.4-5.0); Sodium 138 mmol/L (137-145)
[2022-12-25 06:56] LABS: Platelet Estimate Adequate (Adequate)
[2022-12-25 06:57] LABS: Anisocytosis 1+ (NORMAL); Hypochromasia 3+ (NORMAL); Ovalocytes 1+ (NORMAL); Schistocytes None Seen (NORMAL)
[2022-12-25 07:41] LABS: Glucose Point of Care 125 mg/dl (65-105)
[2022-12-25] MEDS: polyethylene glycoL 3350 17 GM POWD.PACK PO (08:42)
[2022-12-25] MEDS: ISOSORBIDE MONONITRATE 30 MG TAB.ER.24H PO (08:42)
[2022-12-25] MEDS: APIXABAN 5 MG TABLET PO ×2 (08:43→20:05)
[2022-12-25] MEDS: FAMOTIDINE 20 MG TABLET PO ×2 (08:43→20:04)
[2022-12-25] MEDS: busPIRone HCL 5 MG TABLET PO ×3 (08:43→16:48)
[2022-12-25] MEDS: ASCORBIC ACID 500 MG TABLET PO (08:43)
[2022-12-25] MEDS: METOPROLOL TARTRATE 50 MG TAB PO ×2 (08:43→20:04)
[2022-12-25] MEDS: PYRIDOXINE HCL 50 MG TABLET PO (08:43)
[2022-12-25] MEDS: FUROSEMIDE INJ 40 MG/4 ML VIAL IV PUSH ×2 (08:43→16:48)
[2022-12-25] MEDS: busPIRone HCL 10 MG TABLET PO ×3 (08:44→16:48)
[2022-12-25] MEDS: FLUTICASONE PROPIONATE 0.05% NA SPR 16 GM BTL (*BKC) 1 SPRAY NASAL ×2 (08:44→20:09)
[2022-12-25] MEDS: ASPIRIN 81 MG ENTERIC TABLET PO (08:46)
[2022-12-25] MEDS: TOLNAFTATE 1% POWDER 45 GM BTL 1 APPLIC TOPICAL ×2 (08:47→20:09)
[2022-12-25] MEDS: UMECLIDINIUM/VILANTEROL 62.5-25 MCG ELLIPTA 1 PUFF INHALATION (10:09)
--- NOTE | 2022-12-25 10:10 | PCRCNOTE ---
pt found with NC out of nose, satting 84%. RT placed 2L NC back into nose and pt recovered to 92% after 1 minute.
[2022-12-25] MEDS: ALBUTEROL SULFATE NEB 2.5 MG/3 ML INH INHALATION (11:27)
[2022-12-25 11:45] LABS: Glucose Point of Care 145 mg/dl (65-105)
[2022-12-25] MEDS: FERROUS SULFATE 324 MG TABLET PO ×2 (12:29→16:48)
[2022-12-25 13:18] LABS: Albumin Pleural Fluid 1.5 g/dL; Amylase, Pleural Fluid 12 U/L
--- NOTE | 2022-12-25 13:33 | P.PNNP_ITS ---
Progress Note: A&P Assessment and Plan (1) Chronic kidney disease, stage IV (severe): Code(s): N18.4 - Chronic kidney disease, stage 4 (severe) Status: Chronic Assessment and Plan: * creatinine has been fluctuating ~ 2.0 - 2.5mg/dl since earlier this year * suspected etiology of CKD due to hypertension, diabetes, and vascular disease * however, his CHF and need for diuresis as well as suspected TIERRA likely rachel bert a role * evaluation noted: * renal ultrasound normal * urine electrolytes look prerena (inspite of clear evidence of volume overload) * urine eosinophils negative * serological testing pending * may have to accept a higher creatinine due to necessity of diuretics to maintain his volume status * follow repeat labs and UOP (2) CHF (congestive heart failure): Qualifiers: Heart failure chronicity: acute Heart failure type: diastolic Qualified Code(s): I50.31 - Acute diastolic (congestive) heart failure Code(s): I50.9 - Heart failure, unspecified Status: Acute Assessment and Plan: * acute exacerbation * appears to be right sided heart failure + diastolic dysfunction * Echo results noted -- normal LVSF, EF 50-55%, mild TR, no other significant valve pathology * presented with dyspnea on exertion, abdominal distention and scrotal edema * reasonable diuresis since admission but limited now by renal dysfunction (diuretics on hold) * follow I/Os, daily weights, and respiratory status * s/p right thoracentesis (on 12/21/22) * back on IV diuretics * Cardiology following (3) Respiratory failure with hypoxia: Code(s): J96.91 - Respiratory failure, unspecified with hypoxia Status: Acute Assessment and Plan: * multifactorial: * possible COPD * suspected TIERRA/OHS * fluid/volume overload * CHF * anemia * Pulmonary following with recommendations noted * follow respiratory status (4) Hypertension: Qualifiers: Hypertension type: primary hypertension Qualified Code(s): I10 - Essential (primary) hypertension Code(s): I10 - Essential (primary) hypertension Status: Chronic Assessment and Plan: * reasonable control at this time * follow trend of hemodynamics (5) Anemia: Code(s): D64.9 - Anemia, unspecified Status: Chronic Assessment and Plan: * partly due to CKD but worsened by acute illness * on oral iron - check iron studies * on Epogen * follow trend of H/H (6) Diabetes mellitus with chronic kidney disease: Code(s): E11.22 - Type 2 diabetes mellitus with diabetic chronic kidney disease Status: Chronic Assessment and Plan: * follow accuchecks * glycemic control per hospitalists Will continue to follow. Subjective Date/time seen: 12/25/22 13:33 Interval history: Follow-up for chronic kidney disease and fluctuating creatinine. Restarted on IV diuretic therapy due to his shortness of breath; he reports improvement in his breathing/respiratory status at the time of my visit; swelling/edema stable if not better as well; no other acute issues/events overnight. Exam Narrative: General: middle aged male in NAD Heart: normal S1 and S2; no rub Lungs: coarse with a few bibasilar crackles Abdomen: soft, nontender, nondistended, positive bowel sounds Extremities: no cyanosis or clubbing; s/p right BKA Skin: warm and dry Objective Data Vital Signs Vital Sign
--- NOTE | 2022-12-25 13:33 | PM.PNNEP ---
Progress Note: A&P Assessment and Plan (1) Chronic kidney disease, stage IV (severe): Code(s): N18.4 - Chronic kidney disease, stage 4 (severe) Status: Chronic Assessment and Plan: creatinine has been fluctuating ~ 2.0 - 2.5mg/dl since earlier this year suspected etiology of CKD due to hypertension, diabetes, and vascular disease however, his CHF and need for diuresis as well as suspected TIERRA likely playing a role evaluation noted: renal ultrasound normal urine electrolytes look prerena (inspite of clear evidence of volume overload) urine eosinophils negative serological testing pending may have to accept a higher creatinine due to necessity of diuretics to maintain his volume status follow repeat labs and UOP (2) CHF (congestive heart failure): Qualifiers: Heart failure chronicity: acute Heart failure type: diastolic Qualified Code(s): I50.31 - Acute diastolic (congestive) heart failure Code(s): I50.9 - Heart failure, unspecified Status: Acute Assessment and Plan: acute exacerbation appears to be right sided heart failure + diastolic dysfunction Echo results noted -- normal LVSF, EF 50-55%, mild TR, no other significant valve pathology presented with dyspnea on exertion, abdominal distention and scrotal edema reasonable diuresis since admission but limited now by renal dysfunction (diuretics on hold) follow I/Os, daily weights, and respiratory status s/p right thoracentesis (on 12/21/22) back on IV diuretics Cardiology following (3) Respiratory failure with hypoxia: Code(s): J96.91 - Respiratory failure, unspecified with hypoxia Status: Acute Assessment and Plan: multifactorial: possible COPD suspected TIERRA/OHS fluid/volume overload CHF anemia Pulmonary following with recommendations noted follow respiratory status (4) Hypertension: Qualifiers: Hypertension type: primary hypertension Qualified Code(s): I10 - Essential (primary) hypertension Code(s): I10 - Essential (primary) hypertension Status: Chronic Assessment and Plan: reasonable control at this time follow trend of hemodynamics (5) Anemia: Code(s): D64.9 - Anemia, unspecified Status: Chronic Assessment and Plan: partly due to CKD but worsened by acute illness on oral iron - check iron studies on Epogen follow trend of H/H (6) Diabetes mellitus with chronic kidney disease: Code(s): E11.22 - Type 2 diabetes mellitus with diabetic chronic kidney disease Status: Chronic Assessment and Plan: follow accuchecks glycemic control per hospitalists Will continue to follow. Subjective Date/time seen: 12/25/22 13:33 Interval history: Follow-up for chronic kidney disease and fluctuating creatinine. Restarted on IV diuretic therapy due to his shortness of breath; he reports improvement in his breathing/respiratory status at the time of my visit; swelling/edema stable if not better as well; no other acute issues/events overnight. Exam Narrative: General: middle aged male in NAD Heart: normal S1 and S2; no rub Lungs: coarse with a few bibasilar crackles Abdomen: soft, nontender, nondistended, positive bowel sounds Extremities: no cyanosis or clubbing; s/p right BKA Skin: warm and dry Objective Data Vital Signs Vital Signs: Vital Signs Temp Pulse Resp BP Pulse Ox O2 Del Method O2 Flow Rate 12/25/22 12:00 110 H 12/25/22 08:00 111 H 12/25/22 14:00 97.7 F 116 H 22 H 134/53 L 95 12/25/22 11:42 121 H 20 12/25/22 11:33 114 H 22 H 12/25/22 09:00 92 Nasal Cannula 2 12/25/22 10:09 92 Nasal Cannula 2 12/25/22 08:43 120 H 12/25/22 05:47 97.7 F 62 14 140/85 95 12/25/22 04:00 89 12/25/22 01:45 96 20 96 BiPAP 12/25/22 00:00 91 12/24/22 20:00 124 H
--- NOTE | 2022-12-25 13:55 | PCPTNOTE ---
Attempted to see pt for Physical Therapy treatment, pt refused by shaking his head no when asked to participate.
--- NOTE | 2022-12-25 14:09 | PM.IMPN ---
Progress Note: A&P Assessment and Plan (1) CHF (congestive heart failure): Qualifiers: Heart failure chronicity: acute Heart failure type: diastolic Qualified Code(s): I50.31 - Acute diastolic (congestive) heart failure Code(s): I50.9 - Heart failure, unspecified Status: Acute Assessment and Plan: Continue diuresis. Creatinine worsening but now stable continue gentle diuresis. So Lasix was to p.o. by Cardiology. Monitor BMP Lasix currently on hold due to worsening renal function. Recheck chest x-ray with congestive changes renal function stable ABG with mild hypercapnia well compensated Started on diuresis with Lasix 40 mg IV b.i.d.. Recheck chest x-ray in a.m. (2) Respiratory failure with hypoxia: Code(s): J96.91 - Respiratory failure, unspecified with hypoxia Status: Acute Assessment and Plan: Appreciate pulmonary input. CT chest without contrast shows bilateral pleural effusion. Thoracentesis ordered per Pulmonary. Hold Eliquis and Plavix for thoracentesis Patient will likely need outpatient sleep study as well as pulmonary function tests pt is on oxygen and BIPAP at night currently Discussed with Pulmonary he will need sleep study as an outpatient prior to evaluation for (3) Acute renal failure superimposed on chronic kidney disease: Code(s): N17.9 - Acute kidney failure, unspecified; N18.9 - Chronic kidney disease, unspecified Status: Acute Assessment and Plan: Creatinine worsening. Lasix switched to p.o. which is currently on hold. Monitor BMP restart Lasix (4) HTN (hypertension): Code(s): I10 - Essential (primary) hypertension Status: Acute Assessment and Plan: Blood pressures improving with diuresis (5) Chronic anticoagulation: Code(s): Z79.01 - [facility] (current) use of anticoagulants Status: Chronic Assessment and Plan: Continue (6) Anemia, chronic disease: Code(s): D63.8 - Anemia in other chronic diseases classified elsewhere Status: Acute Assessment and Plan: Stable, follow-up Mild hematuria reported likely traumatic H&H 7.0 repeat at 7.6 no overt signs of bleeding. Continue to monitor (7) Diabetes: Code(s): E11.9 - Type 2 diabetes mellitus without complications Status: Acute Assessment and Plan: Blood sugars reviewed and adequately controlled (8) Paroxysmal atrial fibrillation: Code(s): I48.0 - Paroxysmal atrial fibrillation Status: Chronic Assessment and Plan: Sinus rhythm and anticoagulated 12/17 transferred to medical floor (9) Coronary artery disease: Code(s): I25.10 - Atherosclerotic heart disease of [place] coronary artery without angina pectoris Status: Acute Subjective Date/time seen: 12/25/22 14:09 Interval history: 57-year-old male with insulin-dependent diabetes, coronary artery disease, chronic kidney disease, hypertension, COPD, recently discharged after being treated for left leg cellulitis presented with worsening SOB/leg swelling and scrotal swelling. His scrotal swelling has been to a point where he has pain in scrotal area. He denies medication non compliance. He follows up with [facility]celain Finisher at [facility]. Pt admitted for acute respiratory failure secondary to chf excerbation ct chest showed CT of the chest yesterday with mild pulmonary edema, moderate right and small left pleural effusion. Status post thoracentesis 12/21/2022 12/22/2022: Feeling better today. Swelling has improved. Breathing is improved. Discussed with parachute line tier. 12/23/2022 no overnight events. Still feels short of breath on exertion. Oxygen requirement has lowered. No leg swelling. Discussed with Pulmonary. 12/24/2022: Reports some headache. States he is feeling okay. He is visibly short of breath. Denies any chest pain. Discussed with Nephrology. He has not been using his BiPAP at night 12/25/2022: Feels
[2022-12-25 14:22] LABS: Kappa\\Lambda Light Chains 2.45 (0.26-1.65); Lambda Light Chain 34.3 mg/L (5.7-26.3)
[2022-12-25 16:36] LABS: Albumin 3.1 g/dL (3.8-4.8); Alpha 1 Globulin 0.6 g/dL (0.2-0.3); Alpha 2 Globulin 0.8 g/dL (0.5-0.9); Beta 1 Globulin 0.5 g/dL (0.4-0.6); Protein, Total 6.3 g/dL (6.1-8.1)
[2022-12-25 16:56] LABS: Glucose Point of Care 175 mg/dl (65-105)
[2022-12-25] MEDS: ATORVASTATIN 40 MG TABLET PO (20:03)
[2022-12-25] MEDS: traZODone HCL 50 MG TABLET 100 MG PO (20:04)
[2022-12-25] MEDS: AMITRIPTYLINE HCL 25 MG TABLET 50 MG PO (20:04)
[2022-12-25] MEDS: QUEtiapine FUMARATE 12.5 MG TABLET PO (20:05)
[2022-12-25] MEDS: INSULIN GLARGINE (*BKC) 100 UNITS/ML 10 UNITS SUB-Q (20:07)
[2022-12-25 20:25] LABS: Anti Glomerular Basement Memb <1.0 AI (<1.0)
[2022-12-25 20:43] LABS: Glucose Point of Care 195 mg/dl (65-105)
[2022-12-26] VITALS (12 sets, daily range): BP systolic 114–143; BP diastolic 80–86; PULSE 90–122; RESP 16–35; TEMP 36.1–36.6; O2SAT 85–100
[2022-12-26] MEDS: GABAPENTIN 100 MG CAPSULE PO ×3 (05:58→21:17)
[2022-12-26] MEDS: hydrALAZINE HCL 50 MG TABLET 100 MG PO ×3 (05:58→21:17)
[2022-12-26] MEDS: POLYMYXIN/TRIMETHOPRIM OPHTH 10 ML DROPS 1 DROP EACH EYE ×3 (05:59→13:27)
[2022-12-26 06:29] LABS: Basophils Percent Auto 0.5 % (0.2-1.2); Eosinophils Absolute Auto 0.1 K/mm3 (0-0.3); Eosinophils Percent Auto 1.1 % (0-4.4); Hematocrit 23.4 % (42.0-52.0); Immature Granulocyte Absolute 0.08 K/mm3 (0.00-0.031); Immature Granulocyte Percent A 1.1 % (0-0.5); Lymphocytes Absolute Auto 0.42 K/mm3 (0.9-3.2); Lymphocytes Percent Auto 5.8 % (18.3-44.2); Mean Corpuscular HGB Conc 29.9 g/dl (32-36); Mean Corpuscular Hemoglobin 24.7 pg (26-34); Mean Corpuscular Volume 82.7 fl (80-100); Mean Platelet Volume 10.3 fl (7.4-10.4); Monocytes Absolute Auto 0.6 K/mm3 (0.1-0.6); Monocytes Percent Auto 8.2 % (2.6-8.5); Neutrophils Absolute Auto 6.1 K/mm3 (1.3-6.7); Neutrophils Percent Auto 83.3 % (45.5-73.1); Platelet Count Result 220 k/mm3 (150-375); Red Blood Count 2.83 M/mm3 (4.6-6.20); Red Cell Distribution Width 17.3 % (11.5-14.5); White Blood Count 7.3 K/mm3 (4.5-10.0)
[2022-12-26 06:32] LABS: Iron 13 ug/dL (49-181)
[2022-12-26 06:35] LABS: Alanine Aminotransferase 15 U/L (6-50); Albumin Level 3.2 g/dL (3.5-5.1); Alkaline Phosphatase 193 U/L (38-126); Anion Gap 6 mmol/L (8-16); Aspartate Amino Transferase 21 U/L (17-59); Bilirubin,Total 0.8 mg/dL (0.2-1.3); Blood Urea Nitrogen 71 mg/dL (9-20); Calcium 8.1 mg/dL (8.4-10.2); Carbon Dioxide 33 mmol/L (22-30); Chloride 100 mmol/L (98-107); Estimated CRCL calculation 34 ml/min; Estimated Glomerular Filt Rate 24; Glucose 153 mg/dL (65-110); Magnesium 2.5 mg/dL (1.6-2.3); Potassium 3.6 mmol/L (3.4-5.0); Sodium 139 mmol/L (137-145)
[2022-12-26 06:41] LABS: Percent Iron Saturation 6 % (20-50)
[2022-12-26 07:04] LABS: Anisocytosis 1+ (NORMAL); Hypochromasia 2+ (NORMAL); Ovalocytes 1+ (NORMAL); Platelet Estimate Adequate (Adequate); Schistocytes None Seen (NORMAL)
[2022-12-26 08:16] LABS: Glucose Point of Care 168 mg/dl (65-105)
[2022-12-26] MEDS: UMECLIDINIUM/VILANTEROL 62.5-25 MCG ELLIPTA 1 PUFF INHALATION (09:04)
[2022-12-26] MEDS: ASCORBIC ACID 500 MG TABLET PO (09:56)
[2022-12-26] MEDS: PYRIDOXINE HCL 50 MG TABLET PO (09:56)
[2022-12-26] MEDS: ISOSORBIDE MONONITRATE 30 MG TAB.ER.24H PO (09:56)
[2022-12-26] MEDS: polyethylene glycoL 3350 17 GM POWD.PACK PO (09:56)
[2022-12-26] MEDS: FUROSEMIDE INJ 40 MG/4 ML VIAL IV PUSH ×2 (09:56→17:31)
[2022-12-26] MEDS: FAMOTIDINE 20 MG TABLET PO ×2 (09:57→21:17)
[2022-12-26] MEDS: ASPIRIN 81 MG ENTERIC TABLET PO (09:57)
[2022-12-26] MEDS: APIXABAN 5 MG TABLET PO ×2 (09:57→21:17)
[2022-12-26] MEDS: busPIRone HCL 10 MG TABLET PO ×3 (09:57→17:32)
[2022-12-26] MEDS: FLUTICASONE PROPIONATE 0.05% NA SPR 16 GM BTL (*BKC) 1 SPRAY NASAL (09:58)
[2022-12-26] MEDS: busPIRone HCL 5 MG TABLET PO ×3 (09:58→17:32)
[2022-12-26] MEDS: METOPROLOL TARTRATE 50 MG TAB PO ×2 (09:58→21:17)
[2022-12-26] MEDS: TOLNAFTATE 1% POWDER 45 GM BTL 1 APPLIC TOPICAL ×2 (09:58→21:18)
--- NOTE | 2022-12-26 11:31 | P.PNNP_ITS ---
Progress Note: A&P Assessment and Plan (1) Chronic kidney disease, stage IV (severe): Code(s): N18.4 - Chronic kidney disease, stage 4 (severe) Status: Chronic Assessment and Plan: * creatinine has been fluctuating ~ 2.0 - 2.5mg/dl since earlier this year * suspected etiology of CKD due to hypertension, diabetes, and vascular disease * however, his CHF and need for diuresis as well as suspected TIERRA likely rachel bert a role * evaluation noted: * renal ultrasound normal * urine electrolytes look prerena (inspite of clear evidence of volume overload) * urine eosinophils negative * serological testing pending * may have to accept a higher creatinine due to necessity of diuretics to maintain his volume status * follow repeat labs and UOP (2) CHF (congestive heart failure): Qualifiers: Heart failure chronicity: acute Heart failure type: diastolic Qualified Code(s): I50.31 - Acute diastolic (congestive) heart failure Code(s): I50.9 - Heart failure, unspecified Status: Acute Assessment and Plan: * acute exacerbation * appears to be right sided heart failure + diastolic dysfunction * Echo results noted -- normal LVSF, EF 50-55%, mild TR, no other significant valve pathology * presented with dyspnea on exertion, abdominal distention and scrotal edema * reasonable diuresis since admission but limited now by renal dysfunction (diuretics on hold) * follow I/Os, daily weights, and respiratory status * s/p right thoracentesis (on 12/21/22) * back on IV diuretics * Cardiology following (3) Respiratory failure with hypoxia: Code(s): J96.91 - Respiratory failure, unspecified with hypoxia Status: Acute Assessment and Plan: * multifactorial: * possible COPD * suspected TIERRA/OHS * fluid/volume overload * CHF * anemia * Pulmonary following with recommendations noted * follow respiratory status (4) Hypertension: Qualifiers: Hypertension type: primary hypertension Qualified Code(s): I10 - Essential (primary) hypertension Code(s): I10 - Essential (primary) hypertension Status: Chronic Assessment and Plan: * reasonable control at this time * follow trend of hemodynamics (5) Anemia: Code(s): D64.9 - Anemia, unspecified Status: Chronic Assessment and Plan: * partly due to CKD but worsened by acute illness * on oral iron - check iron studies * on Epogen * follow trend of H/H (6) Diabetes mellitus with chronic kidney disease: Code(s): E11.22 - Type 2 diabetes mellitus with diabetic chronic kidney disease Status: Chronic Assessment and Plan: * follow accuchecks * glycemic control per hospitalists Will continue to follow. Subjective Date/time seen: 12/26/22 11:31 Interval history: Follow-up for chronic kidney disease and fluctuating creatinine. No real significant change -- breathing/respiratory status seems about the same; resumed back on IV diuretic therapy; swelling/edema is still present but better; no other acute issues/events overnight. Exam Narrative: General: middle aged male in NAD Heart: normal S1 and S2; no rub Lungs: coarse and decreased at bases Abdomen: soft, nontender, nondistended, positive bowel sounds Extremities: no cyanosis or clubbing; s/p right BKA Skin: warm and dry Objective Data Vital Signs Vital Signs:
--- NOTE | 2022-12-26 11:31 | PM.PNNEP ---
Progress Note: A&P Assessment and Plan (1) Chronic kidney disease, stage IV (severe): Code(s): N18.4 - Chronic kidney disease, stage 4 (severe) Status: Chronic Assessment and Plan: creatinine has been fluctuating ~ 2.0 - 2.5mg/dl since earlier this year suspected etiology of CKD due to hypertension, diabetes, and vascular disease however, his CHF and need for diuresis as well as suspected TIERRA likely playing a role evaluation noted: renal ultrasound normal urine electrolytes look prerena (inspite of clear evidence of volume overload) urine eosinophils negative serological testing pending may have to accept a higher creatinine due to necessity of diuretics to maintain his volume status follow repeat labs and UOP (2) CHF (congestive heart failure): Qualifiers: Heart failure chronicity: acute Heart failure type: diastolic Qualified Code(s): I50.31 - Acute diastolic (congestive) heart failure Code(s): I50.9 - Heart failure, unspecified Status: Acute Assessment and Plan: acute exacerbation appears to be right sided heart failure + diastolic dysfunction Echo results noted -- normal LVSF, EF 50-55%, mild TR, no other significant valve pathology presented with dyspnea on exertion, abdominal distention and scrotal edema reasonable diuresis since admission but limited now by renal dysfunction (diuretics on hold) follow I/Os, daily weights, and respiratory status s/p right thoracentesis (on 12/21/22) back on IV diuretics Cardiology following (3) Respiratory failure with hypoxia: Code(s): J96.91 - Respiratory failure, unspecified with hypoxia Status: Acute Assessment and Plan: multifactorial: possible COPD suspected TIERRA/OHS fluid/volume overload CHF anemia Pulmonary following with recommendations noted follow respiratory status (4) Hypertension: Qualifiers: Hypertension type: primary hypertension Qualified Code(s): I10 - Essential (primary) hypertension Code(s): I10 - Essential (primary) hypertension Status: Chronic Assessment and Plan: reasonable control at this time follow trend of hemodynamics (5) Anemia: Code(s): D64.9 - Anemia, unspecified Status: Chronic Assessment and Plan: partly due to CKD but worsened by acute illness on oral iron - check iron studies on Epogen follow trend of H/H (6) Diabetes mellitus with chronic kidney disease: Code(s): E11.22 - Type 2 diabetes mellitus with diabetic chronic kidney disease Status: Chronic Assessment and Plan: follow accuchecks glycemic control per hospitalists Will continue to follow. Subjective Date/time seen: 12/26/22 11:31 Interval history: Follow-up for chronic kidney disease and fluctuating creatinine. No real significant change -- breathing/respiratory status seems about the same; resumed back on IV diuretic therapy; swelling/edema is still present but better; no other acute issues/events overnight. Exam Narrative: General: middle aged male in NAD Heart: normal S1 and S2; no rub Lungs: coarse and decreased at bases Abdomen: soft, nontender, nondistended, positive bowel sounds Extremities: no cyanosis or clubbing; s/p right BKA Skin: warm and dry Objective Data Vital Signs Vital Signs: Vital Signs Temp Pulse Resp BP Pulse Ox O2 Del Method O2 Flow Rate 12/26/22 09:09 93 Nasal Cannula 2 12/26/22 08:55 85 L Room Air 12/26/22 04:00 90 12/26/22 05:30 96.9 F L 120 H 18 114/85 100 12/26/22 02:44 24 H 96 BiPAP 12/26/22 00:00 101 H 12/25/22 20:00 112 H 12/25/22 21:33 96 Nasal Cannula 2 12/25/22 21:31 93 27 H 95 BiPAP 12/25/22 21:25 99.0 F 122 H 20 151/85 H 96 12/25/22 20:04 104 H 12/25/22 16:00 104 H 12/25/22 14:00 97.7 F 116 H 22 H 134/53 L 95
[2022-12-26 12:05] LABS: Glucose Point of Care 203 mg/dl (65-105)
[2022-12-26] MEDS: FERROUS SULFATE 324 MG TABLET PO ×2 (13:25→17:31)
[2022-12-26] MEDS: traMADol HCL (*CRX) 50 MG TABLET PO ×2 (15:04→21:29)
--- NOTE | 2022-12-26 15:24 | PM.IMPN ---
Progress Note: A&P Assessment and Plan (1) CHF (congestive heart failure): Qualifiers: Heart failure chronicity: acute Heart failure type: diastolic Qualified Code(s): I50.31 - Acute diastolic (congestive) heart failure Code(s): I50.9 - Heart failure, unspecified Status: Acute Assessment and Plan: Continue diuresis. Creatinine worsening but now stable continue gentle diuresis. So Lasix was to p.o. by Cardiology. Monitor BMP Lasix currently on hold due to worsening renal function. Recheck chest x-ray with congestive changes renal function stable ABG with mild hypercapnia well compensated Started on diuresis with Lasix 40 mg IV b.i.d.. Recheck chest x-ray with continued pulmonary edema (2) Respiratory failure with hypoxia: Code(s): J96.91 - Respiratory failure, unspecified with hypoxia Status: Acute Assessment and Plan: Appreciate pulmonary input. CT chest without contrast shows bilateral pleural effusion. Thoracentesis ordered per Pulmonary. Hold Eliquis and Plavix for thoracentesis Patient will likely need outpatient sleep study as well as pulmonary function tests pt is on oxygen and BIPAP at night currently Discussed with Pulmonary he will need sleep study as an outpatient prior to evaluation for (3) Acute renal failure superimposed on chronic kidney disease: Code(s): N17.9 - Acute kidney failure, unspecified; N18.9 - Chronic kidney disease, unspecified Status: Acute Assessment and Plan: Creatinine worsening. Lasix switched to p.o. which is currently on hold. Monitor BMP restart Lasix (4) HTN (hypertension): Code(s): I10 - Essential (primary) hypertension Status: Acute Assessment and Plan: Blood pressures improving with diuresis (5) Chronic anticoagulation: Code(s): Z79.01 - [facility] (current) use of anticoagulants Status: Chronic Assessment and Plan: Continue (6) Anemia, chronic disease: Code(s): D63.8 - Anemia in other chronic diseases classified elsewhere Status: Acute Assessment and Plan: Stable, follow-up Mild hematuria reported likely traumatic H&H 7.0 repeat at 7.6 no overt signs of bleeding. Continue to monitor (7) Diabetes: Code(s): E11.9 - Type 2 diabetes mellitus without complications Status: Acute Assessment and Plan: Blood sugars reviewed and adequately controlled (8) Paroxysmal atrial fibrillation: Code(s): I48.0 - Paroxysmal atrial fibrillation Status: Chronic Assessment and Plan: Sinus rhythm and anticoagulated 12/17 transferred to medical floor (9) Coronary artery disease: Code(s): I25.10 - Atherosclerotic heart disease of [place] coronary artery without angina pectoris Status: Acute Subjective Date/time seen: 12/26/22 15:24 Interval history: 57-year-old male with insulin-dependent diabetes, coronary artery disease, chronic kidney disease, hypertension, COPD, recently discharged after being treated for left leg cellulitis presented with worsening SOB/leg swelling and scrotal swelling. His scrotal swelling has been to a point where he has pain in scrotal area. He denies medication non compliance. He follows up with Prison Guard Supervisor at [facility]. Pt admitted for acute respiratory failure secondary to chf excerbation ct chest showed CT of the chest yesterday with mild pulmonary edema, moderate right and small left pleural effusion. Status post thoracentesis 12/21/2022 12/22/2022: Feeling better today. Swelling has improved. Breathing is improved. Discussed with textile conversion manager. 12/23/2022 no overnight events. Still feels short of breath on exertion. Oxygen requirement has lowered. No leg swelling. Discussed with Pulmonary. 12/24/2022: Reports some headache. States he is feeling okay. He is visibly short of breath. Denies any chest pain. Discussed with Nephrology. He has not been using his BiPAP at night
[2022-12-26 17:12] LABS: Glucose Point of Care 215 mg/dl (65-105)
[2022-12-26] MEDS: INSULIN ASPART (*BKC) 100 UNITS/ML SUB-Q (17:31)
[2022-12-26 20:29] LABS: Glucose Point of Care 256 mg/dl (65-105)
[2022-12-26] MEDS: QUEtiapine FUMARATE 12.5 MG TABLET PO (21:17)
[2022-12-26] MEDS: ATORVASTATIN 40 MG TABLET PO (21:17)
[2022-12-26] MEDS: AMITRIPTYLINE HCL 25 MG TABLET 50 MG PO (21:17)
[2022-12-26] MEDS: traZODone HCL 50 MG TABLET 100 MG PO (21:17)
[2022-12-26] MEDS: INSULIN GLARGINE (*BKC) 100 UNITS/ML 10 UNITS SUB-Q (21:18)
[2022-12-27] VITALS (22 sets, daily range): BP systolic 106–142; BP diastolic 68–95; PULSE 80–125; RESP 14–38; TEMP 36.3–36.8; O2SAT 91–98
--- NOTE | 2022-12-27 | ECG_ITS ---
Measurements Intervals [place] Rate: 124 P: IN: 0 QRS: 30 QRSD: 103 T: 117 QT: 331 QTc: 476 Interpretive Statements ATRIAL FLUTTER/TACHYCARDIA WITH RAPID VENTRICULAR RESPONSE BORDERLINE ST-T WAVE ABNORMALITY- DIFFUSE LEADS BASELINE WANDER- V4-V5 ABNORMAL ECG COMPARED TO ECG 12/21/2022 13:37:44 HEART RATE HAS INCREASED Electronically Signed On 12-28-2022 7:52:51 CDT by Asif Prabhakar D.O.
[2022-12-27] MEDS: GABAPENTIN 100 MG CAPSULE PO ×3 (05:01→21:00)
[2022-12-27] MEDS: LEVOTHYROXINE SODIUM 100 MCG TABLET PO (05:01)
[2022-12-27] MEDS: hydrALAZINE HCL 50 MG TABLET 100 MG PO ×3 (05:01→21:00)
[2022-12-27 07:01] LABS: Basophils Percent Auto 0.4 % (0.2-1.2); Eosinophils Absolute Auto 0.1 K/mm3 (0-0.3); Eosinophils Percent Auto 1.4 % (0-4.4); Hematocrit 23.1 % (42.0-52.0); Immature Granulocyte Absolute 0.08 K/mm3 (0.00-0.031); Lymphocytes Absolute Auto 0.38 K/mm3 (0.9-3.2); Mean Corpuscular HGB Conc 28.6 g/dl (32-36); Mean Corpuscular Hemoglobin 24.2 pg (26-34); Mean Corpuscular Volume 84.6 fl (80-100); Mean Platelet Volume 11.2 fl (7.4-10.4); Monocytes Absolute Auto 0.6 K/mm3 (0.1-0.6); Monocytes Percent Auto 8.2 % (2.6-8.5); Neutrophils Absolute Auto 6.4 K/mm3 (1.3-6.7); Nucleated Red Blood Cells Perc 0.3 % (0.0-0.2); Platelet Count Result 230 k/mm3 (150-375); Red Blood Count 2.73 M/mm3 (4.6-6.20); White Blood Count 7.7 K/mm3 (4.5-10.0)
[2022-12-27 07:13] LABS: Alanine Aminotransferase 13 U/L (6-50); Albumin Level 3.3 g/dL (3.5-5.1); Alkaline Phosphatase 175 U/L (38-126); Anion Gap 6 mmol/L (8-16); Aspartate Amino Transferase 21 U/L (17-59); Bilirubin,Total 0.7 mg/dL (0.2-1.3); Blood Urea Nitrogen 76 mg/dL (9-20); Calcium 8.1 mg/dL (8.4-10.2); Carbon Dioxide 31 mmol/L (22-30); Chloride 99 mmol/L (98-107); Estimated CRCL calculation 36 ml/min; Estimated Glomerular Filt Rate 26; Glucose 170 mg/dL (65-110); Magnesium 2.5 mg/dL (1.6-2.3); Potassium 3.6 mmol/L (3.4-5.0); Sodium 136 mmol/L (137-145)
[2022-12-27 07:29] LABS: Hemoglobin 6.6 g/dL (14.0-18.0); Platelet Estimate Adequate (Adequate)
[2022-12-27 07:30] LABS: Acanthocytes 1+ (NORMAL); Anisocytosis 1+ (NORMAL); Burr Cells 1+ (NORMAL); Microcytosis 1+ (NORMAL); Ovalocytes 2+ (NORMAL)
[2022-12-27 07:31] LABS: Schistocytes None Seen (NORMAL)
[2022-12-27 07:43] LABS: Glucose Point of Care 171 mg/dl (65-105)
[2022-12-27] MEDS: UMECLIDINIUM/VILANTEROL 62.5-25 MCG ELLIPTA 1 PUFF INHALATION (09:20)
[2022-12-27] MEDS: PYRIDOXINE HCL 50 MG TABLET PO (10:00)
[2022-12-27] MEDS: busPIRone HCL 5 MG TABLET PO ×3 (10:00→16:53)
[2022-12-27] MEDS: METOPROLOL TARTRATE 50 MG TAB PO (10:00)
[2022-12-27] MEDS: APIXABAN 5 MG TABLET PO (10:00)
[2022-12-27] MEDS: FAMOTIDINE 20 MG TABLET PO ×2 (10:00→20:29)
[2022-12-27] MEDS: busPIRone HCL 10 MG TABLET PO ×3 (10:00→16:54)
[2022-12-27] MEDS: ASCORBIC ACID 500 MG TABLET PO (10:00)
[2022-12-27] MEDS: ISOSORBIDE MONONITRATE 30 MG TAB.ER.24H PO (10:00)
[2022-12-27] MEDS: FUROSEMIDE INJ 40 MG/4 ML VIAL IV PUSH (10:01)
[2022-12-27] MEDS: polyethylene glycoL 3350 17 GM POWD.PACK PO (10:01)
[2022-12-27] MEDS: ASPIRIN 81 MG ENTERIC TABLET PO (10:01)
[2022-12-27] MEDS: EPOETIN ALFA-EPBX 10,000 UNITS/ML VIAL 10000 UNITS SUB-Q (10:01)
[2022-12-27] MEDS: POLYMYXIN/TRIMETHOPRIM OPHTH 10 ML DROPS 1 DROP EACH EYE ×4 (10:02→20:30)
[2022-12-27] MEDS: TOLNAFTATE 1% POWDER 45 GM BTL 1 APPLIC TOPICAL ×2 (10:02→20:31)
[2022-12-27] MEDS: FLUTICASONE PROPIONATE 0.05% NA SPR 16 GM BTL (*BKC) 1 SPRAY NASAL ×2 (10:02→20:30)
--- NOTE | 2022-12-27 10:38 | PM.IMPN ---
Progress Note: A&P Assessment and Plan (1) CHF (congestive heart failure): Qualifiers: Heart failure chronicity: acute Heart failure type: diastolic Qualified Code(s): I50.31 - Acute diastolic (congestive) heart failure Code(s): I50.9 - Heart failure, unspecified Status: Acute Assessment and Plan: Continue diuresis. Creatinine worsening but now stable continue gentle diuresis. So Lasix was to p.o. by Cardiology. Monitor BMP Lasix currently on hold due to worsening renal function. Recheck chest x-ray with congestive changes renal function stable ABG with mild hypercapnia well compensated Started on diuresis with Lasix 40 mg IV b.i.d.. Recheck chest x-ray with continued pulmonary edema but with improveent. (2) Respiratory failure with hypoxia: Code(s): J96.91 - Respiratory failure, unspecified with hypoxia Status: Acute Assessment and Plan: Appreciate pulmonary input. CT chest without contrast shows bilateral pleural effusion. Thoracentesis ordered per Pulmonary. Hold Eliquis and Plavix for thoracentesis Patient will likely need outpatient sleep study as well as pulmonary function tests pt is on oxygen and BIPAP at night currently Discussed with Pulmonary he will need sleep study as an outpatient prior to evaluation for (3) Acute renal failure superimposed on chronic kidney disease: Code(s): N17.9 - Acute kidney failure, unspecified; N18.9 - Chronic kidney disease, unspecified Status: Acute Assessment and Plan: Creatinine stable. Lasix switched to p.o. which is currently on hold. Monitor BMP restart Lasix with iv for contiued diuresis (4) HTN (hypertension): Code(s): I10 - Essential (primary) hypertension Status: Acute Assessment and Plan: Blood pressures improving with diuresis (5) Chronic anticoagulation: Code(s): Z79.01 - ferry terminal supervisor (current) use of anticoagulants Status: Chronic Assessment and Plan: Continue (6) Anemia, chronic disease: Code(s): D63.8 - Anemia in other chronic diseases classified elsewhere Status: Acute Assessment and Plan: Stable, follow-up Mild hematuria reported likely traumatic H&H 7.0 repeat at 7.6 no overt signs of bleeding. Continue to monitor h ad h janak to 6.6. will tansfuse one unit prbc with lasix after that exra dose. increase lasix to 60 mg iv bid (7) Diabetes: Code(s): E11.9 - Type 2 diabetes mellitus without complications Status: Acute Assessment and Plan: Blood sugars reviewed and adequately controlled (8) Paroxysmal atrial fibrillation: Code(s): I48.0 - Paroxysmal atrial fibrillation Status: Chronic Assessment and Plan: Sinus rhythm and anticoagulated 12/17 transferred to medical floor (9) Coronary artery disease: Code(s): I25.10 - Atherosclerotic heart disease of [place] coronary artery without angina pectoris Status: Acute Subjective Date/time seen: 12/27/22 10:38 Interval history: 57-year-old male with insulin-dependent diabetes, coronary artery disease, chronic kidney disease, hypertension, COPD, recently discharged after being treated for left leg cellulitis presented with worsening SOB/leg swelling and scrotal swelling. His scrotal swelling has been to a point where he has pain in scrotal area. He denies medication non compliance. He follows up with [facility] Strategy [facility] at [facility]. Pt admitted for acute respiratory failure secondary to chf excerbation ct chest showed CT of the chest yesterday with mild pulmonary edema, moderate right and small left pleural effusion. Status post thoracentesis 12/21/2022 12/22/2022: Feeling better today. Swelling has improved. Breathing is improved. Discussed with gm. 12/23/2022 no overnight events. Still feels short of breath on exertion. Oxygen requirement has lowered. No leg swelling. Discussed with Pulmonary. 12/24/2022: Reports some he
[2022-12-27 11:19] LABS: Glucose Point of Care 217 mg/dl (65-105)
[2022-12-27] MEDS: FERROUS SULFATE 324 MG TABLET PO ×2 (12:15→16:54)
[2022-12-27] MEDS: INSULIN ASPART (*BKC) 100 UNITS/ML SUB-Q ×2 (12:15→16:59)
--- NOTE | 2022-12-27 12:17 | PM.PNNEP ---
Progress Note: A&P Assessment and Plan (1) Chronic kidney disease, stage IV (severe): Code(s): N18.4 - Chronic kidney disease, stage 4 (severe) Status: Chronic Assessment and Plan: creatinine has been fluctuating ~ 2.0 - 2.5mg/dl since earlier this year suspected etiology of CKD due to hypertension, diabetes, and vascular disease however, his CHF and need for diuresis as well as suspected TIERRA likely playing a role evaluation noted: renal ultrasound normal urine electrolytes look prerena (inspite of clear evidence of volume overload) urine eosinophils negative serological testing pending may have to accept a higher creatinine due to necessity of diuretics to maintain his volume status follow repeat labs and UOP (2) CHF (congestive heart failure): Qualifiers: Heart failure chronicity: acute Heart failure type: diastolic Qualified Code(s): I50.31 - Acute diastolic (congestive) heart failure Code(s): I50.9 - Heart failure, unspecified Status: Acute Assessment and Plan: acute exacerbation appears to be right sided heart failure + diastolic dysfunction Echo results noted -- normal LVSF, EF 50-55%, mild TR, no other significant valve pathology presented with dyspnea on exertion, abdominal distention and scrotal edema reasonable diuresis since admission diuretic held for a time due to rising creatinine follow I/Os, daily weights, and respiratory status s/p right thoracentesis (on 12/21/22) back on IV diuretics concerning that diuretic therapy alone may not optimize volume status -- may need more invasive (i.e. dialysis/ultrafiltration) interventions Cardiology following (3) Respiratory failure with hypoxia: Code(s): J96.91 - Respiratory failure, unspecified with hypoxia Status: Acute Assessment and Plan: multifactorial: possible COPD suspected TIERRA/OHS fluid/volume overload CHF anemia Pulmonary following with recommendations noted follow respiratory status (4) Hypertension: Qualifiers: Hypertension type: primary hypertension Qualified Code(s): I10 - Essential (primary) hypertension Code(s): I10 - Essential (primary) hypertension Status: Chronic Assessment and Plan: reasonable control at this time follow trend of hemodynamics (5) Anemia: Code(s): D64.9 - Anemia, unspecified Status: Chronic Assessment and Plan: partly due to CKD but worsened by acute illness on Epogen PRBC transfusion per protocol follow trend of H/H (6) Diabetes mellitus with chronic kidney disease: Code(s): E11.22 - Type 2 diabetes mellitus with diabetic chronic kidney disease Status: Chronic Assessment and Plan: follow accuchecks glycemic control per hospitalists Will continue to follow. Subjective Date/time seen: 12/27/22 12:17 Interval history: Follow-up for chronic kidney disease and fluctuating creatinine. In spite of ongoing IV diuretic therapy, he still remains short of breath and states his breathing is rough ; renal function creeping up with IV diuretic therapy; H/H low by AM labs and PRBC transfusion today. Exam Narrative: General: middle aged male in NAD Heart: normal S1 and S2; no rub Lungs: coarse and decreased at bases Abdomen: soft, nontender, nondistended, positive bowel sounds Extremities: no cyanosis or clubbing; 1+ edema s/p right BKA Skin: no rash Objective Data Vital Signs Vital Signs: Vital Signs Temp Pulse Resp BP Pulse Ox O2 Del Method O2 Flow Rate 12/27/22 12:38 97.7 F 119 H 20 128/74 92 12/27/22 10:00 95 Nasal Cannula 2 12/27/22 10:00 86 12/27/22 09:21 95 Nasal Cannula 2 12/27/22 04:22 97.3 F L 86 14 106/68 93 12/27/22 04:00 80 12/27/22 00:00 122 H 12/26/22 20:00 90 12/26/22 23:15 94 35 H 95 BiPAP 12/27/22 02:22 90
--- NOTE | 2022-12-27 12:17 | P.PNNP_ITS ---
Progress Note: A&P Assessment and Plan (1) Chronic kidney disease, stage IV (severe): Code(s): N18.4 - Chronic kidney disease, stage 4 (severe) Status: Chronic Assessment and Plan: * creatinine has been fluctuating ~ 2.0 - 2.5mg/dl since earlier this year * suspected etiology of CKD due to hypertension, diabetes, and vascular disease * however, his CHF and need for diuresis as well as suspected TIERRA likely rachel bert a role * evaluation noted: * renal ultrasound normal * urine electrolytes look prerena (inspite of clear evidence of volume overload) * urine eosinophils negative * serological testing pending * may have to accept a higher creatinine due to necessity of diuretics to maintain his volume status * follow repeat labs and UOP (2) CHF (congestive heart failure): Qualifiers: Heart failure chronicity: acute Heart failure type: diastolic Qualified Code(s): I50.31 - Acute diastolic (congestive) heart failure Code(s): I50.9 - Heart failure, unspecified Status: Acute Assessment and Plan: * acute exacerbation * appears to be right sided heart failure + diastolic dysfunction * Echo results noted -- normal LVSF, EF 50-55%, mild TR, no other significant valve pathology * presented with dyspnea on exertion, abdominal distention and scrotal edema * reasonable diuresis since admission * diuretic held for a time due to rising creatinine * follow I/Os, daily weights, and respiratory status * s/p right thoracentesis (on 12/21/22) * back on IV diuretics * concerning that diuretic therapy alone may not optimize volume status -- may need more invasive (i.e. dialysis/ultrafiltration) interventions * Cardiology following (3) Respiratory failure with hypoxia: Code(s): J96.91 - Respiratory failure, unspecified with hypoxia Status: Acute Assessment and Plan: * multifactorial: * possible COPD * suspected TIERRA/OHS * fluid/volume overload * CHF * anemia * Pulmonary following with recommendations noted * follow respiratory status (4) Hypertension: Qualifiers: Hypertension type: primary hypertension Qualified Code(s): I10 - Essential (primary) hypertension Code(s): I10 - Essential (primary) hypertension Status: Chronic Assessment and Plan: * reasonable control at this time * follow trend of hemodynamics (5) Anemia: Code(s): D64.9 - Anemia, unspecified Status: Chronic Assessment and Plan: * partly due to CKD but worsened by acute illness * on Epogen * PRBC transfusion per protocol * follow trend of H/H (6) Diabetes mellitus with chronic kidney disease: Code(s): E11.22 - Type 2 diabetes mellitus with diabetic chronic kidney disease Status: Chronic Assessment and Plan: * follow accuchecks * glycemic control per hospitalists Will continue to follow. Subjective Date/time seen: 12/27/22 12:17 Interval history: Follow-up for chronic kidney disease and fluctuating creatinine. In spite of ongoing IV diuretic therapy, he still remains short of breath and states his breathing is rough ; renal function creeping up with IV diuretic therapy; H/H low by AM labs and PRBC transfusion today. Exam Narrative: General: middle aged male in NAD Heart: normal S1 and S2; no rub Lungs: coarse and decreased at bases Abdomen: soft, nontender, nondistended, positive bowel sounds Extremities: no cyanosis or clubbing; 1+
--- NOTE | 2022-12-27 12:57 | PM.PNCARD ---
Progress Note: A&P Assessment and Plan (1) CHF (congestive heart failure): Qualifiers: Heart failure chronicity: acute Heart failure type: diastolic Qualified Code(s): I50.31 - Acute diastolic (congestive) heart failure Code(s): I50.9 - Heart failure, unspecified Status: Acute Assessment and Plan: Acute heart failure with preserved ejection fraction and right-sided heart failure. Presented with dyspnea on exertion, abdominal distention and scrotal edema. He has RV dysfunction and diastolic heart failure. Echo with normal LVSF, EF 50-55%, mild TR, no other significant valve pathology. Diuresed very well with IV Lasix but diuretics have jessie placed on hold because of worsening JOSE M Accurate intake and output, daily weights Low Na diet Rec'd blood transfusion today, orders placed for patient to receive lasix post transfusion but this has not yet been given. Give now. May require an additional dose depending on response. PT OT (2) Acute renal failure superimposed on chronic kidney disease: Code(s): N17.9 - Acute kidney failure, unspecified; N18.9 - Chronic kidney disease, unspecified Status: Acute Assessment and Plan: Worsening renal function, from diuresis. BMP pending. Monitor renal function daily for now until trend established. Avoid nephrotoxic agents at this time. Diuresis remains on hold. A monitor volume status. (3) Hypertension associated with diabetes: Code(s): E11.59 - Type 2 diabetes mellitus with other circulatory complications; I15.2 - Hypertension secondary to endocrine disorders Status: Acute Assessment and Plan: BP reasonably controlled. Continue hydralazine 100 mg q.8 hours, metoprolol tartrate 50 mg twice daily (4) Paroxysmal atrial fibrillation: Code(s): I48.0 - Paroxysmal atrial fibrillation Status: Chronic Assessment and Plan: Patient currently in atrial flutter with variable AV block. (5) Chronic anticoagulation: Code(s): Z79.01 - moth exterminator (current) use of anticoagulants Status: Chronic Assessment and Plan: Continue Eliquis 5 mg twice daily. (6) Coronary artery disease: Code(s): I25.10 - Atherosclerotic heart disease of [place] coronary artery without angina pectoris Status: Acute Assessment and Plan: Elevated troponins are not related to acute plaque rupture infarction in setting of acute on chronic kidney failure and CHF, consistent with a type 2 infarction. Continue aspirin, atorvastatin 40 bedtime, metoprolol. Subjective Date/time seen: 12/27/22 12:57 Cardiology follow up for CHF Interval history: Reason for visit: Decompensated heart failure, atrial flutter HPI: Patient is a 57-year-old male who has a history of coronary disease.? Details are not known.? He follows with [facility].? He has had progressive lower extremity and scrotal edema as well as worsening shortness of breath over the past several months.? Symptoms worsened to the point that his testicles and foreskin were swollen and painful and decided to come to the hospital for further evaluation.? He was started on IV diuretics and was found to be in volume overload and is already feeling a little bit better with less swelling and less shortness of breath.? He does describe some orthopnea.? No chest pain.? No syncope, presyncope, paroxysmal nocturnal dyspnea.? Does have occasional palpitations.? He was recently admitted to this hospital for treatment of cellulitis. 12/16: Continues to complain of shortness of breath today.? Does not think his breathing has improved any since yesterday.? Has shortness of breath with minimal exertion.? No chest pain, palpitations. 12/17: Feeling better. No new complaints this morning. e 12/18: Diuresing well. No shortness of breath. Lower extremity edema significantly improved. Per discussion with RN, cannot wean off oxygen. Patient was not on home oxygen. Desats quickly without s
[2022-12-27] MEDS: SODIUM CHLORIDE 0.9% IV 250 ML 30 ML IV CONT (13:48)
[2022-12-27 14:01] LABS: ANCA Screen Negative (Negative)
[2022-12-27 14:31] LABS: Chloride Rand Ur <20 mmol/L (32-290); Creatinine Random Urine 99 mg/dL (20-320)
[2022-12-27] MEDS: traMADol HCL (*CRX) 50 MG TABLET PO (15:19)
[2022-12-27 16:18] LABS: Glucose Point of Care 229 mg/dl (65-105)
[2022-12-27] MEDS: FUROSEMIDE INJ 40 MG/4 ML VIAL 60 MG IV PUSH (16:51)
[2022-12-27] MEDS: ALBUTEROL SULFATE NEB 2.5 MG/3 ML INH INHALATION ×2 (17:16→22:15)
[2022-12-27 19:02] LABS: Hematocrit 25.7 % (42.0-52.0); Hemoglobin 7.8 g/dL (14.0-18.0)
[2022-12-27] MEDS: traZODone HCL 50 MG TABLET 100 MG PO (20:29)
[2022-12-27] MEDS: AMITRIPTYLINE HCL 25 MG TABLET 50 MG PO (20:29)
[2022-12-27] MEDS: QUEtiapine FUMARATE 12.5 MG TABLET PO (20:29)
[2022-12-27] MEDS: PANTOPRAZOLE SODIUM IV 40 MG VIAL IV PUSH (20:30)
[2022-12-27] MEDS: ATORVASTATIN 40 MG TABLET PO (20:30)
[2022-12-27] MEDS: BACITRACIN OINTMENT 15 GM TUBE 1 APPLIC TOPICAL (20:31)
[2022-12-27] MEDS: INSULIN GLARGINE (*BKC) 100 UNITS/ML 10 UNITS SUB-Q (20:48)
[2022-12-27] MEDS: METOPROLOL TARTRATE 25 MG TABLET 75 MG PO (21:00)
[2022-12-27] MEDS: MORPHINE SULFATE (*CRX) 2 MG/ML INJ (22:08)
[2022-12-27] MEDS: IPRATROPIUM BR 0.02% INH SOLN 0.5 MG/2.5 ML VIAL 1 MG (22:15)
[2022-12-28] VITALS (21 sets, daily range): BP systolic 97–132; BP diastolic 61–86; PULSE 68–119; RESP 20–32; TEMP 36.3–36.4; O2SAT 93–98
[2022-12-28] MEDS: dilTIAZem 100 MG/100 ML 100 MG/100 ML BAG 10 MG IV CONT (00:35)
[2022-12-28 04:11] LABS: Glucose Point of Care 251 mg/dl (65-105)
[2022-12-28 05:25] LABS: Creatinine, Random Urine 97 mg/dL (20-320); Total Protein/Creatinine Ratio 1052 mg/g creat (25-148)
--- NOTE | 2022-12-28 06:35 | PC.NURSE ---
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
--- NOTE | 2022-12-28 06:36 | PC.NURSE ---
2200 College Dean Kelly received ordered from MD Downs, IV push metoprolol, lasix, and morphine, plus labs and EKG
--- NOTE | 2022-12-28 06:36 | PC.NURSE ---
2230 EKG reported to MD Downs, a flutter RVR, order to transfer to IMU for Aicha gorman
--- NOTE | 2022-12-28 06:37 | PC.NURSE ---
report called to IMU nurse
--- NOTE | 2022-12-28 06:43 | PC.NURSE ---
This patient, Wilfredo Bose, was received from [ room 332] on 12/27/22 at 2305. Patient/family oriented to unit policies and routines
[2022-12-28] MEDS: FUROSEMIDE INJ 40 MG/4 ML VIAL (06:44)
[2022-12-28] MEDS: METOPROLOL TARTRATE INJ 5 MG/5 ML VIAL (06:44)
[2022-12-28] MEDS: GABAPENTIN 100 MG CAPSULE PO ×3 (06:47→20:45)
[2022-12-28] MEDS: POLYMYXIN/TRIMETHOPRIM OPHTH 10 ML DROPS 1 DROP EACH EYE (06:47)
[2022-12-28] MEDS: LEVOTHYROXINE SODIUM 100 MCG TABLET PO (06:48)
--- NOTE | 2022-12-28 06:50 | PC.NURSE ---
Paper documentation exists on this patient due to [facility] downtime on 12/27/22 from 2100 to 12/28/22 0620 .
[2022-12-28 07:19] LABS: Anion Gap 8 mmol/L (8-16); Blood Urea Nitrogen 73 mg/dL (9-20); Calcium 8.2 mg/dL (8.4-10.2); Carbon Dioxide 31 mmol/L (22-30); Chloride 96 mmol/L (98-107); Estimated CRCL calculation 34 ml/min; Estimated Glomerular Filt Rate 24; Glucose 159 mg/dL (65-110); Lactic Acid 0.7 mmol/L (0.7-2.0); Magnesium 2.6 mg/dL (1.6-2.3); NT Pro B Type Natriuretic Pept 21400 pg/mL (19.9-100); Phosphorus 3.7 mg/dL (2.5-4.5); Potassium 4.1 mmol/L (3.4-5.0); Sodium 135 mmol/L (137-145); Troponin I 0.019 ng/mL (0.000-0.034)
[2022-12-28 07:31] LABS: Basophils Percent Auto 0.5 % (0.2-1.2); Eosinophils Absolute Auto 0.1 K/mm3 (0-0.3); Eosinophils Percent Auto 0.6 % (0-4.4); Hematocrit 25.5 % (42.0-52.0); Hemoglobin 7.6 g/dL (14.0-18.0); Immature Granulocyte Absolute 0.06 K/mm3 (0.00-0.031); Immature Granulocyte Percent A 0.7 % (0-0.5); Lymphocytes Absolute Auto 0.29 K/mm3 (0.9-3.2); Lymphocytes Percent Auto 3.4 % (18.3-44.2); Mean Corpuscular HGB Conc 29.8 g/dl (32-36); Mean Corpuscular Hemoglobin 25.1 pg (26-34); Mean Corpuscular Volume 84.2 fl (80-100); Mean Platelet Volume 10.7 fl (7.4-10.4); Monocytes Absolute Auto 0.5 K/mm3 (0.1-0.6); Monocytes Percent Auto 6.3 % (2.6-8.5); Neutrophils Absolute Auto 7.5 K/mm3 (1.3-6.7); Neutrophils Percent Auto 88.5 % (45.5-73.1); Platelet Count Result 249 k/mm3 (150-375); Red Blood Count 3.03 M/mm3 (4.6-6.20); Red Cell Distribution Width 17.7 % (11.5-14.5); White Blood Count 8.5 K/mm3 (4.5-10.0)
[2022-12-28 07:32] LABS: Alveolar/Arterial O2 Gradient 82.8 mmHg; Base Excess ABG 4.5 mEq/l (+/-2.0); Carboxyhemoglobin 0.2 % THb (0-2.0); HCO3 ABG 29.7 mEq/l (22.0-26.0); Methemoglobin ABG 0.3 %THb (0-1.5); Oxygen Content ABG 11.9 %vol (16.0-22.0); Oxygen Saturation ABG 98.1 % (95.0-100.0); Oxyhemoglobin 96.7 % THb (90.0-100.0); PO2 FiO2 Ratio Arterial Blood 3.17 %; Reduced Hemoglobin 2.8 %THb (0-5.0); Total Hemoglobin 8.6 g/dL (12.0-18.0)
[2022-12-28 07:33] LABS: Device NON-INVASIVE VENT; Fractional Inspired Oxygen 35 %; Modified Allen's Test Pass; Non-Invasive Expiratory Pressure 8 CMH2O; Non-Invasive Inspiratory Pressure 14 CMH2O; Non-Invasive Vent Rate 12 /MIN; Site Drawn RIGHT RADIAL
[2022-12-28 07:46] LABS: Alanine Aminotransferase 14 U/L (6-50); Albumin Level 3.3 g/dL (3.5-5.1); Alkaline Phosphatase 187 U/L (38-126); Anion Gap 6 mmol/L (8-16); Aspartate Amino Transferase 22 U/L (17-59); Blood Urea Nitrogen 71 mg/dL (9-20); Calcium 7.9 mg/dL (8.4-10.2); Carbon Dioxide 32 mmol/L (22-30); Chloride 97 mmol/L (98-107); Estimated CRCL calculation 32 ml/min; Estimated Glomerular Filt Rate 23; Glucose 137 mg/dL (65-110); Magnesium 2.4 mg/dL (1.6-2.3); Potassium 3.8 mmol/L (3.4-5.0); Sodium 135 mmol/L (137-145)
[2022-12-28] MEDS: UMECLIDINIUM/VILANTEROL 62.5-25 MCG ELLIPTA 1 PUFF INHALATION (08:30)
[2022-12-28 08:41] LABS: Glucose Point of Care 159 mg/dl (65-105)
[2022-12-28 09:15] LABS: NT Pro B Type Natriuretic Pept 24600 pg/mL (19.9-100); Troponin I 0.021 ng/mL (0.000-0.034)
[2022-12-28 09:26] LABS: Anisocytosis 1+ (NORMAL); Hypochromasia 1+ (NORMAL); Ovalocytes 2+ (NORMAL); Platelet Estimate Adequate (Adequate); Poikilocytosis 1+ (NORMAL); Schistocytes Rare (NORMAL)
--- NOTE | 2022-12-28 09:54 | PM.PNCARD ---
Progress Note: A&P Assessment and Plan (1) CHF (congestive heart failure): Qualifiers: Heart failure chronicity: acute Heart failure type: diastolic Qualified Code(s): I50.31 - Acute diastolic (congestive) heart failure Code(s): I50.9 - Heart failure, unspecified Status: Acute Assessment and Plan: Acute heart failure with preserved ejection fraction and right-sided heart failure. Presented with dyspnea on exertion, abdominal distention and scrotal edema. He has RV dysfunction and diastolic heart failure. Echo with normal LVSF, EF 50-55%, mild TR, no other significant valve pathology. Diuresed very well with IV Lasix. Nearly 16 liters negative to date. Continue with intermittent IV diuresis. Currently getting IV Lasix 60mg IV BID. Accurate intake and output, daily weights Low Na diet Status post right thoracentesis 1 L fluid removal 12/21/22. PT OT Wean O2 as tolerated. (2) Acute renal failure superimposed on chronic kidney disease: Code(s): N17.9 - Acute kidney failure, unspecified; N18.9 - Chronic kidney disease, unspecified Status: Acute Assessment and Plan: Worsening renal function. Nephrology following along. (3) Hypertension associated with diabetes: Code(s): E11.59 - Type 2 diabetes mellitus with other circulatory complications; I15.2 - Hypertension secondary to endocrine disorders Status: Acute Assessment and Plan: BP reasonably controlled. Continue hydralazine and Metoprolol (4) Paroxysmal atrial fibrillation: Code(s): I48.0 - Paroxysmal atrial fibrillation Status: Chronic Assessment and Plan: Patient currently in atrial flutter with variable AV block. Continue stroke risk reduction with Eliquis 5 mg twice daily. Monitor for bleeding. Follow H&H. Went into RVR overnight on 12/27-12/28. Started on Diltiazem drip. Metoprolol increased to 75mg BID. Will wean Dilt drip off and increase beta alexandra as tolerated. 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 (6) Coronary artery disease: Code(s): I25.10 - Atherosclerotic heart disease of [place] coronary artery without angina pectoris Status: Acute Assessment and Plan: Elevated troponins are not related to acute plaque rupture infarction in setting of acute on chronic kidney failure and CHF, consistent with a type 2 infarction. Continue aspirin, atorvastatin 40 bedtime, metoprolol. Subjective Date/time seen: 12/28/22 09:54 Interval history: Reason for visit: Decompensated heart failure, atrial flutter HPI: Patient is a 57-year-old male who has a history of coronary disease.? Details are not known.? He follows with [facility].? He has had progressive lower extremity and scrotal edema as well as worsening shortness of breath over the past several months.? Symptoms worsened to the point that his testicles and foreskin were swollen and painful and decided to come to the hospital for further evaluation.? He was started on IV diuretics and was found to be in volume overload and is already feeling a little bit better with less swelling and less shortness of breath.? He does describe some orthopnea.? No chest pain.? No syncope, presyncope, paroxysmal nocturnal dyspnea.? Does have occasional palpitations.? He was recently admitted to this hospital for treatment of cellulitis. 12/16: Continues to complain of shortness of breath today.? Does not think his breathing has improved any since yesterday.? Has shortness of breath with minimal exertion.? No chest pain, palpitations. 12/17: Feeling better. No new complaints this morning. 12/18: Diuresing well. No shortness of breath. Lower extremity edema significantly improved. Per discussion with RN, cannot wean off oxygen. Patient was not on home oxygen. Desats quickly without supplemental oxygen.
[2022-12-28] MEDS: METOPROLOL TARTRATE 25 MG TABLET 75 MG PO (10:03)
[2022-12-28] MEDS: ASPIRIN 81 MG ENTERIC TABLET PO (10:04)
[2022-12-28] MEDS: ISOSORBIDE MONONITRATE 30 MG TAB.ER.24H PO (10:04)
[2022-12-28] MEDS: PYRIDOXINE HCL 50 MG TABLET PO (10:04)
[2022-12-28] MEDS: busPIRone HCL 10 MG TABLET PO ×3 (10:05→16:29)
[2022-12-28] MEDS: FAMOTIDINE 20 MG TABLET PO (10:05)
[2022-12-28] MEDS: busPIRone HCL 5 MG TABLET PO ×3 (10:05→16:29)
[2022-12-28] MEDS: ASCORBIC ACID 500 MG TABLET PO (10:05)
[2022-12-28] MEDS: FUROSEMIDE INJ 40 MG/4 ML VIAL 60 MG IV PUSH (10:16)
[2022-12-28] MEDS: FLUTICASONE PROPIONATE 0.05% NA SPR 16 GM BTL (*BKC) 1 SPRAY NASAL (10:16)
[2022-12-28] MEDS: BACITRACIN OINTMENT 15 GM TUBE 1 APPLIC TOPICAL ×2 (10:17→20:48)
[2022-12-28] MEDS: PANTOPRAZOLE SODIUM IV 40 MG VIAL IV PUSH ×2 (10:17→20:44)
[2022-12-28] MEDS: TOLNAFTATE 1% POWDER 45 GM BTL 1 APPLIC TOPICAL ×2 (10:18→20:48)
[2022-12-28] MEDS: polyethylene glycoL 3350 17 GM POWD.PACK PO (10:20)
[2022-12-28] MEDS: traMADol HCL (*CRX) 50 MG TABLET PO (10:42)
[2022-12-28 12:07] LABS: Glucose Point of Care 157 mg/dl (65-105)
[2022-12-28] MEDS: FERROUS SULFATE 324 MG TABLET PO ×2 (12:39→16:29)
--- NOTE | 2022-12-28 12:54 | PM.IMPN ---
Progress Note: A&P Assessment and Plan (1) CHF (congestive heart failure): Qualifiers: Heart failure chronicity: acute Heart failure type: diastolic Qualified Code(s): I50.31 - Acute diastolic (congestive) heart failure Code(s): I50.9 - Heart failure, unspecified Status: Acute Assessment and Plan: Creatinine worsening. May need to hold Lasix. Will defer to Nephrology & Cardiology (2) Respiratory failure with hypoxia: Code(s): J96.91 - Respiratory failure, unspecified with hypoxia Status: Acute Assessment and Plan: Appreciate pulmonary input. pt is on oxygen and BIPAP at night currently Discussed with Pulmonary he will need sleep study as an outpatient prior to evaluation for (3) Acute renal failure superimposed on chronic kidney disease: Code(s): N17.9 - Acute kidney failure, unspecified; N18.9 - Chronic kidney disease, unspecified Status: Acute Assessment and Plan: Creatinine worsening. Monitor BMP. 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 Status: Chronic Assessment and Plan: Continue (6) Anemia, chronic disease: Code(s): D63.8 - Anemia in other chronic diseases classified elsewhere Status: Acute Assessment and Plan: Stable, follow-up (7) Diabetes: Code(s): E11.9 - Type 2 diabetes mellitus without complications Status: Acute Assessment and Plan: Blood sugars reviewed and adequately controlled (8) Paroxysmal atrial fibrillation: Code(s): I48.0 - Paroxysmal atrial fibrillation Status: Chronic Assessment and Plan: Sinus rhythm and anticoagulated Subjective Date/time seen: 12/28/22 12:54 Interval history: Patient states he is not doing okay. Feels short of breath Review of Systems Review of Systems: All systems reviewed & are unremarkable except as noted in HPI and below Exam Narrative: General alert mildly dyspneic not in acute distress Chest with coarse breath sounds mildy tachypneic, conversational dyspnea Heart rate regular with no audible murmur Extremities no left foot edema, right with BKA and nonpitting edema of stump Abdomen protuberant but soft nontender with good bowel sounds no palpable masses Musculoskeletal right BKA as noted Objective Data Vital Signs Vital Signs: Vital Signs - 24 hr 12/27/22 12:56 12/27/22 13:40 12/27/22 17:18 Temperature 98.3 F 97.8 F Pulse Rate 120 H 121 H 100 Respiratory Rate 22 H 22 H 24 H Blood Pressure 125/76 131/94 H Pulse Oximetry 91 95 Oxygen Delivery Oxygen Flow Rate 12/27/22 13:56 12/27/22 14:56 12/27/22 15:56 Temperature 97.7 F 97.8 F 98.1 F Pulse Rate 121 H 119 H 120 H Respiratory Rate 20 20 20 Blood Pressure 136/80 140/81 134/92 H Pulse Oximetry 96 97 94 Oxygen Delivery Oxygen Flow Rate 12/27/22 16:56 12/27/22 16:00 12/27/22 20:54 Temperature 98.0 F Pulse Rate 121 H 113 H 124 H Respiratory Rate 20 32 H Blood Pressure 127/85 Pulse Oximetry 96 98 Oxygen Delivery BiPAP Oxygen Flow Rate 12/28/22 02:30 12/27/22 20:00 12/27/22 21:00 Temperature Pulse Rate 80 120 H 123 H Respiratory Rate 22 H 24 H 22 H Blood Pressure Pulse Oximetry 97 95 95 Oxygen Delivery BiPAP Nasal Cannula BiPAP Oxygen Flow Rate 2 12/27/22 21:00 12/27/22 20:00 12/27/22 20:32 Temperature 97.5 F L Pulse Rate 120 H 124 H 123 H Respiratory Rate 38 H Blood Pressure 142/95 H Pulse Oximetry 95 Oxygen Delivery Oxygen Flow Rate 12/27/22 21:15 12/28/22 08:30 12/28/22 08:30 Temperature Pulse Rate 125 H 82 82 Respiratory Rate 25 H 24 H 24 H Blood Pressure Pulse Oximetry 94 93 Oxygen Delivery BiPA
--- NOTE | 2022-12-28 13:19 | P.PNNP_ITS ---
Progress Note: A&P Assessment and Plan (1) Chronic kidney disease, stage IV (severe): Code(s): N18.4 - Chronic kidney disease, stage 4 (severe) Status: Chronic Assessment and Plan: * creatinine has been fluctuating ~ 2.0 - 2.5mg/dl since earlier this year * suspected etiology of CKD due to hypertension, diabetes, and vascular disease * however, his CHF and need for diuresis as well as suspected TIERRA likely rachel bert a role * evaluation noted: * renal ultrasound normal * urine electrolytes look prerena (inspite of clear evidence of volume overload) * urine eosinophils negative * serological testing pending * may have to accept a higher creatinine due to necessity of diuretics to maintain his volume status * follow repeat labs and UOP (2) CHF (congestive heart failure): Qualifiers: Heart failure chronicity: acute Heart failure type: diastolic Qualified Code(s): I50.31 - Acute diastolic (congestive) heart failure Code(s): I50.9 - Heart failure, unspecified Status: Acute Assessment and Plan: * acute exacerbation * appears to be right sided heart failure + diastolic dysfunction * Echo results noted -- normal LVSF, EF 50-55%, mild TR, no other significant valve pathology * presented with dyspnea on exertion, abdominal distention and scrotal edema * reasonable diuresis since admission * diuretic held for a time due to rising creatinine * follow I/Os, daily weights, and respiratory status * s/p right thoracentesis (on 12/21/22) * back on IV diuretics * concerning that diuretic therapy alone may not optimize volume status -- may need more invasive (i.e. dialysis/ultrafiltration) interventions * Cardiology following (3) Respiratory failure with hypoxia: Code(s): J96.91 - Respiratory failure, unspecified with hypoxia Status: Acute Assessment and Plan: * multifactorial: * possible COPD * suspected TIERRA/OHS * fluid/volume overload * CHF * anemia * Pulmonary following with recommendations noted * follow respiratory status (4) Hypertension: Qualifiers: Hypertension type: primary hypertension Qualified Code(s): I10 - Essential (primary) hypertension Code(s): I10 - Essential (primary) hypertension Status: Chronic Assessment and Plan: * reasonable control at this time * follow trend of hemodynamics (5) Anemia: Code(s): D64.9 - Anemia, unspecified Status: Chronic Assessment and Plan: * partly due to CKD but worsened by acute illness * on Epogen * PRBC transfusion per protocol * follow trend of H/H (6) Diabetes mellitus with chronic kidney disease: Code(s): E11.22 - Type 2 diabetes mellitus with diabetic chronic kidney disease Status: Chronic Assessment and Plan: * follow accuchecks * glycemic control per hospitalists I had a long and extensive discussion ( greater than 25 minutes) with the patient as well as his father at bedside regarding his ongoing shortness of breath, worsening renal dysfunction, fluid overload, and events overnight. I voiced my concerns to them that conservative therapy to try and optimize his fluid status has not been as successful as it was when he was 1st admitted. I brought up the possibility of renal replacement therapy/dialysis has a temporary measure the possibly get more fluid off than what diuretics were achieving although I did voiced my concern that dialysis may do a better job than medications and make him more dependent on this intervention. He appeared
--- NOTE | 2022-12-28 13:19 | PM.PNNEP ---
Progress Note: A&P Assessment and Plan (1) Chronic kidney disease, stage IV (severe): Code(s): N18.4 - Chronic kidney disease, stage 4 (severe) Status: Chronic Assessment and Plan: creatinine has been fluctuating ~ 2.0 - 2.5mg/dl since earlier this year suspected etiology of CKD due to hypertension, diabetes, and vascular disease however, his CHF and need for diuresis as well as suspected TIERRA likely playing a role evaluation noted: renal ultrasound normal urine electrolytes look prerena (inspite of clear evidence of volume overload) urine eosinophils negative serological testing pending may have to accept a higher creatinine due to necessity of diuretics to maintain his volume status follow repeat labs and UOP (2) CHF (congestive heart failure): Qualifiers: Heart failure chronicity: acute Heart failure type: diastolic Qualified Code(s): I50.31 - Acute diastolic (congestive) heart failure Code(s): I50.9 - Heart failure, unspecified Status: Acute Assessment and Plan: acute exacerbation appears to be right sided heart failure + diastolic dysfunction Echo results noted -- normal LVSF, EF 50-55%, mild TR, no other significant valve pathology presented with dyspnea on exertion, abdominal distention and scrotal edema reasonable diuresis since admission diuretic held for a time due to rising creatinine follow I/Os, daily weights, and respiratory status s/p right thoracentesis (on 12/21/22) back on IV diuretics concerning that diuretic therapy alone may not optimize volume status -- may need more invasive (i.e. dialysis/ultrafiltration) interventions Cardiology following (3) Respiratory failure with hypoxia: Code(s): J96.91 - Respiratory failure, unspecified with hypoxia Status: Acute Assessment and Plan: multifactorial: possible COPD suspected TIERRA/OHS fluid/volume overload CHF anemia Pulmonary following with recommendations noted follow respiratory status (4) Hypertension: Qualifiers: Hypertension type: primary hypertension Qualified Code(s): I10 - Essential (primary) hypertension Code(s): I10 - Essential (primary) hypertension Status: Chronic Assessment and Plan: reasonable control at this time follow trend of hemodynamics (5) Anemia: Code(s): D64.9 - Anemia, unspecified Status: Chronic Assessment and Plan: partly due to CKD but worsened by acute illness on Epogen PRBC transfusion per protocol follow trend of H/H (6) Diabetes mellitus with chronic kidney disease: Code(s): E11.22 - Type 2 diabetes mellitus with diabetic chronic kidney disease Status: Chronic Assessment and Plan: follow accuchecks glycemic control per hospitalists I had a long and extensive discussion ( greater than 25 minutes) with the patient as well as his father at bedside regarding his ongoing shortness of breath, worsening renal dysfunction, fluid overload, and events overnight. I voiced my concerns to them that conservative therapy to try and optimize his fluid status has not been as successful as it was when he was 1st admitted. I brought up the possibility of renal replacement therapy/dialysis has a temporary measure the possibly get more fluid off than what diuretics were achieving although I did voiced my concern that dialysis may do a better job than medications and make him more dependent on this intervention. He appeared to voice understanding. Will tentatively plan for more aggressive diuretic therapy and reassess the next 24 hours if further intervention is needed. Case discussed with Dr. Urena as well as Dr. Zabala. Will continue to follow. Subjective Date/time seen: 12/28/22 13:19 Interval history: Follow-up for chronic kidney disease and fluctuating creatinine. Moved back to IMU as issues with Afib overnight requiring diltiazem gtt for
--- NOTE | 2022-12-28 13:21 | PCNWS ---
Weekly nutritional screen. Patient is tolerating current diet with adequate intake. Intakes 50-85%. On continuous bipap for shortness of breath today. No weight loss reported. No nutritional needs at this time. Continue to follow
[2022-12-28] MEDS: hydrALAZINE HCL 50 MG TABLET 100 MG PO ×2 (14:52→20:44)
[2022-12-28] MEDS: metOLazone 5 MG TABLET 10 MG PO (16:29)
[2022-12-28] MEDS: BUMETANIDE INJ 2.5 MG/10 ML VIAL 2 MG IV PUSH (16:30)
[2022-12-28 16:54] LABS: Glucose Point of Care 170 mg/dl (65-105)
[2022-12-28] MEDS: METOPROLOL TARTRATE INJ 5 MG/5 ML VIAL IV PUSH (18:46)
[2022-12-28 19:32] LABS: Glucose Point of Care 170 mg/dl (65-105)
[2022-12-28] MEDS: traZODone HCL 50 MG TABLET 100 MG PO (20:44)
[2022-12-28] MEDS: QUEtiapine FUMARATE 12.5 MG TABLET PO (20:44)
[2022-12-28] MEDS: AMITRIPTYLINE HCL 25 MG TABLET 50 MG PO (20:44)
[2022-12-28] MEDS: ATORVASTATIN 40 MG TABLET PO (20:44)
[2022-12-28] MEDS: METOPROLOL TARTRATE 50 MG TAB 100 MG PO (20:47)
[2022-12-28] MEDS: INSULIN GLARGINE (*BKC) 100 UNITS/ML 10 UNITS SUB-Q (22:22)
[2022-12-29] VITALS (24 sets, daily range): BP systolic 108–138; BP diastolic 66–86; PULSE 60–119; RESP 22–38; TEMP 35.6–37; O2SAT 95–100
[2022-12-29] MEDS: ALBUTEROL SULFATE NEB 2.5 MG/3 ML INH INHALATION ×3 (03:11→16:53)
[2022-12-29] MEDS: BUMETANIDE INJ 2.5 MG/10 ML VIAL 2 MG IV PUSH ×3 (03:14→17:18)
[2022-12-29] MEDS: traMADol HCL (*CRX) 50 MG TABLET PO ×2 (05:42→17:24)
[2022-12-29] MEDS: GABAPENTIN 100 MG CAPSULE PO ×3 (05:46→21:15)
[2022-12-29] MEDS: hydrALAZINE HCL 50 MG TABLET 100 MG PO ×3 (05:47→20:57)
[2022-12-29] MEDS: LEVOTHYROXINE SODIUM 100 MCG TABLET PO (05:47)
[2022-12-29 07:58] LABS: Glucose Point of Care 146 mg/dl (65-105)
[2022-12-29] MEDS: UMECLIDINIUM/VILANTEROL 62.5-25 MCG ELLIPTA 1 PUFF INHALATION (08:52)
[2022-12-29 09:24] LABS: Basophils Percent Auto 0.2 % (0.2-1.2); Eosinophils Absolute Auto 0.1 K/mm3 (0-0.3); Eosinophils Percent Auto 0.7 % (0-4.4); Hematocrit 25.8 % (42.0-52.0); Hemoglobin 7.6 g/dL (14.0-18.0); Immature Granulocyte Absolute 0.06 K/mm3 (0.00-0.031); Immature Granulocyte Percent A 0.7 % (0-0.5); Lymphocytes Absolute Auto 0.29 K/mm3 (0.9-3.2); Lymphocytes Percent Auto 3.5 % (18.3-44.2); Mean Corpuscular HGB Conc 29.5 g/dl (32-36); Mean Corpuscular Hemoglobin 24.6 pg (26-34); Mean Corpuscular Volume 83.5 fl (80-100); Mean Platelet Volume 10.7 fl (7.4-10.4); Monocytes Absolute Auto 0.5 K/mm3 (0.1-0.6); Monocytes Percent Auto 6.3 % (2.6-8.5); Neutrophils Absolute Auto 7.4 K/mm3 (1.3-6.7); Neutrophils Percent Auto 88.6 % (45.5-73.1); Platelet Count Result 250 k/mm3 (150-375); Red Blood Count 3.09 M/mm3 (4.6-6.20); Red Cell Distribution Width 18.2 % (11.5-14.5); White Blood Count 8.4 K/mm3 (4.5-10.0)
[2022-12-29] MEDS: metOLazone 5 MG TABLET 10 MG PO ×2 (09:31→17:18)
[2022-12-29] MEDS: busPIRone HCL 10 MG TABLET PO ×3 (09:31→17:19)
[2022-12-29] MEDS: ASCORBIC ACID 500 MG TABLET PO (09:31)
[2022-12-29] MEDS: FAMOTIDINE 20 MG TABLET PO ×2 (09:31→20:59)
[2022-12-29] MEDS: PANTOPRAZOLE SODIUM IV 40 MG VIAL IV PUSH ×2 (09:32→20:57)
[2022-12-29] MEDS: busPIRone HCL 5 MG TABLET PO ×3 (09:32→17:19)
[2022-12-29] MEDS: ISOSORBIDE MONONITRATE 30 MG TAB.ER.24H PO (09:32)
[2022-12-29] MEDS: FLUTICASONE PROPIONATE 0.05% NA SPR 16 GM BTL (*BKC) 1 SPRAY NASAL ×2 (09:33→20:59)
[2022-12-29] MEDS: METOPROLOL TARTRATE 50 MG TAB 100 MG PO ×2 (09:33→20:58)
[2022-12-29] MEDS: PYRIDOXINE HCL 50 MG TABLET PO (09:33)
[2022-12-29] MEDS: BACITRACIN OINTMENT 15 GM TUBE 1 APPLIC TOPICAL ×2 (09:34→20:59)
[2022-12-29] MEDS: TOLNAFTATE 1% POWDER 45 GM BTL 1 APPLIC TOPICAL ×2 (09:37→21:02)
[2022-12-29] MEDS: EPOETIN ALFA-EPBX 10,000 UNITS/ML VIAL 10000 UNITS SUB-Q (09:37)
[2022-12-29] MEDS: polyethylene glycoL 3350 17 GM POWD.PACK PO (09:37)
[2022-12-29] MEDS: ASPIRIN 81 MG ENTERIC TABLET PO (09:37)
[2022-12-29 09:38] LABS: Albumin Level 3.3 g/dL (3.5-5.1); Anion Gap 9 mmol/L (8-16); Blood Urea Nitrogen 81 mg/dL (9-20); Carbon Dioxide 31 mmol/L (22-30); Chloride 97 mmol/L (98-107); Estimated CRCL calculation 28 ml/min; Estimated Glomerular Filt Rate 19; Glucose 142 mg/dL (65-110); Phosphorus 4.1 mg/dL (2.5-4.5); Sodium 137 mmol/L (137-145)
--- NOTE | 2022-12-29 09:44 | PM.PNCARD ---
Progress Note: A&P Assessment and Plan (1) CHF (congestive heart failure): Qualifiers: Heart failure chronicity: acute Heart failure type: diastolic Qualified Code(s): I50.31 - Acute diastolic (congestive) heart failure Code(s): I50.9 - Heart failure, unspecified Status: Acute Assessment and Plan: Acute heart failure with preserved ejection fraction and right-sided heart failure. Presented with dyspnea on exertion, abdominal distention and scrotal edema. He has RV dysfunction and diastolic heart failure. Echo with normal LVSF, EF 50-55%, mild TR, no other significant valve pathology. Status post right thoracentesis 1 L fluid removal 12/21/22. At beginning of hospitalization, patient was diuresing well with intermittent IV Lasix. About net negative 16 liters thus far. However, has had poor response to diuretics. 12/28, Lasix changed to Bumex and Metolazone was added, however only had 500 ccs of urine on 12/28, 675ccs thus far for 12/29. Discussed with Dr. Caldwell - if patient is not responding to diuretic therapy, he may need temporary dialysis. (2) Acute renal failure superimposed on chronic kidney disease: Code(s): N17.9 - Acute kidney failure, unspecified; N18.9 - Chronic kidney disease, unspecified Status: Acute Assessment and Plan: Worsening renal function. Nephrology following along. (3) Hypertension associated with diabetes: Code(s): E11.59 - Type 2 diabetes mellitus with other circulatory complications; I15.2 - Hypertension secondary to endocrine disorders Status: Acute Assessment and Plan: BP reasonably controlled. Continue hydralazine and Metoprolol (4) Paroxysmal atrial fibrillation: Code(s): I48.0 - Paroxysmal atrial fibrillation Status: Chronic Assessment and Plan: Patient currently in atrial flutter with variable AV block. Continue stroke risk reduction with Eliquis 5 mg twice daily. In RVR - Metoprolol increased to 100mg BID. Will give Amiodarone bolus this morning. (5) Chronic anticoagulation: Code(s): Z79.01 - assisted (current) use of anticoagulants Status: Chronic Assessment and Plan: Continue Eliquis 5 mg twice daily. (6) Coronary artery disease: Code(s): I25.10 - Atherosclerotic heart disease of [place] coronary artery without angina pectoris Status: Acute Assessment and Plan: Elevated troponins are not related to acute plaque rupture infarction in setting of acute on chronic kidney failure and CHF, consistent with a type 2 infarction. Continue aspirin, atorvastatin 40 bedtime, metoprolol. Subjective Date/time seen: 12/29/22 09:44 Interval history: Reason for visit: Decompensated heart failure, atrial flutter HPI: Patient is a 57-year-old male who has a history of coronary disease.? Details are not known.? He follows with [facility].? He has had progressive lower extremity and scrotal edema as well as worsening shortness of breath over the past several months.? Symptoms worsened to the point that his testicles and foreskin were swollen and painful and decided to come to the hospital for further evaluation.? He was started on IV diuretics and was found to be in volume overload and is already feeling a little bit better with less swelling and less shortness of breath.? He does describe some orthopnea.? No chest pain.? No syncope, presyncope, paroxysmal nocturnal dyspnea.? Does have occasional palpitations.? He was recently admitted to this hospital for treatment of cellulitis. 12/16: Continues to complain of shortness of breath today.? Does not think his breathing has improved any since yesterday.? Has shortness of breath with minimal exertion.? No chest pain, palpitations. 12/17: Feeling better. No new complaints this morning. 12/18: Diuresing well. No shortness of breath. Lower extremity edema significantly improved. Per discussion with RN, cannot wean off oxygen. Patient was not on
[2022-12-29] MEDS: AMIODARONE 150 MG/D5W 100 ML 150 MG/100 ML BAG 600 MG IV CONT (10:39)
[2022-12-29 11:18] LABS: Hypochromasia 1+ (NORMAL); Platelet Estimate Adequate (Adequate)
[2022-12-29 11:19] LABS: Anisocytosis 1+ (NORMAL); Ovalocytes 2+ (NORMAL)
[2022-12-29 11:20] LABS: Schistocytes None Seen (NORMAL)
[2022-12-29 11:23] LABS: Glucose Point of Care 186 mg/dl (65-105)
--- NOTE | 2022-12-29 11:25 | PM.IMPN ---
Progress Note: A&P Assessment and Plan (1) CHF (congestive heart failure): Qualifiers: Heart failure chronicity: acute Heart failure type: diastolic Qualified Code(s): I50.31 - Acute diastolic (congestive) heart failure Code(s): I50.9 - Heart failure, unspecified Status: Acute Assessment and Plan: Continue beta-alexandra. Patient switched to Bumex and metolazone. If it does not respond to diuresis he may need dialysis (2) Respiratory failure with hypoxia: Code(s): J96.91 - Respiratory failure, unspecified with hypoxia Status: Acute Assessment and Plan: Appreciate pulmonary input. pt is on oxygen and BIPAP at night currently Discussed with Pulmonary he will need sleep study as an outpatient (3) Acute renal failure superimposed on chronic kidney disease: Code(s): N17.9 - Acute kidney failure, unspecified; N18.9 - Chronic kidney disease, unspecified Status: Acute Assessment and Plan: Creatinine slightly better this morning. Patient switched to Bumex and metolazone combination. If he does not respond to diuretics he may need dialysis (4) HTN (hypertension): Code(s): I10 - Essential (primary) hypertension Status: Acute Assessment and Plan: Stable (5) Anemia, chronic disease: Code(s): D63.8 - Anemia in other chronic diseases classified elsewhere Status: Acute Assessment and Plan: Stable, follow-up (6) Diabetes: Code(s): E11.9 - Type 2 diabetes mellitus without complications Status: Acute Assessment and Plan: Blood sugars reviewed and adequately controlled (7) Paroxysmal atrial fibrillation: Code(s): I48.0 - Paroxysmal atrial fibrillation Status: Chronic Assessment and Plan: Sinus rhythm. 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 Abdomen protuberant but soft nontender with good bowel sounds no palpable masses Musculoskeletal right BKA as noted Objective Data Vital Signs Vital Signs: Vital Signs - 24 hr 12/28/22 12:00 12/28/22 13:25 12/28/22 16:03 Temperature Pulse Rate 77 87 Respiratory Rate 28 H 20 Blood Pressure Pulse Oximetry 97 97 93 Oxygen Delivery Nasal Cannula BiPAP Nasal Cannula Oxygen Flow Rate 2 3 Fraction of Inspired Oxygen 12/28/22 16:30 12/28/22 16:40 12/28/22 16:45 Temperature Pulse Rate 86 89 86 Respiratory Rate 30 H 30 H 30 H Blood Pressure Pulse Oximetry 97 Oxygen Delivery BiPAP Oxygen Flow Rate Fraction of Inspired Oxygen 12/28/22 16:35 12/28/22 12:00 12/28/22 14:00 Temperature 97.4 F L Pulse Rate 85 77 77 Respiratory Rate 28 H Blood Pressure 106/65 Pulse Oximetry 97 Oxygen Delivery Oxygen Flow Rate Fraction of Inspired Oxygen 12/28/22 16:00 12/28/22 18:00 12/28/22 16:00 Temperature Pulse Rate 86 95 Respiratory Rate Blood Pressure Pulse Oximetry Oxygen Delivery BiPAP Oxygen Flow Rate Fraction of Inspired Oxygen 12/28/22 18:46 12/28/22 19:39 12/28/22 20:16 Temperature 97.5 F L Pulse Rate 110 H 104 H 110 H Respiratory Rate 29 H 25 H Blood Pressure 132/86 Pulse Oximetry 98 98 Oxygen Delivery BiPAP Oxygen Flow Rate Fraction of Inspired Oxygen 12/28/22 20:47 12/29/22 00:00 12/28/22 20:00 Temperature 98.1 F Pulse Rate 101 H 116 H Respiratory Rate 38 H Blood Pressure 115/86 Pulse Oximetry 96 98 Oxygen Delivery BiPAP Oxygen Flow R
--- NOTE | 2022-12-29 12:38 | P.PNNP_ITS ---
Progress Note: A&P Assessment and Plan (1) Chronic kidney disease, stage IV (severe): Code(s): N18.4 - Chronic kidney disease, stage 4 (severe) Status: Chronic Assessment and Plan: * creatinine has been fluctuating ~ 2.0 - 2.5mg/dl since earlier this year * suspected etiology of CKD due to hypertension, diabetes, and vascular disease * however, his CHF and need for diuresis as well as suspected TIERRA likely rachel bert a role * evaluation noted: * renal ultrasound normal * urine electrolytes look prerena (inspite of clear evidence of volume overload) * urine eosinophils negative * serological testing pending * may have to accept a higher creatinine due to necessity of diuretics to maintain his volume status * unfortunately, high dose diuretics not achieving much urine output * he may renal replacement therapy/dialysis/ultrafiltration * follow repeat labs and UOP (2) CHF (congestive heart failure): Qualifiers: Heart failure chronicity: acute Heart failure type: diastolic Qualified Code(s): I50.31 - Acute diastolic (congestive) heart failure Code(s): I50.9 - Heart failure, unspecified Status: Acute Assessment and Plan: * acute exacerbation * appears to be right sided heart failure + diastolic dysfunction * Echo results noted -- normal LVSF, EF 50-55%, mild TR, no other significant valve pathology * presented with dyspnea on exertion, abdominal distention and scrotal edema * reasonable diuresis since admission * diuretic held for a time due to rising creatinine * follow I/Os, daily weights, and respiratory status * s/p right thoracentesis (on 12/21/22) * back on IV diuretics * concerning that diuretic therapy alone may not optimize volume status -- may need more invasive (i.e. dialysis/ultrafiltration) interventions * Cardiology following (3) Respiratory failure with hypoxia: Code(s): J96.91 - Respiratory failure, unspecified with hypoxia Status: Acute Assessment and Plan: * multifactorial: * possible COPD * suspected TIERRA/OHS * fluid/volume overload * CHF * anemia * Pulmonary following with recommendations noted * follow respiratory status (4) Hypertension: Qualifiers: Hypertension type: primary hypertension Qualified Code(s): I10 - Essential (primary) hypertension Code(s): I10 - Essential (primary) hypertension Status: Chronic Assessment and Plan: * reasonable control at this time * follow trend of hemodynamics (5) Anemia: Code(s): D64.9 - Anemia, unspecified Status: Chronic Assessment and Plan: * partly due to CKD but worsened by acute illness * on Epogen * PRBC transfusion per protocol * follow trend of H/H (6) Diabetes mellitus with chronic kidney disease: Code(s): E11.22 - Type 2 diabetes mellitus with diabetic chronic kidney disease Status: Chronic Assessment and Plan: * follow accuchecks * glycemic control per hospitalists Will another 24 hours of current therapy since high dose diuretics initiated late yesterday...however, I still have concerns that 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 Will continue to follow. Subjective Date/time seen: 12/29/22 12:38 Interval history: Follow-up for chronic kidney disease and fluctuating creatinine as well as
--- NOTE | 2022-12-29 12:38 | PM.PNNEP ---
Progress Note: A&P Assessment and Plan (1) Chronic kidney disease, stage IV (severe): Code(s): N18.4 - Chronic kidney disease, stage 4 (severe) Status: Chronic Assessment and Plan: creatinine has been fluctuating ~ 2.0 - 2.5mg/dl since earlier this year suspected etiology of CKD due to hypertension, diabetes, and vascular disease however, his CHF and need for diuresis as well as suspected TIERRA likely playing a role evaluation noted: renal ultrasound normal urine electrolytes look prerena (inspite of clear evidence of volume overload) urine eosinophils negative serological testing pending may have to accept a higher creatinine due to necessity of diuretics to maintain his volume status unfortunately, high dose diuretics not achieving much urine output he may renal replacement therapy/dialysis/ultrafiltration follow repeat labs and UOP (2) CHF (congestive heart failure): Qualifiers: Heart failure chronicity: acute Heart failure type: diastolic Qualified Code(s): I50.31 - Acute diastolic (congestive) heart failure Code(s): I50.9 - Heart failure, unspecified Status: Acute Assessment and Plan: acute exacerbation appears to be right sided heart failure + diastolic dysfunction Echo results noted -- normal LVSF, EF 50-55%, mild TR, no other significant valve pathology presented with dyspnea on exertion, abdominal distention and scrotal edema reasonable diuresis since admission diuretic held for a time due to rising creatinine follow I/Os, daily weights, and respiratory status s/p right thoracentesis (on 12/21/22) back on IV diuretics concerning that diuretic therapy alone may not optimize volume status -- may need more invasive (i.e. dialysis/ultrafiltration) interventions Cardiology following (3) Respiratory failure with hypoxia: Code(s): J96.91 - Respiratory failure, unspecified with hypoxia Status: Acute Assessment and Plan: multifactorial: possible COPD suspected TIERRA/OHS fluid/volume overload CHF anemia Pulmonary following with recommendations noted follow respiratory status (4) Hypertension: Qualifiers: Hypertension type: primary hypertension Qualified Code(s): I10 - Essential (primary) hypertension Code(s): I10 - Essential (primary) hypertension Status: Chronic Assessment and Plan: reasonable control at this time follow trend of hemodynamics (5) Anemia: Code(s): D64.9 - Anemia, unspecified Status: Chronic Assessment and Plan: partly due to CKD but worsened by acute illness on Epogen PRBC transfusion per protocol follow trend of H/H (6) Diabetes mellitus with chronic kidney disease: Code(s): E11.22 - Type 2 diabetes mellitus with diabetic chronic kidney disease Status: Chronic Assessment and Plan: follow accuchecks glycemic control per hospitalists Will another 24 hours of current therapy since high dose diuretics initiated late yesterday...however, I still have concerns that 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 Will continue to follow. Subjective Date/time seen: 12/29/22 12:38 Interval history: Follow-up for chronic kidney disease and fluctuating creatinine as well as volume overload. Despite transition to high dose diuretic therapy, he has not made very much urine in the last 24 hours and he remains short of breath; renal function a bit worse by AM labs (but not surprising given increase in diuretic regimen); no other significant changes overnight or earlier this morning; on BiPAP at the time of my visit. Exam Narrative: General: middle aged male in NAD Heart: normal S1 and S2; no rub Lungs: coarse and decreased at bases Abd
[2022-12-29] MEDS: FERROUS SULFATE 324 MG TABLET PO ×2 (14:35→17:19)
[2022-12-29 17:09] LABS: Glucose Point of Care 154 mg/dl (65-105)
[2022-12-29 20:28] LABS: Glucose Point of Care 170 mg/dl (65-105)
[2022-12-29] MEDS: QUEtiapine FUMARATE 12.5 MG TABLET PO (20:58)
[2022-12-29] MEDS: AMITRIPTYLINE HCL 25 MG TABLET 50 MG PO (20:59)
[2022-12-29] MEDS: traZODone HCL 50 MG TABLET 100 MG PO (20:59)
[2022-12-29] MEDS: ATORVASTATIN 40 MG TABLET PO (20:59)
[2022-12-29] MEDS: INSULIN GLARGINE (*BKC) 100 UNITS/ML 10 UNITS SUB-Q (21:00)
[2022-12-30] VITALS (35 sets, daily range): BP systolic 102–136; BP diastolic 68–87; PULSE 87–117; RESP 20–33; TEMP 35.9–36.9; O2SAT 92–100
[2022-12-30 04:32] LABS: Anion Gap 6 mmol/L (8-16); Blood Urea Nitrogen 87 mg/dL (9-20); Calcium 8.3 mg/dL (8.4-10.2); Carbon Dioxide 33 mmol/L (22-30); Chloride 98 mmol/L (98-107); Estimated CRCL calculation 27 ml/min; Estimated Glomerular Filt Rate 18; Glucose 119 mg/dL (65-110); Potassium 3.7 mmol/L (3.4-5.0); Sodium 137 mmol/L (137-145)
[2022-12-30] MEDS: GABAPENTIN 100 MG CAPSULE PO ×2 (05:58→21:45)
[2022-12-30] MEDS: hydrALAZINE HCL 50 MG TABLET 100 MG PO ×2 (05:58→21:45)
[2022-12-30] MEDS: LEVOTHYROXINE SODIUM 100 MCG TABLET PO (05:58)
[2022-12-30 08:10] LABS: INR 1.4; Prothrombin Time 17.8 Seconds (11.1-14.7)
[2022-12-30 08:16] LABS: Glucose Point of Care 104 mg/dl (65-105)
[2022-12-30] MEDS: busPIRone HCL 10 MG TABLET PO ×2 (08:21→21:42)
[2022-12-30] MEDS: BUMETANIDE INJ 2.5 MG/10 ML VIAL 2 MG IV PUSH ×2 (08:21→21:48)
[2022-12-30] MEDS: PYRIDOXINE HCL 50 MG TABLET PO (08:22)
[2022-12-30] MEDS: ISOSORBIDE MONONITRATE 30 MG TAB.ER.24H PO (08:22)
[2022-12-30] MEDS: busPIRone HCL 5 MG TABLET PO ×2 (08:22→21:41)
[2022-12-30] MEDS: PANTOPRAZOLE SODIUM IV 40 MG VIAL IV PUSH ×2 (08:22→21:46)
[2022-12-30] MEDS: ASCORBIC ACID 500 MG TABLET PO (08:22)
[2022-12-30] MEDS: FLUTICASONE PROPIONATE 0.05% NA SPR 16 GM BTL (*BKC) 1 SPRAY NASAL ×2 (08:22→21:51)
[2022-12-30] MEDS: FAMOTIDINE 20 MG TABLET PO ×2 (08:22→21:44)
[2022-12-30] MEDS: metOLazone 5 MG TABLET 10 MG PO ×2 (08:22→21:42)
[2022-12-30] MEDS: BACITRACIN OINTMENT 15 GM TUBE 1 APPLIC TOPICAL ×2 (08:23→21:51)
[2022-12-30] MEDS: TOLNAFTATE 1% POWDER 45 GM BTL 1 APPLIC TOPICAL ×2 (08:23→22:04)
[2022-12-30] MEDS: METOPROLOL TARTRATE 50 MG TAB 100 MG PO ×2 (08:23→21:43)
[2022-12-30] MEDS: ASPIRIN 81 MG ENTERIC TABLET PO (08:25)
[2022-12-30] MEDS: polyethylene glycoL 3350 17 GM POWD.PACK PO (08:25)
[2022-12-30 09:25] LABS: Hepatitis B Surface Antigen Negative (Negative)
[2022-12-30 09:40] LABS: Hepatitis B Surface Anti Res Negative
[2022-12-30] MEDS: UMECLIDINIUM/VILANTEROL 62.5-25 MCG ELLIPTA 1 PUFF INHALATION (09:47)
--- NOTE | 2022-12-30 10:37 | PM.CNGS ---
Assessment and Plan Assessment and plan (1) Acute renal failure superimposed on chronic kidney disease: Code(s): N17.9 - Acute kidney failure, unspecified; N18.9 - Chronic kidney disease, unspecified Status: Acute Assessment and Plan: will setup for tunneled HD catheter in OR given need for emergent HD (2) CHF (congestive heart failure): Qualifiers: Heart failure chronicity: acute Heart failure type: diastolic Qualified Code(s): I50.31 - Acute diastolic (congestive) heart failure Code(s): I50.9 - Heart failure, unspecified Status: Acute Assessment and Plan: contributing factor to edema, cont med mgmt (3) Respiratory failure with hypoxia: Code(s): J96.91 - Respiratory failure, unspecified with hypoxia Status: Acute Assessment and Plan: secondary largely to fluid overload, needs emergent HD, cont resp support (4) Diabetes: Code(s): E11.9 - Type 2 diabetes mellitus without complications Status: Acute Assessment and Plan: cont med mgmt History of Present Illness Consult details Consult date: 12/30/22 Reason for consult: other (Renal failure) Requesting physician: Kelin Caldwell MD Narrative: The patient is a 57-year-old male with multiple medical issues presenting to the hospital with CHF exacerbation, acute on chronic renal failure. Of note, the patient is on CPAP and somewhat confused so all history is obtained via chart. The patient chronic renal failure and discussion per nephrology has been headed towards hemodialysis. Given his acute worsening, the decision has been made for hemodialysis at this time. The patient denies any previous central venous catheterization. Review of Systems Review of Systems: ROS unobtainable: Yes unobtainable due to medical condition and unobtainable due to mental status [facility] Past Medical History Medical History Acute renal failure superimposed on chronic kidney disease Anxiety Cerebrovascular accident Chronic anemia Chronic anticoagulation Chronic kidney disease, stage IV (severe) Chronic obstructive pulmonary disease Chronic respiratory failure with hypoxia, on home oxygen therapy Combined systolic and diastolic congestive heart failure Coronary artery disease Depression Gastroesophageal reflux disease Hyperlipidemia Hypertension Hypothyroidism Insulin dependent type 2 diabetes mellitus Paroxysmal atrial fibrillation Peripheral neuropathy Peripheral vascular disease Spinal stenosis Surgical History Surgical History History of cardiac catheterization History of four vessel coronary artery bypass graft History of hernia repair History of right below knee amputation Family History Family History Mother Diabetes mellitus Hypertension Heart disease Father Crohn disease Cancer Social History Social History Social History: Surrogate medical decision maker: Wilfredo Bose Sr. (father). Code status: Do not resuscitate. Smoking packs per day: 1 Smoking cigarettes per day: 20.0 Years smoked: 4 Smoking pack-years: 4.00 Smoking status: Former smoker Alcohol intake: never Substance use: current Substance use type: marijuana Last use: 09/25/2022 Lack of Transportation: No Lack of Food: Never True Current Housing: I Have Housing Concerned About Future Housing: No Difficulty Paying Gas/Electric Bills: No Difficulty Paying for Meds: No Currently Unemployed: No Education: High School Diploma/GED Difficulty w/ Childcare or Family Care: No Living arrangements: assisted living Additional living arrangements comments: [facility]. Spiritual care concerns: No Meds Home Medications and Allergies Home Medications Medi
[2022-12-30 11:49] LABS: Glucose Point of Care 86 mg/dl (65-105)
--- NOTE | 2022-12-30 12:14 | PM.IMPN ---
Progress Note: A&P Assessment and Plan (1) CHF (congestive heart failure): Qualifiers: Heart failure chronicity: acute Heart failure type: diastolic Qualified Code(s): I50.31 - Acute diastolic (congestive) heart failure Code(s): I50.9 - Heart failure, unspecified Status: Acute Assessment and Plan: Continue beta-alexandra. Patient switched to Bumex and metolazone But not responding and has minimal urine output. patient will likely need dialysis. surgery consulted for tunneled catheter placement for dialysis (2) Respiratory failure with hypoxia: Code(s): J96.91 - Respiratory failure, unspecified with hypoxia Status: Acute Assessment and Plan: Appreciate pulmonary input. pt is on oxygen and BIPAP at night currently Discussed with Pulmonary he will need sleep study as an outpatient (3) Acute renal failure superimposed on chronic kidney disease: Code(s): N17.9 - Acute kidney failure, unspecified; N18.9 - Chronic kidney disease, unspecified Status: Acute Assessment and Plan: Creatinine worse. patient will need short-term dialysis. Surgery consulted for tunneled catheter placement. (4) HTN (hypertension): Code(s): I10 - Essential (primary) hypertension Status: Acute Assessment and Plan: Stable (5) Anemia, chronic disease: Code(s): D63.8 - Anemia in other chronic diseases classified elsewhere Status: Acute Assessment and Plan: Stable, follow-up (6) Diabetes: Code(s): E11.9 - Type 2 diabetes mellitus without complications Status: Acute Assessment and Plan: Blood sugars reviewed and adequately controlled (7) Paroxysmal atrial fibrillation: Code(s): I48.0 - Paroxysmal atrial fibrillation Status: Chronic Assessment and Plan: Sinus rhythm. On apixaban Subjective Date/time seen: 12/30/22 12:14 Interval history: still short of breath. Not much change since yesterday Review of Systems Review of Systems: All systems reviewed & are unremarkable except as noted in HPI and below Exam Narrative: General obese,alert mildly dyspneic not in acute distress Chest with coarse breath sounds mildy tachypneic, conversational dyspnea Heart rate regular with no audible murmur Extremities no left foot edema, right with BKA and nonpitting edema of stump Abdomen protuberant but soft nontender with good bowel sounds no palpable masses Musculoskeletal right BKA as noted Objective Data Vital Signs Vital Signs: Vital Signs - 24 hr 12/29/22 14:57 12/29/22 16:00 12/29/22 14:00 Temperature 98.6 F Pulse Rate 116 H 101 H Respiratory Rate 27 H Blood Pressure 134/81 Pulse Oximetry 95 100 Oxygen Delivery Fraction of Inspired Oxygen 12/29/22 16:00 12/29/22 16:45 12/29/22 16:59 Temperature Pulse Rate 107 H 111 H Respiratory Rate 28 H 28 H Blood Pressure Pulse Oximetry 99 Oxygen Delivery BiPAP Fraction of Inspired Oxygen 35 12/29/22 18:00 12/29/22 16:00 12/29/22 18:00 Temperature Pulse Rate 118 H 116 H 118 H Respiratory Rate 32 H Blood Pressure Pulse Oximetry 95 Oxygen Delivery BiPAP Fraction of Inspired Oxygen 12/29/22 20:00 12/29/22 20:58 12/29/22 21:31 Temperature 97.0 F L Pulse Rate 118 H 119 H 112 H Respiratory Rate 22 H 30 H Blood Pressure 138/86 Pulse Oximetry 97 96 Oxygen Delivery BiPAP Fraction of Inspired Oxygen 12/30/22 00:00 12/30/22 02:22 12/29/22 20:00 Temperature 97.7 F Pulse Rate 115 H 105 H Respiratory Rate 25 H 28 H Blood Pressure 127/75 Pulse Oximetry 94 96 Oxygen Delivery BiPAP BiPAP Fraction of Inspired Oxygen 30 12/30/22 00:00 12/29/22 20:00 12/30/22 00:00 Temperature Pulse Rate 118 H 108 H Respiratory Rate Blood Pressure Pulse Oximetry Oxygen Delivery BiPAP Fraction of Inspired Oxygen 30 12/29/22 22:00 12/30/22 02:00 12/30/22
--- NOTE | 2022-12-30 14:13 | WPDANESEPPF ---
Anes - Initial Pre Proc Eval Procedure: Operation Date: 12/30/22 14:00 Proposed Procedures p Insertion Dialysis Catheter - Kacey Griffin MD Date/Time: 12/30/22 14:13 Pre Op Diagnosis: CHF Patient Data Age: 57 Gender: M Height: 1.78 m Weight: 110 kg Last Vital Signs Temp 36.2 C L 12/30/22 11:55 Pulse 116 H 12/30/22 11:55 Resp 26 H 12/30/22 11:55 BP 116/68 12/30/22 11:55 Pulse Ox 98 12/30/22 11:55 O2 Del Method BiPAP 12/30/22 09:47 O2 Flow Rate 3 12/28/22 16:03 FiO2 30 12/30/22 08:00 Allergies Allergy/AdvReac Type Severity Reaction Status Date / Time No Known Allergies Allergy Verified 12/15/22 08:36 Home Medications Medication Instructions Recorded Confirmed Type Saccharomyces boulardii 250 mg 250 mg PO DAILY 11/22/22 12/15/22 History capsule (Florastor) amitriptyline 50 mg tablet 50 mg PO QHS 11/22/22 12/15/22 History apixaban 5 mg tablet (Eliquis) 5 mg PO BID 11/22/22 12/15/22 History aspirin 81 mg tablet,delayed 81 mg PO DAILY 11/22/22 12/15/22 History release (Adult Low Dose Aspirin) atorvastatin 40 mg tablet (Lipitor) 40 mg PO QHS 11/22/22 12/15/22 History benzonatate 100 mg capsule 100 mg PO TID PRN Cough 11/22/22 12/15/22 History buspirone 15 mg tablet 15 mg PO TID 11/22/22 12/15/22 History famotidine 20 mg tablet 20 mg PO Q12H 11/22/22 12/15/22 History ferrous sulfate 325 mg (65 mg 325 mg PO BID 11/22/22 12/15/22 History iron) tablet,delayed release fluticasone propionate 110 1 puff inhalation Q12H 11/22/22 12/15/22 History mcg/actuation HFA aerosol inhaler furosemide 40 mg tablet 40 mg PO QAM 11/22/22 12/15/22 History gabapentin 100 mg capsule 100 mg PO Q8H 11/22/22 12/15/22 History guaifenesin 100 mg/5 mL oral liquid 200 mg PO Q6H PRN Cough 11/22/22 12/15/22 History hydralazine 25 mg tablet 75 mg PO Q8H 11/22/22 12/15/22 History ipratropium 0.5 mg-albuterol 3 mg 3 ml inhalation Q6H PRN Shortness 11/22/22 12/15/22 History (2.5 mg base)/3 mL nebulization Of Breath soln isosorbide dinitrate 30 mg tablet 30 mg PO DAILY 11/22/22 12/15/22 History losartan 50 mg tablet 50 mg PO DAILY 11/22/22 12/15/22 History metoclopramide HCl 5 mg tablet 5 mg PO AC 11/22/22 12/15/22 History metolazone 5 mg tablet 5 mg PO DAILY 11/22/22 12/15/22 History metoprolol tartrate 50 mg tablet 50 mg PO BID 11/22/22 12/15/22 History pyridoxine (vitamin B6) 50 mg 50 mg PO DAILY 11/22/22 12/15/22 History tablet sennosides 8.6 mg-docusate sodium 1 tab-cap PO BID 11/22/22 12/15/22 History 50 mg capsule (Senna Plus) tiotropium bromide 18 mcg capsule 1 cap inhalation DAILY 11/22/22 12/15/22 History with inhalation device (Spiriva with HandiHaler) trazodone 100 mg tablet 100 mg PO QHS 11/22/22 12/15/22 History umeclidinium 62.5 mcg-vilanterol 1 inh inhalation DAILY 11/22/22 12/15/22 History 25 mcg/actuation powdr for inhalation (Anoro Ellipta) ascorbic acid (vitamin C) 500 mg 500 mg PO DAILY #30 tabs 11/29/22 12/15/22 Rx tablet (Vitamin C) fluticasone propionate 50 1 spray intranasal Q12HR #16 grams 11/29/22 12/15/22 Rx mcg/actuation nasal spray,suspension foam bandage 4 X 4 (Mepilex) #5 ea 11/29/22 12/15/22 Rx levothyroxine 100 mcg tablet 100 mcg PO DAILY@0630 #30 tabs 11/29/22 12/15/22 Rx (Synthroid) tramadol 50 mg tablet 50 mg PO Q6H PRN Pain #5 tabs 11/29/22 12/15/22 Rx clopidogrel 75 mg tablet 75 mg PO DAILY 12/15/22 12/15/22 History dulaglutide 0.75 mg/0.5 mL 0.75 mg subcut WEEKLY 12/15/22 12/15/22 History subcutaneous pen injector (Trulicity) insulin glargine 100 unit/mL 10 unit subcut HS 12/15/22 12/15/22 History subcutaneous solution (Lantus U-100 Insulin) insulin lispro 100 unit/mL 10 unit subcut AC 12/15/22 12/15/22 History subcutaneous solution (Admelog U-100 Insulin lispro) Laboratory Tests 12/29/22 12/29/22 12/30/22 16:14 20:05 03:07 PT INR Sodium 137 mmol/L (137-1
--- NOTE | 2022-12-30 14:24 | WPDHPUPDATE1 ---
History and Physical Update Update Date/Time: 12/30/22 14:24 History and Physical has been reviewed, including an updated exam of the patient. There are NO changes in the patient's condition. Risks, benefits, and alternatives have been discussed and questions answered. Patient agrees to proceed with procedure.
--- NOTE | 2022-12-30 14:33 | PM.PNCARD ---
Progress Note: A&P Assessment and Plan (1) CHF (congestive heart failure): Qualifiers: Heart failure chronicity: acute Heart failure type: diastolic Qualified Code(s): I50.31 - Acute diastolic (congestive) heart failure Code(s): I50.9 - Heart failure, unspecified Status: Acute (2) Paroxysmal atrial fibrillation: Code(s): I48.0 - Paroxysmal atrial fibrillation Status: Chronic Plan Patient with chronic AF with heart failure with preserved ejection fraction. Principal problem now appears to be difficulty with achieving diuresis because of end-stage renal disease. Plans are for dialysis access to be placed this afternoon and hopefully hemodialysis shortly after that. This will hopefully improve his dyspnea with a state of better volume. Chepe Haines MD [facility] Subjective Date/time seen: Date of service: 12/30/22 14:33 Interval history: Reason for visit: Decompensated heart failure, atrial flutter HPI: Patient is a 57-year-old male who has a history of coronary disease.? Details are not known.? He follows with [facility].? He has had progressive lower extremity and scrotal edema as well as worsening shortness of breath over the past several months.? Symptoms worsened to the point that his testicles and foreskin were swollen and painful and decided to come to the hospital for further evaluation.? He was started on IV diuretics and was found to be in volume overload and is already feeling a little bit better with less swelling and less shortness of breath.? He does describe some orthopnea.? No chest pain.? No syncope, presyncope, paroxysmal nocturnal dyspnea.? Does have occasional palpitations.? He was recently admitted to this hospital for treatment of cellulitis. 12/16: Continues to complain of shortness of breath today.? Does not think his breathing has improved any since yesterday.? Has shortness of breath with minimal exertion.? No chest pain, palpitations. 12/17: Feeling better. No new complaints this morning. e 12/18: Diuresing well. No shortness of breath. Lower extremity edema significantly improved. Per discussion with RN, cannot wean off oxygen. Patient was not on home oxygen. Desats quickly without supplemental oxygen. 12/19/2022: Complaining of pain in his neck, back, and buttocks from lying in bed for several days. He continues to become short of breath with minimal activity such as moving around in bed. Unable to wean O2. 12/20/2022: He is feeling better today. Breathing is better. He denies any chest pain. His neck and back pain have resolved. 12/21/2022: Patient sleeping, somewhat lethargic but arousable states his breathing was a little better, denied pain. Patient is status post right thoracentesis with 1 L fluid removal earlier today. Decreasing O2 requirement. Patient remains in atrial flutter with controlled rate variable AV block on telemetry. Date of service 12/22/2022: Patient feels much better much less short of breath. Denies chest pain or palpitations. Sleeping better. No other complaints. Afebrile. Remains in atrial flutter variable AV block. Labs not reported yet this morning. Date of service 12/27/2022: Has increased shortness of breath this evening after receiving blood transfusion. No other complaints. Date of service 12/30/2022: Patient having worsening dyspnea last night and again this morning. Plans are in place for this afternoon to place a dialysis catheter and [facility] hope what is hopefully temporary hemodialysis later today. Patient is having significant shortness of breath with dyspnea with minimal conversation. Exam Narrative: Much more alert, awake, no apparent distress, appears stated age O2 via nasal cannula pleasant and cooperative Const: General: uncomfortable Other: Patient with shortness of breath at rest and with minimal conversation HENMT: Face/Nose/Sinus: Normal nares present Mouth: Yes moist mucous m
[2022-12-30] MEDS: SODIUM CHLORIDE 0.9% IV 500 ML 30 ML IV CONT (14:40)
[2022-12-30 15:00] LABS: Glucose Point of Care 74 mg/dl (65-105)
--- NOTE | 2022-12-30 15:01 | SUR.PREOP ---
1455-DR. WEBB REQUESTS NO ANTIBIOTIC. 1500-DR. EVANS AWARE OF POC GLUCOSE OF 74.
[2022-12-30] MEDS: LIDO 2%/EPINEPHRINE 1:100,000 50 ML VIAL 10 ML INFILTRATE (15:31)
[2022-12-30] MEDS: HEPARIN SODIUM 5,000 UNITS/ML VIAL 5000 UNITS IRRIGATION (15:33)
[2022-12-30] MEDS: HEPARIN SODIUM, PORCINE 10,000 UNITS/10 ML VIAL 10000 UNITS IRRIGATION (15:35)
--- NOTE | 2022-12-30 15:49 | W.PM.PROC2 ---
Procedure Note - Detailed Date of Procedure 12/30/22 Pre-op Diagnosis renal failure Post-op Diagnosis Same Procedure Performed placement of 28 cm tunneled hemodialysis catheter in right internal jugular vein under both ultrasound and fluroscopic guidance Surgeon Kacey Griffin MD Anesthesia MAC and Local Indications 57 y/o M currently in acute CHF exacerbation c worsening renal failure requiring emergent hemodialysis Findings 1st stick RIJ Description of Procedure Patient was taken to the operating room and placed in the supine position. After adequate induction of general anesthesia, the patient was prepped and draped in normal sterile fashion. A time-out was then done to verify the patient's identity as well as the procedure being performed. I began by using the SonoSite and locating the right internal jugular vein. Once this was done, I localized the overlying skin. I then made a small incision in the skin. I then gained access into the right internal jugular vein with an 18 gauge needle. At this point, I threaded the guidewire into the right internal jugular vein. Placement of the guidewire was confirmed by both ultrasound and fluoroscopic guidance. I then went ahead and measured the 28 cm tunneled dialysis catheter to our stick site in the right neck. I then localized the tract going from the right chest to the right neck. I then made a small incision in the right chest and tunneled the catheter to the right neck. I then serially dilated the right internal jugular vein under fluoroscopic guidance. Once adequately dilated, I placed the dilating sheath over the guidewire into the right internal jugular vein under fluoroscopic visualization. Once this was noted to be in good position, I removed both the guidewire and dilator, now just leaving the sheath in the vein. I then went ahead and fed the previously tunneled catheter into the sheath. Once the catheter was fed and positioned correctly, I went ahead and peeled the sheath away. Final fluoroscopic view showed the catheter in good position from its insertion point in the right chest to its termination in the atrial caval junction. It was noted there was no kinking of the catheter. I was able to easily draw and flush from both ports of the catheter. I placed 2.2 and 2.3 cc of final heparin flush into each port as marked. The catheter was then sutured into place and the incision in the neck was closed with 4 O Monocryl subcuticular suture. The patient tolerated the procedure well and will be transferred to the PACU in critical condition. Sterile dressing was placed on the catheter. Portable chest x-ray will be done in the PACU. Implants 28 cm tunneled hemodialysis catheter Estimated Blood Loss 20 Drains No Packing No Pathology None sent Complications No immediate complications Disposition PACU [facility] Billing Surgery - Charge Forward: Surgery Billing
[2022-12-30 16:10] LABS: Glucose Point of Care 85 mg/dl (65-105)
--- NOTE | 2022-12-30 16:34 | SUR.PHASEI ---
[address] johnson about chest xray, results given. ok to use dialysis catheter
--- NOTE | 2022-12-30 17:28 | P.PNNP_ITS ---
Progress Note: A&P Assessment and Plan (1) JOSE M (acute kidney injury): Code(s): N17.9 - Acute kidney failure, unspecified Status: Acute Assessment and Plan: * due to ongoing attempts at diuresis with high dose diuretics * noted more so in the last few days (correlating with escalating diuretic doses) * evaluation noted: * renal ultrasound normal * urine electrolytes look prerenal (inspite of clear evidence of volume overload) * urine eosinophils negative * serological testing negative to date (JEZ, ANCA, complements, SPEP, UPEP....etc * follow repeat labs and UOP (2) Chronic kidney disease, stage IV (severe): Code(s): N18.4 - Chronic kidney disease, stage 4 (severe) Status: Chronic Assessment and Plan: * creatinine has been fluctuating ~ 2.0 - 2.5mg/dl since earlier this year * suspected etiology of CKD due to hypertension, diabetes, and vascular disease * however, his CHF and need for diuresis as well as suspected TIERRA likely playing a role * may have to accept a higher creatinine due to necessity of diuretics to maintain his volume status * unfortunately, high dose diuretics not achieving much urine output * he may renal replacement therapy/dialysis/ultrafiltration * follow repeat labs and UOP (3) CHF (congestive heart failure): Qualifiers: Heart failure chronicity: acute Heart failure type: diastolic Qualified Code(s): I50.31 - Acute diastolic (congestive) heart failure Code(s): I50.9 - Heart failure, unspecified Status: Acute Assessment and Plan: * acute exacerbation * appears to be right sided heart failure + diastolic dysfunction * Echo results noted -- normal LVSF, EF 50-55%, mild TR, no other significant valve pathology * presented with dyspnea on exertion, abdominal distention and scrotal edema * reasonable diuresis since admission * diuretic held for a time due to rising creatinine * follow I/Os, daily weights, and respiratory status * s/p right thoracentesis (on 12/21/22) * back on IV diuretics * concerning that diuretic therapy alone may not optimize volume status -- may need more invasive (i.e. dialysis/ultrafiltration) interventions * Cardiology following (4) Respiratory failure with hypoxia: Code(s): J96.91 - Respiratory failure, unspecified with hypoxia Status: Acute Assessment and Plan: * multifactorial: * possible COPD * suspected TIERRA/OHS * fluid/volume overload * CHF * anemia * Pulmonary following with recommendations noted * follow respiratory status (5) Hypertension: Qualifiers: Hypertension type: primary hypertension Qualified Code(s): I10 - Essential (primary) hypertension Code(s): I10 - Essential (primary) hypertension Status: Chronic Assessment and Plan: * reasonable control at this time * follow trend of hemodynamics (6) Anemia: Code(s): D64.9 - Anemia, unspecified Status: Chronic Assessment and Plan: * partly due to CKD but worsened by acute illness * on Epogen * PRBC transfusion per protocol * follow trend of H/H (7) Diabetes mellitus with chronic kidney disease: Code(s): E11.22 - Type 2 diabetes mellitus with diabetic chronic kidney disease Status: Chronic Assessment and Plan: * follow accuchecks * glycemic control per hospitalists Will continue to follow. Subjective Date/time seen: 12/30/22 17:28 Interval history: Follow-up for chronic kid
--- NOTE | 2022-12-30 17:28 | PM.PNNEP ---
Progress Note: A&P Assessment and Plan (1) JOSE M (acute kidney injury): Code(s): N17.9 - Acute kidney failure, unspecified Status: Acute Assessment and Plan: due to ongoing attempts at diuresis with high dose diuretics noted more so in the last few days (correlating with escalating diuretic doses) evaluation noted: renal ultrasound normal urine electrolytes look prerenal (inspite of clear evidence of volume overload) urine eosinophils negative serological testing negative to date (JEZ, ANCA, complements, SPEP, UPEP....etc follow repeat labs and UOP (2) Chronic kidney disease, stage IV (severe): Code(s): N18.4 - Chronic kidney disease, stage 4 (severe) Status: Chronic Assessment and Plan: creatinine has been fluctuating ~ 2.0 - 2.5mg/dl since earlier this year suspected etiology of CKD due to hypertension, diabetes, and vascular disease however, his CHF and need for diuresis as well as suspected TIERRA likely playing a role may have to accept a higher creatinine due to necessity of diuretics to maintain his volume status unfortunately, high dose diuretics not achieving much urine output he may renal replacement therapy/dialysis/ultrafiltration follow repeat labs and UOP (3) CHF (congestive heart failure): Qualifiers: Heart failure chronicity: acute Heart failure type: diastolic Qualified Code(s): I50.31 - Acute diastolic (congestive) heart failure Code(s): I50.9 - Heart failure, unspecified Status: Acute Assessment and Plan: acute exacerbation appears to be right sided heart failure + diastolic dysfunction Echo results noted -- normal LVSF, EF 50-55%, mild TR, no other significant valve pathology presented with dyspnea on exertion, abdominal distention and scrotal edema reasonable diuresis since admission diuretic held for a time due to rising creatinine follow I/Os, daily weights, and respiratory status s/p right thoracentesis (on 12/21/22) back on IV diuretics concerning that diuretic therapy alone may not optimize volume status -- may need more invasive (i.e. dialysis/ultrafiltration) interventions Cardiology following (4) Respiratory failure with hypoxia: Code(s): J96.91 - Respiratory failure, unspecified with hypoxia Status: Acute Assessment and Plan: multifactorial: possible COPD suspected TIERRA/OHS fluid/volume overload CHF anemia Pulmonary following with recommendations noted follow respiratory status (5) Hypertension: Qualifiers: Hypertension type: primary hypertension Qualified Code(s): I10 - Essential (primary) hypertension Code(s): I10 - Essential (primary) hypertension Status: Chronic Assessment and Plan: reasonable control at this time follow trend of hemodynamics (6) Anemia: Code(s): D64.9 - Anemia, unspecified Status: Chronic Assessment and Plan: partly due to CKD but worsened by acute illness on Epogen PRBC transfusion per protocol follow trend of H/H (7) Diabetes mellitus with chronic kidney disease: Code(s): E11.22 - Type 2 diabetes mellitus with diabetic chronic kidney disease Status: Chronic Assessment and Plan: follow accuchecks glycemic control per hospitalists Will continue to follow. Subjective Date/time seen: 12/30/22 17:28 Interval history: Follow-up for chronic kidney disease and fluctuating creatinine as well as volume overload. Respiratory status/breathing seems to deteriorating despite current therapy/interventions; s/p HD catheter placement today and currently receiving DUF (dry ultrafiltration ) at this time (seen on DUF at ~ 5:20PM); still complaining of shortess of breath currently. Exam Narrative: General: middle aged male in moderated distress Heart: normal S1 and S2; no rub Lungs: coarse and decreased at bases; scattered crackles noted A
[2022-12-30] MEDS: EPOETIN ALFA-EPBX 10,000 UNITS/ML VIAL 10000 UNITS IV PUSH (18:55)
[2022-12-30 19:40] LABS: Glucose Point of Care 88 mg/dl (65-105)
[2022-12-30] MEDS: FERROUS SULFATE 324 MG TABLET PO (21:41)
[2022-12-30] MEDS: APIXABAN 5 MG TABLET PO (21:42)
[2022-12-30] MEDS: AMITRIPTYLINE HCL 25 MG TABLET 50 MG PO (21:43)
[2022-12-30] MEDS: ATORVASTATIN 40 MG TABLET PO (21:43)
[2022-12-30] MEDS: QUEtiapine FUMARATE 12.5 MG TABLET PO (21:45)
[2022-12-30] MEDS: traZODone HCL 50 MG TABLET 100 MG PO (21:46)
[2022-12-30] MEDS: INSULIN GLARGINE (*BKC) 100 UNITS/ML 10 UNITS SUB-Q (22:03)
[2022-12-31] VITALS (33 sets, daily range): BP systolic 112–137; BP diastolic 62–82; PULSE 85–118; RESP 16–28; TEMP 35.8–36.8; O2SAT 97–100
[2022-12-31] MEDS: traMADol HCL (*CRX) 50 MG TABLET PO ×3 (03:32→20:00)
[2022-12-31] MEDS: LEVOTHYROXINE SODIUM 100 MCG TABLET PO (05:57)
[2022-12-31] MEDS: GABAPENTIN 100 MG CAPSULE PO ×3 (05:57→22:15)
[2022-12-31] MEDS: hydrALAZINE HCL 50 MG TABLET 100 MG PO ×3 (05:57→22:15)
[2022-12-31 06:39] LABS: Hepatitis B Core IgM Result Negative (Negative)
[2022-12-31 08:00] LABS: Glucose Point of Care 103 mg/dl (65-105)
[2022-12-31] MEDS: SODIUM CHLORIDE 0.9% IV 1,000 ML 999 ML IV CONT (09:39)
[2022-12-31] MEDS: EPOETIN ALFA-EPBX 10,000 UNITS/ML VIAL 10000 UNITS IV PUSH (09:39)
--- NOTE | 2022-12-31 11:10 | PM.IMPN ---
Progress Note: A&P Assessment and Plan (1) CHF (congestive heart failure): Qualifiers: Heart failure chronicity: acute Heart failure type: diastolic Qualified Code(s): I50.31 - Acute diastolic (congestive) heart failure Code(s): I50.9 - Heart failure, unspecified Status: Acute Assessment and Plan: Continue beta-alexandra. Patient switched to Bumex and metolazone But not responding and has minimal urine output. patient started on dialysis (2) Respiratory failure with hypoxia: Code(s): J96.91 - Respiratory failure, unspecified with hypoxia Status: Acute Assessment and Plan: Appreciate pulmonary input. pt is on oxygen and BIPAP at night currently Discussed with Pulmonary he will need sleep study as an outpatient (3) Acute renal failure superimposed on chronic kidney disease: Code(s): N17.9 - Acute kidney failure, unspecified; N18.9 - Chronic kidney disease, unspecified Status: Acute Assessment and Plan: Creatinine worse. patient started on short-term dialysis. tunnel catheter placed by surgery (4) HTN (hypertension): Code(s): I10 - Essential (primary) hypertension Status: Acute Assessment and Plan: Stable (5) Anemia, chronic disease: Code(s): D63.8 - Anemia in other chronic diseases classified elsewhere Status: Acute Assessment and Plan: Stable, follow-up (6) Diabetes: Code(s): E11.9 - Type 2 diabetes mellitus without complications Status: Acute Assessment and Plan: Blood sugars reviewed and adequately controlled (7) Paroxysmal atrial fibrillation: Code(s): I48.0 - Paroxysmal atrial fibrillation Status: Chronic Assessment and Plan: Sinus rhythm. On apixaban Subjective Date/time seen: 12/31/22 11:10 Interval history: patient seen during dialysis. States he is doing okay Review of Systems Review of Systems: All systems reviewed & are unremarkable except as noted in HPI and below Exam Narrative: General obese,alert mildly dyspneic not in acute distress Chest with coarse breath sounds mildy tachypneic, conversational dyspnea Heart rate regular with no audible murmur Extremities no left foot edema, right with BKA and nonpitting edema of stump Abdomen protuberant but soft nontender with good bowel sounds no palpable masses Musculoskeletal right BKA as noted Objective Data Vital Signs Vital Signs: Vital Signs - 24 hr 12/30/22 11:55 12/30/22 12:00 12/30/22 14:43 Temperature 97.1 F L 98.4 F Pulse Rate 116 H 117 H Respiratory Rate 26 H 28 H Blood Pressure 116/68 120/77 Pulse Oximetry 98 95 100 Oxygen Delivery Nasal Cannula Nasal Cannula Oxygen Flow Rate 4 4 Fraction of Inspired Oxygen 12/30/22 12:00 12/30/22 16:00 12/30/22 16:15 Temperature 97.2 F L Pulse Rate 116 H 111 H 113 H Respiratory Rate 26 H 26 H Blood Pressure 118/77 124/87 Pulse Oximetry 92 92 Oxygen Delivery BiPAP BiPAP Oxygen Flow Rate Fraction of Inspired Oxygen 30 30 12/30/22 16:30 12/30/22 17:03 12/30/22 17:05 Temperature 98.2 F Pulse Rate 114 H 113 H Respiratory Rate 24 H 20 Blood Pressure 124/84 112/69 Pulse Oximetry 93 Oxygen Delivery BiPAP Oxygen Flow Rate Fraction of Inspired Oxygen 30 30 12/30/22 17:06 12/30/22 17:20 12/30/22 17:40 Temperature Pulse Rate 113 H 114 H 113 H Respiratory Rate Blood Pressure 102/71 108/78 110/74 Pulse Oximetry Oxygen Delivery Oxygen Flow Rate Fraction of Inspired Oxygen 12/30/22 18:00 12/30/22 18:20 12/30/22 18:40 Temperature Pulse Rate 113 H 115 H 113 H Respiratory Rate Blood Pressure 121/79 120/78 109/74 Pulse Oximetry Oxygen Delivery Oxygen Flow Rate Fraction of Inspired Oxygen 12/30/22 18:00 12/30/22 19:00 12/30/22 19:08 Temperature Pulse Rate 114 H 113 H 113 H Respiratory Rate Blood Pressure 134/78 134/84 Pulse Oxime
--- NOTE | 2022-12-31 11:19 | PM.PNCARD ---
Progress Note: A&P Assessment and Plan (1) CHF (congestive heart failure): Qualifiers: Heart failure chronicity: acute Heart failure type: diastolic Qualified Code(s): I50.31 - Acute diastolic (congestive) heart failure Code(s): I50.9 - Heart failure, unspecified Status: Acute Assessment and Plan: Patient with chronic AF with heart failure with preserved ejection fraction.? Principal problem now appears to be difficulty with achieving diuresis because of end-stage renal disease.? Started dialysis 12/30/2022 and seems to be feeling better. ? This will hopefully improve his dyspnea with a state of better volume. (2) Paroxysmal atrial fibrillation: Code(s): I48.0 - Paroxysmal atrial fibrillation Status: Chronic Assessment and Plan: Cont Eliquis and metoprolol. Subjective Date/time seen: 12/31/22 11:19 Interval history: Reason for visit: Decompensated heart failure, atrial flutter HPI: Patient is a 57-year-old male who has a history of coronary disease.? Details are not known.? He follows with [facility].? He has had progressive lower extremity and scrotal edema as well as worsening shortness of breath over the past several months.? Symptoms worsened to the point that his testicles and foreskin were swollen and painful and decided to come to the hospital for further evaluation.? He was started on IV diuretics and was found to be in volume overload and is already feeling a little bit better with less swelling and less shortness of breath.? He does describe some orthopnea.? No chest pain.? No syncope, presyncope, paroxysmal nocturnal dyspnea.? Does have occasional palpitations.? He was recently admitted to this hospital for treatment of cellulitis. 12/16: Continues to complain of shortness of breath today.? Does not think his breathing has improved any since yesterday.? Has shortness of breath with minimal exertion.? No chest pain, palpitations. 12/17: Feeling better. No new complaints this morning. e 12/18: Diuresing well. No shortness of breath. Lower extremity edema significantly improved. Per discussion with RN, cannot wean off oxygen. Patient was not on home oxygen. Desats quickly without supplemental oxygen. 12/19/2022: Complaining of pain in his neck, back, and buttocks from lying in bed for several days. He continues to become short of breath with minimal activity such as moving around in bed. Unable to wean O2. 12/20/2022: He is feeling better today. Breathing is better. He denies any chest pain. His neck and back pain have resolved. 12/21/2022: Patient sleeping, somewhat lethargic but arousable states his breathing was a little better, denied pain. Patient is status post right thoracentesis with 1 L fluid removal earlier today. Decreasing O2 requirement. Patient remains in atrial flutter with controlled rate variable AV block on telemetry. Date of service 12/22/2022: Patient feels much better much less short of breath. Denies chest pain or palpitations. Sleeping better. No other complaints. Afebrile. Remains in atrial flutter variable AV block. Labs not reported yet this morning. Date of service 12/27/2022: Has increased shortness of breath this evening after receiving blood transfusion. No other complaints. Date of service 12/30/2022: Patient having worsening dyspnea last night and again this morning. Plans are in place for this afternoon to place a dialysis catheter and [place] hope what is hopefully temporary hemodialysis later today. Patient is having significant shortness of breath with dyspnea with minimal conversation. Date of service 12/31/2022: Had 3 L removed with dialysis yesterday and another 3 L today. Pt thinks it is helping. On BiPAP over night and nasal cannula during the day. Chest x-ray from yesterday reviewed, CHF which was worsening, particularly on the right side. Review of Systems Review of Systems: Still SOB but
[2022-12-31] MEDS: FLUTICASONE PROPIONATE 0.05% NA SPR 16 GM BTL (*BKC) 1 SPRAY NASAL ×2 (12:50→20:04)
[2022-12-31] MEDS: TOLNAFTATE 1% POWDER 45 GM BTL 1 APPLIC TOPICAL ×2 (12:51→20:08)
[2022-12-31] MEDS: busPIRone HCL 10 MG TABLET PO ×2 (12:52→18:20)
[2022-12-31] MEDS: ASCORBIC ACID 500 MG TABLET PO (12:52)
[2022-12-31] MEDS: FERROUS SULFATE 324 MG TABLET PO ×2 (12:52→18:27)
[2022-12-31] MEDS: METOPROLOL TARTRATE 50 MG TAB 100 MG PO ×2 (12:52→20:07)
[2022-12-31] MEDS: BUMETANIDE INJ 2.5 MG/10 ML VIAL 2 MG IV PUSH ×2 (12:53→18:20)
[2022-12-31] MEDS: metOLazone 5 MG TABLET 10 MG PO ×2 (12:53→18:26)
[2022-12-31] MEDS: busPIRone HCL 5 MG TABLET PO ×2 (12:53→18:25)
[2022-12-31] MEDS: ISOSORBIDE MONONITRATE 30 MG TAB.ER.24H PO (12:53)
[2022-12-31] MEDS: APIXABAN 5 MG TABLET PO ×2 (12:53→20:04)
[2022-12-31] MEDS: FAMOTIDINE 20 MG TABLET PO ×2 (12:53→20:03)
[2022-12-31] MEDS: PYRIDOXINE HCL 50 MG TABLET PO (12:53)
[2022-12-31] MEDS: PANTOPRAZOLE SODIUM IV 40 MG VIAL IV PUSH ×2 (12:53→20:05)
[2022-12-31] MEDS: BACITRACIN OINTMENT 15 GM TUBE 1 APPLIC TOPICAL ×2 (12:54→20:02)
[2022-12-31] MEDS: ASPIRIN 81 MG ENTERIC TABLET PO (12:56)
[2022-12-31 12:57] LABS: Basophils Percent Auto 0.3 % (0.2-1.2); Eosinophils Absolute Auto 0.1 K/mm3 (0-0.3); Eosinophils Percent Auto 0.7 % (0-4.4); Hematocrit 26.6 % (42.0-52.0); Immature Granulocyte Absolute 0.09 K/mm3 (0.00-0.031); Lymphocytes Absolute Auto 0.44 K/mm3 (0.9-3.2); Lymphocytes Percent Auto 5.1 % (18.3-44.2); Mean Corpuscular HGB Conc 30.1 g/dl (32-36); Mean Corpuscular Volume 83.1 fl (80-100); Mean Platelet Volume 9.9 fl (7.4-10.4); Monocytes Absolute Auto 0.4 K/mm3 (0.1-0.6); Monocytes Percent Auto 4.6 % (2.6-8.5); Neutrophils Absolute Auto 7.7 K/mm3 (1.3-6.7); Neutrophils Percent Auto 88.3 % (45.5-73.1); Platelet Count Result 254 k/mm3 (150-375); Red Cell Distribution Width 18.2 % (11.5-14.5); White Blood Count 8.7 K/mm3 (4.5-10.0)
[2022-12-31 13:07] LABS: Albumin Level 3.5 g/dL (3.5-5.1); Anion Gap 6 mmol/L (8-16); Blood Urea Nitrogen 43 mg/dL (9-20); Calcium 8.1 mg/dL (8.4-10.2); Carbon Dioxide 34 mmol/L (22-30); Chloride 100 mmol/L (98-107); Estimated CRCL calculation 43 ml/min; Estimated Glomerular Filt Rate 33; Glucose 99 mg/dL (65-110); Phosphorus 2.9 mg/dL (2.5-4.5); Potassium 3.5 mmol/L (3.4-5.0); Sodium 140 mmol/L (137-145)
--- NOTE | 2022-12-31 15:07 | P.PNNP_ITS ---
Progress Note: A&P Assessment and Plan (1) JOSE M (acute kidney injury): Code(s): N17.9 - Acute kidney failure, unspecified Status: Acute Assessment and Plan: * due to ongoing attempts at diuresis with high dose diuretics * noted more so in the last few days (correlating with escalating diuretic doses) * evaluation noted: * renal ultrasound normal * urine electrolytes look prerenal (inspite of clear evidence of volume overload) * urine eosinophils negative * serological testing negative to date (JEZ, ANCA, complements, SPEP, UPEP....etc * developed volume overload unresponsive to diuretics so now on dialysis. * follow repeat labs and UOP (2) Chronic kidney disease, stage IV (severe): Code(s): N18.4 - Chronic kidney disease, stage 4 (severe) Status: Chronic Assessment and Plan: * creatinine has been fluctuating ~ 2.0 - 2.5mg/dl since earlier this year * suspected etiology of CKD due to hypertension, diabetes, and vascular disease * however, his CHF and need for diuresis as well as suspected TIERRA likely playing a role * Now getting dialysis treatments. Will watch for recovery (3) CHF (congestive heart failure): Qualifiers: Heart failure chronicity: acute Heart failure type: diastolic Qualified Code(s): I50.31 - Acute diastolic (congestive) heart failure Code(s): I50.9 - Heart failure, unspecified Status: Acute Assessment and Plan: * acute exacerbation * appears to be right sided heart failure + diastolic dysfunction * Echo results noted -- normal LVSF, EF 50-55%, mild TR, no other significant valve pathology * presented with dyspnea on exertion, abdominal distention and scrotal edema * reasonable diuresis since admission * diuretic held for a time due to rising creatinine * follow I/Os, daily weights, and respiratory status * s/p right thoracentesis (on 12/21/22) * responding to ultrafiltration. * Cardiology following (4) Respiratory failure with hypoxia: Code(s): J96.91 - Respiratory failure, unspecified with hypoxia Status: Acute Assessment and Plan: * multifactorial: * possible COPD * suspected TIERRA/OHS * fluid/volume overload * CHF * anemia * Pulmonary following with recommendations noted * follow respiratory status * This has improved with volume removal (5) Hypertension: Qualifiers: Hypertension type: primary hypertension Qualified Code(s): I10 - Essential (primary) hypertension Code(s): I10 - Essential (primary) hypertension Status: Chronic Assessment and Plan: * systolic running from 120-140 * follow trend of hemodynamics (6) Anemia: Code(s): D64.9 - Anemia, unspecified Status: Chronic Assessment and Plan: * partly due to CKD but worsened by acute illness * on Epogen with dialysis * PRBC transfusion per protocol * follow trend of H/H (7) Diabetes mellitus with chronic kidney disease: Code(s): E11.22 - Type 2 diabetes mellitus with diabetic chronic kidney disease Status: Chronic Assessment and Plan: * follow accuchecks * glycemic control per hospitalists Subjective Date/time seen: 12/31/22 15:07 Interval history: patient is feeling better. Swelling is better and breathing is better. He is eating pretty well Exam Narrative: General: middle aged male in moderated distress Heart: normal S1 and S2; no rub or subcu nodules
--- NOTE | 2022-12-31 15:07 | PM.PNNEP ---
Progress Note: A&P Assessment and Plan (1) JOSE M (acute kidney injury): Code(s): N17.9 - Acute kidney failure, unspecified Status: Acute Assessment and Plan: due to ongoing attempts at diuresis with high dose diuretics noted more so in the last few days (correlating with escalating diuretic doses) evaluation noted: renal ultrasound normal urine electrolytes look prerenal (inspite of clear evidence of volume overload) urine eosinophils negative serological testing negative to date (JEZ, ANCA, complements, SPEP, UPEP....etc developed volume overload unresponsive to diuretics so now on dialysis. follow repeat labs and UOP (2) Chronic kidney disease, stage IV (severe): Code(s): N18.4 - Chronic kidney disease, stage 4 (severe) Status: Chronic Assessment and Plan: creatinine has been fluctuating ~ 2.0 - 2.5mg/dl since earlier this year suspected etiology of CKD due to hypertension, diabetes, and vascular disease however, his CHF and need for diuresis as well as suspected TIERRA likely playing a role Now getting dialysis treatments. Will watch for recovery (3) CHF (congestive heart failure): Qualifiers: Heart failure chronicity: acute Heart failure type: diastolic Qualified Code(s): I50.31 - Acute diastolic (congestive) heart failure Code(s): I50.9 - Heart failure, unspecified Status: Acute Assessment and Plan: acute exacerbation appears to be right sided heart failure + diastolic dysfunction Echo results noted -- normal LVSF, EF 50-55%, mild TR, no other significant valve pathology presented with dyspnea on exertion, abdominal distention and scrotal edema reasonable diuresis since admission diuretic held for a time due to rising creatinine follow I/Os, daily weights, and respiratory status s/p right thoracentesis (on 12/21/22) responding to ultrafiltration. Cardiology following (4) Respiratory failure with hypoxia: Code(s): J96.91 - Respiratory failure, unspecified with hypoxia Status: Acute Assessment and Plan: multifactorial: possible COPD suspected TIERRA/OHS fluid/volume overload CHF anemia Pulmonary following with recommendations noted follow respiratory status This has improved with volume removal (5) Hypertension: Qualifiers: Hypertension type: primary hypertension Qualified Code(s): I10 - Essential (primary) hypertension Code(s): I10 - Essential (primary) hypertension Status: Chronic Assessment and Plan: systolic running from 120-140 follow trend of hemodynamics (6) Anemia: Code(s): D64.9 - Anemia, unspecified Status: Chronic Assessment and Plan: partly due to CKD but worsened by acute illness on Epogen with dialysis PRBC transfusion per protocol follow trend of H/H (7) Diabetes mellitus with chronic kidney disease: Code(s): E11.22 - Type 2 diabetes mellitus with diabetic chronic kidney disease Status: Chronic Assessment and Plan: follow accuchecks glycemic control per hospitalists Subjective Date/time seen: 12/31/22 15:07 Interval history: patient is feeling better. Swelling is better and breathing is better. He is eating pretty well Exam Narrative: General: middle aged male in moderated distress Heart: normal S1 and S2; no rub or subcu nodules Lungs: coarse and decreased at bases; scattered crackles noted Abdomen: soft, nontender, nondistended, positive bowel sounds Extremities: no cyanosis or clubbing; 1+ edema s/p right BKA Skin: no rash Objective Data Vital Signs Vital Signs: Vital Signs - 24 hr 12/30/22 16:00 12/30/22 16:15 12/30/22 16:30 Temperature 97.2 F L Pulse Rate 111 H 113 H 114 H Respiratory Rate 26 H 26 H 24 H Blood Pressure 118/77 124/87 124/84 Pulse Oximetry 92 92 93 Oxygen Delivery BiPAP BiPAP BiPAP Oxygen Flow Rate Fra
[2022-12-31 15:14] LABS: Glucose Point of Care 104 mg/dl (65-105)
[2022-12-31 16:41] LABS: Glucose Point of Care 170 mg/dl (65-105)
[2022-12-31 16:42] LABS: IFOB Positive Control Positive; Immunochemical Fecal Occult Bl Positive (N)
--- NOTE | 2022-12-31 18:30 | WPDANESPN ---
Anes - Prog Note Post-Op Date/Time: 12/31/22 18:30 Cardiovascular status: normal Respiratory status: normal Airway patency: baseline Mental status: baseline Post-Op hydration status: normal Vital Signs: Last Vital Signs Temp 35.9 C L 12/31/22 16:41 Pulse 115 H 12/31/22 16:41 Resp 22 H 12/31/22 16:41 BP 118/75 12/31/22 16:41 Pulse Ox 100 12/31/22 16:41 O2 Del Method Nasal Cannula 12/31/22 16:00 O2 Flow Rate 5 12/31/22 16:00 FiO2 30 12/31/22 04:00 Pain Score (VAS): 0 I/O: Intake & Output 12/31/22 12/31/22 12/31/22 07:59 15:59 23:59 Intake Total 330 720 Output Total 650 3000 600 Balance -650 -7400 120 Laboratory Tests 12/31/22 12:52 12/31/22 12:52 12/30/22 12/30/22 12/31/22 07:53 19:36 07:52 WBC RBC Hgb Hct MCV MCH MCHC RDW Plt Count MPV Immature Gran % (Auto) Neut % (Auto) Lymph % (Auto) [place] % (Auto) Eos % (Auto) Baso % (Auto) Lymph # (Auto) [place] # (Auto) Eos # (Auto) Baso # (Auto) Abs Immat Gran (auto) Absolute Neuts (auto) Absolute Nucleated RBC Nucleated RBC % Sodium Potassium Chloride Carbon Dioxide Anion Gap BUN Creatinine Estim Creat Clear Calc Estimated GFR Glucose POC Capillary Glucose 88 103 Calcium Phosphorus Albumin Stl Occult Blood (IFOB) Hep B Core Total Ab Pending Hep B Core IgM Ab Negative 12/31/22 12/31/22 12/31/22 12:52 13:03 15:45 WBC 8.7 RBC 3.20 L Hgb 8.0 L Hct 26.6 L MCV 83.1 MCH 25.0 L MCHC 30.1 L RDW 18.2 H Plt Count 254 MPV 9.9 Immature Gran % (Auto) 1.0 H Neut % (Auto) 88.3 H Lymph % (Auto) 5.1 L [place] % (Auto) 4.6 Eos % (Auto) 0.7 Baso % (Auto) 0.3 Lymph # (Auto) 0.44 L [place] # (Auto) 0.4 Eos # (Auto) 0.1 Baso # (Auto) 0.0 Abs Immat Gran (auto) 0.09 H Absolute Neuts (auto) 7.7 H Absolute Nucleated RBC 0.0 Nucleated RBC % 0.0 Sodium 140 Potassium 3.5 Chloride 100 Carbon Dioxide 34 H Anion Gap 6 L BUN 43 H D Creatinine 2.10 H Estim Creat Clear Calc 43 Estimated GFR 33 L Glucose 99 POC Capillary Glucose 104 Calcium 8.1 L Phosphorus 2.9 Albumin 3.5 Stl Occult Blood (IFOB) Positive H Hep B Core Total Ab Hep B Core IgM Ab 12/31/22 16:35 WBC RBC Hgb Hct MCV MCH MCHC RDW Plt Count MPV Immature Gran % (Auto) Neut % (Auto) Lymph % (Auto) [place] % (Auto) Eos % (Auto) Baso % (Auto) Lymph # (Auto) [place] # (Auto) Eos # (Auto) Baso # (Auto) Abs Immat Gran (auto) Absolute Neuts (auto) Absolute Nucleated RBC Nucleated RBC % Sodium Potassium Chloride Carbon Dioxide Anion Gap BUN Creatinine Estim Creat Clear Calc Estimated GFR Glucose POC Capillary Glucose 170 H Calcium Phosphorus Albumin Stl Occult Blood (IFOB) Hep B Core Total Ab Hep B Core IgM Ab Post-procedural complaints: none Patient Feedback: Patient satisfied with anesthetic care.
[2022-12-31] MEDS: AMITRIPTYLINE HCL 25 MG TABLET 50 MG PO (20:03)
[2022-12-31] MEDS: ATORVASTATIN 40 MG TABLET PO (20:03)
[2022-12-31] MEDS: QUEtiapine FUMARATE 12.5 MG TABLET PO (20:08)
[2022-12-31] MEDS: traZODone HCL 50 MG TABLET 100 MG PO (20:08)
[2022-12-31 20:18] LABS: Glucose Point of Care 212 mg/dl (65-105)
[2022-12-31] MEDS: INSULIN GLARGINE (*BKC) 100 UNITS/ML 10 UNITS SUB-Q (20:31)
[2023-01-01] VITALS (20 sets, daily range): BP systolic 104–125; BP diastolic 71–78; PULSE 11–117; RESP 14–30; TEMP 36.2–36.7; O2SAT 92–99
[2023-01-01] MEDS: traMADol HCL (*CRX) 50 MG TABLET PO ×2 (02:11→09:36)
--- NOTE | 2023-01-01 02:40 | PC.NURSE ---
0240. Added a wound consult for 01/02/23 regarding what appears to be a wound around the tip of the patient's penis.
[2023-01-01] MEDS: LEVOTHYROXINE SODIUM 100 MCG TABLET PO (06:11)
[2023-01-01] MEDS: hydrALAZINE HCL 50 MG TABLET 100 MG PO ×3 (06:11→21:40)
[2023-01-01] MEDS: GABAPENTIN 100 MG CAPSULE PO ×3 (06:12→21:40)
--- NOTE | 2023-01-01 07:01 | PC.NURSE ---
01/01/23 at 0423, Attempted to contact hospitalist just to inform someone of the positive stool occult that was resulted out on 12/31/22 at 1545. I did not see any notes that it was seen by the doctors. Hgb was resulted at 8.0 on 12/31/22 at 1300.
[2023-01-01 07:59] LABS: Glucose Point of Care 184 mg/dl (65-105)
[2023-01-01] MEDS: busPIRone HCL 5 MG TABLET PO ×3 (09:37→16:39)
[2023-01-01] MEDS: ISOSORBIDE MONONITRATE 30 MG TAB.ER.24H PO (09:37)
[2023-01-01] MEDS: FAMOTIDINE 20 MG TABLET PO ×2 (09:37→21:38)
[2023-01-01] MEDS: APIXABAN 5 MG TABLET PO ×2 (09:37→21:37)
[2023-01-01] MEDS: PYRIDOXINE HCL 50 MG TABLET PO (09:37)
[2023-01-01] MEDS: METOPROLOL TARTRATE 50 MG TAB 100 MG PO ×2 (09:37→21:38)
[2023-01-01] MEDS: metOLazone 5 MG TABLET 10 MG PO ×2 (09:37→16:39)
[2023-01-01] MEDS: busPIRone HCL 10 MG TABLET PO ×3 (09:37→16:40)
[2023-01-01] MEDS: ASCORBIC ACID 500 MG TABLET PO (09:38)
[2023-01-01] MEDS: BACITRACIN OINTMENT 15 GM TUBE 1 APPLIC TOPICAL ×2 (09:38→21:38)
[2023-01-01] MEDS: BUMETANIDE INJ 2.5 MG/10 ML VIAL 2 MG IV PUSH ×2 (09:38→16:39)
[2023-01-01] MEDS: PANTOPRAZOLE SODIUM IV 40 MG VIAL IV PUSH ×2 (09:38→21:39)
[2023-01-01 09:53] LABS: Anion Gap 6 mmol/L (8-16); Blood Urea Nitrogen 56 mg/dL (9-20); Calcium 7.8 mg/dL (8.4-10.2); Carbon Dioxide 34 mmol/L (22-30); Chloride 97 mmol/L (98-107); Estimated CRCL calculation 33 ml/min; Estimated Glomerular Filt Rate 23; Glucose 172 mg/dL (65-110); Potassium 3.9 mmol/L (3.4-5.0); Sodium 137 mmol/L (137-145)
[2023-01-01] MEDS: IPRATROPIUM BR 0.02% INH SOLN 0.5 MG/2.5 ML VIAL INHALATION ×3 (10:08→19:35)
[2023-01-01] MEDS: LEVALBUTEROL NEB 1.25 MG/3 ML INHALATION ×3 (10:08→19:35)
[2023-01-01] MEDS: UMECLIDINIUM/VILANTEROL 62.5-25 MCG ELLIPTA 1 PUFF INHALATION (10:08)
--- NOTE | 2023-01-01 10:20 | P.PNNP_ITS ---
Progress Note: A&P Assessment and Plan (1) JOSE M (acute kidney injury): Code(s): N17.9 - Acute kidney failure, unspecified Status: Acute Assessment and Plan: * due to ongoing attempts at diuresis with high dose diuretics * noted more so in the last few days (correlating with escalating diuretic doses) * evaluation noted: * renal ultrasound normal * urine electrolytes look prerenal (inspite of clear evidence of volume overload) * urine eosinophils negative * serological testing negative to date (JEZ, ANCA, complements, SPEP, UPEP....etc * He had dialysis yesterday and 3L was removed. * He made another L in urine. * Due for dialysis tomorrow. (2) Chronic kidney disease, stage IV (severe): Code(s): N18.4 - Chronic kidney disease, stage 4 (severe) Status: Chronic Assessment and Plan: * creatinine has been fluctuating ~ 2.0 - 2.5mg/dl since earlier this year * suspected etiology of CKD due to hypertension, diabetes, and vascular disease * however, his CHF and need for diuresis as well as suspected TIERRA likely playing a role * Now getting dialysis treatments. Will watch for recovery (3) CHF (congestive heart failure): Qualifiers: Heart failure chronicity: acute Heart failure type: diastolic Qualified Code(s): I50.31 - Acute diastolic (congestive) heart failure Code(s): I50.9 - Heart failure, unspecified Status: Acute Assessment and Plan: * acute exacerbation * appears to be right sided heart failure + diastolic dysfunction * Echo results noted -- normal LVSF, EF 50-55%, mild TR, no other significant valve pathology * presented with dyspnea on exertion, abdominal distention and scrotal edema * Still making urine on a small amount of diuretics. * Will increase the diuretic dose to help with overall diuresis * as he feels better he will eat better and it will be harder to keep up. (4) Respiratory failure with hypoxia: Code(s): J96.91 - Respiratory failure, unspecified with hypoxia Status: Acute Assessment and Plan: * multifactorial: * possible COPD * suspected TIERRA/OHS * fluid/volume overload * CHF * anemia * Pulmonary following with recommendations noted * follow respiratory status * He is still on some oxygen. * Continue breathing treatments, diuretics, and will get another dialysis lois orrow. (5) Hypertension: Qualifiers: Hypertension type: primary hypertension Qualified Code(s): I10 - Essential (primary) hypertension Code(s): I10 - Essential (primary) hypertension Status: Chronic Assessment and Plan: * systolic running from 120-140 * follow trend of hemodynamics (6) Anemia: Code(s): D64.9 - Anemia, unspecified Status: Chronic Assessment and Plan: * partly due to CKD but worsened by acute illness * on Epogen with dialysis * PRBC transfusion per protocol * Hemoglobin up a little bit at 8. (7) Diabetes mellitus with chronic kidney disease: Code(s): E11.22 - Type 2 diabetes mellitus with diabetic chronic kidney disease Status: Chronic Assessment and Plan: * follow accuchecks * glycemic control per hospitalists (8) Cellulitis: Code(s): L03.90 - Cellulitis, unspecified Status: Acute Subjective Date/time seen: 01/01/23 10:20 Interval history: patient is resting comfortably in bed. He has a little bit of shortness of breath. His oxygenatio
--- NOTE | 2023-01-01 10:20 | PM.PNNEP ---
Progress Note: A&P Assessment and Plan (1) JOSE M (acute kidney injury): Code(s): N17.9 - Acute kidney failure, unspecified Status: Acute Assessment and Plan: due to ongoing attempts at diuresis with high dose diuretics noted more so in the last few days (correlating with escalating diuretic doses) evaluation noted: renal ultrasound normal urine electrolytes look prerenal (inspite of clear evidence of volume overload) urine eosinophils negative serological testing negative to date (JEZ, ANCA, complements, SPEP, UPEP....etc He had dialysis yesterday and 3L was removed. He made another L in urine. Due for dialysis tomorrow. (2) Chronic kidney disease, stage IV (severe): Code(s): N18.4 - Chronic kidney disease, stage 4 (severe) Status: Chronic Assessment and Plan: creatinine has been fluctuating ~ 2.0 - 2.5mg/dl since earlier this year suspected etiology of CKD due to hypertension, diabetes, and vascular disease however, his CHF and need for diuresis as well as suspected TIERRA likely playing a role Now getting dialysis treatments. Will watch for recovery (3) CHF (congestive heart failure): Qualifiers: Heart failure chronicity: acute Heart failure type: diastolic Qualified Code(s): I50.31 - Acute diastolic (congestive) heart failure Code(s): I50.9 - Heart failure, unspecified Status: Acute Assessment and Plan: acute exacerbation appears to be right sided heart failure + diastolic dysfunction Echo results noted -- normal LVSF, EF 50-55%, mild TR, no other significant valve pathology presented with dyspnea on exertion, abdominal distention and scrotal edema Still making urine on a small amount of diuretics. Will increase the diuretic dose to help with overall diuresis as he feels better he will eat better and it will be harder to keep up. (4) Respiratory failure with hypoxia: Code(s): J96.91 - Respiratory failure, unspecified with hypoxia Status: Acute Assessment and Plan: multifactorial: possible COPD suspected TIERRA/OHS fluid/volume overload CHF anemia Pulmonary following with recommendations noted follow respiratory status He is still on some oxygen. Continue breathing treatments, diuretics, and will get another dialysis tomorrow. (5) Hypertension: Qualifiers: Hypertension type: primary hypertension Qualified Code(s): I10 - Essential (primary) hypertension Code(s): I10 - Essential (primary) hypertension Status: Chronic Assessment and Plan: systolic running from 120-140 follow trend of hemodynamics (6) Anemia: Code(s): D64.9 - Anemia, unspecified Status: Chronic Assessment and Plan: partly due to CKD but worsened by acute illness on Epogen with dialysis PRBC transfusion per protocol Hemoglobin up a little bit at 8. (7) Diabetes mellitus with chronic kidney disease: Code(s): E11.22 - Type 2 diabetes mellitus with diabetic chronic kidney disease Status: Chronic Assessment and Plan: follow accuchecks glycemic control per hospitalists (8) Cellulitis: Code(s): L03.90 - Cellulitis, unspecified Status: Acute Subjective Date/time seen: 01/01/23 10:20 Interval history: patient is resting comfortably in bed. He has a little bit of shortness of breath. His oxygenation is okay. He has not had a breathing treatment yet today. Exam Narrative: General: middle aged male in moderated distress Heart: normal S1 and S2; no rub or subcu nodules Lungs: coarse and decreased at bases; some rhonchi but no crackles. Abdomen: soft, nontender, nondistended, positive bowel sounds Extremities: no cyanosis or clubbing; 1+ edema s/p right BKA Skin: no rash Or subcu nodules Objective Data Vital Signs Vital Signs: Vital Signs - 24 hr 12/31/22 10:30
--- NOTE | 2023-01-01 11:12 | PM.IMPN ---
Progress Note: A&P Assessment and Plan (1) CHF (congestive heart failure): Qualifiers: Heart failure chronicity: acute Heart failure type: diastolic Qualified Code(s): I50.31 - Acute diastolic (congestive) heart failure Code(s): I50.9 - Heart failure, unspecified Status: Acute Assessment and Plan: Continue beta-alexandra. Patient switched to Bumex and metolazone But not responding and has minimal urine output. patient started on dialysis (2) Respiratory failure with hypoxia: Code(s): J96.91 - Respiratory failure, unspecified with hypoxia Status: Acute Assessment and Plan: Appreciate pulmonary input. pt is on oxygen and BIPAP at night currently Discussed with Pulmonary he will need sleep study as an outpatient (3) Acute renal failure superimposed on chronic kidney disease: Code(s): N17.9 - Acute kidney failure, unspecified; N18.9 - Chronic kidney disease, unspecified Status: Acute Assessment and Plan: Creatinine worse. patient started on short-term dialysis. tunnel catheter placed by surgery (4) HTN (hypertension): Code(s): I10 - Essential (primary) hypertension Status: Acute Assessment and Plan: Stable (5) Anemia, chronic disease: Code(s): D63.8 - Anemia in other chronic diseases classified elsewhere Status: Acute Assessment and Plan: Stable, follow-up (6) Diabetes: Code(s): E11.9 - Type 2 diabetes mellitus without complications Status: Acute Assessment and Plan: Blood sugars reviewed and adequately controlled (7) Paroxysmal atrial fibrillation: Code(s): I48.0 - Paroxysmal atrial fibrillation Status: Chronic Assessment and Plan: Sinus rhythm. On apixaban Subjective Date/time seen: 01/01/23 11:12 Interval history: Patient does not notice much change in his breathing. Review of Systems Review of Systems: All systems reviewed & are unremarkable except as noted in HPI and below Exam Narrative: General obese,alert mildly dyspneic not in acute distress Chest with coarse breath sounds mildy tachypneic, conversational dyspnea Heart rate regular with no audible murmur Extremities no left foot edema, right with BKA and nonpitting edema of stump Abdomen protuberant but soft nontender with good bowel sounds no palpable masses Musculoskeletal right BKA as noted Objective Data Vital Signs Vital Signs: Vital Signs - 24 hr 12/31/22 11:30 12/31/22 11:45 12/31/22 12:01 Temperature Pulse Rate 108 H 95 92 Respiratory Rate Blood Pressure 117/67 131/82 136/78 Pulse Oximetry Oxygen Delivery Oxygen Flow Rate Fraction of Inspired Oxygen 12/31/22 12:10 12/31/22 12:52 12/31/22 12:00 Temperature 98.0 F Pulse Rate 104 H 104 H Respiratory Rate 16 Blood Pressure 137/75 Pulse Oximetry 97 Oxygen Delivery Nasal Cannula Oxygen Flow Rate 5 Fraction of Inspired Oxygen 12/31/22 16:00 12/31/22 12:00 12/31/22 14:00 Temperature Pulse Rate 101 H 110 H Respiratory Rate Blood Pressure Pulse Oximetry 98 Oxygen Delivery Nasal Cannula Oxygen Flow Rate 5 Fraction of Inspired Oxygen 12/31/22 16:00 12/31/22 16:41 12/31/22 18:00 Temperature 96.7 F L Pulse Rate 115 H 115 H 116 H Respiratory Rate 22 H Blood Pressure 118/75 Pulse Oximetry 100 Oxygen Delivery Oxygen Flow Rate Fraction of Inspired Oxygen 12/31/22 20:07 12/31/22 20:00 12/31/22 20:00 Temperature 97.2 F L Pulse Rate 116 H 116 H Respiratory Rate 22 H Blood Pressure 129/73 Pulse Oximetry 100 99 Oxygen Delivery Nasal Cannula Oxygen Flow Rate 5 Fraction of Inspired Oxygen 12/31/22 20:00 12/31/22 22:00 12/31/22 23:54 Temperature 97.2 F L Pulse Rate 116 H 115 H 115 H Respiratory Rate 20 Blood Pressure 112/65 Pulse Oximetry 97 Oxygen Delivery Oxygen Flow Rate Fraction of Inspired O
[2023-01-01 11:37] LABS: Glucose Point of Care 182 mg/dl (65-105)
[2023-01-01] MEDS: FLUTICASONE PROPIONATE 0.05% NA SPR 16 GM BTL (*BKC) 1 SPRAY NASAL ×2 (11:55→21:38)
[2023-01-01] MEDS: TOLNAFTATE 1% POWDER 45 GM BTL 1 APPLIC TOPICAL ×2 (11:56→21:41)
[2023-01-01] MEDS: ASPIRIN 81 MG ENTERIC TABLET PO (11:57)
[2023-01-01] MEDS: FERROUS SULFATE 324 MG TABLET PO ×2 (14:09→16:39)
--- NOTE | 2023-01-01 14:16 | PC.NURSE ---
This patient, Wilfredo Bose, was transferred to [facility] on 01/01/23 at 1416. Personal belongings sent with patient. Report given to Judit ANTONY. Appropriate documentation sent with patient.
--- NOTE | 2023-01-01 14:29 | PCOTNOTE ---
Attempted OT evaluation, patient being transferred to new room. Will follow.
--- NOTE | 2023-01-01 15:09 | PCPTNOTE ---
Patient being transferred from 2W to 3W Physical therapy will attempt re-eval tomorrow.
[2023-01-01 16:36] LABS: Glucose Point of Care 237 mg/dl (65-105)
[2023-01-01] MEDS: INSULIN ASPART (*BKC) 100 UNITS/ML SUB-Q (16:38)
[2023-01-01 20:40] LABS: Glucose Point of Care 179 mg/dl (65-105)
[2023-01-01] MEDS: AMITRIPTYLINE HCL 25 MG TABLET 50 MG PO (21:37)
[2023-01-01] MEDS: ATORVASTATIN 40 MG TABLET PO (21:37)
[2023-01-01] MEDS: QUEtiapine FUMARATE 12.5 MG TABLET PO (21:39)
[2023-01-01] MEDS: traZODone HCL 50 MG TABLET 100 MG PO (21:40)
[2023-01-01] MEDS: INSULIN GLARGINE (*BKC) 100 UNITS/ML 10 UNITS SUB-Q (21:51)
[2023-01-01] MEDS: traMADol HCL (*CRX) 50 MG TABLET 100 MG PO (21:52)
[2023-01-02] VITALS (31 sets, daily range): BP systolic 100–130; BP diastolic 74–95; PULSE 96–120; RESP 14–25; TEMP 35.3–36.4; O2SAT 96–100
[2023-01-02] MEDS: LIDOCAINE HCL 2% GEL UROJET 10 ML PKG MUCOUS MEM (00:30)
[2023-01-02] MEDS: IPRATROPIUM BR 0.02% INH SOLN 0.5 MG/2.5 ML VIAL INHALATION ×3 (01:45→21:00)
[2023-01-02] MEDS: LEVALBUTEROL NEB 1.25 MG/3 ML INHALATION ×3 (01:45→21:00)
[2023-01-02] MEDS: GABAPENTIN 100 MG CAPSULE PO ×3 (06:30→21:40)
[2023-01-02] MEDS: LEVOTHYROXINE SODIUM 100 MCG TABLET PO (06:30)
[2023-01-02] MEDS: hydrALAZINE HCL 50 MG TABLET 100 MG PO ×3 (06:30→21:40)
[2023-01-02 06:43] LABS: Basophils Percent Auto 0.3 % (0.2-1.2); Eosinophils Absolute Auto 0.1 K/mm3 (0-0.3); Eosinophils Percent Auto 1.1 % (0-4.4); Hematocrit 26.7 % (42.0-52.0); Hemoglobin 7.7 g/dL (14.0-18.0); Immature Granulocyte Absolute 0.06 K/mm3 (0.00-0.031); Immature Granulocyte Percent A 0.6 % (0-0.5); Lymphocytes Absolute Auto 0.48 K/mm3 (0.9-3.2); Lymphocytes Percent Auto 4.9 % (18.3-44.2); Mean Corpuscular HGB Conc 28.8 g/dl (32-36); Mean Corpuscular Hemoglobin 24.5 pg (26-34); Mean Platelet Volume 10.5 fl (7.4-10.4); Monocytes Absolute Auto 0.5 K/mm3 (0.1-0.6); Neutrophils Absolute Auto 8.7 K/mm3 (1.3-6.7); Neutrophils Percent Auto 88.1 % (45.5-73.1); Platelet Count Result 266 k/mm3 (150-375); Red Blood Count 3.14 M/mm3 (4.6-6.20); Red Cell Distribution Width 18.3 % (11.5-14.5); White Blood Count 9.8 K/mm3 (4.5-10.0)
[2023-01-02 06:50] LABS: Albumin Level 3.2 g/dL (3.5-5.1); Anion Gap 6 mmol/L (8-16); Blood Urea Nitrogen 61 mg/dL (9-20); Carbon Dioxide 33 mmol/L (22-30); Chloride 97 mmol/L (98-107); Estimated CRCL calculation 26 ml/min; Estimated Glomerular Filt Rate 18; Glucose 160 mg/dL (65-110); Phosphorus 4.3 mg/dL (2.5-4.5); Potassium 3.6 mmol/L (3.4-5.0); Sodium 136 mmol/L (137-145)
[2023-01-02 07:34] LABS: Platelet Estimate Adequate (Adequate)
[2023-01-02 07:36] LABS: Anisocytosis 1+ (NORMAL); Hypochromasia 1+ (NORMAL); Poikilocytosis 1+ (NORMAL); Schistocytes None Seen (NORMAL)
[2023-01-02] MEDS: traMADol HCL (*CRX) 50 MG TABLET 100 MG PO ×2 (07:54→20:23)
[2023-01-02] MEDS: METOPROLOL TARTRATE 50 MG TAB 100 MG PO ×2 (07:55→20:20)
[2023-01-02] MEDS: PYRIDOXINE HCL 50 MG TABLET PO (07:55)
[2023-01-02] MEDS: ISOSORBIDE MONONITRATE 30 MG TAB.ER.24H PO (07:56)
[2023-01-02] MEDS: FAMOTIDINE 20 MG TABLET PO ×2 (07:56→20:19)
[2023-01-02] MEDS: APIXABAN 5 MG TABLET PO ×2 (07:56→20:19)
[2023-01-02] MEDS: busPIRone HCL 10 MG TABLET PO ×3 (07:56→16:40)
[2023-01-02] MEDS: PANTOPRAZOLE SODIUM IV 40 MG VIAL IV PUSH ×2 (07:57→20:20)
[2023-01-02] MEDS: BACITRACIN OINTMENT 15 GM TUBE 1 APPLIC TOPICAL ×2 (07:57→20:20)
[2023-01-02] MEDS: BUMETANIDE INJ 2.5 MG/10 ML VIAL 2 MG IV PUSH ×2 (07:57→16:36)
[2023-01-02] MEDS: busPIRone HCL 5 MG TABLET PO ×3 (07:58→16:40)
[2023-01-02] MEDS: metOLazone 5 MG TABLET 10 MG PO ×2 (07:58→16:37)
[2023-01-02] MEDS: ASCORBIC ACID 500 MG TABLET PO (07:59)
[2023-01-02] MEDS: FLUTICASONE PROPIONATE 0.05% NA SPR 16 GM BTL (*BKC) 1 SPRAY NASAL ×2 (07:59→20:16)
[2023-01-02] MEDS: ASPIRIN 81 MG ENTERIC TABLET PO (08:03)
[2023-01-02 08:23] LABS: Glucose Point of Care 190 mg/dl (65-105)
--- NOTE | 2023-01-02 09:24 | PCPTNOTE ---
Attempted PT evaluation, pt refused due to being tired. RN aware. Will follow
[2023-01-02 10:02] LABS: Appearance Urine Turbid (Clear); Bacteria Urine 4+ /hpf; Bilirubin Urine Negative (Negative); Blood Urine 3+ (Negative); Color Urine Yellow (Yellow); Glucose Urine UA Trace mg/dL (Negative); Ketones Urine Negative (Negative); Leukocyte Esterase Ur 3+ LEU/UL (Negative); Nitrate Urine Negative (Negative); Non Pathogenic Casts 0-2; Protein Urine 3+ mg/dL (Negative); RBC Urine >100 /hpf (0-2); Specific Grav Ur 1.013 (1.001-1.035); Squamous Epithelial Cell Urine None seen /hpf (Few); WBC Urine >100 /hpf; pH Urine 7.5 (5.0-9.0)
--- NOTE | 2023-01-02 10:12 | PCNWS ---
Weekly nutritional screen. Patient is tolerating current Renal diet with adequate intake 75-100%. No weight loss reported. No nutritional needs at this time.
[2023-01-02 10:13] LABS: Add Urine Microscopic? YES
[2023-01-02] MEDS: TOLNAFTATE 1% POWDER 45 GM BTL 1 APPLIC TOPICAL ×2 (11:27→20:21)
[2023-01-02] MEDS: FERROUS SULFATE 324 MG TABLET PO ×2 (11:27→16:38)
[2023-01-02 12:01] LABS: Glucose Point of Care 250 mg/dl (65-105)
[2023-01-02] MEDS: INSULIN ASPART (*BKC) 100 UNITS/ML SUB-Q (12:17)
[2023-01-02 13:02] LABS: Glucose Point of Care 211 mg/dl (65-105)
--- NOTE | 2023-01-02 13:59 | PM.IMPN ---
Progress Note: A&P Assessment and Plan (1) CHF (congestive heart failure): Qualifiers: Heart failure chronicity: acute Heart failure type: diastolic Qualified Code(s): I50.31 - Acute diastolic (congestive) heart failure Code(s): I50.9 - Heart failure, unspecified Status: Acute Assessment and Plan: Continue beta-alexandra. Patient switched to Bumex and metolazone But not responding and has minimal urine output. patient started on dialysis (2) Respiratory failure with hypoxia: Code(s): J96.91 - Respiratory failure, unspecified with hypoxia Status: Acute Assessment and Plan: Appreciate pulmonary input. pt is on oxygen and BIPAP at night currently order CXR for CHRISTINE am (3) Acute renal failure superimposed on chronic kidney disease: Code(s): N17.9 - Acute kidney failure, unspecified; N18.9 - Chronic kidney disease, unspecified Status: Acute Assessment and Plan: Creatinine worse. patient started on short-term dialysis. tunnel catheter placed by surgery (4) HTN (hypertension): Code(s): I10 - Essential (primary) hypertension Status: Acute Assessment and Plan: Stable (5) Anemia, chronic disease: Code(s): D63.8 - Anemia in other chronic diseases classified elsewhere Status: Acute Assessment and Plan: Stable, follow-up (6) Diabetes: Code(s): E11.9 - Type 2 diabetes mellitus without complications Status: Acute Assessment and Plan: Blood sugars reviewed and adequately controlled (7) Paroxysmal atrial fibrillation: Code(s): I48.0 - Paroxysmal atrial fibrillation Status: Chronic Assessment and Plan: Sinus rhythm. On apixaban Subjective Date/time seen: 01/02/23 13:59 Interval history: 57-year-old male with insulin-dependent diabetes, coronary artery disease, paroxysmal atrial fibrillation, chronic kidney disease, hypertension, COPD, recently discharged after being treated for left leg cellulitis presented with worsening SOB/leg swelling and scrotal swelling. His scrotal swelling has been to a point where he has pain in scrotal area. PT feels sob needing 4 liters of oxygen Review of Systems Review of Systems: Ongoing sob needing oxygen and bipap All systems reviewed & are unremarkable except as noted in HPI and below Exam Narrative: General obese,alert mildly dyspneic not in acute distress Chest with coarse breath sounds mildy tachypneic, conversational dyspnea Heart rate regular with no audible murmur Extremities no left foot edema, right with BKA and nonpitting edema of stump Abdomen protuberant but soft nontender with good bowel sounds no palpable masses Musculoskeletal right BKA as noted Objective Data Vital Signs Vital Signs: Vital Signs - 24 hr 01/01/23 14:47 01/01/23 14:54 01/01/23 16:00 Temperature 36.2 C L Pulse Rate 113 H 11 L 113 H Respiratory Rate 26 H 26 H 22 H Blood Pressure 104/73 Pulse Oximetry 99 Oxygen Delivery Oxygen Flow Rate Fraction of Inspired Oxygen 01/01/23 16:00 01/01/23 19:35 01/01/23 19:35 Temperature Pulse Rate 105 H 102 H Respiratory Rate 25 H Blood Pressure Pulse Oximetry 93 Oxygen Delivery Nasal Cannula Oxygen Flow Rate 4 Fraction of Inspired Oxygen 01/01/23 19:44 01/01/23 19:44 01/01/23 21:38 Temperature Pulse Rate 109 H 109 H Respiratory Rate 26 H 30 H Blood Pressure Pulse Oximetry 98 Oxygen Delivery BiPAP Oxygen Flow Rate Fraction of Inspired Oxygen 01/01/23 21:49 01/02/23 01:45 01/02/23 02:04 Temperature 36.7 C Pulse Rate 115 H 110 H Respiratory Rate 14 24 H 24 H Blood Pressure 116/74 Pulse Oximetry 97 97 Oxygen Delivery BiPAP Oxygen Flow Rate Fraction of Inspired Oxygen 01/02/23 02:04 01/01/23 20:00 01/01/23 20:00 Temperature Pulse Rate 111 H 117 H Respiratory Rate 24 H Blood Pressure Pulse Ox
[2023-01-02] MEDS: EPOETIN ALFA-EPBX 10,000 UNITS/ML VIAL 10000 UNITS IV PUSH (14:44)
[2023-01-02] MEDS: SODIUM CHLORIDE 0.9% IV 1,000 ML 999 ML IV CONT ×2 (14:45)
--- NOTE | 2023-01-02 15:15 | P.PNNP_ITS ---
Progress Note: A&P Assessment and Plan (1) JOSE M (acute kidney injury): Code(s): N17.9 - Acute kidney failure, unspecified Status: Acute Assessment and Plan: * due to ongoing attempts at diuresis with high dose diuretics * however, evidence of diuretic resistance noted * evaluation noted: * renal ultrasound normal * urine electrolytes look prerenal (inspite of clear evidence of volume overload) * urine eosinophils negative * serological testing negative to date (JEZ, ANCA, complements, SPEP, UPEP....etc * still making some urine * HD/DUF today for further fluid removal * follow repeat labs and UOP for potential recovery (2) Chronic kidney disease, stage IV (severe): Code(s): N18.4 - Chronic kidney disease, stage 4 (severe) Status: Chronic Assessment and Plan: * creatinine has been fluctuating ~ 2.0 - 2.5mg/dl since earlier this year * suspected etiology of CKD due to hypertension, diabetes, and vascular disease * however, his CHF and need for diuresis as well as suspected TIERRA likely playing a role (3) CHF (congestive heart failure): Qualifiers: Heart failure chronicity: acute Heart failure type: diastolic Mehdi lified Code(s): I50.31 - Acute diastolic (congestive) heart failure Code(s): I50.9 - Heart failure, unspecified Status: Acute Assessment and Plan: * acute exacerbation * appears to be right sided heart failure + diastolic dysfunction * Echo results noted -- normal LVSF, EF 50-55%, mild TR, no other significant valve pathology * presented with dyspnea on exertion, abdominal distention and scrotal edema * still making urine (on bumex + metolazone) * follow volume status (4) Respiratory failure with hypoxia: Code(s): J96.91 - Respiratory failure, unspecified with hypoxia Status: Acute Assessment and Plan: * multifactorial: * possible COPD * suspected TIERRA/OHS * fluid/volume overload * CHF * anemia * Pulmonary following with recommendations noted * follow respiratory status * still on some oxygen * continue breathing treatments, diuretics, and dialysis/DUF (5) Hypertension: Qualifiers: Hypertension type: primary hypertension Qualified Code(s): I10 - Essential (primary) hypertension Code(s): I10 - Essential (primary) hypertension Status: Chronic Assessment and Plan: * reasonable control * follow trend of hemodynamics (6) Anemia: Code(s): D64.9 - Anemia, unspecified Status: Chronic Assessment and Plan: * partly due to CKD but worsened by acute illness * on Epogen with dialysis * PRBC transfusion per protocol * follow trend of H/H (7) Diabetes mellitus with chronic kidney disease: Code(s): E11.22 - Type 2 diabetes mellitus with diabetic chronic kidney disease Status: Chronic Assessment and Plan: * follow accuchecks * glycemic control per hospitalists Will continue to follow. Subjective Date/time seen: 01/02/23 15:15 Interval history: Follow-up for acute kidney injury on chronic kidney disease along with volume overload. Chart reviewed since last seen -- tolerating hemodialysis/DUF treatment at the the time of my visit (seen on HD/DUF at 3:00PM); states that he feels tired, dizzy and short of breath; seems a bit tachypneic/dyspneic but in no acute distress; no issues/events overnight or earlier this morning. Exam Narrative: General: middle aged [place]
--- NOTE | 2023-01-02 15:15 | PM.PNNEP ---
Progress Note: A&P Assessment and Plan (1) JOSE M (acute kidney injury): Code(s): N17.9 - Acute kidney failure, unspecified Status: Acute Assessment and Plan: due to ongoing attempts at diuresis with high dose diuretics however, evidence of diuretic resistance noted evaluation noted: renal ultrasound normal urine electrolytes look prerenal (inspite of clear evidence of volume overload) urine eosinophils negative serological testing negative to date (JEZ, ANCA, complements, SPEP, UPEP....etc still making some urine HD/DUF today for further fluid removal follow repeat labs and UOP for potential recovery (2) Chronic kidney disease, stage IV (severe): Code(s): N18.4 - Chronic kidney disease, stage 4 (severe) Status: Chronic Assessment and Plan: creatinine has been fluctuating ~ 2.0 - 2.5mg/dl since earlier this year suspected etiology of CKD due to hypertension, diabetes, and vascular disease however, his CHF and need for diuresis as well as suspected TIERRA likely playing a role (3) CHF (congestive heart failure): Qualifiers: Heart failure chronicity: acute Heart failure type: diastolic Qualified Code(s): I50.31 - Acute diastolic (congestive) heart failure Code(s): I50.9 - Heart failure, unspecified Status: Acute Assessment and Plan: acute exacerbation appears to be right sided heart failure + diastolic dysfunction Echo results noted -- normal LVSF, EF 50-55%, mild TR, no other significant valve pathology presented with dyspnea on exertion, abdominal distention and scrotal edema still making urine (on bumex + metolazone) follow volume status (4) Respiratory failure with hypoxia: Code(s): J96.91 - Respiratory failure, unspecified with hypoxia Status: Acute Assessment and Plan: multifactorial: possible COPD suspected TIERRA/OHS fluid/volume overload CHF anemia Pulmonary following with recommendations noted follow respiratory status still on some oxygen continue breathing treatments, diuretics, and dialysis/DUF (5) Hypertension: Qualifiers: Hypertension type: primary hypertension Qualified Code(s): I10 - Essential (primary) hypertension Code(s): I10 - Essential (primary) hypertension Status: Chronic Assessment and Plan: reasonable control follow trend of hemodynamics (6) Anemia: Code(s): D64.9 - Anemia, unspecified Status: Chronic Assessment and Plan: partly due to CKD but worsened by acute illness on Epogen with dialysis PRBC transfusion per protocol follow trend of H/H (7) Diabetes mellitus with chronic kidney disease: Code(s): E11.22 - Type 2 diabetes mellitus with diabetic chronic kidney disease Status: Chronic Assessment and Plan: follow accuchecks glycemic control per hospitalists Will continue to follow. Subjective Date/time seen: 01/02/23 15:15 Interval history: Follow-up for acute kidney injury on chronic kidney disease along with volume overload. Chart reviewed since last seen -- tolerating hemodialysis/DUF treatment at the the time of my visit (seen on HD/DUF at 3:00PM); states that he feels tired, dizzy and short of breath; seems a bit tachypneic/dyspneic but in no acute distress; no issues/events overnight or earlier this morning. Exam Narrative: General: middle aged male in mild distress Heart: normal S1 and S2; no rub Lungs: coarse and decreased at bases; some rhonchi present Abdomen: soft, nontender, nondistended, positive bowel sounds Extremities: no cyanosis or clubbing; 1+ edema; s/p right BKA Skin: warm and dry Objective Data Vital Signs Vital Signs: Vital Signs Temp Pulse Resp BP Pulse Ox O2 Del Method O2 Flow Rate 01/02/23 14:50 111 H 100/77 01/02/23 14:30 113 H 100/79 01/02/23 14:30 120 H 122/74 01/02/23 13:50 109 H
[2023-01-02 16:59] LABS: Glucose Point of Care 119 mg/dl (65-105)
[2023-01-02 17:02] LABS: Glucose Point of Care 122 mg/dl (65-105)
[2023-01-02] MEDS: ATORVASTATIN 40 MG TABLET PO (20:19)
[2023-01-02] MEDS: traZODone HCL 50 MG TABLET 100 MG PO (20:19)
[2023-01-02] MEDS: AMITRIPTYLINE HCL 25 MG TABLET 50 MG PO (20:19)
[2023-01-02] MEDS: QUEtiapine FUMARATE 12.5 MG TABLET PO (20:20)
[2023-01-02 21:00] LABS: Glucose Point of Care 137 mg/dl (65-105)
[2023-01-02] MEDS: INSULIN GLARGINE (*BKC) 100 UNITS/ML 10 UNITS SUB-Q (22:17)
--- NOTE | 2023-01-02 22:44 | PC.NURSE ---
Order obtained to culture drainage from tip of penis to r/o ureteritis. Drainage is purulent. Assessed by RN and Dr. York.
--- NOTE | 2023-01-02 23:03 | P.PNCROSS_ITS ---
Event Note Event Note Event Note: 01/02/2023 approximately 22:00 nursing staff call the to tell me that the patie nt's penis was swollen and that tissue 0s pain is was protruding and that the patient had some blood from his penis. They had I cleansed the area in the patient's PE now meatus was quite tender. The patient had received some topical lidocaine yesterday due to similar pain. Has me, evaluate the patient's penis as they were also concerned about an area of skin in the 10 o'clock position. When I went to evaluate the patient at he had edema to his inferior for skin at the 4 to 6 o'clock position. When the meatus was but pulled back patient did have a fair amount of purulence surrounding the catheter site and what looks like a developing ulceration to the skin at the 8 to 10 o'clock position inside the meatus. The catheter is draining with dark clear urine. Purulent penile drainage---possible ureteritis. I have requested nursing staff send material down for culture. The patient is currently afebrile. He has been persistently tachycardic and tachypneic since admission but this is relatively unchanged. He remains afebrile. He is on BiPAP per usual. Will hold off on IV antibiotics at this time and will start the patient on bacitracin locally. Other factors impacting patient's tachycardia include anemia but hemoglobin appears relatively stable. Repeat labs already ordered for morning. Nursing staff was worried that the patient may have infection that was worsening and patient may decompensate. The patient is tachypneic but tachypnea is unchanged. He is not having increased work of breathing. Continue close monitoring. Continue diuretic therapy. Labs reviewed. 30 minute spent in critical care activities. This case had a high probability of a clinically significant, sudden, or life threatening deterioration of this patient's condition which required my full and direct attention, intervention and personal management.
[2023-01-03] VITALS (35 sets, daily range): BP systolic 95–126; BP diastolic 51–84; PULSE 91–115; RESP 14–26; TEMP 36–36.6; O2SAT 94–99
[2023-01-03] MEDS: IPRATROPIUM BR 0.02% INH SOLN 0.5 MG/2.5 ML VIAL INHALATION ×4 (02:30→20:24)
[2023-01-03] MEDS: LEVALBUTEROL NEB 1.25 MG/3 ML INHALATION ×4 (02:30→20:24)
[2023-01-03] MEDS: GABAPENTIN 100 MG CAPSULE PO ×3 (06:22→21:14)
[2023-01-03] MEDS: LEVOTHYROXINE SODIUM 100 MCG TABLET PO (06:22)
[2023-01-03] MEDS: hydrALAZINE HCL 50 MG TABLET 100 MG PO ×2 (06:22→21:14)
[2023-01-03 06:37] LABS: Anion Gap 8 mmol/L (8-16); Blood Urea Nitrogen 36 mg/dL (9-20); Calcium 7.9 mg/dL (8.4-10.2); Carbon Dioxide 32 mmol/L (22-30); Chloride 98 mmol/L (98-107); Estimated CRCL calculation 27 ml/min; Estimated Glomerular Filt Rate 23; Glucose 110 mg/dL (65-110); Potassium 3.6 mmol/L (3.4-5.0); Sodium 138 mmol/L (137-145)
[2023-01-03 07:29] LABS: Glucose Point of Care 109 mg/dl (65-105)
[2023-01-03] MEDS: BUMETANIDE INJ 2.5 MG/10 ML VIAL 2 MG IV PUSH ×2 (09:06→18:33)
[2023-01-03] MEDS: ASCORBIC ACID 500 MG TABLET PO (09:06)
[2023-01-03] MEDS: busPIRone HCL 10 MG TABLET PO ×3 (09:06→18:34)
[2023-01-03] MEDS: APIXABAN 5 MG TABLET PO ×2 (09:06→20:47)
[2023-01-03] MEDS: ASPIRIN 81 MG ENTERIC TABLET PO (09:06)
[2023-01-03] MEDS: busPIRone HCL 5 MG TABLET PO ×3 (09:07→18:34)
[2023-01-03] MEDS: PYRIDOXINE HCL 50 MG TABLET PO (09:07)
[2023-01-03] MEDS: FLUTICASONE PROPIONATE 0.05% NA SPR 16 GM BTL (*BKC) 1 SPRAY NASAL ×2 (09:07→21:13)
[2023-01-03] MEDS: FAMOTIDINE 20 MG TABLET PO ×2 (09:07→20:48)
[2023-01-03] MEDS: PANTOPRAZOLE SODIUM IV 40 MG VIAL IV PUSH ×2 (09:07→20:47)
[2023-01-03] MEDS: metOLazone 5 MG TABLET 10 MG PO ×2 (09:08→18:35)
[2023-01-03] MEDS: ISOSORBIDE MONONITRATE 30 MG TAB.ER.24H PO (09:09)
[2023-01-03] MEDS: traMADol HCL (*CRX) 50 MG TABLET 100 MG PO ×2 (09:19→19:49)
[2023-01-03] MEDS: METOPROLOL TARTRATE 50 MG TAB 100 MG PO ×2 (09:49→20:49)
[2023-01-03] MEDS: UMECLIDINIUM/VILANTEROL 62.5-25 MCG ELLIPTA 1 PUFF INHALATION (11:02)
[2023-01-03 11:33] LABS: Glucose Point of Care 118 mg/dl (65-105)
[2023-01-03] MEDS: FERROUS SULFATE 324 MG TABLET PO ×2 (12:10→18:34)
[2023-01-03] MEDS: BACITRACIN OINTMENT 15 GM TUBE 1 APPLIC TOPICAL ×2 (13:32→22:09)
[2023-01-03] MEDS: TOLNAFTATE 1% POWDER 45 GM BTL 1 APPLIC TOPICAL ×2 (13:32→22:09)
--- NOTE | 2023-01-03 14:30 | PM.IMPN ---
Progress Note: A&P Assessment and Plan (1) CHF (congestive heart failure): Qualifiers: Heart failure chronicity: acute Heart failure type: diastolic Qualified Code(s): I50.31 - Acute diastolic (congestive) heart failure Code(s): I50.9 - Heart failure, unspecified Status: Acute Assessment and Plan: Continue beta-alexandra. Patient switched to Bumex for diuresis. patient started on dialysis. nephrology rounding reconsult cardiology for further advice (2) Respiratory failure with hypoxia: Code(s): J96.91 - Respiratory failure, unspecified with hypoxia Status: Acute Assessment and Plan: Appreciate pulmonary input. reconsult pulmonology for further advice pt is on oxygen and BIPAP at night currently order CXR for CHRISTINE am (3) Acute renal failure superimposed on chronic kidney disease: Code(s): N17.9 - Acute kidney failure, unspecified; N18.9 - Chronic kidney disease, unspecified Status: Acute Assessment and Plan: Creatinine worse. patient started on short-term dialysis. tunnel catheter placed by surgery (4) HTN (hypertension): Code(s): I10 - Essential (primary) hypertension Status: Acute Assessment and Plan: Stable (5) Anemia, chronic disease: Code(s): D63.8 - Anemia in other chronic diseases classified elsewhere Status: Acute Assessment and Plan: Stable, follow-up hb is 7 pt to have epogen shot Continue to monitor Hb pt may benefit from blood transfusion if hb drops less than 7 (6) Diabetes: Code(s): E11.9 - Type 2 diabetes mellitus without complications Status: Acute Assessment and Plan: Blood sugars reviewed and adequately controlled (7) Paroxysmal atrial fibrillation: Code(s): I48.0 - Paroxysmal atrial fibrillation Status: Chronic Assessment and Plan: Sinus rhythm. On apixaban Subjective Date/time seen: 01/03/23 14:30 Interval history: 57-year-old male with insulin-dependent diabetes, coronary artery disease, paroxysmal atrial fibrillation, chronic kidney disease, hypertension, COPD, recently discharged after being treated for left leg cellulitis presented with worsening SOB/leg swelling and scrotal swelling. His scrotal swelling has been to a point where he has pain in scrotal area. Pt still feeling SOB difficulty completing sentences, cardiology on board pt receiving IV BID Pt is a new dialysis patient HB is lower range at 7, pt will get epogen shot D/w with nephrology Will reconsult cardiology and pulmonology Pt has history of COPD and TIERRA awaiting improvement in respiratory status Review of Systems Review of Systems: SOB at rest All systems reviewed & are unremarkable except as noted in HPI and below Exam Narrative: General obese,alert mildly dyspneic not in acute distress Chest with coarse breath sounds mildy tachypneic, conversational dyspnea Heart rate regular with no audible murmur Extremities no left foot edema, right with BKA and nonpitting edema of stump Abdomen protuberant but soft nontender with good bowel sounds no palpable masses Musculoskeletal right BKA as noted Objective Data Vital Signs Vital Signs: Vital Signs - 24 hr 01/02/23 14:50 01/02/23 15:10 01/02/23 15:30 Temperature Pulse Rate 111 H 109 H 108 H Respiratory Rate Blood Pressure 100/77 118/80 101/79 Pulse Oximetry Oxygen Delivery Oxygen Flow Rate 01/02/23 15:50 01/02/23 16:10 01/02/23 16:25 Temperature Pulse Rate 107 H 110 H 96 Respiratory Rate Blood Pressure 115/76 106/82 130/89 Pulse Oximetry Oxygen Delivery Oxygen Flow Rate 01/02/23 16:30 01/02/23 20:20 01/02/23 21:00 Temperature 36.3 C L Pulse Rate 102 H 116 H 115 H Respiratory Rate 24 H 24 H Blood Pressure 124/76 Pulse Oximetry Oxygen Delivery Oxygen Flow Rate 01/02/23 21:08 01/02/23 21:09 01/02/23 21:18 Temperatu
--- NOTE | 2023-01-03 16:21 | PM.PNNEP ---
Progress Note: A&P Assessment and Plan (1) JOSE M (acute kidney injury): Code(s): N17.9 - Acute kidney failure, unspecified Status: Acute Assessment and Plan: due to ongoing attempts at diuresis with high dose diuretics however, evidence of diuretic resistance noted evaluation noted: renal ultrasound normal urine electrolytes look prerenal (inspite of clear evidence of volume overload) urine eosinophils negative serological testing negative to date (JEZ, ANCA, complements, SPEP, UPEP....etc still making some urine HD/DUF today for further fluid removal follow repeat labs and UOP for potential recovery (2) Chronic kidney disease, stage IV (severe): Code(s): N18.4 - Chronic kidney disease, stage 4 (severe) Status: Chronic Assessment and Plan: creatinine has been fluctuating ~ 2.0 - 2.5mg/dl since earlier this year suspected etiology of CKD due to hypertension, diabetes, and vascular disease however, his CHF and need for diuresis as well as suspected TIERRA likely playing a role (3) CHF (congestive heart failure): Qualifiers: Heart failure chronicity: acute Heart failure type: diastolic Qualified Code(s): I50.31 - Acute diastolic (congestive) heart failure Code(s): I50.9 - Heart failure, unspecified Status: Acute Assessment and Plan: acute exacerbation appears to be right sided heart failure + diastolic dysfunction Echo results noted -- normal LVSF, EF 50-55%, mild TR, no other significant valve pathology presented with dyspnea on exertion, abdominal distention and scrotal edema still making urine (on bumex + metolazone) follow volume status (4) Respiratory failure with hypoxia: Code(s): J96.91 - Respiratory failure, unspecified with hypoxia Status: Acute Assessment and Plan: multifactorial: possible COPD suspected TIERRA/OHS fluid/volume overload CHF anemia Pulmonary following with recommendations noted follow respiratory status still on some oxygen continue breathing treatments, diuretics, and dialysis/DUF (5) Hypertension: Qualifiers: Hypertension type: primary hypertension Qualified Code(s): I10 - Essential (primary) hypertension Code(s): I10 - Essential (primary) hypertension Status: Chronic Assessment and Plan: reasonable control follow trend of hemodynamics (6) Anemia: Code(s): D64.9 - Anemia, unspecified Status: Chronic Assessment and Plan: partly due to CKD but worsened by acute illness on Epogen with dialysis PRBC transfusion per protocol follow trend of H/H (7) Diabetes mellitus with chronic kidney disease: Code(s): E11.22 - Type 2 diabetes mellitus with diabetic chronic kidney disease Status: Chronic Assessment and Plan: follow accuchecks glycemic control per hospitalists Will continue to follow. Subjective Date/time seen: 01/03/23 16:21 Interval history: Follow-up for acute kidney injury on chronic kidney disease along with volume overload. Tolerating dry ultrafiltration treatment at the time of my visit (seen on DUF at 4:05PM); respiratory status still remains somewhat tenuous despite all interventions to date. Exam Narrative: General: middle aged male in mild distress Heart: normal S1 and S2; no rub Lungs: coarse and decreased at bases; some rhonchi present Abdomen: soft, nontender, nondistended, positive bowel sounds Extremities: no cyanosis or clubbing; 1+ edema; s/p right BKA Skin: warm and intact Objective Data Vital Signs Vital Signs: Vital Signs Temp Pulse Resp BP Pulse Ox O2 Del Method O2 Flow Rate 01/03/23 15:42 110 H 22 H 01/03/23 15:31 112 H 22 H 01/03/23 13:49 97.3 F L 113 H 22 H 126/72 99 01/03/23 09:00 95 Nasal Cannula 4 01/03/23 10:03 96 Nasal Cannula 4 01/03/23 10:02 114 H 22 H 01/03/23
--- NOTE | 2023-01-03 16:21 | P.PNNP_ITS ---
Progress Note: A&P Assessment and Plan (1) JOSE M (acute kidney injury): Code(s): N17.9 - Acute kidney failure, unspecified Status: Acute Assessment and Plan: * due to ongoing attempts at diuresis with high dose diuretics * however, evidence of diuretic resistance noted * evaluation noted: * renal ultrasound normal * urine electrolytes look prerenal (inspite of clear evidence of volume overload) * urine eosinophils negative * serological testing negative to date (JEZ, ANCA, complements, SPEP, UPEP....etc * still making some urine * HD/DUF today for further fluid removal * follow repeat labs and UOP for potential recovery (2) Chronic kidney disease, stage IV (severe): Code(s): N18.4 - Chronic kidney disease, stage 4 (severe) Status: Chronic Assessment and Plan: * creatinine has been fluctuating ~ 2.0 - 2.5mg/dl since earlier this year * suspected etiology of CKD due to hypertension, diabetes, and vascular disease * however, his CHF and need for diuresis as well as suspected TIERRA likely playing a role (3) CHF (congestive heart failure): Qualifiers: Heart failure chronicity: acute Heart failure type: diastolic Mehdi lified Code(s): I50.31 - Acute diastolic (congestive) heart failure Code(s): I50.9 - Heart failure, unspecified Status: Acute Assessment and Plan: * acute exacerbation * appears to be right sided heart failure + diastolic dysfunction * Echo results noted -- normal LVSF, EF 50-55%, mild TR, no other significant valve pathology * presented with dyspnea on exertion, abdominal distention and scrotal edema * still making urine (on bumex + metolazone) * follow volume status (4) Respiratory failure with hypoxia: Code(s): J96.91 - Respiratory failure, unspecified with hypoxia Status: Acute Assessment and Plan: * multifactorial: * possible COPD * suspected TIERRA/OHS * fluid/volume overload * CHF * anemia * Pulmonary following with recommendations noted * follow respiratory status * still on some oxygen * continue breathing treatments, diuretics, and dialysis/DUF (5) Hypertension: Qualifiers: Hypertension type: primary hypertension Qualified Code(s): I10 - Essential (primary) hypertension Code(s): I10 - Essential (primary) hypertension Status: Chronic Assessment and Plan: * reasonable control * follow trend of hemodynamics (6) Anemia: Code(s): D64.9 - Anemia, unspecified Status: Chronic Assessment and Plan: * partly due to CKD but worsened by acute illness * on Epogen with dialysis * PRBC transfusion per protocol * follow trend of H/H (7) Diabetes mellitus with chronic kidney disease: Code(s): E11.22 - Type 2 diabetes mellitus with diabetic chronic kidney disease Status: Chronic Assessment and Plan: * follow accuchecks * glycemic control per hospitalists Will continue to follow. Subjective Date/time seen: 01/03/23 16:21 Interval history: Follow-up for acute kidney injury on chronic kidney disease along with volume overload. Tolerating dry ultrafiltration treatment at the time of my visit (seen on DUF at 4:05PM); respiratory status still remains somewhat tenuous despite all interventions to date. Exam Narrative: General: middle aged male in mild distress Heart: normal S1 and S2; no rub Lungs: coarse and decreased at bases; some rhonchi presen
[2023-01-03 16:38] LABS: Glucose Point of Care 138 mg/dl (65-105)
--- NOTE | 2023-01-03 18:10 | PM.PNCARD ---
Progress Note: A&P Assessment and Plan (1) CHF (congestive heart failure): Qualifiers: Heart failure chronicity: acute Heart failure type: diastolic Qualified Code(s): I50.31 - Acute diastolic (congestive) heart failure Code(s): I50.9 - Heart failure, unspecified Status: Acute Assessment and Plan: Patient with chronic AF with heart failure with preserved ejection fraction. Started dialysis 12/30/2022 and has had minimal improvement in his respiratory status despite being on dialysis. CXR still with diffuse bilateral airspace disease, and doesn't appear to have improved despite volume removal through dialysis + diuretics. Would continue with diuretic therapy for now since still making urine. CXR ordered for AM - will follow up. (2) Paroxysmal atrial fibrillation: Code(s): I48.0 - Paroxysmal atrial fibrillation Status: Chronic Assessment and Plan: Cont Eliquis and metoprolol. Subjective Date/time seen: 01/03/23 18:10 Interval history: Reason for visit: Decompensated heart failure, atrial flutter HPI: Patient is a 57-year-old male who has a history of coronary disease.? Details are not known.? He follows with [facility].? He has had progressive lower extremity and scrotal edema as well as worsening shortness of breath over the past several months.? Symptoms worsened to the point that his testicles and foreskin were swollen and painful and decided to come to the hospital for further evaluation.? He was started on IV diuretics and was found to be in volume overload and is already feeling a little bit better with less swelling and less shortness of breath.? He does describe some orthopnea.? No chest pain.? No syncope, presyncope, paroxysmal nocturnal dyspnea.? Does have occasional palpitations.? He was recently admitted to this hospital for treatment of cellulitis. 12/16: Continues to complain of shortness of breath today.? Does not think his breathing has improved any since yesterday.? Has shortness of breath with minimal exertion.? No chest pain, palpitations. 12/17: Feeling better. No new complaints this morning. e 12/18: Diuresing well. No shortness of breath. Lower extremity edema significantly improved. Per discussion with RN, cannot wean off oxygen. Patient was not on home oxygen. Desats quickly without supplemental oxygen. 12/19/2022: Complaining of pain in his neck, back, and buttocks from lying in bed for several days. He continues to become short of breath with minimal activity such as moving around in bed. Unable to wean O2. 12/20/2022: He is feeling better today. Breathing is better. He denies any chest pain. His neck and back pain have resolved. 12/21/2022: Patient sleeping, somewhat lethargic but arousable states his breathing was a little better, denied pain. Patient is status post right thoracentesis with 1 L fluid removal earlier today. Decreasing O2 requirement. Patient remains in atrial flutter with controlled rate variable AV block on telemetry. Date of service 12/22/2022: Patient feels much better much less short of breath. Denies chest pain or palpitations. Sleeping better. No other complaints. Afebrile. Remains in atrial flutter variable AV block. Labs not reported yet this morning. Date of service 12/27/2022: Has increased shortness of breath this evening after receiving blood transfusion. No other complaints. Date of service 12/30/2022: Patient having worsening dyspnea last night and again this morning. Plans are in place for this afternoon to place a dialysis catheter and [place] [facility] what is hopefully temporary hemodialysis later today. Patient is having significant shortness of breath with dyspnea with minimal conversation. Date of service 12/31/2022: Had 3 L removed with dialysis yesterday and another 3 L today. Pt thinks it is helping. On BiPAP over night and nasal cannula during the day. Chest x-ray from yesterday reviewed, CHF wh
[2023-01-03 20:03] LABS: Glucose Point of Care 130 mg/dl (65-105)
[2023-01-03] MEDS: QUEtiapine FUMARATE 12.5 MG TABLET PO (20:47)
[2023-01-03] MEDS: ATORVASTATIN 40 MG TABLET PO (20:48)
[2023-01-03] MEDS: AMITRIPTYLINE HCL 25 MG TABLET 50 MG PO (20:48)
[2023-01-03] MEDS: traZODone HCL 50 MG TABLET 100 MG PO (20:49)
[2023-01-03] MEDS: INSULIN GLARGINE (*BKC) 100 UNITS/ML 10 UNITS SUB-Q (21:14)
[2023-01-04] VITALS (18 sets, daily range): BP systolic 112–132; BP diastolic 71–86; PULSE 107–123; RESP 14–32; TEMP 35.6–36.9; O2SAT 92–97
[2023-01-04] MEDS: traMADol HCL (*CRX) 50 MG TABLET 100 MG PO ×3 (02:23→22:09)
[2023-01-04] MEDS: IPRATROPIUM BR 0.02% INH SOLN 0.5 MG/2.5 ML VIAL INHALATION ×4 (02:49→21:15)
[2023-01-04] MEDS: LEVALBUTEROL NEB 1.25 MG/3 ML INHALATION ×2 (02:49→07:45)
[2023-01-04] MEDS: hydrALAZINE HCL 50 MG TABLET 100 MG PO ×2 (05:34→21:42)
[2023-01-04] MEDS: GABAPENTIN 100 MG CAPSULE PO ×3 (05:34→21:42)
[2023-01-04] MEDS: LEVOTHYROXINE SODIUM 100 MCG TABLET PO (05:34)
[2023-01-04 06:27] LABS: Anion Gap 2 mmol/L (8-16); Blood Urea Nitrogen 48 mg/dL (9-20); Carbon Dioxide 33 mmol/L (22-30); Chloride 97 mmol/L (98-107); Estimated CRCL calculation 19 ml/min; Estimated Glomerular Filt Rate 15; Glucose 114 mg/dL (65-110); Potassium 3.8 mmol/L (3.4-5.0); Sodium 132 mmol/L (137-145)
[2023-01-04 07:24] LABS: Glucose Point of Care 110 mg/dl (65-105)
[2023-01-04] MEDS: UMECLIDINIUM/VILANTEROL 62.5-25 MCG ELLIPTA 1 PUFF INHALATION (07:52)
[2023-01-04] MEDS: metOLazone 5 MG TABLET 10 MG PO ×2 (08:06→15:55)
[2023-01-04] MEDS: polyethylene glycoL 3350 17 GM POWD.PACK PO (08:06)
[2023-01-04] MEDS: FLUTICASONE PROPIONATE 0.05% NA SPR 16 GM BTL (*BKC) 1 SPRAY NASAL ×2 (08:06→21:43)
[2023-01-04] MEDS: APIXABAN 5 MG TABLET PO (08:06)
[2023-01-04] MEDS: PYRIDOXINE HCL 50 MG TABLET PO (08:07)
[2023-01-04] MEDS: PANTOPRAZOLE SODIUM IV 40 MG VIAL IV PUSH ×2 (08:07→21:43)
[2023-01-04] MEDS: busPIRone HCL 5 MG TABLET PO ×3 (08:07→15:55)
[2023-01-04] MEDS: ASCORBIC ACID 500 MG TABLET PO (08:07)
[2023-01-04] MEDS: FAMOTIDINE 20 MG TABLET PO ×2 (08:07→21:43)
[2023-01-04] MEDS: BUMETANIDE INJ 2.5 MG/10 ML VIAL 2 MG IV PUSH ×2 (08:07→15:53)
[2023-01-04] MEDS: busPIRone HCL 10 MG TABLET PO ×3 (08:07→15:56)
[2023-01-04] MEDS: ASPIRIN 81 MG ENTERIC TABLET PO (08:07)
--- NOTE | 2023-01-04 10:05 | PM.PNPUL ---
Progress Note: A&P Assessment and Plan (1) CHF (congestive heart failure): Qualifiers: Heart failure chronicity: acute Heart failure type: diastolic Qualified Code(s): I50.31 - Acute diastolic (congestive) heart failure Code(s): I50.9 - Heart failure, unspecified Status: Acute (2) Diabetes: Code(s): E11.9 - Type 2 diabetes mellitus without complications Status: Acute (3) Diabetes mellitus with chronic kidney disease: Code(s): E11.22 - Type 2 diabetes mellitus with diabetic chronic kidney disease Status: Chronic (4) Respiratory failure with hypoxia: Code(s): J96.91 - Respiratory failure, unspecified with hypoxia Status: Acute Assessment and Plan: Patient's respiratory status has been essentially unchanged over the last 10 days. He continues to have right pleural effusion and mild pulmonary congestion despite diuresis with diuretics and fluid removal through dialysis. Pleural fluid analysis showed transudate. His gas exchange is also unchanged with the patient requiring supplemental oxygen via nasal cannula. It appears as though the patient's pleural effusion is persistent despite aggressive diuresis and fluid removal which may indicate severe left ventricular diastolic dysfunction. Respiratory status is entirely contingent upon improvement of left ventricular diastolic dysfunction. Doubt there is lower respiratory tract infection. Plan: Will get sputum culture arterial blood gases and repeat MRSA screening. I have discontinued beta agonists in case tachycardia was related to these medications and in effort to mitigate effects of tachycardia on the left ventricular diastolic pressure. (5) Pleural effusion: Code(s): J90 - Pleural effusion, not elsewhere classified Status: Acute (6) Paroxysmal atrial fibrillation: Code(s): I48.0 - Paroxysmal atrial fibrillation Status: Chronic Subjective Date/time seen: 01/04/23 10:05 Interval history: Asked by hospitalist Service to re-evaluate patient regarding respiratory failure. Patient was last evaluated by Pulmonary Services approximately 10 days ago. Patient has been diagnosed with a left ventricular diastolic dysfunction and respiratory failure. His respiratory failure was related to a pulmonary edema, right pleural effusion and possibly sleep disordered breathing. Patient has been treated with BiPAP support supplemental oxygen. In addition he has undergone right thoracentesis with pleural fluid analysis showing transudate related to congestive heart failure. Currently the patient is on dialysis as his renal function has worsened since admission to the hospital. His gas exchange has remained more or less unchanged, requiring supplemental oxygen at 2 liters/minute via nasal cannula. In addition he is on BiPAP support at night and p.r.n. during the day. Last arterial blood gases approximately 1 week ago showed mild hypercapnia with a pH of 7.41. Other pertinent history is positive MRSA screening. His chest x-ray has been essentially unchanged, still showing right pleural effusion and mild pulmonary congestion. His heart rate remains relatively fast over 100 per minute. He is receiving nebulized short-acting bronchodilators presumably for COPD. Currently refusing BiPAP support. Overall he has been fluid negative. Review of Systems Review of Systems: All systems reviewed & are unremarkable except as noted in HPI and below (HPI and below) Exam Narrative: GENERAL APPEARANCE: Well developed, well nourished, alert and cooperative, and appears to be in mild respiratory distress while on supplemental oxygen via nasal cannula at 2 liters/minute. HEENT: Sclerae anicteric and conjunctivae pink and moist. Extraocular movements were intact and pupils were equal. Dry oral mucosa NECK: Supple. There was no thyroid enlargement, and no tenderness, or masses were felt. CHEST: Normal AP diameter and norm
[2023-01-04 10:21] LABS: Basophils Percent Auto 0.4 % (0.2-1.2); Eosinophils Absolute Auto 0.1 K/mm3 (0-0.3); Eosinophils Percent Auto 1.2 % (0-4.4); Hemoglobin 7.7 g/dL (14.0-18.0); Immature Granulocyte Absolute 0.06 K/mm3 (0.00-0.031); Immature Granulocyte Percent A 0.6 % (0-0.5); Lymphocytes Absolute Auto 0.45 K/mm3 (0.9-3.2); Lymphocytes Percent Auto 4.6 % (18.3-44.2); Mean Corpuscular HGB Conc 28.5 g/dl (32-36); Mean Corpuscular Hemoglobin 24.7 pg (26-34); Mean Corpuscular Volume 86.5 fl (80-100); Mean Platelet Volume 10.4 fl (7.4-10.4); Monocytes Absolute Auto 0.4 K/mm3 (0.1-0.6); Monocytes Percent Auto 4.5 % (2.6-8.5); Neutrophils Absolute Auto 8.6 K/mm3 (1.3-6.7); Neutrophils Percent Auto 88.7 % (45.5-73.1); Platelet Count Result 286 k/mm3 (150-375); Red Blood Count 3.12 M/mm3 (4.6-6.20); Red Cell Distribution Width 18.6 % (11.5-14.5); White Blood Count 9.7 K/mm3 (4.5-10.0)
[2023-01-04 11:39] LABS: Glucose Point of Care 160 mg/dl (65-105)
[2023-01-04 12:11] LABS: Platelet Estimate Adequate (Adequate)
[2023-01-04 12:12] LABS: Anisocytosis 1+ (NORMAL); Hypochromasia 1+ (NORMAL); Poikilocytosis 1+ (NORMAL)
[2023-01-04 12:13] LABS: Schistocytes None Seen (NORMAL)
[2023-01-04] MEDS: FERROUS SULFATE 324 MG TABLET PO ×2 (12:34→15:55)
[2023-01-04] MEDS: ISOSORBIDE MONONITRATE 30 MG TAB.ER.24H PO (12:35)
[2023-01-04] MEDS: METOPROLOL TARTRATE 50 MG TAB 100 MG PO ×2 (12:35→21:42)
[2023-01-04 12:50] LABS: Base Excess ABG 3.7 mEq/l (+/-2.0); Fractional Inspired Oxygen 28 %; HCO3 ABG 30.3 mEq/l (22.0-26.0); Oxygen Content ABG 11.6 %vol (16.0-22.0); Oxygen Saturation ABG 93.9 % (95.0-100.0); PCO2 ABG 57.4 mmHg (35.0-45.0); PO2 ABG 74.9 mmHg (80.0-100.0); PO2 FiO2 Ratio Arterial Blood 2.67 %; Total Hemoglobin 8.8 g/dL (12.0-18.0)
[2023-01-04 12:52] LABS: Device NASAL CANNULA; Modified Allen's Test Pass; Site Drawn RIGHT RADIAL
--- NOTE | 2023-01-04 13:32 | P.PNNP_ITS ---
Progress Note: A&P Assessment and Plan (1) JOSE M (acute kidney injury): Code(s): N17.9 - Acute kidney failure, unspecified Status: Acute Assessment and Plan: * due to ongoing attempts at diuresis with high dose diuretics * however, evidence of diuretic resistance noted * evaluation noted: * renal ultrasound normal * urine electrolytes look prerenal (inspite of clear evidence of volume overload) * urine eosinophils negative * serological testing negative to date (JEZ, ANCA, complements, SPEP, UPEP....etc * still making some urine * plan HD tomorrow * follow repeat labs and UOP for potential recovery (2) Chronic kidney disease, stage IV (severe): Code(s): N18.4 - Chronic kidney disease, stage 4 (severe) Status: Chronic Assessment and Plan: * creatinine has been fluctuating ~ 2.0 - 2.5mg/dl since earlier this year * suspected etiology of CKD due to hypertension, diabetes, and vascular disease * however, his CHF and need for diuresis as well as suspected TIERRA likely playing a role (3) CHF (congestive heart failure): Qualifiers: Heart failure chronicity: acute Heart failure type: diastolic Qualified Code(s): I50.31 - Acute diastolic (congestive) heart failure Code(s): I50.9 - Heart failure, unspecified Status: Acute Assessment and Plan: * acute exacerbation * appears to be right sided heart failure + diastolic dysfunction * Echo results noted -- normal LVSF, EF 50-55%, mild TR, no other significant valve pathology * presented with dyspnea on exertion, abdominal distention and scrotal edema * still making urine (on bumex + metolazone) * follow volume status (4) Respiratory failure with hypoxia: Code(s): J96.91 - Respiratory failure, unspecified with hypoxia Status: Acute Assessment and Plan: * multifactorial: * possible COPD * suspected TIERRA/OHS * fluid/volume overload * CHF * anemia * Pulmonary following with recommendations noted * follow respiratory status * continue breathing treatments, diuretics, and dialysis/DUF * repeat thoracentesis tomorrow? * discussed with Dr. Urena -- plan right heart catheterization (5) Hypertension: Qualifiers: Hypertension type: primary hypertension Qualified Code(s): I10 - Essential (primary) hypertension Code(s): I10 - Essential (primary) hypertension Status: Chronic Assessment and Plan: * reasonable control * follow trend of hemodynamics (6) Anemia: Code(s): D64.9 - Anemia, unspecified Status: Chronic Assessment and Plan: * partly due to CKD but worsened by acute illness * on Epogen with dialysis * PRBC transfusion per protocol * follow trend of H/H (7) Diabetes mellitus with chronic kidney disease: Code(s): E11.22 - Type 2 diabetes mellitus with diabetic chronic kidney disease Status: Chronic Assessment and Plan: * follow accuchecks * glycemic control per hospitalists Discussed case with Dr. Sanderson and Dr. Urena. Will continue to follow. Subjective Date/time seen: 01/04/23 13:32 Interval history: Follow-up for acute kidney injury on chronic kidney disease along with volume overload. Tolerated HD on Monday and DUF (dry ultrafiltration) yesterday without any issues or problems; however, despite ongoing fluid removal with dialysis along with diuretics, his respiratory status does not really seem any better as he still complains of shortness of zoila
--- NOTE | 2023-01-04 13:32 | PM.PNNEP ---
Progress Note: A&P Assessment and Plan (1) JOSE M (acute kidney injury): Code(s): N17.9 - Acute kidney failure, unspecified Status: Acute Assessment and Plan: due to ongoing attempts at diuresis with high dose diuretics however, evidence of diuretic resistance noted evaluation noted: renal ultrasound normal urine electrolytes look prerenal (inspite of clear evidence of volume overload) urine eosinophils negative serological testing negative to date (JEZ, ANCA, complements, SPEP, UPEP....etc still making some urine plan HD tomorrow follow repeat labs and UOP for potential recovery (2) Chronic kidney disease, stage IV (severe): Code(s): N18.4 - Chronic kidney disease, stage 4 (severe) Status: Chronic Assessment and Plan: creatinine has been fluctuating ~ 2.0 - 2.5mg/dl since earlier this year suspected etiology of CKD due to hypertension, diabetes, and vascular disease however, his CHF and need for diuresis as well as suspected TIERRA likely playing a role (3) CHF (congestive heart failure): Qualifiers: Heart failure chronicity: acute Heart failure type: diastolic Qualified Code(s): I50.31 - Acute diastolic (congestive) heart failure Code(s): I50.9 - Heart failure, unspecified Status: Acute Assessment and Plan: acute exacerbation appears to be right sided heart failure + diastolic dysfunction Echo results noted -- normal LVSF, EF 50-55%, mild TR, no other significant valve pathology presented with dyspnea on exertion, abdominal distention and scrotal edema still making urine (on bumex + metolazone) follow volume status (4) Respiratory failure with hypoxia: Code(s): J96.91 - Respiratory failure, unspecified with hypoxia Status: Acute Assessment and Plan: multifactorial: possible COPD suspected TIERRA/OHS fluid/volume overload CHF anemia Pulmonary following with recommendations noted follow respiratory status continue breathing treatments, diuretics, and dialysis/DUF repeat thoracentesis tomorrow? discussed with Dr. Urena -- plan right heart catheterization (5) Hypertension: Qualifiers: Hypertension type: primary hypertension Qualified Code(s): I10 - Essential (primary) hypertension Code(s): I10 - Essential (primary) hypertension Status: Chronic Assessment and Plan: reasonable control follow trend of hemodynamics (6) Anemia: Code(s): D64.9 - Anemia, unspecified Status: Chronic Assessment and Plan: partly due to CKD but worsened by acute illness on Epogen with dialysis PRBC transfusion per protocol follow trend of H/H (7) Diabetes mellitus with chronic kidney disease: Code(s): E11.22 - Type 2 diabetes mellitus with diabetic chronic kidney disease Status: Chronic Assessment and Plan: follow accuchecks glycemic control per hospitalists Discussed case with Dr. Sanderson and Dr. Urena. Will continue to follow. Subjective Date/time seen: 01/04/23 13:32 Interval history: Follow-up for acute kidney injury on chronic kidney disease along with volume overload. Tolerated HD on Monday and DUF (dry ultrafiltration) yesterday without any issues or problems; however, despite ongoing fluid removal with dialysis along with diuretics, his respiratory status does not really seem any better as he still complains of shortness of breath and is requiring supplemental oxygen as well intermittent BiPAP therapy. Exam Narrative: General: middle aged male in mild distress Heart: normal S1 and S2; no rub Lungs: coarse and decreased at bases Abdomen: soft, nontender, nondistended, positive bowel sounds Extremities: no cyanosis or clubbing; 1+ edema; s/p right BKA Skin: no rash Objective Data Vital Signs Vital Signs: Vital Signs Temp Pulse Resp BP Pulse Ox O2 Del Method O2 Flow Rate 01/04/23 12:0
--- NOTE | 2023-01-04 14:29 | PM.IMPN ---
Progress Note: A&P Assessment and Plan (1) CHF (congestive heart failure): Qualifiers: Heart failure chronicity: acute Heart failure type: diastolic Qualified Code(s): I50.31 - Acute diastolic (congestive) heart failure Code(s): I50.9 - Heart failure, unspecified Status: Acute Assessment and Plan: Continue beta-alexandra. Patient switched to Bumex for diuresis. patient started on dialysis. nephrology rounding reconsulted cardiology (2) Respiratory failure with hypoxia: Code(s): J96.91 - Respiratory failure, unspecified with hypoxia Status: Acute Assessment and Plan: Appreciate pulmonary input. reconsult pulmonology for further advice pt is on oxygen and BIPAP at night currently Chest x-ray with worsening right-sided pleural effusion. (3) Acute renal failure superimposed on chronic kidney disease: Code(s): N17.9 - Acute kidney failure, unspecified; N18.9 - Chronic kidney disease, unspecified Status: Acute Assessment and Plan: Creatinine worse. patient started on short-term dialysis. tunnel catheter placed by surgery (4) HTN (hypertension): Code(s): I10 - Essential (primary) hypertension Status: Acute Assessment and Plan: Stable (5) Anemia, chronic disease: Code(s): D63.8 - Anemia in other chronic diseases classified elsewhere Status: Acute Assessment and Plan: Stable, follow-up hb is 7 pt to have epogen shot Continue to monitor Hb pt may benefit from blood transfusion if hb drops less than 7 (6) Diabetes: Code(s): E11.9 - Type 2 diabetes mellitus without complications Status: Acute Assessment and Plan: Blood sugars reviewed and adequately controlled (7) Paroxysmal atrial fibrillation: Code(s): I48.0 - Paroxysmal atrial fibrillation Status: Chronic Assessment and Plan: Sinus rhythm. On apixaban. On metoprolol Subjective Date/time seen: 01/04/23 14:29 Interval history: 57-year-old male with insulin-dependent diabetes, coronary artery disease, paroxysmal atrial fibrillation, chronic kidney disease, hypertension, COPD, recently discharged after being treated for left leg cellulitis presented with worsening SOB/leg swelling and scrotal swelling. His scrotal swelling has been to a point where he has pain in scrotal area. Pt still feeling SOB difficulty completing sentences, cardiology on board pt receiving IV BID Pt is a new dialysis patient HB is lower range at 7, pt will get epogen shot D/w with nephrology MD Will reconsult cardiology and pulmonology MD Pt has history of COPD and TIERRA awaiting improvement in respiratory status 01/04/2023: Continues to complain of shortness of breath. Remains on supplemental oxygen. Does not persistently use his BiPAP. Has been getting dialyzed. Last dialysis was yesterday. Also remains on diuretics. Review of Systems Review of Systems: All systems reviewed & are unremarkable except as noted in HPI and below 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 Abdomen protuberant but soft nontender with good bowel sounds no palpable masses Musculoskeletal right BKA as noted Objective Data Vital Signs Vital Signs: Vital Signs - 24 hr 01/03/23 15:31 01/03/23 15:42 01/03/23 14:57 Temperature 97.9 F Pulse Rate 112 H 110 H 112 H Respiratory Rate 22 H 22 H 26 H Blood Pressure 101/68 Pulse Oximetry 95 Oxygen Delivery Oxygen Flow Rate 01/03/23 15:07 01/03/23 15:07 01/03/23 15:20 Temperature Pulse Rate 113 H 113 H Respiratory Rate Blood Pressure 104/67 97/66 L Pulse Oximetry Oxygen Delivery Oxygen Flow Rate 3 01/03/23 15:40 01/03/23 16:00 01/03/23
[2023-01-04] MEDS: BACITRACIN OINTMENT 15 GM TUBE 1 APPLIC TOPICAL ×2 (16:00→21:42)
[2023-01-04] MEDS: TOLNAFTATE 1% POWDER 45 GM BTL 1 APPLIC TOPICAL ×2 (16:00→21:42)
[2023-01-04 16:28] LABS: Glucose Point of Care 144 mg/dl (65-105)
[2023-01-04 21:01] LABS: Glucose Point of Care 121 mg/dl (65-105)
[2023-01-04] MEDS: traZODone HCL 50 MG TABLET 100 MG PO (21:42)
[2023-01-04] MEDS: QUEtiapine FUMARATE 12.5 MG TABLET PO (21:42)
[2023-01-04] MEDS: AMITRIPTYLINE HCL 25 MG TABLET 50 MG PO (21:42)
[2023-01-04] MEDS: ATORVASTATIN 40 MG TABLET PO (21:43)
[2023-01-04] MEDS: INSULIN GLARGINE (*BKC) 100 UNITS/ML 10 UNITS SUB-Q (21:47)
[2023-01-05] VITALS (38 sets, daily range): BP systolic 95–146; BP diastolic 69–88; PULSE 96–116; RESP 14–25; TEMP 35.6–36.9; O2SAT 94–99
[2023-01-05] MEDS: IPRATROPIUM BR 0.02% INH SOLN 0.5 MG/2.5 ML VIAL INHALATION ×4 (01:50→20:17)
[2023-01-05] MEDS: hydrALAZINE HCL 50 MG TABLET 100 MG PO ×3 (05:34→21:14)
[2023-01-05] MEDS: GABAPENTIN 100 MG CAPSULE PO ×3 (05:34→21:14)
[2023-01-05] MEDS: LEVOTHYROXINE SODIUM 100 MCG TABLET PO (05:34)
[2023-01-05] MEDS: traMADol HCL (*CRX) 50 MG TABLET 100 MG PO ×2 (05:45→16:18)
[2023-01-05 06:30] LABS: Basophils Absolute Auto 0.1 K/mm3 (0.0-0.1); Basophils Percent Auto 0.6 % (0.2-1.2); Eosinophils Absolute Auto 0.1 K/mm3 (0-0.3); Eosinophils Percent Auto 1.4 % (0-4.4); Hematocrit 28.1 % (42.0-52.0); Immature Granulocyte Absolute 0.05 K/mm3 (0.00-0.031); Immature Granulocyte Percent A 0.6 % (0-0.5); Lymphocytes Absolute Auto 0.42 K/mm3 (0.9-3.2); Lymphocytes Percent Auto 5.3 % (18.3-44.2); Mean Corpuscular HGB Conc 28.5 g/dl (32-36); Mean Corpuscular Hemoglobin 24.5 pg (26-34); Mean Corpuscular Volume 85.9 fl (80-100); Mean Platelet Volume 10.2 fl (7.4-10.4); Monocytes Absolute Auto 0.5 K/mm3 (0.1-0.6); Monocytes Percent Auto 5.8 % (2.6-8.5); Neutrophils Absolute Auto 6.9 K/mm3 (1.3-6.7); Neutrophils Percent Auto 86.3 % (45.5-73.1); Platelet Count Result 272 k/mm3 (150-375); Red Blood Count 3.27 M/mm3 (4.6-6.20); Red Cell Distribution Width 18.5 % (11.5-14.5)
[2023-01-05 06:45] LABS: Alanine Aminotransferase 13 U/L (6-50); Albumin Level 3.4 g/dL (3.5-5.1); Alkaline Phosphatase 181 U/L (38-126); Anion Gap 9 mmol/L (8-16); Aspartate Amino Transferase 19 U/L (17-59); Bilirubin,Total 0.9 mg/dL (0.2-1.3); Blood Urea Nitrogen 55 mg/dL (9-20); Calcium 8.1 mg/dL (8.4-10.2); Carbon Dioxide 31 mmol/L (22-30); Chloride 96 mmol/L (98-107); Estimated CRCL calculation 18 ml/min; Estimated Glomerular Filt Rate 13; Glucose 95 mg/dL (65-110); Magnesium 2.3 mg/dL (1.6-2.3); Potassium 3.9 mmol/L (3.4-5.0); Sodium 136 mmol/L (137-145)
[2023-01-05 07:15] LABS: Anisocytosis 1+ (NORMAL); Burr Cells 1+ (NORMAL); Hypochromasia 1+ (NORMAL); Ovalocytes 1+ (NORMAL); Platelet Estimate Adequate (Adequate); Poikilocytosis 1+ (NORMAL); Schistocytes Rare (NORMAL)
[2023-01-05 08:06] LABS: Glucose Point of Care 113 mg/dl (65-105)
--- NOTE | 2023-01-05 08:47 | PCRCNOTE ---
0819: placed pt on BIPAP due to increased WOB. Pt belly breathing and looked like he was working hard to get a breath. After placing on BIPAP, pt stopped belly breathing and looked much more comfortable.
--- NOTE | 2023-01-05 09:09 | PM.PNPUL ---
Progress Note: A&P Assessment and Plan (1) CHF (congestive heart failure): Qualifiers: Heart failure chronicity: acute Heart failure type: diastolic Qualified Code(s): I50.31 - Acute diastolic (congestive) heart failure Code(s): I50.9 - Heart failure, unspecified Status: Acute (2) Diabetes: Code(s): E11.9 - Type 2 diabetes mellitus without complications Status: Acute (3) Diabetes mellitus with chronic kidney disease: Code(s): E11.22 - Type 2 diabetes mellitus with diabetic chronic kidney disease Status: Chronic (4) Respiratory failure with hypoxia: Code(s): J96.91 - Respiratory failure, unspecified with hypoxia Status: Acute Assessment and Plan: Patient's respiratory status has been essentially unchanged over the last 10 days. He continues to have right pleural effusion and mild pulmonary congestion despite diuresis with diuretics and fluid removal through dialysis. Pleural fluid analysis showed transudate. His gas exchange is also unchanged with the patient requiring supplemental oxygen via nasal cannula. It appears as though the patient's pleural effusion is persistent despite aggressive diuresis and fluid removal which may indicate severe left ventricular diastolic dysfunction. Respiratory status is entirely contingent upon improvement of left ventricular diastolic dysfunction. Doubt there is lower respiratory tract infection. Case was discussed with hospitalist. He is scheduled to undergo repeat thoracentesis on right. I do not anticipate major improvement of respiratory status post thoracentesis. Plan: Will continue with supportive care, await sputum culture, MRSA screening. (5) Pleural effusion: Code(s): J90 - Pleural effusion, not elsewhere classified Status: Acute (6) Paroxysmal atrial fibrillation: Code(s): I48.0 - Paroxysmal atrial fibrillation Status: Chronic Subjective Date/time seen: 01/05/23 09:09 Interval history: Patient appears more awake this a.m.. Currently on a BiPAP support. Upon questioning he stated he is feeling better today. He has no new respiratory symptoms. Review of Systems Review of Systems: All systems reviewed & are unremarkable except as noted in HPI and below Exam Narrative: GENERAL APPEARANCE: Well developed, well nourished, alert and cooperative, and appears to be in mild respiratory distress while on supplemental oxygen via nasal cannula at 2 liters/minute. HEENT: Sclerae anicteric and conjunctivae pink and moist. Extraocular movements were intact and pupils were equal. Dry oral mucosa NECK: Supple. There was no thyroid enlargement, and no tenderness, or masses were felt. CHEST: Normal AP diameter and normal contour without any kyphoscoliosis. LUNGS: Dullness to percussion at the right base posteriorly, rare rhonchi bilaterally no wheezing CARDIAC: There was a irregular rate and rhythm without any murmurs. ABDOMEN: Soft and nontender with normal bowel sounds. There was no organomegaly. LYMPH NODES: No lymphadenopathy was appreciated in the neck. 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 Normal affect. Objective Data Vital Signs Vital Signs: Vital Signs - 24 hr 01/04/23 12:00 01/04/23 12:35 01/04/23 14:09 Temperature 36.1 C L Pulse Rate 113 H 116 H 113 H Respiratory Rate 20 24 H Blood Pressure 132/71 Pulse Oximetry 96 Oxygen Delivery Oxygen Flow Rate 01/04/23 14:17 01/04/23 12:00 01/04/23 16:00 Temperature 35.6 C L Pulse Rate 113 H 113 H 111 H Respiratory Rate 22 H 32 H 22 H Blood Pressure 132/71 117/86 Pulse Oximetry 92 97 Oxygen Delivery Nasal Cannula Oxygen Flow Rate 2 01/04/23 12:00 01/04/23 16:00 01/04/23 20:00 Temperature 36.9 C Pulse Rate 113 H 112 H 113 H Respiratory Rate 14 Blood Pressure 126/72 Pulse Oximetry 97 Oxygen Delivery Oxygen Flow Rate 01/04/23 21:
--- NOTE | 2023-01-05 11:09 | PC.NURSE ---
Patient in dialysis at 09:00. Medications will be administered as appropriate after dialysis is completed.
[2023-01-05] MEDS: EPOETIN ALFA-EPBX 10,000 UNITS/ML VIAL 10000 UNITS IV PUSH (11:51)
--- NOTE | 2023-01-05 12:04 | P.PNNP_ITS ---
Progress Note: A&P Assessment and Plan (1) JOSE M (acute kidney injury): Code(s): N17.9 - Acute kidney failure, unspecified Status: Acute Assessment and Plan: * due to ongoing attempts at diuresis with high dose diuretics * however, evidence of diuretic resistance noted * evaluation noted: * renal ultrasound normal * urine electrolytes look prerenal (inspite of clear evidence of volume overload) * urine eosinophils negative * serological testing negative to date (JEZ, ANCA, complements, SPEP, UPEP....etc * still making some urine * HD today * follow repeat labs and UOP for potential recovery (2) Chronic kidney disease, stage IV (severe): Code(s): N18.4 - Chronic kidney disease, stage 4 (severe) Status: Chronic Assessment and Plan: * creatinine has been fluctuating ~ 2.0 - 2.5mg/dl since earlier this year * suspected etiology of CKD due to hypertension, diabetes, and vascular disease * however, his CHF and need for diuresis as well as suspected TIERRA likely playing a role (3) CHF (congestive heart failure): Qualifiers: Heart failure chronicity: acute Heart failure type: diastolic Qualified Code(s): I50.31 - Acute diastolic (congestive) heart failure Code(s): I50.9 - Heart failure, unspecified Status: Acute Assessment and Plan: * acute exacerbation * appears to be right sided heart failure + diastolic dysfunction * Echo results noted -- normal LVSF, EF 50-55%, mild TR, no other significant valve pathology * presented with dyspnea on exertion, abdominal distention and scrotal edema * still making some urine (on bumex + metolazone) * follow volume status (4) Respiratory failure with hypoxia: Code(s): J96.91 - Respiratory failure, unspecified with hypoxia Status: Acute Assessment and Plan: * multifactorial: * possible COPD * suspected TIERRA/OHS * fluid/volume overload * CHF * anemia * Pulmonary following with recommendations noted * follow respiratory status * continue breathing treatments, diuretics, and dialysis/DUF * paln repeat thoracentesis today * discussed with Dr. Urena yesterday -- plan right heart catheterization tomorrow (5) Hypertension: Qualifiers: Hypertension type: primary hypertension Qualified Code(s): I10 - Essential (primary) hypertension Code(s): I10 - Essential (primary) hypertension Status: Chronic Assessment and Plan: * reasonable control * follow trend of hemodynamics (6) Anemia: Code(s): D64.9 - Anemia, unspecified Status: Chronic Assessment and Plan: * partly due to CKD but worsened by acute illness * on Epogen with dialysis * PRBC transfusion per protocol * follow trend of H/H (7) Diabetes mellitus with chronic kidney disease: Code(s): E11.22 - Type 2 diabetes mellitus with diabetic chronic kidney disease Status: Chronic Assessment and Plan: * follow accuchecks * glycemic control per hospitalists Will continue to follow. Subjective Date/time seen: 01/05/23 12:04 Interval history: Follow-up for acute kidney injury on chronic kidney disease along with volume overload. Tolerating hemodialysis treatment at the time of my visit (seen on HD at 11:45AM); respiratory status seems the same/unchanged although he reports some minor improvement in his breathing currently; no other acute issues/events at this time. Exam Narrative: Gen
--- NOTE | 2023-01-05 12:04 | PM.PNNEP ---
Progress Note: A&P Assessment and Plan (1) JOSE M (acute kidney injury): Code(s): N17.9 - Acute kidney failure, unspecified Status: Acute Assessment and Plan: due to ongoing attempts at diuresis with high dose diuretics however, evidence of diuretic resistance noted evaluation noted: renal ultrasound normal urine electrolytes look prerenal (inspite of clear evidence of volume overload) urine eosinophils negative serological testing negative to date (JEZ, ANCA, complements, SPEP, UPEP....etc still making some urine HD today follow repeat labs and UOP for potential recovery (2) Chronic kidney disease, stage IV (severe): Code(s): N18.4 - Chronic kidney disease, stage 4 (severe) Status: Chronic Assessment and Plan: creatinine has been fluctuating ~ 2.0 - 2.5mg/dl since earlier this year suspected etiology of CKD due to hypertension, diabetes, and vascular disease however, his CHF and need for diuresis as well as suspected TIERRA likely playing a role (3) CHF (congestive heart failure): Qualifiers: Heart failure chronicity: acute Heart failure type: diastolic Qualified Code(s): I50.31 - Acute diastolic (congestive) heart failure Code(s): I50.9 - Heart failure, unspecified Status: Acute Assessment and Plan: acute exacerbation appears to be right sided heart failure + diastolic dysfunction Echo results noted -- normal LVSF, EF 50-55%, mild TR, no other significant valve pathology presented with dyspnea on exertion, abdominal distention and scrotal edema still making some urine (on bumex + metolazone) follow volume status (4) Respiratory failure with hypoxia: Code(s): J96.91 - Respiratory failure, unspecified with hypoxia Status: Acute Assessment and Plan: multifactorial: possible COPD suspected TIERRA/OHS fluid/volume overload CHF anemia Pulmonary following with recommendations noted follow respiratory status continue breathing treatments, diuretics, and dialysis/DUF paln repeat thoracentesis today discussed with Dr. Urena yesterday -- plan right heart catheterization tomorrow (5) Hypertension: Qualifiers: Hypertension type: primary hypertension Qualified Code(s): I10 - Essential (primary) hypertension Code(s): I10 - Essential (primary) hypertension Status: Chronic Assessment and Plan: reasonable control follow trend of hemodynamics (6) Anemia: Code(s): D64.9 - Anemia, unspecified Status: Chronic Assessment and Plan: partly due to CKD but worsened by acute illness on Epogen with dialysis PRBC transfusion per protocol follow trend of H/H (7) Diabetes mellitus with chronic kidney disease: Code(s): E11.22 - Type 2 diabetes mellitus with diabetic chronic kidney disease Status: Chronic Assessment and Plan: follow accuchecks glycemic control per hospitalists Will continue to follow. Subjective Date/time seen: 01/05/23 12:04 Interval history: Follow-up for acute kidney injury on chronic kidney disease along with volume overload. Tolerating hemodialysis treatment at the time of my visit (seen on HD at 11:45AM); respiratory status seems the same/unchanged although he reports some minor improvement in his breathing currently; no other acute issues/events at this time. Exam Narrative: General: middle aged male laying in bed in NAD Heart: normal S1 and S2; no rub Lungs: coarse and decreased at bases Abdomen: soft, nontender, nondistended, positive bowel sounds Extremities: no cyanosis or clubbing; 1+ edema; s/p right BKA Skin: no nodules Objective Data Vital Signs Vital Signs: Vital Signs Temp Pulse Resp BP Pulse Ox O2 Del Method O2 Flow Rate 01/05/23 12:00 106 H 98/82 L 01/05/23 08:00 96 Nasal Cannula 2 01/05/23 11:26 111 H 110/75 96 01/05/23 11:40 109 H
[2023-01-05 12:48] LABS: Hepatitis B Core Ab Total Nonreactive (Nonreactive)
--- NOTE | 2023-01-05 14:04 | PM.PNCARD ---
Progress Note: A&P Assessment and Plan (1) Respiratory failure with hypoxia: Code(s): J96.91 - Respiratory failure, unspecified with hypoxia Status: Acute (2) CHF (congestive heart failure): Qualifiers: Heart failure chronicity: acute Heart failure type: diastolic Qualified Code(s): I50.31 - Acute diastolic (congestive) heart failure Code(s): I50.9 - Heart failure, unspecified Status: Acute (3) Paroxysmal atrial fibrillation: Code(s): I48.0 - Paroxysmal atrial fibrillation Status: Chronic Plan Patient with chronic AF with heart failure with preserved ejection fraction. Started dialysis 12/30/2022 and has had minimal improvement in his respiratory status despite being on dialysis. CXR still with diffuse bilateral airspace disease, and doesn't appear to have improved despite adequate volume removal through dialysis + diuretics. To get a better idea of his volume status, will plan for RHC 01/06. Discussed the procedure with the patient, including procedure details, risks vs benefits, and he is agreeable. Patient is currently DNR, but he agrees to be Full Code for the procedure. Last dose of Eliquis was 5/17AM, continue to hold Eliquis for procedure. Patient to be NPO after midnight. Subjective Date/time seen: 01/05/23 14:04 Interval history: Reason for visit: Decompensated heart failure, atrial flutter HPI: Patient is a 57-year-old male who has a history of coronary disease.? Details are not known.? He follows with [facility].? He has had progressive lower extremity and scrotal edema as well as worsening shortness of breath over the past several months.? Symptoms worsened to the point that his testicles and foreskin were swollen and painful and decided to come to the hospital for further evaluation.? He was started on IV diuretics and was found to be in volume overload and is already feeling a little bit better with less swelling and less shortness of breath.? He does describe some orthopnea.? No chest pain.? No syncope, presyncope, paroxysmal nocturnal dyspnea.? Does have occasional palpitations.? He was recently admitted to this hospital for treatment of cellulitis. 12/16: Continues to complain of shortness of breath today.? Does not think his breathing has improved any since yesterday.? Has shortness of breath with minimal exertion.? No chest pain, palpitations. 12/17: Feeling better. No new complaints this morning. 12/18: Diuresing well. No shortness of breath. Lower extremity edema significantly improved. Per discussion with RN, cannot wean off oxygen. Patient was not on home oxygen. Desats quickly without supplemental oxygen. 12/19/2022: Complaining of pain in his neck, back, and buttocks from lying in bed for several days. He continues to become short of breath with minimal activity such as moving around in bed. Unable to wean O2. 12/20/2022: He is feeling better today. Breathing is better. He denies any chest pain. His neck and back pain have resolved. 12/21/2022: Patient sleeping, somewhat lethargic but arousable states his breathing was a little better, denied pain. Patient is status post right thoracentesis with 1 L fluid removal earlier today. Decreasing O2 requirement. Patient remains in atrial flutter with controlled rate variable AV block on telemetry. Date of service 12/22/2022: Patient feels much better much less short of breath. Denies chest pain or palpitations. Sleeping better. No other complaints. Afebrile. Remains in atrial flutter variable AV block. Labs not reported yet this morning. Date of service 12/27/2022: Has increased shortness of breath this evening after receiving blood transfusion. No other complaints. Date of service 12/30/2022: Patient having worsening dyspnea last night and again this morning. Plans are in place for this afternoon to place a dialysis catheter and [place] hope what is hopefully temporary hemodialysis later today. [place]
--- NOTE | 2023-01-05 14:24 | PC.NURSE ---
Patient back from dialysis
[2023-01-05] MEDS: ALBUTEROL SULFATE NEB 2.5 MG/3 ML INH INHALATION (14:45)
--- NOTE | 2023-01-05 15:10 | PC.NURSE ---
Patient to ultrasound for thoracentesis via stretcher.
--- NOTE | 2023-01-05 15:49 | PC.NURSE ---
Patient back from ultrasound.
[2023-01-05] MEDS: FERROUS SULFATE 324 MG TABLET PO (16:01)
[2023-01-05] MEDS: busPIRone HCL 5 MG TABLET PO (16:02)
[2023-01-05] MEDS: busPIRone HCL 10 MG TABLET PO (16:02)
[2023-01-05] MEDS: polyethylene glycoL 3350 17 GM POWD.PACK PO (16:02)
[2023-01-05] MEDS: ISOSORBIDE MONONITRATE 30 MG TAB.ER.24H PO (16:03)
[2023-01-05] MEDS: BACITRACIN OINTMENT 15 GM TUBE 1 APPLIC TOPICAL ×2 (16:03→21:14)
[2023-01-05] MEDS: ASCORBIC ACID 500 MG TABLET PO (16:03)
[2023-01-05] MEDS: TOLNAFTATE 1% POWDER 45 GM BTL 1 APPLIC TOPICAL ×2 (16:05→21:13)
--- NOTE | 2023-01-05 16:09 | PM.IMPN ---
Progress Note: A&P Assessment and Plan (1) CHF (congestive heart failure): Qualifiers: Heart failure chronicity: acute Heart failure type: diastolic Qualified Code(s): I50.31 - Acute diastolic (congestive) heart failure Code(s): I50.9 - Heart failure, unspecified Status: Acute Assessment and Plan: Continue beta-alexandra. Patient switched to Bumex for diuresis. patient started on dialysis. nephrology rounding reconsulted cardiology still ongoing bilateral pleural effusion right worse than left. Re tap today will send for pleural fluid analysis Plan for right heart catheterization in a.m. (2) Respiratory failure with hypoxia: Code(s): J96.91 - Respiratory failure, unspecified with hypoxia Status: Acute Assessment and Plan: Appreciate pulmonary input. reconsult pulmonology for further advice pt is on oxygen and BIPAP at night currently Chest x-ray with worsening right-sided pleural effusion. Reached thoracentesis again today 01/05/2023. (3) Acute renal failure superimposed on chronic kidney disease: Code(s): N17.9 - Acute kidney failure, unspecified; N18.9 - Chronic kidney disease, unspecified Status: Acute Assessment and Plan: Creatinine worse. patient started on short-term dialysis. tunnel catheter placed by surgery (4) HTN (hypertension): Code(s): I10 - Essential (primary) hypertension Status: Acute Assessment and Plan: Stable (5) Anemia, chronic disease: Code(s): D63.8 - Anemia in other chronic diseases classified elsewhere Status: Acute Assessment and Plan: Stable, follow-up hb is 7 pt to have epogen shot Continue to monitor Hb pt may benefit from blood transfusion if hb drops less than 7 (6) Diabetes: Code(s): E11.9 - Type 2 diabetes mellitus without complications Status: Acute Assessment and Plan: Blood sugars reviewed and adequately controlled (7) Paroxysmal atrial fibrillation: Code(s): I48.0 - Paroxysmal atrial fibrillation Status: Chronic Assessment and Plan: Sinus rhythm. On apixaban. On metoprolol . Rate not controlled Will add amiodarone for adequate rate control Discussed with Cardiology Subjective Date/time seen: 01/05/23 16:09 Interval history: Seen during the dialysis today breathing about the same. Discussed with the vice president investor relations. Heart rate in low 100s. Discussed with Pulmonary. Review of Systems Review of Systems: All systems reviewed & are unremarkable except as noted in HPI and below 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 Abdomen protuberant but soft nontender with good bowel sounds no palpable masses Musculoskeletal right BKA as noted Objective Data Vital Signs Vital Signs: Vital Signs - 24 hr 01/04/23 20:00 01/04/23 21:17 01/04/23 21:18 Temperature 98.5 F Pulse Rate 113 H 112 H 112 H Respiratory Rate 14 24 H Blood Pressure 126/72 Pulse Oximetry 97 95 Oxygen Delivery Nasal Cannula Oxygen Flow Rate 2 01/04/23 21:42 01/05/23 00:00 01/04/23 20:00 Temperature 97.9 F Pulse Rate 111 H 110 H Respiratory Rate 17 Blood Pressure 116/69 Pulse Oximetry 96 95 Oxygen Delivery Nasal Cannula Oxygen Flow Rate 2 01/04/23 20:00 01/05/23 00:00 01/05/23 01:50 Temperature Pulse Rate 123 H 109 H 106 H Respiratory Rate 22 H Blood Pressure Pulse Oximetry Oxygen Delivery Oxygen Flow Rate 01/05/23 03:45 01/05/23 02:05 01/04/23 21:35 Temperature 96.9 F L Pulse Rate 105 H 113 H 108 H Respiratory Rate 14 22 H 22 H Blood Pressure 122/81 Pulse Oximetry 99 Oxygen Delivery Oxygen Flow Rate 01/05/23 04:00 01/05/23 08:07
[2023-01-05] MEDS: BUMETANIDE INJ 2.5 MG/10 ML VIAL 2 MG IV PUSH (16:20)
[2023-01-05] MEDS: metOLazone 5 MG TABLET 10 MG PO (16:20)
--- NOTE | 2023-01-05 16:52 | PCPTNOTE ---
The patient treatment was not able to be completed due to patient out of room for dialysis and then testing when PT attempted. Will plan to continue treatment per plan of care.
[2023-01-05 16:53] LABS: Glucose Point of Care 113 mg/dl (65-105)
[2023-01-05] MEDS: AMIODARONE HCL 200 MG TABLET 400 MG PO (17:14)
[2023-01-05] MEDS: INSULIN GLARGINE (*BKC) 100 UNITS/ML 10 UNITS SUB-Q (20:42)
[2023-01-05 20:45] LABS: Glucose Point of Care 128 mg/dl (65-105)
[2023-01-05] MEDS: traZODone HCL 50 MG TABLET 100 MG PO (21:13)
[2023-01-05] MEDS: PANTOPRAZOLE SODIUM IV 40 MG VIAL IV PUSH (21:13)
[2023-01-05] MEDS: FLUTICASONE PROPIONATE 0.05% NA SPR 16 GM BTL (*BKC) 1 SPRAY NASAL (21:14)
[2023-01-05] MEDS: FAMOTIDINE 20 MG TABLET PO (21:14)
[2023-01-05] MEDS: METOPROLOL TARTRATE 50 MG TAB 100 MG PO (21:14)
[2023-01-05] MEDS: QUEtiapine FUMARATE 12.5 MG TABLET PO (21:14)
[2023-01-05] MEDS: ATORVASTATIN 40 MG TABLET PO (21:14)
[2023-01-05] MEDS: AMITRIPTYLINE HCL 25 MG TABLET 50 MG PO (21:14)
[2023-01-06] VITALS (20 sets, daily range): BP systolic 105–128; BP diastolic 71–98; PULSE 91–115; RESP 16–28; TEMP 35.7–36.9; O2SAT 92–100
[2023-01-06] MEDS: IPRATROPIUM BR 0.02% INH SOLN 0.5 MG/2.5 ML VIAL INHALATION ×4 (02:04→21:24)
[2023-01-06] MEDS: hydrALAZINE HCL 50 MG TABLET 100 MG PO ×2 (05:12→21:03)
[2023-01-06] MEDS: LEVOTHYROXINE SODIUM 100 MCG TABLET PO (05:12)
[2023-01-06] MEDS: GABAPENTIN 100 MG CAPSULE PO ×3 (05:12→21:03)
[2023-01-06 06:21] LABS: Basophils Percent Auto 0.5 % (0.2-1.2); Eosinophils Absolute Auto 0.1 K/mm3 (0-0.3); Eosinophils Percent Auto 1.1 % (0-4.4); Hematocrit 26.9 % (42.0-52.0); Hemoglobin 7.8 g/dL (14.0-18.0); Immature Granulocyte Absolute 0.04 K/mm3 (0.00-0.031); Immature Granulocyte Percent A 0.5 % (0-0.5); Lymphocytes Absolute Auto 0.41 K/mm3 (0.9-3.2); Lymphocytes Percent Auto 5.5 % (18.3-44.2); Mean Corpuscular Hemoglobin 24.5 pg (26-34); Mean Corpuscular Volume 84.3 fl (80-100); Mean Platelet Volume 9.8 fl (7.4-10.4); Monocytes Absolute Auto 0.5 K/mm3 (0.1-0.6); Neutrophils Absolute Auto 6.5 K/mm3 (1.3-6.7); Neutrophils Percent Auto 86.4 % (45.5-73.1); Platelet Count Result 266 k/mm3 (150-375); Red Blood Count 3.19 M/mm3 (4.6-6.20); Red Cell Distribution Width 18.5 % (11.5-14.5); White Blood Count 7.5 K/mm3 (4.5-10.0)
[2023-01-06 06:33] LABS: Alanine Aminotransferase 12 U/L (6-50); Albumin Level 3.1 g/dL (3.5-5.1); Alkaline Phosphatase 168 U/L (38-126); Anion Gap 5 mmol/L (8-16); Aspartate Amino Transferase 19 U/L (17-59); Bilirubin,Total 0.8 mg/dL (0.2-1.3); Blood Urea Nitrogen 34 mg/dL (9-20); Carbon Dioxide 32 mmol/L (22-30); Chloride 103 mmol/L (98-107); Estimated CRCL calculation 24 ml/min; Estimated Glomerular Filt Rate 19; Glucose 54 mg/dL (65-110); Magnesium 2.2 mg/dL (1.6-2.3); Potassium 3.7 mmol/L (3.4-5.0); Sodium 140 mmol/L (137-145)
[2023-01-06] MEDS: DEXTROSE 50% 25 GM/50 ML SYRINGE IV PUSH (06:37)
[2023-01-06 06:54] LABS: Glucose Point of Care 57 mg/dl (65-105)
[2023-01-06 06:54] LABS: Glucose Point of Care 119 mg/dl (65-105)
[2023-01-06 07:22] LABS: Hypochromasia 1+ (NORMAL); Platelet Estimate Adequate (Adequate)
[2023-01-06 07:23] LABS: Schistocytes None Seen (NORMAL)
[2023-01-06 07:29] LABS: Glucose Point of Care 104 mg/dl (65-105)
[2023-01-06] MEDS: METOPROLOL TARTRATE 50 MG TAB 100 MG PO ×2 (09:00→21:03)
[2023-01-06] MEDS: PANTOPRAZOLE SODIUM IV 40 MG VIAL IV PUSH ×2 (09:00→21:03)
[2023-01-06] MEDS: ISOSORBIDE MONONITRATE 30 MG TAB.ER.24H PO (09:00)
[2023-01-06] MEDS: busPIRone HCL 5 MG TABLET PO ×2 (09:01→17:46)
[2023-01-06] MEDS: busPIRone HCL 10 MG TABLET PO ×2 (09:01→17:46)
[2023-01-06] MEDS: BUMETANIDE INJ 2.5 MG/10 ML VIAL 2 MG IV PUSH ×2 (09:01→17:48)
[2023-01-06] MEDS: traMADol HCL (*CRX) 50 MG TABLET 100 MG PO ×2 (09:09→21:02)
[2023-01-06 10:19] LABS: Glucose Point of Care 72 mg/dl (65-105)
--- NOTE | 2023-01-06 10:53 | WPDMODSED ---
Moderate Sedation Note-Pt Data Patient Data Diagnosis: chronic atrial fibrillation diastolic heart failure end-stage renal disease on dialysis desire to assess volume status Present Complaint: dyspnea Procedure to be performed/Plan: right heart catheterization Allergies Allergy/AdvReac Type Severity Reaction Status Date / Time No Known Allergies Allergy Verified 12/15/22 08:36 Home Medications Medication Instructions Recorded Confirmed Type Saccharomyces boulardii 250 mg 250 mg PO DAILY 11/22/22 12/15/22 History capsule (Florastor) amitriptyline 50 mg tablet 50 mg PO QHS 11/22/22 12/15/22 History apixaban 5 mg tablet (Eliquis) 5 mg PO BID 11/22/22 12/15/22 History aspirin 81 mg tablet,delayed 81 mg PO DAILY 11/22/22 12/15/22 History release (Adult Low Dose Aspirin) atorvastatin 40 mg tablet (Lipitor) 40 mg PO QHS 11/22/22 12/15/22 History benzonatate 100 mg capsule 100 mg PO TID PRN Cough 11/22/22 12/15/22 History buspirone 15 mg tablet 15 mg PO TID 11/22/22 12/15/22 History famotidine 20 mg tablet 20 mg PO Q12H 11/22/22 12/15/22 History ferrous sulfate 325 mg (65 mg 325 mg PO BID 11/22/22 12/15/22 History iron) tablet,delayed release fluticasone propionate 110 1 puff inhalation Q12H 11/22/22 12/15/22 History mcg/actuation HFA aerosol inhaler furosemide 40 mg tablet 40 mg PO QAM 11/22/22 12/15/22 History gabapentin 100 mg capsule 100 mg PO Q8H 11/22/22 12/15/22 History guaifenesin 100 mg/5 mL oral liquid 200 mg PO Q6H PRN Cough 11/22/22 12/15/22 History hydralazine 25 mg tablet 75 mg PO Q8H 11/22/22 12/15/22 History ipratropium 0.5 mg-albuterol 3 mg 3 ml inhalation Q6H PRN Shortness 11/22/22 12/15/22 History (2.5 mg base)/3 mL nebulization Of Breath soln isosorbide dinitrate 30 mg tablet 30 mg PO DAILY 11/22/22 12/15/22 History losartan 50 mg tablet 50 mg PO DAILY 11/22/22 12/15/22 History metoclopramide HCl 5 mg tablet 5 mg PO AC 11/22/22 12/15/22 History metolazone 5 mg tablet 5 mg PO DAILY 11/22/22 12/15/22 History metoprolol tartrate 50 mg tablet 50 mg PO BID 11/22/22 12/15/22 History pyridoxine (vitamin B6) 50 mg 50 mg PO DAILY 11/22/22 12/15/22 History tablet sennosides 8.6 mg-docusate sodium 1 tab-cap PO BID 11/22/22 12/15/22 History 50 mg capsule (Senna Plus) tiotropium bromide 18 mcg capsule 1 cap inhalation DAILY 11/22/22 12/15/22 History with inhalation device (Spiriva with HandiHaler) trazodone 100 mg tablet 100 mg PO QHS 11/22/22 12/15/22 History umeclidinium 62.5 mcg-vilanterol 1 inh inhalation DAILY 11/22/22 12/15/22 History 25 mcg/actuation powdr for inhalation (Anoro Ellipta) ascorbic acid (vitamin C) 500 mg 500 mg PO DAILY #30 tabs 11/29/22 12/15/22 Rx tablet (Vitamin C) fluticasone propionate 50 1 spray intranasal Q12HR #16 grams 11/29/22 12/15/22 Rx mcg/actuation nasal spray,suspension foam bandage 4 X 4 (Mepilex) #5 ea 11/29/22 12/15/22 Rx levothyroxine 100 mcg tablet 100 mcg PO DAILY@0630 #30 tabs 11/29/22 12/15/22 Rx (Synthroid) tramadol 50 mg tablet 50 mg PO Q6H PRN Pain #5 tabs 11/29/22 12/15/22 Rx clopidogrel 75 mg tablet 75 mg PO DAILY 12/15/22 12/15/22 History dulaglutide 0.75 mg/0.5 mL 0.75 mg subcut WEEKLY 12/15/22 12/15/22 History subcutaneous pen injector (Trulicity) insulin glargine 100 unit/mL 10 unit subcut HS 12/15/22 12/15/22 History subcutaneous solution (Lantus U-100 Insulin) insulin lispro 100 unit/mL 10 unit subcut AC 12/15/22 12/15/22 History subcutaneous solution (Admelog U-100 Insulin lispro) Current Medications: Active Medications Acetaminophen (Acetaminophen 325 Mg Tablet) 650 mg PO Q6H PRN PRN Reason: pain 1-3 Albuterol (Albuterol Sulfate Neb 2.5 Mg/3 Ml Inh) 2.5 mg INHALATION Q6HRT PRN PRN Reason: sob Last Admin: 01/05/23 14:45 Dose: 2.5 mg Amiodarone HCl (Amiodarone Hcl 200 Mg Tablet) 400 mg PO TID [facility] Last Admin: 01/05/23 17:14 Dose: 400 mg Amitriptyline HCl (Amitr
--- NOTE | 2023-01-06 10:59 | PCPTNOTE ---
The patient treatment was not able to be completed due to patient out of room for cardiac cath. Will plan to continue treatment per plan of care.
--- NOTE | 2023-01-06 11:21 | WPDCARDPROC ---
Cardiac Cath Procedure Note Date of procedure:: 01/06/23 Performing physician:: Chepe Haines MD Indication:: chronic atrial fibrillation end-stage renal disease congestive heart failure /diastolic dysfunction Brief clinical history:: this is a 57-year-old man with diastolic dysfunction chronic atrial fibrillation end-stage renal disease now receiving hemodialysis. Because of failure respiratory status to improve with dialysis right heart catheterization has been recommended to document his volume status. Procedure Procedure performed:: Right heart catheterization Sedation/Medication given:: no sedation case start time 10:58 a.m. case end time 11:18 a.m. Access site:: right femoral vein Estimated blood loss:: minimal Procedure note:: patient was brought to the cardiac catheterization lab in the postabsorptive state the right femoral triangle was prepared and draped in the usual fashion. 1% lidocaine infiltrated locally. Using the modified Seldinger technique femoral vein was punctured and a 7 Polish vascular sheath was placed. After this I used a balloon tip Fine-Armando catheter to perform right heart catheterization. Patient is receiving oxygen per nasal cannula and so saturations were not performed. Following right heart catheterization and thermodilution cardiac output measurement the Fine-Armando catheter was removed the sheath is removed in the senior label specialist with manual pressure over the venous puncture site. Procedure was well tolerated and uncomplicated. Findings:: Mean right atrial pressure is 18 mmHg. right ventricle 65 over 12. pulmonary artery pressure 65 over 32. Pulmonary capillary wedge pressure 24 mmHg. V-wave to 37. Thermodilution cardiac output averaged 4.8 liters/minute. cardiac index is 2.2. Conclusion:: Right heart catheterization data indicates high right and left-sided filling pressures, significant pulmonary hypertension and preserved cardiac output. Patient would benefit from more aggressive volume removal according to these data Chepe Haines MD [facility]
--- NOTE | 2023-01-06 11:35 | PM.IMPN ---
Progress Note: A&P Assessment and Plan (1) CHF (congestive heart failure): Qualifiers: Heart failure chronicity: acute Heart failure type: diastolic Qualified Code(s): I50.31 - Acute diastolic (congestive) heart failure Code(s): I50.9 - Heart failure, unspecified Status: Acute Assessment and Plan: Continue beta-alexandra. Patient switched to Bumex for diuresis. patient started on dialysis. nephrology rounding reconsulted cardiology still ongoing bilateral pleural effusion right worse than left. Re tap today will send for pleural fluid analysis Plan for right heart catheterization in a.m. (2) Respiratory failure with hypoxia: Code(s): J96.91 - Respiratory failure, unspecified with hypoxia Status: Acute Assessment and Plan: Appreciate pulmonary input. reconsult pulmonology for further advice pt is on oxygen and BIPAP at night currently Chest x-ray with worsening right-sided pleural effusion. Reached thoracentesis again today 01/05/2023. (3) Acute renal failure superimposed on chronic kidney disease: Code(s): N17.9 - Acute kidney failure, unspecified; N18.9 - Chronic kidney disease, unspecified Status: Acute Assessment and Plan: Creatinine worse. patient started on short-term dialysis. tunnel catheter placed by surgery (4) HTN (hypertension): Code(s): I10 - Essential (primary) hypertension Status: Acute Assessment and Plan: Stable (5) Anemia, chronic disease: Code(s): D63.8 - Anemia in other chronic diseases classified elsewhere Status: Acute Assessment and Plan: Stable, follow-up hb is 7 pt to have epogen shot Continue to monitor Hb pt may benefit from blood transfusion if hb drops less than 7 (6) Diabetes: Code(s): E11.9 - Type 2 diabetes mellitus without complications Status: Acute Assessment and Plan: Blood sugars reviewed and adequately controlled (7) Paroxysmal atrial fibrillation: Code(s): I48.0 - Paroxysmal atrial fibrillation Status: Chronic Assessment and Plan: Sinus rhythm. On apixaban. On metoprolol . Rate not controlled Will add amiodarone for adequate rate control Discussed with Cardiology Subjective Date/time seen: 01/06/23 11:35 Interval history: no new complaints. 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 Abdomen protuberant but soft nontender with good bowel sounds no palpable masses Musculoskeletal right BKA as noted Objective Data Vital Signs Vital Signs: Vital Signs - 24 hr 01/05/23 11:40 01/05/23 12:00 01/05/23 12:20 Temperature Pulse Rate 109 H 106 H 109 H Respiratory Rate Blood Pressure 109/76 98/82 L 119/86 Pulse Oximetry Oxygen Delivery Oxygen Flow Rate 01/05/23 12:40 01/05/23 14:24 01/05/23 14:47 Temperature 97.9 F Pulse Rate 113 H 115 H 114 H Respiratory Rate 22 H 22 H Blood Pressure 95/74 L 130/81 Pulse Oximetry 98 Oxygen Delivery Oxygen Flow Rate 01/05/23 14:56 01/05/23 15:59 01/05/23 13:00 Temperature 97.3 F L Pulse Rate 114 H 114 H 113 H Respiratory Rate 22 H 20 Blood Pressure 146/88 H 121/82 Pulse Oximetry 95 Oxygen Delivery Oxygen Flow Rate 01/05/23 13:20 01/05/23 13:40 01/05/23 13:52 Temperature Pulse Rate 108 H 113 H 112 H Respiratory Rate Blood Pressure 104/70 105/82 108/86 Pulse Oximetry Oxygen Delivery Oxygen Flow Rate 01/05/23 13:58 01/05/23 17:14 01/05/23 16:00 Temperature 98.0 F Pulse Rate 111 H 114 H 115 H Respiratory Rate 24 H Blood Pressure 117/84 Pulse Oximetry 94 Oxygen Delivery Oxygen Flow Rate 01/05/23 20:17 01/05/23 20:17 01/05/23 20:23 Temperat
--- NOTE | 2023-01-06 11:59 | P.PNNP_ITS ---
Progress Note: A&P Assessment and Plan (1) JOSE M (acute kidney injury): Code(s): N17.9 - Acute kidney failure, unspecified Status: Acute Assessment and Plan: * due to ongoing attempts at diuresis with high dose diuretics * however, evidence of diuretic resistance noted * evaluation noted: * renal ultrasound normal * urine electrolytes look prerenal (inspite of clear evidence of volume overload) * urine eosinophils negative * serological testing negative to date (JEZ, ANCA, complements, SPEP, UPEP....etc * still making some urine * HD tomorrow * given necessity of dialysis for ongoing optimization of his fluid status, the patient will likely need outpatient dialysis on discharge * follow repeat labs and UOP for potential recovery (2) Chronic kidney disease, stage IV (severe): Code(s): N18.4 - Chronic kidney disease, stage 4 (severe) Status: Chronic Assessment and Plan: * creatinine has been fluctuating ~ 2.0 - 2.5mg/dl since earlier this year * suspected etiology of CKD due to hypertension, diabetes, and vascular disease * however, his CHF and need for diuresis as well as suspected TIERRA likely playing a role (3) CHF (congestive heart failure): Qualifiers: Heart failure chronicity: acute Heart failure type: diastolic Qualified Code(s): I50.31 - Acute diastolic (congestive) heart failure Code(s): I50.9 - Heart failure, unspecified Status: Acute Assessment and Plan: * acute exacerbation * appears to be right sided heart failure + diastolic dysfunction * Echo results noted -- normal LVSF, EF 50-55%, mild TR, no other significant valve pathology * presented with dyspnea on exertion, abdominal distention and scrotal edema * still making some urine (on diuretics) but not very much * follow volume status * continue fluid removal with HD (4) Respiratory failure with hypoxia: Code(s): J96.91 - Respiratory failure, unspecified with hypoxia Status: Acute Assessment and Plan: * multifactorial: * possible COPD * suspected TIERRA/OHS * fluid/volume overload * CHF * anemia * Pulmonary following with recommendations noted * follow respiratory status * continue breathing treatments, diuretics, and dialysis/DUF * s/p repeat right horacentesis on 01/05/23 * s/p right heart catheterization today with results noted * continue to push fluid removal as tolerated with dialysis * however, he is already 31L negative since admission! (5) Hypertension: Qualifiers: Hypertension type: primary hypertension Qualified Code(s): I10 - Essential (primary) hypertension Code(s): I10 - Essential (primary) hypertension Status: Chronic Assessment and Plan: * reasonable control * follow trend of hemodynamics (6) Anemia: Code(s): D64.9 - Anemia, unspecified Status: Chronic Assessment and Plan: * partly due to CKD but worsened by acute illness * on Epogen with dialysis * PRBC transfusion per protocol * follow trend of H/H (7) Diabetes mellitus with chronic kidney disease: Code(s): E11.22 - Type 2 diabetes mellitus with diabetic chronic kidney disease Status: Chronic Assessment and Plan: * follow accuchecks * glycemic control per hospitalists Will continue to follow. Subjective Date/time seen: 01/06/23 11:59 Interval history: Follow-up for acute kidney injury on chronic kidney disease along with volume overload.
--- NOTE | 2023-01-06 11:59 | PM.PNNEP ---
Progress Note: A&P Assessment and Plan (1) JOSE M (acute kidney injury): Code(s): N17.9 - Acute kidney failure, unspecified Status: Acute Assessment and Plan: due to ongoing attempts at diuresis with high dose diuretics however, evidence of diuretic resistance noted evaluation noted: renal ultrasound normal urine electrolytes look prerenal (inspite of clear evidence of volume overload) urine eosinophils negative serological testing negative to date (JEZ, ANCA, complements, SPEP, UPEP....etc still making some urine HD tomorrow given necessity of dialysis for ongoing optimization of his fluid status, the patient will likely need outpatient dialysis on discharge follow repeat labs and UOP for potential recovery (2) Chronic kidney disease, stage IV (severe): Code(s): N18.4 - Chronic kidney disease, stage 4 (severe) Status: Chronic Assessment and Plan: creatinine has been fluctuating ~ 2.0 - 2.5mg/dl since earlier this year suspected etiology of CKD due to hypertension, diabetes, and vascular disease however, his CHF and need for diuresis as well as suspected TIERRA likely playing a role (3) CHF (congestive heart failure): Qualifiers: Heart failure chronicity: acute Heart failure type: diastolic Qualified Code(s): I50.31 - Acute diastolic (congestive) heart failure Code(s): I50.9 - Heart failure, unspecified Status: Acute Assessment and Plan: acute exacerbation appears to be right sided heart failure + diastolic dysfunction Echo results noted -- normal LVSF, EF 50-55%, mild TR, no other significant valve pathology presented with dyspnea on exertion, abdominal distention and scrotal edema still making some urine (on diuretics) but not very much follow volume status continue fluid removal with HD (4) Respiratory failure with hypoxia: Code(s): J96.91 - Respiratory failure, unspecified with hypoxia Status: Acute Assessment and Plan: multifactorial: possible COPD suspected TIERRA/OHS fluid/volume overload CHF anemia Pulmonary following with recommendations noted follow respiratory status continue breathing treatments, diuretics, and dialysis/DUF s/p repeat right horacentesis on 01/05/23 s/p right heart catheterization today with results noted continue to push fluid removal as tolerated with dialysis however, he is already 31L negative since admission! (5) Hypertension: Qualifiers: Hypertension type: primary hypertension Qualified Code(s): I10 - Essential (primary) hypertension Code(s): I10 - Essential (primary) hypertension Status: Chronic Assessment and Plan: reasonable control follow trend of hemodynamics (6) Anemia: Code(s): D64.9 - Anemia, unspecified Status: Chronic Assessment and Plan: partly due to CKD but worsened by acute illness on Epogen with dialysis PRBC transfusion per protocol follow trend of H/H (7) Diabetes mellitus with chronic kidney disease: Code(s): E11.22 - Type 2 diabetes mellitus with diabetic chronic kidney disease Status: Chronic Assessment and Plan: follow accuchecks glycemic control per hospitalists Will continue to follow. Subjective Date/time seen: 01/06/23 11:59 Interval history: Follow-up for acute kidney injury on chronic kidney disease along with volume overload. Tolerated hemodialysis treatment yesterday without any issue or problems; s/p ultrasound guided right thoracentesis with 1000cc fluid removal and tolerated this intervention as well; s/p right heart catheterization earlier today with results noted; no acute complaints voiced; respiratory status seems about the same. Exam Narrative: General: middle aged male laying in bed in NAD Heart: normal S1 and S2; no rub Lungs: coarse and decreased at bases Abdomen: soft, nontender, nondistended, positive
[2023-01-06] MEDS: LEVALBUTEROL NEB 1.25 MG/3 ML INHALATION ×2 (13:39→21:24)
[2023-01-06] MEDS: UMECLIDINIUM/VILANTEROL 62.5-25 MCG ELLIPTA 1 PUFF INHALATION (13:53)
[2023-01-06 16:44] LABS: Glucose Point of Care 114 mg/dl (65-105)
[2023-01-06] MEDS: AMIODARONE HCL 200 MG TABLET 400 MG PO (17:42)
[2023-01-06] MEDS: metOLazone 5 MG TABLET 10 MG PO (17:45)
[2023-01-06] MEDS: ASCORBIC ACID 500 MG TABLET PO (17:45)
[2023-01-06] MEDS: FERROUS SULFATE 324 MG TABLET PO (17:46)
[2023-01-06] MEDS: PYRIDOXINE HCL 50 MG TABLET PO (17:47)
--- NOTE | 2023-01-06 18:56 | PC.NURSE ---
Addendum entered by Shravan Thompson RN 01/06/23 19:03: Received pt back from clinical laboratory technician with q15 checks done. Started with Q30 checks Original Note: Pt due for cardiac cath at 0930 per night RN. Cardiac cath called and pt only to receive bumex, aspirin (med not available prior to procedure), imdur, metoprolol, buspar. Pt BP was soft and deferred administering other BP medications at this time. Pt back to bedside with appropriate pulse measurements, vitals, assessed puncture site, but pt meds close to next administration. Pt somewhat confused and slightly agitated. Nephro declined dialysis r/t dye from cath procedure. Pt medications resumed appropriately.
[2023-01-06] MEDS: AMITRIPTYLINE HCL 25 MG TABLET 50 MG PO (21:03)
[2023-01-06] MEDS: ATORVASTATIN 40 MG TABLET PO (21:03)
[2023-01-06] MEDS: FAMOTIDINE 20 MG TABLET PO (21:03)
[2023-01-06] MEDS: QUEtiapine FUMARATE 12.5 MG TABLET PO (21:03)
[2023-01-06] MEDS: traZODone HCL 50 MG TABLET 100 MG PO (21:03)
[2023-01-06] MEDS: TOLNAFTATE 1% POWDER 45 GM BTL 1 APPLIC TOPICAL (21:05)
[2023-01-06] MEDS: FLUTICASONE PROPIONATE 0.05% NA SPR 16 GM BTL (*BKC) 1 SPRAY NASAL (21:06)
[2023-01-06] MEDS: INSULIN GLARGINE (*BKC) 100 UNITS/ML 10 UNITS SUB-Q (21:07)
[2023-01-06 21:20] LABS: Glucose Point of Care 168 mg/dl (65-105)
[2023-01-07] VITALS (34 sets, daily range): BP systolic 93–116; BP diastolic 64–97; PULSE 85–120; RESP 16–26; TEMP 35.3–36.8; O2SAT 96–100
--- NOTE | 2023-01-07 00:23 | PC.NURSE ---
Patient refused bipap at HS x 2. Patient states he is not wearing it tonight. Educated patient on need for bipap, still refuses.
[2023-01-07] MEDS: ACETAMINOPHEN 325 MG TABLET 650 MG PO ×2 (01:26→17:56)
[2023-01-07] MEDS: LEVALBUTEROL NEB 1.25 MG/3 ML INHALATION ×3 (03:14→20:31)
[2023-01-07] MEDS: IPRATROPIUM BR 0.02% INH SOLN 0.5 MG/2.5 ML VIAL INHALATION ×3 (03:14→20:31)
[2023-01-07] MEDS: GABAPENTIN 100 MG CAPSULE PO ×3 (05:13→21:32)
[2023-01-07] MEDS: traMADol HCL (*CRX) 50 MG TABLET 100 MG PO ×2 (05:13→12:22)
[2023-01-07] MEDS: hydrALAZINE HCL 50 MG TABLET 100 MG PO ×3 (05:14→21:41)
[2023-01-07] MEDS: LEVOTHYROXINE SODIUM 100 MCG TABLET PO (05:14)
[2023-01-07 05:33] LABS: Glucose Point of Care 168 mg/dl (65-105)
[2023-01-07 07:31] LABS: Glucose Point of Care 148 mg/dl (65-105)
--- NOTE | 2023-01-07 07:46 | PC.NURSE ---
patient to dialysis per bed. on 4 L per NC
--- NOTE | 2023-01-07 09:06 | PM.PNCARD ---
Progress Note: A&P Assessment and Plan (1) Respiratory failure with hypoxia: Code(s): J96.91 - Respiratory failure, unspecified with hypoxia Status: Acute Assessment and Plan: Volume removal with dialysis (2) CHF (congestive heart failure): Qualifiers: Heart failure chronicity: acute Heart failure type: diastolic Qualified Code(s): I50.31 - Acute diastolic (congestive) heart failure Code(s): I50.9 - Heart failure, unspecified Status: Acute Assessment and Plan: Volume removal with dialysis. Also on IV Bumex which should be continued (3) Paroxysmal atrial fibrillation: Code(s): I48.0 - Paroxysmal atrial fibrillation Status: Chronic Assessment and Plan: Will restart apixaban 5 mg p.o. b.i.d. today. Subjective Date/time seen: 01/07/23 09:06 Interval history: Reason for visit: Decompensated heart failure, atrial flutter HPI: Patient is a 57-year-old male who has a history of coronary disease.? Details are not known.? [facility].? He has had progressive lower extremity and scrotal edema as well as worsening shortness of breath over the past several months.? Symptoms worsened to the point that his testicles and foreskin were swollen and painful and decided to come to the hospital for further evaluation.? He was started on IV diuretics and was found to be in volume overload and is already feeling a little bit better with less swelling and less shortness of breath.? He does describe some orthopnea.? No chest pain.? No syncope, presyncope, paroxysmal nocturnal dyspnea.? Does have occasional palpitations.? He was recently admitted to this hospital for treatment of cellulitis. 12/16: Continues to complain of shortness of breath today.? Does not think his breathing has improved any since yesterday.? Has shortness of breath with minimal exertion.? No chest pain, palpitations. 12/17: Feeling better. No new complaints this morning. 12/18: Diuresing well. No shortness of breath. Lower extremity edema significantly improved. Per discussion with RN, cannot wean off oxygen. Patient was not on home oxygen. Desats quickly without supplemental oxygen. 12/19/2022: Complaining of pain in his neck, back, and buttocks from lying in bed for several days. He continues to become short of breath with minimal activity such as moving around in bed. Unable to wean O2. 12/20/2022: He is feeling better today. Breathing is better. He denies any chest pain. His neck and back pain have resolved. 12/21/2022: Patient sleeping, somewhat lethargic but arousable states his breathing was a little better, denied pain. Patient is status post right thoracentesis with 1 L fluid removal earlier today. Decreasing O2 requirement. Patient remains in atrial flutter with controlled rate variable AV block on telemetry. Date of service 12/22/2022: Patient feels much better much less short of breath. Denies chest pain or palpitations. Sleeping better. No other complaints. Afebrile. Remains in atrial flutter variable AV block. Labs not reported yet this morning. Date of service 12/27/2022: Has increased shortness of breath this evening after receiving blood transfusion. No other complaints. Date of service 12/30/2022: Patient having worsening dyspnea last night and again this morning. Plans are in place for this afternoon to place a dialysis catheter and [place] hope what is hopefully temporary hemodialysis later today. Patient is having significant shortness of breath with dyspnea with minimal conversation. Date of service 12/31/2022: Had 3 L removed with dialysis yesterday and another 3 L today. Pt thinks it is helping. On BiPAP over night and nasal cannula during the day. Chest x-ray from yesterday reviewed, CHF which was worsening, particularly on the right side. Date of service 01/03: Patient seen on dialysis this afternoon. He states his breathing is just a little better sinc
[2023-01-07] MEDS: SODIUM CHLORIDE 0.9% IV 1,000 ML 999 ML IV CONT (09:20)
[2023-01-07] MEDS: EPOETIN ALFA-EPBX 20,000 UNITS/ML VIAL 20000 UNITS IV PUSH (09:20)
--- NOTE | 2023-01-07 09:57 | PM.PNPUL ---
Progress Note: A&P Assessment and Plan (1) CHF (congestive heart failure): Qualifiers: Heart failure chronicity: acute Heart failure type: diastolic Qualified Code(s): I50.31 - Acute diastolic (congestive) heart failure Code(s): I50.9 - Heart failure, unspecified Status: Acute (2) Diabetes: Code(s): E11.9 - Type 2 diabetes mellitus without complications Status: Acute (3) Diabetes mellitus with chronic kidney disease: Code(s): E11.22 - Type 2 diabetes mellitus with diabetic chronic kidney disease Status: Chronic (4) Respiratory failure with hypoxia: Code(s): J96.91 - Respiratory failure, unspecified with hypoxia Status: Acute Assessment and Plan: Patient's respiratory status has been essentially unchanged over the last 2 days. He underwent right thoracentesis with a repeat chest x-ray showed significant decrease in the size of right pleural effusion. He remains on same oxygen flow and last CBC showed no WBC elevation. Respiratory exam is unchanged. Pleural fluid culture negative. MRSA screening pending. Plan: Will continue with supportive care. BiPAP support at night and p.r.n. during the day, repeat chest x-ray early next week. (5) Pleural effusion: Code(s): J90 - Pleural effusion, not elsewhere classified Status: Acute (6) Paroxysmal atrial fibrillation: Code(s): I48.0 - Paroxysmal atrial fibrillation Status: Chronic Subjective Date/time seen: 01/07/23 09:57 Interval history: Patient was seen in the dialysis suite. He has no new respiratory symptoms. He remains on relatively low oxygen flow. Underwent cardiac catheterization which confirmed left ventricular diastolic dysfunction. Review of Systems Review of Systems: All systems reviewed & are unremarkable except as noted in HPI and below Exam Narrative: GENERAL APPEARANCE: Well developed, well nourished, alert and cooperative, and appears to be in mild respiratory distress while on supplemental oxygen via nasal cannula at 2 liters/minute. HEENT: Sclerae anicteric and conjunctivae pink and moist. Extraocular movements were intact and pupils were equal. Dry oral mucosa NECK: Supple. There was no thyroid enlargement, and no tenderness, or masses were felt. CHEST: Normal AP diameter and normal contour without any kyphoscoliosis. LUNGS: Dullness to percussion at the right base posteriorly, rare rhonchi bilaterally no wheezing CARDIAC: There was a irregular rate and rhythm without any murmurs. ABDOMEN: Soft and nontender with normal bowel sounds. There was no organomegaly. LYMPH NODES: No lymphadenopathy was appreciated in the neck. 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 Normal affect. Objective Data Vital Signs Vital Signs: Vital Signs - 24 hr 01/06/23 11:45 01/06/23 12:00 01/06/23 12:15 Temperature Pulse Rate 106 H 101 H 108 H Respiratory Rate 20 20 20 Blood Pressure 107/78 105/78 111/74 Pulse Oximetry 100 98 98 Oxygen Delivery Nasal Cannula Nasal Cannula Nasal Cannula Oxygen Flow Rate 2 2 2 01/06/23 13:35 01/06/23 12:20 01/06/23 12:50 Temperature 35.7 C L 35.9 C L Pulse Rate 91 108 H 109 H Respiratory Rate 20 20 16 Blood Pressure 117/77 108/71 Pulse Oximetry 98 93 Oxygen Delivery Oxygen Flow Rate 01/06/23 13:50 01/06/23 14:20 01/06/23 17:42 Temperature 36.2 C L Pulse Rate 94 110 H 108 H Respiratory Rate 20 28 H Blood Pressure 105/75 Pulse Oximetry 100 Oxygen Delivery Oxygen Flow Rate 01/06/23 16:00 01/06/23 20:00 01/06/23 21:03 Temperature 36.1 C L 36.9 C Pulse Rate 110 H 113 H 115 H Respiratory Rate 20 20 Blood Pressure 114/71 122/80 Pulse Oximetry 98 92 Oxygen Delivery Oxygen Flow Rate 01/06/23 20:00 01/07/23 00:00 01/07/23 00:00 Temperature 36.6 C Pulse Rate 113 H 112 H 111 H Respiratory Rate 20 Blood Pressure 116/81 Pulse Oxi
--- NOTE | 2023-01-07 10:16 | PM.IMPN ---
Progress Note: A&P Assessment and Plan (1) CHF (congestive heart failure): Qualifiers: Heart failure chronicity: acute Heart failure type: diastolic Qualified Code(s): I50.31 - Acute diastolic (congestive) heart failure Code(s): I50.9 - Heart failure, unspecified Status: Acute Assessment and Plan: Continue volume removal with dialysis. (2) Respiratory failure with hypoxia: Code(s): J96.91 - Respiratory failure, unspecified with hypoxia Status: Acute Assessment and Plan: Secondary to volume overload. Continue hemodialysis. (3) Acute renal failure superimposed on chronic kidney disease: Code(s): N17.9 - Acute kidney failure, unspecified; N18.9 - Chronic kidney disease, unspecified Status: Acute Assessment and Plan: Hemodialysis. (4) HTN (hypertension): Code(s): I10 - Essential (primary) hypertension Status: Acute Assessment and Plan: Stable (5) Anemia, chronic disease: Code(s): D63.8 - Anemia in other chronic diseases classified elsewhere Status: Acute Assessment and Plan: Monitor hemoglobin (6) Diabetes: Code(s): E11.9 - Type 2 diabetes mellitus without complications Status: Acute Assessment and Plan: Blood sugars reviewed and adequately controlled (7) Paroxysmal atrial fibrillation: Code(s): I48.0 - Paroxysmal atrial fibrillation Status: Chronic Assessment and Plan: Sinus rhythm. On apixaban. On metoprolol . Rate not controlled amiodarone Subjective Date/time seen: 01/07/23 10:16 Interval history: Breathing is better. 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 Abdomen protuberant but soft nontender with good bowel sounds no palpable masses Musculoskeletal right BKA as noted Objective Data Vital Signs Vital Signs: Vital Signs - 24 hr 01/06/23 11:45 01/06/23 12:00 01/06/23 12:15 Temperature Pulse Rate 106 H 101 H 108 H Respiratory Rate 20 20 20 Blood Pressure 107/78 105/78 111/74 Pulse Oximetry 100 98 98 Oxygen Delivery Nasal Cannula Nasal Cannula Nasal Cannula Oxygen Flow Rate 2 2 2 01/06/23 13:35 01/06/23 12:20 01/06/23 12:50 Temperature 96.3 F L 96.7 F L Pulse Rate 91 108 H 109 H Respiratory Rate 20 20 16 Blood Pressure 117/77 108/71 Pulse Oximetry 98 93 Oxygen Delivery Oxygen Flow Rate 01/06/23 13:50 01/06/23 14:20 01/06/23 17:42 Temperature 97.2 F L Pulse Rate 94 110 H 108 H Respiratory Rate 20 28 H Blood Pressure 105/75 Pulse Oximetry 100 Oxygen Delivery Oxygen Flow Rate 01/06/23 16:00 01/06/23 20:00 01/06/23 21:03 Temperature 96.9 F L 98.4 F Pulse Rate 110 H 113 H 115 H Respiratory Rate 20 20 Blood Pressure 114/71 122/80 Pulse Oximetry 98 92 Oxygen Delivery Oxygen Flow Rate 01/06/23 20:00 01/07/23 00:00 01/07/23 00:00 Temperature 98 F Pulse Rate 113 H 112 H 111 H Respiratory Rate 20 Blood Pressure 116/81 Pulse Oximetry 97 Oxygen Delivery Oxygen Flow Rate 01/07/23 03:15 01/07/23 04:00 01/07/23 04:00 Temperature 98.2 F Pulse Rate 87 113 H 110 H Respiratory Rate 16 22 H Blood Pressure 107/79 Pulse Oximetry 99 Oxygen Delivery Oxygen Flow Rate 01/07/23 07:57 01/07/23 08:15 01/07/23 08:30 Temperature Pulse Rate 106 H 106 H 106 H Respiratory Rate Blood Pressure 103/75 109/76 106/76 Pulse Oximetry Oxygen Delivery Oxygen Flow Rate 01/07/23 07:50 01/07/23 07:50 01/07/23 08:50 Temperature 98.3 F Pulse Rate 105 H 109 H Respiratory Rate 16 Blood Pressure 107/76 93/76 L Pulse Oximetry Oxygen Delivery Oxygen Flow Rate 4 01/07/23 09:10 01/07/23 09:30
--- NOTE | 2023-01-07 10:35 | P.PNNP_ITS ---
Progress Note: A&P Assessment and Plan (1) JOSE M (acute kidney injury): Code(s): N17.9 - Acute kidney failure, unspecified Status: Acute Assessment and Plan: * due to ongoing attempts at diuresis with high dose diuretics * however, evidence of diuretic resistance noted * evaluation noted: * renal ultrasound normal * urine electrolytes look prerenal (inspite of clear evidence of volume overload) * urine eosinophils negative * serological testing negative to date (JEZ, ANCA, complements, SPEP, UPEP....etc * still making some urine * HD today * given necessity of dialysis for ongoing optimization of his fluid status, the patient will likely need outpatient dialysis on discharge * follow repeat labs and UOP for potential recovery (2) Chronic kidney disease, stage IV (severe): Code(s): N18.4 - Chronic kidney disease, stage 4 (severe) Status: Chronic Assessment and Plan: * creatinine has been fluctuating ~ 2.0 - 2.5mg/dl since earlier this year * suspected etiology of CKD due to hypertension, diabetes, and vascular disease * however, his CHF and need for diuresis as well as suspected TIERRA likely playing a role (3) CHF (congestive heart failure): Qualifiers: Heart failure chronicity: acute Heart failure type: diastolic Qualified Code(s): I50.31 - Acute diastolic (congestive) heart failure Code(s): I50.9 - Heart failure, unspecified Status: Acute Assessment and Plan: * acute exacerbation * appears to be right sided heart failure + diastolic dysfunction * Echo results noted -- normal LVSF, EF 50-55%, mild TR, no other significant valve pathology * presented with dyspnea on exertion, abdominal distention and scrotal edema * still making some urine (on diuretics) but not very much * follow volume status * continue fluid removal with HD * Cardiology following (4) Respiratory failure with hypoxia: Code(s): J96.91 - Respiratory failure, unspecified with hypoxia Status: Acute Assessment and Plan: * multifactorial: * possible COPD * suspected TIERRA/OHS * fluid/volume overload * CHF * anemia * Pulmonary following with recommendations noted * follow respiratory status * continue breathing treatments, diuretics, and dialysis/DUF * s/p repeat right horacentesis on 01/05/23 * s/p right heart catheterization (on 01/06/23) with results noted * continue to push fluid removal as tolerated with dialysis * however, he is already 31L negative since admission! * Pulmonary following (5) Hypertension: Qualifiers: Hypertension type: primary hypertension Qualified Code(s): I10 - Essential (primary) hypertension Code(s): I10 - Essential (primary) hypertension Status: Chronic Assessment and Plan: * reasonable control * follow trend of hemodynamics (6) Anemia: Code(s): D64.9 - Anemia, unspecified Status: Chronic Assessment and Plan: * partly due to CKD but worsened by acute illness * on Epogen with dialysis * PRBC transfusion per protocol * follow trend of H/H (7) Diabetes mellitus with chronic kidney disease: Code(s): E11.22 - Type 2 diabetes mellitus with diabetic chronic kidney disease Status: Chronic Assessment and Plan: * follow accuchecks * glycemic control per hospitalists Will continue to follow. Subjective Date/time seen: 01/07/23 10:35 Interval history: Follow-up for acute kidney injury on chronic kid
--- NOTE | 2023-01-07 10:35 | PM.PNNEP ---
Progress Note: A&P Assessment and Plan (1) JOSE M (acute kidney injury): Code(s): N17.9 - Acute kidney failure, unspecified Status: Acute Assessment and Plan: due to ongoing attempts at diuresis with high dose diuretics however, evidence of diuretic resistance noted evaluation noted: renal ultrasound normal urine electrolytes look prerenal (inspite of clear evidence of volume overload) urine eosinophils negative serological testing negative to date (JEZ, ANCA, complements, SPEP, UPEP....etc still making some urine HD today given necessity of dialysis for ongoing optimization of his fluid status, the patient will likely need outpatient dialysis on discharge follow repeat labs and UOP for potential recovery (2) Chronic kidney disease, stage IV (severe): Code(s): N18.4 - Chronic kidney disease, stage 4 (severe) Status: Chronic Assessment and Plan: creatinine has been fluctuating ~ 2.0 - 2.5mg/dl since earlier this year suspected etiology of CKD due to hypertension, diabetes, and vascular disease however, his CHF and need for diuresis as well as suspected TIERRA likely playing a role (3) CHF (congestive heart failure): Qualifiers: Heart failure chronicity: acute Heart failure type: diastolic Qualified Code(s): I50.31 - Acute diastolic (congestive) heart failure Code(s): I50.9 - Heart failure, unspecified Status: Acute Assessment and Plan: acute exacerbation appears to be right sided heart failure + diastolic dysfunction Echo results noted -- normal LVSF, EF 50-55%, mild TR, no other significant valve pathology presented with dyspnea on exertion, abdominal distention and scrotal edema still making some urine (on diuretics) but not very much follow volume status continue fluid removal with HD Cardiology following (4) Respiratory failure with hypoxia: Code(s): J96.91 - Respiratory failure, unspecified with hypoxia Status: Acute Assessment and Plan: multifactorial: possible COPD suspected TIERRA/OHS fluid/volume overload CHF anemia Pulmonary following with recommendations noted follow respiratory status continue breathing treatments, diuretics, and dialysis/DUF s/p repeat right horacentesis on 01/05/23 s/p right heart catheterization (on 01/06/23) with results noted continue to push fluid removal as tolerated with dialysis however, he is already 31L negative since admission! Pulmonary following (5) Hypertension: Qualifiers: Hypertension type: primary hypertension Qualified Code(s): I10 - Essential (primary) hypertension Code(s): I10 - Essential (primary) hypertension Status: Chronic Assessment and Plan: reasonable control follow trend of hemodynamics (6) Anemia: Code(s): D64.9 - Anemia, unspecified Status: Chronic Assessment and Plan: partly due to CKD but worsened by acute illness on Epogen with dialysis PRBC transfusion per protocol follow trend of H/H (7) Diabetes mellitus with chronic kidney disease: Code(s): E11.22 - Type 2 diabetes mellitus with diabetic chronic kidney disease Status: Chronic Assessment and Plan: follow accuchecks glycemic control per hospitalists Will continue to follow. Subjective Date/time seen: 01/07/23 10:35 Interval history: Follow-up for acute kidney injury on chronic kidney disease along with volume overload. Tolerated right heart catheterization yesterday without any issues; tolerating dialysis treatment at the time of my visit (seen on HD at 10:25AM) -- attempting 4L fluid removal; no apparent distress voiced; still has some shortness of breath but no worse (and perhaps a tad better); no other issues/events overnight or earlier this morning. Exam Narrative: General: middle aged male laying in bed in NAD Heart: normal S1 and S2; no rub Lungs: coarse an
[2023-01-07 11:23] LABS: Glucose Point of Care 247 mg/dl (65-105)
[2023-01-07] MEDS: INSULIN ASPART (*BKC) 100 UNITS/ML SUB-Q ×2 (12:23→16:35)
[2023-01-07] MEDS: PANTOPRAZOLE SODIUM IV 40 MG VIAL IV PUSH ×2 (12:27→21:34)
[2023-01-07] MEDS: FLUTICASONE PROPIONATE 0.05% NA SPR 16 GM BTL (*BKC) 1 SPRAY NASAL ×2 (12:27→21:28)
[2023-01-07] MEDS: AMIODARONE HCL 200 MG TABLET 400 MG PO ×2 (12:28→16:37)
[2023-01-07] MEDS: METOPROLOL TARTRATE 50 MG TAB 100 MG PO ×2 (12:28→21:26)
[2023-01-07] MEDS: ISOSORBIDE MONONITRATE 30 MG TAB.ER.24H PO (12:29)
[2023-01-07] MEDS: FAMOTIDINE 20 MG TABLET PO ×2 (12:29→21:30)
[2023-01-07] MEDS: polyethylene glycoL 3350 17 GM POWD.PACK PO (12:29)
[2023-01-07] MEDS: FERROUS SULFATE 324 MG TABLET PO ×2 (12:30→16:37)
[2023-01-07] MEDS: ASPIRIN 81 MG ENTERIC TABLET PO (12:30)
[2023-01-07] MEDS: busPIRone HCL 10 MG TABLET PO ×2 (12:30→16:37)
[2023-01-07] MEDS: busPIRone HCL 5 MG TABLET PO ×2 (12:30→16:37)
[2023-01-07] MEDS: metOLazone 5 MG TABLET 10 MG PO ×2 (12:30→16:37)
[2023-01-07] MEDS: BUMETANIDE INJ 2.5 MG/10 ML VIAL 2 MG IV PUSH ×2 (12:31→16:36)
[2023-01-07] MEDS: TOLNAFTATE 1% POWDER 45 GM BTL 1 APPLIC TOPICAL ×2 (12:40→21:44)
[2023-01-07 15:33] LABS: Basophils Percent Auto 0.5 % (0.2-1.2); Eosinophils Absolute Auto 0.1 K/mm3 (0-0.3); Eosinophils Percent Auto 0.8 % (0-4.4); Hematocrit 26.6 % (42.0-52.0); Hemoglobin 7.7 g/dL (14.0-18.0); Immature Granulocyte Absolute 0.05 K/mm3 (0.00-0.031); Immature Granulocyte Percent A 0.6 % (0-0.5); Lymphocytes Absolute Auto 0.34 K/mm3 (0.9-3.2); Lymphocytes Percent Auto 4.3 % (18.3-44.2); Mean Corpuscular HGB Conc 28.9 g/dl (32-36); Mean Corpuscular Hemoglobin 24.4 pg (26-34); Mean Corpuscular Volume 84.2 fl (80-100); Mean Platelet Volume 10.3 fl (7.4-10.4); Monocytes Absolute Auto 0.6 K/mm3 (0.1-0.6); Monocytes Percent Auto 7.9 % (2.6-8.5); Neutrophils Absolute Auto 6.8 K/mm3 (1.3-6.7); Neutrophils Percent Auto 85.9 % (45.5-73.1); Platelet Count Result 246 k/mm3 (150-375); Red Blood Count 3.16 M/mm3 (4.6-6.20); Red Cell Distribution Width 18.4 % (11.5-14.5)
[2023-01-07 15:48] LABS: Alanine Aminotransferase 14 U/L (6-50); Albumin Level 3.1 g/dL (3.5-5.1); Alkaline Phosphatase 168 U/L (38-126); Anion Gap 5 mmol/L (8-16); Aspartate Amino Transferase 18 U/L (17-59); Bilirubin,Total 0.6 mg/dL (0.2-1.3); Blood Urea Nitrogen 23 mg/dL (9-20); Calcium 7.8 mg/dL (8.4-10.2); Carbon Dioxide 30 mmol/L (22-30); Chloride 102 mmol/L (98-107); Estimated CRCL calculation 30 ml/min; Estimated Glomerular Filt Rate 23; Glucose 265 mg/dL (65-110); Magnesium 2.1 mg/dL (1.6-2.3); Phosphorus 3.6 mg/dL (2.5-4.5); Potassium 3.8 mmol/L (3.4-5.0); Sodium 137 mmol/L (137-145)
[2023-01-07 16:22] LABS: Anisocytosis 1+ (NORMAL); Hypochromasia 1+ (NORMAL); Platelet Estimate Adequate (Adequate)
[2023-01-07 16:23] LABS: Poikilocytosis 1+ (NORMAL); Schistocytes None Seen (NORMAL)
[2023-01-07 16:24] LABS: Glucose Point of Care 380 mg/dl (65-105)
[2023-01-07] MEDS: AMITRIPTYLINE HCL 25 MG TABLET 50 MG PO (21:25)
[2023-01-07] MEDS: APIXABAN 5 MG TABLET PO (21:29)
[2023-01-07] MEDS: ATORVASTATIN 40 MG TABLET PO (21:30)
[2023-01-07] MEDS: traZODone HCL 50 MG TABLET 100 MG PO (21:36)
[2023-01-07] MEDS: QUEtiapine FUMARATE 12.5 MG TABLET PO (21:43)
[2023-01-07] MEDS: INSULIN GLARGINE (*BKC) 100 UNITS/ML 10 UNITS SUB-Q (21:52)
[2023-01-07 22:04] LABS: Glucose Point of Care 110 mg/dl (65-105)
[2023-01-07 22:21] LABS: Glucose Point of Care 118 mg/dl (65-105)
[2023-01-08] VITALS (20 sets, daily range): BP systolic 94–121; BP diastolic 54–83; PULSE 70–104; RESP 16–24; TEMP 36.3–37.1; O2SAT 85–100
[2023-01-08] MEDS: IPRATROPIUM BR 0.02% INH SOLN 0.5 MG/2.5 ML VIAL INHALATION ×4 (02:33→20:10)
[2023-01-08] MEDS: LEVALBUTEROL NEB 1.25 MG/3 ML INHALATION ×4 (02:33→20:10)
[2023-01-08] MEDS: LEVOTHYROXINE SODIUM 100 MCG TABLET PO (04:46)
[2023-01-08] MEDS: hydrALAZINE HCL 50 MG TABLET 100 MG PO ×2 (04:46→13:01)
[2023-01-08] MEDS: GABAPENTIN 100 MG CAPSULE PO ×3 (04:48→21:03)
[2023-01-08 06:13] LABS: Basophils Percent Auto 0.6 % (0.2-1.2); Eosinophils Absolute Auto 0.1 K/mm3 (0-0.3); Eosinophils Percent Auto 1.2 % (0-4.4); Immature Granulocyte Absolute 0.04 K/mm3 (0.00-0.031); Immature Granulocyte Percent A 0.6 % (0-0.5); Lymphocytes Absolute Auto 0.43 K/mm3 (0.9-3.2); Lymphocytes Percent Auto 5.9 % (18.3-44.2); Mean Corpuscular HGB Conc 28.6 g/dl (32-36); Mean Corpuscular Hemoglobin 24.2 pg (26-34); Mean Corpuscular Volume 84.8 fl (80-100); Mean Platelet Volume 9.9 fl (7.4-10.4); Monocytes Absolute Auto 0.5 K/mm3 (0.1-0.6); Monocytes Percent Auto 6.8 % (2.6-8.5); Neutrophils Absolute Auto 6.1 K/mm3 (1.3-6.7); Neutrophils Percent Auto 84.9 % (45.5-73.1); Platelet Count Result 252 k/mm3 (150-375); Red Cell Distribution Width 18.5 % (11.5-14.5); White Blood Count 7.2 K/mm3 (4.5-10.0)
[2023-01-08 06:29] LABS: Alanine Aminotransferase 13 U/L (6-50); Albumin Level 3.3 g/dL (3.5-5.1); Alkaline Phosphatase 166 U/L (38-126); Anion Gap 7 mmol/L (8-16); Aspartate Amino Transferase 17 U/L (17-59); Bilirubin,Total 0.6 mg/dL (0.2-1.3); Blood Urea Nitrogen 32 mg/dL (9-20); Calcium 8.2 mg/dL (8.4-10.2); Carbon Dioxide 29 mmol/L (22-30); Chloride 102 mmol/L (98-107); Estimated CRCL calculation 22 ml/min; Estimated Glomerular Filt Rate 18; Glucose 204 mg/dL (65-110); Phosphorus 4.7 mg/dL (2.5-4.5); Potassium 4.2 mmol/L (3.4-5.0); Sodium 138 mmol/L (137-145)
[2023-01-08 06:51] LABS: Acanthocytes 1+ (NORMAL); Burr Cells 1+ (NORMAL); Ovalocytes 1+ (NORMAL); Platelet Estimate Adequate (Adequate); Schistocytes None Seen (NORMAL)
[2023-01-08 07:26] LABS: Glucose Point of Care 195 mg/dl (65-105)
[2023-01-08] MEDS: UMECLIDINIUM/VILANTEROL 62.5-25 MCG ELLIPTA 1 PUFF INHALATION (07:57)
[2023-01-08] MEDS: APIXABAN 5 MG TABLET PO ×2 (08:34→21:03)
[2023-01-08] MEDS: METOPROLOL TARTRATE 50 MG TAB 100 MG PO ×2 (08:34→21:03)
[2023-01-08] MEDS: FAMOTIDINE 20 MG TABLET PO ×2 (08:37→21:03)
[2023-01-08] MEDS: polyethylene glycoL 3350 17 GM POWD.PACK PO (08:37)
[2023-01-08] MEDS: PYRIDOXINE HCL 50 MG TABLET PO (08:37)
[2023-01-08] MEDS: FLUTICASONE PROPIONATE 0.05% NA SPR 16 GM BTL (*BKC) 1 SPRAY NASAL ×2 (08:38→21:03)
[2023-01-08] MEDS: ISOSORBIDE MONONITRATE 30 MG TAB.ER.24H PO (08:39)
[2023-01-08] MEDS: AMIODARONE HCL 200 MG TABLET 400 MG PO ×3 (08:39→16:56)
[2023-01-08] MEDS: busPIRone HCL 10 MG TABLET PO ×3 (08:39→16:56)
[2023-01-08] MEDS: busPIRone HCL 5 MG TABLET PO ×3 (08:39→16:56)
[2023-01-08] MEDS: metOLazone 5 MG TABLET 10 MG PO ×2 (08:39→16:57)
[2023-01-08] MEDS: ASPIRIN 81 MG ENTERIC TABLET PO (08:39)
[2023-01-08] MEDS: BUMETANIDE INJ 2.5 MG/10 ML VIAL 2 MG IV PUSH ×2 (08:39→16:58)
[2023-01-08] MEDS: ASCORBIC ACID 500 MG TABLET PO (08:40)
[2023-01-08] MEDS: TOLNAFTATE 1% POWDER 45 GM BTL 1 APPLIC TOPICAL (08:40)
[2023-01-08] MEDS: PANTOPRAZOLE SODIUM IV 40 MG VIAL IV PUSH ×2 (08:40→21:03)
[2023-01-08] MEDS: traMADol HCL (*CRX) 50 MG TABLET 100 MG PO ×3 (09:04→21:20)
--- NOTE | 2023-01-08 09:14 | PM.PNCARD ---
Progress Note: A&P Assessment and Plan (1) Respiratory failure with hypoxia: Code(s): J96.91 - Respiratory failure, unspecified with hypoxia Status: Acute Assessment and Plan: Volume removal with dialysis. Was able to remove couple of L yesterday. (2) CHF (congestive heart failure): Qualifiers: Heart failure chronicity: acute Heart failure type: diastolic Qualified Code(s): I50.31 - Acute diastolic (congestive) heart failure Code(s): I50.9 - Heart failure, unspecified Status: Acute Assessment and Plan: Volume removal with dialysis. Also on IV Bumex which should be continued but he is not making much urine. (3) Paroxysmal atrial fibrillation: Code(s): I48.0 - Paroxysmal atrial fibrillation Status: Chronic Assessment and Plan: Continue apixaban Subjective Date/time seen: 01/08/23 09:14 Interval history: Reason for visit: Decompensated heart failure, atrial flutter HPI: Patient is a 57-year-old male who has a history of coronary disease.? Details are not known.? He follows with [facility].? He has had progressive lower extremity and scrotal edema as well as worsening shortness of breath over the past several months.? Symptoms worsened to the point that his testicles and foreskin were swollen and painful and decided to come to the hospital for further evaluation.? He was started on IV diuretics and was found to be in volume overload and is already feeling a little bit better with less swelling and less shortness of breath.? He does describe some orthopnea.? No chest pain.? No syncope, presyncope, paroxysmal nocturnal dyspnea.? Does have occasional palpitations.? He was recently admitted to this hospital for treatment of cellulitis. 12/16: Continues to complain of shortness of breath today.? Does not think his breathing has improved any since yesterday.? Has shortness of breath with minimal exertion.? No chest pain, palpitations. 12/17: Feeling better. No new complaints this morning. 12/18: Diuresing well. No shortness of breath. Lower extremity edema significantly improved. Per discussion with RN, cannot wean off oxygen. Patient was not on home oxygen. Desats quickly without supplemental oxygen. 12/19/2022: Complaining of pain in his neck, back, and buttocks from lying in bed for several days. He continues to become short of breath with minimal activity such as moving around in bed. Unable to wean O2. 12/20/2022: He is feeling better today. Breathing is better. He denies any chest pain. His neck and back pain have resolved. 12/21/2022: Patient sleeping, somewhat lethargic but arousable states his breathing was a little better, denied pain. Patient is status post right thoracentesis with 1 L fluid removal earlier today. Decreasing O2 requirement. Patient remains in atrial flutter with controlled rate variable AV block on telemetry. Date of service 12/22/2022: Patient feels much better much less short of breath. Denies chest pain or palpitations. Sleeping better. No other complaints. Afebrile. Remains in atrial flutter variable AV block. Labs not reported yet this morning. Date of service 12/27/2022: Has increased shortness of breath this evening after receiving blood transfusion. No other complaints. Date of service 12/30/2022: Patient having worsening dyspnea last night and again this morning. Plans are in place for this afternoon to place a dialysis catheter and [place] hope what is hopefully temporary hemodialysis later today. Patient is having significant shortness of breath with dyspnea with minimal conversation. Date of service 12/31/2022: Had 3 L removed with dialysis yesterday and another 3 L today. Pt thinks it is helping. On BiPAP over night and nasal cannula during the day. Chest x-ray from yesterday reviewed, CHF which was worsening, particularly on the right side. Date of service 01/03: Patient seen on dialysis this afternoon. H
--- NOTE | 2023-01-08 10:32 | PCPTNOTE ---
The patient treatment was not able to be completed on 01/07/23 due to patient being in dialysis. Will plan to continue treatment per plan of care.
[2023-01-08 11:19] LABS: Glucose Point of Care 265 mg/dl (65-105)
--- NOTE | 2023-01-08 11:19 | PM.IMPN ---
Progress Note: A&P Assessment and Plan (1) CHF (congestive heart failure): Qualifiers: Heart failure chronicity: acute Heart failure type: diastolic Qualified Code(s): I50.31 - Acute diastolic (congestive) heart failure Code(s): I50.9 - Heart failure, unspecified Status: Acute Assessment and Plan: Continue volume removal with dialysis. Appreciate renal input (2) Respiratory failure with hypoxia: Code(s): J96.91 - Respiratory failure, unspecified with hypoxia Status: Acute Assessment and Plan: Secondary to volume overload. Continue hemodialysis. (3) Acute renal failure superimposed on chronic kidney disease: Code(s): N17.9 - Acute kidney failure, unspecified; N18.9 - Chronic kidney disease, unspecified Status: Acute Assessment and Plan: Hemodialysis. (4) HTN (hypertension): Code(s): I10 - Essential (primary) hypertension Status: Acute Assessment and Plan: Stable (5) Anemia, chronic disease: Code(s): D63.8 - Anemia in other chronic diseases classified elsewhere Status: Acute Assessment and Plan: Monitor hemoglobin (6) Diabetes: Code(s): E11.9 - Type 2 diabetes mellitus without complications Status: Acute Assessment and Plan: Blood sugars reviewed and adequately controlled (7) Paroxysmal atrial fibrillation: Code(s): I48.0 - Paroxysmal atrial fibrillation Status: Chronic Assessment and Plan: Sinus rhythm. On apixaban. On metoprolol . Rate not controlled amiodarone Subjective Date/time seen: 01/08/23 11:19 Interval history: No new complaints. 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 Abdomen protuberant but soft nontender with good bowel sounds no palpable masses Musculoskeletal right BKA as noted Objective Data Vital Signs Vital Signs: Vital Signs - 24 hr 01/07/23 11:30 01/07/23 11:50 01/07/23 12:02 Temperature Pulse Rate 105 H 103 H 90 Respiratory Rate Blood Pressure 106/72 113/70 100/78 Pulse Oximetry Oxygen Delivery Oxygen Flow Rate Fraction of Inspired Oxygen 01/07/23 12:10 01/07/23 12:28 01/07/23 13:00 Temperature 98.1 F Pulse Rate 100 100 Respiratory Rate 16 Blood Pressure 110/83 Pulse Oximetry 100 Oxygen Delivery Nasal Cannula Oxygen Flow Rate 4 Fraction of Inspired Oxygen 01/07/23 12:00 01/07/23 12:00 01/07/23 14:00 Temperature 97.0 F L Pulse Rate 103 H 85 Respiratory Rate 26 H Blood Pressure 111/83 Pulse Oximetry 100 98 Oxygen Delivery Nasal Cannula Oxygen Flow Rate 2 Fraction of Inspired Oxygen 01/07/23 15:46 01/07/23 15:47 01/07/23 16:37 Temperature Pulse Rate 98 98 91 Respiratory Rate 18 18 Blood Pressure Pulse Oximetry 97 Oxygen Delivery Nasal Cannula Oxygen Flow Rate 2 Fraction of Inspired Oxygen 28 01/07/23 16:00 01/07/23 16:00 01/07/23 20:31 Temperature 97.5 F L Pulse Rate 104 H 90 92 Respiratory Rate 22 H 18 Blood Pressure 96/64 L Pulse Oximetry 98 Oxygen Delivery Oxygen Flow Rate Fraction of Inspired Oxygen 01/07/23 20:32 01/07/23 21:26 01/07/23 20:00 Temperature 97.9 F Pulse Rate 118 H 107 H Respiratory Rate 20 Blood Pressure 113/78 Pulse Oximetry 96 100 Oxygen Delivery Nasal Cannula Oxygen Flow Rate 2 Fraction of Inspired Oxygen 01/07/23 23:55 01/07/23 20:10 01/07/23 20:10 Temperature 98 F Pulse Rate 98 105 H 98 Respiratory Rate 20 20 Blood Pressure 103/65 Pulse Oximetry 99 99 Oxygen Delivery Nasal Cannula Oxygen Flow Rate 4 Fraction of Inspired Oxygen 01/08/23 02:33 01/08/23 00:00 01/08/23 04:00 Temperature
[2023-01-08 11:43] LABS: Appearance Urine Turbid (Clear); Bacteria Urine 4+ /hpf; Bilirubin Urine Negative (Negative); Blood Urine 3+ (Negative); Color Urine Yellow (Yellow); Glucose Urine UA 1+ mg/dL (Negative); Ketones Urine Negative (Negative); Leukocyte Esterase Ur 3+ LEU/UL (Negative); Need Manual Microscopic Reviewed; Nitrate Urine Negative (Negative); Non Pathogenic Casts >20; Protein Urine 2+ mg/dL (Negative); RBC Urine >100 /hpf (0-2); Specific Grav Ur 1.012 (1.001-1.035); Squamous Epithelial Cell Urine Occasional /hpf (Few); WBC Urine >100 /hpf; pH Urine 6.5 (5.0-9.0)
[2023-01-08] MEDS: INSULIN ASPART (*BKC) 100 UNITS/ML SUB-Q ×2 (11:49→16:46)
[2023-01-08] MEDS: FERROUS SULFATE 324 MG TABLET PO ×2 (11:50→16:57)
--- NOTE | 2023-01-08 12:17 | PM.PNPUL ---
Progress Note: A&P Assessment and Plan (1) CHF (congestive heart failure): Qualifiers: Heart failure chronicity: acute Heart failure type: diastolic Qualified Code(s): I50.31 - Acute diastolic (congestive) heart failure Code(s): I50.9 - Heart failure, unspecified Status: Acute (2) Diabetes: Code(s): E11.9 - Type 2 diabetes mellitus without complications Status: Acute (3) Diabetes mellitus with chronic kidney disease: Code(s): E11.22 - Type 2 diabetes mellitus with diabetic chronic kidney disease Status: Chronic (4) Respiratory failure with hypoxia: Code(s): J96.91 - Respiratory failure, unspecified with hypoxia Status: Acute Assessment and Plan: Patient's respiratory status has been essentially unchanged over the last 2 days. He underwent right thoracentesis with today's chest x-ray showing significant decrease in the size of right pleural effusion and clearing of lung congestion. He remains on same oxygen flow and last CBC showed nl WBC. Respiratory exam is unchanged. Pleural fluid culture negative. MRSA screening pending. Plan: Will continue monitor respiratory status. Out of bed to chair. (5) Pleural effusion: Code(s): J90 - Pleural effusion, not elsewhere classified Status: Acute (6) Paroxysmal atrial fibrillation: Code(s): I48.0 - Paroxysmal atrial fibrillation Status: Chronic Subjective Date/time seen: 01/08/23 12:17 Interval history: Patient with out any new respiratory symptoms. Sitting up in chair on supplemental oxygen via nasal cannula. Has not been using BiPAP support at night. Review of Systems Review of Systems: All systems reviewed & are unremarkable except as noted in HPI and below Exam Narrative: GENERAL APPEARANCE: Well developed, well nourished, alert and cooperative, and appears to be in mild respiratory distress while on supplemental oxygen via nasal cannula at 2 liters/minute. HEENT: Sclerae anicteric and conjunctivae pink and moist. Extraocular movements were intact and pupils were equal. Dry oral mucosa NECK: Supple. There was no thyroid enlargement, and no tenderness, or masses were felt. CHEST: Normal AP diameter and normal contour without any kyphoscoliosis. LUNGS: Dullness to percussion at the right base posteriorly, rare rhonchi bilaterally no wheezing CARDIAC: There was a irregular rate and rhythm without any murmurs. ABDOMEN: Soft and nontender with normal bowel sounds. There was no organomegaly. LYMPH NODES: No lymphadenopathy was appreciated in the neck. 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 Normal affect. Objective Data Vital Signs Vital Signs: Vital Signs - 24 hr 01/07/23 12:28 01/07/23 13:00 01/07/23 14:00 Temperature Pulse Rate 100 Respiratory Rate Blood Pressure Pulse Oximetry 100 98 Oxygen Delivery Nasal Cannula Nasal Cannula Oxygen Flow Rate 4 2 Fraction of Inspired Oxygen 01/07/23 15:46 01/07/23 15:47 01/07/23 16:37 Temperature Pulse Rate 98 98 91 Respiratory Rate 18 18 Blood Pressure Pulse Oximetry 97 Oxygen Delivery Nasal Cannula Oxygen Flow Rate 2 Fraction of Inspired Oxygen 28 01/07/23 16:00 01/07/23 16:00 01/07/23 20:31 Temperature 36.4 C L Pulse Rate 104 H 90 92 Respiratory Rate 22 H 18 Blood Pressure 96/64 L Pulse Oximetry 98 Oxygen Delivery Oxygen Flow Rate Fraction of Inspired Oxygen 01/07/23 20:32 01/07/23 21:26 01/07/23 20:00 Temperature 36.6 C Pulse Rate 118 H 107 H Respiratory Rate 20 Blood Pressure 113/78 Pulse Oximetry 96 100 Oxygen Delivery Nasal Cannula Oxygen Flow Rate 2 Fraction of Inspired Oxygen 01/07/23 23:55 01/07/23 20:10 01/07/23 20:10 Temperature 36.6 C Pulse Rate 98 105 H 98 Respiratory Rate 20 20 Blood Pressure 103/65 Pulse Oximetry 99 99 Oxygen Delivery Nasal Cannula Oxygen F
[2023-01-08 12:21] LABS: Add Urine Microscopic? YES
--- NOTE | 2023-01-08 12:42 | PM.PNNEP ---
Progress Note: A&P Assessment and Plan (1) JOSE M (acute kidney injury): Code(s): N17.9 - Acute kidney failure, unspecified Status: Acute Assessment and Plan: due to ongoing attempts at diuresis with high dose diuretics however, evidence of diuretic resistance noted evaluation noted: renal ultrasound normal urine electrolytes look prerenal (inspite of clear evidence of volume overload) urine eosinophils negative serological testing negative to date (JEZ, ANCA, complements, SPEP, UPEP....etc still making some urine HD Monday; possible DUF tomorrow for further fluid removal given necessity of dialysis for ongoing optimization of his fluid status, the patient will likely need outpatient dialysis on discharge follow repeat labs and UOP for potential recovery (2) Chronic kidney disease, stage IV (severe): Code(s): N18.4 - Chronic kidney disease, stage 4 (severe) Status: Chronic Assessment and Plan: creatinine has been fluctuating ~ 2.0 - 2.5mg/dl since earlier this year suspected etiology of CKD due to hypertension, diabetes, and vascular disease however, his CHF and need for diuresis as well as suspected TIERRA likely playing a role (3) CHF (congestive heart failure): Qualifiers: Heart failure chronicity: acute Heart failure type: diastolic Qualified Code(s): I50.31 - Acute diastolic (congestive) heart failure Code(s): I50.9 - Heart failure, unspecified Status: Acute Assessment and Plan: acute exacerbation appears to be right sided heart failure + diastolic dysfunction Echo results noted -- normal LVSF, EF 50-55%, mild TR, no other significant valve pathology presented with dyspnea on exertion, abdominal distention and scrotal edema still making some urine (on diuretics) but not very much follow volume status continue fluid removal with HD Cardiology following (4) Respiratory failure with hypoxia: Code(s): J96.91 - Respiratory failure, unspecified with hypoxia Status: Acute Assessment and Plan: multifactorial: possible COPD suspected TIERRA/OHS fluid/volume overload CHF anemia Pulmonary following with recommendations noted follow respiratory status continue breathing treatments, diuretics, and dialysis/DUF s/p repeat right horacentesis on 01/05/23 s/p right heart catheterization (on 01/06/23) with results noted continue to push fluid removal as tolerated with dialysis + DUF however, he is already 32L negative since admission!! Pulmonary following (5) Hypertension: Qualifiers: Hypertension type: primary hypertension Qualified Code(s): I10 - Essential (primary) hypertension Code(s): I10 - Essential (primary) hypertension Status: Chronic Assessment and Plan: reasonable control follow trend of hemodynamics (6) Anemia: Code(s): D64.9 - Anemia, unspecified Status: Chronic Assessment and Plan: partly due to CKD but worsened by acute illness on Epogen with dialysis PRBC transfusion per protocol follow trend of H/H (7) Diabetes mellitus with chronic kidney disease: Code(s): E11.22 - Type 2 diabetes mellitus with diabetic chronic kidney disease Status: Chronic Assessment and Plan: follow accuchecks glycemic control per hospitalists Will continue to follow. Subjective Date/time seen: 01/08/23 12:42 Interval history: Follow-up for acute kidney injury on chronic kidney disease along with volume overload. Tolerated hemodialysis treatment yesterday without any issues or problems with 3L fluid removal; respiratory status seems unchanged and he still reports some shortness of breath, however, he has been weaned down to 2L oxygen by nasal cannula and has not required BiPAP at night for a few nights. Exam Narrative: General: middle aged male in NAD Heart: normal S1 and S2; no rub Lungs: coarse an
--- NOTE | 2023-01-08 12:42 | P.PNNP_ITS ---
Progress Note: A&P Assessment and Plan (1) JOSE M (acute kidney injury): Code(s): N17.9 - Acute kidney failure, unspecified Status: Acute Assessment and Plan: * due to ongoing attempts at diuresis with high dose diuretics * however, evidence of diuretic resistance noted * evaluation noted: * renal ultrasound normal * urine electrolytes look prerenal (inspite of clear evidence of volume overload) * urine eosinophils negative * serological testing negative to date (JEZ, ANCA, complements, SPEP, UPEP....etc * still making some urine * HD Monday; possible DUF tomorrow for further fluid removal * given necessity of dialysis for ongoing optimization of his fluid status, the patient will likely need outpatient dialysis on discharge * follow repeat labs and UOP for potential recovery (2) Chronic kidney disease, stage IV (severe): Code(s): N18.4 - Chronic kidney disease, stage 4 (severe) Status: Chronic Assessment and Plan: * creatinine has been fluctuating ~ 2.0 - 2.5mg/dl since earlier this year * suspected etiology of CKD due to hypertension, diabetes, and vascular disease * however, his CHF and need for diuresis as well as suspected TIERRA likely playing a role (3) CHF (congestive heart failure): Qualifiers: Heart failure chronicity: acute Heart failure type: diastolic Qualified Code(s): I50.31 - Acute diastolic (congestive) heart failure Code(s): I50.9 - Heart failure, unspecified Status: Acute Assessment and Plan: * acute exacerbation * appears to be right sided heart failure + diastolic dysfunction * Echo results noted -- normal LVSF, EF 50-55%, mild TR, no other significant valve pathology * presented with dyspnea on exertion, abdominal distention and scrotal edema * still making some urine (on diuretics) but not very much * follow volume status * continue fluid removal with HD * Cardiology following (4) Respiratory failure with hypoxia: Code(s): J96.91 - Respiratory failure, unspecified with hypoxia Status: Acute Assessment and Plan: * multifactorial: * possible COPD * suspected TIERRA/OHS * fluid/volume overload * CHF * anemia * Pulmonary following with recommendations noted * follow respiratory status * continue breathing treatments, diuretics, and dialysis/DUF * s/p repeat right horacentesis on 01/05/23 * s/p right heart catheterization (on 01/06/23) with results noted * continue to push fluid removal as tolerated with dialysis + DUF * however, he is already 32L negative since admission!! * Pulmonary following (5) Hypertension: Qualifiers: Hypertension type: primary hypertension Qualified Code(s): I10 - Essential (primary) hypertension Code(s): I10 - Essential (primary) hypertension Status: Chronic Assessment and Plan: * reasonable control * follow trend of hemodynamics (6) Anemia: Code(s): D64.9 - Anemia, unspecified Status: Chronic Assessment and Plan: * partly due to CKD but worsened by acute illness * on Epogen with dialysis * PRBC transfusion per protocol * follow trend of H/H (7) Diabetes mellitus with chronic kidney disease: Code(s): E11.22 - Type 2 diabetes mellitus with diabetic chronic kidney disease Status: Chronic Assessment and Plan: * follow accuchecks * glycemic control per hospitalists Will continue to follow. Subjective Date/time seen: 01/08/23 12:42 Interval histo
[2023-01-08] MEDS: ACETAMINOPHEN 325 MG TABLET 650 MG PO (13:04)
[2023-01-08 16:30] LABS: Glucose Point of Care 224 mg/dl (65-105)
[2023-01-08 20:39] LABS: Glucose Point of Care 149 mg/dl (65-105)
[2023-01-08] MEDS: QUEtiapine FUMARATE 12.5 MG TABLET PO (21:03)
[2023-01-08] MEDS: ATORVASTATIN 40 MG TABLET PO (21:03)
[2023-01-08] MEDS: traZODone HCL 50 MG TABLET 100 MG PO (21:03)
[2023-01-08] MEDS: AMITRIPTYLINE HCL 25 MG TABLET 50 MG PO (21:03)
[2023-01-08] MEDS: INSULIN GLARGINE (*BKC) 100 UNITS/ML 10 UNITS SUB-Q (21:10)
[2023-01-09] VITALS (30 sets, daily range): BP systolic 80–119; BP diastolic 49–78; PULSE 64–96; RESP 14–24; TEMP 36–36.8; O2SAT 92–100
[2023-01-09] MEDS: LEVOTHYROXINE SODIUM 100 MCG TABLET PO (06:02)
[2023-01-09] MEDS: GABAPENTIN 100 MG CAPSULE PO ×2 (06:02→22:02)
--- NOTE | 2023-01-09 06:22 | PC.NURSE ---
Pt had his catheter removed yesterday evening. Pt has had no out put since removal of his catheter, however he is also a dialysis pt. Pt was bladder scanned which showed [address] Downs notified that pt had not urinated all shift and of bladder scan results. No new orders at this time.
[2023-01-09 07:57] LABS: Glucose Point of Care 145 mg/dl (65-105)
[2023-01-09] MEDS: LEVALBUTEROL NEB 1.25 MG/3 ML INHALATION ×3 (08:11→20:58)
[2023-01-09] MEDS: IPRATROPIUM BR 0.02% INH SOLN 0.5 MG/2.5 ML VIAL INHALATION ×3 (08:11→20:58)
--- NOTE | 2023-01-09 08:36 | PM.PNPUL ---
Progress Note: A&P Assessment and Plan (1) CHF (congestive heart failure): Qualifiers: Heart failure chronicity: acute Heart failure type: diastolic Qualified Code(s): I50.31 - Acute diastolic (congestive) heart failure Code(s): I50.9 - Heart failure, unspecified Status: Acute (2) Diabetes: Code(s): E11.9 - Type 2 diabetes mellitus without complications Status: Acute (3) Diabetes mellitus with chronic kidney disease: Code(s): E11.22 - Type 2 diabetes mellitus with diabetic chronic kidney disease Status: Chronic (4) Respiratory failure with hypoxia: Code(s): J96.91 - Respiratory failure, unspecified with hypoxia Status: Acute Assessment and Plan: Patient's respiratory status has been stable since repeat thoracentesis last week. Last chest x-ray showed residual pleural effusion on right and no evidence of pulmonary edema. MRSA screening pending. Plan: Continue with supportive care, monitor respiratory status, out of bed to chair. (5) Pleural effusion: Code(s): J90 - Pleural effusion, not elsewhere classified Status: Acute (6) Paroxysmal atrial fibrillation: Code(s): I48.0 - Paroxysmal atrial fibrillation Status: Chronic Subjective Date/time seen: 01/09/23 08:36 Interval history: Patient is in no new respiratory symptoms. Denied use BiPAP last night. Remaining on supplemental oxygen 2 liters/minute. Review of Systems Review of Systems: All systems reviewed & are unremarkable except as noted in HPI and below (HPI and below) Exam Narrative: GENERAL APPEARANCE: Well developed, well nourished, alert and cooperative, and appears to be in mild respiratory distress while on supplemental oxygen via nasal cannula at 2 liters/minute. HEENT: Sclerae anicteric and conjunctivae pink and moist. Extraocular movements were intact and pupils were equal. Dry oral mucosa NECK: Supple. There was no thyroid enlargement, and no tenderness, or masses were felt. CHEST: Normal AP diameter and normal contour without any kyphoscoliosis. LUNGS: Dullness to percussion at the right base posteriorly, rare rhonchi bilaterally no wheezing CARDIAC: There was a irregular rate and rhythm without any murmurs. ABDOMEN: Soft and nontender with normal bowel sounds. There was no organomegaly. LYMPH NODES: No lymphadenopathy was appreciated in the neck. 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 Normal affect. Objective Data Vital Signs Vital Signs: Vital Signs - 24 hr 01/08/23 08:39 01/08/23 09:05 01/08/23 12:00 Temperature 36.3 C L Pulse Rate 96 79 Respiratory Rate 24 H Blood Pressure 96/71 L Pulse Oximetry 99 97 Oxygen Delivery Nasal Cannula Oxygen Flow Rate 2 Fraction of Inspired Oxygen 01/08/23 13:01 01/08/23 12:00 01/08/23 14:39 Temperature Pulse Rate 83 70 78 Respiratory Rate 20 Blood Pressure Pulse Oximetry Oxygen Delivery Oxygen Flow Rate Fraction of Inspired Oxygen 01/08/23 14:41 01/08/23 14:53 01/08/23 16:00 Temperature Pulse Rate 77 70 Respiratory Rate 20 Blood Pressure Pulse Oximetry 97 Oxygen Delivery Nasal Cannula Oxygen Flow Rate 2 Fraction of Inspired Oxygen 01/08/23 16:00 01/08/23 16:56 01/08/23 20:13 Temperature 36.5 C Pulse Rate 100 76 79 Respiratory Rate 16 20 Blood Pressure 94/54 L Pulse Oximetry 100 Oxygen Delivery Oxygen Flow Rate Fraction of Inspired Oxygen 01/08/23 20:15 01/08/23 20:25 01/08/23 20:00 Temperature 36.6 C Pulse Rate 82 80 Respiratory Rate 20 16 Blood Pressure 95/69 L Pulse Oximetry 96 100 Oxygen Delivery Nasal Cannula Oxygen Flow Rate 2 Fraction of Inspired Oxygen 01/08/23 20:00 01/09/23 00:00 01/08/23 20:00 Temperature 36.3 C L Pulse Rate 96 75 Respiratory Rate 14 Blood Pressure 95/67 L Pulse Oximetry 96 93 Oxygen Delivery Na
--- NOTE | 2023-01-09 09:21 | PCNWS ---
Weekly nutritional screen. Patient is tolerating current Renal diet with adequate intake, 75-100%. No weight loss reported. No nutritional needs at this time. Had heart cath.
[2023-01-09] MEDS: FLUTICASONE PROPIONATE 0.05% NA SPR 16 GM BTL (*BKC) 1 SPRAY NASAL ×2 (09:38→21:58)
[2023-01-09] MEDS: PYRIDOXINE HCL 50 MG TABLET PO (09:39)
[2023-01-09] MEDS: busPIRone HCL 10 MG TABLET PO ×2 (09:39→17:41)
[2023-01-09] MEDS: ASPIRIN 81 MG ENTERIC TABLET PO (09:39)
[2023-01-09] MEDS: busPIRone HCL 5 MG TABLET PO ×2 (09:39→17:41)
[2023-01-09] MEDS: METOPROLOL TARTRATE 50 MG TAB 100 MG PO ×2 (09:39→21:59)
[2023-01-09] MEDS: PANTOPRAZOLE SODIUM IV 40 MG VIAL IV PUSH ×2 (09:40→21:55)
[2023-01-09] MEDS: AMIODARONE HCL 200 MG TABLET 400 MG PO ×2 (09:40→17:40)
[2023-01-09] MEDS: APIXABAN 5 MG TABLET PO ×2 (09:41→21:54)
[2023-01-09] MEDS: ASCORBIC ACID 500 MG TABLET PO (09:41)
[2023-01-09] MEDS: ISOSORBIDE MONONITRATE 30 MG TAB.ER.24H PO (09:43)
[2023-01-09] MEDS: FAMOTIDINE 20 MG TABLET PO ×2 (09:43→22:00)
[2023-01-09] MEDS: polyethylene glycoL 3350 17 GM POWD.PACK PO (09:43)
[2023-01-09] MEDS: metOLazone 5 MG TABLET 10 MG PO ×2 (09:43→17:40)
[2023-01-09] MEDS: BUMETANIDE INJ 2.5 MG/10 ML VIAL 2 MG IV PUSH ×2 (09:44→17:41)
[2023-01-09] MEDS: TOLNAFTATE 1% POWDER 45 GM BTL 1 APPLIC TOPICAL ×2 (09:50→21:55)
[2023-01-09] MEDS: traMADol HCL (*CRX) 50 MG TABLET 100 MG PO ×2 (09:59→22:22)
--- NOTE | 2023-01-09 10:56 | PM.IMPN ---
Progress Note: A&P Assessment and Plan (1) CHF (congestive heart failure): Qualifiers: Heart failure chronicity: acute Heart failure type: diastolic Qualified Code(s): I50.31 - Acute diastolic (congestive) heart failure Code(s): I50.9 - Heart failure, unspecified Status: Acute Assessment and Plan: Continue volume removal with dialysis. Appreciate renal input (2) Respiratory failure with hypoxia: Code(s): J96.91 - Respiratory failure, unspecified with hypoxia Status: Acute Assessment and Plan: Secondary to volume overload. Continue hemodialysis. (3) Acute renal failure superimposed on chronic kidney disease: Code(s): N17.9 - Acute kidney failure, unspecified; N18.9 - Chronic kidney disease, unspecified Status: Acute Assessment and Plan: Hemodialysis. (4) HTN (hypertension): Code(s): I10 - Essential (primary) hypertension Status: Acute Assessment and Plan: Stable (5) Anemia, chronic disease: Code(s): D63.8 - Anemia in other chronic diseases classified elsewhere Status: Acute Assessment and Plan: Monitor hemoglobin (6) Diabetes: Code(s): E11.9 - Type 2 diabetes mellitus without complications Status: Acute Assessment and Plan: Blood sugars reviewed and adequately controlled (7) Paroxysmal atrial fibrillation: Code(s): I48.0 - Paroxysmal atrial fibrillation Status: Chronic Assessment and Plan: Sinus rhythm. On apixaban. On metoprolol . Rate not controlled amiodarone Subjective Date/time seen: 01/09/23 10:56 Interval history: doing well, no new complaints. Breathing is remaining stable. 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 Abdomen protuberant but soft nontender with good bowel sounds no palpable masses Musculoskeletal right BKA as noted Objective Data Vital Signs Vital Signs: Vital Signs - 24 hr 01/08/23 12:00 01/08/23 13:01 01/08/23 12:00 Temperature 97.4 F L Pulse Rate 79 83 70 Respiratory Rate 24 H Blood Pressure 96/71 L Pulse Oximetry 97 Oxygen Delivery Oxygen Flow Rate Fraction of Inspired Oxygen 01/08/23 14:39 01/08/23 14:41 01/08/23 14:53 Temperature Pulse Rate 78 77 Respiratory Rate 20 20 Blood Pressure Pulse Oximetry 97 Oxygen Delivery Nasal Cannula Oxygen Flow Rate 2 Fraction of Inspired Oxygen 01/08/23 16:00 01/08/23 16:00 01/08/23 16:56 Temperature 97.7 F Pulse Rate 70 100 76 Respiratory Rate 16 Blood Pressure 94/54 L Pulse Oximetry 100 Oxygen Delivery Oxygen Flow Rate Fraction of Inspired Oxygen 01/08/23 20:13 01/08/23 20:15 01/08/23 20:25 Temperature Pulse Rate 79 82 Respiratory Rate 20 20 Blood Pressure Pulse Oximetry 96 Oxygen Delivery Nasal Cannula Oxygen Flow Rate 2 Fraction of Inspired Oxygen 01/08/23 20:00 01/08/23 20:00 01/09/23 00:00 Temperature 98 F 97.3 F L Pulse Rate 80 96 Respiratory Rate 16 14 Blood Pressure 95/69 L 95/67 L Pulse Oximetry 100 96 93 Oxygen Delivery Nasal Cannula Oxygen Flow Rate 2 Fraction of Inspired Oxygen 01/08/23 20:00 01/09/23 00:00 01/09/23 04:00 Temperature Pulse Rate 75 90 64 Respiratory Rate Blood Pressure Pulse Oximetry Oxygen Delivery Oxygen Flow Rate Fraction of Inspired Oxygen 01/09/23 04:00 01/09/23 07:40 01/09/23 08:14 Temperature 97.4 F L 97.8 F Pulse Rate 69 78 78 Respiratory Rate 16 16 20 Blood Pressure 80/49 L 103/63 Pulse Oximetry 92 100 96 Oxygen Delivery Nasal Cannula Oxygen Flow Rate 2 Fraction of Inspired Oxygen 28 01/09/23 08:14 01/09/23 08:29 01/09/23 09:39 Tempera
[2023-01-09 11:32] LABS: Glucose Point of Care 206 mg/dl (65-105)
[2023-01-09] MEDS: FERROUS SULFATE 324 MG TABLET PO ×2 (12:06→17:39)
[2023-01-09] MEDS: INSULIN ASPART (*BKC) 100 UNITS/ML SUB-Q (12:06)
--- NOTE | 2023-01-09 12:45 | P.PNNP_ITS ---
Progress Note: A&P Assessment and Plan (1) JOSE M (acute kidney injury): Code(s): N17.9 - Acute kidney failure, unspecified Status: Acute Assessment and Plan: * due to ongoing attempts at diuresis with high dose diuretics * however, evidence of diuretic resistance noted * evaluation noted: * renal ultrasound normal * urine electrolytes look prerenal (inspite of clear evidence of volume overload) * urine eosinophils negative * serological testing negative to date (JEZ, ANCA, complements, SPEP, UPEP....etc * still making some urine * HD Monday; DUF today for further fluid removal * given necessity of dialysis for ongoing optimization of his fluid status, the patient will likely need outpatient dialysis on discharge * follow repeat labs and UOP for potential recovery (2) Chronic kidney disease, stage IV (severe): Code(s): N18.4 - Chronic kidney disease, stage 4 (severe) Status: Chronic Assessment and Plan: * creatinine has been fluctuating ~ 2.0 - 2.5mg/dl since earlier this year * suspected etiology of CKD due to hypertension, diabetes, and vascular disease * however, his CHF and need for diuresis as well as suspected TIERRA likely playing a role (3) CHF (congestive heart failure): Qualifiers: Heart failure chronicity: acute Heart failure type: diastolic Qualified Code(s): I50.31 - Acute diastolic (congestive) heart failure Code(s): I50.9 - Heart failure, unspecified Status: Acute Assessment and Plan: * acute exacerbation * appears to be right sided heart failure + diastolic dysfunction * Echo results noted -- normal LVSF, EF 50-55%, mild TR, no other significant valve pathology * presented with dyspnea on exertion, abdominal distention and scrotal edema * still making some urine (on diuretics) but not very much * follow volume status * continue fluid removal with HD * Cardiology following (4) Respiratory failure with hypoxia: Code(s): J96.91 - Respiratory failure, unspecified with hypoxia Status: Acute Assessment and Plan: * multifactorial: * possible COPD * suspected TIERRA/OHS * fluid/volume overload * CHF * anemia * Pulmonary following with recommendations noted * follow respiratory status * continue breathing treatments, diuretics, and dialysis/DUF * s/p repeat right horacentesis on 01/05/23 * s/p right heart catheterization (on 01/06/23) with results noted * continue to push fluid removal as tolerated with dialysis + DUF * however, he is already 32L negative since admission!! * Pulmonary following (5) Hypertension: Qualifiers: Hypertension type: primary hypertension Qualified Code(s): I10 - Essential (primary) hypertension Code(s): I10 - Essential (primary) hypertension Status: Chronic Assessment and Plan: * reasonable control * follow trend of hemodynamics (6) Anemia: Qualifiers: Anemia type: unspecified type Qualified Code(s): D64.9 - Anemia, unspecified Code(s): D64.9 - Anemia, unspecified Status: Chronic Assessment and Plan: * partly due to CKD but worsened by acute illness * on Epogen with dialysis * PRBC transfusion per protocol * follow trend of H/H (7) Diabetes mellitus with chronic kidney disease: Code(s): E11.22 - Type 2 diabetes mellitus with diabetic chronic kidney disease Status: Chronic Assessment and Plan: * follow accuchecks * glycemic control per hospitalists Will continue t
--- NOTE | 2023-01-09 12:45 | PM.PNNEP ---
Progress Note: A&P Assessment and Plan (1) JOSE M (acute kidney injury): Code(s): N17.9 - Acute kidney failure, unspecified Status: Acute Assessment and Plan: due to ongoing attempts at diuresis with high dose diuretics however, evidence of diuretic resistance noted evaluation noted: renal ultrasound normal urine electrolytes look prerenal (inspite of clear evidence of volume overload) urine eosinophils negative serological testing negative to date (JEZ, ANCA, complements, SPEP, UPEP....etc still making some urine HD Monday; DUF today for further fluid removal given necessity of dialysis for ongoing optimization of his fluid status, the patient will likely need outpatient dialysis on discharge follow repeat labs and UOP for potential recovery (2) Chronic kidney disease, stage IV (severe): Code(s): N18.4 - Chronic kidney disease, stage 4 (severe) Status: Chronic Assessment and Plan: creatinine has been fluctuating ~ 2.0 - 2.5mg/dl since earlier this year suspected etiology of CKD due to hypertension, diabetes, and vascular disease however, his CHF and need for diuresis as well as suspected TIERRA likely playing a role (3) CHF (congestive heart failure): Qualifiers: Heart failure chronicity: acute Heart failure type: diastolic Qualified Code(s): I50.31 - Acute diastolic (congestive) heart failure Code(s): I50.9 - Heart failure, unspecified Status: Acute Assessment and Plan: acute exacerbation appears to be right sided heart failure + diastolic dysfunction Echo results noted -- normal LVSF, EF 50-55%, mild TR, no other significant valve pathology presented with dyspnea on exertion, abdominal distention and scrotal edema still making some urine (on diuretics) but not very much follow volume status continue fluid removal with HD Cardiology following (4) Respiratory failure with hypoxia: Code(s): J96.91 - Respiratory failure, unspecified with hypoxia Status: Acute Assessment and Plan: multifactorial: possible COPD suspected TIERRA/OHS fluid/volume overload CHF anemia Pulmonary following with recommendations noted follow respiratory status continue breathing treatments, diuretics, and dialysis/DUF s/p repeat right horacentesis on 01/05/23 s/p right heart catheterization (on 01/06/23) with results noted continue to push fluid removal as tolerated with dialysis + DUF however, he is already 32L negative since admission!! Pulmonary following (5) Hypertension: Qualifiers: Hypertension type: primary hypertension Qualified Code(s): I10 - Essential (primary) hypertension Code(s): I10 - Essential (primary) hypertension Status: Chronic Assessment and Plan: reasonable control follow trend of hemodynamics (6) Anemia: Qualifiers: Anemia type: unspecified type Qualified Code(s): D64.9 - Anemia, unspecified Code(s): D64.9 - Anemia, unspecified Status: Chronic Assessment and Plan: partly due to CKD but worsened by acute illness on Epogen with dialysis PRBC transfusion per protocol follow trend of H/H (7) Diabetes mellitus with chronic kidney disease: Code(s): E11.22 - Type 2 diabetes mellitus with diabetic chronic kidney disease Status: Chronic Assessment and Plan: follow accuchecks glycemic control per hospitalists Will continue to follow. Subjective Date/time seen: 01/09/23 12:45 Interval history: Follow-up for acute kidney injury on chronic kidney disease along with volume overload. On schedule for dry ultrafiltration treatment this afternoon for further fluid removal as tolerated; breathing seems a bit better with interventions to date; no new issues/events overnight or earlier this morning; major complaint at the time of my visit was on/off nerve pain in his lower extremity. Exam Narrative:
--- NOTE | 2023-01-09 13:55 | PC.NURSE ---
Patient to dialysis @ [id number]
[2023-01-09 14:18] LABS: Basophils Percent Auto 0.5 % (0.2-1.2); Eosinophils Absolute Auto 0.1 K/mm3 (0-0.3); Eosinophils Percent Auto 1.3 % (0-4.4); Hematocrit 26.6 % (42.0-52.0); Hemoglobin 7.5 g/dL (14.0-18.0); Immature Granulocyte Absolute 0.03 K/mm3 (0.00-0.031); Immature Granulocyte Percent A 0.5 % (0-0.5); Lymphocytes Absolute Auto 0.36 K/mm3 (0.9-3.2); Lymphocytes Percent Auto 5.9 % (18.3-44.2); Mean Corpuscular HGB Conc 28.2 g/dl (32-36); Mean Corpuscular Hemoglobin 23.7 pg (26-34); Mean Corpuscular Volume 84.2 fl (80-100); Mean Platelet Volume 10.1 fl (7.4-10.4); Monocytes Absolute Auto 0.4 K/mm3 (0.1-0.6); Monocytes Percent Auto 6.6 % (2.6-8.5); Neutrophils Absolute Auto 5.2 K/mm3 (1.3-6.7); Neutrophils Percent Auto 85.2 % (45.5-73.1); Platelet Count Result 220 k/mm3 (150-375); Red Blood Count 3.16 M/mm3 (4.6-6.20); Red Cell Distribution Width 18.4 % (11.5-14.5); White Blood Count 6.1 K/mm3 (4.5-10.0)
[2023-01-09 14:21] LABS: Alanine Aminotransferase 13 U/L (6-50); Albumin Level 3.4 g/dL (3.5-5.1); Alkaline Phosphatase 151 U/L (38-126); Anion Gap 9 mmol/L (8-16); Aspartate Amino Transferase 18 U/L (17-59); Bilirubin,Total 0.6 mg/dL (0.2-1.3); Blood Urea Nitrogen 49 mg/dL (9-20); Calcium 8.1 mg/dL (8.4-10.2); Carbon Dioxide 28 mmol/L (22-30); Chloride 99 mmol/L (98-107); Estimated CRCL calculation 17 ml/min; Estimated Glomerular Filt Rate 13; Glucose 158 mg/dL (65-110); Phosphorus 6.2 mg/dL (2.5-4.5); Potassium 4.8 mmol/L (3.4-5.0); Sodium 136 mmol/L (137-145)
[2023-01-09 14:37] LABS: Platelet Estimate Adequate (Adequate)
--- NOTE | 2023-01-09 14:37 | PM.PNCARD ---
Progress Note: A&P Assessment and Plan (1) Respiratory failure with hypoxia: Code(s): J96.91 - Respiratory failure, unspecified with hypoxia Status: Acute Assessment and Plan: . (2) Atrial flutter: Code(s): I48.92 - Unspecified atrial flutter Status: Acute Assessment and Plan: As above, amiodarone, Eliquis. Heart rate reasonably controlled. (3) CHF (congestive heart failure): Qualifiers: Heart failure chronicity: acute Heart failure type: diastolic Qualified Code(s): I50.31 - Acute diastolic (congestive) heart failure Code(s): I50.9 - Heart failure, unspecified Status: Acute Assessment and Plan: Patient remains on Bumex 2 mg IV b.i.d.. Transition to Bumex 2 mg p.o. b.i.d. for additional diuresis in addition to volume removal with dialysis. Continue to monitor volume status closely. Chest x-ray yesterday reveals worsening opacities in the right lung per radiology. (4) Paroxysmal atrial fibrillation: Code(s): I48.0 - Paroxysmal atrial fibrillation Status: Chronic Assessment and Plan: Patient has been in atrial flutter with variable AV block. Heart rate better controlled on amiodarone, remains on 4 mg t.i.d. since 01/05. Reduce amiodarone to 400 mg b.i.d. for 3-4 more days then 400 mg daily. Continue apixaban 5 mg twice daily for folic stroke risk reduction. (5) Anemia: Qualifiers: Anemia type: unspecified type Qualified Code(s): D64.9 - Anemia, unspecified Code(s): D64.9 - Anemia, unspecified Status: Chronic Assessment and Plan: Patient remains significantly anemic but stable overall. No doubt contributing to his shortness of breath to some degree. Monitor for bleeding. (6) Chronic respiratory failure with hypoxia, on home oxygen therapy: Code(s): J96.11 - Chronic respiratory failure with hypoxia; Z99.81 - Dependence on supplemental oxygen Status: Acute Assessment and Plan: Diminished breath sounds in right lung, clear at the apex much better aeration on the left. Afebrile. -Continue with volume removal with dialysis in Bumex. 2 L removed previously, aim for an additional 2 L as tolerated with HD (7) Hypertension associated with diabetes: Code(s): E11.59 - Type 2 diabetes mellitus with other circulatory complications; I15.2 - Hypertension secondary to endocrine disorders Status: Acute Assessment and Plan: BP overall fairly stable. Hypotensive this morning. Monitor blood pressure after hemodialysis. (8) Chronic anticoagulation: Code(s): Z79.01 - penitentiary (current) use of anticoagulants Status: Chronic Assessment and Plan: Continue Eliquis 5 mg twice daily. Monitor for bleeding. Follow H&H. Chronic anemia hemoglobin 7.5. (9) ESRD on hemodialysis: Code(s): N18.6 - End stage renal disease; Z99.2 - Dependence on renal dialysis Status: Acute Assessment and Plan: As above continue hemodialysis per Nephrology. Volume removal with hemodialysis and IV Bumex. Patient not making much urine overall. Subjective Date/time seen: Date of service: 01/09/23 14:37 Interval history: Reason for visit: Decompensated heart failure, atrial flutter HPI: Patient is a 57-year-old male who has a history of coronary disease.? Details are not known.? He follows with [facility].? He has had progressive lower extremity and scrotal edema as well as worsening shortness of breath over the past several months.? Symptoms worsened to the point that his testicles and foreskin were swollen and painful and decided to come to the hospital for further evaluation.? He was started on IV diuretics and was found to be in volume overload and is already feeling a little bit better with less swelling and less shortness of breath.? He does describe some orthopnea.? No chest pain.? No syncope, presyncope, paroxysmal nocturnal dyspnea.? Does have occasional palpit
[2023-01-09 14:38] LABS: Anisocytosis 1+ (NORMAL)
[2023-01-09 14:39] LABS: Ovalocytes 1+ (NORMAL)
[2023-01-09 14:40] LABS: Hypochromasia 2+ (NORMAL); Schistocytes Rare (NORMAL)
[2023-01-09 18:29] LABS: Glucose Point of Care 122 mg/dl (65-105)
[2023-01-09] MEDS: AMITRIPTYLINE HCL 25 MG TABLET 50 MG PO (21:54)
[2023-01-09] MEDS: ATORVASTATIN 40 MG TABLET PO (21:57)
[2023-01-09] MEDS: QUEtiapine FUMARATE 12.5 MG TABLET PO (22:01)
[2023-01-09] MEDS: traZODone HCL 50 MG TABLET 100 MG PO (22:02)
[2023-01-09] MEDS: hydrALAZINE HCL 50 MG TABLET 100 MG PO (22:03)
[2023-01-09] MEDS: INSULIN GLARGINE (*BKC) 100 UNITS/ML 10 UNITS SUB-Q (22:20)
[2023-01-09 22:36] LABS: Glucose Point of Care 153 mg/dl (65-105)
[2023-01-10] VITALS (32 sets, daily range): BP systolic 90–136; BP diastolic 55–76; PULSE 66–88; RESP 14–22; TEMP 36–37; O2SAT 90–99
[2023-01-10] MEDS: IPRATROPIUM BR 0.02% INH SOLN 0.5 MG/2.5 ML VIAL INHALATION ×4 (02:06→19:40)
[2023-01-10] MEDS: LEVALBUTEROL NEB 1.25 MG/3 ML INHALATION ×4 (02:07→19:40)
[2023-01-10] MEDS: GABAPENTIN 100 MG CAPSULE PO ×3 (05:38→21:17)
[2023-01-10] MEDS: hydrALAZINE HCL 50 MG TABLET 100 MG PO ×3 (05:38→21:17)
[2023-01-10] MEDS: LEVOTHYROXINE SODIUM 100 MCG TABLET PO (05:39)
[2023-01-10 06:32] LABS: Basophils Absolute Auto 0.1 K/mm3 (0.0-0.1); Basophils Percent Auto 0.8 % (0.2-1.2); Eosinophils Absolute Auto 0.1 K/mm3 (0-0.3); Eosinophils Percent Auto 1.4 % (0-4.4); Hematocrit 28.5 % (42.0-52.0); Hemoglobin 8.2 g/dL (14.0-18.0); Immature Granulocyte Absolute 0.03 K/mm3 (0.00-0.031); Immature Granulocyte Percent A 0.4 % (0-0.5); Lymphocytes Absolute Auto 0.33 K/mm3 (0.9-3.2); Lymphocytes Percent Auto 4.6 % (18.3-44.2); Mean Corpuscular HGB Conc 28.8 g/dl (32-36); Mean Corpuscular Hemoglobin 24.6 pg (26-34); Mean Corpuscular Volume 85.3 fl (80-100); Mean Platelet Volume 10.1 fl (7.4-10.4); Monocytes Absolute Auto 0.5 K/mm3 (0.1-0.6); Monocytes Percent Auto 6.5 % (2.6-8.5); Neutrophils Absolute Auto 6.2 K/mm3 (1.3-6.7); Neutrophils Percent Auto 86.3 % (45.5-73.1); Platelet Count Result 222 k/mm3 (150-375); Red Blood Count 3.34 M/mm3 (4.6-6.20); Red Cell Distribution Width 18.5 % (11.5-14.5); White Blood Count 7.2 K/mm3 (4.5-10.0)
[2023-01-10 06:43] LABS: Alanine Aminotransferase 12 U/L (6-50); Albumin Level 3.5 g/dL (3.5-5.1); Alkaline Phosphatase 158 U/L (38-126); Anion Gap 10 mmol/L (8-16); Aspartate Amino Transferase 17 U/L (17-59); Bilirubin,Total 0.6 mg/dL (0.2-1.3); Blood Urea Nitrogen 55 mg/dL (9-20); Calcium 8.3 mg/dL (8.4-10.2); Carbon Dioxide 25 mmol/L (22-30); Chloride 100 mmol/L (98-107); Estimated CRCL calculation 14 ml/min; Estimated Glomerular Filt Rate 11; Glucose 144 mg/dL (65-110); Phosphorus 6.9 mg/dL (2.5-4.5); Potassium 4.8 mmol/L (3.4-5.0); Sodium 135 mmol/L (137-145)
[2023-01-10 07:36] LABS: Glucose Point of Care 139 mg/dl (65-105)
[2023-01-10 07:48] LABS: Anisocytosis 1+ (NORMAL); Hypochromasia 1+ (NORMAL); Ovalocytes 1+ (NORMAL); Platelet Estimate Adequate (Adequate)
[2023-01-10 07:49] LABS: Schistocytes Rare (NORMAL)
[2023-01-10] MEDS: PYRIDOXINE HCL 50 MG TABLET PO (08:17)
[2023-01-10] MEDS: FAMOTIDINE 20 MG TABLET PO ×2 (08:17→21:17)
[2023-01-10] MEDS: ASPIRIN 81 MG ENTERIC TABLET PO (08:17)
[2023-01-10] MEDS: ASCORBIC ACID 500 MG TABLET PO (08:17)
[2023-01-10] MEDS: APIXABAN 5 MG TABLET PO ×2 (08:17→21:16)
[2023-01-10] MEDS: busPIRone HCL 5 MG TABLET PO ×3 (08:18→18:24)
[2023-01-10] MEDS: busPIRone HCL 10 MG TABLET PO ×3 (08:18→18:24)
[2023-01-10] MEDS: ISOSORBIDE MONONITRATE 30 MG TAB.ER.24H PO (08:18)
[2023-01-10] MEDS: FLUTICASONE PROPIONATE 0.05% NA SPR 16 GM BTL (*BKC) 1 SPRAY NASAL ×2 (08:19→21:18)
[2023-01-10] MEDS: polyethylene glycoL 3350 17 GM POWD.PACK PO (08:19)
[2023-01-10] MEDS: PANTOPRAZOLE SODIUM IV 40 MG VIAL IV PUSH ×2 (08:19→21:16)
[2023-01-10] MEDS: TOLNAFTATE 1% POWDER 45 GM BTL 1 APPLIC TOPICAL ×2 (08:20→21:34)
[2023-01-10] MEDS: UMECLIDINIUM/VILANTEROL 62.5-25 MCG ELLIPTA 1 PUFF INHALATION (08:53)
--- NOTE | 2023-01-10 10:15 | P.PNNP_ITS ---
Progress Note: A&P Assessment and Plan (1) JOSE M (acute kidney injury): Code(s): N17.9 - Acute kidney failure, unspecified Status: Acute Assessment and Plan: * due to ongoing attempts at diuresis with high dose diuretics * however, evidence of diuretic resistance noted * evaluation noted: * renal ultrasound normal * urine electrolytes look prerenal (inspite of clear evidence of volume overload) * urine eosinophils negative * serological testing negative to date (JEZ, ANCA, complements, SPEP, UPEP....etc * still making some urine * HD today and continue T/T/S schedule for nowl * given necessity of dialysis for ongoing optimization of his fluid status, the patient will likely need outpatient dialysis on discharge * follow repeat labs and UOP for potential recovery (2) Chronic kidney disease, stage IV (severe): Code(s): N18.4 - Chronic kidney disease, stage 4 (severe) Status: Chronic Assessment and Plan: * creatinine has been fluctuating ~ 2.0 - 2.5mg/dl since earlier this year * suspected etiology of CKD due to hypertension, diabetes, and vascular disease * however, his CHF and need for diuresis as well as suspected TIERRA likely playing a role (3) CHF (congestive heart failure): Qualifiers: Heart failure chronicity: acute Heart failure type: diastolic Qualified Code(s): I50.31 - Acute diastolic (congestive) heart failure Code(s): I50.9 - Heart failure, unspecified Status: Acute Assessment and Plan: * acute exacerbation * appears to be right sided heart failure + diastolic dysfunction * Echo results noted -- normal LVSF, EF 50-55%, mild TR, no other significant valve pathology * presented with dyspnea on exertion, abdominal distention and scrotal edema * still making some urine (on diuretics) but not very much * follow volume status * continue fluid removal with HD (and DUF as needed) * Cardiology following (4) Respiratory failure with hypoxia: Code(s): J96.91 - Respiratory failure, unspecified with hypoxia Status: Acute Assessment and Plan: * multifactorial: * possible COPD * suspected TIERRA/OHS * fluid/volume overload * CHF * anemia * Pulmonary following with recommendations noted * follow respiratory status * continue breathing treatments, diuretics, and dialysis/DUF * s/p repeat right horacentesis on 01/05/23 * s/p right heart catheterization (on 01/06/23) with results noted * continue to push fluid removal as tolerated with dialysis + DUF * however, he is already 32L negative since admission!! * Pulmonary following (5) Hypertension: Qualifiers: Hypertension type: primary hypertension Qualified Code(s): I10 - Essential (primary) hypertension Code(s): I10 - Essential (primary) hypertension Status: Chronic Assessment and Plan: * reasonable control * follow trend of hemodynamics (6) Anemia: Qualifiers: Anemia type: unspecified type Qualified Code(s): D64.9 - Anemia, unspecified Code(s): D64.9 - Anemia, unspecified Status: Chronic Assessment and Plan: * partly due to CKD but worsened by acute illness * on Epogen with dialysis * PRBC transfusion per protocol * follow trend of H/H (7) Diabetes mellitus with chronic kidney disease: Code(s): E11.22 - Type 2 diabetes mellitus with diabetic chronic kidney disease Status: Chronic Assessment and Plan: * follow accuchecks * glycemic control per hospitalists
--- NOTE | 2023-01-10 10:15 | PM.PNNEP ---
Progress Note: A&P Assessment and Plan (1) JOSE M (acute kidney injury): Code(s): N17.9 - Acute kidney failure, unspecified Status: Acute Assessment and Plan: due to ongoing attempts at diuresis with high dose diuretics however, evidence of diuretic resistance noted evaluation noted: renal ultrasound normal urine electrolytes look prerenal (inspite of clear evidence of volume overload) urine eosinophils negative serological testing negative to date (JEZ, ANCA, complements, SPEP, UPEP....etc still making some urine HD today and continue T/T/S schedule for nowl given necessity of dialysis for ongoing optimization of his fluid status, the patient will likely need outpatient dialysis on discharge follow repeat labs and UOP for potential recovery (2) Chronic kidney disease, stage IV (severe): Code(s): N18.4 - Chronic kidney disease, stage 4 (severe) Status: Chronic Assessment and Plan: creatinine has been fluctuating ~ 2.0 - 2.5mg/dl since earlier this year suspected etiology of CKD due to hypertension, diabetes, and vascular disease however, his CHF and need for diuresis as well as suspected TIERRA likely playing a role (3) CHF (congestive heart failure): Qualifiers: Heart failure chronicity: acute Heart failure type: diastolic Qualified Code(s): I50.31 - Acute diastolic (congestive) heart failure Code(s): I50.9 - Heart failure, unspecified Status: Acute Assessment and Plan: acute exacerbation appears to be right sided heart failure + diastolic dysfunction Echo results noted -- normal LVSF, EF 50-55%, mild TR, no other significant valve pathology presented with dyspnea on exertion, abdominal distention and scrotal edema still making some urine (on diuretics) but not very much follow volume status continue fluid removal with HD (and DUF as needed) Cardiology following (4) Respiratory failure with hypoxia: Code(s): J96.91 - Respiratory failure, unspecified with hypoxia Status: Acute Assessment and Plan: multifactorial: possible COPD suspected TIERRA/OHS fluid/volume overload CHF anemia Pulmonary following with recommendations noted follow respiratory status continue breathing treatments, diuretics, and dialysis/DUF s/p repeat right horacentesis on 01/05/23 s/p right heart catheterization (on 01/06/23) with results noted continue to push fluid removal as tolerated with dialysis + DUF however, he is already 32L negative since admission!! Pulmonary following (5) Hypertension: Qualifiers: Hypertension type: primary hypertension Qualified Code(s): I10 - Essential (primary) hypertension Code(s): I10 - Essential (primary) hypertension Status: Chronic Assessment and Plan: reasonable control follow trend of hemodynamics (6) Anemia: Qualifiers: Anemia type: unspecified type Qualified Code(s): D64.9 - Anemia, unspecified Code(s): D64.9 - Anemia, unspecified Status: Chronic Assessment and Plan: partly due to CKD but worsened by acute illness on Epogen with dialysis PRBC transfusion per protocol follow trend of H/H (7) Diabetes mellitus with chronic kidney disease: Code(s): E11.22 - Type 2 diabetes mellitus with diabetic chronic kidney disease Status: Chronic Assessment and Plan: follow accuchecks glycemic control per hospitalists Will continue to follow. Subjective Date/time seen: 01/10/23 10:15 Interval history: Tolerated DUF treatment yesterday afternoon and hemodialysis treatment at the current time (seen on HD at 10:05AM); still with some mild dyspnea but in no apparent distress with relative stabiliy in respiratory status; no other acute issues/events overnight or earlier this morning. Exam Narrative: General: middle aged male in NAD Heart: normal S1 and S2; no rub Lungs:
[2023-01-10] MEDS: EPOETIN ALFA-EPBX 20,000 UNITS/ML VIAL 20000 UNITS IV PUSH (10:39)
--- NOTE | 2023-01-10 10:52 | PM.IMPN ---
Progress Note: A&P Assessment and Plan (1) CHF (congestive heart failure): Qualifiers: Heart failure chronicity: acute Heart failure type: diastolic Qualified Code(s): I50.31 - Acute diastolic (congestive) heart failure Code(s): I50.9 - Heart failure, unspecified Status: Acute Assessment and Plan: Continue volume removal with dialysis. Appreciate renal input (2) Respiratory failure with hypoxia: Code(s): J96.91 - Respiratory failure, unspecified with hypoxia Status: Acute Assessment and Plan: Secondary to volume overload. Continue hemodialysis. (3) Acute renal failure superimposed on chronic kidney disease: Code(s): N17.9 - Acute kidney failure, unspecified; N18.9 - Chronic kidney disease, unspecified Status: Acute Assessment and Plan: Hemodialysis. (4) HTN (hypertension): Code(s): I10 - Essential (primary) hypertension Status: Acute Assessment and Plan: Stable (5) Anemia, chronic disease: Code(s): D63.8 - Anemia in other chronic diseases classified elsewhere Status: Acute Assessment and Plan: Monitor hemoglobin (6) Diabetes: Code(s): E11.9 - Type 2 diabetes mellitus without complications Status: Acute Assessment and Plan: Blood sugars reviewed and adequately controlled (7) Paroxysmal atrial fibrillation: Code(s): I48.0 - Paroxysmal atrial fibrillation Status: Chronic Assessment and Plan: On apixaban. On metoprolol, Amiodarone . rates controlled appreciate cardiology input. Subjective Date/time seen: 01/10/23 10:52 Interval history: No complaints. 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 Abdomen protuberant but soft nontender with good bowel sounds no palpable masses Musculoskeletal right BKA as noted Objective Data Vital Signs Vital Signs: Vital Signs - 24 hr 01/09/23 12:00 01/09/23 14:17 01/09/23 13:41 Temperature 97.3 F L 98.2 F Pulse Rate 77 82 71 Respiratory Rate 24 H 20 20 Blood Pressure 106/78 108/71 Pulse Oximetry 98 Oxygen Delivery Oxygen Flow Rate 01/09/23 13:49 01/09/23 13:50 01/09/23 14:00 Temperature Pulse Rate 78 76 Respiratory Rate Blood Pressure 108/66 90/66 L Pulse Oximetry Oxygen Delivery Oxygen Flow Rate 2 01/09/23 14:20 01/09/23 14:40 01/09/23 15:00 Temperature Pulse Rate 76 75 71 Respiratory Rate Blood Pressure 109/57 L 112/69 116/74 Pulse Oximetry Oxygen Delivery Oxygen Flow Rate 01/09/23 15:20 01/09/23 15:40 01/09/23 16:00 Temperature Pulse Rate 72 68 72 Respiratory Rate Blood Pressure 119/72 109/67 107/66 Pulse Oximetry Oxygen Delivery Oxygen Flow Rate 01/09/23 16:20 01/09/23 16:40 01/09/23 16:51 Temperature Pulse Rate 74 75 74 Respiratory Rate Blood Pressure 102/53 L 97/61 L 103/63 Pulse Oximetry Oxygen Delivery Oxygen Flow Rate 01/09/23 16:57 01/09/23 17:40 01/09/23 12:00 Temperature 97.9 F Pulse Rate 71 74 68 Respiratory Rate 20 Blood Pressure 100/69 Pulse Oximetry Oxygen Delivery Oxygen Flow Rate 01/09/23 16:00 01/09/23 20:00 01/09/23 21:59 Temperature 97 F L Pulse Rate 81 64 81 Respiratory Rate 14 Blood Pressure 97/70 L Pulse Oximetry 94 Oxygen Delivery Oxygen Flow Rate 01/09/23 20:00 01/10/23 00:00 01/09/23 23:55 Temperature 97.3 F L Pulse Rate 78 79 81 Respiratory Rate 16 Blood Pressure 94/61 L Pulse Oximetry 95 Oxygen Delivery Oxygen Flow Rate 01/10/23 04:00 01/09/23 20:58 01/09/23 21:05 Temperature Pulse Rate 79 68 71 Respiratory Rate 18 18 Blood Pressure Pulse Oximetry
--- NOTE | 2023-01-10 11:10 | PCPTNOTE ---
The patient treatment was not able to be completed due to patient out of room for dialysis. Will plan to continue treatment per plan of care.
[2023-01-10 12:49] LABS: Glucose Point of Care 103 mg/dl (65-105)
[2023-01-10] MEDS: FERROUS SULFATE 324 MG TABLET PO ×2 (12:51→18:20)
[2023-01-10 16:36] LABS: Glucose Point of Care 157 mg/dl (65-105)
[2023-01-10] MEDS: AMIODARONE HCL 200 MG TABLET 400 MG PO (18:20)
[2023-01-10] MEDS: BUMETANIDE INJ 2.5 MG/10 ML VIAL 2 MG IV PUSH (18:21)
[2023-01-10] MEDS: metOLazone 5 MG TABLET 10 MG PO (18:25)
[2023-01-10] MEDS: traZODone HCL 50 MG TABLET 100 MG PO (21:17)
[2023-01-10] MEDS: ATORVASTATIN 40 MG TABLET PO (21:17)
[2023-01-10] MEDS: AMITRIPTYLINE HCL 25 MG TABLET 50 MG PO (21:17)
[2023-01-10] MEDS: METOPROLOL TARTRATE 50 MG TAB 100 MG PO (21:17)
[2023-01-10] MEDS: QUEtiapine FUMARATE 12.5 MG TABLET PO (21:18)
[2023-01-10] MEDS: INSULIN GLARGINE (*BKC) 100 UNITS/ML 10 UNITS SUB-Q (21:24)
[2023-01-10 21:32] LABS: Glucose Point of Care 242 mg/dl (65-105)
[2023-01-11] VITALS (31 sets, daily range): BP systolic 87–112; BP diastolic 54–68; PULSE 64–100; RESP 14–26; TEMP 36.1–36.7; O2SAT 90–100
[2023-01-11] MEDS: LEVALBUTEROL NEB 1.25 MG/3 ML INHALATION ×4 (01:27→20:31)
[2023-01-11] MEDS: IPRATROPIUM BR 0.02% INH SOLN 0.5 MG/2.5 ML VIAL INHALATION ×4 (01:28→20:31)
[2023-01-11] MEDS: SODIUM CHLORIDE 0.9% IV 1,000 ML 999 ML IV CONT (05:00)
[2023-01-11 05:10] LABS: Basophils Percent Auto 0.6 % (0.2-1.2); Eosinophils Absolute Auto 0.1 K/mm3 (0-0.3); Eosinophils Percent Auto 0.8 % (0-4.4); Hematocrit 26.5 % (42.0-52.0); Hematocrit 26.9 % (42.0-52.0); Hemoglobin 7.7 g/dL (14.0-18.0); Immature Granulocyte Absolute 0.05 K/mm3 (0.00-0.031); Immature Granulocyte Percent A 0.8 % (0-0.5); Lymphocytes Absolute Auto 0.45 K/mm3 (0.9-3.2); Lymphocytes Percent Auto 7.3 % (18.3-44.2); Mean Corpuscular HGB Conc 29.1 g/dl (32-36); Mean Corpuscular Hemoglobin 24.3 pg (26-34); Mean Corpuscular Volume 83.6 fl (80-100); Mean Platelet Volume 9.6 fl (7.4-10.4); Monocytes Absolute Auto 0.5 K/mm3 (0.1-0.6); Monocytes Percent Auto 7.8 % (2.6-8.5); Neutrophils Absolute Auto 5.1 K/mm3 (1.3-6.7); Neutrophils Percent Auto 82.7 % (45.5-73.1); Platelet Count Result 236 k/mm3 (150-375); Red Blood Count 3.17 M/mm3 (4.6-6.20); Red Cell Distribution Width 18.6 % (11.5-14.5); White Blood Count 6.2 K/mm3 (4.5-10.0)
--- NOTE | 2023-01-11 05:10 | P.PNCROSS_ITS ---
Event Note Event Note Event Note: rapid response was called to the patient's room after patient pulled out his Q uinton catheter for hemodialysis. upon arrival to the room come pressure is been applied to site of venous catheter Subjective: I a.m. fine objective: Patient awake alert in bed laying in pool of blood vitals BP: 100/57 oxygen saturation 99% on room air general: Generalized pallor, awake, delirious. HEENT : Head atraumatic normocephalic, PERRLA EOM intact, no JVD, supple. chest: Sites a clear hemostasis achieved respiratory: no obvious distress cardiovascular: No obvious distress extremity: Right BKA central nervous system: Disoriented, delirious. Assessment and plan: 1. Accidental dislodgement of central venous catheter: compression applied to site, hemostasis achieved, H&H stat, type and screen is stat, type and crossmatch 1 unit of packed red blood cells to be transfused.
[2023-01-11 05:15] LABS: Glucose Point of Care 124 mg/dl (65-105)
[2023-01-11 05:31] LABS: Hypochromasia 2+ (NORMAL); Platelet Estimate Adequate (Adequate); Poikilocytosis 2+ (NORMAL)
[2023-01-11 05:32] LABS: Anisocytosis 2+ (NORMAL); Microcytosis 2+ (NORMAL); Ovalocytes 2+ (NORMAL); Stomatocytes 1+ (NORMAL)
[2023-01-11 05:33] LABS: Schistocytes None Seen (NORMAL)
[2023-01-11 05:34] LABS: Alanine Aminotransferase 12 U/L (6-50); Albumin Level 3.2 g/dL (3.5-5.1); Alkaline Phosphatase 150 U/L (38-126); Anion Gap 6 mmol/L (8-16); Aspartate Amino Transferase 17 U/L (17-59); Bilirubin,Total 0.6 mg/dL (0.2-1.3); Blood Urea Nitrogen 33 mg/dL (9-20); Burr Cells 2+ (NORMAL); Calcium 7.9 mg/dL (8.4-10.2); Carbon Dioxide 30 mmol/L (22-30); Chloride 102 mmol/L (98-107); Estimated CRCL calculation 19 ml/min; Estimated Glomerular Filt Rate 15; Glucose 108 mg/dL (65-110); Phosphorus 4.2 mg/dL (2.5-4.5); Potassium 3.7 mmol/L (3.4-5.0); Sodium 138 mmol/L (137-145)
[2023-01-11] MEDS: TUBING, BLOOD PLUM PUMP TUBING 1 EACH XX (06:45)
[2023-01-11] MEDS: SODIUM CHLORIDE 0.9% IV 250 ML 30 ML IV CONT (06:45)
[2023-01-11 07:29] LABS: Glucose Point of Care 110 mg/dl (65-105)
--- NOTE | 2023-01-11 07:55 | PC.NURSE ---
01/10/23 @ 0505: Patient called nurses station stating he had blood everywhere. career placement specialist entered room shortly before this RN, where patient had dialysis catheter removed and a large amount of blood around him. Pressure was applied to site while rapid response was called. Orders given.
[2023-01-11] MEDS: UMECLIDINIUM/VILANTEROL 62.5-25 MCG ELLIPTA 1 PUFF INHALATION (08:54)
[2023-01-11] MEDS: metOLazone 5 MG TABLET 10 MG PO ×2 (09:13→17:19)
[2023-01-11] MEDS: busPIRone HCL 10 MG TABLET PO ×2 (09:13→17:20)
[2023-01-11] MEDS: AMIODARONE HCL 200 MG TABLET 400 MG PO ×2 (09:14→17:21)
[2023-01-11] MEDS: PANTOPRAZOLE SODIUM IV 40 MG VIAL IV PUSH ×2 (09:14→22:09)
[2023-01-11] MEDS: GABAPENTIN 100 MG CAPSULE PO ×2 (09:14→22:09)
[2023-01-11] MEDS: APIXABAN 5 MG TABLET PO ×2 (09:15→22:09)
[2023-01-11] MEDS: PYRIDOXINE HCL 50 MG TABLET PO (09:15)
[2023-01-11] MEDS: FAMOTIDINE 20 MG TABLET PO ×2 (09:15→22:09)
[2023-01-11] MEDS: METOPROLOL TARTRATE 50 MG TAB 100 MG PO (09:15)
[2023-01-11] MEDS: busPIRone HCL 5 MG TABLET PO ×2 (09:15→17:20)
[2023-01-11] MEDS: ASCORBIC ACID 500 MG TABLET PO (09:15)
[2023-01-11] MEDS: ISOSORBIDE MONONITRATE 30 MG TAB.ER.24H PO (09:15)
[2023-01-11] MEDS: ASPIRIN 81 MG ENTERIC TABLET PO (09:16)
[2023-01-11] MEDS: LEVOTHYROXINE SODIUM 100 MCG TABLET PO (09:16)
[2023-01-11 11:41] LABS: Glucose Point of Care 141 mg/dl (65-105)
[2023-01-11 11:50] LABS: Hematocrit 26.2 % (42.0-52.0); Hemoglobin 7.7 g/dL (14.0-18.0)
[2023-01-11 12:45] LABS: Albumin Pleural Fluid 1.6 g/dL
[2023-01-11] MEDS: TOLNAFTATE 1% POWDER 45 GM BTL 1 APPLIC TOPICAL ×2 (13:57→22:17)
[2023-01-11] MEDS: BUMETANIDE INJ 2.5 MG/10 ML VIAL 2 MG IV PUSH ×2 (13:59→17:20)
--- NOTE | 2023-01-11 14:00 | PCOTNOTE ---
Attempted to see pt for Occupational Therapy treatment. Pt states Forget about it... when therapist encouraged pt to participate in therapeutic activities and/or getting out of bed. RN was present and also encouraged pt to participate however, pt keeps eyes close and turns head away from staff. Will continue per POC duration/frequency tomorrow.
--- NOTE | 2023-01-11 14:16 | P.PNNP_ITS ---
Progress Note: A&P Assessment and Plan (1) JOSE M (acute kidney injury): Code(s): N17.9 - Acute kidney failure, unspecified Status: Acute Assessment and Plan: * due to ongoing attempts at diuresis with high dose diuretics * however, evidence of diuretic resistance noted * evaluation noted: * renal ultrasound normal * urine electrolytes look prerenal (inspite of clear evidence of volume overload) * urine eosinophils negative * serological testing negative to date (JEZ, ANCA, complements, SPEP, UPEP....etc * still making some urine * continue T/T/S schedule for now * will need another HD catheter placement * given necessity of dialysis for ongoing optimization of his fluid status, the patient will likely need outpatient dialysis on discharge * follow repeat labs and UOP for potential recovery (2) Chronic kidney disease, stage IV (severe): Code(s): N18.4 - Chronic kidney disease, stage 4 (severe) Status: Chronic Assessment and Plan: * creatinine has been fluctuating ~ 2.0 - 2.5mg/dl since earlier this year * suspected etiology of CKD due to hypertension, diabetes, and vascular disease * however, his CHF and need for diuresis as well as suspected TIERRA likely playing a role (3) CHF (congestive heart failure): Qualifiers: Heart failure chronicity: acute Heart failure type: diastolic Qualified Code(s): I50.31 - Acute diastolic (congestive) heart failure Code(s): I50.9 - Heart failure, unspecified Status: Acute Assessment and Plan: * acute exacerbation * appears to be right sided heart failure + diastolic dysfunction * Echo results noted -- normal LVSF, EF 50-55%, mild TR, no other significant valve pathology * presented with dyspnea on exertion, abdominal distention and scrotal edema * still making some urine (on diuretics) but not very much * follow volume status * continue fluid removal with HD (and DUF as needed) * Cardiology following (4) Respiratory failure with hypoxia: Code(s): J96.91 - Respiratory failure, unspecified with hypoxia Status: Acute Assessment and Plan: * multifactorial: * possible COPD * suspected TIERRA/OHS * fluid/volume overload * CHF * anemia * Pulmonary following with recommendations noted * follow respiratory status * continue breathing treatments, diuretics, and dialysis/DUF * s/p repeat right thoracentesis on 01/05/23 * s/p right heart catheterization (on 01/06/23) with results noted * continue to push fluid removal as tolerated with dialysis + DUF * however, he is already 30L negative since admission!! * Pulmonary following (5) Hypertension: Qualifiers: Hypertension type: primary hypertension Qualified Code(s): I10 - Essential (primary) hypertension Code(s): I10 - Essential (primary) hypertension Status: Chronic Assessment and Plan: * reasonable control * follow trend of hemodynamics (6) Anemia: Qualifiers: Anemia type: unspecified type Qualified Code(s): D64.9 - Anemia, unspecified Code(s): D64.9 - Anemia, unspecified Status: Chronic Assessment and Plan: * partly due to CKD but worsened by acute illness * on Epogen with dialysis * PRBC transfusion per protocol * follow trend of H/H (7) Diabetes mellitus with chronic kidney disease: Code(s): E11.22 - Type 2 diabetes mellitus with diabetic chronic kidney disease Status: Chronic Assessment and Plan: * follow accuchecks * glyce
--- NOTE | 2023-01-11 14:16 | PM.PNNEP ---
Progress Note: A&P Assessment and Plan (1) JOSE M (acute kidney injury): Code(s): N17.9 - Acute kidney failure, unspecified Status: Acute Assessment and Plan: due to ongoing attempts at diuresis with high dose diuretics however, evidence of diuretic resistance noted evaluation noted: renal ultrasound normal urine electrolytes look prerenal (inspite of clear evidence of volume overload) urine eosinophils negative serological testing negative to date (JEZ, ANCA, complements, SPEP, UPEP....etc still making some urine continue T/T/S schedule for now will need another HD catheter placement given necessity of dialysis for ongoing optimization of his fluid status, the patient will likely need outpatient dialysis on discharge follow repeat labs and UOP for potential recovery (2) Chronic kidney disease, stage IV (severe): Code(s): N18.4 - Chronic kidney disease, stage 4 (severe) Status: Chronic Assessment and Plan: creatinine has been fluctuating ~ 2.0 - 2.5mg/dl since earlier this year suspected etiology of CKD due to hypertension, diabetes, and vascular disease however, his CHF and need for diuresis as well as suspected TIERRA likely playing a role (3) CHF (congestive heart failure): Qualifiers: Heart failure chronicity: acute Heart failure type: diastolic Qualified Code(s): I50.31 - Acute diastolic (congestive) heart failure Code(s): I50.9 - Heart failure, unspecified Status: Acute Assessment and Plan: acute exacerbation appears to be right sided heart failure + diastolic dysfunction Echo results noted -- normal LVSF, EF 50-55%, mild TR, no other significant valve pathology presented with dyspnea on exertion, abdominal distention and scrotal edema still making some urine (on diuretics) but not very much follow volume status continue fluid removal with HD (and DUF as needed) Cardiology following (4) Respiratory failure with hypoxia: Code(s): J96.91 - Respiratory failure, unspecified with hypoxia Status: Acute Assessment and Plan: multifactorial: possible COPD suspected TIERRA/OHS fluid/volume overload CHF anemia Pulmonary following with recommendations noted follow respiratory status continue breathing treatments, diuretics, and dialysis/DUF s/p repeat right thoracentesis on 01/05/23 s/p right heart catheterization (on 01/06/23) with results noted continue to push fluid removal as tolerated with dialysis + DUF however, he is already 30L negative since admission!! Pulmonary following (5) Hypertension: Qualifiers: Hypertension type: primary hypertension Qualified Code(s): I10 - Essential (primary) hypertension Code(s): I10 - Essential (primary) hypertension Status: Chronic Assessment and Plan: reasonable control follow trend of hemodynamics (6) Anemia: Qualifiers: Anemia type: unspecified type Qualified Code(s): D64.9 - Anemia, unspecified Code(s): D64.9 - Anemia, unspecified Status: Chronic Assessment and Plan: partly due to CKD but worsened by acute illness on Epogen with dialysis PRBC transfusion per protocol follow trend of H/H (7) Diabetes mellitus with chronic kidney disease: Code(s): E11.22 - Type 2 diabetes mellitus with diabetic chronic kidney disease Status: Chronic Assessment and Plan: follow accuchecks glycemic control per hospitalists Will continue to follow. Subjective Date/time seen: 01/11/23 14:16 Interval history: Follow-up for acute kidney injury on chronic kidney disease in need of renal replacement therapy/hemodialysis, Tolerated dialysis treatment yesterday without any issue or problems; overnight/earlier this morning, HD catheter was removed (presumably by patient) due to his confusion as he stated that he was being attacked by a bear -- moderate blood loss and
--- NOTE | 2023-01-11 14:33 | PCRCNOTE ---
Pt refused to finish 1400 neb tx, pt threw neb tx across the room. RN informed.
[2023-01-11 16:30] LABS: Glucose Point of Care 169 mg/dl (65-105)
--- NOTE | 2023-01-11 16:36 | WPDPN ---
Progress Note: A&P Assessment and Plan (1) CHF (congestive heart failure): Qualifiers: Heart failure chronicity: acute Heart failure type: diastolic Qualified Code(s): I50.31 - Acute diastolic (congestive) heart failure Code(s): I50.9 - Heart failure, unspecified Status: Acute Assessment and Plan: Continue volume removal with dialysis. Appreciate renal input 01/11/2023 interval history:Patient with end-stage renal disease on hemodialysis presented with shortness of breath has been receiving hemodialysis with ultrafiltration which he is tolerating however patient became confused and agitated and removed his dialysis catheter last night bleeding was controlled with the pressor, patient is still somewhat confused unable to provide detailed review of symptom, will be seen [facility] [employer] and further recommendation to follow. (2) Respiratory failure with hypoxia: Code(s): J96.91 - Respiratory failure, unspecified with hypoxia Status: Acute Assessment and Plan: Secondary to volume overload. Continue hemodialysis. (3) Acute renal failure superimposed on chronic kidney disease: Code(s): N17.9 - Acute kidney failure, unspecified; N18.9 - Chronic kidney disease, unspecified Status: Acute Assessment and Plan: Hemodialysis. (4) HTN (hypertension): Code(s): I10 - Essential (primary) hypertension Status: Acute Assessment and Plan: Stable (5) Anemia, chronic disease: Code(s): D63.8 - Anemia in other chronic diseases classified elsewhere Status: Acute Assessment and Plan: Monitor hemoglobin (6) Diabetes: Code(s): E11.9 - Type 2 diabetes mellitus without complications Status: Acute Assessment and Plan: Blood sugars reviewed and adequately controlled (7) Paroxysmal atrial fibrillation: Code(s): I48.0 - Paroxysmal atrial fibrillation Status: Chronic Assessment and Plan: On apixaban. On metoprolol, Amiodarone . rates controlled appreciate cardiology input. Subjective Date/time seen: 01/11/23 16:36 Interval history: 01/11/2023 interval history:Patient with end-stage renal disease on hemodialysis presented with shortness of breath has been receiving hemodialysis with ultrafiltration which he is tolerating however patient became confused and agitated and removed his dialysis catheter last night bleeding was controlled with the pressor, patient is still somewhat confused unable to provide detailed review of symptom, will be seen [facility] [employer] and further recommendation to follow. Review of Systems Review of Systems: ROS unobtainable: Yes unobtainable due to mental status Exam Narrative: Patient is comfortable, NAD HEENT: eyes are clear and none icteric LUNGS: Normal respiratory effort ABD: Distended Lower extremities: no edema SKIN: nonjaundiced Neuro: grossly intact confused. Objective Data Vital Signs Vital Signs: Vital Signs - 24 hr 01/10/23 18:20 01/10/23 19:41 01/10/23 19:41 Temperature Pulse Rate 88 82 Respiratory Rate 18 Blood Pressure Pulse Oximetry 94 Oxygen Delivery Nasal Cannula Oxygen Flow Rate 2 01/10/23 19:52 01/10/23 20:00 01/10/23 21:17 Temperature 98.6 F Pulse Rate 81 81 88 Respiratory Rate 18 14 Blood Pressure 113/65 Pulse Oximetry 91 Oxygen Delivery Oxygen Flow Rate 01/11/23 00:00 01/11/23 01:28 01/11/23 01:33 Temperature 98.1 F Pulse Rate 100 100 99 Respiratory Rate 14 18 18 Blood Pressure 91/57 L Pulse Oximetry 97 Oxygen Delivery Oxygen Flow Rate 01/10/23 20:00 01/10/23 20:00 01/11/23 00:00 Temperature Pulse Rate 80 100 Respiratory Rate Blood Pressure Pulse Oximetry 97 Oxygen Delivery Nasal Cannula Oxygen Flow Rate 2 01/11/23 04:00 01/11/23 05:03 01/11/23 05:07 Temperature Pulse Rate 72 70 73 Respiratory Rate Blood Pressure 87/57 L
[2023-01-11] MEDS: FERROUS SULFATE 324 MG TABLET PO (17:19)
[2023-01-11 20:30] LABS: Albumin Level 3.2 g/dL (3.5-5.1); Anion Gap 7 mmol/L (8-16); Blood Urea Nitrogen 39 mg/dL (9-20); Calcium 7.6 mg/dL (8.4-10.2); Carbon Dioxide 28 mmol/L (22-30); Chloride 102 mmol/L (98-107); Estimated CRCL calculation 17 ml/min; Estimated Glomerular Filt Rate 13; Glucose 183 mg/dL (65-110); Magnesium 2.2 mg/dL (1.6-2.3); Phosphorus 4.3 mg/dL (2.5-4.5); Potassium 3.8 mmol/L (3.4-5.0); Sodium 137 mmol/L (137-145)
[2023-01-11 20:35] LABS: Glucose Point of Care 187 mg/dl (65-105)
[2023-01-11] MEDS: AMITRIPTYLINE HCL 25 MG TABLET 50 MG PO (22:09)
[2023-01-11] MEDS: traZODone HCL 50 MG TABLET 100 MG PO (22:09)
[2023-01-11] MEDS: QUEtiapine FUMARATE 12.5 MG TABLET PO (22:09)
[2023-01-11] MEDS: FLUTICASONE PROPIONATE 0.05% NA SPR 16 GM BTL (*BKC) 1 SPRAY NASAL (22:10)
[2023-01-11] MEDS: ATORVASTATIN 40 MG TABLET PO (22:10)
[2023-01-11] MEDS: INSULIN GLARGINE (*BKC) 100 UNITS/ML 10 UNITS SUB-Q (22:20)
[2023-01-12] VITALS (25 sets, daily range): BP systolic 98–126; BP diastolic 56–74; PULSE 61–86; RESP 14–24; TEMP 36.2–36.4; O2SAT 95–100
[2023-01-12] MEDS: IPRATROPIUM BR 0.02% INH SOLN 0.5 MG/2.5 ML VIAL INHALATION ×4 (01:30→20:20)
[2023-01-12] MEDS: LEVALBUTEROL NEB 1.25 MG/3 ML INHALATION ×4 (01:30→20:18)
[2023-01-12 06:47] LABS: Hematocrit 28.2 % (42.0-52.0); Hemoglobin 8.2 g/dL (14.0-18.0); Mean Corpuscular HGB Conc 29.1 g/dl (32-36); Mean Corpuscular Hemoglobin 24.4 pg (26-34); Mean Corpuscular Volume 83.9 fl (80-100); Platelet Count Result 217 k/mm3 (150-375); Red Blood Count 3.36 M/mm3 (4.6-6.20); White Blood Count 6.1 K/mm3 (4.5-10.0)
[2023-01-12] MEDS: GABAPENTIN 100 MG CAPSULE PO ×3 (06:50→20:40)
[2023-01-12] MEDS: hydrALAZINE HCL 50 MG TABLET 100 MG PO (06:50)
[2023-01-12] MEDS: LEVOTHYROXINE SODIUM 100 MCG TABLET PO (07:00)
[2023-01-12 07:07] LABS: Albumin Level 3.1 g/dL (3.5-5.1); Anion Gap 9 mmol/L (8-16); Blood Urea Nitrogen 44 mg/dL (9-20); Calcium 7.9 mg/dL (8.4-10.2); Carbon Dioxide 27 mmol/L (22-30); Chloride 101 mmol/L (98-107); Estimated CRCL calculation 16 ml/min; Estimated Glomerular Filt Rate 12; Glucose 129 mg/dL (65-110); Magnesium 2.1 mg/dL (1.6-2.3); Phosphorus 4.8 mg/dL (2.5-4.5); Potassium 3.8 mmol/L (3.4-5.0); Sodium 137 mmol/L (137-145)
[2023-01-12 07:59] LABS: Glucose Point of Care 124 mg/dl (65-105)
[2023-01-12] MEDS: FLUTICASONE PROPIONATE 0.05% NA SPR 16 GM BTL (*BKC) 1 SPRAY NASAL ×2 (08:18→20:41)
[2023-01-12] MEDS: BUMETANIDE INJ 2.5 MG/10 ML VIAL 2 MG IV PUSH ×2 (08:19→16:43)
[2023-01-12] MEDS: PYRIDOXINE HCL 50 MG TABLET PO (08:19)
[2023-01-12] MEDS: busPIRone HCL 5 MG TABLET PO ×3 (08:19→16:43)
[2023-01-12] MEDS: busPIRone HCL 10 MG TABLET PO ×3 (08:19→16:44)
[2023-01-12] MEDS: PANTOPRAZOLE SODIUM IV 40 MG VIAL IV PUSH ×2 (08:20→20:41)
[2023-01-12] MEDS: polyethylene glycoL 3350 17 GM POWD.PACK PO (08:21)
[2023-01-12] MEDS: ASCORBIC ACID 500 MG TABLET PO (08:21)
[2023-01-12] MEDS: ASPIRIN 81 MG ENTERIC TABLET PO (08:21)
[2023-01-12] MEDS: APIXABAN 5 MG TABLET PO (08:21)
[2023-01-12] MEDS: ISOSORBIDE MONONITRATE 30 MG TAB.ER.24H PO (08:21)
[2023-01-12] MEDS: metOLazone 5 MG TABLET 10 MG PO ×2 (08:22→16:43)
[2023-01-12] MEDS: AMIODARONE HCL 200 MG TABLET 400 MG PO ×2 (08:22→16:42)
[2023-01-12] MEDS: FAMOTIDINE 20 MG TABLET PO ×2 (08:23→20:40)
[2023-01-12] MEDS: UMECLIDINIUM/VILANTEROL 62.5-25 MCG ELLIPTA 1 PUFF INHALATION (09:27)
[2023-01-12 11:45] LABS: Glucose Point of Care 260 mg/dl (65-105)
[2023-01-12] MEDS: INSULIN ASPART (*BKC) 100 UNITS/ML SUB-Q (12:03)
[2023-01-12] MEDS: FERROUS SULFATE 324 MG TABLET PO ×2 (12:06→16:42)
[2023-01-12] MEDS: METOPROLOL TARTRATE 50 MG TAB 100 MG PO ×2 (12:06→20:41)
--- NOTE | 2023-01-12 12:14 | PCNWS ---
Weekly nutritional screen. Patient is tolerating current Renal diet with adequate intake 75-100%. No weight loss reported. No nutritional needs at this time.
--- NOTE | 2023-01-12 13:03 | P.PNNP_ITS ---
Progress Note: A&P Assessment and Plan (1) JOSE M (acute kidney injury): Code(s): N17.9 - Acute kidney failure, unspecified Status: Acute Assessment and Plan: * due to ongoing attempts at diuresis with high dose diuretics * however, evidence of diuretic resistance noted * evaluation noted: * renal ultrasound normal * urine electrolytes look prerenal (inspite of clear evidence of volume overload) * urine eosinophils negative * serological testing negative to date (JEZ, ANCA, complements, SPEP, UPEP....etc * still making some urine * resume hemodialysis treatment when able * will need another HD catheter placement - Surgery consulted * given necessity of dialysis for ongoing optimization of his fluid status, the patient will likely need outpatient dialysis on discharge * follow repeat labs and UOP for potential recovery (2) Chronic kidney disease, stage IV (severe): Code(s): N18.4 - Chronic kidney disease, stage 4 (severe) Status: Chronic Assessment and Plan: * creatinine has been fluctuating ~ 2.0 - 2.5mg/dl since earlier this year * suspected etiology of CKD due to hypertension, diabetes, and vascular disease * however, his CHF and need for diuresis as well as suspected TIERRA likely playing a role (3) CHF (congestive heart failure): Qualifiers: Heart failure chronicity: acute Heart failure type: diastolic Qu alified Code(s): I50.31 - Acute diastolic (congestive) heart failure Code(s): I50.9 - Heart failure, unspecified Status: Acute Assessment and Plan: * acute exacerbation * appears to be right sided heart failure + diastolic dysfunction * Echo results noted -- normal LVSF, EF 50-55%, mild TR, no other significant valve pathology * presented with dyspnea on exertion, abdominal distention and scrotal edema * still making some urine (on diuretics) but not very much * follow volume status * continue fluid removal with HD (and DUF as needed) * Cardiology following (4) Respiratory failure with hypoxia: Code(s): J96.91 - Respiratory failure, unspecified with hypoxia Status: Acute Assessment and Plan: * multifactorial: * possible COPD * suspected TIERRA/OHS * fluid/volume overload * CHF * anemia * Pulmonary following with recommendations noted * follow respiratory status * continue breathing treatments, diuretics, and dialysis/DUF * s/p repeat right thoracentesis on 5/18/23 * s/p right heart catheterization (on 01/06/23) with results noted * continue to push fluid removal as tolerated with dialysis + DUF * however, he is already 30L negative since admission!! * Pulmonary following (5) Hypertension: Qualifiers: Hypertension type: primary hypertension Qualified Code(s): I10 - Es sential (primary) hypertension Code(s): I10 - Essential (primary) hypertension Status: Chronic Assessment and Plan: * reasonable control * follow trend of hemodynamics (6) Anemia: Qualifiers: Anemia type: unspecified type Qualified Code(s): D64.9 - Anemia, unspecified Code(s): D64.9 - Anemia, unspecified Status: Chronic Assessment and Plan: * partly due to CKD but worsened by acute illness * on Epogen with dialysis * PRBC transfusion per protocol * follow trend of H/H (7) Diabetes mellitus with chronic kidney disease: Code(s): E11.22 - Type 2 diabetes mellitus with diabetic chronic kidney disease Status: Chronic Assessment and Plan: * fo
--- NOTE | 2023-01-12 13:03 | PM.PNNEP ---
Progress Note: A&P Assessment and Plan (1) JOSE M (acute kidney injury): Code(s): N17.9 - Acute kidney failure, unspecified Status: Acute Assessment and Plan: due to ongoing attempts at diuresis with high dose diuretics however, evidence of diuretic resistance noted evaluation noted: renal ultrasound normal urine electrolytes look prerenal (inspite of clear evidence of volume overload) urine eosinophils negative serological testing negative to date (JEZ, ANCA, complements, SPEP, UPEP....etc still making some urine resume hemodialysis treatment when able will need another HD catheter placement - Surgery consulted given necessity of dialysis for ongoing optimization of his fluid status, the patient will likely need outpatient dialysis on discharge follow repeat labs and UOP for potential recovery (2) Chronic kidney disease, stage IV (severe): Code(s): N18.4 - Chronic kidney disease, stage 4 (severe) Status: Chronic Assessment and Plan: creatinine has been fluctuating ~ 2.0 - 2.5mg/dl since earlier this year suspected etiology of CKD due to hypertension, diabetes, and vascular disease however, his CHF and need for diuresis as well as suspected TIERRA likely playing a role (3) CHF (congestive heart failure): Qualifiers: Heart failure chronicity: acute Heart failure type: diastolic Qualified Code(s): I50.31 - Acute diastolic (congestive) heart failure Code(s): I50.9 - Heart failure, unspecified Status: Acute Assessment and Plan: acute exacerbation appears to be right sided heart failure + diastolic dysfunction Echo results noted -- normal LVSF, EF 50-55%, mild TR, no other significant valve pathology presented with dyspnea on exertion, abdominal distention and scrotal edema still making some urine (on diuretics) but not very much follow volume status continue fluid removal with HD (and DUF as needed) Cardiology following (4) Respiratory failure with hypoxia: Code(s): J96.91 - Respiratory failure, unspecified with hypoxia Status: Acute Assessment and Plan: multifactorial: possible COPD suspected TIERRA/OHS fluid/volume overload CHF anemia Pulmonary following with recommendations noted follow respiratory status continue breathing treatments, diuretics, and dialysis/DUF s/p repeat right thoracentesis on 01/05/23 s/p right heart catheterization (on 01/06/23) with results noted continue to push fluid removal as tolerated with dialysis + DUF however, he is already 30L negative since admission!! Pulmonary following (5) Hypertension: Qualifiers: Hypertension type: primary hypertension Qualified Code(s): I10 - Essential (primary) hypertension Code(s): I10 - Essential (primary) hypertension Status: Chronic Assessment and Plan: reasonable control follow trend of hemodynamics (6) Anemia: Qualifiers: Anemia type: unspecified type Qualified Code(s): D64.9 - Anemia, unspecified Code(s): D64.9 - Anemia, unspecified Status: Chronic Assessment and Plan: partly due to CKD but worsened by acute illness on Epogen with dialysis PRBC transfusion per protocol follow trend of H/H (7) Diabetes mellitus with chronic kidney disease: Code(s): E11.22 - Type 2 diabetes mellitus with diabetic chronic kidney disease Status: Chronic Assessment and Plan: follow accuchecks glycemic control per hospitalists Will continue to follow. Subjective Date/time seen: 01/12/23 13:03 Interval history: Follow-up for acute kidney injury on chronic kidney disease in need of renal replacement therapy/hemodialysis, Respiratory status seems about the same; still remains confused as well; unable to receive dialysis today since patient accidently pulled out his HD catheter yesterday morning; no other apparent issues/events overnight or at
--- NOTE | 2023-01-12 14:50 | PM.PNPUL ---
Progress Note: A&P Assessment and Plan (1) CHF (congestive heart failure): Qualifiers: Heart failure chronicity: acute Heart failure type: diastolic Qualified Code(s): I50.31 - Acute diastolic (congestive) heart failure Code(s): I50.9 - Heart failure, unspecified Status: Acute (2) Diabetes: Code(s): E11.9 - Type 2 diabetes mellitus without complications Status: Acute (3) Diabetes mellitus with chronic kidney disease: Code(s): E11.22 - Type 2 diabetes mellitus with diabetic chronic kidney disease Status: Chronic (4) Respiratory failure with hypoxia: Code(s): J96.91 - Respiratory failure, unspecified with hypoxia Status: Acute Assessment and Plan: Patient's respiratory status has been stable since repeat thoracentesis last week. Last chest x-ray showed residual pleural effusion on right and no evidence of pulmonary edema. MRSA screening positive. Plan: Continue with supportive care, monitor respiratory status, out of bed to chair. Add mupirocin treatment to nostrils for 5 days. Repeat chest x-ray in a.m. to assess for possible pleural fluid reaccumulation. Have lowered BiPAP pressures as patient may tolerate them. (5) Pleural effusion: Code(s): J90 - Pleural effusion, not elsewhere classified Status: Acute (6) Paroxysmal atrial fibrillation: Code(s): I48.0 - Paroxysmal atrial fibrillation Status: Chronic Subjective Date/time seen: 01/12/23 14:50 Interval history: No new respiratory symptoms. Did not use BiPAP support last night stated that he cannot tolerate the high pressures. Review of Systems Review of Systems: All systems reviewed & are unremarkable except as noted in HPI and below (HPI and below) Exam Narrative: GENERAL APPEARANCE: Well developed, well nourished, alert and cooperative, and appears to be in mild respiratory distress while on supplemental oxygen via nasal cannula at 2 liters/minute. HEENT: Sclerae anicteric and conjunctivae pink and moist. Extraocular movements were intact and pupils were equal. Dry oral mucosa NECK: Supple. There was no thyroid enlargement, and no tenderness, or masses were felt. CHEST: Normal AP diameter and normal contour without any kyphoscoliosis. LUNGS: Dullness to percussion at the right base posteriorly, rare rhonchi bilaterally no wheezing CARDIAC: There was a irregular rate and rhythm without any murmurs. ABDOMEN: Soft and nontender with normal bowel sounds. There was no organomegaly. LYMPH NODES: No lymphadenopathy was appreciated in the neck. 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 Normal affect. Objective Data Vital Signs Vital Signs: Vital Signs - 24 hr 01/11/23 16:00 01/11/23 17:21 01/11/23 16:00 Temperature 36.6 C Pulse Rate 76 96 84 Respiratory Rate 16 Blood Pressure 112/68 Pulse Oximetry 98 Oxygen Delivery Oxygen Flow Rate 01/11/23 20:30 01/11/23 20:30 01/11/23 20:46 Temperature Pulse Rate 74 74 77 Respiratory Rate 20 20 Blood Pressure Pulse Oximetry 98 Oxygen Delivery Nasal Cannula Oxygen Flow Rate 2 01/11/23 20:00 01/11/23 22:03 01/11/23 22:20 Temperature 36.6 C Pulse Rate 72 72 Respiratory Rate 14 26 H Blood Pressure 94/56 L 104/56 L Pulse Oximetry 90 99 Oxygen Delivery BiPAP Oxygen Flow Rate 01/11/23 20:00 01/12/23 01:20 01/12/23 01:32 Temperature Pulse Rate 61 72 Respiratory Rate 18 18 Blood Pressure Pulse Oximetry 99 Oxygen Delivery Nasal Cannula Oxygen Flow Rate 2 01/12/23 01:47 01/11/23 20:00 01/12/23 00:00 Temperature 36.3 C L Pulse Rate 73 77 74 Respiratory Rate 14 Blood Pressure 98/56 L Pulse Oximetry 100 Oxygen Delivery Oxygen Flow Rate 01/12/23 04:00 01/12/23 06:00 01/12/23 08:22 Temperature 36.4 C Pulse Rate 72 71 76 Respiratory Rate 14 Blood Pressure 113/63 Pulse Oximetry
--- NOTE | 2023-01-12 15:42 | WPDPN ---
Progress Note: A&P Assessment and Plan (1) CHF (congestive heart failure): Qualifiers: Heart failure chronicity: acute Heart failure type: diastolic Qualified Code(s): I50.31 - Acute diastolic (congestive) heart failure Code(s): I50.9 - Heart failure, unspecified Status: Acute Assessment and Plan: Continue volume removal with dialysis. Appreciate renal input 01/12/2023 interval history:Patient with end-stage renal disease on hemodialysis presented with shortness of breath has been receiving hemodialysis with ultrafiltration which he is tolerating however on 01/11 patient became confused and agitated and removed his dialysis catheter there was bleeding, which was controlled with the pressor, today patient is still somewhat confused unable to provide detailed review of symptom, spoke with the patient's far regarding possible withdrawing the care and comfort care, family did come and visit the patient has decided to continue to dialysis, will consult surgery service for dialysis catheter, will be seen ladle repairman and further recommendation to follow. (2) Respiratory failure with hypoxia: Code(s): J96.91 - Respiratory failure, unspecified with hypoxia Status: Acute Assessment and Plan: Secondary to volume overload. Continue hemodialysis. (3) Acute renal failure superimposed on chronic kidney disease: Code(s): N17.9 - Acute kidney failure, unspecified; N18.9 - Chronic kidney disease, unspecified Status: Acute Assessment and Plan: Hemodialysis. (4) HTN (hypertension): Code(s): I10 - Essential (primary) hypertension Status: Acute Assessment and Plan: Stable (5) Anemia, chronic disease: Code(s): D63.8 - Anemia in other chronic diseases classified elsewhere Status: Acute Assessment and Plan: Monitor hemoglobin (6) Diabetes: Code(s): E11.9 - Type 2 diabetes mellitus without complications Status: Acute Assessment and Plan: Blood sugars reviewed and adequately controlled (7) Paroxysmal atrial fibrillation: Code(s): I48.0 - Paroxysmal atrial fibrillation Status: Chronic Assessment and Plan: On apixaban. On metoprolol, Amiodarone . rates controlled appreciate cardiology input. Subjective Date/time seen: 01/12/23 15:42 Interval history: 01/12/2023 interval history:Patient with end-stage renal disease on hemodialysis presented with shortness of breath has been receiving hemodialysis with ultrafiltration which he is tolerating however on 01/11 patient became confused and agitated and removed his dialysis catheter there was bleeding, which was controlled with the pressor, today patient is still somewhat confused unable to provide detailed review of symptom, spoke with the patient's far regarding possible withdrawing the care and comfort care, family did come and visit the patient has decided to continue to dialysis, will consult surgery service for dialysis catheter, will be seen ladle repairman and further recommendation to follow. Review of Systems Review of Systems: SOB at rest ROS unobtainable: Yes unobtainable due to mental status Exam Narrative: Patient is comfortable, NAD HEENT: eyes are clear and none icteric LUNGS: Normal respiratory effort ABD: Distended Lower extremities: no edema SKIN: nonjaundiced Neuro: grossly intact confused. Objective Data Vital Signs Vital Signs: Vital Signs - 24 hr 01/11/23 16:00 01/11/23 17:21 01/11/23 16:00 Temperature 97.9 F Pulse Rate 76 96 84 Respiratory Rate 16 Blood Pressure 112/68 Pulse Oximetry 98 Oxygen Delivery Oxygen Flow Rate 01/11/23 20:30 01/11/23 20:30 01/11/23 20:46 Temperature Pulse Rate 74 74 77 Respiratory Rate 20 20 Blood Pressure Pulse Oximetry 98 Oxygen Delivery Nasal Cannula Oxygen Flow Rate 2 01/11/23 20:00 01/11/23 22:03 01/11/23 22:20
[2023-01-12] MEDS: HYDROcodone/acetaminophen (*CRX) 5-325 MG TABLET 1 TAB PO ×2 (16:39→22:59)
[2023-01-12 16:46] LABS: Glucose Point of Care 185 mg/dl (65-105)
[2023-01-12 19:58] LABS: Glucose Pleural Fluid 90 mg/dL; Total Protein Pleural Fluid 3.3 g/dL
[2023-01-12 20:37] LABS: Glucose Point of Care 189 mg/dl (65-105)
[2023-01-12] MEDS: QUEtiapine FUMARATE 12.5 MG TABLET PO (20:39)
[2023-01-12] MEDS: traZODone HCL 50 MG TABLET 100 MG PO (20:39)
[2023-01-12] MEDS: AMITRIPTYLINE HCL 25 MG TABLET 50 MG PO (20:41)
[2023-01-12] MEDS: ATORVASTATIN 40 MG TABLET PO (20:41)
[2023-01-12] MEDS: TOLNAFTATE 1% POWDER 45 GM BTL 1 APPLIC TOPICAL (20:42)
[2023-01-12] MEDS: INSULIN GLARGINE (*BKC) 100 UNITS/ML 10 UNITS SUB-Q (20:53)
[2023-01-12] MEDS: MUPIROCIN 2% OINT 22 GM TUBE 1 APPLIC EACH NARE (22:59)
[2023-01-13] VITALS (37 sets, daily range): BP systolic 101–126; BP diastolic 55–86; PULSE 63–85; RESP 14–26; TEMP 0–36.6; O2SAT 95–100
[2023-01-13] MEDS: LIDOCAINE HCL 2% GEL UROJET 10 ML PKG MUCOUS MEM (01:03)
[2023-01-13 01:38] LABS: Appearance Urine Cloudy (Clear); Bacteria Urine 4+ /hpf; Bilirubin Urine Negative (Negative); Blood Urine 1+ (Negative); Color Urine Yellow (Yellow); Glucose Urine UA Negative (Negative); Hyaline Casts Urine Present /lpf; Ketones Urine Negative (Negative); Leukocyte Esterase Ur 3+ LEU/UL (Negative); Mucus Urine Present /lpf; Nitrate Urine Negative (Negative); Protein Urine 1+ mg/dL (Negative); Specific Grav Ur 1.011 (1.001-1.035); Squamous Epithelial Cell Urine None seen /hpf (Few); Urobilinogen Urine 0.2 mg/dL (<2.0); WBC Urine >100 /hpf
[2023-01-13 01:39] LABS: Add Urine Microscopic? YES
[2023-01-13] MEDS: IPRATROPIUM BR 0.02% INH SOLN 0.5 MG/2.5 ML VIAL INHALATION ×4 (02:34→19:32)
[2023-01-13] MEDS: LEVALBUTEROL NEB 1.25 MG/3 ML INHALATION ×4 (02:34→19:32)
[2023-01-13] MEDS: GABAPENTIN 100 MG CAPSULE PO ×3 (06:05→21:12)
[2023-01-13] MEDS: LEVOTHYROXINE SODIUM 100 MCG TABLET PO (06:05)
[2023-01-13] MEDS: HYDROcodone/acetaminophen (*CRX) 5-325 MG TABLET 1 TAB PO ×2 (06:07→18:00)
[2023-01-13 06:26] LABS: Hematocrit 27.3 % (42.0-52.0); Hemoglobin 7.9 g/dL (14.0-18.0); Mean Corpuscular HGB Conc 28.9 g/dl (32-36); Mean Corpuscular Hemoglobin 24.3 pg (26-34); Mean Platelet Volume 10.2 fl (7.4-10.4); Platelet Count Result 222 k/mm3 (150-375); Red Blood Count 3.25 M/mm3 (4.6-6.20); Red Cell Distribution Width 18.2 % (11.5-14.5); White Blood Count 6.5 K/mm3 (4.5-10.0)
[2023-01-13 06:37] LABS: Albumin Level 3.3 g/dL (3.5-5.1); Anion Gap 10 mmol/L (8-16); Blood Urea Nitrogen 52 mg/dL (9-20); Calcium 8.2 mg/dL (8.4-10.2); Carbon Dioxide 26 mmol/L (22-30); Chloride 100 mmol/L (98-107); Estimated CRCL calculation 14 ml/min; Estimated Glomerular Filt Rate 11; Glucose 136 mg/dL (65-110); Magnesium 2.3 mg/dL (1.6-2.3); Phosphorus 6.1 mg/dL (2.5-4.5); Sodium 136 mmol/L (137-145)
[2023-01-13 07:58] LABS: Glucose Point of Care 157 mg/dl (65-105)
[2023-01-13] MEDS: UMECLIDINIUM/VILANTEROL 62.5-25 MCG ELLIPTA 1 PUFF INHALATION (08:00)
[2023-01-13] MEDS: BUMETANIDE INJ 2.5 MG/10 ML VIAL 2 MG IV PUSH ×2 (08:25→18:09)
[2023-01-13] MEDS: FLUTICASONE PROPIONATE 0.05% NA SPR 16 GM BTL (*BKC) 1 SPRAY NASAL ×2 (08:25→20:06)
[2023-01-13] MEDS: PANTOPRAZOLE SODIUM IV 40 MG VIAL IV PUSH ×2 (08:25→20:05)
[2023-01-13] MEDS: MUPIROCIN 2% OINT 22 GM TUBE 1 APPLIC EACH NARE ×2 (08:25→20:05)
[2023-01-13] MEDS: ASCORBIC ACID 500 MG TABLET PO (08:26)
[2023-01-13] MEDS: FAMOTIDINE 20 MG TABLET PO ×2 (08:26→20:04)
[2023-01-13] MEDS: PYRIDOXINE HCL 50 MG TABLET PO (08:26)
[2023-01-13] MEDS: busPIRone HCL 5 MG TABLET PO ×2 (08:26→17:53)
[2023-01-13] MEDS: metOLazone 5 MG TABLET 10 MG PO ×2 (08:26→17:47)
[2023-01-13] MEDS: ISOSORBIDE MONONITRATE 30 MG TAB.ER.24H PO (08:26)
[2023-01-13] MEDS: busPIRone HCL 10 MG TABLET PO ×2 (08:27→17:53)
[2023-01-13] MEDS: AMIODARONE HCL 200 MG TABLET 400 MG PO ×2 (08:27→17:48)
--- NOTE | 2023-01-13 09:36 | PM.PNPUL ---
Progress Note: A&P Assessment and Plan (1) CHF (congestive heart failure): Qualifiers: Heart failure chronicity: acute Heart failure type: diastolic Qualified Code(s): I50.31 - Acute diastolic (congestive) heart failure Code(s): I50.9 - Heart failure, unspecified Status: Acute (2) Diabetes: Code(s): E11.9 - Type 2 diabetes mellitus without complications Status: Acute (3) Diabetes mellitus with chronic kidney disease: Code(s): E11.22 - Type 2 diabetes mellitus with diabetic chronic kidney disease Status: Chronic (4) Respiratory failure with hypoxia: Code(s): J96.91 - Respiratory failure, unspecified with hypoxia Status: Acute Assessment and Plan: Chest x-ray done this a.m. showed reaccumulation of right pleural effusion. Overall respiratory status has not significantly worsened over the last couple of days. Reaccumulation of pleural effusion despite aggressive diuresis and fluid removal through dialysis probably indicates that the diastolic dysfunction is severe and that pleural effusion will become chronic. Patient seems to tolerate BiPAP support with lower pressures. Plan: Continue with supportive care, monitor respiratory status, out of bed to chair. Will repeat ApneaLink on BiPAP and supplemental oxygen. (5) Pleural effusion: Code(s): J90 - Pleural effusion, not elsewhere classified Status: Acute (6) Paroxysmal atrial fibrillation: Code(s): I48.0 - Paroxysmal atrial fibrillation Status: Chronic Subjective Date/time seen: 01/13/23 09:36 Interval history: Patient used BiPAP with lower pressures last night for several hours. He has some dry cough this a.m. but no other new respiratory symptoms. Afebrile, remaining on supplemental oxygen. Shortness of breath about the same. Review of Systems Review of Systems: All systems reviewed & are unremarkable except as noted in HPI and below (HPI and below) Exam Narrative: GENERAL APPEARANCE: Well developed, well nourished, alert and cooperative, and appears to be in mild respiratory distress while on supplemental oxygen via nasal cannula at 2 liters/minute. HEENT: Sclerae anicteric and conjunctivae pink and moist. Extraocular movements were intact and pupils were equal. Dry oral mucosa NECK: Supple. There was no thyroid enlargement, and no tenderness, or masses were felt. CHEST: Normal AP diameter and normal contour without any kyphoscoliosis. LUNGS: Dullness to percussion at the right base posteriorly, rare rhonchi bilaterally no wheezing CARDIAC: There was a irregular rate and rhythm without any murmurs. ABDOMEN: Soft and nontender with normal bowel sounds. There was no organomegaly. LYMPH NODES: No lymphadenopathy was appreciated in the neck. 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 Normal affect. Objective Data Vital Signs Vital Signs: Vital Signs - 24 hr 01/12/23 09:38 01/12/23 12:06 01/12/23 12:00 Temperature 36.3 C L Pulse Rate 71 70 70 Respiratory Rate 18 22 H Blood Pressure 109/60 Pulse Oximetry 95 Oxygen Delivery Oxygen Flow Rate 01/12/23 14:05 01/12/23 14:17 01/12/23 16:33 Temperature 36.4 C L Pulse Rate 72 68 70 Respiratory Rate 18 18 24 H Blood Pressure 112/74 Pulse Oximetry 100 Oxygen Delivery Oxygen Flow Rate 01/12/23 16:42 01/12/23 12:00 01/12/23 16:00 Temperature Pulse Rate 70 70 70 Respiratory Rate Blood Pressure Pulse Oximetry Oxygen Delivery Oxygen Flow Rate 01/12/23 20:20 01/12/23 20:22 01/12/23 20:00 Temperature 36.2 C L Pulse Rate 86 81 Respiratory Rate 18 14 Blood Pressure 126/73 Pulse Oximetry 97 100 Oxygen Delivery Nasal Cannula Oxygen Flow Rate 2 01/13/23 00:00 01/12/23 20:00 01/13/23 02:33 Temperature 36.1 C L Pulse Rate 63 70 Respiratory Rate 14 20 Blood Pressure 101/58 L Pulse Oximetry 100 97
[2023-01-13] MEDS: LORazepam INJ (*CRX) 2 MG/ML VIAL 1 MG IV PUSH (11:19)
[2023-01-13] MEDS: MORPHINE SULFATE (*CRX) 2 MG/ML INJ 1 MG IV PUSH (11:20)
[2023-01-13 11:33] LABS: Glucose Point of Care 141 mg/dl (65-105)
--- NOTE | 2023-01-13 11:41 | P.OP_ITS ---
Procedure Note - Detailed Date of Procedure 01/13/23 Pre-op Diagnosis Acute renal failure Post-op Diagnosis Same Procedure Performed Placement of 16 cm 12 [place] Trialysis catheter under ultrasonic guidance Surgeon Kacey Griffin MD Anesthesia Local Indications 57-year-old male presenting with acute renal failure. Patient had previously placed right internal jugular tunnel dialysis catheter which he dislodged a few days ago and during some confusion. Findings 1st stick right IJ using SonoSite Description of Procedure The patient was in his bed on the floor and placed in the supine position. He was then prepped and draped in normal sterile fashion. A time-out was then done to verify the patient's identity, as well as the procedure being performed. Began by identifying the right internal jugular vein using the ultrasound. I then localized the area over the right internal jugular vein. I then used an 18 gauge needle to gain access into the right internal jugular vein, as confirmed via ultrasound. I then fed the guidewire into the right internal jugular vein. I then removed the 18 gauge needle and serially dilated the vein over the guidewire. I then placed a 12 [place]ian 16 cm Trialysis catheter using sterile Seldinger technique over the guidewire into the right internal jugular vein. Once positioned, the guidewire was removed now leaving just the catheter in the vein. I was able to easily drawn flush from all ports. The catheter was then sutured into position. Sterile dressing was placed. The patient tolerated the procedure well. Implants 16 cm 12 [place] Trialysis catheter Estimated Blood Loss 10 Condition Stable Disposition Floor AM Billing Surgery - Charge Forward: Surgery Billing
--- NOTE | 2023-01-13 11:44 | WPDPN ---
Progress Note: A&P Assessment and Plan (1) CHF (congestive heart failure): Qualifiers: Heart failure chronicity: acute Heart failure type: diastolic Qualified Code(s): I50.31 - Acute diastolic (congestive) heart failure Code(s): I50.9 - Heart failure, unspecified Status: Acute Assessment and Plan: Continue volume removal with dialysis. Appreciate renal input 01/13/2023 interval history:Patient with end-stage renal disease on hemodialysis presented with shortness of breath has been receiving hemodialysis with ultrafiltration which he is tolerating however on 01/11 patient became confused and agitated and removed his dialysis catheter there was bleeding, which was controlled with the pressor, today patient is still somewhat confused unable to provide detailed review of symptom, on 01/12 spoke with the patient's father regarding possible withdrawing the care and comfort care, family did come and visit the patient has decided to continue to dialysis, today discussed with surgery service for dialysis catheter, will place cath today, as patient is getting volume overloaded, will give Bumex 2mg IV extra dose today to help diurese the patient, also accorfing to nusing staff, patient penis is red and swollen, will consult urologist, patient will be seen heavy duty diesel mechanic and further recommendation to follow. (2) Respiratory failure with hypoxia: Code(s): J96.91 - Respiratory failure, unspecified with hypoxia Status: Acute Assessment and Plan: Secondary to volume overload. Continue hemodialysis. (3) Acute renal failure superimposed on chronic kidney disease: Code(s): N17.9 - Acute kidney failure, unspecified; N18.9 - Chronic kidney disease, unspecified Status: Acute Assessment and Plan: Hemodialysis. (4) HTN (hypertension): Code(s): I10 - Essential (primary) hypertension Status: Acute Assessment and Plan: Stable (5) Anemia, chronic disease: Code(s): D63.8 - Anemia in other chronic diseases classified elsewhere Status: Acute Assessment and Plan: Monitor hemoglobin (6) Diabetes: Code(s): E11.9 - Type 2 diabetes mellitus without complications Status: Acute Assessment and Plan: Blood sugars reviewed and adequately controlled (7) Paroxysmal atrial fibrillation: Code(s): I48.0 - Paroxysmal atrial fibrillation Status: Chronic Assessment and Plan: On apixaban. On metoprolol, Amiodarone . rates controlled appreciate cardiology input. Subjective Date/time seen: 01/13/23 11:44 Interval history: 01/13/2023 interval history:Patient with end-stage renal disease on hemodialysis presented with shortness of breath has been receiving hemodialysis with ultrafiltration which he is tolerating however on 01/11 patient became confused and agitated and removed his dialysis catheter there was bleeding, which was controlled with the pressor, today patient is still somewhat confused unable to provide detailed review of symptom, on 01/12 spoke with the patient's father regarding possible withdrawing the care and comfort care, family did come and visit the patient has decided to continue to dialysis, today discussed with surgery service for dialysis catheter, will place cath today, as patient is getting volume overloaded, will give Bumex 2mg IV extra dose today to help diurese the patient, also accorfing to nusing staff, patient penis is red and swollen, will consult urologist, patient will be seen heavy duty diesel mechanic and further recommendation to follow. Review of Systems Review of Systems: All systems reviewed & are unremarkable except as noted in HPI and below Exam Narrative: Patient is comfortable, NAD HEENT: eyes are clear and none icteric LUNGS: Normal respiratory effort ABD: Distended Lower extremities: no edema SKIN: nonjaundiced Neuro: grossly intact confused. Objective Data Vital Sign
--- NOTE | 2023-01-13 11:46 | PCOTNOTE ---
Pt is not available at this time for Occupational Therapy treatment due to having a procedure completed in room. Will continue per POC duration/frequency tomorrow.
--- NOTE | 2023-01-13 12:46 | PCOTNOTE ---
Pt is not appropriate to be seen for Occupational Therapy treatment per nursing due to recent procedure. Will continue when appropriate per POC duration/frequency tomorrow.
[2023-01-13 13:07] LABS: Amylase, Pleural Fluid <10 U/L
--- NOTE | 2023-01-13 14:48 | PM.PNNEP ---
Progress Note: A&P Assessment and Plan (1) JOSE M (acute kidney injury): Code(s): N17.9 - Acute kidney failure, unspecified Status: Acute Assessment and Plan: due to ongoing attempts at diuresis with high dose diuretics however, evidence of diuretic resistance noted evaluation noted: renal ultrasound normal urine electrolytes look prerenal (inspite of clear evidence of volume overload) urine eosinophils negative serological testing negative to date (JEZ, ANCA, complements, SPEP, UPEP....etc still making some urine resume hemodialysis treatment s/p temporary HD catheter placement (done 01/13/23) DUF today hemodialysis tomorrow given necessity of dialysis for ongoing optimization of his fluid status, the patient will likely need outpatient dialysis on discharge follow repeat labs and UOP for potential recovery (2) Chronic kidney disease, stage IV (severe): Code(s): N18.4 - Chronic kidney disease, stage 4 (severe) Status: Chronic Assessment and Plan: creatinine has been fluctuating ~ 2.0 - 2.5mg/dl since earlier this year suspected etiology of CKD due to hypertension, diabetes, and vascular disease however, his CHF and need for diuresis as well as suspected TIERRA likely playing a role (3) CHF (congestive heart failure): Qualifiers: Heart failure chronicity: acute Heart failure type: diastolic Qualified Code(s): I50.31 - Acute diastolic (congestive) heart failure Code(s): I50.9 - Heart failure, unspecified Status: Acute Assessment and Plan: acute exacerbation appears to be right sided heart failure + diastolic dysfunction Echo results noted -- normal LVSF, EF 50-55%, mild TR, no other significant valve pathology presented with dyspnea on exertion, abdominal distention and scrotal edema still making some urine (on diuretics) but not very much follow volume status continue fluid removal with HD (and DUF as needed) Cardiology following (4) Respiratory failure with hypoxia: Code(s): J96.91 - Respiratory failure, unspecified with hypoxia Status: Acute Assessment and Plan: multifactorial: possible COPD suspected TIERRA/OHS fluid/volume overload CHF anemia Pulmonary following with recommendations noted follow respiratory status continue breathing treatments, diuretics, and dialysis/DUF s/p repeat right thoracentesis on 01/05/23 s/p right heart catheterization (on 01/06/23) with results noted continue to push fluid removal as tolerated with dialysis + DUF however, he is already 30L negative since admission!! Pulmonary following (5) Hypertension: Qualifiers: Hypertension type: primary hypertension Qualified Code(s): I10 - Essential (primary) hypertension Code(s): I10 - Essential (primary) hypertension Status: Chronic Assessment and Plan: reasonable control follow trend of hemodynamics (6) Anemia: Qualifiers: Anemia type: unspecified type Qualified Code(s): D64.9 - Anemia, unspecified Code(s): D64.9 - Anemia, unspecified Status: Chronic Assessment and Plan: partly due to CKD but worsened by acute illness on Epogen with dialysis PRBC transfusion per protocol follow trend of H/H (7) Diabetes mellitus with chronic kidney disease: Code(s): E11.22 - Type 2 diabetes mellitus with diabetic chronic kidney disease Status: Chronic Assessment and Plan: follow accuchecks glycemic control per hospitalists Will continue to follow. Subjective Date/time seen: 01/13/23 14:48 Interval history: Follow-up for acute kidney injury on chronic kidney disease in need of renal replacement therapy/hemodialysis. Breathing/respiratory status a bit worse earlier this AM in comparison to yesterday concerning for worsening fluid overload; temporary HD catheter placed at bedside and subsequently started on dry ultrafiltrat
--- NOTE | 2023-01-13 14:48 | P.PNNP_ITS ---
Progress Note: A&P Assessment and Plan (1) JOSE M (acute kidney injury): Code(s): N17.9 - Acute kidney failure, unspecified Status: Acute Assessment and Plan: * due to ongoing attempts at diuresis with high dose diuretics * however, evidence of diuretic resistance noted * evaluation noted: * renal ultrasound normal * urine electrolytes look prerenal (inspite of clear evidence of volume overload) * urine eosinophils negative * serological testing negative to date (JEZ, ANCA, complements, SPEP, UPEP....etc * still making some urine * resume hemodialysis treatment s/p temporary HD catheter placement (done 01/13/23) * DUF today * hemodialysis tomorrow * given necessity of dialysis for ongoing optimization of his fluid status, the patient will likely need outpatient dialysis on discharge * follow repeat labs and UOP for potential recovery (2) Chronic kidney disease, stage IV (severe): Code(s): N18.4 - Chronic kidney disease, stage 4 (severe) Status: Chronic Assessment and Plan: * creatinine has been fluctuating ~ 2.0 - 2.5mg/dl since earlier this year * suspected etiology of CKD due to hypertension, diabetes, and vascular disease * however, his CHF and need for diuresis as well as suspected TIERRA likely playing a role (3) CHF (congestive heart failure): Qualifiers: Heart failure chronicity: acute Heart failure type: diastolic Qualified Code(s): I50.31 - Acute diastolic (congestive) heart failure Code(s): I50.9 - Heart failure, unspecified Status: Acute Assessment and Plan: * acute exacerbation * appears to be right sided heart failure + diastolic dysfunction * Echo results noted -- normal LVSF, EF 50-55%, mild TR, no other significant valve pathology * presented with dyspnea on exertion, abdominal distention and scrotal edema * still making some urine (on diuretics) but not very much * follow volume status * continue fluid removal with HD (and DUF as needed) * Cardiology following (4) Respiratory failure with hypoxia: Code(s): J96.91 - Respiratory failure, unspecified with hypoxia Status: Acute Assessment and Plan: * multifactorial: * possible COPD * suspected TIERRA/OHS * fluid/volume overload * CHF * anemia * Pulmonary following with recommendations noted * follow respiratory status * continue breathing treatments, diuretics, and dialysis/DUF * s/p repeat right thoracentesis on 01/05/23 * s/p right heart catheterization (on 01/06/23) with results noted * continue to push fluid removal as tolerated with dialysis + DUF * however, he is already 30L negative since admission!! * Pulmonary following (5) Hypertension: Qualifiers: Hypertension type: primary hypertension Qualified Code(s): I10 - Essential (primary) hypertension Code(s): I10 - Essential (primary) hypertension Status: Chronic Assessment and Plan: * reasonable control * follow trend of hemodynamics (6) Anemia: Qualifiers: Anemia type: unspecified type Qualified Code(s): D64.9 - Anemia, unspecified Code(s): D64.9 - Anemia, unspecified Status: Chronic Assessment and Plan: * partly due to CKD but worsened by acute illness * on Epogen with dialysis * PRBC transfusion per protocol * follow trend of H/H (7) Diabetes mellitus with chronic kidney disease: Code(s): E11.22 - Type 2 diabetes mellitus with diabetic chronic kidney disease Status: Chronic As
--- NOTE | 2023-01-13 15:03 | WPDURCON ---
Assessment and Plan Assessment and plan (1) ESRD on hemodialysis: Code(s): N18.6 - End stage renal disease; Z99.2 - Dependence on renal dialysis Status: Acute (2) JOSE M (acute kidney injury): Code(s): N17.9 - Acute kidney failure, unspecified Status: Acute Assessment and Plan: Will get a CT to ensure no obstruction in the upper tracts is present. PHILIP on 12/15/22 was normal without obstruction. (3) Penile lesion: Code(s): N48.9 - Disorder of penis, unspecified Status: Acute Assessment and Plan: Apply triple antibiotic ointment daily to the affected area. No surgical intervention required. Keep rios from applying pressure to area if possible. (4) Penile edema: Code(s): N48.89 - Other specified disorders of penis Status: Acute Assessment and Plan: Apply scrotal support to point penis in an upright position to allow for edema to improve with gravity. (5) BPH (benign prostatic hyperplasia): Code(s): N40.0 - Benign prostatic hyperplasia without lower urinary tract symptoms Status: Acute Assessment and Plan: Start Finasteride and Flomax, keep rios in for 7-10 days, then perform voiding trial at [facility] where he resides. (6) Retention of urine: Code(s): R33.9 - Retention of urine, unspecified Status: Acute (7) UTI (urinary tract infection): Code(s): N39.0 - Urinary tract infection, site not specified Status: Acute Assessment and Plan: E-Coli growing on culture from 01/08/23, Unclear if treatment has been initiated as there are no antibiotics noted on the medicaiton list, would recommend treatment with culture sensitive antibiotics if not done. Repeat urine culture as there is purulent drainage from the urethral meatus. Urology Consult Note HPI Date Seen: 01/13/23 Time Seen: 12:00 Requesting Physician: Jason Zabala MD Primary Care Provider: Clement Garcia, Consult Narrative Reason for consult: penile pain/edema/JOSE M/retention Narrative: Wilfredo Bose is a 57 year old male who presented to the ER initially for genital edema and a CHF exacerbation on 12/15/22. He resides in a detention. He has since gone into JOSE M, with a creatinine above 5.0. He pulled his dialysis catheter out earlier today which was then replaced. He is sedated at the bedside and unable to be aroused for questioning about his health history. He had a PHILIP on 12/15/22 which was normal and showed no obstruction or hydronephrosis. His nurses states he was urinating but not well and only small amounts at a time recently after his rios was removed, therefore they performed a bladder scan which revealed >800cc of urine in his bladder. A new catheter was then placed and purulent/gil drainage was noted upon return as well as a small ulcer on the proximal urethral opening that has eschar present. Wound care did assess the small area on the urethral opening but were unable to treat it. It is unclear how the wound developed. His urine is now clear and yellow draining to gravity without difficulty. All other information was obtained from his chart. Review of Systems Review of Systems: ROS unobtainable: Yes unobtainable due to medical condition PMFSH Past Medical History Medical History Acute renal failure superimposed on chronic kidney disease Anxiety Atrial flutter Benign hypertension with chronic kidney disease Cerebrovascular accident CHF (congestive heart failure) Chronic anemia Chronic anticoagulation Chronic kidney disease, stage IV (severe) Chronic obstructive pulmonary disease Chronic respiratory failure with hypoxia, on home oxygen therapy Combined systolic and diastolic congestive heart failure Coronary artery disease Depression Diabetes Diabetes mellitus with chronic kidney disease Gastroesophageal reflux disease HTN (hypertension) Hyperlipidemia Hypertension Hyp
[2023-01-13] MEDS: EPOETIN ALFA-EPBX 10,000 UNITS/ML VIAL 10000 UNITS IV PUSH (15:53)
[2023-01-13] MEDS: SODIUM CHLORIDE 0.9% IV 1,000 ML 999 ML IV CONT (15:55)
[2023-01-13] MEDS: FERROUS SULFATE 324 MG TABLET PO (17:52)
--- NOTE | 2023-01-13 19:49 | PC.NURSE ---
Pt needing dialysis catheter replaced. Called general surgery office to confirm. Pt BPs normally run soft. Pt has numerous cardiac meds and often needs a dose held until 1200 to allow BP to remain stable. ordered additional dose of 2mg bumex at 0943. Unable to give at that time due to all BP meds given so far. Consent order placed, consent verbal over telephone with dad completed. Griffin to bedside for IJ dialysis cath placement. Pt given 2mg ativan and 1mg morphine preprocedure treatment. Pt tolerated procedure well. CXR showed catheter in place, pt taken to dialysis. Unable to give additional scheduled meds as pt very tired and not arousable enough to swallow safely. When pt returned from dialysis, BP allowed for 1700 dose of bumex to be given. Retimed bumex dose to 2100 and communicated with night RN during report that if BP permitted she would need to give.
[2023-01-13] MEDS: APIXABAN 5 MG TABLET PO (20:04)
[2023-01-13] MEDS: TOLNAFTATE 1% POWDER 45 GM BTL 1 APPLIC TOPICAL (20:05)
[2023-01-13] MEDS: ATORVASTATIN 40 MG TABLET PO (20:05)
[2023-01-13] MEDS: AMITRIPTYLINE HCL 25 MG TABLET 50 MG PO (20:05)
[2023-01-13] MEDS: QUEtiapine FUMARATE 12.5 MG TABLET PO (20:05)
[2023-01-13] MEDS: traZODone HCL 50 MG TABLET 100 MG PO (20:05)
[2023-01-13] MEDS: METOPROLOL TARTRATE 50 MG TAB 100 MG PO (20:06)
[2023-01-13] MEDS: BUMETANIDE INJ 1 MG/4 ML VIAL 2 MG IV PUSH (20:28)
[2023-01-13] MEDS: INSULIN GLARGINE (*BKC) 100 UNITS/ML 10 UNITS SUB-Q (21:12)
[2023-01-13 21:15] LABS: Glucose Point of Care 179 mg/dl (65-105)
--- NOTE | 2023-01-13 23:22 | PC.NURSE ---
urine sent to lab
[2023-01-14] VITALS (36 sets, daily range): BP systolic 79–139; BP diastolic 53–81; PULSE 64–88; RESP 16–24; TEMP 35.7–36.7; O2SAT 96–100
[2023-01-14] MEDS: IPRATROPIUM BR 0.02% INH SOLN 0.5 MG/2.5 ML VIAL INHALATION ×4 (02:11→20:21)
[2023-01-14] MEDS: LEVALBUTEROL NEB 1.25 MG/3 ML INHALATION ×4 (02:11→20:21)
--- NOTE | 2023-01-14 05:13 | PCRCNOTE ---
Apnealink complete while on BIPAP 12/6 r-12 30%
[2023-01-14] MEDS: GABAPENTIN 100 MG CAPSULE PO ×3 (05:31→21:00)
[2023-01-14] MEDS: LEVOTHYROXINE SODIUM 100 MCG TABLET PO (05:32)
[2023-01-14 07:16] LABS: Hematocrit 29.6 % (42.0-52.0); Hemoglobin 8.7 g/dL (14.0-18.0); Mean Corpuscular HGB Conc 29.4 g/dl (32-36); Mean Corpuscular Volume 85.1 fl (80-100); Mean Platelet Volume 9.8 fl (7.4-10.4); Platelet Count Result 224 k/mm3 (150-375); Red Blood Count 3.48 M/mm3 (4.6-6.20); Red Cell Distribution Width 18.6 % (11.5-14.5); White Blood Count 6.5 K/mm3 (4.5-10.0)
[2023-01-14 07:34] LABS: Albumin Level 3.2 g/dL (3.5-5.1); Anion Gap 8 mmol/L (8-16); Blood Urea Nitrogen 60 mg/dL (9-20); Calcium 8.3 mg/dL (8.4-10.2); Carbon Dioxide 30 mmol/L (22-30); Chloride 99 mmol/L (98-107); Estimated CRCL calculation 13 ml/min; Estimated Glomerular Filt Rate 10; Glucose 149 mg/dL (65-110); Magnesium 2.3 mg/dL (1.6-2.3); Phosphorus 6.7 mg/dL (2.5-4.5); Potassium 4.3 mmol/L (3.4-5.0); Sodium 137 mmol/L (137-145)
[2023-01-14 07:35] LABS: Glucose Point of Care 164 mg/dl (65-105)
--- NOTE | 2023-01-14 08:00 | PC.NURSE ---
Patient to dialysis at 07:50.
[2023-01-14] MEDS: UMECLIDINIUM/VILANTEROL 62.5-25 MCG ELLIPTA 1 PUFF INHALATION (08:22)
[2023-01-14] MEDS: EPOETIN ALFA-EPBX 10,000 UNITS/ML VIAL 10000 UNITS IV PUSH (09:15)
[2023-01-14] MEDS: SODIUM CHLORIDE 0.9% IV 1,000 ML 999 ML IV CONT (09:16)
--- NOTE | 2023-01-14 09:41 | PCOTNOTE ---
Pt is currently off the floor for dialysis. Will continue per POC duration/frequency tomorrow.
--- NOTE | 2023-01-14 10:16 | PM.PNNEP ---
Progress Note: A&P Assessment and Plan (1) JOSE M (acute kidney injury): Code(s): N17.9 - Acute kidney failure, unspecified Status: Acute Assessment and Plan: due to ongoing attempts at diuresis with high dose diuretics however, evidence of diuretic resistance noted evaluation noted: renal ultrasound normal urine electrolytes look prerenal (inspite of clear evidence of volume overload) urine eosinophils negative serological testing negative to date (JEZ, ANCA, complements, SPEP, UPEP....etc still making some urine resume hemodialysis treatment s/p temporary HD catheter placement (done 01/13/23) DUF yesterday hemodialysis today given necessity of dialysis for ongoing optimization of his fluid status, the patient will likely need outpatient dialysis on discharge follow repeat labs and UOP for potential recovery (2) Chronic kidney disease, stage IV (severe): Code(s): N18.4 - Chronic kidney disease, stage 4 (severe) Status: Chronic Assessment and Plan: creatinine has been fluctuating ~ 2.0 - 2.5mg/dl since earlier this year suspected etiology of CKD due to hypertension, diabetes, and vascular disease however, his CHF and need for diuresis as well as suspected TIERRA likely playing a role (3) CHF (congestive heart failure): Qualifiers: Heart failure chronicity: acute Heart failure type: diastolic Qualified Code(s): I50.31 - Acute diastolic (congestive) heart failure Code(s): I50.9 - Heart failure, unspecified Status: Acute Assessment and Plan: acute exacerbation appears to be right sided heart failure + diastolic dysfunction Echo results noted -- normal LVSF, EF 50-55%, mild TR, no other significant valve pathology presented with dyspnea on exertion, abdominal distention and scrotal edema still making some urine (on diuretics) but not very much follow volume status continue fluid removal with HD (and DUF as needed) Cardiology following (4) Respiratory failure with hypoxia: Code(s): J96.91 - Respiratory failure, unspecified with hypoxia Status: Acute Assessment and Plan: multifactorial: possible COPD suspected TIERRA/OHS fluid/volume overload CHF anemia Pulmonary following with recommendations noted follow respiratory status continue breathing treatments, diuretics, and dialysis/DUF s/p repeat right thoracentesis on 01/05/23 s/p right heart catheterization (on 01/06/23) with results noted continue to push fluid removal as tolerated with dialysis + DUF however, he is already 30+ L negative since admission!! Pulmonary following (5) Hypertension: Qualifiers: Hypertension type: primary hypertension Qualified Code(s): I10 - Essential (primary) hypertension Code(s): I10 - Essential (primary) hypertension Status: Chronic Assessment and Plan: reasonable control follow trend of hemodynamics (6) Anemia: Qualifiers: Anemia type: unspecified type Qualified Code(s): D64.9 - Anemia, unspecified Code(s): D64.9 - Anemia, unspecified Status: Chronic Assessment and Plan: partly due to CKD but worsened by acute illness on Epogen with dialysis PRBC transfusion per protocol follow trend of H/H (7) Diabetes mellitus with chronic kidney disease: Code(s): E11.22 - Type 2 diabetes mellitus with diabetic chronic kidney disease Status: Chronic Assessment and Plan: follow accuchecks glycemic control per hospitalists Will continue to follow. Subjective Date/time seen: 01/14/23 10:16 Interval history: Follow-up for acute kidney injury on chronic kidney disease in need of renal replacement therapy/hemodialysis. Tolerated session of dry ultrafiltration yesterday afternoon and tolerating hemodialysis treatment at the time of my visit (seen on HD at 10:05AM); respiratory status seems a bit better than when last seen;
--- NOTE | 2023-01-14 10:23 | PM.PNPUL ---
Progress Note: A&P Assessment and Plan (1) CHF (congestive heart failure): Qualifiers: Heart failure chronicity: acute Heart failure type: diastolic Qualified Code(s): I50.31 - Acute diastolic (congestive) heart failure Code(s): I50.9 - Heart failure, unspecified Status: Acute (2) Diabetes: Code(s): E11.9 - Type 2 diabetes mellitus without complications Status: Acute (3) Diabetes mellitus with chronic kidney disease: Code(s): E11.22 - Type 2 diabetes mellitus with diabetic chronic kidney disease Status: Chronic (4) Respiratory failure with hypoxia: Code(s): J96.91 - Respiratory failure, unspecified with hypoxia Status: Acute Assessment and Plan: Abdominal CT showed moderately large pleural effusion on right associated with atelectasis. Reaccumulation of pleural effusion despite aggressive diuresis and fluid removal through dialysis probably indicates that the diastolic dysfunction is severe and that pleural effusion will become chronic. Patient tolerating BiPAP support 12/6 much better. ApneaLink on BiPAP 12/6 and supplemental oxygen showed no evidence of significant oxyhemoglobin desaturation. No further thoracentesis needed as pleural effusion will reaccumulate after a few days. It appears as though the patient has end-stage left ventricular diastolic dysfunction which in conjunction with chronic renal failure, and respiratory failure related to pleural effusions/pulmonary edema places the patient at high risk for increased mortality and morbidity. Since admission patient has lost significant weight. He does not need to return for sleep study to exclude sleep apnea. He will need to continue with BiPAP support using generic pressure (12/6) and supplemental oxygen for his respiratory failure. Plan: Continue with supportive care, monitor respiratory status, out of bed to chair. (5) Pleural effusion: Code(s): J90 - Pleural effusion, not elsewhere classified Status: Acute (6) Paroxysmal atrial fibrillation: Code(s): I48.0 - Paroxysmal atrial fibrillation Status: Chronic Subjective Date/time seen: 01/14/23 10:23 Interval history: Patient has no new respiratory symptoms. Currently having hemodialysis. Underwent ApneaLink last night while on BiPAP support and supplemental oxygen. Was able to tolerate BiPAP support with lower pressures throughout the night. Review of Systems Review of Systems: All systems reviewed & are unremarkable except as noted in HPI and below (HPI and below) Exam Narrative: GENERAL APPEARANCE: Well developed, well nourished, alert and cooperative, and appears to be in mild respiratory distress while on supplemental oxygen via nasal cannula at 2 liters/minute. HEENT: Sclerae anicteric and conjunctivae pink and moist. Extraocular movements were intact and pupils were equal. Dry oral mucosa NECK: Supple. There was no thyroid enlargement, and no tenderness, or masses were felt. CHEST: Normal AP diameter and normal contour without any kyphoscoliosis. LUNGS: Dullness to percussion at the right base posteriorly, rare rhonchi bilaterally no wheezing CARDIAC: There was a irregular rate and rhythm without any murmurs. ABDOMEN: Soft and nontender with normal bowel sounds. There was no organomegaly. LYMPH NODES: No lymphadenopathy was appreciated in the neck. 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 Normal affect. Objective Data Vital Signs Vital Signs: Vital Signs - 24 hr 01/13/23 10:37 01/13/23 14:15 01/13/23 14:29 Temperature 36.5 C Pulse Rate 79 83 75 Respiratory Rate 20 20 20 Blood Pressure 110/72 Pulse Oximetry 98 Oxygen Delivery Oxygen Flow Rate 01/13/23 14:04 01/13/23 13:56 01/13/23 13:57 Temperature 36.6 C Pulse Rate 85 79 Respiratory Rate 26 H Blood Pressure 124/73 109/79 Pulse Oximetry Oxygen Delivery Oxygen Flow
--- NOTE | 2023-01-14 11:47 | PC.NURSE ---
Pt. back from dialysis at 11:45. 3 liters of fluid taken off.
[2023-01-14] MEDS: CEFEPIME 1 GM/NS 50 ML 1 GM/50 ML BAG IVPB (11:49)
[2023-01-14 11:50] LABS: Glucose Point of Care 126 mg/dl (65-105)
[2023-01-14] MEDS: TAMSULOSIN HCL 0.4 MG CAPSULE PO (11:50)
[2023-01-14] MEDS: METOPROLOL TARTRATE 50 MG TAB 100 MG PO (11:50)
[2023-01-14] MEDS: metOLazone 5 MG TABLET 10 MG PO (11:51)
[2023-01-14] MEDS: polyethylene glycoL 3350 17 GM POWD.PACK PO (11:51)
[2023-01-14] MEDS: PANTOPRAZOLE SODIUM IV 40 MG VIAL IV PUSH ×2 (11:51→20:58)
[2023-01-14] MEDS: busPIRone HCL 5 MG TABLET PO ×2 (11:51→16:54)
[2023-01-14] MEDS: ISOSORBIDE MONONITRATE 30 MG TAB.ER.24H PO (11:51)
[2023-01-14] MEDS: PYRIDOXINE HCL 50 MG TABLET PO (11:51)
[2023-01-14] MEDS: APIXABAN 5 MG TABLET PO ×2 (11:51→20:30)
[2023-01-14] MEDS: AMIODARONE HCL 200 MG TABLET 400 MG PO (11:51)
[2023-01-14] MEDS: ASPIRIN 81 MG ENTERIC TABLET PO (11:51)
[2023-01-14] MEDS: ASCORBIC ACID 500 MG TABLET PO (11:52)
[2023-01-14] MEDS: busPIRone HCL 10 MG TABLET PO ×2 (11:52→16:54)
[2023-01-14] MEDS: FERROUS SULFATE 324 MG TABLET PO ×2 (11:52→16:54)
[2023-01-14] MEDS: FAMOTIDINE 20 MG TABLET PO ×2 (11:52→20:30)
[2023-01-14] MEDS: FINASTERIDE 5 MG TABLET PO (11:53)
[2023-01-14] MEDS: ACETAMINOPHEN 325 MG TABLET 650 MG PO (11:56)
[2023-01-14] MEDS: TOLNAFTATE 1% POWDER 45 GM BTL 1 APPLIC TOPICAL ×2 (12:11→20:30)
[2023-01-14] MEDS: NEOMYCIN/POLYMYXIN/BACITRACIN OINTMENT 15 GM TUBE 1 APPLIC TOPICAL (12:11)
[2023-01-14] MEDS: HYDROcodone/acetaminophen (*CRX) 5-325 MG TABLET 1 TAB PO (12:12)
[2023-01-14] MEDS: MUPIROCIN 2% OINT 22 GM TUBE 1 APPLIC EACH NARE ×2 (12:12→20:58)
--- NOTE | 2023-01-14 12:15 | PM.PNCARD ---
Progress Note: A&P Assessment and Plan (1) Respiratory failure with hypoxia: Code(s): J96.91 - Respiratory failure, unspecified with hypoxia Status: Acute Assessment and Plan: . On echocardiogram ejection fraction 50% but evidence of right heart failure. It is combination of acute kidney injury, diastolic heart failure exacerbation. It is optimize volume status via dialysis. Continue Bumex. (2) Atrial flutter: Code(s): I48.92 - Unspecified atrial flutter Status: Acute Assessment and Plan: As above, amiodarone, Eliquis. Heart rate reasonably controlled. Also metoprolol 100 mg b.i.d. (3) CHF (congestive heart failure): Qualifiers: Heart failure chronicity: acute Heart failure type: diastolic Qualified Code(s): I50.31 - Acute diastolic (congestive) heart failure Code(s): I50.9 - Heart failure, unspecified Status: Acute Assessment and Plan: Patient remains on Bumex 2 mg IV b.i.d.. Transition to Bumex 2 mg p.o. b.i.d. for additional diuresis in addition to volume removal with dialysis. Continue to monitor volume status closely. Chest x-ray done yesterday shows extensive infiltrates and fluids. Previously had thoracentesis as well (4) Paroxysmal atrial fibrillation: Code(s): I48.0 - Paroxysmal atrial fibrillation Status: Chronic Assessment and Plan: Patient has been in atrial flutter with variable AV block. Heart rate better controlled on amiodarone, remains on 4 mg t.i.d. since 01/05. Reduce amiodarone to 400 mg daily from b.i.d... Continue apixaban 5 mg twice daily for folic stroke risk reduction. (5) Anemia: Qualifiers: Anemia type: unspecified type Qualified Code(s): D64.9 - Anemia, unspecified Code(s): D64.9 - Anemia, unspecified Status: Chronic Assessment and Plan: Patient remains significantly anemic but stable overall. No doubt contributing to his shortness of breath to some degree. Monitor for bleeding. (6) Chronic respiratory failure with hypoxia, on home oxygen therapy: Code(s): J96.11 - Chronic respiratory failure with hypoxia; Z99.81 - Dependence on supplemental oxygen Status: Acute Assessment and Plan: Diminished breath sounds in right lung, clear at the apex much better aeration on the left. Afebrile. -Continue with volume removal with dialysis in Bumex. 2 L removed previously, aim for an additional 2 L as tolerated with HD (7) Hypertension associated with diabetes: Code(s): E11.59 - Type 2 diabetes mellitus with other circulatory complications; I15.2 - Hypertension secondary to endocrine disorders Status: Acute Assessment and Plan: BP overall fairly stable. Hypotensive this morning. Monitor blood pressure after hemodialysis. (8) Chronic anticoagulation: Code(s): Z79.01 - group home (current) use of anticoagulants Status: Chronic Assessment and Plan: Continue Eliquis 5 mg twice daily. Monitor for bleeding. Follow H&H. Chronic anemia hemoglobin 7.5. (9) ESRD on hemodialysis: Code(s): N18.6 - End stage renal disease; Z99.2 - Dependence on renal dialysis Status: Acute Assessment and Plan: As above continue hemodialysis per Nephrology. Volume removal with hemodialysis and IV Bumex. Patient not making much urine overall. Subjective Date/time seen: Date of service 01/14/23 12:15 Interval history: Reason for visit: Decompensated heart failure, atrial flutter HPI: Patient is a 57-year-old male who has a history of coronary disease.? Details are not known.? He follows with [facility].? He has had progressive lower extremity and scrotal edema as well as worsening shortness of breath over the past several months.? Symptoms worsened to the point that his testicles and foreskin were swollen and painful and decided to come to the hospital for further evaluation.? He was started on IV diuretics and was found to be
--- NOTE | 2023-01-14 12:56 | WPDPN ---
Progress Note: A&P Assessment and Plan (1) CHF (congestive heart failure): Qualifiers: Heart failure chronicity: acute Heart failure type: diastolic Qualified Code(s): I50.31 - Acute diastolic (congestive) heart failure Code(s): I50.9 - Heart failure, unspecified Status: Acute Assessment and Plan: Continue volume removal with dialysis. Appreciate renal input 01/14/2023 interval history:Patient with end-stage renal disease on hemodialysis presented with shortness of breath has been receiving hemodialysis with ultrafiltration which he is tolerating however on 01/11 patient became confused and agitated and removed his dialysis catheter there was bleeding, which? was controlled with the pressor, today patient is still somewhat confused unable to provide detailed review of symptom, on 01/12 spoke with the patient's father regarding possible withdrawing the care and comfort care, family did come and visit the patient has decided to continue to dialysis, today discussed with? surgery service for dialysis catheter, on 01/13 patient had a temporary dialysis catheter placed and had a hemodialysis, as patient was getting volume overloaded, also accorfing to nusing staff, patient penis is red and swollen, seen urologist recommended to continue Limon and apply ointment to the wound and started the patient on finasteride and Flomax, today patient is seen in dialysis, patient is seen by Nephrology, pulmonology and Cardiology recommended to continue present management, will continue to monitor and further recommendation to follow. (2) Respiratory failure with hypoxia: Code(s): J96.91 - Respiratory failure, unspecified with hypoxia Status: Acute Assessment and Plan: Secondary to volume overload. Continue hemodialysis. (3) Acute renal failure superimposed on chronic kidney disease: Code(s): N17.9 - Acute kidney failure, unspecified; N18.9 - Chronic kidney disease, unspecified Status: Acute Assessment and Plan: Hemodialysis. (4) HTN (hypertension): Code(s): I10 - Essential (primary) hypertension Status: Acute Assessment and Plan: Stable (5) Anemia, chronic disease: Code(s): D63.8 - Anemia in other chronic diseases classified elsewhere Status: Acute Assessment and Plan: Monitor hemoglobin (6) Diabetes: Code(s): E11.9 - Type 2 diabetes mellitus without complications Status: Acute Assessment and Plan: Blood sugars reviewed and adequately controlled (7) Paroxysmal atrial fibrillation: Code(s): I48.0 - Paroxysmal atrial fibrillation Status: Chronic Assessment and Plan: On apixaban. On metoprolol, Amiodarone . rates controlled appreciate cardiology input. Subjective Date/time seen: 01/14/23 12:56 Interval history: 01/14/2023 interval history:Patient with end-stage renal disease on hemodialysis presented with shortness of breath has been receiving hemodialysis with ultrafiltration which he is tolerating however on 01/11 patient became confused and agitated and removed his dialysis catheter there was bleeding, which? was controlled with the pressor, today patient is still somewhat confused unable to provide detailed review of symptom, on 01/12 spoke with the patient's father regarding possible withdrawing the care and comfort care, family did come and visit the patient has decided to continue to dialysis, today discussed with? surgery service for dialysis catheter, on 01/13 patient had a temporary dialysis catheter placed and had a hemodialysis, as patient was getting volume overloaded, also accorfing to nusing staff, patient penis is red and swollen, seen urologist recommended to continue Limon and apply ointment to the wound and started the patient on finasteride and Flomax, today patient is seen in dialysis, patient is seen by Nephrology, pulmonology and Cardiology recommended to continue present manageme
[2023-01-14 16:46] LABS: Glucose Point of Care 262 mg/dl (65-105)
[2023-01-14] MEDS: INSULIN ASPART (*BKC) 100 UNITS/ML SUB-Q (16:53)
[2023-01-14 20:00] LABS: Glucose Point of Care 154 mg/dl (65-105)
[2023-01-14] MEDS: ATORVASTATIN 40 MG TABLET PO (20:29)
[2023-01-14] MEDS: QUEtiapine FUMARATE 12.5 MG TABLET PO (20:29)
[2023-01-14] MEDS: FLUTICASONE PROPIONATE 0.05% NA SPR 16 GM BTL (*BKC) 1 SPRAY NASAL (20:30)
[2023-01-14] MEDS: traZODone HCL 50 MG TABLET 100 MG PO (20:30)
[2023-01-14] MEDS: AMITRIPTYLINE HCL 25 MG TABLET 50 MG PO (20:58)
[2023-01-15] VITALS (20 sets, daily range): BP systolic 97–112; BP diastolic 63–76; PULSE 75–96; RESP 16–22; TEMP 36.1–36.8; O2SAT 93–100
[2023-01-15] MEDS: HYDROcodone/acetaminophen (*CRX) 5-325 MG TABLET 1 TAB PO ×4 (00:30→20:19)
[2023-01-15] MEDS: IPRATROPIUM BR 0.02% INH SOLN 0.5 MG/2.5 ML VIAL INHALATION ×4 (03:08→20:27)
[2023-01-15] MEDS: LEVALBUTEROL NEB 1.25 MG/3 ML INHALATION ×4 (03:08→20:26)
[2023-01-15] MEDS: LEVOTHYROXINE SODIUM 100 MCG TABLET PO (06:30)
[2023-01-15] MEDS: GABAPENTIN 100 MG CAPSULE PO ×3 (06:30→20:56)
[2023-01-15 06:50] LABS: Hematocrit 29.1 % (42.0-52.0); Hemoglobin 8.4 g/dL (14.0-18.0); Mean Corpuscular HGB Conc 28.9 g/dl (32-36); Mean Corpuscular Hemoglobin 24.9 pg (26-34); Mean Corpuscular Volume 86.1 fl (80-100); Mean Platelet Volume 9.5 fl (7.4-10.4); Platelet Count Result 204 k/mm3 (150-375); Red Blood Count 3.38 M/mm3 (4.6-6.20); Red Cell Distribution Width 18.6 % (11.5-14.5); White Blood Count 5.2 K/mm3 (4.5-10.0)
[2023-01-15 07:16] LABS: Albumin Level 3.3 g/dL (3.5-5.1); Anion Gap 7 mmol/L (8-16); Blood Urea Nitrogen 39 mg/dL (9-20); Calcium 7.9 mg/dL (8.4-10.2); Carbon Dioxide 25 mmol/L (22-30); Chloride 103 mmol/L (98-107); Estimated CRCL calculation 19 ml/min; Estimated Glomerular Filt Rate 15; Glucose 138 mg/dL (65-110); Magnesium 2.2 mg/dL (1.6-2.3); Phosphorus 5.4 mg/dL (2.5-4.5); Potassium 4.5 mmol/L (3.4-5.0); Sodium 135 mmol/L (137-145)
[2023-01-15] MEDS: UMECLIDINIUM/VILANTEROL 62.5-25 MCG ELLIPTA 1 PUFF INHALATION (07:54)
[2023-01-15] MEDS: ISOSORBIDE MONONITRATE 30 MG TAB.ER.24H PO (08:12)
[2023-01-15] MEDS: busPIRone HCL 10 MG TABLET PO ×3 (08:12→16:58)
[2023-01-15] MEDS: ASPIRIN 81 MG ENTERIC TABLET PO (08:12)
[2023-01-15] MEDS: metOLazone 5 MG TABLET 10 MG PO ×2 (08:12→16:59)
[2023-01-15] MEDS: busPIRone HCL 5 MG TABLET PO ×3 (08:12→16:58)
[2023-01-15] MEDS: ASCORBIC ACID 500 MG TABLET PO (08:12)
[2023-01-15] MEDS: APIXABAN 5 MG TABLET PO ×2 (08:12→20:05)
[2023-01-15] MEDS: AMIODARONE HCL 200 MG TABLET 400 MG PO (08:12)
[2023-01-15] MEDS: TAMSULOSIN HCL 0.4 MG CAPSULE PO (08:12)
[2023-01-15] MEDS: FLUTICASONE PROPIONATE 0.05% NA SPR 16 GM BTL (*BKC) 1 SPRAY NASAL ×2 (08:13→20:08)
[2023-01-15] MEDS: PYRIDOXINE HCL 50 MG TABLET PO (08:13)
[2023-01-15] MEDS: CEFEPIME 1 GM/NS 50 ML 1 GM/50 ML BAG IVPB (08:13)
[2023-01-15] MEDS: METOPROLOL TARTRATE 50 MG TAB 100 MG PO ×2 (08:13→20:08)
[2023-01-15] MEDS: NEOMYCIN/POLYMYXIN/BACITRACIN OINTMENT 15 GM TUBE 1 APPLIC TOPICAL (08:13)
[2023-01-15] MEDS: polyethylene glycoL 3350 17 GM POWD.PACK PO (08:13)
[2023-01-15] MEDS: PANTOPRAZOLE SODIUM IV 40 MG VIAL IV PUSH ×2 (08:13→20:12)
[2023-01-15] MEDS: FINASTERIDE 5 MG TABLET PO (08:13)
[2023-01-15] MEDS: MUPIROCIN 2% OINT 22 GM TUBE 1 APPLIC EACH NARE ×2 (08:14→20:15)
[2023-01-15] MEDS: FAMOTIDINE 20 MG TABLET PO ×2 (08:14→20:07)
[2023-01-15] MEDS: TOLNAFTATE 1% POWDER 45 GM BTL 1 APPLIC TOPICAL ×2 (08:14→20:14)
[2023-01-15] MEDS: BUMETANIDE INJ 2.5 MG/10 ML VIAL 2 MG IV PUSH ×2 (08:14→16:58)
[2023-01-15 08:19] LABS: Glucose Point of Care 133 mg/dl (65-105)
--- NOTE | 2023-01-15 10:03 | PM.IMPN ---
Progress Note: A&P Assessment and Plan (1) CHF (congestive heart failure): Qualifiers: Heart failure chronicity: acute Heart failure type: diastolic Qualified Code(s): I50.31 - Acute diastolic (congestive) heart failure Code(s): I50.9 - Heart failure, unspecified Status: Acute Assessment and Plan: Continue volume removal with dialysis. Appreciate renal input Also on Bumex (2) Respiratory failure with hypoxia: Code(s): J96.91 - Respiratory failure, unspecified with hypoxia Status: Acute Assessment and Plan: Secondary to volume overload. Continue hemodialysis. (3) Acute renal failure superimposed on chronic kidney disease: Code(s): N17.9 - Acute kidney failure, unspecified; N18.9 - Chronic kidney disease, unspecified Status: Acute Assessment and Plan: Hemodialysis. (4) HTN (hypertension): Code(s): I10 - Essential (primary) hypertension Status: Acute Assessment and Plan: Stable (5) Anemia, chronic disease: Code(s): D63.8 - Anemia in other chronic diseases classified elsewhere Status: Acute Assessment and Plan: Monitor hemoglobin (6) Diabetes: Code(s): E11.9 - Type 2 diabetes mellitus without complications Status: Acute Assessment and Plan: Blood sugars reviewed and adequately controlled (7) Paroxysmal atrial fibrillation: Code(s): I48.0 - Paroxysmal atrial fibrillation Status: Chronic Assessment and Plan: On apixaban. On metoprolol, Amiodarone . rates controlled appreciate cardiology input. Subjective Date/time seen: 01/15/23 10:03 Interval history: No new issues overnight Review of Systems Review of Systems: + Shortness of breath. No chest pain. No abdominal pain. All systems reviewed & are unremarkable except as noted in HPI and below (HPI) Constitutional: Constitutional: Denies body ache(s) and Denies excessive sweating Eyes: Eyes: Denies blurry vision ENT: Reports Normal hearing present Cardiovascular: Cardiovascular: Denies chest pain, Denies diaphoresis, Reports leg edema and Reports dyspnea Respiratory: Respiratory: Reports dyspnea Gastrointestinal: Gastrointestinal: Denies abdominal pain Genitourinary: Genitourinary: Denies hematuria and Denies dysuria Musculoskeletal: Musculoskeletal: Denies back pain and Denies myalgias Integumentary/Breasts: Skin/Breast: Denies dry skin Neurologic: Reports Normal hearing present, Denies Abnormal speech present, Denies behavioral changes and Denies confusion Psychiatric: Psychiatric: Denies behavioral changes and Denies confusion Endocrine: Endocrine: Denies excessive sweating Hematologic/Lymphatic: Hematologic/Lymphatic: Denies easy bleeding Allergic/Immunologic: Allergic/Immunologic: Denies GI upset with certain foods Exam Narrative: General: middle aged male in NAD Heart: normal S1 and S2; no rub Lungs: coarse and decreased at bases Abdomen: soft, nontender, nondistended, positive bowel sounds Extremities: no cyanosis or clubbing; 1+ edema; s/p right BKA Skin: warm and dry Objective Data Vital Signs Vital Signs: Vital Signs - 24 hr 01/14/23 10:20 01/14/23 10:40 01/14/23 11:00 Temperature Pulse Rate 72 73 72 Respiratory Rate Blood Pressure 131/74 127/78 126/70 Pulse Oximetry Oxygen Delivery Oxygen Flow Rate 01/14/23 11:20 01/14/23 11:34 01/14/23 11:41 Temperature 97.6 F Pulse Rate 74 72 79 Respiratory Rate 16 Blood Pressure 113/74 124/74 113/81 Pulse Oximetry Oxygen Delivery Oxygen Flow Rate 01/14/23 11:50 01/14/23 11:51 01/14/23 12:00 Temperature Pulse Rate 79 79 70 Respiratory Rate Blood Pressure Pulse Oximetry Oxygen Delivery Oxygen Flow Rate 01/14/23 13:43 01/14/23 11:52 01/14/23 14:10 Temperature 97.8 F Pulse Rate 72 69 Respiratory Rate 20 20 Blood Pressure
[2023-01-15 11:36] LABS: Glucose Point of Care 193 mg/dl (65-105)
--- NOTE | 2023-01-15 11:59 | PM.PNPUL ---
Progress Note: A&P Assessment and Plan (1) CHF (congestive heart failure): Qualifiers: Heart failure chronicity: acute Heart failure type: diastolic Qualified Code(s): I50.31 - Acute diastolic (congestive) heart failure Code(s): I50.9 - Heart failure, unspecified Status: Acute (2) Diabetes: Code(s): E11.9 - Type 2 diabetes mellitus without complications Status: Acute (3) Diabetes mellitus with chronic kidney disease: Code(s): E11.22 - Type 2 diabetes mellitus with diabetic chronic kidney disease Status: Chronic (4) Respiratory failure with hypoxia: Code(s): J96.91 - Respiratory failure, unspecified with hypoxia Status: Acute Assessment and Plan: Abdominal CT showed moderately large pleural effusion on right associated with atelectasis. Reaccumulation of pleural effusion despite aggressive diuresis and fluid removal through dialysis probably indicates that the diastolic dysfunction is severe and that pleural effusion will become chronic. Has not been using BiPAP support at night. Plan: Continue with supportive care BiPAP support at night, supplemental oxygen continuously. (5) Pleural effusion: Code(s): J90 - Pleural effusion, not elsewhere classified Status: Acute (6) Paroxysmal atrial fibrillation: Code(s): I48.0 - Paroxysmal atrial fibrillation Status: Chronic Subjective Date/time seen: 01/15/23 11:59 Interval history: Patient has no new respiratory symptoms. Did not use BiPAP support last night. Shortness of breath as before afebrile, on supplemental oxygen via nasal cannula. Review of Systems Review of Systems: All systems reviewed & are unremarkable except as noted in HPI and below (HPI and below) Exam Narrative: GENERAL APPEARANCE: Well developed, well nourished, alert and cooperative, and appears to be in mild respiratory distress while on supplemental oxygen via nasal cannula at 2 liters/minute. HEENT: Sclerae anicteric and conjunctivae pink and moist. Extraocular movements were intact and pupils were equal. Dry oral mucosa NECK: Supple. There was no thyroid enlargement, and no tenderness, or masses were felt. CHEST: Normal AP diameter and normal contour without any kyphoscoliosis. LUNGS: Dullness to percussion at the right base posteriorly, rare rhonchi bilaterally no wheezing CARDIAC: There was a irregular rate and rhythm without any murmurs. ABDOMEN: Soft and nontender with normal bowel sounds. There was no organomegaly. LYMPH NODES: No lymphadenopathy was appreciated in the neck. 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 Normal affect. Objective Data Vital Signs Vital Signs: Vital Signs - 24 hr 01/14/23 12:00 01/14/23 13:43 01/14/23 14:10 Temperature 36.6 C Pulse Rate 70 72 69 Respiratory Rate 20 20 Blood Pressure 87/53 L Pulse Oximetry 98 Oxygen Delivery Oxygen Flow Rate 01/14/23 14:26 01/14/23 15:16 01/14/23 16:00 Temperature 35.9 C L Pulse Rate 72 68 75 Respiratory Rate 20 20 Blood Pressure 83/62 L Pulse Oximetry 96 Oxygen Delivery Oxygen Flow Rate 01/14/23 16:48 01/14/23 20:23 01/14/23 20:23 Temperature 36.4 C Pulse Rate 88 82 68 Respiratory Rate 16 20 Blood Pressure 92/66 L 79/61 L Pulse Oximetry 96 Oxygen Delivery Oxygen Flow Rate 01/14/23 20:25 01/14/23 20:29 01/14/23 20:00 Temperature 36.7 C Pulse Rate 70 70 70 Respiratory Rate 20 20 Blood Pressure 90/57 L Pulse Oximetry 100 100 Oxygen Delivery Nasal Cannula Oxygen Flow Rate 2 01/14/23 20:00 01/15/23 00:31 01/15/23 00:31 Temperature 36.8 C Pulse Rate 71 94 Respiratory Rate 22 H Blood Pressure 102/67 97/63 L Pulse Oximetry 93 Oxygen Delivery Oxygen Flow Rate 01/15/23 00:00 01/15/23 03:08 01/15/23 05:00 Temperature 36.2 C L Pulse Rate 76 84 75 Respiratory Rate 16 20 Blood Pressure
[2023-01-15] MEDS: FERROUS SULFATE 324 MG TABLET PO ×2 (12:14→16:58)
--- NOTE | 2023-01-15 12:19 | PM.PNNEP ---
Progress Note: A&P Assessment and Plan (1) JOSE M (acute kidney injury): Code(s): N17.9 - Acute kidney failure, unspecified Status: Acute Assessment and Plan: due to ongoing attempts at diuresis with high dose diuretics however, evidence of diuretic resistance noted evaluation noted: renal ultrasound normal urine electrolytes look prerenal (inspite of clear evidence of volume overload) urine eosinophils negative serological testing negative to date (JEZ, ANCA, complements, SPEP, UPEP....etc still making some urine resume hemodialysis treatment s/p temporary HD catheter placement (done 01/13/23) plan HD tomorrow since his outpt dialysis schedule to be M/W/F will need new tunneled HD catheter prior to discharge (currently only has temporary HD catheter) given necessity of ongoing dialysis/DUF support for ongoing optimization of his fluid status, the patient will need outpatient dialysis on discharge whether he will remain dialysis dependent remains to be seen.... follow repeat labs and UOP for potential recovery (2) Chronic kidney disease, stage IV (severe): Code(s): N18.4 - Chronic kidney disease, stage 4 (severe) Status: Chronic Assessment and Plan: creatinine has been fluctuating ~ 2.0 - 2.5mg/dl since earlier this year suspected etiology of CKD due to hypertension, diabetes, and vascular disease however, his CHF/diastolic dysfunction and need for diuresis as well as suspected TIERRA likely playing a role (3) CHF (congestive heart failure): Qualifiers: Heart failure chronicity: acute Heart failure type: diastolic Qualified Code(s): I50.31 - Acute diastolic (congestive) heart failure Code(s): I50.9 - Heart failure, unspecified Status: Acute Assessment and Plan: acute exacerbation appears to be right sided heart failure + diastolic dysfunction Echo results noted -- normal LVSF, EF 50-55%, mild TR, no other significant valve pathology presented with dyspnea on exertion, abdominal distention and scrotal edema still making some urine (on diuretics) but not very much follow volume status continue fluid removal with HD (and DUF as needed) Cardiology following (4) Respiratory failure with hypoxia: Code(s): J96.91 - Respiratory failure, unspecified with hypoxia Status: Acute Assessment and Plan: multifactorial: possible COPD suspected TIERRA/OHS fluid/volume overload CHF anemia Pulmonary following with recommendations noted follow respiratory status continue breathing treatments, diuretics, and dialysis/DUF s/p repeat right thoracentesis on 01/05/23 s/p right heart catheterization (on 01/06/23) with results noted continue to push fluid removal as tolerated with dialysis + DUF however, he is already 30+ L negative since admission!! Pulmonary following (5) Hypertension: Qualifiers: Hypertension type: primary hypertension Qualified Code(s): I10 - Essential (primary) hypertension Code(s): I10 - Essential (primary) hypertension Status: Chronic Assessment and Plan: reasonable control follow trend of hemodynamics (6) Anemia: Qualifiers: Anemia type: unspecified type Qualified Code(s): D64.9 - Anemia, unspecified Code(s): D64.9 - Anemia, unspecified Status: Chronic Assessment and Plan: partly due to CKD but worsened by acute illness on Epogen with dialysis PRBC transfusion per protocol follow trend of H/H (7) UTI (urinary tract infection): Code(s): N39.0 - Urinary tract infection, site not specified Status: Acute Assessment and Plan: urine culture with E.coli on antibiotics (8) Diabetes mellitus with chronic kidney disease: Code(s): E11.22 - Type 2 diabetes mellitus with diabetic chronic kidney disease Status: Chronic Assessment and Plan: follow accuchecks glycemic control per ho
--- NOTE | 2023-01-15 12:19 | P.PNNP_ITS ---
Progress Note: A&P Assessment and Plan (1) JOSE M (acute kidney injury): Code(s): N17.9 - Acute kidney failure, unspecified Status: Acute Assessment and Plan: * due to ongoing attempts at diuresis with high dose diuretics * however, evidence of diuretic resistance noted * evaluation noted: * renal ultrasound normal * urine electrolytes look prerenal (inspite of clear evidence of volume overload) * urine eosinophils negative * serological testing negative to date (JEZ, ANCA, complements, SPEP, UPEP....etc * still making some urine * resume hemodialysis treatment s/p temporary HD catheter placement (done 01/13/23) * plan HD tomorrow since his outpt dialysis schedule to be M/W/F * will need new tunneled HD catheter prior to discharge (currently only has temporary HD catheter) * given necessity of ongoing dialysis/DUF support for ongoing optimization of his fluid status, the patient will need outpatient dialysis on discharge * whether he will remain dialysis dependent remains to be seen.... * follow repeat labs and UOP for potential recovery (2) Chronic kidney disease, stage IV (severe): Code(s): N18.4 - Chronic kidney disease, stage 4 (severe) Status: Chronic Assessment and Plan: * creatinine has been fluctuating ~ 2.0 - 2.5mg/dl since earlier this year * suspected etiology of CKD due to hypertension, diabetes, and vascular disease * however, his CHF/diastolic dysfunction and need for diuresis as well as suspected TIERRA likely playing a role (3) CHF (congestive heart failure): Qualifiers: Heart failure chronicity: acute Heart failure type: diastolic Qualified Code(s): I50.31 - Acute diastolic (congestive) heart failure Code(s): I50.9 - Heart failure, unspecified Status: Acute Assessment and Plan: * acute exacerbation * appears to be right sided heart failure + diastolic dysfunction * Echo results noted -- normal LVSF, EF 50-55%, mild TR, no other significant valve pathology * presented with dyspnea on exertion, abdominal distention and scrotal edema * still making some urine (on diuretics) but not very much * follow volume status * continue fluid removal with HD (and DUF as needed) * Cardiology following (4) Respiratory failure with hypoxia: Code(s): J96.91 - Respiratory failure, unspecified with hypoxia Status: Acute Assessment and Plan: * multifactorial: * possible COPD * suspected TIERRA/OHS * fluid/volume overload * CHF * anemia * Pulmonary following with recommendations noted * follow respiratory status * continue breathing treatments, diuretics, and dialysis/DUF * s/p repeat right thoracentesis on 01/05/23 * s/p right heart catheterization (on 01/06/23) with results noted * continue to push fluid removal as tolerated with dialysis + DUF * however, he is already 30+ L negative since admission!! * Pulmonary following (5) Hypertension: Qualifiers: Hypertension type: primary hypertension Qualified Code(s): I10 - Essential (primary) hypertension Code(s): I10 - Essential (primary) hypertension Status: Chronic Assessment and Plan: * reasonable control * follow trend of hemodynamics (6) Anemia: Qualifiers: Anemia type: unspecified type Qualified Code(s): D64.9 - Anemia, unspecified Code(s): D64.9 - Anemia, unspecified Status: Chronic Assessment and Plan: * partly due to CKD but worsened by acute illness * on Epogen with dialysis * PRBC tr
--- NOTE | 2023-01-15 13:43 | PM.PNCARD ---
Progress Note: A&P Assessment and Plan (1) Respiratory failure with hypoxia: Code(s): J96.91 - Respiratory failure, unspecified with hypoxia Status: Acute Assessment and Plan: . On echocardiogram ejection fraction 50% but evidence of right heart failure. It is combination of acute kidney injury, diastolic heart failure exacerbation. Patient felt much better after receiving dialysis yesterday. Plan for dialysis tomorrow. Continue Bumex (2) Atrial flutter: Code(s): I48.92 - Unspecified atrial flutter Status: Acute Assessment and Plan: Currently on amiodarone, Eliquis. Heart rate reasonably controlled. Also metoprolol 100 mg b.i.d. (3) CHF (congestive heart failure): Qualifiers: Heart failure chronicity: acute Heart failure type: diastolic Qualified Code(s): I50.31 - Acute diastolic (congestive) heart failure Code(s): I50.9 - Heart failure, unspecified Status: Acute Assessment and Plan: Patient remains on Bumex 2 mg IV b.i.d.. Transition to Bumex 2 mg p.o. b.i.d. for additional diuresis in addition to volume removal with dialysis. Nephrology following also continue to monitor volume status closely. Chest x-ray done yesterday shows extensive infiltrates and fluids. Previously had thoracentesis as well (4) Paroxysmal atrial fibrillation: Code(s): I48.0 - Paroxysmal atrial fibrillation Status: Chronic Assessment and Plan: Patient has been in atrial flutter with variable AV block. Heart rate better controlled on amiodarone, continue amiodarone 400 mg daily. After 1 week reduce it to 200 mg daily continue apixaban 5 mg twice daily for folic stroke risk reduction. (5) Anemia: Qualifiers: Anemia type: unspecified type Qualified Code(s): D64.9 - Anemia, unspecified Code(s): D64.9 - Anemia, unspecified Status: Chronic Assessment and Plan: Patient remains significantly anemic but stable overall. No doubt contributing to his shortness of breath to some degree. Monitor for bleeding. (6) Chronic respiratory failure with hypoxia, on home oxygen therapy: Code(s): J96.11 - Chronic respiratory failure with hypoxia; Z99.81 - Dependence on supplemental oxygen Status: Acute Assessment and Plan: Diminished breath sounds in right lung, clear at the apex much better aeration on the left. Afebrile. -Continue with volume removal with dialysis in Bumex. 2 L removed previously, aim for an additional 2 L as tolerated with HD (7) Hypertension associated with diabetes: Code(s): E11.59 - Type 2 diabetes mellitus with other circulatory complications; I15.2 - Hypertension secondary to endocrine disorders Status: Acute Assessment and Plan: BP overall fairly stable. Hypotensive this morning. Monitor blood pressure after hemodialysis. (8) Chronic anticoagulation: Code(s): Z79.01 - care home (current) use of anticoagulants Status: Chronic Assessment and Plan: Continue Eliquis 5 mg twice daily. Monitor for bleeding. Follow H&H. Chronic anemia hemoglobin 7.5. (9) ESRD on hemodialysis: Code(s): N18.6 - End stage renal disease; Z99.2 - Dependence on renal dialysis Status: Acute Assessment and Plan: As above continue hemodialysis per Nephrology. Volume removal with hemodialysis and IV Bumex. Patient not making much urine overall. Subjective Date/time seen: Date of service 01/15/23 13:43 Interval history: Reason for visit: Decompensated heart failure, atrial flutter HPI: Patient is a 57-year-old male who has a history of coronary disease.? Details are not known.? He follows with [facility]? He has had progressive lower extremity and scrotal edema as well as worsening shortness of breath over the past several months.? Symptoms worsened to the point that his testicles and foreskin were swollen and painful and decided to come to the hospital for fu
[2023-01-15 17:06] LABS: Glucose Point of Care 168 mg/dl (65-105)
[2023-01-15 20:02] LABS: Glucose Point of Care 225 mg/dl (65-105)
[2023-01-15] MEDS: AMITRIPTYLINE HCL 25 MG TABLET 50 MG PO (20:05)
[2023-01-15] MEDS: ATORVASTATIN 40 MG TABLET PO (20:07)
[2023-01-15] MEDS: QUEtiapine FUMARATE 12.5 MG TABLET PO (20:13)
[2023-01-15] MEDS: INSULIN GLARGINE (*BKC) 100 UNITS/ML 10 UNITS SUB-Q (20:14)
[2023-01-15] MEDS: traZODone HCL 50 MG TABLET 100 MG PO (20:14)
[2023-01-16] VITALS (36 sets, daily range): BP systolic 86–135; BP diastolic 56–83; PULSE 58–104; RESP 14–18; TEMP 35.4–36.7; O2SAT 94–100
[2023-01-16] MEDS: HYDROcodone/acetaminophen (*CRX) 5-325 MG TABLET 1 TAB PO ×3 (02:18→20:18)
[2023-01-16] MEDS: GABAPENTIN 100 MG CAPSULE PO ×3 (05:13→20:25)
[2023-01-16] MEDS: LEVOTHYROXINE SODIUM 100 MCG TABLET PO (05:13)
[2023-01-16 05:18] LABS: Hematocrit 27.6 % (42.0-52.0); Hemoglobin 8.1 g/dL (14.0-18.0); Mean Corpuscular HGB Conc 29.3 g/dl (32-36); Mean Corpuscular Hemoglobin 24.8 pg (26-34); Mean Corpuscular Volume 84.7 fl (80-100); Mean Platelet Volume 9.9 fl (7.4-10.4); Platelet Count Result 198 k/mm3 (150-375); Red Blood Count 3.26 M/mm3 (4.6-6.20); Red Cell Distribution Width 18.4 % (11.5-14.5); White Blood Count 4.7 K/mm3 (4.5-10.0)
[2023-01-16 05:41] LABS: Anion Gap 9 mmol/L (8-16); Blood Urea Nitrogen 51 mg/dL (9-20); Calcium 7.7 mg/dL (8.4-10.2); Carbon Dioxide 26 mmol/L (22-30); Chloride 102 mmol/L (98-107); Estimated CRCL calculation 17 ml/min; Estimated Glomerular Filt Rate 13; Glucose 171 mg/dL (65-110); Magnesium 2.2 mg/dL (1.6-2.3); Phosphorus 6.5 mg/dL (2.5-4.5); Potassium 4.2 mmol/L (3.4-5.0); Sodium 137 mmol/L (137-145)
[2023-01-16] MEDS: EPOETIN ALFA-EPBX 10,000 UNITS/ML VIAL 20000 UNITS IV PUSH (08:03)
[2023-01-16] MEDS: SODIUM CHLORIDE 0.9% IV 1,000 ML 999 ML IV CONT (08:04)
--- NOTE | 2023-01-16 08:14 | PCOTNOTE ---
Attempted OT re-evaluation, patient is currently off the unit for dialysis. Will follow.
[2023-01-16 08:21] LABS: Glucose Point of Care 142 mg/dl (65-105)
[2023-01-16] MEDS: LEVALBUTEROL NEB 1.25 MG/3 ML INHALATION ×3 (08:29→19:53)
[2023-01-16] MEDS: IPRATROPIUM BR 0.02% INH SOLN 0.5 MG/2.5 ML VIAL INHALATION ×3 (08:29→19:53)
[2023-01-16] MEDS: UMECLIDINIUM/VILANTEROL 62.5-25 MCG ELLIPTA 1 PUFF INHALATION (08:29)
--- NOTE | 2023-01-16 09:01 | PM.PNPUL ---
Progress Note: A&P Assessment and Plan (1) CHF (congestive heart failure): Qualifiers: Heart failure chronicity: acute Heart failure type: diastolic Qualified Code(s): I50.31 - Acute diastolic (congestive) heart failure Code(s): I50.9 - Heart failure, unspecified Status: Acute Assessment and Plan: Patient admitted with fluid overload and right Heart catheterization on 01/06/2022 demonstrated: Findings:: ? Mean right atrial pressure is 18 mmHg. ? right ventricle 65 over 12. ? pulmonary artery pressure 65 over 32.? Pulmonary capillary wedge pressure 24 mmHg.? V-wave to 37.? ? Thermodilution cardiac output averaged 4.8 liters/minute. ? cardiac index is 2.2. Conclusion:: ? Right heart catheterization data indicates high right and left-sided filling pressures, significant pulmonary hypertension and preserved cardiac output.? Patient would benefit from more aggressive volume removal according to these data. the patient had a transudative, neutrophilic, cytology negative, culture negative right pleural effusion on 12/21/2022 and repeat thoracentesis on the right on 01/05/2023 was again cytology negative with a transudate per total protein criteria. 01/16 Patient is currently on hemodialysis with a goal of 3 L fluid removal. He states he is breathing normally without any respiratory issues. Station states he wore BiPAP rate of 12, 12/6 and 30% FiO2 overnight without any issues. Currently the patient is on 2 L nasal cannula saturations 97%. White blood cell count 4.7, creatinine 4 0.7, weight is 90.4 kilos. Plan: I agree with aggressive fluid removal with diuretics and hemodialysis per Cardiology, Renal and hospitalist teams. (2) Respiratory failure with hypoxia: Code(s): J96.91 - Respiratory failure, unspecified with hypoxia Status: Acute Assessment and Plan: Abdominal CT showed moderately large pleural effusion on right associated with atelectasis. Reaccumulation of pleural effusion despite aggressive diuresis and fluid removal through dialysis probably indicates that the diastolic dysfunction is severe and that pleural effusion will become chronic. Has not been using BiPAP support at night. Plan: Continue with supportive care BiPAP support at night, supplemental oxygen continuously. 01/16 Patient is currently on hemodialysis with a goal of 3 L fluid removal. He states he is breathing normally without any respiratory issues. Station states he wore BiPAP rate of 12, 12/6 and 30% FiO2 overnight without any issues. Currently the patient is on 2 L nasal cannula saturations 97%. White blood cell count 4.7, creatinine 4 0.7, weight is 90.4 kilos. Patient has hypoxemic respiratory failure from fluid overload with right pleural effusion and compressive atelectasis. There is no evidence of COPD on CT scan and he is a never smoker, interstitial lung disease, or active infection at this time. the patient was exposed to secondhand smoke and will need outpatient PFTs to assess for obstructive lung disease. In the meantime I would discharge him on bronchodilators pending these PFTs. From a pulmonary perspective patient is ready to be discharged on these pulmonary medications: Anoro Ellipta 62.5-25 at 1 puff q.day Rescue albuterol 2 puffs q.4 hours p.r.n. shortness of breath or wheezing Oxygen at rest and with activity per living facilities protocol. BiPAP at night with a set rate of 12, pressures 12/6 and 3 L bleed in. if the patient is unable to tolerate or does not qualify for BiPAP he should wear 4 L nasal cannula at night. Follow-up in the Pulmonary Clinic in 3-4 weeks. I gave him our business card and informed our production scheduler. Discussed with Dr. Zabala, will sign off, call with questions Subjective Date/time seen: 01/16/23 09:01 Interval history: 12/16/2022: Initial pulmonary consult This 57-year-old man presented with scrotal edema and also leg edema.? The patient has
--- NOTE | 2023-01-16 10:23 | PM.PNNEP ---
Progress Note: A&P Assessment and Plan (1) JOSE M (acute kidney injury): Code(s): N17.9 - Acute kidney failure, unspecified Status: Acute Assessment and Plan: due to ongoing attempts at diuresis with high dose diuretics however, evidence of diuretic resistance noted evaluation noted: renal ultrasound normal urine electrolytes look prerenal (inspite of clear evidence of volume overload) urine eosinophils negative serological testing negative to date (JEZ, ANCA, AntiGBM-ab, complements, SPEP, UPEP....etc) still making some urine resumed on hemodialysis treatment s/p temporary HD catheter placement (done 01/13/23 - previous PermCath was self-dislodged) HD today since his outpatient dialysis schedule to be M/W/F will need new tunneled HD catheter prior to discharge given necessity of ongoing dialysis/DUF support for ongoing optimization of his fluid status, the patient will need to continue dialysis on discharge whether he will remain dialysis dependent remains to be seen.... follow repeat labs and UOP for potential recovery (2) Chronic kidney disease, stage IV (severe): Code(s): N18.4 - Chronic kidney disease, stage 4 (severe) Status: Chronic Assessment and Plan: creatinine has been fluctuating ~ 2.0 - 2.5mg/dl since earlier this year suspected etiology of CKD due to hypertension, diabetes, and vascular disease however, his CHF/diastolic dysfunction and need for diuresis as well as suspected TIERRA likely playing a role (3) CHF (congestive heart failure): Qualifiers: Heart failure chronicity: acute Heart failure type: diastolic Qualified Code(s): I50.31 - Acute diastolic (congestive) heart failure Code(s): I50.9 - Heart failure, unspecified Status: Acute Assessment and Plan: acute exacerbation appears to be right sided heart failure + diastolic dysfunction Echo results noted -- normal LVSF, EF 50-55%, mild TR, no other significant valve pathology presented with dyspnea on exertion, abdominal distention and scrotal edema still making some urine (on diuretics) but not very much follow volume status continue fluid removal with HD (and DUF as needed) Cardiology following (4) Respiratory failure with hypoxia: Code(s): J96.91 - Respiratory failure, unspecified with hypoxia Status: Acute Assessment and Plan: multifactorial: possible COPD suspected TIERRA/OHS fluid/volume overload diastolic CHF anemia follow respiratory status continue breathing treatments, diuretics, and dialysis/DUF s/p repeat right thoracentesis on 01/05/23 need to repeat this again?? s/p right heart catheterization (on 01/06/23) with results noted continue to push fluid removal as tolerated with dialysis + DUF however, he is already 36+ L negative since admission!! Pulmonary following with recommendations noted (5) Hypertension: Qualifiers: Hypertension type: primary hypertension Qualified Code(s): I10 - Essential (primary) hypertension Code(s): I10 - Essential (primary) hypertension Status: Chronic Assessment and Plan: reasonable control follow trend of hemodynamics (6) Anemia: Qualifiers: Anemia type: unspecified type Qualified Code(s): D64.9 - Anemia, unspecified Code(s): D64.9 - Anemia, unspecified Status: Chronic Assessment and Plan: slow improvement partly due to CKD but worsened by acute illness on Epogen with dialysis PRBC transfusion per protocol follow trend of H/H (7) UTI (urinary tract infection): Code(s): N39.0 - Urinary tract infection, site not specified Status: Acute Assessment and Plan: urine culture with E.coli on antibiotics (8) Diabetes mellitus with chronic kidney disease: Code(s): E11.22 - Type 2 diabetes mellitus with diabetic chronic kidney disease Status: Chronic Assessment and Pl
--- NOTE | 2023-01-16 10:23 | P.PNNP_ITS ---
Progress Note: A&P Assessment and Plan (1) JOSE M (acute kidney injury): Code(s): N17.9 - Acute kidney failure, unspecified Status: Acute Assessment and Plan: * due to ongoing attempts at diuresis with high dose diuretics * however, evidence of diuretic resistance noted * evaluation noted: * renal ultrasound normal * urine electrolytes look prerenal (inspite of clear evidence of volume overload) * urine eosinophils negative * serological testing negative to date (JEZ, ANCA, AntiGBM-ab, complements, SPEP, UPEP....etc) * still making some urine * resumed on hemodialysis treatment s/p temporary HD catheter placement (done 01/13/23 - previous PermCath was self-dislodged) * HD today since his outpatient dialysis schedule to be // * will need new tunneled HD catheter prior to discharge * given necessity of ongoing dialysis/DUF support for ongoing optimization of his fluid status, the patient will need to continue dialysis on discharge * whether he will remain dialysis dependent remains to be seen.... * follow repeat labs and UOP for potential recovery (2) Chronic kidney disease, stage IV (severe): Code(s): N18.4 - Chronic kidney disease, stage 4 (severe) Status: Chronic Assessment and Plan: * creatinine has been fluctuating ~ 2.0 - 2.5mg/dl since earlier this year * suspected etiology of CKD due to hypertension, diabetes, and vascular disease * however, his CHF/diastolic dysfunction and need for diuresis as well as suspected TIERRA likely playing a role (3) CHF (congestive heart failure): Qualifiers: Heart failure chronicity: acute Heart failure type: diastolic Qualified Code(s): I50.31 - Acute diastolic (congestive) heart failure Code(s): I50.9 - Heart failure, unspecified Status: Acute Assessment and Plan: * acute exacerbation * appears to be right sided heart failure + diastolic dysfunction * Echo results noted -- normal LVSF, EF 50-55%, mild TR, no other significant valve pathology * presented with dyspnea on exertion, abdominal distention and scrotal edema * still making some urine (on diuretics) but not very much * follow volume status * continue fluid removal with HD (and DUF as needed) * Cardiology following (4) Respiratory failure with hypoxia: Code(s): J96.91 - Respiratory failure, unspecified with hypoxia Status: Acute Assessment and Plan: * multifactorial: * possible COPD * suspected TIERRA/OHS * fluid/volume overload * diastolic CHF * anemia * follow respiratory status * continue breathing treatments, diuretics, and dialysis/DUF * s/p repeat right thoracentesis on 01/05/23 * need to repeat this again?? * s/p right heart catheterization (on 01/06/23) with results noted * continue to push fluid removal as tolerated with dialysis + DUF * however, he is already 36+ L negative since admission!! * Pulmonary following with recommendations noted (5) Hypertension: Qualifiers: Hypertension type: primary hypertension Qualified Code(s): I10 - Essential (primary) hypertension Code(s): I10 - Essential (primary) hypertension Status: Chronic Assessment and Plan: * reasonable control * follow trend of hemodynamics (6) Anemia: Qualifiers: Anemia type: unspecified type Qualified Code(s): D64.9 - Anemia, u nspecified Code(s): D64.9 - Anemia, unspecified Status: Chronic Assessment and Plan: * slow improvement * partly due to CKD but worsened by acute illne
[2023-01-16 11:40] LABS: Glucose Point of Care 130 mg/dl (65-105)
--- NOTE | 2023-01-16 11:46 | PM.IMPN ---
Progress Note: A&P Assessment and Plan (1) CHF (congestive heart failure): Qualifiers: Heart failure chronicity: acute Heart failure type: diastolic Qualified Code(s): I50.31 - Acute diastolic (congestive) heart failure Code(s): I50.9 - Heart failure, unspecified Status: Acute Assessment and Plan: Continue volume removal with dialysis. Appreciate renal input Also on Bumex (2) Respiratory failure with hypoxia: Code(s): J96.91 - Respiratory failure, unspecified with hypoxia Status: Acute Assessment and Plan: Secondary to volume overload. Continue hemodialysis. (3) Acute renal failure superimposed on chronic kidney disease: Code(s): N17.9 - Acute kidney failure, unspecified; N18.9 - Chronic kidney disease, unspecified Status: Acute Assessment and Plan: Hemodialysis. (4) HTN (hypertension): Code(s): I10 - Essential (primary) hypertension Status: Acute Assessment and Plan: Stable (5) Anemia, chronic disease: Code(s): D63.8 - Anemia in other chronic diseases classified elsewhere Status: Acute Assessment and Plan: Monitor hemoglobin (6) Diabetes: Code(s): E11.9 - Type 2 diabetes mellitus without complications Status: Acute Assessment and Plan: Blood sugars reviewed and adequately controlled (7) Paroxysmal atrial fibrillation: Code(s): I48.0 - Paroxysmal atrial fibrillation Status: Chronic Assessment and Plan: On apixaban. On metoprolol, Amiodarone . rates controlled appreciate cardiology input. (8) UTI (urinary tract infection): Code(s): N39.0 - Urinary tract infection, site not specified Status: Acute Assessment and Plan: UTI with ESBL. Continue IV cefepime once a day for renal dosing for 7 days Subjective Date/time seen: 01/16/23 11:46 Interval history: No change overnight Review of Systems Review of Systems: All systems reviewed & are unremarkable except as noted in HPI and below (HPI and below) Constitutional: Constitutional: Reports no additional constitutional complaints ENT: Reports system reviewed and no additional complaints, except as documented Cardiovascular: Cardiovascular: Reports no additional cardiovascular complaints Respiratory: Respiratory: Reports no additional respiratory complaints Gastrointestinal: Gastrointestinal: Reports no additional gastrointestinal complaints Musculoskeletal: Musculoskeletal: Reports no additional musculoskeletal complaints Neurologic: Reports system reviewed and no additional complaints, except as documented Psychiatric: Psychiatric: Reports no additional psychiatric complaints Endocrine: Endocrine: Reports no additional endocrine complaints Hematologic/Lymphatic: Hematologic/Lymphatic: Reports no additional hematologic/lymphatic complaints Allergic/Immunologic: Allergic/Immunologic: Reports no additional allergic/immunologic complaints Exam Narrative: General: middle aged male in NAD Heart: normal S1 and S2; no rub Lungs: coarse and decreased at bases Abdomen: soft, nontender, nondistended, positive bowel sounds Extremities: no cyanosis or clubbing; 1+ edema; s/p right BKA Skin: warm and dry Objective Data Vital Signs Vital Signs: Vital Signs - 24 hr 01/15/23 12:00 01/15/23 13:33 01/15/23 13:50 Temperature Pulse Rate 81 93 83 Respiratory Rate 20 20 Blood Pressure Pulse Oximetry Oxygen Delivery Oxygen Flow Rate Fraction of Inspired Oxygen 01/15/23 13:00 01/15/23 16:00 01/15/23 20:08 Temperature 96.9 F L Pulse Rate 95 85 96 Respiratory Rate 20 Blood Pressure 105/66 Pulse Oximetry 100 Oxygen Delivery Oxygen Flow Rate Fraction of Inspired Oxygen 01/15/23 21:00 01/15/23 20:00 01/15/23 20:00 Temperature 97.8 F Pulse Rate 95 82 Respiratory Rate 16 Blood Pressure 112/67 Pulse Ox
--- NOTE | 2023-01-16 12:41 | PM.PNCARD ---
Progress Note: A&P Assessment and Plan (1) Respiratory failure with hypoxia: Code(s): J96.91 - Respiratory failure, unspecified with hypoxia Status: Acute Assessment and Plan: . On echocardiogram ejection fraction 50% but evidence of right heart failure. It is combination of acute kidney injury, diastolic heart failure exacerbation. His breathing is better. He is due for dialysis today apart continue to optimize volume status via dialysis. Continue Bumex (2) Atrial flutter: Code(s): I48.92 - Unspecified atrial flutter Status: Acute Assessment and Plan: Currently on amiodarone, Eliquis. Heart rate reasonably controlled. Also metoprolol 100 mg b.i.d. (3) CHF (congestive heart failure): Qualifiers: Heart failure chronicity: acute Heart failure type: diastolic Qualified Code(s): I50.31 - Acute diastolic (congestive) heart failure Code(s): I50.9 - Heart failure, unspecified Status: Acute Assessment and Plan: Patient remains on Bumex 2 mg IV b.i.d.. Transition to Bumex 2 mg p.o. b.i.d. for additional diuresis in addition to volume removal with dialysis. Nephrology following also continue to monitor volume status closely. Chest x-ray done yesterday shows extensive infiltrates and fluids. Previously had thoracentesis as well (4) Paroxysmal atrial fibrillation: Code(s): I48.0 - Paroxysmal atrial fibrillation Status: Chronic Assessment and Plan: Patient has been in atrial flutter with variable AV block. Heart rate better controlled on amiodarone, continue amiodarone 400 mg daily. After 1 week reduce it to 200 mg daily continue apixaban 5 mg twice daily for folic stroke risk reduction. (5) Anemia: Qualifiers: Anemia type: unspecified type Qualified Code(s): D64.9 - Anemia, unspecified Code(s): D64.9 - Anemia, unspecified Status: Chronic Assessment and Plan: Patient remains significantly anemic but stable overall. No doubt contributing to his shortness of breath to some degree. Monitor for bleeding. Hemoglobin today 8.1 which is trending down (6) Chronic respiratory failure with hypoxia, on home oxygen therapy: Code(s): J96.11 - Chronic respiratory failure with hypoxia; Z99.81 - Dependence on supplemental oxygen Status: Acute Assessment and Plan: Diminished breath sounds in right lung, clear at the apex much better aeration on the left. Afebrile. -Continue with volume removal with dialysis in Bumex. 2 L removed previously, aim for an additional 2 L as tolerated with HD (7) Hypertension associated with diabetes: Code(s): E11.59 - Type 2 diabetes mellitus with other circulatory complications; I15.2 - Hypertension secondary to endocrine disorders Status: Acute Assessment and Plan: BP overall fairly stable. Hypotensive this morning. Monitor blood pressure after hemodialysis. (8) Chronic anticoagulation: Code(s): Z79.01 - longterm (current) use of anticoagulants Status: Chronic Assessment and Plan: Continue Eliquis 5 mg twice daily. Monitor for bleeding. Follow H&H. Chronic anemia hemoglobin 7.5. Hemoglobin today trending down to 8.1. Monitor closely. (9) ESRD on hemodialysis: Code(s): N18.6 - End stage renal disease; Z99.2 - Dependence on renal dialysis Status: Acute Assessment and Plan: As above continue hemodialysis per Nephrology. Volume removal with hemodialysis and IV Bumex. Patient not making much urine overall. Subjective Date/time seen: 01/16/23 12:41 Interval history: Reason for visit: Decompensated heart failure, atrial flutter HPI: Patient is a 57-year-old male who has a history of coronary disease.? Details are not known.? He follows with [facility].? He has had progressive lower extremity and scrotal edema as well as worsening shortness of breath over the past several months.? Symptoms worsened to the
[2023-01-16] MEDS: PANTOPRAZOLE SODIUM IV 40 MG VIAL IV PUSH ×2 (12:48→20:23)
[2023-01-16] MEDS: BUMETANIDE INJ 2.5 MG/10 ML VIAL 2 MG IV PUSH (12:48)
[2023-01-16] MEDS: FINASTERIDE 5 MG TABLET PO (12:49)
[2023-01-16] MEDS: TAMSULOSIN HCL 0.4 MG CAPSULE PO (12:49)
[2023-01-16] MEDS: METOPROLOL TARTRATE 50 MG TAB 100 MG PO ×2 (12:49→20:22)
[2023-01-16] MEDS: busPIRone HCL 10 MG TABLET PO ×2 (12:49→16:44)
[2023-01-16] MEDS: FAMOTIDINE 20 MG TABLET PO ×2 (12:49→20:21)
[2023-01-16] MEDS: metOLazone 5 MG TABLET 10 MG PO ×2 (12:49→16:44)
[2023-01-16] MEDS: busPIRone HCL 5 MG TABLET PO ×2 (12:49→16:44)
[2023-01-16] MEDS: APIXABAN 5 MG TABLET PO ×2 (12:50→20:17)
[2023-01-16] MEDS: FLUTICASONE PROPIONATE 0.05% NA SPR 16 GM BTL (*BKC) 1 SPRAY NASAL ×2 (12:50→20:21)
[2023-01-16] MEDS: ASCORBIC ACID 500 MG TABLET PO (12:50)
[2023-01-16] MEDS: ASPIRIN 81 MG ENTERIC TABLET PO (12:50)
[2023-01-16] MEDS: AMIODARONE HCL 200 MG TABLET 400 MG PO (12:50)
[2023-01-16] MEDS: PYRIDOXINE HCL 50 MG TABLET PO (12:53)
[2023-01-16] MEDS: MUPIROCIN 2% OINT 22 GM TUBE 1 APPLIC EACH NARE ×2 (12:55→20:23)
[2023-01-16] MEDS: NEOMYCIN/POLYMYXIN/BACITRACIN OINTMENT 15 GM TUBE 1 APPLIC TOPICAL (12:57)
[2023-01-16 16:31] LABS: Glucose Point of Care 145 mg/dl (65-105)
[2023-01-16] MEDS: FERROUS SULFATE 324 MG TABLET PO (16:44)
[2023-01-16] MEDS: CEFEPIME 1 GM/NS 50 ML 1 GM/50 ML BAG IVPB (16:44)
[2023-01-16] MEDS: ATORVASTATIN 40 MG TABLET PO (20:20)
[2023-01-16] MEDS: AMITRIPTYLINE HCL 25 MG TABLET 50 MG PO (20:20)
[2023-01-16] MEDS: TOLNAFTATE 1% POWDER 45 GM BTL 1 APPLIC TOPICAL (20:23)
[2023-01-16] MEDS: traZODone HCL 50 MG TABLET 100 MG PO (20:24)
[2023-01-16] MEDS: QUEtiapine FUMARATE 12.5 MG TABLET PO (20:24)
[2023-01-16] MEDS: BENZOCAINE/MENTHOL (*BKC) 18 EA LOZENGE 1 LOZENGE PO (20:25)
[2023-01-16] MEDS: INSULIN GLARGINE (*BKC) 100 UNITS/ML 10 UNITS SUB-Q (20:35)
[2023-01-16 23:43] LABS: Glucose Point of Care 171 mg/dl (65-105)
[2023-01-17] VITALS (12 sets, daily range): BP systolic 104–130; BP diastolic 68–76; PULSE 64–99; RESP 14–18; TEMP 36.4–36.8; O2SAT 98–100
[2023-01-17] MEDS: LEVALBUTEROL NEB 1.25 MG/3 ML INHALATION ×3 (01:04→13:10)
[2023-01-17] MEDS: IPRATROPIUM BR 0.02% INH SOLN 0.5 MG/2.5 ML VIAL INHALATION ×3 (01:05→13:10)
[2023-01-17] MEDS: HYDROcodone/acetaminophen (*CRX) 5-325 MG TABLET 1 TAB PO ×2 (03:43→10:24)
[2023-01-17] MEDS: BENZOCAINE/MENTHOL (*BKC) 18 EA LOZENGE 1 LOZENGE PO (03:44)
[2023-01-17] MEDS: GABAPENTIN 100 MG CAPSULE PO ×2 (05:21→12:41)
[2023-01-17] MEDS: LEVOTHYROXINE SODIUM 100 MCG TABLET PO (05:21)
[2023-01-17 06:23] LABS: Hematocrit 30.6 % (42.0-52.0); Mean Corpuscular HGB Conc 29.4 g/dl (32-36); Mean Corpuscular Hemoglobin 24.4 pg (26-34); Mean Corpuscular Volume 82.9 fl (80-100); Mean Platelet Volume 10.5 fl (7.4-10.4); Platelet Count Result 227 k/mm3 (150-375); Red Blood Count 3.69 M/mm3 (4.6-6.20); Red Cell Distribution Width 18.4 % (11.5-14.5); White Blood Count 5.7 K/mm3 (4.5-10.0)
[2023-01-17 06:37] LABS: Albumin Level 3.2 g/dL (3.5-5.1); Anion Gap 5 mmol/L (8-16); Blood Urea Nitrogen 33 mg/dL (9-20); Calcium 7.8 mg/dL (8.4-10.2); Carbon Dioxide 31 mmol/L (22-30); Chloride 98 mmol/L (98-107); Estimated CRCL calculation 20 ml/min; Estimated Glomerular Filt Rate 16; Glucose 170 mg/dL (65-110); Magnesium 2.1 mg/dL (1.6-2.3); Phosphorus 4.9 mg/dL (2.5-4.5); Potassium 4.2 mmol/L (3.4-5.0); Sodium 134 mmol/L (137-145)
[2023-01-17] MEDS: UMECLIDINIUM/VILANTEROL 62.5-25 MCG ELLIPTA 1 PUFF INHALATION (07:10)
[2023-01-17 07:55] LABS: Glucose Point of Care 173 mg/dl (65-105)
[2023-01-17] MEDS: BUMETANIDE INJ 2.5 MG/10 ML VIAL 2 MG IV PUSH (08:19)
[2023-01-17] MEDS: PANTOPRAZOLE SODIUM IV 40 MG VIAL IV PUSH (08:19)
[2023-01-17] MEDS: busPIRone HCL 10 MG TABLET PO ×2 (08:20→12:44)
[2023-01-17] MEDS: ASPIRIN 81 MG ENTERIC TABLET PO (08:20)
[2023-01-17] MEDS: APIXABAN 5 MG TABLET PO (08:20)
[2023-01-17] MEDS: ASCORBIC ACID 500 MG TABLET PO (08:20)
[2023-01-17] MEDS: AMIODARONE HCL 200 MG TABLET 400 MG PO (08:20)
[2023-01-17] MEDS: busPIRone HCL 5 MG TABLET PO ×2 (08:20→12:45)
[2023-01-17] MEDS: PYRIDOXINE HCL 50 MG TABLET PO (08:21)
[2023-01-17] MEDS: METOPROLOL TARTRATE 50 MG TAB 100 MG PO (08:21)
[2023-01-17] MEDS: TAMSULOSIN HCL 0.4 MG CAPSULE PO (08:21)
[2023-01-17] MEDS: FINASTERIDE 5 MG TABLET PO (08:21)
[2023-01-17] MEDS: FLUTICASONE PROPIONATE 0.05% NA SPR 16 GM BTL (*BKC) 1 SPRAY NASAL (08:21)
[2023-01-17] MEDS: FAMOTIDINE 20 MG TABLET PO (08:21)
[2023-01-17] MEDS: MUPIROCIN 2% OINT 22 GM TUBE 1 APPLIC EACH NARE (08:22)
[2023-01-17] MEDS: NEOMYCIN/POLYMYXIN/BACITRACIN OINTMENT 15 GM TUBE 1 APPLIC TOPICAL (08:23)
[2023-01-17] MEDS: metOLazone 5 MG TABLET 10 MG PO (08:23)
--- NOTE | 2023-01-17 11:08 | PM.DS ---
DS: Admitting Diagnosis Discharge Date 01/17/2023 Admitting Diagnosis Acute kidney injury Congestive heart failure exacerbation Hypoxia DS: Discharge Diagnosis Discharge Diagnosis (1) ESRD on hemodialysis: Code(s): N18.6 - End stage renal disease; Z99.2 - Dependence on renal dialysis Status: Acute (2) JOSE M (acute kidney injury): Code(s): N17.9 - Acute kidney failure, unspecified Status: Acute (3) HTN (hypertension): Code(s): I10 - Essential (primary) hypertension Status: Acute (4) CHF (congestive heart failure): Qualifiers: Heart failure chronicity: acute Heart failure type: diastolic Qualified Code(s): I50.31 - Acute diastolic (congestive) heart failure Code(s): I50.9 - Heart failure, unspecified Status: Acute (5) UTI (urinary tract infection): Code(s): N39.0 - Urinary tract infection, site not specified Status: Acute (6) Diabetes mellitus with chronic kidney disease: Code(s): E11.22 - Type 2 diabetes mellitus with diabetic chronic kidney disease Status: Chronic DS: Summary Hospital Course Hospital Course: Patient is a 57-year-old male who has a history of coronary disease.? He has had progressive lower extremity and scrotal edema as well as worsening shortness of breath over the past several months.? Symptoms worsened to the point that his testicles and foreskin were swollen and painful and decided to come to the hospital for further evaluation.? He was started on IV diuretics and was found to be in volume overload. Patient's creatinine continued to worsen so Nephrology was consulted. Eventually patient was started on dialysis after a dialysis catheter was placed. One day patient pulled the dialysis catheter also temporary catheter was placed and dialysis was continued. Patient has been receiving dialysis every day during his hospitalization and has been scheduled for outpatient dialysis on Monday and Monday. For his hypoxia pulmonary was consulted and they recommended to continue BiPAP along with oxygen. Cardiology was also consulted for congestive heart failure exacerbation. Patient was not responding to Lasix so cardiology started him on Bumex along with metolazone. For history of AFib with RVR patient was started on amiodarone. Metoprolol dose was increased to 100 mg p.o. b.i.d.. Patient also had UTI and urine culture grew ESBL E coli for which patient has been started on IV cefepime which is to be continued for 7 more days. Patient is clinically stable and is being discharged to SNF. Time Spent with Patient Time attestation: Total time spent providing and/or coordinating discharge services: Exam Narrative: Much more alert, awake, no apparent distress, appears stated age O2 via nasal cannula pleasant and cooperative Const: General: cooperative, healthy appearing, comfortable, no acute distress and uncomfortable; No confusion Orientation/consciousness: oriented to person, patient oriented x3 and No confusion Other: Patient with shortness of breath at rest and with minimal conversation HENMT: Face/Nose/Sinus: Normal nares present Mouth: Yes moist mucous membranes Eyes: General: appearance normal, both eyes and all related structures Sclera: sclerae normal EOM: EOMs intact bilaterally Neck: Neck: supple Carotids: bruit Other: Supple normal range of motion Chest: Other: No reproducible chest wall pain to palpation Resp: Effort & Inspection: normal respiratory effort Auscultation: clear to auscultation bilaterally, rales, rhonchi, wheezes expiratory wheezes and diminished lung sounds Other: Diminished breath sounds in right lung, clear at the apex much better aeration on the left Cardio: Rate: regular rate and tachycardic Rhythm: regular rhythm and abnormal rhythm regularly irregular Heart sounds: Murmur heart sound present Other: Right groin is stable. Bandage removed. No brui
[2023-01-17 11:20] LABS: Glucose Point of Care 218 mg/dl (65-105)
[2023-01-17 11:35] LABS: EDCOVIDSCREEN Negative (Negative)
[2023-01-17] MEDS: INSULIN ASPART (*BKC) 100 UNITS/ML SUB-Q (12:40)
[2023-01-17] MEDS: CEFEPIME 1 GM/NS 50 ML 1 GM/50 ML BAG IVPB (12:40)
[2023-01-17] MEDS: FERROUS SULFATE 324 MG TABLET PO (12:41)
== END 2023-01-17 13:45 | DRG 286 ==
LOC: ANHED 06:17 → ANHIMU 06:51 → ANH3MEDSUR 12-23 10:17 → ANHIMU 12-28 06:36 → ANH3MEDSUR 01-01 14:08
PROVIDERS: Chiropractor; Family Medicine; Internal Medicine; Internal Medicine Nephrology; Internal Medicine Pulmonary Disease; Nurse Practitioner; Specialist; Surgery; Admitting Provider Internal Medicine; Emergency Provider Emergency Medicine; PCP Internal Medicine; Visit Provider Hospitalist
PROC: 0JH60XZ Insertion of Tunneled Vascular Access Device into Chest Subcutaneous Tissue and Fascia, Open Approach (ICD-10-PCS; CPT 36908; principal; 2022-12-30 14:00)
PROC: 4A023N6 Measurement of Cardiac Sampling and Pressure, Right Heart, Percutaneous Approach (ICD-10-PCS; CPT 93451; principal; 2023-01-06 11:15)
DX: I13.0 Hypertensive heart and chronic kidney disease with heart failure and stage 1 through stage 4 chronic kidney disease, or unspecified chronic kidney disease (principal); I50.43 Acute on chronic combined systolic (congestive) and diastolic (congestive) heart failure; J96.21 Acute and chronic respiratory failure with hypoxia; N18.4 Chronic kidney disease, stage 4 (severe); N17.9 Acute kidney failure, unspecified; I48.92 Unspecified atrial flutter; J90 Pleural effusion, not elsewhere classified; N39.0 Urinary tract infection, site not specified; E11.22 Type 2 diabetes mellitus with diabetic chronic kidney disease; Z79.4 Long term (current) use of insulin; I25.10 Atherosclerotic heart disease of native coronary artery without angina pectoris; I48.0 Paroxysmal atrial fibrillation; Z79.01 Long term (current) use of anticoagulants; J44.9 Chronic obstructive pulmonary disease, unspecified; Z87.891 Personal history of nicotine dependence; Z99.81 Dependence on supplemental oxygen; Z66 Do not resuscitate; N50.89 Other specified disorders of the male genital organs; E87.5 Hyperkalemia; D64.9 Anemia, unspecified; Z89.511 Acquired absence of right leg below knee; H10.9 Unspecified conjunctivitis; N48.89 Other specified disorders of penis; B96.20 Unspecified Escherichia coli [E. coli] as the cause of diseases classified elsewhere; N40.1 Benign prostatic hyperplasia with lower urinary tract symptoms; R33.8 Other retention of urine
CPT/HCPCS: 32555; 36415; 36430; 36600; 51702; 71045; 71250; 73630; 74018; 74176; 76770; 77001; 80048; 80053; 80069; 81001; 81050; 82042; 82150; 82274; 82375; 82436; 82550; 82570; 82728; 82805; 82945; 82948; 83050; 83520; 83540; 83550; 83605; 83615; 83690; 83735; 83880; 83883; 83986; 84100; 84155; 84156; 84157; 84165; 84166; 84300; 84311; 84478; 84484; 84540; 85014; 85018; 85025; 85027; 85610; 85730; 85999; 86036; 86038; 86160; 86225; 86704; 86705; 86706; 86850; 86900; 86901; 86923; 87015; 87070; 87075; 87077; 87081; 87086; 87088; 87102; 87116; 87147; 87186; 87205; 87206; 87340; 87426; 88108; 88184; 88305; 89051; 93005; 93451; 94002; 94003; 94640; 94660; 94762; 96374; 96375; 97110; 97161; 97164; 97165; 97168; 97530; 97535; 99285; A9270; C1750; C1752; C1769; C1894; C8929; C9113; C9803; G0257; J0282; J0692; J1644; J1815; J1940; J2060; J2270; J2704; J7030; J7040; J7050; P9016; Q5105; Q9957

== ENCOUNTER 2023-01-20 07:22 | Emergency (ER) | payer MEDICARE, MEDICAID, SELFPAY ==
[2023-01-20] VITALS (18 sets, daily range): BP systolic 110–132; BP diastolic 72–90; PULSE 72–81; RESP 20; TEMP 36.6; O2SAT 90–100
--- NOTE | ~2023-01-20 | XR_ITS ---
Portable chest x-ray Comparison: 01/16/2023 Clinical History: Catheter placement Findings: Right IJ line is in satisfactory position. [id number] right pleural effusion presen t with hazy right basilar airspace disease. There is minimal interstitial prominence the left lung ba se. Stable cardiac monitoring device. Cardiomediastinal silhouette is stable. Bones and soft tissues are unremarkable. Impression: Right IJ line in satisfactory position. [id number] right pleural effusion with probable right basilar atelectasis. Minimal interstitial prominence left lung base, nonspecific. Correlate for mild interstitial edema. Stable cardiac monitoring device. Reviewed, dictated and finalized at location . Impression: Right IJ line in satisfactory position. [id number] right pleural effusion with probable right basilar atelectasi s. Minimal interstitial prominence left lung base, nonspecific. Correlate for mild interstitial edema. Stable cardiac monitoring device.
--- NOTE | 2023-01-20 09:52 | ED.GENADULT ---
HPI - General Adult General Chief complaint: Unspecified Stated complaint: pulled picc out Time Seen by Provider: 01/20/23 07:32 Source: patient, EMS, RN notes reviewed and old records reviewed Mode of arrival: EMS Limitations: no limitations History of Present Illness HPI narrative: This is a 57 year old male with history of UTI, chronic indwelling rios catheter, chronic renal disease on dialysis who presents for evaluation of IV catheter assessment. It is reported that patient accidentally pulled on right IJ catheter yesterday. He states he noticed bleeding at catheter site yesterday. He denies any pain, nausea, vomiting or shortness of breath. He is unsure of its last use. On review of his chart, patient is getting IV cefepime at [facility] for 7 days. Related Data Home Medications Medication Instructions Recorded Confirmed Saccharomyces boulardii 250 mg 250 mg PO DAILY 11/22/22 12/15/22 capsule (Florastor) amitriptyline 50 mg tablet 50 mg PO QHS 11/22/22 12/15/22 apixaban 5 mg tablet (Eliquis) 5 mg PO BID 11/22/22 12/15/22 aspirin 81 mg tablet,delayed 81 mg PO DAILY 11/22/22 12/15/22 release (Adult Low Dose Aspirin) atorvastatin 40 mg tablet (Lipitor) 40 mg PO QHS 11/22/22 12/15/22 benzonatate 100 mg capsule 100 mg PO TID PRN Cough 11/22/22 12/15/22 buspirone 15 mg tablet 15 mg PO TID 11/22/22 12/15/22 famotidine 20 mg tablet 20 mg PO Q12H 11/22/22 12/15/22 fluticasone propionate 110 1 puff inhalation Q12H 11/22/22 12/15/22 mcg/actuation HFA aerosol inhaler gabapentin 100 mg capsule 100 mg PO Q8H 11/22/22 12/15/22 guaifenesin 100 mg/5 mL oral liquid 200 mg PO Q6H PRN Cough 11/22/22 12/15/22 ipratropium 0.5 mg-albuterol 3 mg 3 ml inhalation Q6H PRN Shortness 11/22/22 12/15/22 (2.5 mg base)/3 mL nebulization Of Breath soln isosorbide dinitrate 30 mg tablet 30 mg PO DAILY 11/22/22 12/15/22 pyridoxine (vitamin B6) 50 mg 50 mg PO DAILY 11/22/22 12/15/22 tablet sennosides 8.6 mg-docusate sodium 1 tab-cap PO BID 11/22/22 12/15/22 50 mg capsule (Senna Plus) tiotropium bromide 18 mcg capsule 1 cap inhalation DAILY 11/22/22 12/15/22 with inhalation device (Spiriva with HandiHaler) trazodone 100 mg tablet 100 mg PO QHS 11/22/22 12/15/22 umeclidinium 62.5 mcg-vilanterol 1 inh inhalation DAILY 11/22/22 12/15/22 25 mcg/actuation powdr for inhalation (Anoro Ellipta) clopidogrel 75 mg tablet 75 mg PO DAILY 12/15/22 12/15/22 dulaglutide 0.75 mg/0.5 mL 0.75 mg subcut WEEKLY 12/15/22 12/15/22 subcutaneous pen injector (Trulicity) insulin glargine 100 unit/mL 10 unit subcut HS 12/15/22 12/15/22 subcutaneous solution (Lantus U-100 Insulin) insulin lispro 100 unit/mL 10 unit subcut AC 12/15/22 12/15/22 subcutaneous solution (Admelog U-100 Insulin lispro) Allergies Allergy/AdvReac Type Severity Reaction Status Date / Time No Known Allergies Allergy Verified 12/15/22 08:36 Review of Systems Constitutional: Constitutional: Denies weakness Cardiovascular: Cardiovascular: Denies syncope, Denies rapid heart rate, Denies irregular heart rhythm, Denies leg edema and Denies dyspnea Respiratory: Respiratory: Denies chest congestion, Denies hemoptysis, Denies excessive phlegm production and Denies dyspnea Gastrointestinal: Gastrointestinal: Denies abdominal pain, Denies hematochezia, Denies diarrhea and Denies vomiting Genitourinary: Genitourinary: Denies hematuria, Denies dysuria, Denies penile discharge and Denies testicular pain Musculoskeletal: Musculoskeletal: Denies joint swelling, Denies loss of height and Denies muscle weakness Neurologic: Denies syncope, Denies focal weakness and Denies weakness PMFSH Past Medical History Medical History Acute renal failure superimposed on chronic kidney disease Anxiety Atrial flutter Benign hypertension with chronic kidney disease Cerebrovascular accident CHF (congestive heart failure) Chroni
--- NOTE | 2023-01-20 10:16 | PC.NURSE ---
Per xray the patient's right IJ Tridialysis catheter is in good position. Site cleaned and dressing changed. Pigtail catheter with good blood return. Flushes easily. made aware.
== END 2023-01-20 11:30 ==
PROVIDERS: Emergency Provider General Practice; PCP Internal Medicine
DX: Z45.2 Encounter for adjustment and management of vascular access device (principal); E11.22 Type 2 diabetes mellitus with diabetic chronic kidney disease; I13.0 Hypertensive heart and chronic kidney disease with heart failure and stage 1 through stage 4 chronic kidney disease, or unspecified chronic kidney disease; I50.40 Unspecified combined systolic (congestive) and diastolic (congestive) heart failure; N18.4 Chronic kidney disease, stage 4 (severe); Z99.2 Dependence on renal dialysis; I48.0 Paroxysmal atrial fibrillation; I48.92 Unspecified atrial flutter; D64.9 Anemia, unspecified; J44.9 Chronic obstructive pulmonary disease, unspecified; J96.11 Chronic respiratory failure with hypoxia; E11.42 Type 2 diabetes mellitus with diabetic polyneuropathy; E11.51 Type 2 diabetes mellitus with diabetic peripheral angiopathy without gangrene; I73.9 Peripheral vascular disease, unspecified; K21.9 Gastro-esophageal reflux disease without esophagitis; E78.5 Hyperlipidemia, unspecified; Z99.81 Dependence on supplemental oxygen; Z95.1 Presence of aortocoronary bypass graft; Z87.891 Personal history of nicotine dependence; Z66 Do not resuscitate; Z89.511 Acquired absence of right leg below knee; Z79.01 Long term (current) use of anticoagulants; Z79.4 Long term (current) use of insulin
CPT/HCPCS: 71045; 99283

== ENCOUNTER 2023-05-09 16:02 | Emergency (ER) | payer OTHER, MEDICARE, MEDICAID, SELFPAY ==
[2023-05-09] VITALS (16 sets, daily range): BP systolic 98–118; BP diastolic 74–84; PULSE 100–106; RESP 18; TEMP 36.6; O2SAT 98–100
--- NOTE | ~2023-05-09 | XR_ITS ---
EXAMINATION: XR elbow RT min 3V DATE: 05/09/2023 16:56 INDICATION: Right elbow pain and tenderness TECHNIQUE: Anteroposterior, two oblique and lateral views of the right elbow were obtained. COMPARISON: None. FINDINGS: Alignment is normal. No fracture or joint effusion. Joint spaces are normal. Soft tissues are unremar kable. IMPRESSION: 1. Negative right elbow radiographs. Reviewed, dictated and finalized at location A.
--- NOTE | 2023-05-09 16:41 | ED.GENADULT ---
HPI - General Adult General Chief complaint: Extremity Injury, Upper Stated complaint: pain to shoulder and arm Time Seen by Provider: 05/09/23 16:17 History of Present Illness HPI narrative: Wilfredo Bose is a 57 y/o male who resides at a nursing facility, under comfort measures and under hospice care. His baseline is oriented x 1 intermittent able to answer questions. Per EMS report they sent him here because he was complaining on right arm pain, and the hospice nurse was not available to see him. Patient is not able to express complaints appropriately There is no obvious right arm injury/ no erythema/ ecchymosis and pulses present. Related Data Home Medications Medication Instructions Recorded Confirmed Saccharomyces boulardii 250 mg 250 mg PO DAILY 11/22/22 12/15/22 capsule (Florastor) amitriptyline 50 mg tablet 50 mg PO QHS 11/22/22 12/15/22 apixaban 5 mg tablet (Eliquis) 5 mg PO BID 11/22/22 12/15/22 aspirin 81 mg tablet,delayed 81 mg PO DAILY 11/22/22 12/15/22 release (Adult Low Dose Aspirin) atorvastatin 40 mg tablet (Lipitor) 40 mg PO QHS 11/22/22 12/15/22 benzonatate 100 mg capsule 100 mg PO TID PRN Cough 11/22/22 12/15/22 buspirone 15 mg tablet 15 mg PO TID 11/22/22 12/15/22 famotidine 20 mg tablet 20 mg PO Q12H 11/22/22 12/15/22 fluticasone propionate 110 1 puff inhalation Q12H 11/22/22 12/15/22 mcg/actuation HFA aerosol inhaler gabapentin 100 mg capsule 100 mg PO Q8H 11/22/22 12/15/22 guaifenesin 100 mg/5 mL oral liquid 200 mg PO Q6H PRN Cough 11/22/22 12/15/22 ipratropium 0.5 mg-albuterol 3 mg 3 ml inhalation Q6H PRN Shortness 11/22/22 12/15/22 (2.5 mg base)/3 mL nebulization Of Breath soln isosorbide dinitrate 30 mg tablet 30 mg PO DAILY 11/22/22 12/15/22 pyridoxine (vitamin B6) 50 mg 50 mg PO DAILY 11/22/22 12/15/22 tablet sennosides 8.6 mg-docusate sodium 1 tab-cap PO BID 11/22/22 12/15/22 50 mg capsule (Senna Plus) tiotropium bromide 18 mcg capsule 1 cap inhalation DAILY 11/22/22 12/15/22 with inhalation device (Spiriva with HandiHaler) trazodone 100 mg tablet 100 mg PO QHS 11/22/22 12/15/22 umeclidinium 62.5 mcg-vilanterol 1 inh inhalation DAILY 11/22/22 12/15/22 25 mcg/actuation powdr for inhalation (Anoro Ellipta) clopidogrel 75 mg tablet 75 mg PO DAILY 12/15/22 12/15/22 dulaglutide 0.75 mg/0.5 mL 0.75 mg subcut WEEKLY 12/15/22 12/15/22 subcutaneous pen injector (Trulicity) insulin glargine 100 unit/mL 10 unit subcut HS 12/15/22 12/15/22 subcutaneous solution (Lantus U-100 Insulin) insulin lispro 100 unit/mL 10 unit subcut AC 12/15/22 12/15/22 subcutaneous solution (Admelog U-100 Insulin lispro) Allergies Allergy/AdvReac Type Severity Reaction Status Date / Time No Known Allergies Allergy Verified 05/09/23 16:08 Review of Systems Review of Systems: although difficult to get information from pt when asked he denies having pain ROS unobtainable: Yes unobtainable due to medical condition and unobtainable due to mental status PMFSH Past Medical History Medical History Acute renal failure superimposed on chronic kidney disease Anxiety Atrial flutter Benign hypertension with chronic kidney disease Cerebrovascular accident CHF (congestive heart failure) Chronic anemia Chronic anticoagulation Chronic kidney disease, stage IV (severe) Chronic obstructive pulmonary disease Chronic respiratory failure with hypoxia, on home oxygen therapy Combined systolic and diastolic congestive heart failure Coronary artery disease Depression Diabetes Diabetes mellitus with chronic kidney disease Gastroesophageal reflux disease HTN (hypertension) Hyperlipidemia Hypertension Hypothyroidism Insulin dependent type 2 diabetes mellitus Paroxysmal atrial fibrillation Peripheral neuropathy Peripheral vascular disease Spinal stenosis Surgical History Surgical History (Reviewed 05/09/23 @ 17:40 by Albina Goldstein Ma
--- NOTE | 2023-05-09 19:09 | PC.NURSE ---
Patient report given to CASSIA Arias. All questions answered and care of patient transferred.
== END 2023-05-09 20:10 ==
PROVIDERS: Emergency Provider Nurse Practitioner Family; PCP Internal Medicine
DX: M25.511 Pain in right shoulder (principal); E78.5 Hyperlipidemia, unspecified; E03.9 Hypothyroidism, unspecified; J44.9 Chronic obstructive pulmonary disease, unspecified; I13.0 Hypertensive heart and chronic kidney disease with heart failure and stage 1 through stage 4 chronic kidney disease, or unspecified chronic kidney disease; E11.22 Type 2 diabetes mellitus with diabetic chronic kidney disease; N18.4 Chronic kidney disease, stage 4 (severe); I50.9 Heart failure, unspecified; Z87.891 Personal history of nicotine dependence; I48.0 Paroxysmal atrial fibrillation; Z79.01 Long term (current) use of anticoagulants
CPT/HCPCS: 73080; 99283

== ENCOUNTER 2023-06-01 13:20 | Observation (INO) | payer OTHER, MEDICARE, MEDICAID, SELFPAY ==
[2023-06-01] VITALS (53 sets, daily range): BP systolic 109–185; BP diastolic 68–95; PULSE 82–132; RESP 5–24; TEMP 36.8–38.3; O2SAT 91–100
--- NOTE | ~2023-06-01 | XR_ITS ---
EXAMINATION: XR chest 2V DATE: 06/01/2023 14:05 INDICATION: Midsternal chest pain. TECHNIQUE: Frontal and lateral views of the chest were obtained. COMPARISON: Chest single view 01/20/2023, CT abdomen and pelvis 01/13/2023, chest CT 12/19/2022 FINDINGS: There are airspace opacities in right lower lobe. There are airspace opacities overlying ri ght perihilar region on the frontal view. There is a small right pleural effusion. No pneumothorax. C ardiomegaly is noted. There is electronic implant in left anterior chest wall. Median sternotomy wire s and mediastinal surgical clips are seen, likely from prior coronary artery bypass grafting. There is mild chronic anterior wedging of a lower thoracic vertebral body. IMPRESSION: 1. Airspace opacities in right lung, consistent with atelectasis versus pneumonia. Noncontrast chest CT is recommended to exclude malignancy. 2. Small right pleural effusion. 3. Cardiomegaly. Reviewed, dictated and finalized at location A. IMPRESSION: 1. Airspace opacities in right lung, consistent with atelectasis versus pneumon ia. Noncontrast chest CT is recommended to exclude malignancy. 2. Small right pleural effusion. 3. Cardiomegaly.
--- NOTE | ~2023-06-01 | CT_ITS ---
EXAMINATION: CT chest abdomen pelvis wo con DATE: 06/01/2023 15:55 CDT INDICATION: Abnormal chest x-ray. TECHNIQUE: Computed tomography (CT) of the chest, abdomen, and pelvis was performed without intraveno us contrast. The dose-length product was 1201.46 mGy-cm. Automated exposure control and iterative rec onstruction technique were employed. COMPARISON: Chest dated 06/01/[address] abdomen dated 01/13/2023 FINDINGS: CHEST CT: There is a large right upper lobe mass measuring 5.3 x 4.8 cm, consistent with bronchogenic carcinoma until proven otherwise. There is a 1.3 cm superior segment right lower lobe nodule, image 44. There is a small right pleural effusion. There is mediastinal and right hilar lymphadenopathy, likely metas tatic disease. There is evidence for chronic granulomatous disease. There is dependent atelectasis. T here is an 8 mm right lower lobe nodule, image 80. ABDOMEN/PELVIS CT: There are calcified granulomas of the spleen. The liver, pancreas, adrenal glands and kidneys are unr emarkable. There is extensive atherosclerosis. Nonobstructive bowel pattern. Moderate colonic fecal l oading. There is bladder wall thickening. There is gas in the bladder lumen non dependently, likely i atrogenic. There is atherosclerosis of the aorta without aneurysm. No significant lymphadenopathy. St atus post median sternotomy for CABG. There is moderate thoracic and lumbar spondylosis. There is dex troscoliosis of the thoracic spine. IMPRESSION: 1. Large 5.3 cm right upper lobe mass, consistent with bronchogenic carcinoma until proven otherwise. Additional nodules are present in the right lower lobe measuring up to 1.3 cm. There is mediastinal and right hilar lymphadenopathy. These findings are suspicious for metastatic disease. 2: Small right pleural effusion. 3: Bladder wall thickening, suspicious for cystitis. Correlate clinically. Nondependent gas in the b ladder lumen may be secondary to recent instrumentation. Reviewed, dictated and finalized at location A. IMPRESSION: 1. Large 5.3 cm right upper lobe mass, consistent with bronchogenic carcinoma u ntil proven otherwise. Additional nodules are present in the right lower lobe m easuring up to 1.3 cm. There is mediastinal and right hilar lymphadenopathy. Th michelet findings are suspicious for metastatic disease. 2: Small right pleural effusion. 3: Bladder wall thickening, suspicious for cystitis. Correlate clinically. Non dependent gas in the bladder lumen may be secondary to recent instrumentation.
--- NOTE | 2023-06-01 13:25 | ECG_ITS ---
Measurements Intervals [place] Rate: 98 P: ND: 0 QRS: -19 QRSD: 86 T: 11 QT: 347 QTc: 444 Interpretive Statements ATRIAL FLUTTER/TACHYCARDIA ABNORMAL RHYTHM ECG COMPARED TO ECG 12/27/2022 22:24:04 NO SIGNIFICANT CHANGES Electronically Signed On 06-02-2023 7:22:27 CDT by Chepe Haines M.D.
--- NOTE | 2023-06-01 13:55 | PC.NURSE ---
Patient off unit to radiology.
[2023-06-01 14:39] LABS: Basophils Absolute Auto 0.1 K/mm3 (0.0-0.1); Basophils Percent Auto 0.7 % (0.2-1.2); Eosinophils Percent Auto 0.5 % (0-4.4); Hematocrit 26.6 % (42.0-52.0); Hemoglobin 8.2 g/dL (14.0-18.0); Immature Granulocyte Absolute 0.03 K/mm3 (0.00-0.031); Immature Granulocyte Percent A 0.3 % (0-0.5); Lymphocytes Absolute Auto 0.57 K/mm3 (0.9-3.2); Lymphocytes Percent Auto 6.6 % (18.3-44.2); Mean Corpuscular HGB Conc 30.8 g/dl (32-36); Mean Corpuscular Hemoglobin 25.6 pg (26-34); Mean Corpuscular Volume 83.1 fl (80-100); Monocytes Absolute Auto 0.7 K/mm3 (0.1-0.6); Monocytes Percent Auto 7.5 % (2.6-8.5); Neutrophils Absolute Auto 7.3 K/mm3 (1.3-6.7); Neutrophils Percent Auto 84.4 % (45.5-73.1); Platelet Count Result 216 k/mm3 (150-375); Red Cell Distribution Width 12.8 % (11.5-14.5); White Blood Count 8.6 K/mm3 (4.5-10.0)
[2023-06-01 14:50] LABS: Alanine Aminotransferase 12 U/L (6-50); Albumin Level 3.3 g/dL (3.5-5.1); Alkaline Phosphatase 118 U/L (38-126); Anion Gap 5 mmol/L (8-16); Aspartate Amino Transferase 13 U/L (17-59); Bilirubin,Total 0.6 mg/dL (0.2-1.3); Blood Urea Nitrogen 49 mg/dL (9-20); Calcium 8.6 mg/dL (8.4-10.2); Carbon Dioxide 28 mmol/L (22-30); Chloride 102 mmol/L (98-107); Estimated CRCL calculation 42 ml/min; Estimated Glomerular Filt Rate 37; Glucose 227 mg/dL (65-110); INR 1.2; Lipase 39 U/L (23-300); Potassium 4.2 mmol/L (3.4-5.0); Prothrombin Time 15.9 Seconds (11.1-14.7); Sodium 135 mmol/L (137-145)
[2023-06-01 15:01] LABS: Troponin I < 0.012 ng/mL (0.000-0.034)
[2023-06-01] MEDS: PANTOPRAZOLE SODIUM IV 40 MG VIAL IV PUSH (15:21)
[2023-06-01] MEDS: BELLADONNA ALK/PHENOB ELIX 10 ML, MAG HYDROX/ALUMINUM HYD/SIMETH 30 ML, LIDOCAINE HCL 2... PO (15:21)
--- NOTE | 2023-06-01 15:49 | PC.NURSE ---
button sawyer Shauna [phone] [facility]
--- NOTE | 2023-06-01 16:02 | ED.GENADULT ---
HPI - General Adult General Chief complaint: Chest Pain Stated complaint: CPx3 Time Seen by Provider: 06/01/23 14:14 Source: patient, EMS and RN notes reviewed Mode of arrival: EMS History of Present Illness HPI narrative: This is a 57 year old male with multiple medical problems, on hospice for end stage renal disease who presents for evaluation of chest pain. Patient states he has chest pain but he is pointing to his upper abdomen. Nursing report pain has been present for 3 days. Patient reports pain is stabbing and intermittent. He was given nitro and morphine at nursing facility without relief. Patient reports pain 10/10 but he does not appear to be in distress. He states pain seems worse with eating . He also reports this pain is chronic. He denies fever, chills, shortness of breath, his pain is nonradiating Related Data Home Medications Medication Instructions Recorded Confirmed Saccharomyces boulardii 250 mg 250 mg PO DAILY 11/22/22 12/15/22 capsule (Florastor) amitriptyline 50 mg tablet 50 mg PO QHS 11/22/22 12/15/22 apixaban 5 mg tablet (Eliquis) 5 mg PO BID 11/22/22 12/15/22 aspirin 81 mg tablet,delayed 81 mg PO DAILY 11/22/22 12/15/22 release (Adult Low Dose Aspirin) atorvastatin 40 mg tablet (Lipitor) 40 mg PO QHS 11/22/22 12/15/22 benzonatate 100 mg capsule 100 mg PO TID PRN Cough 11/22/22 12/15/22 buspirone 15 mg tablet 15 mg PO TID 11/22/22 12/15/22 famotidine 20 mg tablet 20 mg PO Q12H 11/22/22 12/15/22 fluticasone propionate 110 1 puff inhalation Q12H 11/22/22 12/15/22 mcg/actuation HFA aerosol inhaler gabapentin 100 mg capsule 100 mg PO Q8H 11/22/22 12/15/22 guaifenesin 100 mg/5 mL oral liquid 200 mg PO Q6H PRN Cough 11/22/22 12/15/22 ipratropium 0.5 mg-albuterol 3 mg 3 ml inhalation Q6H PRN Shortness 11/22/22 12/15/22 (2.5 mg base)/3 mL nebulization Of Breath soln isosorbide dinitrate 30 mg tablet 30 mg PO DAILY 11/22/22 12/15/22 pyridoxine (vitamin B6) 50 mg 50 mg PO DAILY 11/22/22 12/15/22 tablet sennosides 8.6 mg-docusate sodium 1 tab-cap PO BID 11/22/22 12/15/22 50 mg capsule (Senna Plus) tiotropium bromide 18 mcg capsule 1 cap inhalation DAILY 11/22/22 12/15/22 with inhalation device (Spiriva with HandiHaler) trazodone 100 mg tablet 100 mg PO QHS 11/22/22 12/15/22 umeclidinium 62.5 mcg-vilanterol 1 inh inhalation DAILY 11/22/22 12/15/22 25 mcg/actuation powdr for inhalation (Anoro Ellipta) clopidogrel 75 mg tablet 75 mg PO DAILY 12/15/22 12/15/22 dulaglutide 0.75 mg/0.5 mL 0.75 mg subcut WEEKLY 12/15/22 12/15/22 subcutaneous pen injector (Trulicity) insulin glargine 100 unit/mL 10 unit subcut HS 12/15/22 12/15/22 subcutaneous solution (Lantus U-100 Insulin) insulin lispro 100 unit/mL 10 unit subcut AC 12/15/22 12/15/22 subcutaneous solution (Admelog U-100 Insulin lispro) Allergies Allergy/AdvReac Type Severity Reaction Status Date / Time No Known Allergies Allergy Verified 05/09/23 16:08 Review of Systems Constitutional: Constitutional: Denies weakness Cardiovascular: Cardiovascular: Reports chest pain, Denies syncope, Denies rapid heart rate, Denies irregular heart rhythm, Denies leg edema and Denies dyspnea Respiratory: Respiratory: Denies chest congestion, Denies hemoptysis, Denies excessive phlegm production and Denies dyspnea Gastrointestinal: Gastrointestinal: Denies abdominal pain, Denies hematochezia, Denies diarrhea and Denies vomiting Genitourinary: Genitourinary: Denies hematuria, Denies dysuria, Denies penile discharge and Denies testicular pain Musculoskeletal: Musculoskeletal: Denies joint swelling, Denies loss of height and Denies muscle weakness Neurologic: Denies syncope, Denies focal weakness and Denies weakness PMFSH Past Medical History Medical History Acute renal failure superimposed on chronic kidney disease Anxiety Atrial flutter Benign hypertension with chronic kidn
[2023-06-01 17:19] LABS: Troponin I < 0.012 ng/mL (0.000-0.034)
[2023-06-01] MEDS: ACETAMINOPHEN 500 MG TABLET 1000 MG PO (19:13)
[2023-06-01 19:37] LABS: Appearance Urine Cloudy (Clear); Bacteria Urine 4+ /hpf; Bilirubin Urine Negative (Negative); Blood Urine 1+ (Negative); Color Urine Yellow (Yellow); Glucose Urine UA 1+ mg/dL (Negative); Ketones Urine Negative (Negative); Leukocyte Esterase Ur 2+ LEU/UL (Negative); Nitrate Urine Negative (Negative); Non Pathogenic Casts 0-2; Protein Urine 3+ mg/dL (Negative); RBC Urine 0-2 /hpf (0-2); Specific Grav Ur 1.014 (1.001-1.035); Squamous Epithelial Cell Urine None seen /hpf (Few); Urobilinogen Urine 0.2 mg/dL (<2.0); WBC Urine 51-100 /hpf; pH Urine 5.5 (5.0-9.0)
[2023-06-01 19:40] LABS: Add Urine Microscopic? YES
--- NOTE | 2023-06-01 20:48 | PM.IMHP ---
H&P: HPI History of Present Illness Date/Time: 06/01/23 20:48 Chief Complaint: Epigastric pain Narrative: This is a 57-year-old male with past medical history significant for end-stage renal disease patient is in hospice care decided not to pursue hemodialysis. Presents to the emergency room due to epigastric pain. Preliminary workup was significant for urinalysis with numerous WBCs present. A CT of the chest showed infiltrates likely bronchogenic carcinoma. Patient has been admitted for further evaluation management and treatment. EXAMINATION: XR chest 2V DATE: 06/01/2023 14:05 INDICATION: Midsternal chest pain. TECHNIQUE: Frontal and lateral views of the chest were obtained. COMPARISON: Chest single view 01/20/2023, CT abdomen and pelvis 01/13/2023, chest CT 12/19/2022 FINDINGS: There are airspace opacities in right lower lobe. There are airspace opacities overlying right perihilar region on the frontal view. There is a small right pleural effusion. No pneumothorax. Cardiomegaly is noted. There is electronic implant in left anterior chest wall. Median sternotomy wires and mediastinal surgical clips are seen, likely from prior coronary artery bypass grafting.? There is mild chronic anterior wedging of a lower thoracic vertebral body. IMPRESSION: 1. Airspace opacities in right lung, consistent with atelectasis versus pneumonia. Noncontrast chest CT is recommended to exclude malignancy. 2. Small right pleural effusion. 3. Cardiomegaly. EXAMINATION: CT chest abdomen pelvis wo con DATE: 06/01/2023 15:55 CDT INDICATION: Abnormal chest x-ray. TECHNIQUE: Computed tomography (CT) of the chest, abdomen, and pelvis was performed without intravenous contrast. The dose-length product was 1201.46 mGy-cm. Automated exposure control and iterative reconstruction technique were employed. COMPARISON: Chest dated 06/01/[address] abdomen dated 01/13/2023 FINDINGS: CHEST CT: There is a large right upper lobe mass measuring 5.3 x 4.8 cm, consistent with bronchogenic carcinoma until proven otherwise. There is a 1.3 cm superior segment right lower lobe nodule, image 44. There is a small right pleural effusion. There is mediastinal and right hilar lymphadenopathy, likely metastatic disease. There is evidence for chronic granulomatous disease. There is dependent atelectasis. There is an 8 mm right lower lobe nodule, image 80. ABDOMEN/PELVIS CT: There are calcified granulomas of the spleen. The liver, pancreas, adrenal glands and kidneys are unremarkable. There is extensive atherosclerosis. Nonobstructive bowel pattern. Moderate colonic fecal loading. There is bladder wall thickening. There is gas in the bladder lumen non dependently, likely iatrogenic. There is atherosclerosis of the aorta without aneurysm. No significant lymphadenopathy. Status post median sternotomy for CABG. There is moderate thoracic and lumbar spondylosis. There is dextroscoliosis of the thoracic spine. IMPRESSION: 1. Large 5.3 cm right upper lobe mass, consistent with bronchogenic carcinoma until proven otherwise. Additional nodules are present in the right lower lobe measuring up to 1.3 cm. There is mediastinal and right hilar lymphadenopathy. These findings are suspicious for metastatic disease. 2:? Small right pleural effusion. 3:? Bladder wall thickening, suspicious for cystitis. Correlate clinically. Nondependent gas in the bladder lumen may be secondary to recent instrumentation. Review of Systems Review of Systems: Epigastric pain ROS unobtainable: Yes unobtainable due to mental status (Lethargy, obtundation) [facility] Past Medical History Medical History Acute renal failure superimposed on chronic kidney disease Anxiety Atrial flutter Benign hypertension with chronic kidney disease Cerebrovascular accident CHF (congestive heart failure) Chronic anemia Chronic anticoagulation Chronic kidney disease, stage IV (sever
--- NOTE | 2023-06-01 23:43 | ADMGEN ---
This patient, Wilfredo Bose, was admitted to Medical Room 349-01. Patient/family oriented to hospital policies and general routines including ID bracelet, bed and alarms, visiting hours, pain management, procedures, bathroom and other care routines, personal items, smoking policy, room service/diet, and visiting hours. Information on how to activate the Rapid Response Team has been discussed. Patient/Family are encouraged to report perceived risks to care and to ask questions if they do not understand what they are told or what they should do.
[2023-06-02 02:15] VITALS: BP 123/61; PULSE 82; RESP 16; TEMP 36.6; O2SAT 94
[2023-06-02] MEDS: PIPERACILLN/TAZ 3.375GM/NS50ML 3.375 GM/50 ML BAG IVPB (02:43)
[2023-06-02] MEDS: MORPHINE SULFATE ORAL CONC SOL (*CRX) 10 MG/0.5 ML SYRINGE 5 MG PO ×5 (02:48→17:37)
[2023-06-02 05:40] LABS: Basophils Percent Auto 0.6 % (0.2-1.2); Eosinophils Absolute Auto 0.1 K/mm3 (0-0.3); Eosinophils Percent Auto 0.9 % (0-4.4); Hematocrit 26.2 % (42.0-52.0); Hemoglobin 8.1 g/dL (14.0-18.0); Immature Granulocyte Absolute 0.03 K/mm3 (0.00-0.031); Immature Granulocyte Percent A 0.4 % (0-0.5); Lymphocytes Absolute Auto 0.47 K/mm3 (0.9-3.2); Mean Corpuscular HGB Conc 30.9 g/dl (32-36); Mean Platelet Volume 10.1 fl (7.4-10.4); Monocytes Absolute Auto 0.5 K/mm3 (0.1-0.6); Monocytes Percent Auto 7.9 % (2.6-8.5); Neutrophils Absolute Auto 5.6 K/mm3 (1.3-6.7); Neutrophils Percent Auto 83.2 % (45.5-73.1); Platelet Count Result 200 k/mm3 (150-375); Red Blood Count 3.12 M/mm3 (4.6-6.20); Red Cell Distribution Width 12.6 % (11.5-14.5); White Blood Count 6.7 K/mm3 (4.5-10.0)
[2023-06-02 05:59] LABS: Alanine Aminotransferase 10 U/L (6-50); Albumin Level 3.2 g/dL (3.5-5.1); Alkaline Phosphatase 113 U/L (38-126); Anion Gap 7 mmol/L (8-16); Aspartate Amino Transferase 13 U/L (17-59); Bilirubin,Total 0.8 mg/dL (0.2-1.3); Blood Urea Nitrogen 46 mg/dL (9-20); Calcium 8.5 mg/dL (8.4-10.2); Carbon Dioxide 24 mmol/L (22-30); Chloride 103 mmol/L (98-107); Estimated CRCL calculation 44 ml/min; Estimated Glomerular Filt Rate 39; Glucose 167 mg/dL (65-110); Potassium 3.8 mmol/L (3.4-5.0); Sodium 134 mmol/L (137-145)
[2023-06-02 06:00] VITALS: BP 135/53; PULSE 82; RESP 18; TEMP 36.6; O2SAT 96
[2023-06-02 08:26] LABS: Glucose Point of Care 163 mg/dl (65-105)
[2023-06-02] MEDS: PANTOPRAZOLE 40 MG TABLET PO (08:40)
[2023-06-02 09:15] VITALS: O2SAT 96
[2023-06-02 12:26] LABS: Glucose Point of Care 201 mg/dl (65-105)
[2023-06-02 14:39] LABS: SARS-CoV-2 RNA PCR Negative (Negative)
--- NOTE | 2023-06-02 14:43 | PM.DS ---
DS: Admitting Diagnosis Discharge Date 06/02/23 Admitting Diagnosis Chest pain DS: Discharge Diagnosis Discharge Diagnosis (1) Chest pain: Code(s): R07.9 - Chest pain, unspecified Status: Acute (2) Acute UTI: Code(s): N39.0 - Urinary tract infection, site not specified Status: Acute (3) Mass of upper lobe of right lung: Code(s): R91.8 - Other nonspecific abnormal finding of lung field Status: Acute (4) Fever: Code(s): R50.9 - Fever, unspecified Status: Acute (5) ESRD on hemodialysis: Code(s): N18.6 - End stage renal disease; Z99.2 - Dependence on renal dialysis Status: Acute (6) Chronic obstructive pulmonary disease: Code(s): J44.9 - Chronic obstructive pulmonary disease, unspecified Status: Chronic DS: Summary Hospital Course Reason for hospitalization: 57yo male with CHF, renal failure and DM here for chest pain. Please see H&P for details. Hospital Course: Patient presents with chest pain. EKG shows possibly atrial flutter. Troponin was negative x2. Chest pain on exam was palpable and parasternal. He has a history CABG. It was suspected his chest pain was musculoskeletal. Patient was here in December with acute kidney injury requiring dialysis. Was discharged with outpatient dialysis arranged. Patient refused dialysis catheter has been removed. He is on hospice for this reason. Renal function here shows BUN of 49 and creatinine 1.9. His potassium and serum bicarb levels were normal. He is making good urine. Urinalysis here was consistent with UTI. He did have fever on admission probably related to UTI. Chest x-ray was concerning for lung mass. A CT of the chest, abdomen and pelvis shows a large 5.3 cm right upper lobe mass consistent with bronchogenic carcinoma. There are additional nodules including a right lower lobe mass measuring 1.3 cm and mediastinal and right hilar adenopathy. He has a small right pleural effusion. Bladder wall thickening consistent with cystitis. Blood and urine cultures were collected. He was started on IV antibiotics. Hemoglobin was 8.2 with normal white count. Patient was alert and mostly oriented. Long discussion with him about options. He was uncertain on how to proceed. Discussed the pros and cons of proceeding with further evaluation of lung mass. He asked that I speak with his father. Long discussion with father as well. Options discussed. Father [facility] Spoke again with the patient. He is agreeable to be discharged back on hospice. He will consider further options over the weekend and will discuss further care plans with his father on June 06 with his father arrives for a visit. He agrees for abx treatment for his UTI. Annia overall did well and was able to be discharged back to [facility] on hospice care. staffing coordinator notified. Status at Discharge Cognitive/behavioral status at discharge: Stable Time Spent with Patient Time attestation: Total time spent providing and/or coordinating discharge services: 40 minutes Time spent: Greater than 30 minutes Exam Narrative: AF 97.9 135/53 82 18 96% ra Gen - NARD Chest - CTA bilaterally, nml RR CV - RRR S1/S2. chest wall tenderness Abd - Soft, NT/ND, Positive BS Ext - No left pedal edema. Rt BKA Neuro - Alert and oriented x3 (not month) Psych - Nml mood and affect Skin - Warm and dry DS: Data Data Completed and Pending Labs on day of discharge: Labs from last 24 hours 06/02/23 06/02/23 06/02/23 12:24 08:21 05:14 WBC 6.7 RBC 3.12 L Hgb 8.1 L Hct 26.2 L MCV 84.0 MCH 26.0 MCHC 30.9 L RDW 12.6 Plt Count 200 MPV 10.1 Immature Gran % (Auto) 0.4 Neut % (Auto) 83.2 H Lymph % (Auto) 7.0 L [place] % (Auto) 7.9 Eos % (Auto) 0.9 Baso % (Auto) 0.6 Lymph # (Auto) 0.47 L [place] # (Auto) 0.5 Eos # (Auto)
[2023-06-02 15:01] VITALS: BP 138/65; PULSE 70; RESP 18; TEMP 36.6; O2SAT 98
--- NOTE | 2023-06-05 08:06 | PC.NURSE ---
Urine cx. results sent to ENR.
--- NOTE | 2023-06-09 07:04 | PC.NURSE ---
Blood cx are negative. Dr. Celina gloria.
== END 2023-06-02 18:00 | disposition hospice, inpatient (51) ==
LOC: ANHED 17:52 → ANH3MED 23:04
PROVIDERS: Admitting Provider Internal Medicine; Emergency Provider General Practice; PCP Internal Medicine; Visit Provider Internal Medicine
DX: R07.9 Chest pain, unspecified (principal); N39.0 Urinary tract infection, site not specified; B96.20 Unspecified Escherichia coli [E. coli] as the cause of diseases classified elsewhere; N17.9 Acute kidney failure, unspecified; I13.0 Hypertensive heart and chronic kidney disease with heart failure and stage 1 through stage 4 chronic kidney disease, or unspecified chronic kidney disease; I50.40 Unspecified combined systolic (congestive) and diastolic (congestive) heart failure; D63.1 Anemia in chronic kidney disease; E11.22 Type 2 diabetes mellitus with diabetic chronic kidney disease; N18.4 Chronic kidney disease, stage 4 (severe); I25.10 Atherosclerotic heart disease of native coronary artery without angina pectoris; Z95.1 Presence of aortocoronary bypass graft; F41.9 Anxiety disorder, unspecified; Z20.822 Contact with and (suspected) exposure to COVID-19; I48.0 Paroxysmal atrial fibrillation; Z66 Do not resuscitate; J90 Pleural effusion, not elsewhere classified; R91.8 Other nonspecific abnormal finding of lung field; E11.42 Type 2 diabetes mellitus with diabetic polyneuropathy; E11.51 Type 2 diabetes mellitus with diabetic peripheral angiopathy without gangrene; E78.5 Hyperlipidemia, unspecified; E03.9 Hypothyroidism, unspecified; R94.31 Abnormal electrocardiogram [ECG] [EKG]; K21.9 Gastro-esophageal reflux disease without esophagitis; J96.11 Chronic respiratory failure with hypoxia; Z99.81 Dependence on supplemental oxygen; J44.9 Chronic obstructive pulmonary disease, unspecified; I48.92 Unspecified atrial flutter; Z79.4 Long term (current) use of insulin; F12.90 Cannabis use, unspecified, uncomplicated; Z87.891 Personal history of nicotine dependence; Z86.73 Personal history of transient ischemic attack (TIA), and cerebral infarction without residual deficits; Z83.3 Family history of diabetes mellitus; Z82.49 Family history of ischemic heart disease and other diseases of the circulatory system
CPT/HCPCS: 36415; 71046; 71250; 74176; 80053; 81001; 82948; 83690; 84484; 85025; 85610; 85730; 87040; 87077; 87086; 87186; 87635; 93005; 96365; 96374; 96375; 99285; A9270; C9113; G0378; J0696; J2543

== ENCOUNTER 2023-11-01 02:53 | Emergency (ER) | payer MEDICARE, MEDICAID, SELFPAY ==
--- NOTE | ~2023-11-01 | CT_ITS ---
CT head without contrast Indication: Head injury COMPARISON: 11/23/2022 Technique: Serial scans were obtained through the brain without the administration of contrast. Dose reduction technique was used on this scan by utilizing automated exposure control and iterative recon struction technique. The dose-length product (DLP) was 681.00 mGy-cm. Findings: There is no evidence of intracranial hemorrhage, mass lesion, or acute infarct. The ventri cles and subarachnoid spaces are dilated, consistent with mild atrophy. Low attenuation regions are seen within the periventricular white matter bilaterally, likely representing changes from chronic mi crovascular ischemic disease. There is no evidence of edema, mass effect or midline shift. The visu alized paranasal sinuses and mastoid air cells are clear. Impression: No intracranial hemorrhage, mass, or acute infarct. Atrophy and chronic white matter changes, as above. Reviewed, dictated and finalized at [facility]. Impression: No intracranial hemorrhage, mass, or acute infarct. Atrophy and chronic white matter changes, as above.
--- NOTE | ~2023-11-01 | CT_ITS ---
Noncontrast CT scan of the cervical spine Technique: Multiple contiguous axial [address] images of the cervical spine were obtained and rec onstructed in 2D sagittal and coronal planes on the acquisition scanner. Dose reduction technique was used on this scan by utilizing automated exposure control, adjustment of the mA and/or kV according to patient size. The dose-length product (DLP) was 528.61 mGy-cm. Clinical History: Pain Findings: No fractures or dislocations. There is advanced degenerative disc narrowing at C3-C4, C5-C 6, and C6-C7. There is left neural foraminal narrowing at C3-C4 with left facet arthropathy. There is bilateral neural foraminal narrowing, left worse than right, at C5-C6. There are scattered facet yanet nt degenerative changes. There is disc osteophyte complex with probable mild canal stenosis at C5-C6. No prevertebral soft tissue swelling. [id number] right pleural effusion partially imaged. Impression: No fracture or subluxation of the cervical spine. Moderate degenerative spondylosis, as above. [id number] right pleural effusion partially imaged. Reviewed, dictated and finalized at location . Impression: No fracture or subluxation of the cervical spine. Moderate degenerative spondylosis, as above. [id number] right pleural effusion partially imaged.
[2023-11-01 02:55] VITALS: BP 141/79; PULSE 95; RESP 18; TEMP 36.5; O2SAT 97
[2023-11-01 02:59] VITALS: BP 141/79; PULSE 95; RESP 22; O2SAT 95
--- NOTE | 2023-11-01 03:02 | ED.GENADULT ---
HPI - General Adult General Chief complaint: Fall Stated complaint: glf Time Seen by Provider: 11/01/23 02:54 History of Present Illness HPI narrative: Patient is a 58-year-old gentleman who presents emergency department with chief complaint of ground level fall from wheelchair. Patient is currently hospice patient and fell out of his wheelchair and reports the pain in his neck and head. Patient had no loss of consciousness the patient asked to be transported to the emergency department for evaluation Related Data Home Medications Medication Instructions Recorded Confirmed atropine 1 % eye drops 4 drp PO Q2H PRN Secretions 06/02/23 06/02/23 bisacodyl 10 mg rectal suppository 10 mg RECTAL DAILY PRN Constipation 06/02/23 06/02/23 ondansetron 4 mg disintegrating 4 mg PO Q6H PRN Nausea And Vomiting 06/02/23 06/02/23 tablet Allergies Allergy/AdvReac Type Severity Reaction Status Date / Time No Known Allergies Allergy Verified 05/09/23 16:08 Review of Systems Review of Systems: A 10 system review of systems was completed on the patient and is negative except for what is stated in the HPI. Nursing and ancillary documentation was reviewed. [facility] Past Medical History Medical History Acute renal failure superimposed on chronic kidney disease Anxiety Atrial flutter Benign hypertension with chronic kidney disease Cerebrovascular accident CHF (congestive heart failure) Chronic anemia Chronic anticoagulation Chronic kidney disease, stage IV (severe) Chronic obstructive pulmonary disease Chronic respiratory failure with hypoxia, on home oxygen therapy Combined systolic and diastolic congestive heart failure Coronary artery disease Depression Diabetes Diabetes mellitus with chronic kidney disease Gastroesophageal reflux disease HTN (hypertension) Hyperlipidemia Hypertension Hypothyroidism Insulin dependent type 2 diabetes mellitus Paroxysmal atrial fibrillation Peripheral neuropathy Peripheral vascular disease Spinal stenosis Surgical History Surgical History History of cardiac catheterization History of four vessel coronary artery bypass graft History of hernia repair History of right below knee amputation Family History Family History Mother Diabetes mellitus Hypertension Heart disease Father Crohn disease Cancer Social History Social History Social History: Surrogate medical decision maker: Wilfredo Bose Sr. (father). Code status: Do not resuscitate. Smoking packs per day: 1 Smoking cigarettes per day: 20.0 Years smoked: 4 Smoking pack-years: 4.00 Smoking status: Former smoker Tobacco type: cigarettes Second hand tobacco smoke exposure: Yes Alcohol intake: never Substance use: former Substance use type: marijuana Last use: 09/25/2022 Lack of Transportation: No Lack of Food: Never True Current Housing: I Have Housing Concerned About Future Housing: No Difficulty Paying Gas/Electric Bills: No Difficulty Paying for Meds: No Currently Unemployed: No Education: High School Diploma/GED Difficulty w/ Childcare or Family Care: No Living arrangements: assisted living Additional living arrangements comments: [facility]. Spiritual care concerns: No Exam Narrative: GENERAL: Well-appearing, well-nourished, and in no acute distress. HEAD: Normocephalic, atraumatic. EYES: PERRLA and EOMI. ENT: Nares clear, no rhinorrhea or epistaxis. Mucous membranes moist. NECK: Supple. Tender to palpation CHEST: Clear to auscultation. No respiratory distress. HEART: Regular rate and rhythm. No murmur heard. Normal peripheral pulses. ABDOMEN: Soft, nontender, nondistended, normal active bowel twan
[2023-11-01] MEDS: MORPHINE SULFATE (*CRX) 4 MG/ML INJ IV PUSH (03:05)
[2023-11-01 03:11] VITALS: PULSE 77
--- NOTE | 2023-11-01 03:11 | PC.NURSE ---
Patient's heart rhythm was showing 77bpm atrial flutter. EDP Dr. French aware.
[2023-11-01 03:30] VITALS: O2SAT 100
[2023-11-01 04:23] VITALS: BP 142/76; PULSE 86; RESP 12; O2SAT 100
[2023-11-01 04:56] VITALS: BP 135/70; PULSE 88; RESP 14; O2SAT 95
== END 2023-11-01 05:28 ==
PROVIDERS: Emergency Provider Emergency Medicine; PCP Internal Medicine
DX: S09.90XA Unspecified injury of head, initial encounter (principal); S16.1XXA Strain of muscle, fascia and tendon at neck level, initial encounter; F41.9 Anxiety disorder, unspecified; I13.0 Hypertensive heart and chronic kidney disease with heart failure and stage 1 through stage 4 chronic kidney disease, or unspecified chronic kidney disease; E11.22 Type 2 diabetes mellitus with diabetic chronic kidney disease; N18.9 Chronic kidney disease, unspecified; I50.82 Biventricular heart failure; Z79.4 Long term (current) use of insulin; E03.9 Hypothyroidism, unspecified; E78.5 Hyperlipidemia, unspecified; I25.10 Atherosclerotic heart disease of native coronary artery without angina pectoris; J44.9 Chronic obstructive pulmonary disease, unspecified; Z79.1 Long term (current) use of non-steroidal anti-inflammatories (NSAID); W05.0XXA Fall from non-moving wheelchair, initial encounter
CPT/HCPCS: 70450; 72125; 96374; 99284; J2270

== ENCOUNTER 2023-12-29 18:11 | Emergency (ER) | payer OTHER, MEDICARE, MEDICAID, SELFPAY ==
--- NOTE | ~2023-12-29 | CT_ITS ---
EXAMINATION: CT abdomen pelvis wo con DATE: 12/29/2023 19:09 INDICATION: Right flank pain TECHNIQUE: Computed tomography (CT) of the abdomen and pelvis was performed without intravenous contr ast. Automated exposure control and iterative reconstruction technique were employed. The dose-length product was 739.58 mGy-cm. COMPARISON: 06/01/2023 FINDINGS: Small right pleural effusion. Groundglass opacities in the bilateral lower lungs which could represen t atelectasis or mild pulmonary edema. There is a 4.1 x 2.3 cm pleural-based masslike opacity at the lateral basilar right lower lobe with some associated volume loss and which given the rapid developme nt with no evident corresponding nodular mass on CT dated 06/01/2023 would favor round atelectasis. A dditional peripheral pleural parenchymal atelectasis/scarring at the right middle lobe. Moderate card iomegaly. Atherosclerotic coronary artery calcifications. No pericardial effusion. Calcified mediasti nal lymph nodes consistent with old granulomatous disease. Small sliding-type hiatal hernia. Status post cholecystectomy. A few small hepatic and splenic calcifications also consistent with old granulomatous disease. Pancreas and bilateral adrenal glands are normal. There is mild right hydroure teronephrosis without evident obstructing stone or mass. Atherosclerotic calcification is at the bila teral renal amanda. No evident urolithiasis. Bladder is normal. Small bilateral fat-containing inguinal hernias. Large amount of stool scattered throughout the colon. Small bowel and appendix are normal. Small fat-containing umbilical hernia. No free intraperitoneal gas or fluid. No pathologically enlarg ed abdominal or pelvic lymphadenopathy. Extensive vascular calcifications throughout the abdomen and pelvis as well as of the seminal vesicles which can be seen in the setting of diabetes. IMPRESSION: 1. Mild right hydroureteronephrosis without evident obstructing stone or mass. No evident urolithiasi s. 2. 4.1 x 2.3 similar right lower lobe mass which is new since study 7 months prior and with some librado esponding architectural distortion indicating volume loss which would be most consistent with round a telectasis. 3. Small right pleural effusion. 4. Moderate cardiomegaly. 5. Small sliding-type hiatal hernia. 6. Small fat-containing umbilical and bilateral inguinal hernias. Reviewed, dictated and finalized at location A. IMPRESSION: 1. Mild right hydroureteronephrosis without evident obstructing stone or mass. No evident urolithiasis. 2. 4.1 x 2.3 similar right lower lobe mass which is new since study 7 months pr ior and with some corresponding architectural distortion indicating volume loss which would be most consistent with round atelectasis. 3. Small right pleural effusion. 4. Moderate cardiomegaly. 5. Small sliding-type hiatal hernia. 6. Small fat-containing umbilical and bilateral inguinal hernias.
[2023-12-29 18:22] VITALS: BP 149/108; PULSE 123; RESP 11; TEMP 36.8; O2SAT 95
--- NOTE | 2023-12-29 18:49 | PC.NURSE ---
Patient's hospice company notified of his arrival to the ED. [facility] will call RN on-call and call back with information.
--- NOTE | 2023-12-29 18:58 | ED.GENADULT ---
HPI - General Adult General Chief complaint: Recheck/Abnormal Lab/Rx Stated complaint: right flank pain, high blood sugar Time Seen by Provider: 12/29/23 18:13 History of Present Illness HPI narrative: patient is a 58-year-old male with chronic kidney disease who is on hospice that presents ER with right flank pain. Patient is oriented to self and place but not to the situation. He cannot provide any information about his chronic health history. We were able to discover that patient is with [facility] for his hospice care. Patient is alert orient x2 at baseline. Related Data Home Medications Medication Instructions Recorded Confirmed atropine 1 % eye drops 4 drp PO Q2H PRN Secretions 06/02/23 06/02/23 bisacodyl 10 mg rectal suppository 10 mg RECTAL DAILY PRN Constipation 06/02/23 06/02/23 ondansetron 4 mg disintegrating 4 mg PO Q6H PRN Nausea And Vomiting 06/02/23 06/02/23 tablet Allergies Allergy/AdvReac Type Severity Reaction Status Date / Time No Known Allergies Allergy Verified 05/09/23 16:08 Review of Systems Review of Systems: ROS unobtainable: Yes unobtainable due to mental status PMFSH Past Medical History Medical History Acute renal failure superimposed on chronic kidney disease Anxiety Atrial flutter Benign hypertension with chronic kidney disease Cerebrovascular accident CHF (congestive heart failure) Chronic anemia Chronic anticoagulation Chronic kidney disease, stage IV (severe) Chronic obstructive pulmonary disease Chronic respiratory failure with hypoxia, on home oxygen therapy Combined systolic and diastolic congestive heart failure Coronary artery disease Depression Diabetes Diabetes mellitus with chronic kidney disease Gastroesophageal reflux disease HTN (hypertension) Hyperlipidemia Hypertension Hypothyroidism Insulin dependent type 2 diabetes mellitus Paroxysmal atrial fibrillation Peripheral neuropathy Peripheral vascular disease Spinal stenosis Surgical History Surgical History History of cardiac catheterization History of four vessel coronary artery bypass graft History of hernia repair History of right below knee amputation Family History Family History Mother Diabetes mellitus Hypertension Heart disease Father Crohn disease Cancer Social History Social History Social History: Surrogate medical decision maker: Wilfredo Bose Sr. (father). Code status: Do not resuscitate. Smoking packs per day: 1 Smoking cigarettes per day: 20.0 Years smoked: 4 Smoking pack-years: 4.00 Smoking status: Former smoker Tobacco type: cigarettes Second hand tobacco smoke exposure: Yes Alcohol intake: never Substance use: former Substance use type: marijuana Last use: 09/25/2022 Lack of Transportation: No Lack of Food: Never True Current Housing: I Have Housing Concerned About Future Housing: No Difficulty Paying Gas/Electric Bills: No Difficulty Paying for Meds: No Currently Unemployed: No Education: High School Diploma/GED Difficulty w/ Childcare or Family Care: No Living arrangements: assisted living Additional living arrangements comments: [facility]. Spiritual care concerns: No Exam Narrative: GENERAL: Well-appearing, well-nourished, and in no acute distress. HEAD: Normocephalic, atraumatic. ENT: Mucous membranes moist. NECK: Supple. CHEST: Clear to auscultation. No respiratory distress. HEART: Regular rate and rhythm. Normal peripheral pulses. ABDOMEN: Soft, nontender, nondistended. EXTREMITIES: Normal range of motion. No edema. Right BKA SKIN: Warm, dry, no rash. NEURO: Alert and oriented x2-3. Course Course Emergency Course: 1903: Spoke with
[2023-12-29 19:53] LABS: Basophils Absolute Auto 0.1 K/mm3 (0.0-0.1); Basophils Percent Auto 1.1 % (0.2-1.2); Eosinophils Absolute Auto 0.1 K/mm3 (0-0.3); Eosinophils Percent Auto 1.1 % (0-4.4); Hematocrit 35.8 % (42.0-52.0); Hemoglobin 11.7 g/dL (14.0-18.0); Immature Granulocyte Absolute 0.03 K/mm3 (0.00-0.031); Immature Granulocyte Percent A 0.6 % (0-0.5); Lymphocytes Absolute Auto 0.61 K/mm3 (0.9-3.2); Mean Corpuscular HGB Conc 32.7 g/dl (32-36); Mean Corpuscular Hemoglobin 25.7 pg (26-34); Mean Corpuscular Volume 78.5 fl (80-100); Mean Platelet Volume 10.3 fl (7.4-10.4); Monocytes Absolute Auto 0.3 K/mm3 (0.1-0.6); Monocytes Percent Auto 6.8 % (2.6-8.5); Neutrophils Absolute Auto 3.7 K/mm3 (1.3-6.7); Neutrophils Percent Auto 77.4 % (45.5-73.1); Platelet Count Result 160 k/mm3 (150-375); Red Blood Count 4.56 M/mm3 (4.6-6.20); Red Cell Distribution Width 17.6 % (11.5-14.5); White Blood Count 4.7 K/mm3 (4.5-10.0)
[2023-12-29 20:07] LABS: Alanine Aminotransferase 15 U/L (6-50); Albumin Level 4.2 g/dL (3.5-5.1); Alkaline Phosphatase 103 U/L (38-126); Anion Gap 7 mmol/L (4-12); Aspartate Amino Transferase 18 U/L (17-59); Bilirubin,Total 0.9 mg/dL (0.2-1.3); Blood Urea Nitrogen 80 mg/dL (9-20); Calcium 9.4 mg/dL (8.4-10.2); Carbon Dioxide 29 mmol/L (22-30); Chloride 93 mmol/L (98-107); Estimated CRCL calculation 35 ml/min; Estimated Glomerular Filt Rate 24; Glucose 455 mg/dL (65-110); Potassium 4.8 mmol/L (3.4-5.0); Sodium 129 mmol/L (137-145)
[2023-12-29 21:07] LABS: Appearance Urine Cloudy (Clear); Bacteria Urine 4+ /hpf; Bilirubin Urine Negative (Negative); Blood Urine Trace (Negative); Color Urine Yellow (Yellow); Glucose Urine UA 3+ mg/dL (Negative); Ketones Urine Negative (Negative); Leukocyte Esterase Ur 2+ LEU/UL (Negative); Nitrate Urine Negative (Negative); Non Pathogenic Casts 0-2; Protein Urine 2+ mg/dL (Negative); RBC Urine 0-2 /hpf (0-2); Specific Grav Ur 1.013 (1.001-1.035); Squamous Epithelial Cell Urine None Seen /hpf (Few); Urobilinogen Urine 0.2 mg/dL (<2.0); WBC Urine >100 /hpf (0-3); pH Urine 6.5 (5.0-9.0)
[2023-12-29 21:08] LABS: Add Urine Microscopic? YES
--- NOTE | 2023-12-29 21:31 | PC.NURSE ---
Report/ discharge instructions called to Zakia VALLES at [facility]
[2023-12-29 21:32] VITALS: BP 121/91; PULSE 111; RESP 16; TEMP 37.2; O2SAT 100
== END 2023-12-29 23:26 | disposition hospice, home (50) ==
LOC: ANHED 21:14
PROVIDERS: Emergency Provider Emergency Medicine; PCP Internal Medicine
DX: N39.0 Urinary tract infection, site not specified (principal); N13.30 Unspecified hydronephrosis; N17.9 Acute kidney failure, unspecified; I13.0 Hypertensive heart and chronic kidney disease with heart failure and stage 1 through stage 4 chronic kidney disease, or unspecified chronic kidney disease; E11.22 Type 2 diabetes mellitus with diabetic chronic kidney disease; N18.4 Chronic kidney disease, stage 4 (severe); I50.40 Unspecified combined systolic (congestive) and diastolic (congestive) heart failure; I25.10 Atherosclerotic heart disease of native coronary artery without angina pectoris; E11.51 Type 2 diabetes mellitus with diabetic peripheral angiopathy without gangrene; I73.9 Peripheral vascular disease, unspecified; E11.42 Type 2 diabetes mellitus with diabetic polyneuropathy; I48.0 Paroxysmal atrial fibrillation; E78.5 Hyperlipidemia, unspecified; E03.9 Hypothyroidism, unspecified; J44.9 Chronic obstructive pulmonary disease, unspecified; J96.11 Chronic respiratory failure with hypoxia; Z99.81 Dependence on supplemental oxygen; D64.9 Anemia, unspecified; K21.9 Gastro-esophageal reflux disease without esophagitis; F32.A Depression, unspecified; Z66 Do not resuscitate; Z95.1 Presence of aortocoronary bypass graft; Z86.73 Personal history of transient ischemic attack (TIA), and cerebral infarction without residual deficits; Z87.891 Personal history of nicotine dependence; Z89.511 Acquired absence of right leg below knee; Z79.891 Long term (current) use of opiate analgesic
CPT/HCPCS: 36415; 74176; 80053; 81001; 85025; 87077; 87086; 87088; 87186; 96365; 99284; J0696